=== PATIENT | male | born 1940 | race Two or more races ===

== ENCOUNTER 2016-07-28 15:49 | Emergency (ER) | payer MEDICARE ==
[2016-07-28 16:09] VITALS: BP 146/73
--- NOTE | 2016-07-28 16:51 | UC ---
Abdominal Pain Male HPI - HPI Summary HPI Summary: Pt presents with request for refill on Lomotil. Pt initially reported that his BM's have been formed and without: constipation, loose, blood mucous or foul order. During examination pt then reported that he ;had loose stools 1-3 X's per day for 3 days. Additionally, I asked the pt if he had taken OTC imodium and at first he stated that no he had not. Then during the exam he reported that yes he had taken imodium yesterday with no improvement. - History of Current Complaint Chief Complaint: UCAbdominalPain Stated Complaint: DIARRHEA Time Seen by Provider: 07/28/16 16:05 Hx Obtained From: Patient Onset/Duration: Gradual Onset, Lasting Days Timing: Intermittent Episodes Lasting: - minutes Severity Initially: Mild Severity Currently: None Radiates: No Aggravating Factor(s):: Nothing - denies Alleviating Factor(s): Nothing - denies Associated Signs And Symptoms: Positive: Diarrhea - pt's information regarding BM pattern has not been consistent throughout exam - Allergies/Home Medications Allergies/Adverse Reactions: Allergies Allergy/AdvReac Type Severity Reaction Status Date / Time No Known Allergies Allergy Verified 07/28/16 16:03 PMH/Surg Hx/FS Hx/Imm Hx Previously Healthy: No - see pmh Endocrine History Of: Reports: Diabetes - ., Dyslipidemia - On Denies: Thyroid Disease Cardiovascular History Of: Reports: Cardiac Disorders - [place] 03/2016, Hypertension Denies: Pacemaker/ICD, Myocardial Infarction, Congestive Heart Failure, Atrial Fibrillation, Deep Vein Thrombosis, Bleeding Disorders Respiratory History Of: Denies: COPD, Asthma, Bronchitis, Pneumonia, Pulmonary Embolism GI/ History Of: Denies: Gastroesophageal Reflux, Ulcer, Gastrointestinal Bleed, Gall Bladder Disease, Kidney Stones, Diverticulitis, Renal Disease, Urosepsis Neurological History Of: Denies: TIA, CVA, Dementia, Seizures, Migraine Psychological History Of: Denies: Anxiety, Depression, Bipolar Disorder, Schizophrenia, Post Traumatic Stress Disorder Cancer History Of: Denies: Lung Cancer, Colorectal Cancer, Breast Cancer, Prostate Cancer, Cervical Cancer Other History Of: Negative For: HIV, Hepatitis B, Hepatitis C, Anticoagulant Therapy - Surgical History Surgical History: Yes Surgery Procedure, Year, and Place: 2008 LEFT GREAT TOE SURGERY [facility] [place]. 01/2014 BILATERAL CATARACT [facility] [place] - Family History Known Family History: Positive: Cardiac Disease, Hypertension, Diabetes - Social History Alcohol Use: None Substance Use Type: None Smoking Status (MU): Never Smoked Tobacco Have You Smoked in the Last Year: No - Immunization History Most Recent Influenza Vaccination: 2015 Most Recent Tetanus Shot: 2009 Most Recent Pneumonia Vaccination: Unsure Review of Systems Constitutional: Negative Skin: Negative Eyes: Negative ENT: Negative Respiratory: Negative Cardiovascular: Negative Gastrointestinal: Diarrhea - pts verbal disclosure of BM's pattern inconsistent throughout exam Genitourinary: Negative Motor: Negative Neurovascular: Negative Musculoskeletal: Negative Neurological: Negative Psychological: Negative All Other Systems Reviewed And Are Negative: Yes Physical Exam Triage Information Reviewed: Yes Appearance: Well-Appearing Vital Signs: Initial Vital Signs Temp 96.4 F 07/28/16 16:04 Pulse 82 07/28/16 16:04 Resp 16 07/28/16 16:04 BP 146/73 07/28/16 16:04 Pulse Ox 97 07/28/16 16:04 Vital Signs Reviewed: Yes Neck exam: Normal Respiratory Exam: Normal Cardiovascular: Positive: Murmur:Sys:Grade _?_/ Abdominal Exam: Normal Bowel Sounds: Positive: Present Musculoskeletal Exam: Normal Neurological Exam: Normal Psychological Exam: Normal Skin Exam: Normal Abd Pain Male Course/Dx - Course Course Of Treatment: I discussed with the pt the need for routine screening sand test. Pt has not had a colonoscopy and has history of loose stools. I reveiwed the need to discover the reason, source for his intermittent loose stools/diarrhea - Differential Dx/Clinical Impression Differential Diagnosis/HQI/PQRI: Other - abdominal pain, medication refill Provider Diagnoses: abdominal discomfort. diarrhea. Pt is in need of routine health screenings. Discharge - Discharge Plan Condition: Stable Disposition: HOME Patient Education Materials: Acute Diarrhea (ED) Referrals: Roque Arevalo MD [Primary Care Provider] - Additional Instructions: You have been advised to follow up with your PCP as soon as possible. It is important for you to have continuity of care and routine health maintenance and screenings.
== END 2016-07-28 16:45 | disposition home or self-care (01) ==
LOC: UCEAST 15:49
DX: R10.84 Generalized abdominal pain (principal); R19.7 Diarrhea, unspecified
CPT/HCPCS: 99211; G0463

== ENCOUNTER 2017-03-30 11:09 | Emergency (ER) | payer MEDICARE ==
[2017-03-30 11:24] VITALS: BP 118/58
[2017-03-30] MEDS ORDERED: Levalbuterol 0.63MG/3ML NEB* UNIT OF USE INH ONE (11:26)
--- NOTE | 2017-03-30 11:44 | UC ---
Uriah Arreola SooYoung, scribed for Shagufta Rodríguez MD on 03/30/17 at 1121 . Shortness of Breath HPI - HPI Summary HPI Summary: A 76 y/o M diabetic with previous NV presents to [facility] [place] with gradual onset SOB onset two days ago. Associated sx: wheezing, cough. Denies CP, sore throat, or prodromal respiratory illness. Onset of symptoms began 2 days post dental work, but he has not had fever. He states he slept OK last night. Takes daily baby aspirin, which he did take today. Denies beta-claudine. His states pt was using her asthma inhaler last night to very mild relief. PMHx: NV in 2017, diabetes. Sees Dr. Inman, cardiology. PCP is Dr. Arevalo. [facility]. Pt states his blood sugars have been in the 150s. Denies PMHx: asthma, thyroid dz. - History of Current Complaint Stated Complaint: SOB Time Seen by Provider: 03/30/17 11:10 Hx Obtained From: Patient, Family/Collective Bargaining Specialist - Onset/Duration: Gradual Onset, Lasting Days, Still Present Timing: Constant Dyspnea At: Rest Associated Signs & Symptoms: Positive: Wheezing, Other - neg: CP, sore throat. Negative: Fever Related History: Obesity - Risk Factors Cardiac: Diabetes, Hypertension Pseudomonas: Negative Tuberculosis: Negative - Allergy/Home Medications Allergies/Adverse Reactions: Allergies Allergy/AdvReac Type Severity Reaction Status Date / Time No Known Allergies Allergy Verified 07/28/16 16:03 PMH/Surg Hx/FS Hx/Imm Hx - Additional Past Medical History Additional PMH: obese Previously Healthy: No Endocrine History: Diabetes, Other Other Endocrine History: neg: thyroid dz Cardiovascular History: Cardiac Disease - previous NV, no stenting., Hypertension Respiratory History: Other Other Respiratory History: neg: asthma Other History Of: Negative For: HIV, Hepatitis B, Hepatitis C, Anticoagulant Therapy - Surgical History Surgical History: Yes Surgery Procedure, Year, and Place: 2008 LEFT GREAT [place] [facility] [place] [facility] [place] [facility] [place] - Family History Known Family History: Positive: Cardiac Disease, Hypertension, Diabetes - Social History Occupation: Employed Full-time Lives: With Family Alcohol Use: None Substance Use Type: None Smoking Status (MU): Never Smoked Tobacco Have You Smoked in the Last Year: No - Immunization History Most Recent Influenza Vaccination: 2016 Most Recent Tetanus Shot: 2010 Most Recent Pneumonia Vaccination: Unsure Review of Systems Constitutional: Negative Skin: Other - being treated at wound clinic for sequelae of cellulitis. Eyes: Negative ENT: Negative Respiratory: Shortness Of Breath, Cough, Other - wheezing Cardiovascular: Negative Gastrointestinal: Negative Genitourinary: Negative Motor: Negative Neurovascular: Negative Musculoskeletal: Negative Neurological: Negative Psychological: Negative All Other Systems Reviewed And Are Negative: Yes Physical Exam Triage Information Reviewed: Yes Appearance: Ill-Appearing, Obese, Other: - short of breath at rest and with speech. Vital Signs: Initial Vital Signs Temp 97.2 F 03/30/17 11:19 Pulse 111 03/30/17 11:19 Resp 24 03/30/17 11:19 BP 118/58 03/30/17 11:19 Pulse Ox 94 03/30/17 11:19 Eyes: Positive: Conjunctiva Clear ENT: Positive: Pharynx normal Neck: Positive: Supple, Nontender, No Lymphadenopathy Respiratory: Positive: No accessory muscle use, Decreased breath sounds, Wheezing - expiratory wheezing. Cardiovascular: Positive: RRR, No Murmur - --no murmur heard, hx of mitral disease. Heart sounds distant. Abdomen Description: Positive: Nontender, No Organomegaly, Soft Musculoskeletal Exam: Normal Neurological: Positive: Alert, Muscle Tone Normal Skin: Positive: Other - both legs with skin induration, evidence of lymphedema. Diagnostics - EKG Cardiac Rhythm: Sinus: Normal Ectopy: None ST Segment: Non-Specific Shortness of Breath Dx - Course Course Of Treatment: An 76 y/o M diabetic with prev NV presents with gradual onset SOB onset two days ago. Associated sx: wheezing, cough. Denies CP, sore throat, fever. Medications reviewed this visit. BP is not elevated. Transferred to ER due to high risk of NV, unclear etiology of onset of dypsnea. - Differential Dx/Diagnosis Differential Diagnosis/HQI/PQRI: Asthma, CHF, NV, Unstable Angina Provider Diagnoses: progressive dyspnea, etiology unclear. Possible respiratory origin, must rule out possible cardiac component. - Physician Notification/Consults Time Discussed With Above Provider: 11:40 - advised CURATOR OF COLLECTIONS in ER of transfer Instructed by Provider To: Transfer Discharge - Discharge Plan Condition: Stable Disposition: TRANS HIGHER LVL OF CARE FAC The documentation as recorded by the Uriah barksdale SooYoung accurately reflects the service I personally performed and the decisions made by me, Shagufta Rodríguez MD.
[2017-03-30] MEDS ORDERED: NS 0.45% 1000 ML BAG* 1,000 ML IV SCH (12:00)
== END 2017-03-30 11:55 | disposition short-term general hospital (02) ==
LOC: UCEAST 11:09
DX: R06.00 Dyspnea, unspecified (principal); I25.2 Old myocardial infarction; E11.9 Type 2 diabetes mellitus without complications; I10 Essential (primary) hypertension
CPT/HCPCS: 93005; 99213; G0463; J7615

== ENCOUNTER 2017-03-30 12:19 | Inpatient (IN) | payer MEDICARE ==
--- NOTE | 2017-03-30 13:04 | RAD ---
Indication: Shortness of breath. 2 views of the chest including dual energy PA views demonstrates no mediastinal shift. Heart is of normal size. Interstitial edema consistent with vascular congestion is noted. This may represent CHF. When compared to previous exam of January 28, 2016 findings appear similar. IMPRESSION: Likely vascular congestion.
[2017-03-30] MEDS ORDERED: Albuterol/Ipratropium NEB.SOL* Albuterol 2.5 MG/Ipratropium 0.5 MG 3 ML INH ONE (14:06)
[2017-03-30 14:09] LABS: Hematocrit 40 % (42-52); Hemoglobin 13.3 g/dl (14.0-18.0); Mean Corpuscular HGB Conc 33 g/dl (31-36); Mean Corpuscular Hemoglobin 31 pg (27-31); Mean Corpuscular Volume 95 fL (80-94); Mean Platelet Volume 9 um3 (7.4-10.4); Red Blood Count 4.24 10^6/ul (4.0-5.4); Red Cell Distribution Width 14 % (10.5-15); White Blood Count 10.6 10^3/ul (3.5-10.8)
[2017-03-30 14:25] LABS: Albumin 3.6 g/dL (3.2-5.2); BUN/Creatinine Ratio 15.8 (8-20); C Reactive Protein 8.92 mg/L (< 5.00); Calcium 9.2 mg/dL (8.6-10.3); EGFR African American 63.6 (>60); EGFR Non-African American 49.4 (>60); Globulin 3.4 g/dL (2-4); Total Bilirubin 0.4 mg/dL (0.2-1.0)
[2017-03-30 14:29] LABS: Potassium 5.4 mmol/L (3.5-5.0)
[2017-03-30 14:31] LABS: Troponin I 0.06 ng/mL (<0.04)
[2017-03-30] MEDS ORDERED: Furosemide IV* 10 MG/ML 2 ML VIAL (20 MG) IV ONE ×2 (14:57→18:06)
--- NOTE | 2017-03-30 16:09 | ED ---
Sharri Arreola Alfonso, scribed for Carlos Park MD on 03/30/17 at 1233 . Shortness of Breath - HPI Summary HPI Summary: This patient is a 76 year old M BIBA to [facility] accompanied by with a chief complaint of SOB since a few days ago. The patient rates the pain 0/10 in severity. Symptoms aggravated by exertion. Symptoms alleviated slightly by albuterol. Patient denies fever, CP, cough, and weight gain. He reports he can lie flat when he sleeps. PMHx includes DM. - History of Current Complaint Time Seen by Provider: 03/30/17 12:26 Hx Obtained From: Patient Onset/Duration: Sudden Onset, Lasting Days, Still Present Timing: Constant Dyspnea At: Exertion Aggrevating Factors: Other - exertion Alleviating Factors: Other - albuterol Associated Signs & Symptoms: Negative Related History: Obesity - Allergy/Home Medications Allergies/Adverse Reactions: Allergies Allergy/AdvReac Type Severity Reaction Status Date / Time No Known Allergies Allergy Verified 07/28/16 16:03 PMH/Surg Hx/FS Hx/Imm Hx Endocrine/Hematology History: Reports: Hx Diabetes - type 2 Denies: Hx Anticoagulant Therapy, Hx Thyroid Disease, Hx Anemia Cardiovascular History: Reports: Hx Hypercholesterolemia, Hx Hypertension Denies: Hx Congestive Heart Failure, Hx Deep Vein Thrombosis, Hx Myocardial Infarction, Hx Pacemaker/ICD Respiratory History: Denies: Hx Asthma, Hx Chronic Obstructive Pulmonary Disease (COPD), Hx Lung Cancer, Hx Pneumonia, Hx Pulmonary Embolism GI History: Denies: Hx Gall Bladder Disease, Hx Gastrointestinal Bleed, Hx Jaundice, Hx Ulcer, Hx Urosepsis History: Denies: Hx Kidney Stones, Hx Renal Disease Musculoskeletal History: Reports: Other Musculoskeletal History - LEFT KNEE PAIN R/T ATHRITIS Sensory History: Reports: Hx Cataracts - BILATERAL, Other Sensory Impairments - DECREASED SENSATION IN FEET AND LEGS Denies: Hx Contacts or Glasses, Hx Hearing Aid Opthamlomology History: Reports: Hx Cataracts - BILATERAL, Other Sensory Impairments - DECREASED SENSATION IN FEET AND LEGS Denies: Hx Contacts or Glasses Neurological History: Denies: Hx Dementia, Hx Headaches, Hx Migraine, Hx Seizures, Hx Transient Ischemic Attacks (TIA) Psychiatric History: Denies: Hx Anxiety, Hx Depression, Hx Panic Disorder, Hx Schizophrenia, Hx Bipolar Disorder - Surgical History Surgery Procedure, Year, and Place: 2008 LEFT GREAT TOE SURG[place] [facility] [place]. 01/2014 BILATERAL CATARACT [facility] Hx Anesthesia Reactions: No Infectious Disease History: Denies: Hx Clostridium Difficile, Hx Hepatitis, Hx Human Immunodeficiency Virus (HIV), Hx of Known/Suspected MRSA, Hx Shingles, Hx Tuberculosis, Hx Known/ Suspected VRE, Hx Known/Suspected VRSA, History Other Infectious Disease - Family History Known Family History: Positive: Cardiac Disease, Hypertension, Diabetes - Social History Alcohol Use: None Substance Use Type: Reports: None Smoking Status (MU): Never Smoked Tobacco Have You Smoked in the Last Year: No Review of Systems Negative: Fever Negative: Chest Pain Positive: Shortness Of Breath. Negative: Cough Positive: Other - Negative weight gain All Other Systems Reviewed And Are Negative: Yes Physical Exam - Summary Physical Exam Summary: VITAL SIGNS: Reviewed. GENERAL: Patient is a well-developed and obese male who is lying comfortable in the stretcher. Patient is in slight acute respiratory distress. He is able to speak in full sentences. HEAD AND FACE: No signs of trauma. No ecchymosis, hematomas or skull depressions. No sinus tenderness. EYES: PERRLA, EOMI x 2, No injected conjunctiva, no nystagmus. EARS: Hearing grossly intact. Ear canals and tympanic membranes are within normal limits. MOUTH: Oropharynx within normal limits. NECK: Supple, trachea is midline, no adenopathy, no JVD, no carotid bruit, no c- spine tenderness, neck with full ROM. CHEST: Symmetric, no tenderness at palpation LUNGS: Clear to auscultation bilaterally. No wheezing or crackles. Decreased breath sounds bilaterally. CVS: Regular rate and rhythm, S1 and S2 present, no murmurs or gallops appreciated. ABDOMEN: Soft, non-tender. Distention. No rebound no guarding, and no masses palpated. Bowel sounds are normal. EXTREMITIES: FROM in all major joints, no cyanosis or clubbing. Bilateral LE edema 2+. NEURO: Alert and oriented x 3. No acute neurological deficits. Speech is normal and follows commands. SKIN: Dry and warm Triage Information Reviewed: Yes Vital Signs On Initial Exam: Initial Vitals Temp Pulse Resp BP Pulse Ox 98.5 F 96 18 132/75 97 03/30/17 12:30 03/30/17 12:30 03/30/17 12:30 03/30/17 12:30 03/30/17 12:30 Vital Signs Reviewed: Yes Diagnostics - Vital Signs Vital Signs Temp Pulse Resp BP Pulse Ox 03/30/17 14:22 106 25 100 03/30/17 14:06 18 03/30/17 13:30 50 24 138/60 99 03/30/17 13:00 51 116/68 95 03/30/17 12:37 19 03/30/17 12:36 132/75 03/30/17 12:30 98.5 F 96 18 132/75 97 - Laboratory Lab Results: Lab Results 03/30/17 03/30/17 03/30/17 Range/Units 13:45 13:45 13:45 WBC 10.6 (3.5-10.8) 10^3/ul RBC 4.24 (4.0-5.4) 10^6/ul Hgb 13.3 L (14.0-18.0) g/dl Hct 40 L (42-52) % MCV 95 H (80-94) fL MCH 31 (27-31) pg MCHC 33 (31-36) g/dl RDW 14 (10.5-15) % Plt Count 184 (150-450) 10^3/ul MPV 9 (7.4-10.4) um3 Neut % (Auto) 71.2 (38-83) % Lymph % (Auto) 17.5 L (25-47) % [place] % (Auto) 9.0 (1-9) % Eos % (Auto) 2.0 (0-6) % Baso % (Auto) 0.3 (0-2) % Absolute Neuts (auto) 7.5 (1.5-7.7) 10^3/ul Absolute Lymphs (auto) 1.9 (1.0-4.8) 10^3/ul Absolute Monos (auto) 1.0 H (0-0.8) 10^3/ul Absolute Eos (auto) 0.2 (0-0.6) 10^3/ul Absolute Basos (auto) 0 (0-0.2) 10^3/ul Absolute Nucleated RBC 0 10^3/ul Nucleated RBC % 0 INR (Anticoag Therapy) (0.89-1.11) D-Dimer, Quantitative (Less Than 230) ng/mL Sodium 133 (133-145) mmol/L Potassium 5.4 H (3.5-5.0) mmol/L Chloride 103 (101-111) mmol/L Carbon Dioxide 25 (22-32) mmol/L Anion Gap 5 (2-11) mmol/L BUN 22 (6-24) mg/dL Creatinine 1.39 H (0.67-1.17) mg/dL Est GFR ( Amer) 63.6 (>60) Est GFR (Non-Af Amer) 49.4 (>60) BUN/Creatinine Ratio 15.8 (8-20) Glucose 240 H (70-100) mg/dL Lactic Acid 2.3 H* (0.5-2.0) mmol/L Calcium 9.2 (8.6-10.3) mg/dL Total Bilirubin 0.40 (0.2-1.0) mg/dL AST 17 (13-39) U/L ALT 21 (7-52) U/L Alkaline Phosphatase 103 (34-104) U/L Total Creatine Kinase 106 (10-223) U/L CK-MB (CK-2) 5.4 (0.6-6.3) ng/mL Troponin I 0.06 H* (<0.04) ng/mL C-Reactive Protein 8.92 H (< 5.00) mg/L B-Natriuretic Peptide ( - 100) pg/mL Total Protein 7.0 (6.4-8.9) g/dL Albumin 3.6 (3.2-5.2) g/dL Globulin 3.4 (2-4) g/dL Albumin/Globulin Ratio 1.1 (1-3) 03/30/17 03/30/17 Range/Units 13:45 13:45 WBC (3.5-10.8) 10^3/ul RBC (4.0-5.4) 10^6/ul Hgb (14.0-18.0) g/dl Hct (42-52) % MCV (80-94) fL MCH (27-31) pg MCHC (31-36) g/dl RDW (10.5-15) % Plt Count (150-450) 10^3/ul MPV (7.4-10.4) um3 Neut % (Auto) (38-83) % Lymph % (Auto) (25-47) % [place] % (Auto) (1-9) % Eos % (Auto) (0-6) % Baso % (Auto) (0-2) % Absolute Neuts (auto) (1.5-7.7) 10^3/ul Absolute Lymphs (auto) (1.0-4.8) 10^3/ul Absolute Monos (auto) (0-0.8) 10^3/ul Absolute Eos (auto) (0-0.6) 10^3/ul Absolute Basos (auto) (0-0.2) 10^3/ul Absolute Nucleated RBC 10^3/ul Nucleated RBC % INR (Anticoag Therapy) 1.00 (0.89-1.11) D-Dimer, Quantitative 297 H (Less Than 230) ng/mL Sodium (133-145) mmol/L Potassium (3.5-5.0) mmol/L Chloride (101-111) mmol/L Carbon Dioxide (22-32) mmol/L Anion Gap (2-11) mmol/L BUN (6-24) mg/dL Creatinine (0.67-1.17) mg/dL Est GFR ( Amer) (>60) Est GFR (Non-Af Amer) (>60) BUN/Creatinine Ratio (8-20) Glucose (70-100) mg/dL Lactic Acid (0.5-2.0) mmol/L Calcium (8.6-10.3) mg/dL Total Bilirubin (0.2-1.0) mg/dL AST (13-39) U/L ALT (7-52) U/L Alkaline Phosphatase (34-104) U/L Total Creatine Kinase (10-223) U/L CK-MB (CK-2) (0.6-6.3) ng/mL Troponin I (<0.04) ng/mL C-Reactive Protein (< 5.00) mg/L B-Natriuretic Peptide 531 H ( - 100) pg/mL Total Protein (6.4-8.9) g/dL Albumin (3.2-5.2) g/dL Globulin (2-4) g/dL Albumin/Globulin Ratio (1-3) Result Diagrams: 03/30/17 13:45 03/30/17 13:45 Lab Statement: Any lab studies that have been ordered have been reviewed, and results considered in the medical decision making process. - Radiology CXR Radiology Interpretation Completed By: Radiologist - Likely vascular congestion. ED physician has reviewed this radiology report and agrees. - EKG 1235 Cardiac Rate: Tachycardia EKG Rhythm: Sinus Tachycardia EKG Comparison: Other - Bigeminy new from 01/28/16 Course/Dx - Course Assessment/Plan: This patient is a 76 year old M BIBA to [facility] accompanied by with a chief complaint of SOB since a few days ago. The patient rates the pain 0/10 in severity. Symptoms aggravated by exertion. Symptoms alleviated slightly by albuterol. Patient denies fever, CP, cough, and weight gain. He reports he can lie flat when he sleeps. PMHx includes DM. An EKG reveals sinus tachycardia and Bigeminy new from 01/28/16. Test results with no significant abnormalities except for slight anemia which is chronic for the patient, potassium of 5.4, creatinine of 1.39, troponin of 0.06, and BNP of 531, consistent with CHF exacerbation. CXR reveals Likely vascular congestion. ED physician has reviewed this radiology report and agrees. Therefore, the patient was given Lasix. While in the ED, the patient developed wheezing, therefore he was given Duoneb treatment. At this time, I consulted Dr. Robin (hospitalist) at 1500 who agrees to admit for CHF exacerbation, wheezing, and r/o acute coronary syndrome. The patient is hemodynamically stable, alert and oriented x3. - Diagnoses Differential Diagnosis/HQI/PQRI: Positive: Asthma, Bronchitis, CHF, COPD Exacerbation, Pneumonia, Pulmonary Edema Provider Diagnoses: CHF exacerbation, Wheezing, r/o acute coronary syndrome - Physician Notifications Discussed Care of Patient With: Chuckie Robin Time Discussed With Above Provider: 15:00 Instructed by Provider To: Other - Consulted Dr. Robin (hospitalist) at 1500 who agrees to admit. Consulted Dr. Megan Dowling (ingredient mixer) regarding the patient. Discharge - Discharge Plan Condition: Stable Disposition: ADMITTED TO [facility] Referrals: Roque Arevalo MD [Primary Care Provider] - The documentation as recorded by the Sharri barksdale Alfonso accurately reflects the service I personally performed and the decisions made by , Carlos Park MD.
[2017-03-30 17:56] LABS: Urine Bacteria Absent (Absent); Urine Bilirubin Negative (Negative); Urine Glucose Negative (Negative); Urine Nitrite Negative (Negative)
--- NOTE | 2017-03-30 19:22 | RAD ---
Indication: Renal calculus. Flat plate of the abdomen demonstrates no free air. No dilated loops of bowel are noted. No evidence of radiopaque calculus is noted. IMPRESSION: No free air or obstruction is noted. No radiopaque calculi is noted.
[2017-03-30] MEDS ORDERED: Insulin GLARGINE(*) 1 UNITS UNIT SUBCUT SCH (21:00)
--- NOTE | 2017-03-30 22:14 | HP ---
CC: Dr. Arevalo* HISTORY AND PHYSICAL: DATE OF ADMISSION: 03/30/17 PRIMARY CARE PHYSICIAN: Dr. Arevalo. CHIEF COMPLAINT: Shortness of breath. HISTORY OF PRESENT ILLNESS: Mr. Zamorano is a 76-year-old Japanese man with a past medical history of type 2 diabetes, aortic stenosis, diastolic dysfunction , chronic lower extremity wounds, obesity, OA, hyperlipidemia, who presented to the hospital with shortness of breath. The patient states his symptoms began 2 days ago. He cannot recall exactly when during the day or what he was doing at that time, but he noticed his breathing became labored. He felt that he may have been wheezing a bit. Denies any sick contacts, fever, chills. No associated chest pain. Over the following days, the breathing worsened. He noted his exercise tolerance is decreasing, became dyspneic on very little exertion. Also, with orthopnea, finding it difficult to lie down flat. He has chronic lower extremity edema. He does not think it was any worse than usual. He does not think he has been gaining any weight and has not reported any significant dietary changes. He presented to [facility] today and they were concerned enough to send him to the hospital for further evaluation. In the emergency department, the patient was found to have an elevated B natriuretic peptide. Physical exam and chest x-ray findings significant for fluid overload. Hospitalist service was consulted to consider the patient for admission. Of note, the patient began to urinate after receiving some Lasix in the emergency department and during his second urination, he noticed blood in the urine and also reported some dysuria, which he states is new. No flank pain. There is no history of kidney stones and this just began today in the emergency department. PAST MEDICAL HISTORY: Type 2 diabetes, aortic stenosis, diastolic dysfunction, chronic lower extremity wounds, obesity, OA. PAST SURGICAL HISTORY: Partial toe amputations on the left. ALLERGIES: No known drug allergies. FAMILY HISTORY: Significant for mother with diabetes, father with diabetes, brother with diabetes, sister with diabetes. SOCIAL HISTORY: The patient denies any alcohol use. No tobacco abuse. No illicit drug use. REVIEW OF SYSTEMS: A 12-point review of systems is negative except for those on the HPI. PHYSICAL EXAMINATION GENERAL: The patient is an elderly obese, Japanese man, sitting on the edge of the bed, in no apparent distress. VITAL SIGNS: On admission, temperature 98.5, heart rate of 96, respiratory rate of 18, O2 saturation 97% on 3 L, blood pressure 132/75. HEENT: Head: Normocephalic, atraumatic. Eyes: Pupils equal, round, and reactive to light and accommodation. Anicteric sclerae. ENT: Dry mucous membranes. No cervical adenopathy. CARDIOVASCULAR: Tachycardia. Systolic ejection murmur. S3 present. LUNGS: The patient with rales in bilateral bases. ABDOMEN: Obese, soft, nontender, nondistended. Bowel sounds positive. EXTREMITIES: The patient with pitting edema to below the knees bilaterally. Reports this is chronic and no worse than normal. NEURO: The patient is alert and oriented x3. No focal neurological deficits. LABORATORY DATA AND DIAGNOSTICS: White blood cell count 10.6, hematocrit of 40 , platelets of 184. INR 1. D-dimer of 297. Sodium 133, potassium 5.4, chloride of 103, BUN 22, creatinine of 1.39, and glucose of 240. Lactic acid 2.3. LFTs within normal limits. Troponin of 0.06. CRP of 8.9. B natriuretic peptide of 531. UA with 3+ blood, 3+ rbc's. EKG personally reviewed shows sinus tachycardia. Chest x- ray personally reviewed shows evidence of pulmonary edema. ASSESSMENT AND PLAN: Acute on chronic diastolic congestive heart failure exacerbation and hematuria in a 76-year-old man with a past medical history of type 2 diabetes, aortic stenosis, diastolic dysfunction, chronic lower extremity wounds, obesity, and osteoarthritis. 1. Acute on chronic diastolic congestive heart failure exacerbation. The patient received 20 mg of IV Lasix in the emergency department. We will give another 20 mg. We will monitor the patient with strict I's and O's. Left echocardiogram was from a little over a year ago. At that time, his EF was 50% to 55% and he had evidence of diastolic dysfunction. We will repeat a transthoracic echocardiogram at this time. The patient has a mild troponin elevation likely due to congestive heart failure . We will continue to trend this for now and monitor the patient on telemetry. 2. Hematuria. This just began here in the hospital. He states he has no history of kidney stones. Urinalysis shows blood but no evidence of infection. He seemed a bit hesitant to proceed with a CT scan, so we will start with abdominal plain film to see there is any evidence of renal stones and can proceed with a workup from there. 3. Type 2 diabetes. The patient is on Humulin 70/30 at home. We will convert him to Lantus, start at 50 units at bedtime and write for a Humalog insulin sliding scale. Continue the patient's home metformin for now. 4. Hyperlipidemia. Continue home simvastatin. 5. Hypertension. Continue home ramipril. 6. DVT prophylaxis. SCDs in the setting of hematuria. 7. Code status. The patient is a full code. TIME SPENT: Total time spent on this admission 45 minutes with half of the time spent [id number] with the patient in counseling and coordinating care. [id number]/CPS #: [id number] DINORA
[2017-03-31 05:58] LABS: Hematocrit 40 % (42-52); Hemoglobin 13.4 g/dl (14.0-18.0); Mean Corpuscular HGB Conc 33 g/dl (31-36); Mean Corpuscular Hemoglobin 31 pg (27-31); Mean Corpuscular Volume 94 fL (80-94); Mean Platelet Volume 9 um3 (7.4-10.4); Red Blood Count 4.27 10^6/ul (4.0-5.4); Red Cell Distribution Width 13 % (10.5-15); White Blood Count 9.8 10^3/ul (3.5-10.8)
[2017-03-31 06:10] LABS: BUN/Creatinine Ratio 16.7 (8-20); Calcium 9.1 mg/dL (8.6-10.3); EGFR African American 64.1 (>60); EGFR Non-African American 49.8 (>60)
[2017-03-31 06:26] LABS: Potassium 5.1 mmol/L (3.5-5.0)
[2017-03-31] MEDS ORDERED: Insulin LISPRO* 1 UNITS UNIT SUBCUT SCH ×2 (07:30)
[2017-03-31] MEDS: Aspirin EC Low Dose* 81 MG TAB.EC PO SCH (08:11)
--- NOTE | 2017-03-31 08:27 | PN ---
Subjective - Subjective Reason for Note: Progress Note History: He presents with acute dypsnea since 03/28/2017. He has had according to his Terrell, orthopnea and paroxysmal nocturnal dyspnea. There have not been any precipitating events - he has not eaten more salt, had any chest pain or palpitations and his ankles are not any more swollen than usual. He has improved since receiving IV furosemide. He was repeatedly using his 's MDI - so she bought him to the ED. He has hyperglycemia - he usually receives 70/30 insulin 55 units qam, 55 units lunch, 65 units HS. He has marked insulin resistance and has had no recent hypoglycemia. In the [facility] his glucose levels have risen. Apparently, he had some jennifer hematuria in the ED. He has no symptoms suggestive of renal stones or UTI. Active Problems: Active Problems Acute dyspnea (Acute) R06.00 Diastolic CHF (Acute) I50.30 Hematuria (Acute) R31.9 Troponin level elevated (Acute) R79.89 Ventricular extrasystoles (Acute) I49.3 Aortic stenosis (Chronic) I35.0 Atrial septal defect (Chronic) Q21.1 Hypercholesteremia (Chronic) E78.0 Left ventricular hypertrophy (Chronic) I51.7 Mild mitral regurgitation (Chronic) I34.0 Obesities, morbid (Chronic) E66.01 Type 2 diabetes mellitus with neurological manifestations, uncontrolled (Chronic ) E11.49, E11.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, uncontrolled, with renal complications (Chronic) E11.29, E11.65 Current Medications: Current Medications Aspirin (Aspirin Ec Low Dose*) 81 mg PO DAILY [facility] Last Admin: 03/31/17 08:11 Dose: 81 mg Atorvastatin Calcium (Lipitor*) 40 mg PO QPM [facility] Insulin Glargine (Lantus(*)) 50 units SUBCUT BEDTIME [facility] Last Admin: 03/30/17 20:15 Dose: 50 unit Insulin Human Lispro (Humalog*) 0 units SUBCUT AC [facility] PRN Reason: Protocol Insulin Human Lispro (Humalog*) 0 units SUBCUT AC [facility] PRN Reason: Protocol Metformin HCl (Glucophage*) 500 mg PO BID [facility] Last Admin: 03/31/17 08:11 Dose: 500 mg Home Medications: Home Medications Medication Instructions Recorded Confirmed Type Insulin ISOPH/REG 70/30 (*) 60 unit SUBCUT QAM 02/24/15 03/30/17 History [HumulIN 70/30 (*)] Ramipril CAP* [Altace CAP*] 5 mg PO DAILY 02/24/15 03/30/17 History Liraglutide [Victoza] 1.8 ml SUBCUT DAILY 06/16/15 03/30/17 History Insulin ISOPH/REG 70/30 (*) 55 units SUBCUT BEDTIME 06/28/15 03/30/17 History [HumuLIN 70/30 (*)] Aspirin EC Low Dose* [Ecotrin EC 81 mg PO DAILY 02/07/16 03/30/17 History Low Dose 81 MG*] Simvastatin [Zocor 40 MG (NF)] 40 mg PO QPM 02/07/16 03/30/17 History metFORMIN* [Glucophage 500 MG TAB 500 mg PO BID 03/30/17 03/30/17 History *] Allergies: Allergies Allergy/AdvReac Type Severity Reaction Status Date / Time No Known Allergies Allergy Verified 07/28/16 16:03 Objective - Vital Signs Vital Signs: Vital Signs 03/30/17 03/30/17 03/30/17 15:30 16:00 16:32 Temperature Pulse Rate 51 50 Respiratory 20 Rate Blood Pressure 117/66 135/54 62/46 (mmHg) O2 Sat by Pulse 96 94 Oximetry 03/30/17 03/30/17 03/30/17 18:37 18:49 19:38 Temperature 97.8 F 97.8 F 98.3 F Pulse Rate 105 108 103 Respiratory 16 22 24 Rate Blood Pressure 124/69 124/69 112/66 (mmHg) O2 Sat by Pulse 96 98 94 Oximetry 03/31/17 03/31/17 03/31/17 00:30 03:23 04:39 Temperature 98.1 F 98.2 F Pulse Rate 98 40 89 Respiratory 20 20 Rate Blood Pressure 148/75 131/59 (mmHg) O2 Sat by Pulse 100 98 Oximetry - Intake and Output Intake and Output: Intake & Output 03/28/17 03/29/17 03/30/17 03/31/17 11:59 11:59 11:59 11:59 Intake Total 202 Output Total 1075 Balance -873 Weight 277 lb 3.2 oz Intake: IV Fluids 2 Oral 200 Output: Urine 1075 Other: # Bowel Movements 0 Intake and Output Start: 03/30/17 16: 21 Freq: DAILY@0600,1400,2200 Status: Active Document 03/30/17 19:09 [id number] (Rec: 03/30/17 19:09 [id number]) Document 03/31/17 05:56 [id number] (Rec: 03/31/17 05:56 [id number]) - Physical Exam General: No Cyanosis, No Anemia, No Jaundice, No Clubbing Skin: Normal: Rash, Lesions Endocrine: Yes Central Obesity, No Acromegaly, No Vitiligo, No Flushing, No Acanthosis nigricans, No Violaceious striae, No [place] Syndrome, No Buccal pigmenatation Lungs and Chest: Yes: Chest Expansion Full, Chest Expansion Symetrica, Percussion Note Resonant, Vessicular Breath Sounds, Wheezes, Respiratory Distress. No: Crackles, Use of Accessory Muscles Heart Rate and Rhythm: Tachycardia JVP: Elevated Additional Cardiovascular: Yes: Normal Heart Sounds, Heart Murmur - FAVIOLA 3/6 aortic area, Pedal Edema - 1+. No: Carotid Bruits Abdominal Exam: Yes: Soft, Bowel Sounds Present. No: Distention, Abdominal Mass , Hepatomegaly, Abdominal Tenderness - Extremities Cranial Nerves II-XII Intact: Yes - Neuro Orientation: A/O x3 Speech: Normal Results - Results Lab Results: Laboratory Results - last 24 hr 03/30/17 03/30/17 03/31/17 17:38 20:17 00:30 WBC RBC Hgb Hct MCV MCH MCHC RDW Plt Count MPV Neut % (Auto) Lymph % (Auto) Throckmorton % (Auto) Eos % (Auto) Baso % (Auto) Absolute Neuts (auto) Absolute Lymphs (auto) Absolute Monos (auto) Absolute Eos (auto) Absolute Basos (auto) Absolute Nucleated RBC Nucleated RBC % Sodium Potassium Chloride Carbon Dioxide Anion Gap BUN Creatinine Est GFR ( Amer) Est GFR (Non-Af Amer) BUN/Creatinine Ratio Glucose POC Glucose (mg/dL) Calcium Troponin I 0.07 H* 0.07 H* Urine Color Yellow Urine Appearance Cloudy Urine pH 5.0 Ur Specific [place] 1.008 L Urine Protein 1+(30 mg/dl) H Urine Ketones Negative Urine Blood 3+ H Urine Nitrate Negative Urine Bilirubin Negative Urine Urobilinogen Negative Ur Leukocyte Esterase Negative Urine WBC (Auto) Absent Urine RBC (Auto) 3+(>10/hpf) H Urine Bacteria Absent Hyaline Casts Present H Urine Glucose Negative 03/31/17 03/31/17 03/31/17 05:30 05:42 07:33 WBC 9.8 RBC 4.27 Hgb 13.4 L Hct 40 L MCV 94 MCH 31 MCHC 33 RDW 13 Plt Count 200 MPV 9 Neut % (Auto) 68.3 Lymph % (Auto) 19.4 L Throckmorton % (Auto) 9.8 H Eos % (Auto) 2.2 Baso % (Auto) 0.3 Absolute Neuts (auto) 6.7 Absolute Lymphs (auto) 1.9 Absolute Monos (auto) 1.0 H Absolute Eos (auto) 0.2 Absolute Basos (auto) 0 Absolute Nucleated RBC 0 Nucleated RBC % 0 Sodium 131 L Potassium 5.1 H Chloride 98 L Carbon Dioxide 26 Anion Gap 7 BUN 23 Creatinine 1.38 H Est GFR ( Amer) 64.1 Est GFR (Non-Af Amer) 49.8 BUN/Creatinine Ratio 16.7 Glucose 331 H POC Glucose (mg/dL) > 444 H* Calcium 9.1 Troponin I Urine Color Urine Appearance Urine pH Ur Specific [place] Urine Protein Urine Ketones Urine Blood Urine Nitrate Urine Bilirubin Urine Urobilinogen Ur Leukocyte Esterase Urine WBC (Auto) Urine RBC (Auto) Urine Bacteria Hyaline Casts Urine Glucose Radiology Results: Patient Name: ANJELICA WALTER Medical Record#: [id number] Ordering Physician: Carlos Park MD Acct.#: [id number] : 1940 Age: 76 Sex: M Location: EMERGENCY DEPARTMENT Exam Date: 03/30/17 1230 ADM Status: REG ER Order Information: CHEST PA & LAT 2 VWS Accession Number: [id number] CPT: 86142 Indication: Shortness of breath. 2 views of the chest including dual energy PA views demonstrates no mediastinal shift. Heart is of normal size. Interstitial edema consistent with vascular congestion is noted. This may represent CHF. When compared to previous exam of January 28, 2016 findings appear similar. IMPRESSION: Likely vascular congestion. <Electronically signed by Chioma Lloyd MD in OV> 03/30/17 1300 Dictated By: Chioma Lloyd MD Dictated Date/Time: 03/30/17 1300 Transcribed Date/Time: 03/30/17 1259 Copy to: CC:Roque Arevalo MD; Carlos Park MD [facility] [address] [address] [address] ph [phone]) ph ([phone]) ph ([phone]) Patient Name: ANJELICA WALTER Medical Record#: [id number] Ordering Physician: Chuckie Robin MD Acct.#: [id number] : 1940 Age: 76 Sex: M Location: [address] [place] [address] - MEDICAL/TELEMETRY Exam Date: 03/30/171803 ADM Status: ADM IN Order Information: ABDOMEN/KUB 1 VW Accession Number: [id number] CPT: 41117 Indication: Renal calculus. Flat plate of the abdomen demonstrates no free air. No dilated loops of bowel are noted. No evidence of radiopaque calculus is noted. IMPRESSION: No free air or obstruction is noted. No radiopaque calculi is noted. <Electronically signed by Chioma Lloyd MD in OV> 03/30/171918 Dictated By: Chioma Lloyd MD Dictated Date/Time: 03/30/171918 Transcribed Date/Time: 03/30/171916 Copy to: CC:Roque Arevalo MD; Chuckie Robin MD [facility] [id number] [place] [address] ph ([phone]) ph ([phone]) ph ([phone]) 1 of 1 EKG Report: EKG 03/30/17 12:35 Sinus tachycardia 105 WA 190 QTc 479 QRS axis -7 Run of ventricular bigeminy. 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 The appears to be no trigger. He is a patient of Dr. Rajni Inman - 01/03/2016 Stress test: some fixed defects basal segments of inferior wall and septal hypokinesis. 02/18/16 he had a tranesophageal echocardiogram Mild /MS. He had a small ASD seen on bubble test. He has a transthoracic echocardiogram ordered. He does not take routine diuretics at home. I will obtain a cardiology consultation and start him on oral diuretics. Aortic stenosis (Chronic)Mild mitral regurgitation (Chronic) The transthoracic echocardiogram will tell us if there has been any progression Hematuria (Acute) This is new. He may have a UTI. Alternatively, he may have renal stone disease. I will check an US kidneys as his plain film of his abdomen was unhelpful Hypercholesteremia (Chronic) continue current Rx Obesities, morbid (Chronic) ongoing issue Type 2 diabetes mellitus with neurological manifestations, uncontrolled (Chronic )Type 2 diabetes mellitus, uncontrolled, with renal complications (Chronic) He has marked insulin resistance. With his combined CHF and stage 3 renal disease , I will stop metformin. He likely requires another agent to reduce insulin resistance - I will consider options after discharge. He takes 70/30 insulin as an outpatient because of compliance and cost. I will use a basal/bolus regimen in the hospital. He has poor detention diabetic control.' I spoke with Sarah and they agree with the management plan.
[2017-03-31] MEDS: Insulin LISPRO* 1 UNITS UNIT SUBCUT SCH ×5 (08:44→18:57)
[2017-03-31] MEDS: Insulin GLARGINE(*) 1 UNITS UNIT SUBCUT SCH ×2 (08:44→20:58)
[2017-03-31] MEDS ORDERED: Potassium Chlor TAB* 20 MEQ TAB.ER PO SCH (09:00)
[2017-03-31] MEDS ORDERED: metFORMIN* 500 MG TAB PO SCH (09:00)
[2017-03-31] MEDS: Metoprolol Succinate XL TAB* 25 MG PO SCH (10:24)
[2017-03-31] MEDS: Ramipril CAP* 5 MG PO SCH (10:24)
[2017-03-31] MEDS: Heparin VIAL(*) 5000 UNITS/ML VIAL (FIVE THOUSAND) SUBCUT SCH ×2 (13:17→20:58)
[2017-03-31] MEDS ORDERED: Perflutren Lipid Microsphere* 3 ML VIAL ONE (14:42)
[2017-03-31] MEDS: Furosemide TAB* 40 MG PO SCH (17:27)
[2017-03-31] MEDS: Atorvastatin* 20 MG TAB PO SCH (17:28)
[2017-03-31] MEDS ORDERED: Iodixanol* (CONTRAST) 320 MG/ML 100 ML SDV IV ONE (18:40)
--- NOTE | 2017-03-31 19:15 | RAD ---
INDICATION: Shortness of breath, elevated d-dimer. COMPARISON: Comparison is made with a prior chest x-ray study from March 30, 2017. TECHNIQUE: A CT angiogram of the chest was performed with intravenous following intravenous injection of 96 ml of Visipaque 320 nonionic contrast. Contiguous axial sections were obtained from the lung apices through the lung bases. Images were reconstructed in the coronal and sagittal planes. FINDINGS: There is motion artifact throughout the study limiting the exam. No intraluminal filling defect or pulmonary embolism is seen although the study is nondiagnostic for pulmonary emboli. The heart appears mildly prominent. No pericardial effusion is present. The thoracic aorta is normal in caliber and demonstrates homogeneous contrast opacification. There is a mildly prominent lymph node in the subcarinal region measuring 1.2 cm in size and a slightly prominent lymph node in the right paratracheal region. No enlarged hilar lymph nodes are appreciated. There is diffuse prominence of the interstitial markings scattered small groundglass infiltrates and small bilateral pleural effusions suggestive of congestive heart failure. No significant focal osseous abnormality is seen. The results of this exam were discussed with the referring clinician. IMPRESSION: 1. LIMITED NONDIAGNOSTIC STUDY FOR PULMONARY EMBOLI. 2. FINDINGS MOST CONSISTENT WITH CONGESTIVE HEART FAILURE. 3. MILDLY ENLARGED MEDIASTINAL LYMPH NODES.
--- NOTE | 2017-03-31 20:00 | RAD ---
INDICATION: Hematuria. COMPARISON: Comparison is made with a prior renal ultrasound from December 27, 2013. TECHNIQUE: Multiple real-time images of the kidneys and urinary bladder were obtained. FINDINGS: The kidneys are normal in size shape and echogenicity. The right kidney measured 10.4 x 4.1 x 5.4 cm and the left kidney measured 11.4 x 5.0 x 5.0 cm. No hydronephrosis is seen. There is a 6.7 x 6.3 x 5.1 cm cyst arising from the upper pole of the left kidney which is not well seen on this study although was present on the prior study and has increased in size in previously measured 5.4 x 4.9 x 3.8 cm. There is also a cyst arising from the inferior pole of the left kidney measuring 2.1 x 1.7 x 1.7 cm. This has also increased slightly in size from the prior study and previously measured 1.6 x 1.5 x 1.4 cm per There is limited visualization of the bladder. No bladder wall thickening or mass is seen. There are bilateral ureteral jets present within the urinary bladder. The prostate gland was not well visualized. The bladder volume was 252 mL. The patient was unable to void at the time of the exam. IMPRESSION: LEFT RENAL CYSTS. THE LARGER CYST IS NOT WELL-DEFINED ON THIS STUDY ALTHOUGH WAS PRESENT ON THE PRIOR EXAM NOTED ABOVE.
[2017-04-01] MEDS: Heparin VIAL(*) 5000 UNITS/ML VIAL (FIVE THOUSAND) SUBCUT SCH ×3 (05:06→20:50)
[2017-04-01] MEDS: Insulin LISPRO* 1 UNITS UNIT SUBCUT SCH ×7 (07:58→19:15)
[2017-04-01 08:59] LABS: Hematocrit 44 % (42-52); Hemoglobin 14.5 g/dl (14.0-18.0); Mean Corpuscular HGB Conc 33 g/dl (31-36); Mean Corpuscular Hemoglobin 31 pg (27-31); Mean Corpuscular Volume 95 fL (80-94); Mean Platelet Volume 9 um3 (7.4-10.4); Red Blood Count 4.67 10^6/ul (4.0-5.4); Red Cell Distribution Width 14 % (10.5-15); White Blood Count 11.9 10^3/ul (3.5-10.8)
--- NOTE | 2017-04-01 09:04 | PN ---
Subjective - Subjective Reason for Note: Progress Note History: He has had no chest pain, dyspnea or palpitations. He is wearing compression stockings. He has had the first portion of his NM stress test - the second portion will be today. Active Problems: Active Problems Acute dyspnea (Acute) R06.00 Diastolic CHF (Acute) I50.30 Hematuria (Acute) R31.9 Troponin level elevated (Acute) R79.89 Ventricular extrasystoles (Acute) I49.3 Aortic stenosis (Chronic) I35.0 Atrial septal defect (Chronic) Q21.1 Hypercholesteremia (Chronic) E78.0 Left ventricular hypertrophy (Chronic) I51.7 Mild mitral regurgitation (Chronic) I34.0 Obesities, morbid (Chronic) E66.01 Type 2 diabetes mellitus with neurological manifestations, uncontrolled (Chronic ) E11.49, E11.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, uncontrolled, with renal complications (Chronic) E11.29, E11.65 Current Medications: Current Medications Aspirin (Aspirin Ec Low Dose*) 81 mg PO DAILY [facility] Last Admin: 03/31/17 08:11 Dose: 81 mg Atorvastatin Calcium (Lipitor*) 20 mg PO QPM [facility] Last Admin: 03/31/17 17:28 Dose: 20 mg Furosemide (Lasix Tab*) 40 mg PO 0800,1700 [facility] Last Admin: 03/31/17 17:27 Dose: 40 mg Heparin Sodium (Porcine) (Heparin Vial(*)) 5,000 units SUBCUT Q8HR [facility] Last Admin: 04/01/17 05:06 Dose: 5,000 units Insulin Glargine (Lantus(*)) 50 units SUBCUT Q12H [facility] Last Admin: 03/31/17 20:58 Dose: 50 units Insulin Human Lispro (Humalog*) 0 units SUBCUT [facility] PRN Reason: Protocol Last Admin: 04/01/17 07:58 Dose: Not Given Insulin Human Lispro (Humalog*) 0 units SUBCUT [facility] PRN Reason: Protocol Last Admin: 04/01/17 07:58 Dose: Not Given Metoprolol Succinate (Toprol Xl Tab*) 25 mg PO DAILY [facility] Last Admin: 03/31/17 10:24 Dose: 25 mg Ramipril (Altace Cap*) 5 mg PO DAILY [facility] Last Admin: 03/31/17 10:24 Dose: 5 mg Home Medications: Home Medications Medication Instructions Recorded Confirmed Type Insulin ISOPH/REG 70/30 (*) 60 unit SUBCUT QAM 02/24/15 03/30/17 History [HumulIN 70/30 (*)] Ramipril CAP* [Altace CAP*] 5 mg PO DAILY 02/24/15 03/30/17 History Liraglutide [Victoza] 1.8 ml SUBCUT DAILY 06/16/15 03/30/17 History Insulin ISOPH/REG 70/30 (*) 55 units SUBCUT BEDTIME 06/28/15 03/30/17 History [HumuLIN 70/30 (*)] Aspirin EC Low Dose* [Ecotrin EC 81 mg PO DAILY 02/07/16 03/30/17 History Low Dose 81 MG*] Simvastatin [Zocor 40 MG (NF)] 40 mg PO QPM 02/07/16 03/30/17 History metFORMIN* [Glucophage 500 MG TAB 500 mg PO BID 03/30/17 03/30/17 History *] Allergies: Allergies Allergy/AdvReac Type Severity Reaction Status Date / Time No Known Allergies Allergy Verified 07/28/16 16:03 Objective - Vital Signs Vital Signs: Vital Signs 03/31/17 03/31/17 03/31/17 11:28 15:29 19:46 Temperature 98.5 F 98.8 F 97.9 F Pulse Rate 95 96 50 Respiratory 24 20 24 Rate Blood Pressure 124/78 123/77 126/47 (mmHg) O2 Sat by Pulse 97 96 97 Oximetry 03/31/17 04/01/17 04/01/17 20:00 00:21 00:33 Temperature 97.9 F Pulse Rate 48 96 Respiratory 18 20 Rate Blood Pressure 116/54 (mmHg) O2 Sat by Pulse 97 Oximetry 04/01/17 04/01/17 03:43 07:32 Temperature 98.7 F 97.8 F Pulse Rate 48 47 Respiratory 20 20 Rate Blood Pressure 125/55 114/48 (mmHg) O2 Sat by Pulse 96 99 Oximetry - Intake and Output Intake and Output: Intake & Output 03/29/17 03/30/17 03/31/17 04/01/17 11:59 11:59 11:59 11:59 Intake Total 202 740 Output Total 7016 6190 Balance -873 -530 Weight 277 lb 3.2 oz 263 lb 11.2 oz Intake: IV Fluids 2 Oral 200 740 Output: Urine 1075 1270 Other: Estimated Void Small # Bowel Movements 0 0 # Voids 2 ADLs: Meal Record Start: 03/30/17 16: 21 Freq: DAILY@0900,1400,1800 Status: Active Document 03/31/17 18:00 [id number] (Rec: 03/31/17 19:04 [id number]) Intake and Output Start: 03/30/17 16: 21 Freq: DAILY@0600,1400,2200 Status: Active Document 03/30/17 19:09 [id number] (Rec: 03/30/17 19:09 [id number] TELE-C10) Document 03/31/17 05:56 [id number] (Rec: 03/31/17 05:56 [id number] TELE-C34) Document 03/31/17 12:21 [id number] (Rec: 03/31/17 12:21 [id number] TELE-C01) Document 03/31/17 14:00 [id number] (Rec: 03/31/17 15:30 [id number] TELE-C05) Document 03/31/17 22:00 [id number] (Rec: 03/31/17 22:37 [id number] TELE-C01) Document 04/01/17 05:59 [id number] (Rec: 04/01/17 06:00 [id number] TELE-C34) - Physical Exam General Physical Exam Comment: sitting in a chair. He is warm and well perfused - no acute distress General: No Cyanosis, No Anemia, No Jaundice, No Clubbing Lungs and Chest: Yes: Chest Expansion Full, Chest Expansion Symetrica, Percussion Note Resonant, Vessicular Breath Sounds. No: Crackles, Wheezes Heart Rate and Rhythm: Regular Additional Cardiovascular: Yes: Normal Heart Sounds, Heart Murmur, Pedal Edema. No: Carotid Bruits Abdominal Exam: Yes: Soft. No: Distention, Abdominal Tenderness Results - Results Lab Results: Laboratory Results - last 24 hr 03/31/17 03/31/17 03/31/17 11:31 17:07 19:24 POC Glucose (mg/dL) 393 H 200 H 155 H 04/01/17 07:42 POC Glucose (mg/dL) 133 H Radiology Results: Patient Name: ANJELICA WALTER Medical Record#: [id number] Ordering Physician: Keyon Durand MD Acct.#: [id number] : 1940 Age: 76 Sex: M Location: [address] [place] [address] MEDICAL/TELEMETRY Exam Date: 03/31/171626 ADM Status: ADM IN Order Information: CTA CHEST Accession Number: [id number] CPT: 35987 INDICATION: Shortness of breath, elevated d-dimer. COMPARISON: Comparison is made with a prior chest x-ray study from March. TECHNIQUE: A CT angiogram of the chest was performed with intravenous following intravenous injection of 96 ml of Visipaque 320 nonionic contrast. Contiguous axial sections were obtained from the lung apices through the lung bases. Images were reconstructed in the coronal and sagittal planes. FINDINGS: There is motion artifact throughout the study limiting the exam. No intraluminal filling defect or pulmonary embolism is seen although the study is nondiagnostic for pulmonary emboli. The heart appears mildly prominent. No pericardial effusion is present. The thoracic aorta is normal in caliber and demonstrates homogeneous contrast opacification. There is a mildly prominent lymph node in the subcarinal region measuring 1.2 cm in size and a slightly prominent lymph node in the right paratracheal region. No enlarged hilar lymph nodes are appreciated. There is diffuse prominence of the interstitial markings scattered small groundglass infiltrates and small bilateral pleural effusions suggestive of congestive heart failure. No significant focal osseous abnormality is seen. The results of this exam were discussed with the referring clinician. IMPRESSION: 1. LIMITED NONDIAGNOSTIC STUDY FOR PULMONARY EMBOLI. 2. FINDINGS MOST CONSISTENT WITH CONGESTIVE HEART FAILURE. 3. MILDLY ENLARGED MEDIASTINAL LYMPH NODES. <Electronically signed by Nicolas Cottrell MD in OV> 03/31/171911 Dictated By: Nicolas Cottrell MD Dictated Date/Time: 03/31/171911 Transcribed Date/Time: 03/31/171899 Copy to: CC:Roque Arevalo MD; Chuckie Robin MD; Keyon Durand MD Imaging - [facility] Imaging [facility] Urgent [facility] [address] 1 of Patient Name: ANJELICA WALTER Medical Record#: [id number] Ordering Physician: Roque Arevalo MD Acct.#: [id number] : 1940 Age: 76 Sex: M Location: [address] [place] [address] MEDICAL/TELEMETRY Exam Date: 03/31/1754 ADM Status: ADM IN Order Information: US RENAL AND BLADDER Accession Number: [id number] CPT: 52020 INDICATION: Hematuria. COMPARISON: Comparison is made with a prior renal ultrasound from December 27, 2013. TECHNIQUE: Multiple real-time images of the kidneys and urinary bladder were obtained. FINDINGS: The kidneys are normal in size shape and echogenicity. The right kidney measured 10.4 x 4.1 x 5.4 cm and the left kidney measured 11.4 x 5.0 x 5.0 cm. No hydronephrosis is seen. There is a 6.7 x 6.3 x 5.1 cm cyst arising from the upper pole of the left kidney which is not well seen on this study although was present on the prior study and has increased in size in previously measured 5.4 x 4.9 x 3.8 cm. There is also a cyst arising from the inferior pole of the left kidney measuring 2.1 x 1.7 x 1.7 cm. This has also increased slightly in size from the prior study and previously measured 1.6 x 1.5 x 1.4 cm per There is limited visualization of the bladder. No bladder wall thickening or mass is seen. There are bilateral ureteral jets present within the urinary bladder. The prostate gland was not well visualized. The bladder volume was 252 mL. The patient was unable to void at the time of the exam. IMPRESSION: LEFT RENAL CYSTS. THE LARGER CYST IS NOT WELL-DEFINED ON THIS STUDY ALTHOUGH WAS PRESENT ON THE PRIOR EXAM NOTED ABOVE. <Electronically signed by Nicolas Cottrell MD in OV> 03/31/171956 Dictated By: Nicolas Cottrell MD Dictated Date/Time: 03/31/171956 Transcribed Date/Time: 03/31/171949 Copy to: CC:Roque Arevalo MD; Chuckie Robin MD Imaging - [facility] Imaging - [facility] Imaging - [facility] 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 He has had some ventricula bigeminy on telemetry Diastolic CHF (Acute) He has had a slight negative water balance, but not a notable diuresis. According to the RN it is likely not all the urine was recorded! I will await his labs before adjusting his diuretic. I want to ensure he is stable. After his stress test, if he has no evidence of ischemia, I will check him walking off oximetry. I discussed his case with Dr. Durand - he wants to rule out ischemia Hematuria (Acute) No further hematuria. He has a renal cyst, but no other pathology. I will work this up as an outpatient (rule out urethelial tumor) Troponin level elevated (Acute) We are awaiting the stress test result Ventricular extrasystoles (Acute) ongoing on telemetry Aortic stenosis (Chronic) Dr. 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
[2017-04-01 09:33] LABS: BUN/Creatinine Ratio 20.3 (8-20); Blood Urea Nitrogen 29 mg/dL (6-24); C Reactive Protein 60.64 mg/L (< 5.00); CO2 Carbon Dioxide 20 mmol/L (22-32); Calcium 9.1 mg/dL (8.6-10.3); Chloride 102 mmol/L (101-111); EGFR African American 61.5 (>60); EGFR Non-African American 47.8 (>60); Glucose 125 mg/dL (70-100); Sodium 132 mmol/L (133-145)
[2017-04-01 09:37] LABS: Anion Gap 10 mmol/L (2-11)
--- NOTE | 2017-04-01 09:40 | ECHO ---
Patient: ANJELICA WALTER [facility] Rec#: [id number] : 1940 Date: 03/31/2017 Age: 76y Height: 187.96 cm / 74.0 in Weight: 124.28 kg / 273.9 lbs Sex: M BSA: 2.48 Room#: 446 Admit Date#: 03/30/2017 Type: Inpatient Referring: RUDOLPH BONILLA MD Reading: Keyon Durand MD Machine Bunch Maker: Sophia Villa,EJCS,RDMS CC: Rajni Inman MD CC: Roque Arevalo MD Transthoracic Echocardiogram Indication: CHF BP: 131/59 HR: 58 Rhythm: NSR with PVCs Findings History: AOV stenosis, rheumatic MV, HLD, DM, cardiomegaly Technical Comments: The study is technically limited due to poor acoustic windows. Completed 1520 Left Ventricle: The left ventricular chamber size is normal. Mild concentric left ventricular hypertrophy is observed. Left ventricular systolic function is at the lower limits of normal. The estimated ejection fraction is 50-55%. There is septal flattening of the interventricular septum consistent with right ventricular volume or pressure overload. Abnormal left ventricular diastolic filling is observed, consistent with impaired relaxation. Left Atrium: The left atrium is mildly dilated. Right Ventricle: The right ventricular chamber size and systolic function are within normal limits. Right Atrium: The right atrial cavity size is normal. Aortic Valve: The aortic valve leaflets are moderately thickened. Systolic excursion of the aortic valve cusps is reduced. There is aortic annular calcification. There is no evidence of aortic regurgitation. There is mild to moderate aortic stenosis. The mean gradient of the aortic valve is 18 mmHg. The aortic valve area, by peak velocities, is calculated at 1.2 cm2. Mitral Valve: There is mitral annular calcification. The mitral valve leaflets are mildly thickened. There is a trace of mitral regurgitation. There is mild mitral stenosis. Tricuspid Valve: The tricuspid valve leaflets are normal. There is trace tricuspid regurgitation. Unable to estimate the right ventricular systolic pressure. Pulmonic Valve: There is no evidence of pulmonic valve thickening. There is a trace pulmonic regurgitation. Pericardium: There is no significant pericardial effusion. Aorta: The aortic root appears normal. The aortic arch is not well visualized. Pulmonary Artery: The main pulmonary artery is not well visualized. Venous: The inferior vena cava is not visualized. Contrast: Definity was used to optimize study. A total of 3 ml was used Summary: There are no significant changes when compared to the previous study done on 01/01/16 Conclusions Mild concentric left ventricular hypertrophy is observed. Left ventricular systolic function is at the lower limits of normal. The estimated ejection fraction is 50-55%. There is septal flattening of the interventricular septum consistent with right ventricular volume or pressure overload. Systolic excursion of the aortic valve cusps is reduced. There is mild/moderate aortic stenosis. The mean gradient of the aortic valve is 18 mmHg. There is a trace of mitral regurgitation. There is trace tricuspid regurgitation. Unable to estimate the right ventricular systolic pressure. There is no significant pericardial effusion. There are no significant changes when compared to the previous study done on 01/01/16 Measurements Name Value Normal Range RVIDd (AP) 2D 2.6 cm (0.9 - 2.6) RAd ISD 4CH 4.8 cm (3.4 - 4.9) RA (A4C)W 3.6 cm (2.9 - 4.6) IVSd (2D) 1.2 cm (0.6 - 1) LVPWd (2D) 1.2 cm (0.6 - 1) LVIDd (2D) 4.9 cm (3.6 - 5.4) LVIDs (2D) 3.8 cm - LV FS (2D) 22 % (25 - 45) Aortic Annulus 1.9 cm (1.4 - 2.6) Ao root diameter (2D) 3.1 cm (2.1 - 3.5) Ascending Ao 3 cm (2.1 - 3.4) LA dimension (AP) 2D 3.7 cm (2.3 - 3.8) LAd ISD 4CH 6.2 cm (2.9 - 5.3) LA ISD 4CH W 4.3 cm (2.5 - 4.5) Name Value Normal Range LA ESV SP 4CH (A/L) 64.17 ml - LA ESV SP 2CH (A/L) 72.16 ml - LA ESV BP (A/L) 68.8 ml - LA ESV BP (A/L) index 28 ml/m2 - LA ESV SP 4CH (MOD) 60.52 ml - LA ESV SP 2CH (MOD) 68.68 ml - Name Value Normal Range MV E-wave Vmax 1.1 m/sec - MV deceleration time 122 msec - MV A-wave Vmax 1.4 m/sec - MV E:A ratio 0.8 ratio - LV septal e' Vmax 0.04 m/sec - LV lateral e' Vmax 0.06 m/sec - LV E:e' septal ratio 28 ratio - LV E:e' lateral ratio 18.3 ratio - Name Value Normal Range AV Vmax 2.7 m/sec - AV VTI 53.2 cm - AV peak gradient 29 mmHg - AV mean gradient 18 mmHg - LVOT diameter 2 cm - LVOT Vmax 1 m/sec - LVOT VTI 21.1 cm - LVOT peak gradient 4 mmHg - LVOT mean gradient 2.1 mmHg - DOI (VTI) 0.4 ratio - KEYSHA (continuity Vmax) 1.2 cm2 - KEYSHA (continuity VTI) 1.2 cm2 - Name Value Normal Range MV Vmax 1.4 m/sec - MV VTI 25 cm - MV peak gradient 8 mmHg - MV mean gradient 3.8 mmHg - MV PHT 30 msec - MVA (PHT) 7.3 cm2 - MVA (continuity VTI) 2.6 cm2 - Name Value Normal Range RAP 8 mmHg - Name Value Normal Range PV Vmax 0.8 m/sec - PV peak gradient 2.6 mmHg -
[2017-04-01] MEDS ORDERED: Regadenoson* 0.4 MG/5 ML SYRINGE ONE (13:03)
--- NOTE | 2017-04-01 14:21 | RAD ---
Edited for charges. INDICATION: Chest pain COMPARISON: January 03, 2016 TECHNIQUE: A single day SPECT protocol was utilized. Rest images were acquired following the intravenous injection of 10.6 millicuries of technetium 99m tetrofosmin. Pharmacologic stress images were acquired following the intravenous administration of 25.9 millicuries of technetium 99m tetrofosmin. This examination is limited by lack of CT attenuation which could not be performed due to patient size. FINDINGS: There is decreased activity in the inferior wall near the base the heart seen on both stress and rest images. This may represent diaphragmatic attenuation. There is a short septum. There is no definitive ischemia. The cardiac chamber size is normal. There are no wall motion abnormalities. The ejection fraction is depressed measuring 39 percent during stress. IMPRESSION: NO ISCHEMIC DEFECT IS SEEN. DECREASED ACTIVITY IN THE INFERIOR WALL MAY BE RELATED TO ATTENUATION ARTIFACT BUT MUST BE CORRELATED WITH THE CLINICAL FINDINGS. DEPRESSED EJECTION FRACTION. ASSESSMENT: LOW-RISK Based on imaging criteria from ACC/AHA 2002 Guideline Update for the Management of Patients With Chronic Stable Angina Table 23. Noninvasive Risk Stratification. MTDD
[2017-04-01] MEDS: Furosemide TAB* 40 MG PO SCH ×2 (14:25→17:12)
[2017-04-01] MEDS: Aspirin EC Low Dose* 81 MG TAB.EC PO SCH (14:33)
[2017-04-01] MEDS: Metoprolol Succinate XL TAB* 25 MG PO SCH (14:33)
[2017-04-01] MEDS: Insulin GLARGINE(*) 1 UNITS UNIT SUBCUT SCH ×2 (14:35→20:50)
[2017-04-01] MEDS: Ramipril CAP* 5 MG PO SCH (14:35)
--- NOTE | 2017-04-01 16:18 | CONS ---
CC: Dr. Arevalo; Dr. Rajni Inman* CARDIOLOGY CONSULTATION: DATE OF CONSULT: 03/31/17 REASON FOR CONSULT: Congestive heart failure. HISTORY OF PRESENT ILLNESS: The patient is a 76-year-old gentleman with a history of diabetes, aortic stenosis, diastolic dysfunction, hyperlipidemia, who was admitted to the hospital with shortness of breath. The patient states that 2 days prior to his admission to the emergency room, the patient had been experiencing increased shortness of breath. He says he got to the point where he felt tremendously short of breath just walking around his house. He denied any angina. He denied any palpitations. He denied any lightheadedness, dizziness, or syncope. The patient denies any significant change in his diet. No change in his medications. On arrival to the emergency room, the patient was in congestive heart failure. He was given IV Lasix with a significant diuresis. The patient was admitted to the hospital for further observation. The patient's initial BNP level was 501. His troponin level was 0.07 and 0.06. D-dimer was elevated at 297. His EKG showed normal sinus rhythm with frequent PVCs. The patient was admitted to the hospital. He had a significant diuresis overnight and I was asked to see him in consultation. PAST MEDICAL HISTORY: [id number] aortic stenosis, diastolic dysfunction, diabetes, hypertension, and hyperlipidemia. 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 ALLERGIES: No known drug allergies. FAMILY HISTORY: His mother had diabetes. Father has diabetes. 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 He denies tobacco or alcohol use. He is . REVIEW OF SYSTEMS: A 12-point review of systems is unremarkable except for mentioned above. PHYSICAL EXAM: Height is 6 feet 2 inches, weight 263 pounds, his weight in our office this past February was essentially the same. Heart rate is 92, blood pressure 113/67, temperature 98.2, respiratory rate is 20. Sclerae anicteric. Oropharynx is pink without erythema. Carotids are 2+ without bruits. JVD is normal. Thyroid is normal. Cardiac Exam: S1, S2 with a 1/6 systolic ejection murmur heard best at the left upper sternal border. PMI is normal. Lungs are clear to auscultation bilaterally. There is no dullness to percussion. There are no rales on exam. Abdomen is obese, soft, nontender, and nondistended with normoactive bowel sounds. Extremities show 2+ nonpitting edema. He has diminished pulses in his dorsalis pedis. His popliteal pulses are normal. The patient is awake, alert, and oriented. He moves all 4 extremities equally. DIAGNOSTIC STUDIES/LAB DATA: CBC within normal limits. Chemistries: Sodium 132, potassium 4.5, BUN 29, creatinine 1.4, CRP is 60. AST and ALT are within normal limits. Troponin levels as described above. The patient did have a stress test a year ago, which showed no clear areas of ischemia. A year ago, the patient had an echocardiogram which showed [id number] aortic stenosis. No other significant valvular disease. His ejection fraction was 55%. IMPRESSION AND PLAN: This 76-year-old gentleman was admitted to the emergency room with congestive heart failure likely secondary to diastolic dysfunction. The patient did have an echocardiogram here at [facility], which demonstrated normal LV systolic function with ejection fraction of 55%. Mild-to - moderate aortic stenosis with a mean gradient of 18 mmHg, trace MR, trace TR, unable to estimate PA systolic pressures. Again, the patient likely has diastolic dysfunction of unclear origin. The patient does not admit to any significant change in his diet; however, he does say he does not follow a low-salt diet. It is my recommendation that the patient undergo a chemical nuclear stress test to see if ischemia has played a role in his presentation. Again, his stress test a year ago was unremarkable. The patient does have an elevated D-dimer and shortness of breath. It is my recommendation that the patient undergo a CT scan of his chest to rule out pulmonary embolism as a cause for his symptoms. Further recommendations pending results of these testing and his response to medical therapy. [id number]/[facility] #: [id number] [facility]INE HOSPITALIsauro
[2017-04-01] MEDS: Atorvastatin* 20 MG TAB PO SCH (19:14)
[2017-04-02] MEDS: Heparin VIAL(*) 5000 UNITS/ML VIAL (FIVE THOUSAND) SUBCUT SCH (05:21)
[2017-04-02 05:25] LABS: BUN/Creatinine Ratio 23.6 (8-20); Calcium 8.9 mg/dL (8.6-10.3); EGFR Non-African American 47.4 (>60)
[2017-04-02 07:43] VITALS: BP 121/43
--- NOTE | 2017-04-02 08:54 | PN ---
Subjective - Subjective Reason for Note: Discharge Note History: Discharge summary He feels better today. He is no longer wearing O2 cannula and he is not dyspneic on walking. He has no chest pain or palpitations. He denies a cough. He tolerated the stress test yesterday well. Active Problems: Active Problems Acute dyspnea (Acute) R06.00 Diastolic CHF (Acute) I50.30 Hematuria (Acute) R31.9 Troponin level elevated (Acute) R79.89 Ventricular extrasystoles (Acute) I49.3 Aortic stenosis (Chronic) I35.0 Atrial septal defect (Chronic) Q21.1 Hypercholesteremia (Chronic) E78.0 Left ventricular hypertrophy (Chronic) I51.7 Mild mitral regurgitation (Chronic) I34.0 Obesities, morbid (Chronic) E66.01 Type 2 diabetes mellitus with neurological manifestations, uncontrolled (Chronic ) E11.49, E11.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, uncontrolled, with renal complications (Chronic) E11.29, E11.65 Current Medications: Current Medications Aspirin (Aspirin Ec Low Dose*) 81 mg PO DAILY [facility] Last Admin: 04/01/17 14:33 Dose: 81 mg Atorvastatin Calcium (Lipitor*) 20 mg PO QPM [facility] Last Admin: 04/01/17 19:14 Dose: 20 mg Furosemide (Lasix Tab*) 40 mg PO 0800,1700 [facility] Last Admin: 04/01/17 17:12 Dose: 40 mg Heparin Sodium (Porcine) (Heparin Vial(*)) 5,000 units SUBCUT Q8HR [facility] Last Admin: 04/02/17 05:21 Dose: 5,000 units Insulin Glargine (Lantus(*)) 50 units SUBCUT Q12H [facility] Last Admin: 04/01/17 20:50 Dose: 50 units Insulin Human Lispro (Humalog*) 0 units SUBCUT AC [facility] PRN Reason: Protocol Last Admin: 04/01/17 19:15 Dose: Not Given Insulin Human Lispro (Humalog*) [address] [facility] PRN Reason: Protocol Last Admin: 04/01/17 19:12 Dose: 20 units Metoprolol Succinate (Toprol Xl Tab*) 25 mg PO DAILY [facility] Last Admin: 04/01/17 14:33 Dose: 25 mg Ramipril (Altace Cap*) 5 mg PO DAILY [facility] Last Admin: 04/01/17 14:35 Dose: 5 mg Home Medications: Home Medications Medication Instructions Recorded Confirmed Type Insulin ISOPH/REG 70/30 (*) 60 unit SUBCUT QAM 02/24/15 03/30/17 History [HumulIN 70/30 (*)] Ramipril CAP* [Altace CAP*] 5 mg PO DAILY 02/24/15 03/30/17 History Liraglutide [Victoza] 1.8 ml SUBCUT DAILY 06/16/15 03/30/17 History Insulin ISOPH/REG 70/30 (*) 55 units SUBCUT BEDTIME 06/28/15 03/30/17 History [HumuLIN 70/30 (*)] Aspirin EC Low Dose* [Ecotrin EC 81 mg PO DAILY 02/07/16 03/30/17 History Low Dose 81 MG*] Simvastatin [Zocor 40 MG (NF)] 40 mg PO QPM 02/07/16 03/30/17 History metFORMIN* [Glucophage 500 MG TAB 500 mg PO BID 03/30/17 03/30/17 History *] Allergies: Allergies Allergy/AdvReac Type Severity Reaction Status Date / Time No Known Allergies Allergy Verified 07/28/16 16:03 Objective - Vital Signs Vital Signs: Vital Signs 04/01/17 04/01/17 04/01/17 11:22 13:50 16:08 Temperature 98.2 F 98.1 F 98.3 F Pulse Rate 92 90 48 Respiratory 20 20 24 Rate Blood Pressure 113/67 113/40 111/44 (mmHg) O2 Sat by Pulse 98 94 92 Oximetry 04/01/17 04/01/17 04/01/17 19:43 20:00 23:18 Temperature 98.4 F 98.1 F Pulse Rate 48 45 Respiratory 16 20 20 Rate Blood Pressure 129/49 122/51 (mmHg) O2 Sat by Pulse 92 94 Oximetry 04/02/17 04/02/17 04/02/17 04:01 04:23 06:45 Temperature 98.1 F Pulse Rate 58 Respiratory 20 18 Rate Blood Pressure 98/68 109/51 (mmHg) O2 Sat by Pulse 96 Oximetry 04/02/17 04/02/17 07:30 07:31 Temperature 98.0 F Pulse Rate 48 92 Respiratory 14 Rate Blood Pressure 121/43 (mmHg) O2 Sat by Pulse 95 Oximetry - Intake and Output Intake and Output: Intake & Output 03/30/17 03/31/17 04/01/17 04/02/17 11:59 11:59 11:59 11:59 Intake Total 202 740 300 Output Total 1075 1270 825 Balance -873 -530 -525 Weight 277 lb 3.2 oz 263 lb 11.2 oz 272 lb 8 oz Intake: IV Fluids 2 100 Oral 200 740 200 Output: Urine 1075 1270 825 Other: Estimated Void Small # Bowel Movements 0 0 0 # Voids 2 2 ADLs: Meal Record Start: 03/30/17 16: 21 Freq: DAILY@0900,1400,1800 Status: Active Document 03/31/17 18:00 [id number] (Rec: 03/31/17 19:04 [id number] TELE-C08) Document 04/01/17 09:00 [id number] (Rec: 04/01/17 13:23 [id number] MED-L06) Document 04/01/17 14:00 [id number] (Rec: 04/01/17 14:56 [id number] TELE-C05) Document 04/01/17 19:18 [id number] (Rec: 04/01/17 19:19 [id number] TELE-L04) Intake and Output Start: 03/30/17 16: 21 Freq: DAILY@0600,1400,2200 Status: Active Document 03/30/17 19:09 [id number] (Rec: 03/30/17 19:09 [id number] TELE-C10) Document 03/31/17 05:56 [id number] (Rec: 03/31/17 05:56 [id number] TELE-C34) Document 03/31/17 12:21 [id number] (Rec: 03/31/17 12:21 [id number] TELE-C01) Document 03/31/17 14:00 [id number] (Rec: 03/31/17 15:30 [id number] TELE-C05) Document 03/31/17 22:00 [id number] (Rec: 03/31/17 22:37 [id number] TELE-C01) Document 04/01/17 05:59 [id number] (Rec: 04/01/17 06:00 [id number] TELE-C34) Document 04/01/17 14:00 [id number] (Rec: 04/01/17 14:56 [id number] TELE-C05) Document 04/01/17 22:00 [id number] (Rec: 04/01/17 22:26 [id number] TELE-C01) Document 04/02/17 06:00 [id number] (Rec: 04/02/17 06:24 [id number] TELE-C34) - Physical Exam General: No Cyanosis, No Anemia, No Jaundice, No Clubbing Lungs and Chest: Yes: Chest Expansion Full, Chest Expansion Symetrica, Percussion Note Resonant, Vessicular Breath Sounds. No: Crackles, Wheezes, Respiratory Distress, Use of Accessory Muscles Heart Rate and Rhythm: Regular Additional Cardiovascular: Yes: Normal Heart Sounds, Heart Murmur - 2/6 FAVIOLA aortic ar3ea, Pedal Edema. No: Carotid Bruits Abdominal Exam: Yes: Soft, Bowel Sounds Present. No: Distention, Abdominal Tenderness Results - Results Lab Results: Laboratory Results - last 24 hr 04/01/17 04/01/17 04/01/17 08:40 08:40 10:39 WBC 11.9 H RBC 4.67 Hgb 14.5 Hct 44 MCV 95 H MCH 31 MCHC 33 RDW 14 Plt Count 215 MPV 9 Neut % (Auto) 67.2 Lymph % (Auto) 20.9 L Clinch % (Auto) 8.8 Eos % (Auto) 2.9 Baso % (Auto) 0.2 Absolute Neuts (auto) 8.0 H Absolute Lymphs (auto) 2.5 Absolute Monos (auto) 1.0 H Absolute Eos (auto) 0.3 Absolute Basos (auto) 0 Absolute Nucleated RBC 0 Nucleated RBC % 0 Sodium 132 L Potassium TNP 4.5 Chloride 102 Carbon Dioxide 20 L Anion Gap 10 BUN 29 H Creatinine 1.43 H Est GFR ( Amer) 61.5 Est GFR (Non-Af Amer) 47.8 BUN/Creatinine Ratio 20.3 H Glucose 125 H POC Glucose (mg/dL) Calcium 9.1 C-Reactive Protein 60.64 H 04/01/17 04/01/17 04/01/17 11:15 18:15 20:38 WBC RBC Hgb Hct MCV MCH MCHC RDW Plt Count MPV Neut % (Auto) Lymph % (Auto) Clinch % (Auto) Eos % (Auto) Baso % (Auto) Absolute Neuts (auto) Absolute Lymphs (auto) Absolute Monos (auto) Absolute Eos (auto) Absolute Basos (auto) Absolute Nucleated RBC Nucleated RBC % Sodium Potassium Chloride Carbon Dioxide Anion Gap BUN Creatinine Est GFR ( Amer) Est GFR (Non-Af Amer) BUN/Creatinine Ratio Glucose 368 H POC Glucose (mg/dL) 173 H 327 H Calcium C-Reactive Protein 04/02/17 04/02/17 04:41 08:18 WBC RBC Hgb Hct MCV MCH MCHC RDW Plt Count MPV Neut % (Auto) Lymph % (Auto) Clinch % (Auto) Eos % (Auto) Baso % (Auto) Absolute Neuts (auto) Absolute Lymphs (auto) Absolute Monos (auto) Absolute Eos (auto) Absolute Basos (auto) Absolute Nucleated RBC Nucleated RBC % Sodium 134 Potassium 4.0 Chloride 99 L Carbon Dioxide 27 Anion Gap 8 BUN 34 H Creatinine 1.44 H Est GFR ( Amer) 61.0 Est GFR (Non-Af Amer) 47.4 BUN/Creatinine Ratio 23.6 H Glucose 119 H 279 H POC Glucose (mg/dL) Calcium 8.9 C-Reactive Protein Radiology Results: Patient Name: ANJELICA ZAMORANO Medical Record#: [id number] Ordering Physician: Keyon Durand MD Acct.#: [id number] : 1940 Age: 76 Sex: M Location: [address] [place] [address]/TELEMETRY Exam Date: 04/01/17723 ADM Status: ADM IN Order Information: NUCLEAR CARDIAC STRESS TEST Accession Number: [id number] CPT: 56586 INDICATION: Chest pain COMPARISON: January 03, 2016 TECHNIQUE: A single day SPECT protocol was utilized. Rest images were acquired following the intravenous injection of 10.6 millicuries of technetium 99m tetrofosmin. Pharmacologic stress images were acquired following the intravenous administration of 25.9 millicuries of technetium 99m tetrofosmin. This examination is limited by lack of CT attenuation which could not be performed due to patient size. FINDINGS: There is decreased activity in the inferior wall near the base the heart seen on both stress and rest images. This may represent diaphragmatic attenuation. There is a short septum. There is no definitive ischemia. The cardiac chamber size is normal. There are no wall motion abnormalities. The ejection fraction is depressed measuring 39 percent during stress. IMPRESSION: NO ISCHEMIC DEFECT IS SEEN. DECREASED ACTIVITY IN THE INFERIOR WALL MAY BE RELATED TO ATTENUATION ARTIFACT BUT MUST BE CORRELATED WITH THE CLINICAL FINDINGS. DEPRESSED EJECTION FRACTION. ASSESSMENT: LOW-RISK Based on imaging criteria from ACC/AHA 2002 Guideline Update for the Management of Patients With Chronic Stable Angina Table 23. Noninvasive Risk Stratification. <Electronically signed by Seth Aguilera MD in OV> 04/01/17 1418 Dictated By: Seth Aguilera MD Dictated Date/Time: 04/01/17 1418 Transcribed Date/Time: 04/01/17 1357 Copy to: CC:Roque Arevalo MD; Chuckie Robin MD; Keyon Durand MD Imaging - [facility] Imaging - [facility] [address] [place] [address] ph [phone]) ph ([phone]) ph ([phone]) 1 of 1 Assessment - Problem List Assessment: Patient Problems Acute dyspnea (Acute) Diastolic CHF (Acute) Hematuria (Acute) Troponin level elevated (Acute) Ventricular extrasystoles (Acute) Aortic stenosis (Chronic) Atrial septal defect (Chronic) Hypercholesteremia (Chronic) Left ventricular hypertrophy (Chronic) Mild mitral regurgitation (Chronic) Obesities, morbid (Chronic) Type 2 diabetes mellitus with neurological manifestations, 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 We have ruled out an ischemic event. Telemetry has revealed bigeminy at times, but no dysrhythmia that might explain his presentation. It is unlikely he had a PE - though not absolutely ruled out. He feels ready for discharge home. I have started him on diuretic therapy. Hematuria (Acute) This resolved - I will evaluate this as an outpatient Troponin level elevated (Acute) He has no evidence of ischemic heart disease Ventricular extrasystoles (Acute) ongoing Aortic stenosis (Chronic) mild Atrial septal defect (Chronic) mild Hypercholesteremia (Chronic) continue current Rx Left ventricular hypertrophy (Chronic) Likely contributes to the diastolic dysfunction Mild mitral regurgitation (Chronic) ongoing Obesities, morbid (Chronic) Type 2 diabetes mellitus with neurological manifestations, uncontrolled (Chronic )Type 2 diabetes mellitus, uncontrolled, with renal complications (Chronic) Hyperglycemic as he had post prandial FS. I think his hyperglycemia will resolve once he is back on his usual insulin regimen. I discussed the evaluation and conclusions with the patient and his . I provided CHF education - particularly daily weight and avoid salt in diet. He will follow up with me in my office in 2 days.
[2017-04-02] MEDS ORDERED: Furosemide TAB* 40 MG PO SCH (09:00)
[2017-04-02] MEDS: Aspirin EC Low Dose* 81 MG TAB.EC PO SCH (09:33)
[2017-04-02] MEDS: Metoprolol Succinate XL TAB* 25 MG PO SCH (09:33)
[2017-04-02] MEDS: Insulin LISPRO* 1 UNITS UNIT SUBCUT SCH ×2 (09:33→09:50)
[2017-04-02] MEDS: Ramipril CAP* 5 MG PO SCH (09:33)
[2017-04-02] MEDS: Insulin GLARGINE(*) 1 UNITS UNIT SUBCUT SCH (09:34)
[2017-04-02] MEDS: Furosemide TAB* 40 MG PO SCH (09:51)
== END 2017-04-02 10:25 | disposition home or self-care (01) | DRG 291 ==
LOC: ED 12:19 → MEDTELE 15:03
PROVIDERS: ADMIT Hospitalist; ATTEND Internal Medicine
DX: I13.0 Hypertensive heart and chronic kidney disease with heart failure and stage 1 through stage 4 chronic kidney disease, or unspecified chronic kidney disease (principal); I50.33 Acute on chronic diastolic (congestive) heart failure; E11.49 Type 2 diabetes mellitus with other diabetic neurological complication; E11.22 Type 2 diabetes mellitus with diabetic chronic kidney disease; Q21.1 Atrial septal defect; E66.01 Morbid (severe) obesity due to excess calories; E11.65 Type 2 diabetes mellitus with hyperglycemia; S81.809A Unspecified open wound, unspecified lower leg, initial encounter; X58.XXXA Exposure to other specified factors, initial encounter; M19.90 Unspecified osteoarthritis, unspecified site; E78.5 Hyperlipidemia, unspecified; Z89.422 Acquired absence of other left toe(s); Z83.3 Family history of diabetes mellitus; R31.9 Hematuria, unspecified; E78.00 Pure hypercholesterolemia, unspecified; M17.12 Unilateral primary osteoarthritis, left knee; Z98.42 Cataract extraction status, left eye; Z98.41 Cataract extraction status, right eye; Z82.49 Family history of ischemic heart disease and other diseases of the circulatory system; I49.3 Ventricular premature depolarization; N18.3 Chronic kidney disease, stage 3 (moderate); I08.3 Combined rheumatic disorders of mitral, aortic and tricuspid valves; Z68.35 Body mass index [BMI] 35.0-35.9, adult
CPT/HCPCS: 36415; 71020; 71275; 74000; 76770; 78452; 80048; 80053; 81003; 81015; 82550; 82553; 82947; 83605; 83880; 84484; 85025; 85379; 85610; 86140; 87040; 93005; 93017; 93306; 94640; 99213; A9270-GY; A9502; C8929; G0463; J1644; J1940; J2785; J7615; Q9967

== ENCOUNTER 2017-08-15 11:07 | Emergency (ER) | payer MEDICARE ==
[2017-08-15 11:25] VITALS: BP 105/36
--- NOTE | 2017-08-15 12:07 | UC ---
Shortness of Breath HPI - HPI Summary HPI Summary: ONSET OF SOB WITH EXERTION YESTERDAY. DENIES CP, NAUSEA, SWEATS, FEVER, URI SX. FEELS BETTER AT REST BUT STATES HE CAN NOT WALK EVEN 2 FEET WITHOUT BECOMING SOB. HERE WITH HIS . HAS A H/O DM, HTN, VALVULAR DISEASE, BIGEMINY ON EKG. [employer]ESP[employer] DR. COOPER. - History of Current Complaint Chief Complaint: UCRespiratory Stated Complaint: SOB Time Seen by Provider: 08/15/17 11:37 Hx Obtained From: Patient, Family/Fibreglass Laminator - Onset/Duration: Sudden Onset, Lasting Hours, Still Present Current Severity: Moderate Dyspnea At: Exertion Aggrevating Factors: Movement Alleviating Factors: Other - REST Associated Signs & Symptoms: Negative: Cough (Productive), Wheezing, Chest Pain w/Cough, Chest Pain Unrelated to Cough, Fever, Chills, Diaphoresis, Nasal Congestion, Dizzy - Allergy/Home Medications Allergies/Adverse Reactions: Allergies Allergy/AdvReac Type Severity Reaction Status Date / Time No Known Allergies Allergy Verified 08/15/17 11:25 PMH/Surg Hx/FS Hx/Imm Hx Endocrine History: Diabetes Cardiovascular History: Hypertension Other Respiratory History: VALVULAR DYSFUNCTION Other History Of: Negative For: HIV, Hepatitis B, Hepatitis C, Anticoagulant Therapy - Surgical History Surgical History: Yes Surgery Procedure, Year, and Place: 2008 LEFT GREAT TOE SURGERY [facility]. 01/2014 BILATERAL CATARACT [facility] - Family History Known Family History: Positive: Cardiac Disease, Hypertension, Diabetes - Social History Alcohol Use: None Substance Use Type: None Smoking Status (MU): Never Smoked Tobacco Have You Smoked in the Last Year: No - Immunization History Most Recent Influenza Vaccination: 2015 Most Recent Tetanus Shot: 2009 Most Recent Pneumonia Vaccination: Unsure Review of Systems Constitutional: Fatigue ENT: Negative Respiratory: Shortness Of Breath Cardiovascular: Negative Gastrointestinal: Negative Neurological: Negative All Other Systems Reviewed And Are Negative: Yes Physical Exam Triage Information Reviewed: Yes Appearance: Well-Appearing, No Pain Distress, Well-Nourished Vital Signs: Initial Vital Signs Temp 97.7 F 08/15/17 11:18 Pulse 94 08/15/17 11:18 Resp 30 08/15/17 11:18 BP 105/36 08/15/17 11:18 Pulse Ox 96 08/15/17 11:18 Vital Signs Reviewed: Yes Eyes: Positive: Conjunctiva Clear ENT: Positive: Hearing grossly normal Neck: Positive: Supple Respiratory: Positive: Lungs clear, No respiratory distress, No accessory muscle use Cardiovascular: Positive: Pulses Normal, Tachycardia, Murmur:Sys:Grade _?_/ - 2/6 SYSTOLIC Abdomen Description: Positive: Nontender, Soft Musculoskeletal: Positive: Edema @ - 1+ PITTING EDEMA BILATERAL LE Neurological: Positive: Alert Psychological: Positive: Normal Response To Family, Age Appropriate Behavior Skin: Positive: Other - VENOUS STASIS CHANGES LOWER EXTREMITITS Diagnostics - EKG Cardiac Rate: Tachycardia - 124BPM Ectopy: PVCs - BIGEEMINY Shortness of Breath Dx - Course Course Of Treatment: EKG UNCHANGED FROM 03/2017. TO [facility] ED BY AMBULANCE - Differential Dx/Diagnosis Differential Diagnosis/HQI/PQRI: Airway Obstruction, Asthma, CHF, Pneumothorax, Pulmonary Embolism, Pulmonary Edema Provider Diagnoses: SOB - Physician Notification/Consults Discussed Patient Care With: Carlos Park - TO [facility] ED BY AMBULANCE Time Discussed With Above Provider: 12:15 Instructed by Provider To: MD Will See In ED Discharge - Discharge Plan Condition: Stable Disposition: TRANS HIGHER LVL OF CARE FAC Referrals: Roque Arevalo MD [Primary Care Provider] -
== END 2017-08-15 12:11 | disposition short-term general hospital (02) ==
LOC: UCEAST 11:07
DX: R06.02 Shortness of breath (principal); R53.83 Other fatigue; R60.0 Localized edema; I87.8 Other specified disorders of veins; R00.0 Tachycardia, unspecified; E11.9 Type 2 diabetes mellitus without complications; I10 Essential (primary) hypertension; Z98.42 Cataract extraction status, left eye; Z98.41 Cataract extraction status, right eye
CPT/HCPCS: 93005; 99213; G0463

== ENCOUNTER 2017-08-15 12:26 | Observation (INO) | payer MEDICARE ==
[2017-08-15 13:11] LABS: ABS Basophils 0 10^3/ul (0-0.2); ABS Eosinophils 0.1 10^3/ul (0-0.6); ABS Lymphocytes 1.8 10^3/ul (1.0-4.8); ABS Monocytes 1.1 10^3/ul (0-0.8); ABS Nucleated RBC 0 10^3/ul; Eosinophil % 0.8 % (0-6); Hematocrit 40 % (42-52); Hemoglobin 13.2 g/dl (14.0-18.0); Lymphocyte % 13.6 % (25-47); Mean Corpuscular HGB Conc 33 g/dl (31-36); Mean Corpuscular Hemoglobin 31 pg (27-31); Mean Corpuscular Volume 94 fL (80-94); Mean Platelet Volume 10 um3 (7.4-10.4); Nucleated Red Blood Cells % 0; Platelet Count 268 10^3/ul (150-450); Red Blood Count 4.24 10^6/ul (4.0-5.4); Red Cell Distribution Width 15 % (10.5-15); White Blood Count 12.9 10^3/ul (3.5-10.8)
[2017-08-15 13:22] LABS: EGFR Non-African American 54.7 (>60)
--- NOTE | 2017-08-15 13:47 | RAD ---
INDICATION: Dyspnea. COMPARISON: Comparison is made with a prior chest x-ray study from March 30, 2017. TECHNIQUE: AP and lateral views of the chest were obtained. FINDINGS: The heart appears mildly enlarged. The lungs are inflated. There is mild diffuse prominence of the interstitial markings with patchy perihilar infiltrates. There are trace bilateral pleural effusions. IMPRESSION: FINDINGS SUGGESTIVE OF CONGESTIVE HEART FAILURE LESS LIKELY PNEUMONIA.
--- NOTE | 2017-08-15 14:40 | RAD ---
HISTORY: Pneumonia versus CHF COMPARISONS: March 31, 2017, chest x-ray dated August 15, 2012 TECHNIQUE: Multiple contiguous axial CT scans of the chest were obtained without intravenous contrast. Coronal and sagittal multiplanar reformations are also submitted for review. FINDINGS: The study is limited by the lack of intravenous contrast. This limits evaluation of the solid organs and vasculature. NECK AND THYROID: The lower neck and thyroid are unremarkable. CHEST WALL: There is no lower cervical, axillary, or supraclavicular lymphadenopathy by size criteria. HEART AND PERICARDIUM: Coronary and valvular cardiac calcifications are noted. AORTA AND PULMONARY VASCULATURE: The aorta and pulmonary vasculature are normal. MEDIASTINUM: There is no mediastinal lymphadenopathy by size criteria. ZACH: There is no hilar lymphadenopathy by size criteria. AIRWAY AND ESOPHAGUS: The airway is unremarkable, without endobronchial filling defect. The esophagus is grossly normal. LUNG PARENCHYMA: There is interlobular septal thickening with an apical predominance. There is a 0.4 cm nodule on axial image 30 within the superior segment of the left lower lobe. There is a 0.4 cm nodule of the right upper lobe on axial image 23. There is a 0.3 cm nodule of the right upper lobe on axial image 25. These are likely seen on previous examinations, though evaluation is limited by patient breathing motion artifact on the previous examination. There is minimal dependent atelectasis of the lung bases bilaterally.. PLEURA: There are small bilateral pleural effusions. UPPER ABDOMEN: Renal cysts are noted. BONES AND SOFT TISSUES: Degenerative changes are noted. OTHER: None. IMPRESSION: 1. FINDINGS MOST CONSISTENT WITH PULMONARY INTERSTITIAL EDEMA. 2. SMALL BILATERAL PLEURAL EFFUSIONS. 3. CORONARY ARTERY DISEASE 4. SEVERAL SMALL NODULES MEASURING UP TO 0.4 CM IN SIZE. THE RECOMMENDATIONS FOR FOLLOWUP AND MANAGEMENT OF AN INCIDENTALLY DETECTED PULMONARY NODULE LESS THAN 6 MM IN SIZE, IN A PATIENT WITHOUT A HISTORY OF MALIGNANCY, INCLUDE NO FOLLOWUP FOR A LOW-RISK PATIENT OR OPTIONAL FOLLOWUP CT IN 12 MONTHS FOR A HIGH RISK PATIENT. NOTES: SIZE = AVERAGE LENGTH AND WIDTH; HIGH RISK IS DEFINED A HISTORY OF SMOKING OR OTHER KNOW RISK FACTORS FOR LUNG CANCER; LOW RISK IS DEFINED MINIMAL OR ABSENT HISTORY OF SMOKING OR OTHER KNOWN RISK FACTORS. Pari Murguia, WARD Lora, BILLY Cazares, et al (2017) "Guidelines for Management of Incidental Pulmonary Nodules Detected on CT Images: From the Fleischner Society 2017." Radiology; 284(1): 228-243. doi:10.1148/radiol.[id number] 1.
[2017-08-15] MEDS ORDERED: Furosemide IV* 10 MG/ML VIAL (40 MG) IV ONE (14:41)
[2017-08-15] MEDS ORDERED: Ondansetron INJ* 2 MG/ML VIAL IV PRN (15:59)
[2017-08-15] MEDS ORDERED: Acetaminophen TAB* 325 MG PO PRN (15:59)
[2017-08-15] MEDS ORDERED: Al Hydrox/Mg Hydrox/Simet LIQ* 30 ML UDC PO PRN (15:59)
[2017-08-15] MEDS ORDERED: Magnesium Hydroxide LIQ* 30 ML UDC PO PRN (15:59)
[2017-08-15] MEDS ORDERED: Dextrose 50% Syringe 50 ML* 25 GM/50 ML SYRINGE IV PUSH PRN (16:11)
[2017-08-15] MEDS ORDERED: Insulin GLARGINE(*) 1 UNITS UNIT SUBCUT SCH (17:00)
[2017-08-15] MEDS: Insulin LISPRO* 1 UNITS UNIT SUBCUT SCH ×2 (18:39→22:08)
[2017-08-15] MEDS: Atorvastatin* 20 MG TAB PO SCH (18:53)
[2017-08-15] MEDS ORDERED: Furosemide IV* 10 MG/ML VIAL (40 MG) IV SCH (20:00)
[2017-08-15] MEDS: Senna TAB PO SCH (22:08)
[2017-08-15] MEDS: Heparin VIAL(*) 5000 UNITS/ML VIAL (FIVE THOUSAND) SUBCUT SCH (22:09)
[2017-08-16] MEDS: Heparin VIAL(*) 5000 UNITS/ML VIAL (FIVE THOUSAND) SUBCUT SCH ×3 (05:34→22:59)
[2017-08-16] MEDS ORDERED: Furosemide IV* 10 MG/ML VIAL (40 MG) IV SCH (06:00)
--- NOTE | 2017-08-16 07:05 | HP ---
AMENDED REPORT NOW INCLUDES COSIGNER DESIGNATION - ESIGNED BEFORE ADJUSTMENT CC: Dr. Arevalo* HISTORY AND PHYSICAL: DATE OF ADMISSION: 08/15/17 PROVIDER: Alexsandra Nolasco NP ATTENDING PHYSICIAN WHILE IN THE HOSPITAL: Carleen Daniel MD * (dictated by Alexsandra Nolasco NP). PRIMARY CARE PROVIDER: Dr. Arevalo CHIEF COMPLAINT: Shortness of breath. HISTORY OF PRESENT ILLNESS: Mr. Zamorano is a 76-year-old man with a past medical history of type 2 diabetes, aortic stenosis, diastolic dysfunction, chronic lower extremity wounds, obesity, hyperlipidemia, who presented to the emergency room with shortness of breath. The patient reports that he had increased shortness of breath that started 2 days ago. He states that his breathing became worse with exertion. He states that he has been wheezing and denies any cough. He does report that he tried his 's Ventolin inhaler, which did help his shortness of breath for a couple minutes and then the shortness of breath returned. He denies any sick contacts, fevers or chills. He denies any chest pain. He does report that he has orthopnea, finding it difficult to lay flat. He does have chronic lower extremity edema, which he does not think is worse than usual. He reports no weight gain. In the emergency room, the patient was found to have an elevated BNP of 507. Physical exam and chest x-ray findings are significant for fluid overload. Hospitalist service was consulted for evaluation for admission of shortness of breath. PAST MEDICAL HISTORY: 1. Type 2 diabetes. 2. Aortic stenosis. 3. Diastolic dysfunction. 4. Chronic lower extremity wounds. 5. Obesity. 6. OA. 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 MEDICATIONS: Home medications include: 1. Victoza. 2. Metformin 500 mg p.o. b.i.d. 3. Aspirin 81 mg p.o. daily. 4. Ramipril 5 mg p.o. daily. 5. Insulin 70/30, 60 units in the a.m. and 50 units in the p.m. 6. Simvastatin 40 mg. 7. Metoprolol succinate XL 25 mg p.o. daily. 8. Lasix 40 mg p.o. daily. ALLERGIES TO MEDICATIONS: No known drug allergies. FAMILY HISTORY: Denies any history of coronary artery disease in the family. Diabetes: Mother and father, brother and sisters are all diabetics. Denies any cancer in the family. SOCIAL HISTORY: Denies tobacco use. Denies alcohol or drug use. He is . His surrogate decision maker, in the event he is unable to make his own decisions, is his , Freedom Zamorano. Her cell phone number is [phone]. REVIEW OF SYSTEMS: There was no documented fever. There has been no significant weight change. There was no double vision. There was no ear discharge, no rhinorrhea. There is no sore throat. He denies any chest pain. He does report some orthopnea and shortness of breath with exertion. Denies cough, fever or chills. There is no abdominal pain, nausea, vomiting or diarrhea. Denies dysuria or frequency. There was no loss of consciousness. No pruritus or skin ulcerations. He does have chronic lower leg wounds that are healing. He does have one on the left posterior heel and the left top of his foot. A review of 14 systems was completed and all others are negative. PHYSICAL EXAMINATION GENERAL: At this time, Mr. Zamorano is a 77-year-old male who presented to the emergency room with increased shortness of breath x2 days. He does appear to be in mild respiratory distress. VITAL SIGNS: Blood pressure 117/46, temperature was 97.6, heart rate was 51, respirations were 19, O2 sat was 96% on 3 L nasal cannula. HEENT: Head is atraumatic, normocephalic. Eyes: EOMs are intact. Sclerae anicteric, not pale. Oral mucosa appears to be moist. No oropharyngeal erythema. NECK: Supple. LUNGS: Diminished throughout bilaterally. There are no wheezes, rales, or rhonchi. CARDIAC: S1, S2. He does have a murmur. ABDOMEN: Soft and nontender. Bowel sounds are present x4. EXTREMITIES: Pedal pulses are +2. There is mild edema to the lower extremities , with bilateral discoloration. Both lower extremities are warm to touch. He is able to move all extremities with 5/5 strength. NEUROLOGIC: He is awake, she is alert, and oriented x3. Speech is clear. There are no focal deficits noted. SKIN: He does have a small open area to his left posterior heel and top of the left foot. He has previously seen the wound care center for these wounds in the past. DIAGNOSTIC STUDIES/LAB DATA: WBCs were 12.9, RBCs 4.24, hemoglobin was 13.2, hematocrit was 40, platelet count was 268. Sodium was 133, potassium 4.7, chloride 97, carbon dioxide was 27, anion gap was 9, BUN was 24, creatinine 1.27 , glucose was 103, calcium was 9.6. AST was 21, ALT was 23. Troponin was 0.04 x2 and at 1833 was 0.05. BNP was 507. EKG was completed today, which showed sinus rhythm with PVCs. Chest x-ray: Impression: Findings suggestive of congestive heart failure, less likely pneumonia. He did also have a CT of the chest. Radiologist's impression: 1. Findings most consistent with pulmonary interstitial edema. 2. Small bilateral pleural effusions. 3. Coronary artery disease. 4. Several small nodules measuring up to 0.4 cm in size. Recommendations for followup and management of this incidental detected pulmonary nodule, less than 6 mm in size, in a patient without any history of malignancy include no followup for a low-risk patient or optional followup CT in 12 months for a high risk patient. ASSESSMENT AND PLAN: Mr. Zamorano is a 77-year-old male that presented to the emergency room with increased shortness of breath x2 days. We were asked to evaluate because of his increased shortness of breath and radiographic imaging showing congestive heart failure. He will be admitted under observation for: 1. Acute on chronic diastolic congestive heart failure exacerbation. The patient received 40 mg of Lasix in the emergency room. We will continue him on 40 mg of Lasix IV q.12 hours. The patient will have strict intake and output. We will do a repeat echocardiogram. The patient has a mildly elevated troponin , likely due to congestive heart failure. We will continue to trend these for now and monitor the patient on telemetry. 2. Type 2 diabetes. The patient will be placed on q.a.c. and h.s. Accu-Cheks. He was placed on a sliding scale. We will continue the patient's metformin for now. 3. Hyperlipidemia. We will continue him on simvastatin 40 mg. 4. Hypertension. We will continue his ramipril and DVT prophylaxis. He will be placed on heparin 5000 subcutaneously q.8 hours and SCDs. 5. Diet. He can have a heart-healthy diet, decaf is okay. 6. Code status. He is a full code. TIME SPENT: Time spent on this admission was approximately 60 minutes, greater than half that time was spent [id number] with the patient obtaining my history and physical, the other half of the time was spent going over my plan of care with the patient and implementing the plan of care. I have discussed my plan of care with my attending physician, Dr. Carleen Daniel , and she is in agreement with my plan. ALEXSANDRA NOLASCO, PRODUCTION SUPPORT CONSULTANT [id number]/CPS #: [id number] DINORA
[2017-08-16] MEDS: Aspirin EC Low Dose* 81 MG TAB.EC PO SCH (08:26)
[2017-08-16] MEDS: Senna TAB PO SCH ×2 (08:26→20:30)
[2017-08-16] MEDS: Insulin LISPRO* 1 UNITS UNIT SUBCUT SCH ×6 (08:27→20:28)
[2017-08-16] MEDS: Ramipril CAP* 5 MG PO SCH (08:39)
[2017-08-16] MEDS ORDERED: Metoprolol Succinate XL TAB* 25 MG PO SCH (09:00)
[2017-08-16 09:52] LABS: ABS Basophils 0 10^3/ul (0-0.2); ABS Eosinophils 0.1 10^3/ul (0-0.6); ABS Lymphocytes 1.3 10^3/ul (1.0-4.8); ABS Monocytes 0.9 10^3/ul (0-0.8); ABS Neutrophils 9.2 10^3/ul (1.5-7.7); ABS Nucleated RBC 0 10^3/ul; Eosinophil % 0.9 % (0-6); Hematocrit 39 % (42-52); Hemoglobin 12.8 g/dl (14.0-18.0); Lymphocyte % 11.2 % (25-47); Mean Corpuscular HGB Conc 33 g/dl (31-36); Mean Corpuscular Hemoglobin 31 pg (27-31); Mean Corpuscular Volume 94 fL (80-94); Mean Platelet Volume 9 um3 (7.4-10.4); Nucleated Red Blood Cells % 0.1; Platelet Count 261 10^3/ul (150-450); Red Blood Count 4.16 10^6/ul (4.0-5.4); Red Cell Distribution Width 14 % (10.5-15); White Blood Count 11.5 10^3/ul (3.5-10.8)
[2017-08-16] MEDS ORDERED: Furosemide IV* 10 MG/ML VIAL (40 MG) IV SLOW PU ONE (10:00)
[2017-08-16 10:08] LABS: EGFR Non-African American 49.7 (>60)
--- NOTE | 2017-08-16 11:11 | PN ---
Subjective - Subjective Reason for Note: Progress Note History: I spoke to Kolton Zamorano and his Terrell Zamorano. He had a 3 day history of worsening dyspnea. He declined Terrell's suggestion to seek help day 1. He has not followed our CHF instructions (he is not weighing himself daily, he is not being compliant with diet). He presents with acute pulmonary edema, small pleural effusions most likely due to diastolic dysfunction and poor compliance. Today he is no longer dyspneic at rest. He continues to wheeze. He denies chest pain, palpitations, paroxysmal nocturnal dyspnea, orthopnea. He has edema of his legs. Active Problems: Active Problems Acute dyspnea (Acute) R06.00 Diastolic CHF (Acute) I50.30 Pleural effusion due to congestive heart failure (Acute) I50.9 Pulmonary edema cardiac cause (Acute) I50.1 Troponin level elevated (Acute) R79.89 Ventricular extrasystoles (Acute) I49.3 Aortic stenosis (Chronic) I35.0 Atrial septal defect (Chronic) Q21.1 Hypercholesteremia (Chronic) E78.0 Left ventricular hypertrophy (Chronic) I51.7 Mild mitral regurgitation (Chronic) I34.0 Obesities, morbid (Chronic) E66.01 Pulmonary nodule less than 6 cm determined by computed tomography of lung ( Chronic) R91.1 Type 2 diabetes mellitus with neurological manifestations, uncontrolled (Chronic ) E11.49, E11.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, uncontrolled, with renal complications (Chronic) E11.29, E11.65 Current Medications: Current Medications Acetaminophen (Tylenol Tab*) 650 mg PO Q4H PRN PRN Reason: FEVER/PAIN Al Hydrox/Mg Hydrox/Simethicone (Maalox Plus*) 30 ml PO Q6H PRN PRN Reason: INDIGESTION Aspirin (Aspirin Ec Low Dose*) 81 mg PO DAILY [facility] Last Admin: 08/16/17 08:26 Dose: 81 mg Atorvastatin Calcium (Lipitor*) 20 mg PO QPM [facility] Last Admin: 08/15/17 18:53 Dose: 20 mg Dextrose (D50w Syringe 50 Ml*) 12.5 gm IV PUSH .FOR FS < 60 - SS PRN PRN Reason: FS < 60 Furosemide (Lasix Iv*) 40 mg IV Q12H [facility] Last Admin: 08/16/17 05:34 Dose: 40 mg Heparin Sodium (Porcine) (Heparin Vial(*)) 5,000 units SUBCUT Q8HR [facility] Last Admin: 08/16/17 05:34 Dose: Not Given Insulin Glargine (Lantus(*)) 20 units SUBCUT Q24H [facility] Last Admin: 08/15/17 18:39 Dose: Not Given Insulin Human Lispro (Humalog*) 0 units SUBCUT ACHS [facility] PRN Reason: Protocol Last Admin: 08/16/17 08:27 Dose: 8 unit Magnesium Hydroxide (Milk Of Magnfaraz Liq*) 30 ml PO Q4H PRN PRN Reason: CONSTIPATION Metoprolol Succinate (Toprol Xl Tab*) 25 mg PO DAILY [facility] Last Admin: 08/16/17 08:39 Dose: 25 mg Ondansetron HCl (Zofran Inj*) 4 mg IV Q4H PRN PRN Reason: NAUSEA/VOMITING Ramipril (Altace Cap*) 5 mg PO DAILY [facility] Last Admin: 08/16/17 08:39 Dose: 5 mg Senna (Senokot Tab*) 1 tab PO BID [facility] Last Admin: 08/16/17 08:26 Dose: 1 tab - Review of Systems Pulmonary: Positive: Respiratory Distress, Shortness of Breath Negative: Cough, Sputum Cardiology: Positive: Swelling of Ankles Negative: Chest Pain, Shortness of Breath, Palpitations Gastroenterology: Negative: Abdominal Pain, Nausea, Vomiting, Anorexia, Constipation, Diarrhea Genital - Urinary: Negative: Dysuria, Polyuria Home Medications: Home Medications Medication Instructions Recorded Confirmed Type Insulin ISOPH/REG 70/30 (*) 60 unit SUBCUT QAM MDD 200 units 02/24/15 08/15/17 History [HumulIN 70/30 (*)] Ramipril CAP* [Altace CAP*] 5 mg PO DAILY 02/24/15 08/15/17 History Liraglutide [Victoza 3-Brian] 1.8 ml SUBCUT DAILY 06/16/15 08/15/17 History Insulin ISOPH/REG 70/30 (*) 55 units SUBCUT QPM MDD 200 units 06/28/15 08/15/17 History [HumuLIN 70/30 (*)] Aspirin EC Low Dose* [Ecotrin EC 81 mg PO DAILY 02/07/16 08/15/17 History Low Dose 81 MG*] Simvastatin [Zocor 40 MG (NF)] 40 mg PO QPM 02/07/16 08/15/17 History Sulfamethox/Trimethoprim DS* 1 tab PO BID #30 tab 06/26/17 08/15/17 Rx [Bactrim DS 800/160 TAB*] Furosemide TAB* [Lasix TAB*] 40 mg PO DAILY 08/15/17 08/15/17 History Insulin ISOPH/REG 70/30 (*) 50 units SUBCUT BEDTIME MDD 200 08/15/17 08/15/17 History [HumuLIN 70/30 (*)] units Metformin ER (NF) 500 mg PO BID 08/15/17 08/15/17 History Metoprolol Succinate XL TAB* 25 mg PO DAILY 08/15/17 08/15/17 History [Toprol XL TAB*] Allergies: Allergies Allergy/AdvReac Type Severity Reaction Status Date / Time No Known Allergies Allergy Verified 08/15/17 11:25 Objective - Vital Signs Vital Signs: Vital Signs 08/15/17 08/15/17 08/15/17 15:30 16:00 16:25 Temperature 0 F Pulse Rate 51 63 Respiratory 22 24 Rate Blood Pressure 118/61 133/64 133/64 (mmHg) O2 Sat by Pulse 100 100 Oximetry 08/15/17 08/15/17 08/15/17 17:00 19:29 20:00 Temperature 97.3 F 98.3 F Pulse Rate 52 41 Respiratory 24 24 24 Rate Blood Pressure 116/61 97/71 (mmHg) O2 Sat by Pulse 93 98 Oximetry 08/16/17 08/16/17 08/16/17 00:14 04:35 08:38 Temperature 97.9 F 97.9 F 97.6 F Pulse Rate 47 99 108 Respiratory 16 16 28 Rate Blood Pressure 108/61 113/64 114/73 (mmHg) O2 Sat by Pulse 96 95 98 Oximetry - Intake and Output Intake and Output: Intake & Output 08/13/17 08/14/17 08/15/17 08/16/17 11:59 11:59 11:59 11:59 Intake Total 200 Output Total 875 Balance -675 Weight 269 lb 9.6 oz Intake: Oral 200 Output: Urine 875 Other: Estimated Void Medium # Bowel Movements 0 # Voids 4 ADLs: Meal Record Start: 08/15/17 16: 39 Freq: DAILY@0900,1400,1800 Status: Active Protocol: Created 08/15/17 16:39 System (Rec: 08/15/17 16:39 System [id number]) Document 08/16/17 09:00 [id number] (Rec: 08/16/17 09:14 [id number] [id number]) Intake and Output Start: 08/15/17 16: 39 Freq: DAILY@0600,1400,2200 Status: Active Protocol: Created 08/15/17 16:39 System (Rec: 08/15/17 16:39 System [id number]) Document 08/15/17 21:47 [id number] (Rec: 08/15/17 21:48 [id number] TELE-C08) Document 08/16/17 05:45 [id number] (Rec: 08/16/17 05:45 [id number] TELE-C13) Document 08/16/17 06:37 [id number] (Rec: 08/16/17 06:37 [id number] TELE-C06) - Physical Exam General Physical Exam Comment: He has callouses of both heels General: No Cyanosis, No Jaundice, No Clubbing Lungs and Chest: Yes: Chest Expansion Full, Chest Expansion Symetrica, Vessicular Breath Sounds, Crackles - bibasilar, Wheezes. No: Percussion Note Resonant - dull bases, Respiratory Distress, Use of Accessory Muscles Heart Rate and Rhythm: Irregular Additional Cardiovascular: Yes: Normal Heart Sounds, Pedal Edema - 1+. No: Heart Murmur Abdominal Exam: Yes: Soft, Bowel Sounds Present. No: Distention, Abdominal Mass , Abdominal Tenderness - Extremities Cranial Nerves II-XII Intact: Yes Limbs: Normal Power, Normal Tone - Neuro Orientation: A/O x3 Speech: Normal Results - Results Lab Results: Laboratory Results - last 24 hr 08/15/17 08/15/17 08/15/17 16:16 17:02 18:33 WBC RBC Hgb Hct MCV MCH MCHC RDW Plt Count MPV Neut % (Auto) Lymph % (Auto) [place] % (Auto) Eos % (Auto) Baso % (Auto) Absolute Neuts (auto) Absolute Lymphs (auto) Absolute Monos (auto) Absolute Eos (auto) Absolute Basos (auto) Absolute Nucleated RBC Nucleated RBC % Sodium Potassium Chloride Carbon Dioxide Anion Gap BUN Creatinine Est GFR ( Amer) Est GFR (Non-Af Amer) BUN/Creatinine Ratio Glucose 66 L POC Glucose (mg/dL) 51 L Calcium Troponin I 0.04 H* 0.05 H* 08/15/17 08/15/17 08/16/17 18:55 21:22 07:29 WBC RBC Hgb Hct MCV MCH MCHC RDW Plt Count MPV Neut % (Auto) Lymph % (Auto) [place] % (Auto) Eos % (Auto) Baso % (Auto) Absolute Neuts (auto) Absolute Lymphs (auto) Absolute Monos (auto) Absolute Eos (auto) Absolute Basos (auto) Absolute Nucleated RBC Nucleated RBC % Sodium Potassium Chloride Carbon Dioxide Anion Gap BUN Creatinine Est GFR ( Amer) Est GFR (Non-Af Amer) BUN/Creatinine Ratio Glucose POC Glucose (mg/dL) 180 H 147 H 337 H Calcium Troponin I 08/16/17 08/16/17 09:39 09:39 WBC 11.5 H RBC 4.16 Hgb 12.8 L Hct 39 L MCV 94 MCH 31 MCHC 33 RDW 14 Plt Count 261 MPV 9 Neut % (Auto) 79.5 Lymph % (Auto) 11.2 L [place] % (Auto) 8.0 Eos % (Auto) 0.9 Baso % (Auto) 0.4 Absolute Neuts (auto) 9.2 H Absolute Lymphs (auto) 1.3 Absolute Monos (auto) 0.9 H Absolute Eos (auto) 0.1 Absolute Basos (auto) 0 Absolute Nucleated RBC 0 Nucleated RBC % 0.1 Sodium 131 L Potassium 4.9 Chloride 94 L Carbon Dioxide 29 Anion Gap 8 BUN 32 H Creatinine 1.38 H Est GFR ( Amer) 63.9 Est GFR (Non-Af Amer) 49.7 BUN/Creatinine Ratio 23.2 H Glucose 340 H POC Glucose (mg/dL) Calcium 9.9 Troponin I 0.03 Radiology Results: Patient Name: ANJELICA ZAMORANO Medical Record#: [id number] Ordering Physician: Brain Hernandez MD Acct.#: [id number] : 1940 Age: 77 Sex: M Location: EMERGENCY DEPARTMENT Exam Date: 08/15/17 1358 ADM Status: REG ER Order Information: CT CHEST W/O Accession Number: [id number] CPT: 47246 HISTORY: Pneumonia versus CHF COMPARISONS: March 31, 2017, chest x-ray dated August 15, 2012 TECHNIQUE: Multiple contiguous axial CT scans of the chest were obtained without intravenous contrast. Coronal and sagittal multiplanar reformations are also submitted for review. FINDINGS: The study is limited by the lack of intravenous contrast. This limits evaluation of the solid organs and vasculature. NECK AND THYROID: The lower neck and thyroid are unremarkable. CHEST WALL: There is no lower cervical, axillary, or supraclavicular lymphadenopathy by size criteria. HEART AND PERICARDIUM: Coronary and valvular cardiac calcifications are noted. AORTA AND PULMONARY VASCULATURE: The aorta and pulmonary vasculature are normal. MEDIASTINUM: There is no mediastinal lymphadenopathy by size criteria. ZACH: There is no hilar lymphadenopathy by size criteria. AIRWAY AND ESOPHAGUS: The airway is unremarkable, without endobronchial filling defect. The esophagus is grossly normal. LUNG PARENCHYMA: There is interlobular septal thickening with an apical predominance. There is a 0.4 cm nodule on axial image 30 within the superior segment of the left lower lobe. There is a 0.4 cm nodule of the right upper lobe on axial image 23. There is a 0.3 cm nodule of the right upper lobe on axial image 25. These are likely seen on previous examinations, though evaluation is limited by patient breathing motion artifact on the previous examination. There is minimal dependent atelectasis of the lung bases bilaterally.. PLEURA: There are small bilateral pleural effusions. UPPER ABDOMEN: Renal cysts are noted. BONES AND SOFT TISSUES: Degenerative changes are noted. OTHER: None. IMPRESSION: 1. FINDINGS MOST CONSISTENT WITH PULMONARY INTERSTITIAL EDEMA. 2. SMALL BILATERAL PLEURAL EFFUSIONS. 3. CORONARY ARTERY DISEASE 4. SEVERAL SMALL NODULES MEASURING UP TO 0.4 CM IN SIZE. THE RECOMMENDATIONS FOR FOLLOWUP AND MANAGEMENT OF AN INCIDENTALLY DETECTED PULMONARY NODULE LESS THAN 6 MM IN SIZE, IN A PATIENT WITHOUT A HISTORY OF MALIGNANCY, INCLUDE NO FOLLOWUP FOR A LOW-RISK PATIENT OR OPTIONAL FOLLOWUP CT IN 12 MONTHS FOR A HIGH RISK PATIENT. NOTES: SIZE = AVERAGE LENGTH AND WIDTH; HIGH RISK IS DEFINED A HISTORY OF SMOKING OR OTHER KNOW RISK FACTORS FOR LUNG CANCER; LOW RISK IS DEFINED MINIMAL OR ABSENT HISTORY OF SMOKING OR OTHER KNOWN RISK FACTORS. Pari Murguia, WARD Lora, BILLY Cazares, et al (2017) "Guidelines for Management of Incidental Pulmonary Nodules Detected on CT Images: From the Fleischner Society 2017." Radiology; 284(1): 228-243. doi:10.1148/radiol.7818237384 1 of 2 Patient Name: ANJELICA ZAMORANO Medical Record#: [id number] Ordering Physician: Brain Hernandez MD Acct.#: [id number] : 1940 Age: 77 Sex: M Location: EMERGENCY DEPARTMENT Exam Date: 08/15/17 1301 ADM Status: REG ER Order Information: CHEST PA & LAT 2 VWS Accession Number: [id number] CPT: 33277 INDICATION: Dyspnea. COMPARISON: Comparison is made with a prior chest x-ray study from March. TECHNIQUE: AP and lateral views of the chest were obtained. FINDINGS: The heart appears mildly enlarged. The lungs are inflated. There is mild diffuse prominence of the interstitial markings with patchy perihilar infiltrates. There are trace bilateral pleural effusions. IMPRESSION: FINDINGS SUGGESTIVE OF CONGESTIVE HEART FAILURE LESS LIKELY PNEUMONIA. <Electronically signed by Nicolas Cottrell MD in OV> 08/15/17 1344 Dictated By: Nicolas Cottrell MD Dictated Date/Time: 08/15/17 1344 Transcribed Date/Time: 08/15/17 1342 Copy to: CC:Roque Arevalo MD; Brain Hernandez MD Imaging - [facility] Imaging - [place] [facility] [address] [address] ph [phone]) ph ([phone]) ph ([phone]) 1 of 1 Assessment - Problem List Assessment: Patient Problems Acute dyspnea (Acute) Diastolic CHF (Acute) Pleural effusion due to congestive heart failure (Acute) Pulmonary edema cardiac cause (Acute) Troponin level elevated (Acute) Ventricular extrasystoles (Acute) Aortic stenosis (Chronic) Atrial septal defect (Chronic) Hypercholesteremia (Chronic) Left ventricular hypertrophy (Chronic) Mild mitral regurgitation (Chronic) Obesities, morbid (Chronic) Pulmonary nodule less than 6 cm determined by computed tomography of lung ( Chronic) Type 2 diabetes mellitus with neurological manifestations, 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 On that occasion he had a complete cardiac work up including a transthoracic echocardiogram and also a chemical nuclear medicine stress test. He has not been compliant with the recommendations and presents again with diastolic CHF. Troponin level elevated (Acute) This is likely secondary to his CHF Ventricular extrasystoles (Acute) This is chronic and ongoing Aortic stenosis (Chronic) secondary diagnosis Atrial septal defect (Chronic) secondary diagnosis Hypercholesteremia (Chronic) secondary diagnosis Mild mitral regurgitation (Chronic) secondary diagnosis Obesities, morbid (Chronic) Pulmonary nodule less than 6 cm determined by computed tomography of lung ( Chronic) I will follow as outpatient Type 2 diabetes mellitus with neurological manifestations, uncontrolled (Chronic )Type 2 diabetes mellitus, uncontrolled, with renal complications (Chronic) He usually doesn't comply with diet. I expect he will have a lower requirement for insulin in the hospital - I will cut this down. I discussed the above with the patient and his .
[2017-08-16] MEDS ORDERED: Dextrose 50% Syringe 50 ML* 25 GM/50 ML SYRINGE IV PUSH PRN ×2 (11:28→11:30)
[2017-08-16] MEDS ORDERED: Insulin LISPRO* 1 UNITS UNIT SUBCUT SCH ×2 (11:30→12:00)
--- NOTE | 2017-08-16 12:27 | ED ---
Gerardo Arreola Jennifer, scribed for Brain Hernandez MD on 08/15/17 at 1254 . Shortness of Breath - HPI Summary HPI Summary: The patient is a 77 year old male who presents to the ED with shortness of breath that began three days ago. The patient describes that walking aggravates the shortness of breath and he sees his primary care physician two times a month for it. He denies chest pain and swelling in the feet. The patient adds that he had a similar episode one month ago that showed a blood clot in his lungs. He additionally has a wound on the back of his left foot. He uses O2 at home at night. - History of Current Complaint Chief Complaint: EDShortnessOfBreath Time Seen by Provider: 08/15/17 12:33 Hx Obtained From: Patient Onset/Duration: Lasting Days - 3 days Timing: Constant Current Severity: Mild Aggrevating Factors: Movement Alleviating Factors: Nothing Associated Signs & Symptoms: Negative - Chest Pain Related History: Similar Episode - one month ago - Allergy/Home Medications Allergies/Adverse Reactions: Allergies Allergy/AdvReac Type Severity Reaction Status Date / Time No Known Allergies Allergy Verified 08/15/17 11:25 Home Medications: Home Medications Furosemide TAB* [Lasix TAB*] 40 mg PO DAILY 08/15/17 [History Confirmed 08/15/17 ] Insulin ISOPH/REG 70/30 (*) [HumuLIN 70/30 (*)] 50 units SUBCUT BEDTIME MDD 200 units 08/15/17 [History Confirmed 08/15/17] Metformin ER (NF) 500 mg PO BID 08/15/17 [History Confirmed 08/15/17] Metoprolol Succinate XL TAB* [Toprol XL TAB*] 25 mg PO DAILY 08/15/17 [History Confirmed 08/15/17] PMH/Surg Hx/FS Hx/Imm Hx Endocrine/Hematology History: Reports: Hx Diabetes Denies: Hx Anticoagulant Therapy, Hx Thyroid Disease, Hx Anemia Cardiovascular History: Reports: Hx Hypercholesterolemia, Hx Hypertension, Hx Myocardial Infarction Denies: Hx Angina, Hx Congestive Heart Failure, Hx Coronary Artery Disease, Hx Deep Vein Thrombosis, Hx Pacemaker/ICD, Hx Valvular Heart Disease Respiratory History: Reports: Hx Sleep Apnea Denies: Hx Asthma, Hx Chronic Obstructive Pulmonary Disease (COPD), Hx Lung Cancer, Hx Pneumonia, Hx Pulmonary Embolism GI History: Denies: Hx Gall Bladder Disease, Hx Gastrointestinal Bleed, Hx Jaundice, Hx Ulcer, Hx Urosepsis History: Denies: Hx Kidney Stones, Hx Renal Disease Musculoskeletal History: Reports: Other Musculoskeletal History - LEFT KNEE PAIN R/T ATHRITIS Sensory History: Reports: Hx Cataracts - BILATERAL, Other Sensory Impairments - DECREASED SENSATION IN FEET AND LEGS Denies: Hx Contacts or Glasses, Hx Hearing Aid Opthamlomology History: Reports: Hx Cataracts - BILATERAL, Other Sensory Impairments - DECREASED SENSATION IN FEET AND LEGS Denies: Hx Contacts or Glasses Neurological History: Denies: Hx Dementia, Hx Headaches, Hx Migraine, Hx Seizures, Hx Transient Ischemic Attacks (TIA) Psychiatric History: Denies: Hx Anxiety, Hx Depression, Hx Panic Disorder, Hx Schizophrenia, Hx Bipolar Disorder - Surgical History Surgery Procedure, Year, and Place: 2008 LEFT GREAT TOE SURGERY [facility]. 01/2014 BILATERAL CATARACT [facility] Hx Anesthesia Reactions: No Infectious Disease History: No Infectious Disease History: Denies: Hx Clostridium Difficile, Hx Hepatitis, Hx Human Immunodeficiency Virus (HIV), Hx of Known/Suspected MRSA, Hx Shingles, Hx Tuberculosis, Hx Known/ Suspected VRE, Hx Known/Suspected VRSA, History Other Infectious Disease, Traveled Outside the [place] in Last 30 Days - Family History Known Family History: Positive: Cardiac Disease, Hypertension, Diabetes - Social History Alcohol Use: None Substance Use Type: Reports: None Smoking Status (MU): Never Smoked Tobacco Have You Smoked in the Last Year: No Review of Systems Negative: Chest Pain Positive: Shortness Of Breath All Other Systems Reviewed And Are Negative: Yes Physical Exam - Summary Physical Exam Summary: Appearance: Obese. Skin: Warm, Dry, No rash Eyes: Normal, PERRL, EOMI, sclera anicteric ENT: Large tongue, neck obese Neck: Supple, nontender Respiratory: Mild respiratory distress, bilateral rales, some dullness at the right base Cardiovascular: S1 and S2 with systolic murmur. no rub, no gallop, heart best in mitral position, soft diastolic rumble Abdomen: Obese, Soft, nontender, no organomegaly Bowel sounds: Present Extremities: ulcer overlaying left Achilles tendon, shallow and small without surrounding cellulitis. Musculoskeletal: Normal, Strength/ROM Intact, no edema, pulses symmetrical Neurological: Normal, A&Ox3, cranial nerves II-XII WNL, follows commands, gait not tested, sensation intact to pin and light touch Psychiatric: affect normal, behavior appropriate, dressed appropriately, judgment intact Triage Information Reviewed: Yes Vital Signs On Initial Exam: Initial Vitals Temp Pulse Resp BP Pulse Ox 97.6 F 51 19 117/46 96 08/15/17 12:35 08/15/17 12:35 08/15/17 12:35 08/15/17 12:35 08/15/17 12:35 Vital Signs Reviewed: Yes Diagnostics - Vital Signs Vital Signs Temp Pulse Resp BP Pulse Ox 08/15/17 12:35 97.6 F 51 19 117/46 96 - Laboratory Result Diagrams: 08/15/17 11:41 08/15/17 11:41 Lab Statement: Any lab studies that have been ordered have been reviewed, and results considered in the medical decision making process. - Radiology CXR Xray Interpretation: Positive (See Comments) - FINDINGS SUGGESTIVE OF CONGESTIVE HEART FAILURE LESS LIKELY PNEUMONIA. Dr. Hernandez has reviewed this report. Radiology Interpretation Completed By: Radiologist - CT Chest CT CT Interpretation: Positive (See Comments) - 1. FINDINGS MOST CONSISTENT WITH PULMONARY INTERSTITIAL EDEMA. 2. SMALL BILATERAL PLEURAL EFFUSIONS. 3. CORONARY ARTERY DISEASE 4. SEVERAL SMALL NODULES MEASURING UP TO 0.4 CM IN SIZE. THE RECOMMENDATIONS FOR FOLLOWUP AND MANAGEMENT OF AN INCIDENTALLY DETECTED PULMONARY NODULE LESS THAN 6 MM IN SIZE, IN A PATIENT WITHOUT A HISTORY OF MALIGNANCY, INCLUDE NO FOLLOWUP FOR A LOW-RISK PATIENT OR OPTIONAL FOLLOWUP CT IN 12 MONTHS FOR A HIGH RISK PATIENT. Dr. Hernandez has reviewed this report. CT Interpretation Completed By: Radiologist - EKG 13:28 Cardiac Rate: Tachycardia EKG Rhythm: Sinus Tachycardia - 119 BPM EKG Interpretation: ventricular bigeminy, left atrial enlargement. Course/Dx - Course Assessment/Plan: The patient is a 77 year old male who presents to the ED with shortness of breath that began three days ago. Bloodwork was obtained. CXR shows FINDINGS SUGGESTIVE OF CONGESTIVE HEART FAILURE LESS LIKELY PNEUMONIA. Chest CT shows 1. FINDINGS MOST CONSISTENT WITH PULMONARY INTERSTITIAL EDEMA. 2. SMALL BILATERAL PLEURAL EFFUSIONS. 3. CORONARY ARTERY DISEASE 4. SEVERAL SMALL NODULES MEASURING UP TO 0.4 CM IN SIZE. THE RECOMMENDATIONS FOR FOLLOWUP AND MANAGEMENT OF AN INCIDENTALLY DETECTED PULMONARY NODULE LESS THAN 6 MM IN SIZE, IN A PATIENT WITHOUT A HISTORY OF MALIGNANCY, INCLUDE NO FOLLOWUP FOR A LOW-RISK PATIENT OR OPTIONAL FOLLOWUP CT IN 12 MONTHS FOR A HIGH RISK PATIENT. EKG was obtained. The patient is diagnosed with subendocardial myocardial infarction, right-sided congestive heart failure, coronary artery disease, and sleep apnea. The patient [place] going [place] [facility] [place] - Diagnoses Provider Diagnoses: Subendocardial myocardial infarction, Right-sided congestive heart failure, Coronary artery disease, Sleep apnea Discharge - Discharge Plan Condition: Good Disposition: ADMITTED TO [facility] Referrals: Roque Arevalo MD [Primary Care Provider] - Additional Instructions: RETURN TO THE EMERGENCY DEPARTMENT FOR CHANGING OR WORSENING SYMPTOMS. The documentation as recorded by the Gerardo barksdale Jennifer accurately reflects the service I personally performed and the decisions made by , Brain Hernandez MD.
[2017-08-16] MEDS: Furosemide IV* 10 MG/ML VIAL (40 MG) IV SCH ×2 (13:03→22:54)
[2017-08-16] MEDS: Insulin GLARGINE(*) 1 UNITS UNIT SUBCUT SCH (13:37)
[2017-08-16] MEDS: Potassium Chlor TAB* 20 MEQ TAB.ER PO SCH (13:38)
[2017-08-16] MEDS: Atorvastatin* 20 MG TAB PO SCH (18:27)
[2017-08-17] MEDS: Insulin GLARGINE(*) 1 UNITS UNIT SUBCUT SCH (00:21)
[2017-08-17 05:35] LABS: EGFR Non-African American 48.5 (>60)
[2017-08-17] MEDS: Heparin VIAL(*) 5000 UNITS/ML VIAL (FIVE THOUSAND) SUBCUT SCH (06:08)
[2017-08-17 08:15] VITALS: BP 119/66
[2017-08-17] MEDS ORDERED: Spironolactone TAB* 25 MG PO SCH (09:00)
[2017-08-17] MEDS ORDERED: PTO - Liraglutide (NF) 18 MG/3 ML SUBCUT SCH (09:00)
[2017-08-17] MEDS: Insulin LISPRO* 1 UNITS UNIT SUBCUT SCH ×4 (09:52→13:41)
[2017-08-17] MEDS: Aspirin EC Low Dose* 81 MG TAB.EC PO SCH (09:53)
[2017-08-17] MEDS: Ramipril CAP* 5 MG PO SCH (09:53)
[2017-08-17] MEDS: Senna TAB PO SCH (09:53)
[2017-08-17] MEDS: Potassium Chlor TAB* 20 MEQ TAB.ER PO SCH (09:53)
[2017-08-17] MEDS: Furosemide IV* 10 MG/ML VIAL (40 MG) IV SCH (09:54)
--- NOTE | 2017-08-17 09:58 | PN ---
Subjective - Subjective Reason for Note: Discharge Note History: He has no dyspnea, chest pain/pressure, palpitations, orthopnea/PND or wheezing. He wants to go home. Active Problems: Active Problems Acute dyspnea (Acute) R06.00 Diastolic CHF (Acute) I50.30 Pleural effusion due to congestive heart failure (Acute) I50.9 Pulmonary edema cardiac cause (Acute) I50.1 Troponin level elevated (Acute) R79.89 Ventricular extrasystoles (Acute) I49.3 Aortic stenosis (Chronic) I35.0 Atrial septal defect (Chronic) Q21.1 Hypercholesteremia (Chronic) E78.0 Left ventricular hypertrophy (Chronic) I51.7 Mild mitral regurgitation (Chronic) I34.0 Obesities, morbid (Chronic) E66.01 Pulmonary nodule less than 6 cm determined by computed tomography of lung ( Chronic) R91.1 Type 2 diabetes mellitus with neurological manifestations, uncontrolled (Chronic ) E11.49, E11.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, uncontrolled, with renal complications (Chronic) E11.29, E11.65 Current Medications: Current Medications Acetaminophen (Tylenol Tab*) 650 mg PO Q4H PRN PRN Reason: FEVER/PAIN Al Hydrox/Mg Hydrox/Simethicone (Maalox Plus*) 30 ml PO Q6H PRN PRN Reason: INDIGESTION Aspirin (Aspirin Ec Low Dose*) 81 mg PO DAILY [facility] Last Admin: 08/16/17 08:26 Dose: 81 mg Atorvastatin Calcium (Lipitor*) 20 mg PO QPM [facility] Last Admin: 08/16/17 18:27 Dose: 20 mg Dextrose (D50w Syringe 50 Ml*) 12.5 gm IV PUSH .FOR FS < 60 - SS PRN PRN Reason: FS < 60 Dextrose (D50w Syringe 50 Ml*) 12.5 gm IV PUSH .FOR FS < 60 - SS PRN PRN Reason: FS < 60 Furosemide (Lasix Iv*) 80 mg IV Q12H [facility] Last Admin: 08/16/17 22:54 Dose: 80 mg Heparin Sodium (Porcine) (Heparin Vial(*)) 5,000 units SUBCUT Q8HR [facility] Last Admin: 08/17/17 06:08 Dose: 5,000 units Insulin Glargine (Lantus(*)) 40 units SUBCUT Q12H [facility] Last Admin: 08/17/17 00:21 Dose: 40 units Insulin Human Lispro (Humalog*) 0 units SUBCUT AC [facility] PRN Reason: Protocol Last Admin: 08/16/17 20:27 Dose: 2 units Insulin Human Lispro (Humalog*) 0 units SUBCUT AC [facility] PRN Reason: Protocol Last Admin: 08/16/17 20:28 Dose: 12 unit Liraglutide (Victoza (Nf)) 1.2 mg SUBCUT DAILY [facility] Magnesium Hydroxide (Milk Of Magnesia Liq*) 30 ml PO Q4H PRN PRN Reason: CONSTIPATION Metoprolol Succinate (Toprol Xl Tab*) 25 mg PO DAILY [facility] Ondansetron HCl (Zofran Inj*) 4 mg IV Q4H PRN PRN Reason: NAUSEA/VOMITING Potassium Chloride (Klor Con Er Tab*) 20 meq PO DAILY [facility] Last Admin: 08/16/17 13:38 Dose: 20 meq Ramipril (Altace Cap*) 5 mg PO DAILY [facility] Last Admin: 08/16/17 08:39 Dose: 5 mg Senna (Senokot Tab*) 1 tab PO BID [facility] Last Admin: 08/16/17 20:30 Dose: 1 tab Spironolactone (Aldactone Tab*) 25 mg PO DAILY [facility] Home Medications: Home Medications Medication Instructions Recorded Confirmed Type Insulin ISOPH/REG 70/30 (*) 60 unit SUBCUT QAM MDD 200 units 02/24/15 08/15/17 History [HumulIN 70/30 (*)] Ramipril CAP* [Altace CAP*] 5 mg PO DAILY 02/24/15 08/15/17 History Liraglutide [Victoza 3-Brian] 1.8 ml SUBCUT DAILY 06/16/15 08/15/17 History Insulin ISOPH/REG 70/30 (*) 55 units SUBCUT QPM MDD 200 units 06/28/15 08/15/17 History [HumuLIN 70/30 (*)] Aspirin EC Low Dose* [Ecotrin EC 81 mg PO DAILY 02/07/16 08/15/17 History Low Dose 81 MG*] Simvastatin [Zocor 40 MG (NF)] 40 mg PO QPM 02/07/16 08/15/17 History Sulfamethox/Trimethoprim DS* 1 tab PO BID #30 tab 06/26/17 08/15/17 Rx [Bactrim DS 800/160 TAB*] Furosemide TAB* [Lasix TAB*] 40 mg PO DAILY 08/15/17 08/15/17 History Insulin ISOPH/REG 70/30 (*) 50 units SUBCUT BEDTIME MDD 200 08/15/17 08/15/17 History [HumuLIN 70/30 (*)] units Metformin ER (NF) 500 mg PO BID 08/15/17 08/15/17 History Metoprolol Succinate XL TAB* 25 mg PO DAILY 08/15/17 08/15/17 History [Toprol XL TAB*] Allergies: Allergies Allergy/AdvReac Type Severity Reaction Status Date / Time No Known Allergies Allergy Verified 08/15/17 11:25 Objective - Vital Signs Vital Signs: Vital Signs 08/16/17 08/16/17 08/16/17 11:44 16:07 19:54 Temperature 98.1 F 98.3 F 97.9 F Pulse Rate 39 94 93 Respiratory 20 24 28 Rate Blood Pressure 108/52 111/60 112/60 (mmHg) O2 Sat by Pulse 99 95 92 Oximetry 08/17/17 08/17/17 08/17/17 00:10 04:23 08:06 Temperature 97.9 F 98.4 F 98.5 F Pulse Rate 48 47 97 Respiratory 22 22 16 Rate Blood Pressure 114/62 113/51 119/66 (mmHg) O2 Sat by Pulse 97 94 96 Oximetry - Intake and Output Intake and Output: Intake & Output 08/14/17 08/15/17 08/16/17 08/17/17 11:59 11:59 11:59 11:59 Intake Total 200 620 Output Total 900 2750 Balance -700 -2130 Weight 269 lb 9.6 oz 263 lb 4.8 oz Intake: Oral 200 620 Output: Urine 900 2750 Other: Estimated Void Medium # Bowel Movements 0 0 # Voids 1 4 ADLs: Meal Record Start: 08/15/17 16: 39 Freq: DAILY@0900,1400,1800 Status: Active Protocol: Created 08/15/17 16:39 System (Rec: 08/15/17 16:39 System [id number]) Document 08/16/17 09:00 [id number] (Rec: 08/16/17 09:14 [id number] TELE-C11) Document 08/16/17 13:12 [id number] (Rec: 08/16/17 13:12 [id number] TELE-C11) Intake and Output Start: 08/15/17 16: 39 Freq: DAILY@0600,1400,2200 Status: Active Protocol: Created 08/15/17 16:39 System (Rec: 08/15/17 16:39 System [id number]) Document 08/15/17 21:47 [id number] (Rec: 08/15/17 21:48 [id number] TELE-C08) Document 08/16/17 05:45 [id number] (Rec: 08/16/17 05:45 [id number] TELE-C13) Document 08/16/17 06:37 [id number] (Rec: 08/16/17 06:37 [id number] TELE-C06) Document 08/16/17 14:00 [id number] (Rec: 08/16/17 15:14 [id number] TELE-C11) Document 08/16/17 22:00 [id number] (Rec: 08/16/17 22:19 [id number] TELE-C01) Document 08/17/17 05:56 [id number] (Rec: 08/17/17 05:57 [id number] TELE-C11) - Physical Exam General: No Cyanosis, No Anemia, No Jaundice, No Clubbing Lungs and Chest: Yes: Chest Expansion Full, Chest Expansion Symetrica, Vessicular Breath Sounds. No: Percussion Note Resonant - dull bases, Crackles, Wheezes, Respiratory Distress, Use of Accessory Muscles Heart Rate and Rhythm: Irregular Additional Cardiovascular: Yes: Normal Heart Sounds, Pedal Edema - trace. No: Heart Murmur Abdominal Exam: Yes: Rigidity. No: Distention, Abdominal Tenderness Results - Results Lab Results: Laboratory Results - last 24 hr 08/15/17 08/16/17 08/16/17 18:32 09:39 11:26 Sodium 131 L Potassium 4.9 Chloride 94 L Carbon Dioxide 29 Anion Gap 8 BUN 32 H Creatinine 1.38 H Est GFR ( Amer) 63.9 Est GFR (Non-Af Amer) 49.7 BUN/Creatinine Ratio 23.2 H Glucose 340 H POC Glucose (mg/dL) 320 H Hemoglobin A1c 7.3 H Calcium 9.9 Troponin I 0.03 C-Reactive Protein 17.08 H 08/16/17 08/16/17 08/16/17 17:59 18:11 22:52 Sodium Potassium Chloride Carbon Dioxide Anion Gap BUN Creatinine Est GFR ( Amer) Est GFR (Non-Af Amer) BUN/Creatinine Ratio Glucose 371 H POC Glucose (mg/dL) > 444 H* 305 H Hemoglobin A1c Calcium Troponin I C-Reactive Protein 08/17/17 08/17/17 04:58 08:46 Sodium 132 L Potassium 4.2 Chloride 96 L Carbon Dioxide 29 Anion Gap 7 BUN 36 H Creatinine 1.41 H Est GFR ( Amer) 62.4 Est GFR (Non-Af Amer) 48.5 BUN/Creatinine Ratio 25.5 H Glucose 273 H 461 H POC Glucose (mg/dL) Hemoglobin A1c Calcium 9.6 Troponin I C-Reactive Protein 39.28 H Assessment - Problem List Assessment: Patient Problems Acute dyspnea (Acute) Diastolic CHF (Acute) Pleural effusion due to congestive heart failure (Acute) Pulmonary edema cardiac cause (Acute) Troponin level elevated (Acute) Ventricular extrasystoles (Acute) Aortic stenosis (Chronic) Atrial septal defect (Chronic) Hypercholesteremia (Chronic) Left ventricular hypertrophy (Chronic) Mild mitral regurgitation (Chronic) Obesities, morbid (Chronic) Pulmonary nodule less than 6 cm determined by computed tomography of lung ( Chronic) Type 2 diabetes mellitus with neurological manifestations, 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 CHF - this is improved - his BUN and creatinine are increasing. I will manage this closely as an outpatient. He is ready for discharge 2. T2D out of control - he has marked hyperglycemia. This is because I stopped metformin, he hadn't received liraglutide and also because I reduced his total daily insulin as I was concerned he would develop hypoglycemia with the correct consistent carbohydrate diet. I have corrected this and he will go home on his usual regimen CHF education provided to the patient and his . He will follow at my office in 2 days.
[2017-08-17] MEDS ORDERED: Insulin LISPRO* 1 UNITS UNIT SUBCUT ONE (10:00)
[2017-08-17] MEDS ORDERED: Insulin GLARGINE(*) 1 UNITS UNIT SUBCUT SCH (12:00)
--- NOTE | 2017-08-17 15:42 | ECHO ---
Patient: ANJELICA WALTER [facility] Rec#: [id number] : 1940 Date: 08/17/2017 Age: 77y Height: 188 cm / 74.0 in Weight: 119.3 kg / 262.9 lbs Sex: M BSA: 2.44 Room#: 434 Admit Date#: 08/15/2017 Type: Inpatient Referring: Alexsandra Nolasco Reading: Tone Ernandez MD Sr. Payroll Manager: Alejandra Molina RN RDCS CC: Rajni Inman MD CC: Roque Arevalo MD Transthoracic Echocardiogram Indication: SOB, CHF BP: 113/51 HR: 76 Rhythm: NSR with PVCs Findings History: CAD, HTN, HLD, DM, aortic stenosis Technical Comments: The study is technically limited due to poor acoustic windows. The study is technically limited due to patient body habitus. Completed at 1330. Left Ventricle: The left ventricular chamber size is normal. Septal wall hypertrophy is observed. There is global hypokinesis of the left ventricle with minor regional variation. There is mildly decreased left ventricular systolic function. The estimated ejection fraction is 45-50%. closer to 45%. Abnormal left ventricular diastolic function is observed. The left ventricular diastolic filling pattern is consistent with pseudonormalization. Left Atrium: The left atrium is slightly dilated. Right Ventricle: The right ventricular cavity size is normal. The right ventricular global systolic function is normal. Right Atrium: The right atrium is slightly dilated. Aortic Valve: The aortic valve is trileaflet. The aortic valve leaflets are moderately thickened. Systolic excursion of the aortic valve cusps is reduced. There is no evidence of aortic regurgitation. There is moderate aortic stenosis.by continuity. Appears severe by 2d. Consider low gradient aortic stenosis. The mean gradient of the aortic valve is 10 mmHg. The peak instantaneous gradient of the aortic valve is 21 mmHg. The aortic valve area, by peak velocities, is calculated at 1.3 cm2. The aortic valve area, by VTI's, is calculated at 1.1 cm2. Highest aortic valve velocity was acquired with Pedoff in right sternal border position. Mitral Valve: Moderate mitral annular calcification present.with mild restriction of the posterior leaflet. The mitral valve leaflets are moderately thickened. Mitral valve anterior leaflet calcification is visualized. Mitral valve leaflet mobility is mildly restricted. Mild subvalvular thickening of the mitral valve is visualized.possible mobile chordae with focal thickening. There is moderate mitral regurgitation. There is borderline mitral stenosis. Tricuspid Valve: The tricuspid valve structure is not well visualized. There is trace to mild tricuspid regurgitation. Unable to estimate the right ventricular systolic pressure. There is no tricuspid stenosis. Pulmonic Valve: The pulmonic valve structure is not well visualized. There is a trace pulmonic regurgitation. There is no pulmonic stenosis. Pericardium: There is no significant pericardial effusion. A pericardial fat pad is visualized. Aorta: There is no dilatation of the ascending aorta. There is no dilatation of the aortic arch. There is no dilation of the aortic root. Pulmonary Artery: The main pulmonary artery is not well visualized. Venous: The venous system is not well visualized. The inferior vena cava is not visualized. Conclusions There is global hypokinesis of the left ventricle with minor regional variation. There is mildly decreased left ventricular systolic function. The estimated ejection fraction is 45-50%. closer to 45%. The left ventricular diastolic filling pattern is consistent with pseudonormalization. There is moderate aortic stenosis.by continuity. Aortic stenosis appears to be severe by 2d. Consider low gradient aortic stenosis. Mitral valve anterior leaflet calcification is visualized. Mitral valve leaflet mobility is mildly restricted. Mild subvalvular thickening of the mitral valve is visualized.possible mobile chordae with focal thickening. There is moderate mitral regurgitation. The prior study of 03/26/17 reported mild to moderate and trace MR and an EF of 50-55%. Today, the seems moderate to severe by 2d (similar KEYSHA by continuity), the MR is moderate, and the EF has decreased to 45-50%. Consider NINFA to better define the MR and the . Measurements Name Value Normal Range RVDdMajor (2D) 4 cm (2.2 - 4.4) RAd ISD 4CH 5.1 cm (3.4 - 4.9) RA (A4C)W 3.1 cm (2.9 - 4.6) IVSd (2D) 1.1 cm (0.6 - 1) LVPWd (2D) 1 cm (0.6 - 1) LVIDd (2D) 4.5 cm (3.6 - 5.4) LVIDs (2D) 3.5 cm - LV FS (2D) 22 % (25 - 45) Aortic Annulus 2 cm (1.4 - 2.6) Ao root diameter (2D) 3.2 cm (2.1 - 3.5) Ascending Ao 3.2 cm (2.1 - 3.4) Aortic arch 3 cm (1.8 - 3.4) LA dimension (AP) 2D 4.2 cm (2.3 - 3.8) LAd ISD 4CH 4.6 cm (2.9 - 5.3) LA ISD 4CH W 4.6 cm (2.5 - 4.5) Name Value Normal Range LA ESV SP 4CH (A/L) 45 ml - LA ESV SP 2CH (A/L) 72 ml - LA ESV BP (A/L) 65 ml - LA ESV BP (A/L) index 27 ml/m2 - LA ESV SP 4CH (MOD) 44 ml - LA ESV SP 2CH (MOD) 65 ml - Name Value Normal Range MV E-wave Vmax 1.3 m/sec - MV deceleration time 224 msec - MV A-wave Vmax 1.2 m/sec - MV E:A ratio 1 ratio - LV septal e' Vmax 0.06 m/sec - LV lateral e' Vmax 0.08 m/sec - LV E:e' septal ratio 21.7 ratio - LV E:e' lateral ratio 16.3 ratio - Name Value Normal Range AV Vmax 2.3 m/sec - AV VTI 53.5 cm - AV peak gradient 21 mmHg - AV mean gradient 10 mmHg - LVOT diameter 2 cm - LVOT Vmax 0.92 m/sec - LVOT VTI 18.5 cm - LVOT peak gradient 3.4 mmHg - LVOT mean gradient 1.9 mmHg - DOI (VTI) 0.35 ratio - DOI (Vmax) 0.4 ratio - SV LVOT 58.1 ml - CO LVOT 4.4 l/min - Cardiac index 1.8 l/min/m2 - KEYSHA (continuity Vmax) 1.3 cm2 - KEYSHA (continuity VTI) 1.1 cm2 - Name Value Normal Range MR Vmax 5.5 m/sec - MR VTI 157.4 cm - MR volume (PISA) 41 ml - MR flow (PISA) 140.67 ml/sec - MR ERO 0.26 cm2 - MR PISA radius 0.8 cm - MR alias Vmax 35 cm/sec - Name Value Normal Range PV Vmax 0.73 m/sec -
--- NOTE | 2017-08-18 05:19 | DS ---
DISCHARGE SUMMARY: DATE OF ADMISSION: 08/15/17 DATE OF DISCHARGE: 08/17/17 DISCHARGE DIAGNOSES: 1. Acute diastolic congestive cardiac failure with mild pulmonary edema and small pleural effusions. 2. 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 3. Comorbidities. 4. Troponin I levels subtly elevated. 5. Ventricular extra systole. SECONDARY DIAGNOSES: 1. Aortic stenosis. 2. Atrial septal defect. 3. Hypercholesterolemia. 4. Left ventricular hypertrophy secondary to hypertension. 5. Mild mitral regurgitation. 6. Morbid obesity. 7. Pulmonary nodule, less than 4 cm. 8. Type 2 diabetes with microvascular complications, neurological, and renal. 9. Stage 3 chronic renal disease. HISTORY: Julia Zamorano is a 77-year-old Syrian male, he has longstanding morbid obesity, severe metabolic syndrome, type 2 diabetes mellitus , and chronic diastolic dysfunction. His presentation is documented in Alexsandra Nolasco NP's admitting history and physical. In short, he had a 3-day history of increasing shortness of breath, declined, being taken to the emergency room until this became severe. In the emergency room, his BNP was 507 and his chest x-ray showed evidence of pulmonary edema. Examination: BP 117/46, temperature 97.6, heart rate 51, respirations 19. His breath sounds were diminished bilaterally. His heart sounds were normal, no murmurs. He had mild edema of the lower extremities with some discoloration. Small open wound in the posterior heel on the left foot, for which he goes to [facility]. INITIAL INVESTIGATIONS: White count 12.9, hemoglobin 13.2, hematocrit 40, platelets 268. Chemistry: Abnormals, anion gap 9, BUN 24, creatinine 1.27, glucose was 103, troponin I was 0.04 and second reading 0.05. EKG: Normal sinus rhythm, PVCs. Chest x-ray supported CHF. Initial impression: CHF, diastolic heart failure due to exacerbation. He was given diuretic therapy and sent for telemetry. He was placed upon insulin therapy. INVESTIGATIONS: I note that he had a similar admission 03/30/17. On that occasion, he had extensive cardiac evaluation. This included the following: A negative nuclear medicine and chemical stress test. A transthoracic echocardiogram, which showed an ejection fraction of 50% to 55% septal flattening of the LV septum. Abnormal left ventricular diastolic filling, mild concentric LVH. He had a CTA, which did not show any evidence of pulmonary embolism, but he was given education about CHF and was followed as an outpatient ; however, became increasingly noncompliant and resistant to any suggestions or help from his , Johnie. On this occasion, investigations, I chose not to repeat all investigations from his previous hospitalization. There was no evidence in my opinion of acute ischemia. I treated him with high-dose intravenous furosemide 80 mg twice daily. He had a diuretic response and lost at least 6 pounds. He also had a symptomatic response of the dyspnea on mild exertion, completely disappeared. Investigation: Chest CT scan on entry showed pulmonary interstitial edema, small pleural effusions, some several 0.4 cm pulmonary nodule. EKG was unchanged. On the day of discharge, he is feeling much better. He has had no paroxysmal nocturnal dyspnea. No dyspnea at rest without oxygen. His swelling of his legs is somewhat better. His blood sugar is super high as we have stopped his metformin and reduced the total dose of his insulin to prevent hypoglycemia, his insulin resistance appears to be more important than his poor diet. PHYSICAL EXAMINATION: Vital Signs: Temperature 98.5, heart rate 97, respirations 16, oxygen saturation 96% on room air, blood pressure 119/80. He has no cyanosis, anemia, jaundice, clubbing, or lymphadenopathy. He is warm and well perfused no acute distress. Cardiovascular Sys heartbeat, heart sounds were normal. No added sounds or murmurs. He has barely a trace of edema. Respiratory System: Chest expansion was symmetrical, percussion note dull bases, breath sounds diminished at the bases, but otherwise fascicular. No crackles or wheezes. Abdomen: Obese, no masses, tenderness, or organomegaly. INVESTIGATIONS ON THE DAY OF DISCHARGE: CBC: White count 11.5, hemoglobin 12.8 , hematocrit 39, platelets 261, percent neutrophils 79.5. Chemistry: Sodium 132, potassium 4.2, chloride 96. Other abnormals, BUN 36, creatinine 1.41, glucose 273. C-reactive protein 40. ASSESSMENT AND PLAN: 1. Acute diastolic congestive cardiac failure. Julia Zamorano is not compliant with the instructions we have been giving him after his last hospital stay. I have spoken to the patient in front of his , he will now weigh himself daily in his bedroom, so that his can write down the numbers. He will call my office if he gains more than 2 pounds in 24 hours. She will call us if she hears that he has wheezing or becoming more short of breath. He will have weekly visits to my office until we are sure that his documentation is correct. I have increased his diuretic regimen to furosemide 40 mg twice daily and spironolactone 25 mg a day. We will check his BMP frequently to prevent any hyperkalemia and also worsening prerenal azotemia. 2. Type 2 diabetes out of control. I have stopped his metformin for the moment as he has an exacerbation of congestive heart failure and I do not want to risk lactic acidosis. He will maintain his usual insulin which is 73/30, 60 units 3 times a day and liraglutide 1.2 mg daily. I discussed compliance with diet. 3. Hypertension. This is well-controlled. 4. Left heel ulcer. We will keep a close eye on this. 5. Dyslipidemia. Continue current medication. 6. Morbid obesity. This remains a long-term challenge. 7. Diabetic nephropathy. We will keep a close eye on his kidney function whilst stepping up the diuretic therapy. 8. Peripheral neuropathy. Long-term concern. 9. Noncompliance. This remains a major concern. We have enlisted the help of his , Johnie Zamorano, who will have permission to oversee his compliance. DISCHARGE MEDICATIONS: 1. Furosemide 40 mg p.o. b.i.d. 2. Spironolactone 25 mg daily. 3. Ramipril 5 mg daily. 4. 70/30 insulin 60 units t.i.d. 5. Liraglutide 1.2 mg daily. 6. Metoprolol 25 mg every other day. 7. Bactrim 1 tablet twice daily. 8. Simvastatin 40 mg q.h.s. [id number]/[facility] #: [id number] [facility] HOSPITALIsauro
[2017-08-18] MEDS ORDERED: Metoprolol Succinate XL TAB* 25 MG PO SCH (09:00)
== END 2017-08-17 14:14 | disposition home or self-care (01) ==
LOC: ED 12:26 → MEDTELE 15:26
PROVIDERS: ADMIT Internal Medicine; ATTEND Internal Medicine
DX: I50.31 Acute diastolic (congestive) heart failure (principal); R06.00 Dyspnea, unspecified; R06.02 Shortness of breath; R07.9 Chest pain, unspecified; J90 Pleural effusion, not elsewhere classified; J81.1 Chronic pulmonary edema; R79.89 Other specified abnormal findings of blood chemistry; I49.3 Ventricular premature depolarization; I35.0 Nonrheumatic aortic (valve) stenosis; Q21.1 Atrial septal defect; E78.00 Pure hypercholesterolemia, unspecified; I51.7 Cardiomegaly; I34.0 Nonrheumatic mitral (valve) insufficiency; R91.1 Solitary pulmonary nodule; N18.9 Chronic kidney disease, unspecified; E11.49 Type 2 diabetes mellitus with other diabetic neurological complication; E11.65 Type 2 diabetes mellitus with hyperglycemia; E11.29 Type 2 diabetes mellitus with other diabetic kidney complication; E66.01 Morbid (severe) obesity due to excess calories
CPT/HCPCS: 36415; 71046; 71250; 80048; 80053; 82947; 83036; 83880; 84484; 85025; 86140; 93005; 93306; 94760; 96374; 96375; 99284; A9270-GY; G0378; J1644; J1940

== ENCOUNTER 2018-10-03 03:08 | Inpatient (IN) | payer MEDICARE ==
[2018-10-03] MEDS ORDERED: NS 0.9% 1000 ML** 1,000 ML IV ONE (03:21)
--- NOTE | 2018-10-03 03:21 | ED ---
Complex/Multi-Sys Presentation - HPI Summary HPI Summary: An 78 y/o M brought in by ambulance presents to ED with c/o increasing weakness onset 3-4 days ago. Associated sx: decreased appetite, subjective fever. Denies vomiting/diarrhea, dysuria. He is able to drink. Pt also fell tonight when getting out of bed, he denies hurting himself and denies pain. He has not been recently ill. PMHx: DM, cardiac. Sees Dr. Inman, cardio. - History Of Current Complaint Hx Obtained From: Patient Onset/Duration: Gradual Onset, Lasting Days, Still Present Timing: Constant Severity Currently: Moderate Severity Initially: Moderate Associated Signs And Symptoms: Positive: Fever, Other - pos: decreased appetite ; neg: pain related to fall. Negative: Vomiting, Diarrhea, Dysuria - Allergies/Home Medications Allergies/Adverse Reactions: Allergies Allergy/AdvReac Type Severity Reaction Status Date / Time No Known Allergies Allergy Verified 08/15/17 11:25 PMH/Surg Hx/FS Hx/Imm Hx Previously Healthy: No Endocrine/Hematology History: Reports: Hx Diabetes Denies: Hx Anticoagulant Therapy, Hx Thyroid Disease, Hx Anemia Cardiovascular History: Reports: Hx Hypercholesterolemia, Hx Hypertension, Hx Myocardial Infarction, Other Cardiovascular Problems/Disorders - aortic stenosis , diastolic dysfunction Denies: Hx Angina, Hx Congestive Heart Failure, Hx Coronary Artery Disease, Hx Deep Vein Thrombosis, Hx Pacemaker/ICD, Hx Valvular Heart Disease Respiratory History: Reports: Hx Sleep Apnea Denies: Hx Asthma, Hx Chronic Obstructive Pulmonary Disease (COPD), Hx Lung Cancer, Hx Pneumonia, Hx Pulmonary Embolism GI History: Denies: Hx Gall Bladder Disease, Hx Gastrointestinal Bleed, Hx Jaundice, Hx Ulcer, Hx Urosepsis History: Denies: Hx Kidney Stones, Hx Renal Disease Musculoskeletal History: Reports: Hx Arthritis, Other Musculoskeletal History - LEFT KNEE PAIN R/T ATHRITIS Sensory History: Reports: Hx Cataracts - BILATERAL, Other Sensory Impairments - DECREASED SENSATION IN FEET AND LEGS Denies: Hx Contacts or Glasses, Hx Hearing Aid Opthamlomology History: Reports: Hx Cataracts - BILATERAL, Other Sensory Impairments - DECREASED SENSATION IN FEET AND LEGS Denies: Hx Contacts or Glasses Neurological History: Denies: Hx Dementia, Hx Headaches, Hx Migraine, Hx Seizures, Hx Transient Ischemic Attacks (TIA) Psychiatric History: Denies: Hx Anxiety, Hx Depression, Hx Panic Disorder, Hx Schizophrenia, Hx Bipolar Disorder - Surgical History Surgery Procedure, Year, and Place: 2008 LEFT GREAT TOE SURGERY [facility]. 01/2014 BILATERAL CATARACT [facility] Hx Anesthesia Reactions: No Infectious Disease History: Denies: Hx Clostridium Difficile, Hx Hepatitis, Hx Human Immunodeficiency Virus (HIV), Hx of Known/Suspected MRSA, Hx Shingles, Hx Tuberculosis, Hx Known/ Suspected VRE, Hx Known/Suspected VRSA, History Other Infectious Disease - Family History Known Family History: Positive: Cardiac Disease, Hypertension, Diabetes - Social History Occupation: Retired Lives: With Family Alcohol Use: None Hx Substance Use: No Substance Use Type: Reports: None Hx Tobacco Use: No Smoking Status (MU): Never Smoked Tobacco Have You Smoked in the Last Year: No Review of Systems Positive: Fever Positive: Other - pos: decreased appetite. Negative: Vomiting, Nausea Negative: dysuria Negative: Arthralgia, Myalgia Positive: Weakness All Other Systems Reviewed And Are Negative: Yes Physical Exam - Summary Physical Exam Summary: Appearance: Obese elderly male, Well-nourished, lying in bed comfortably in no acute distress Skin: Warm, dry, no obvious rash Eyes: sclera anicteric, no conjunctival pallor ENT: mucous membranes moist, pharynx appears normal Neck: Supple, nontender Respiratory: Clear to auscultation, no signs of respiratory distress Cardiovascular: Normal S1, S2. No murmurs. Normal distal pulses in tibial and radial bilaterally. Abdomen: Soft, nontender, normal active bowel sounds present Musculoskeletal: Normal, Strength/ROM Intact, Motor function in all 4 extremities is normal and symmetric. There is no rigidity or tremor noted. Neurological: A&Ox3, awake and alert, mentation is normal, speech is fluent and appropriate, Level of consciousness nml. The patient is alert and oriented. Cranial nerves are grossly intact. Gaze is conjugate and without nystagmus. Peripheral vision is intact to confrontation. There are no gross sensory abnormalities to light touch. There is no truncal or fine motor ataxia. Gait is normal. Psychiatric: affect is normal, does not appear anxious or depressed Triage Information Reviewed: Yes Vital Signs Reviewed: Yes - [place] Coma Scale Best Eye Response: 4 - Spontaneous Best Motor Response: 6 - Obeys Commands Best Verbal Response: 5 - Oriented Coma Scale Total: 15 Diagnostics - Laboratory Result Diagrams: 10/03/18 03:30 10/03/18 03:30 Lab Statement: Any lab studies that have been ordered have been reviewed, and results considered in the medical decision making process. - Radiology CXR Radiology Interpretation Completed By: ED Physician Summary of Radiographic Findings: No acute process. - CT BRAIN CT CT Interpretation Completed By: Radiologist Summary of CT Findings: IMPRESSION: 1. No acute intracranial findings. 2. Aspect score 10 out of 10 pneumonia both middle cerebral arteries. ED provider has reviewed this report. - EKG 0335 Cardiac Rate: NL - 79 bpm EKG Rhythm: Sinus Rhythm Summary of EKG Findings: LVH Re-Evaluation - Re-Evaluation First Eval Re-Evaluation Time: 07:00 Change: Unchanged - The patient has had a fairly extensive workup including CT of the head, chest x-ray, lab work, and urinalysis, without any significant abnormalities being identified. He does not appear to be suffering from recurrence of his congestive heart failure. His urinalysis does not show any evidence of infection. With respect to his metabolic panel, he does have a mild increase in his creatinine, as well as mild hyponatremia, but these do not require any acute treatment or hospitalization. He tells me that he has very limited mobility at home, but feels he is well enough to return home with his . At present, she is in the cafeteria, we will plan on discharging him to her care once she returns. He will need to demonstrate some limited mobility however. Complex Multi-Symp Course/Dx Course Of Treatment: Pt is an 78 y/o M presenting with increasing weakness, decreased appetite and subjective fever onset 3-4 days ago. Pt also fell tonight when getting out of bed, but denies injury and pain. He has not been recently ill. Critical lab values: troponin 0.04. EKG is NSR with LVH. Brain CT shows "1. No acute intracranial findings. 2. Aspect score 10 out of 10 pneumonia both middle cerebral arteries." CXR shows no acute process. Will patient out to Dr. Kim at shift change pending UA result and dispo. - Diagnoses Provider Diagnoses: Weakness, Unable to ambulate Discharge - Sign-Out/Discharge Documenting (check all that apply): Sign-Out Patient Signing out patient TO: Og Kim - pending UA/dispo Patient Received Moderate/Deep Sedation with Procedure: No - Discharge Plan Condition: Stable Disposition: ADMITTED TO [facility] - Billing Disposition and Condition Condition: STABLE Disposition: Admitted to [facility] - Attestation Statements Document Initiated by Shamir: Yes Documenting Scribe: Pina Kruse Provider For Whom Shamir is Documenting (Include Credential): Dr. Og Corona MD Scribe Attestation: Pina Arreola, scribed for Dr. Og Corona MD on 10/03/18 at 2353. Scribe Documentation Reviewed: Yes Provider Attestation: The documentation as recorded by the shamir, Pina Kruse accurately reflects the service I personally performed and the decisions made by me, Dr. Og Corona MD Status of Scribe Document: Viewed
--- OUTSIDE RECORDS SUMMARY | 2018-10-03 03:23 | XMS REPORT | Continuity of Care Document ---
:1940 External Reference #:[id number] Author Name Lindy Bautista Care Team Providers Name Role Phone Roque Arevalo MD Primary Care Physician Unavailable Payers Date Identification Numbers Payment Provider Subscriber Effective: 2013 Policy Number: [id number] Medicare Blue Ppo Julia Walter Group Number: [id number] [address] [id number] PayID: [id number] ChetnaLAMAR escamilla [id number] Advance Directives Description No Information Available Problems Date Description Provider Status Onset: 03/04/2016 Aortic valve disorder Rajni Inman M.D. Active Onset: 07/11/2016 Mitral valve disorder Rajni Inman M.D. Active Onset: 02/04/2017 Mixed hyperlipidemia Rajni Inman M.D. Active Onset: 05/06/2017 Chronic diastolic heart failure Rajni Inman M.D. Active Onset: 08/22/2017 Obstructive sleep apnea syndrome Luz Paz DNP, RN, Active [employer] Onset: 08/22/2017 Hypersomnia Luz Paz DNP, RN, Active [employer] Onset: 08/22/2017 Hypoxemia Luz Pza DNP, RN, Active [employer] Onset: 01/13/2018 Coronary artery atheroma Rajni Inman M.D. Active Family History Date Family Member(s) Observation Comments General Coronary Artery Disease (CAD) General Diabetes Type II Father Diabetes Type II Mother Diabetes Type II Siblings 5 3 brothers and 2 sisters Social History Type Date Description Comments Sex Unknown Marital Status Lives With Occupation Retired Tobacco Use Start: Unknown Never Smoked Cigarettes Smoking Status Reviewed: 09/25/18 Never Smoked Cigarettes ETOH Use Denies alcohol use Tobacco Use Start: Unknown Patient has never smoked Recreational Drug Use Denies Drug Use Exercise Type/Frequency Does not exercise Allergies, Adverse Reactions, Alerts Description No Known Drug Allergies Medications Medication Date Status Form Strength Qnty SIG Indications Ordering Provider Ramipril 09/25/ Active Capsules 2.5mg 90cap 1 by mouth Laura Kothari 2019 s every day Jimi N.PJose Oxygen 05/15/ Active Misc 2L 1unit Oxygen 2 L Rajni 2016 s nc with dangelo Inman M.D. Aspir-Low 01/09/ Active Tablets DR 81mg 1 by mouth , 2015 every day MD Roque Metoprolol 01/09/ Active Tablets ER 25mg 1 by mouth , Succinate ER 2015 24HR every day MD Roque Humulin 70/30 / Active Supn (70-30)10 inject 60 Unknown Kwikpen 0000 0Unit/ML units sub-q in the am, 60 units in the pm, and 60 units at hs or as directed by PCP Victoza / Active Solution 18mg/3ML inject 1.8 Unknown 0000 Pen-Inject milligrams under the skin every day Simvastatin / Active Tablets 40mg take 1 Unknown 0000 tablet by mouth at bedtime Glucagon / Active Kit 1mg use as Unknown Emergency 0000 directed Furosemide / Active Tablets 40mg 2 by mouth Unknown 0000 every day Spironolactone / Active Tablets 25mg 90tab 1 tabs qd Law, s MD Roque Ramipril / Hx Capsules 5mg 1/2 tab by Unknown 0000 - mouth every day 2019 Glucosamine / Hx Capsules 500mg 1 by mouth Unknown Sulfate 0000 - bid 2016 Fish Oil / Hx Capsules 1000mg 1 by mouth Unknown Concentrate 0000 - once a day 2017 Vitamin D / Hx Tablets 1000Unit 1 tablet by Unknown 0000 - mouth 06/12/ everyday 2016 Clindamycin HCL 00/ Hx Capsules 1 capsule Unknown 0000 - three times 03/05/ daily to 2015 finish February 2016. Keflex / Hx Capsules 500mg 1 by mouth Unknown 0000 - four times 04/18/ a day for 3 2015 days Metformin HCL / Hx Tablets 500mg 1 by mouth Unknown 0000 - twice a day 2017 Doxycycline / Hx Capsules 100mg one tablet Unknown Hyclate 0000 - twice daily 06/12/ for 4 days 2016 Vitamin C 00/ Hx Capsules 1 by mouth Unknown 0000 - every day 2017 Sulfamethoxazole / Hx Tablets 800-160 1 tab by Unknown -Trimethoprim 0000 - mouth twice day 2017 Medications Administered in Office Medication Date Status Form Strength Qnty SIG Indications Ordering Provider Inj, Administered Injection Etienne S. Regadenoson, 016 [place], DO 0.1 MG FACC Technetium TC Administered Injection Etienne S. 99M 016 Norris, DO Tetrofosmin, FACC Per Unit Dose Up To 40 Millicuries Technetium TC Administered Injection Rajni 99M 016 [place], Tetrofosmin, M.D. Per Unit Dose Up To 40 Millicuries Immunizations Description No Information Available Vital Signs Date Vital Result Comment 09/25/2018 2:22pm Height 74 inches 6'2" Weight 255.00 lb with shoes Heart Rate 60 /min BP Systolic Sitting 100 mmHg lue large cuff BP Diastolic Sitting 64 mmHg lue large cuff BP Systolic Standing 94 mmHg lue large cuff BP Diastolic Standing 64 mmHg lue large cuff Respiratory Rate 12 /min BMI (Body Mass Index) 32.7 kg/m2 Ejection Fraction 45-50% 04/21/2018 12:40pm Height 74 inches 6'2" Weight 265.00 lb Heart Rate 60 /min irregular rythm BP Systolic Sitting 100 mmHg left arm large cuff BP Diastolic Sitting 69 mmHg left arm large cuff Pain Level 0 O2 % BldC Oximetry 94 % BMI (Body Mass Index) 34.0 kg/m2 04/21/2018 12:36pm Heart Rate 60 /min irregular rythm BP Systolic Sitting 100 mmHg left arm large cuff BP Diastolic Sitting 64 mmHg left arm large cuff Respiratory Rate 16 /min Pain Level 0 01/23/2018 10:41am Height 74 inches 6'2" Weight 266.00 lb per pt, in wheelchair Heart Rate 70 /min BP Systolic Sitting 100 mmHg Rue large cuff BP Diastolic Sitting 54 mmHg Rue large cuff Respiratory Rate 16 /min O2 % BldC Oximetry 98 % On Ra BMI (Body Mass Index) 34.1 kg/m2 01/13/2018 8:54am Height 74 inches 6'2" Weight 265.75 lb with shoes Heart Rate 68 /min BP Systolic Sitting 108 mmHg Rue reg cuff BP Diastolic Sitting 60 mmHg Rue reg cuff Respiratory Rate 16 /min BMI (Body Mass Index) 34.1 kg/m2 Ejection Fraction 45-50% 08/17/2017-echo 11/06/2017 12:58pm Height 74 inches 6'2" Weight 265.25 lb with shoes Heart Rate 88 /min BP Systolic Sitting 120 mmHg Rue lrg cuff BP Diastolic Sitting 70 mmHg Rue lrg cuff Respiratory Rate 16 /min BMI (Body Mass Index) 34.1 kg/m2 Ejection Fraction 45-50% 08/17/2017-echo 10/21/2017 11:08am Height 74 inches 6'2" Weight 260.00 lb per pt Heart Rate 92 /min BP Systolic Sitting 110 mmHg Lue large cuff BP Diastolic Sitting 70 mmHg Lue large cuff O2 % BldC Oximetry 95 % On Ra BMI (Body Mass Index) 33.4 kg/m2 09/23/2017 10:07am Height 74 inches 6'2" Weight 260.00 lb per patient Heart Rate 66 /min BP Systolic Sitting 118 mmHg Lue lrg cuff BP Diastolic Sitting 68 mmHg Lue lrg cuff BP Systolic Standing 114 mmHg Lue lrg cuff BP Diastolic Standing 64 mmHg Lue lrg cuff Respiratory Rate 17 /min BMI (Body Mass Index) 33.4 kg/m2 Ejection Fraction 45-50% 08/17/2017-echo 09/02/2017 9:55am Height 74 inches 6'2" Weight 268.25 lb with shoes Heart Rate 64 /min BP Systolic Sitting 104 mmHg BP Diastolic Sitting 64 mmHg Respiratory Rate 16 /min BMI (Body Mass Index) 34.4 kg/m2 Ejection Fraction 45-50% 08/17/2017-echo 08/22/2017 10:19am Height 74 inches 6'2" Weight 257.00 lb Heart Rate 72 /min BP Systolic Sitting 108 mmHg BP Diastolic Sitting 64 mmHg Respiratory Rate 14 /min O2 % BldC Oximetry 99 % BMI (Body Mass Index) 33.0 kg/m2 06/13/2017 11:01am Height 74 inches 6'2" Weight 272.00 lb Heart Rate 88 /min BP Systolic Sitting 110 mmHg BP Diastolic Sitting 70 mmHg Respiratory Rate 14 /min O2 % BldC Oximetry 97 % BMI (Body Mass Index) 34.9 kg/m2 Neck Circumference in inches 19 05/20/2017 12:45pm Height 74 inches 6'2" Weight 277.00 lb with shoes Heart Rate 86 /min BP Systolic Sitting 114 mmHg Rue lrg cuff BP Diastolic Sitting 68 mmHg Rue lrg cuff BP Systolic Standing 126 mmHg Rue lrg cuff BP Diastolic Standing 74 mmHg Rue lrg cuff Respiratory Rate 17 /min BMI (Body Mass Index) 35.6 kg/m2 Ejection Fraction 50-55% 03/31/2017-echo 05/06/2017 3:47pm Height 74 inches 6'2" Weight 269.00 lb with shoes Heart Rate 88 /min BP Systolic Sitting 118 mmHg Rue lrg cuff BP Diastolic Sitting 74 mmHg Rue lrg cuff BP Systolic Standing 96 mmHg Rue lrg cuff BP Diastolic Standing 68 mmHg Rue lrg cuff Respiratory Rate 17 /min BMI (Body Mass Index) 34.5 kg/m2 Ejection Fraction 50-55% 03/31/2017-echo 02/04/2017 3:07pm Height 74 inches 6'2" Weight 281.00 lb with shoes Heart Rate 80 /min BP Systolic Sitting 106 mmHg Rue large cuff BP Diastolic Sitting 64 mmHg Rue large cuff BP Systolic Standing 100 mmHg Rue BP Diastolic Standing 62 mmHg Rue Respiratory Rate 16 /min BMI (Body Mass Index) 36.1 kg/m2 Ejection Fraction 50-55% 01/01/16 07/11/2016 2:13pm Height 74 inches 6'2" Weight 266.00 lb this morning home scale Heart Rate 88 /min BP Systolic Sitting 126 mmHg Rue reg cuff BP Diastolic Sitting 66 mmHg Rue reg cuff BP Systolic Standing 124 mmHg Rue reg cuff BP Diastolic Standing 66 mmHg Rue reg cuff Respiratory Rate 18 /min BMI (Body Mass Index) 34.1 kg/m2 Ejection Fraction 55-60% 02/08/2016 03/04/2016 2:34pm Height 74 inches 6'2" Weight 262.00 lb Heart Rate 90 /min BP Systolic Sitting 122 mmHg Ra lrg cuff BP Diastolic Sitting 64 mmHg Ra lrg cuff BP Systolic Standing 114 mmHg BP Diastolic Standing 60 mmHg Respiratory Rate 18 /min BMI (Body Mass Index) 33.6 kg/m2 Ejection Fraction 50-55% 12/31/14 02/06/2016 9:58am Height 74 inches 6'2" Weight 264.00 lb pt denied going on scale, gave weight from memory Heart Rate 82 /min BP Systolic Sitting 120 mmHg LA lg cuff BP Diastolic Sitting 50 mmHg LA lg cuff BP Systolic Standing 134 mmHg LA lg cuff BP Diastolic Standing 54 mmHg LA lg cuff BP Systolic Recheck 120 mmHg BP Diastolic Recheck 68 mmHg BMI (Body Mass Index) 33.9 kg/m2 Ejection Fraction 50-55% Echo 01/01/16 Results Test Date Facility Test Result H/L Range Note Lipid Panel - [facility] Creatine <pending> [facility] [address] Kinase(CK) [place] [address] [phone] Laboratory test [facility] Fructosamine 441 Abnormal 200 - 285 1 finding [address] mcmol/L [place], [place] [id number] [phone] Order [facility] Pulse Oximetry <pending> [address] With/[place] [address] Oxygen [phone] Lipid Panel - [facility] Creatine 48 U/L N 10-223 [facility] [address] Kinase(CK) [place] [address] [phone] Comp Metabolic [facility] Sodium 132 mmol/L Low 135- 145 Panel [address] [place] [address] [phone] Potassium 4.6 mmol/L N 3.5-5.0 Chloride 94 mmol/L Low 101-111 Co2 Carbon Dioxide 28 mmol/L N 22-32 Anion Gap 10 mmol/L N 2-11 Glucose 332 mg/dL High 70-100 Blood Urea Nitrogen 27 mg/dL High 6-24 Creatinine 1.50 mg/dL High 0.67-1.17 BUN/Creatinine Ratio 18.0 N 8-20 Calcium 9.5 mg/dL N 8.6-10.3 Total Protein 7.1 g/dL N 6.4-8.9 Albumin 3.9 g/dL N 3.2-5.2 Globulin 3.2 g/dL N 2-4 Albumin/Globulin Ratio 1.2 N 1-3 Total Bilirubin 0.40 mg/dL N 0.2-1.0 Alkaline Phosphatase 137 U/L High 34-104 Alt 12 U/L N 7-52 Ast 11 U/L Low 13-39 Egfr Non- 45.1 >60 Egfr 54.6 >60 2 Lipid Profile 01/13/2018 [facility] Triglycerides 198 mg/dL 3 (Trig/Chol/HDL) [address] [place] [address] [phone] Cholesterol 144 mg/dL 4 HDL Cholesterol 36.3 mg/dL 5 LDL Cholesterol 68 mg/dL 6 CBC Auto Diff 12/17/2017 [facility] White Blood 9.8 10^3/uL N 3.5-10.[address] [place] [address] [phone] Red Blood Count 4.08 10^6/uL N 4.00-5.40 Hemoglobin 13.1 g/dL Low 14.0-18.0 Hematocrit 39 % Low 42-52 Mean Corpuscular Volume 95 fL High 80-94 Mean Corpuscular Hemoglobin 32 pg High 27-31 Mean Corpuscular HGB Conc 34 g/dL N 31-36 Red Cell Distribution Width 13 % N 10.5-15 Platelet Count 222 10^3/uL N 150-450 Mean Platelet Volume 9.1 um3 N 7.4-10.4 Abs Neutrophils 7.1 10^3/uL N 1.5-7.7 Abs Lymphocytes 1.5 10^3/uL N 1.0-4.8 Abs Monocytes 0.8 10^3/uL N 0-0.8 Abs Eosinophils 0.4 10^3/uL N 0-0.6 Abs Basophils 0 10^3/uL N 0-0.2 Abs Nucleated RBC 0 10^3/uL Granulocyte % 72.1 % N 38-83 Lymphocyte % 15.5 % Low 25-47 Monocyte % 8.5 % High 0-7 Eosinophil % 3.6 % N 0-6 Basophil % 0.3 % N 0-2 Nucleated Red Blood Cells % 0 Comp Metabolic Panel 12/17/2017 [facility] Sodium 128 mmol/L Low 139-[address] [place] [address] [phone] Potassium 4.6 mmol/L N 3.5-5.0 Chloride 89 mmol/L Low 101-111 Co2 Carbon Dioxide 30 mmol/L N 22-32 Anion Gap 9 mmol/L N 2-11 Glucose 368 mg/dL High 70-100 Blood Urea Nitrogen 27 mg/dL High 6-24 Creatinine 1.44 mg/dL High 0.67-1.17 BUN/Creatinine Ratio 18.8 N 8-20 Calcium 9.7 mg/dL N 8.6-10.3 Total Protein 7.0 g/dL N 6.4-8.9 Albumin 3.8 g/dL N 3.2-5.2 Globulin 3.2 g/dL N 2-4 Albumin/Globulin Ratio 1.2 N 1-3 Total Bilirubin 0.60 mg/dL N 0.2-1.0 Alkaline Phosphatase 87 U/L N 34-104 Alt 13 U/L N 7-52 Ast 11 U/L Low 13-39 Egfr Non- 47.3 >60 Egfr 60.9 >60 7 Inr/Protime 12/17/2017 [facility] Inr 0.98 N 0.77-1.[address] [place] [address] [phone] Laboratory test 11/06/2017 [facility] B-Type 134 High [address] Natriuretic pg/[place] [address] Peptide BNP [phone] Basic Metabolic 11/06/2017 [facility] Sodium 132 Low 139-[address] mmol/[place] [address] [phone] Chloride 94 mmol/L Low 101-111 Co2 Carbon Dioxide 30 mmol/L N 22-32 Glucose 349 mg/dL High 70-100 Blood Urea Nitrogen 26 mg/dL High 6-24 Creatinine 1.60 mg/dL High 0.67-1.17 BUN/Creatinine Ratio 16.3 N 8-20 Calcium 10.0 mg/dL N 8.6-10.3 Egfr Non- 41.9 >60 Egfr 53.9 >60 9 Potassium 5.1 mmol/L High 3.5-5.0 Anion Gap 8 mmol/L N 2-11 Laboratory test 11/06/2017 [facility] Magnesium 2.0 mg/dL N 1.9-2.[address] [place] [address] [phone] Wound 09/25/2017 [facility] Wound/Misc SEE RESULT 10 Culture/Sensi [address] [place] [address] Stain [phone] Laboratory test 08/30/2017 [facility] B-Type 317 pg/mL High [address] [place] [address] Peptide BNP [phone] Basic Metabolic 08/30/2017 [facility] Sodium 131 mmol/L Low 133-[address] [place] [address] [phone] Potassium 4.8 mmol/L N 3.5-5.0 Chloride 98 mmol/L Low 101-111 Co2 Carbon Dioxide 26 mmol/L N 22-32 Anion Gap 7 mmol/L N 2-11 Glucose 149 mg/dL High 70-100 Blood Urea Nitrogen 35 mg/dL High 6-24 Creatinine 1.94 mg/dL High 0.67-1.17 BUN/Creatinine Ratio 18.0 N 8-20 Calcium 9.4 mg/dL N 8.6-10.3 Egfr Non- 33.5 >60 Egfr 43.1 >60 12 Basic Metabolic Panel 08/26/2017 [facility] Sodium 133 mmol/L N 133-[address] [place] [address] [phone] Chloride 98 mmol/L Low 101-111 Co2 Carbon Dioxide 26 mmol/L N 22-32 Glucose 89 mg/dL N 70-100 Blood Urea Nitrogen 46 mg/dL High 6-24 Creatinine 2.21 mg/dL High 0.67-1.17 BUN/Creatinine Ratio 20.8 High 8-20 Calcium 9.6 mg/dL N 8.6-10.3 Egfr Non- 28.9 >60 Egfr 37.1 >60 13 Potassium 5.2 mmol/L High 3.5-5.0 Anion Gap 9 mmol/L N 2-11 Wound 08/19/2017 [facility] Wound/Misc SEE RESULT 14 Culture/Sensi [address] [place] [address] Stain [phone] Wound 06/12/2017 [facility] Wound/Misc SEE RESULT 15, 16 Culture/Sensi [address] [place] [address] Stain [phone] Wound 05/15/2017 [facility] Wound/Misc SEE RESULT 17 Culture/Sensi [address] [place] [address] Stain [phone] Laboratory test 02/08/2016 [facility] Point of Care 78 mg/dL N 74-1 [address] Glucose 06 [place] [address] [phone] 1 Test Performed by: [address] [address] Because ethnic data is not always readily available, this report includes an eGFR for both -Americans and non- Americans. The National Kidney Disease Education Program (NKDEP) does not endorse the use of the MDRD equation for patients that are not between the ages of 18 and 70, are , have extremes of body size, muscle mass, or nutritional status, or are non- or non-. According to the National Kidney Foundation, irrespective of diagnosis, the stage of the disease is based on the level of kidney function: Stage Description GFR(mL/min/1.73 m(2)) 1 Kidney damage with normal or decreased GFR 90 2 Kidney damage with mild decrease in GFR 60-89 3 Moderate decrease in GFR 30-59 4 Severe decrease in GFR 15-29 5 Kidney failure <15 (or dialysis) 3 Desirable: <150 Borderline High: 150-199 High: 200-499 Very High: >500 4 Desirable: <200 Borderline High: 200-239 High: >239 5 Low: <40 Desirable: 40-60 High: >60 6 Desirable: <100 Near Optimal: 100-129 Borderline High: 130-159 High: 160-189 Very High: >189 7 Because ethnic data is not always readily available, this report includes an eGFR for both -Americans and non- Americans. The National Kidney Disease Education Program (NKDEP) does not endorse the use of the MDRD equation for patients that are not between the ages of 18 and 70, are , have extremes of body size, muscle mass, or nutritional status, or are non- or non-. According to the National Kidney Foundation, irrespective of diagnosis, the stage of the disease is based on the level of kidney function: Stage Description GFR(mL/min/1.73 m(2)) 1 Kidney damage with normal or decreased GFR 90 2 Kidney damage with mild decrease in GFR 60-89 3 Moderate decrease in GFR 30-59 4 Severe decrease in GFR 15-29 5 Kidney failure <15 (or dialysis) 8 >100 to <200 pg/mL: likely compensated congestive heart failure (CHF) 200 to 400 pg/mL: likely moderate CHF >400 pg/mL: likely moderate to severe CHF 9 Because ethnic data is not always readily available, this report includes an eGFR for both -Americans and non- Americans. The National Kidney Disease Education Program (NKDEP) does not endorse the use of the MDRD equation for patients that are not between the ages of 18 and 70, are , have extremes of body size, muscle mass, or nutritional status, or are non- or non-. According to the National Kidney Foundation, irrespective of diagnosis, the stage of the disease is based on the level of kidney function: Stage Description GFR(mL/min/1.73 m(2)) 1 Kidney damage with normal or decreased GFR 90 2 Kidney damage with mild decrease in GFR 60-89 3 Moderate decrease in GFR 30-59 4 Severe decrease in GFR 15-29 5 Kidney failure <15 (or dialysis) 10 SEE RESULT BELOW Name: JULIA WALTER : [address]: Jose Sanchez MD Acct: [id number] Unit: [id number] AGE: 77 Location: WOUND Re09/25/17 SEX: M Status: REG REF SPEC: [id number] JOHN: 09/25/[address] [facility] DR: Jose Sanchez MD REQ: [id number] RECD: 09/25/17 STATUS: COMP [facility] DR: Roque Arevalo MD _ SOURCE: LEG,LEFT SPDESC: ORDERED: Culture Stain QUERIES: Specimen Description LEFT LEG WOUND Procedure Result Reported Site Wound/Misc Gram Stain Final 09/25/17- 1742 ML 1+ Epithelial Cells No Neutrophils Observed No Organisms Seen Wound/Misc Culture Final 09/28/17- 0849 ML Organism 1 MRSA Quantity 1+ Organism 2 FINEGOLDIA MAGNA Quantity 1+ Organism 3 NORMAL ADI Quantity 1+ Anaerobic sensitivities are not routinely performed. Positive isolates will be saved for one week. Please call the Microbiology Laboratory if susceptibility testing is needed. MRSA-Consistent with previous results. 1. MRSA M.I.C. RX --------- ------ Penicillin >=0.5 R Clindamycin <=0.25 S Erythromycin <=0.25 S Gentamicin <=0.5 S Linezolid 2 S CONTINUED ON NEXT PAGE DEPARTMENT OF PATHOLOGY, [address] [place] [address] Leo Felton M.D. Director [facility] # [id number] Patient: JULIA WALTER [id number] (Continued) Specimen: [id number] Collected: 09/25/17 Received: 09/25/17 (Continued) Procedure Result Reported Site Wound/Misc Culture Final (continued) 09/28/17- 61 1. MRSA (continued) M.I.C. RX --------- ------ Oxacillin >=4 R * Quinupristin/Dalfopristin <=0.25 S Rifampin <=0.5 S Tetracycline >=16 R Trimethoprim/Sulfamethoxazole <=10 S Vancomycin 1 S Imipenem-Deduced R * Ampicillin/Sulbactam-Deduced R Cefazolin-Deduced R * These antibiotics are not available in the [facility] Formulary Contact the Microbiology Department for any additional antibiotic reporting. * ML - Main Lab . END OF REPORT DEPARTMENT OF PATHOLOGY, [address] [place] [address] Leo Felton M.D. Director [facility] # [id number] 11 >100 to <200 pg/mL: likely compensated congestive heart failure (CHF) 200 to 400 pg/mL: likely moderate CHF >400 pg/mL: likely moderate to severe CHF 12 Because ethnic data is not always readily available, this report includes an eGFR for both -Americans and non- Americans. The National Kidney Disease Education Program (NKDEP) does not endorse the use of the MDRD equation for patients that are not between the ages of 18 and 70, are , have extremes of body size, muscle mass, or nutritional status, or are non- or non-. According to the National Kidney Foundation, irrespective of diagnosis, the stage of the disease is based on the level of kidney function: Stage Description GFR(mL/min/1.73 m(2)) 1 Kidney damage with normal or decreased GFR 90 2 Kidney damage with mild decrease in GFR 60-89 3 Moderate decrease in GFR 30-59 4 Severe decrease in GFR 15-29 5 Kidney failure <15 (or dialysis) 13 Because ethnic data is not always readily available, this report includes an eGFR for both -Americans and non- Americans. The National Kidney Disease Education Program (NKDEP) does not endorse the use of the MDRD equation for patients that are not between the ages of 18 and 70, are , have extremes of body size, muscle mass, or nutritional status, or are non- or non-. According to the National Kidney Foundation, irrespective of diagnosis, the stage of the disease is based on the level of kidney function: Stage Description GFR(mL/min/1.73 m(2)) 1 Kidney damage with normal or decreased GFR 90 2 Kidney damage with mild decrease in GFR 60-89 3 Moderate decrease in GFR 30-59 4 Severe decrease in GFR 15-29 5 Kidney failure <15 (or dialysis) 14 SEE RESULT BELOW Name: JULIA WALTER : [address]: Jose Sanchez MD Acct: [id number] Unit: [id number] AGE: 77 Location: WOUND Re08/19/17 SEX: M Status: REG REF SPEC: [id number] JOHN: 08/19/17-[address] [facility] DR: Jose Sanchez MD REQ: [id number] RECD: 08/19/17 STATUS: [facility] DR: Roque Arevalo MD _ SOURCE: FOOT,RIGHT SPDESC: ORDERED: Culture Stain COMMENTS: MRSA: Consistent with previous results. QUERIES: Specimen Description RIGHT HEEL Procedure Result Reported Site Wound/Misc Gram Stain Final 08/19/17- 1554 ML 1+ Epithelial Cells No Neutrophils Observed 1+ Gram Positive Cocci Wound/Misc Culture Final 08/21/17- 1439 ML Organism 1 MRSA Quantity 3+ 1. MRSA M.I.C. RX --------- ------ Penicillin >=0.5 R Clindamycin <=0.25 S Erythromycin <=0.25 S Gentamicin <=0.5 S Linezolid 2 S Nitrofurantoin <=16 S Oxacillin >=4 R * Quinupristin/Dalfopristin <=0.25 S Rifampin <=0.5 S Tetracycline >=16 R Trimethoprim/Sulfamethoxazole <=10 S Vancomycin 1 S Imipenem-Deduced R * Ampicillin/Sulbactam-Deduced R CONTINUED ON NEXT PAGE * ML=Testing performed at Main Lab DEPARTMENT OF PATHOLOGY, [address] [place] [address] Leo Felton M.D. Director [facility] # [id number] Patient: JULIA WALTER [id number] (Continued) Specimen: [id number] Collected: 08/19/17 Received: 08/19/17 (Continued) Procedure Result Reported Site Wound/Misc Culture Final (continued) 08/21/171438 1. MRSA (continued) M.I.C. RX --------- ------ Cefazolin-Deduced R * These antibiotics are not available in the [facility] Formulary Contact the Microbiology Department for any additional antibiotic reporting. * ML - MAIN LAB (PSC1) . END OF REPORT * ML=Testing performed at Main Lab DEPARTMENT OF PATHOLOGY, [address] [place] [address] Leo Felton M.D. Director [facility] # [id number] SOURCE: LEFT LOWER LEG 16 SEE RESULT BELOW Name: JULIA WALTER : [address]: Jose Sanchez MD Acct: [id number] Unit: [id number] AGE: 76 Location: WOUND Re06/12/17 SEX: M Status: REG REF SPEC: [id number] JOHN: 06/12/17-[address] [facility] DR: Jose Sanchez MD REQ: [id number] RECD: 06/12/17 STATUS: [facility] DR: Roque Arevalo MD _ SOURCE: [facility] SPDESC:LEFT LEG ORDERED: Culture Stain COMMENTS: SOURCE: LEFT LOWER LEG Procedure Result Reported Site Wound/Misc Gram Stain Final 06/13/17- 0729 ML No Neutrophils Observed 1+ Epithelial Cells No Organisms Seen Wound/Misc Culture Final 06/15/17- 1056 ML Organism 1 STREP AGALACTIAE - (GROUP B) Quantity 1+ Organism 2 MRSA Quantity 1+ Consistent with previous results. 1. STREP AGALACTIAE - (GROUP B) M.I.C. RX --------- ------ Ampicillin <=0.25 S Penicillin <=0.12 S Clindamycin S Levofloxacin 1 S Linezolid 2 S * Moxifloxacin <=0.25 S * Quinupristin/Dalfopristin <=0.25 S Tetracycline >=16 R Tigecycline <=0.12 S Vancomycin <=0.5 S Imipenem-Deduced S CONTINUED ON NEXT PAGE * ML=Testing performed at Main Lab DEPARTMENT OF PATHOLOGY, [address] [place] [address] Leo Felton M.D. Director [facility] # [id number] Patient: ARICJULIA [id number] (Continued) Specimen: [id number] Collected: 06/12/17 Received: 06/12/17 (Continued) Procedure Result Reported Site Wound/Misc Culture Final (continued) 06/15/17- 1055 1. STREP AGALACTIAE - (GROUP B) (continued) M.I.C. RX --------- ------ * Ampicillin/Sulbactam-Deduced S Cefazolin-Deduced S 2. MRSA M.I.C. RX --------- ------ Penicillin >=0.5 R Clindamycin >=8 R Erythromycin >=8 R Gentamicin <=0.5 S Linezolid 2 S Nitrofurantoin <=16 S Oxacillin >=4 R * Quinupristin/Dalfopristin 0.5 S Rifampin <=0.5 S Tetracycline >=16 R Trimethoprim/Sulfamethoxazole <=10 S Vancomycin <=0.5 S Imipenem-Deduced R * Ampicillin/Sulbactam-Deduced R Cefazolin-Deduced R * These antibiotics are not available in the [facility] Formulary Contact the Microbiology Department for any additional antibiotic reporting. * ML - MAIN LAB ([facility]) . END OF REPORT * ML=Testing performed at Main Lab DEPARTMENT OF PATHOLOGY, [address] [place] [address] Leo Felton M.D. Director [facility] # [id number] 17 SEE RESULT BELOW Name: JULIA WALTER : [address]: Jose Sanchez MD Acct: [id number] Unit: [id number] AGE: 76 Location: WOUND Re05/15/17 SEX: M Status: REG REF SPEC: [id number] JOHN: 05/15/17-[address] [facility] DR: Jose Sanchez MD REQ: [id number] RECD: 05/15/17 STATUS: [facility] DR: Roque Arevalo MD _ SOURCE: LEG,LEFT SPDESC: ORDERED: Culture Stain QUERIES: Specimen Description VENOUS ULCER L LATERAL DISTAL Procedure Result Reported Site Wound/Misc Gram Stain Final 05/15/17- 1354 ML 1+ Epithelial Cells 1+ Neutrophils 1+ Gram Positive Cocci Wound/Misc Culture Final 05/18/17- 1049 ML Organism 1 MRSA Quantity 2+ Organism 2 STREP AGALACTIAE - (GROUP B) Quantity 2+ 1. MRSA M.I.C. RX --------- ------ Penicillin >=0.5 R Clindamycin <=0.25 S Erythromycin <=0.25 S Gentamicin <=0.5 S Linezolid 4 S Nitrofurantoin <=16 S Oxacillin >=4 R * Quinupristin/Dalfopristin <=0.25 S Rifampin <=0.5 S Tetracycline >=16 R Trimethoprim/Sulfamethoxazole <=10 S Vancomycin 1 S Imipenem-Deduced R CONTINUED ON NEXT PAGE * ML=Testing performed at Main Lab DEPARTMENT OF PATHOLOGY, [address] [place] [address] Leo Felton M.D. Director [facility] # [id number] Patient: JULIA WALTER [id number] (Continued) Specimen: [id number] Collected: 05/15/17 Received: 05/15/17 (Continued) Procedure Result Reported Site Wound/Misc Culture Final (continued) 05/18/171048 1. MRSA (continued) M.I.C. RX --------- ------ * Ampicillin/Sulbactam-Deduced R Cefazolin-Deduced R 2. STREP AGALACTIAE - (GROUP B) M.I.C. RX --------- ------ Ampicillin <=0.25 S Penicillin <=0.12 S Clindamycin S Levofloxacin 1 S Linezolid 2 S * Moxifloxacin <=0.25 S * Quinupristin/Dalfopristin <=0.25 S Tetracycline >=16 R Tigecycline <=0.12 S Vancomycin <=0.5 S Imipenem-Deduced S * Ampicillin/Sulbactam-Deduced S Cefazolin-Deduced S * These antibiotics are not available in the [facility] Formulary Contact the Microbiology Department for any additional antibiotic reporting. * ML - MAIN LAB ([facility]) . END OF REPORT * ML=Testing performed at Main Lab DEPARTMENT OF PATHOLOGY, [address] [place] [address] Leo Felton M.D. Director [facility] # [id number] 18 Syrup Mixer Assistant: [id number] MARGY MILLER Procedures Date Code Description Status 09/25/2018 30841 EKG Tracing & Interpretation Completed 06/04/2018 29384 Removal Devitalization Tissue Wound Less Than Equal 20 Completed Square CM 11/06/2017 76806 Removal Devitalization Tissue Wound Less Than Equal 20 Completed Square CM 10/21/2017 50075 Removal Devitalization Tissue Wound Less Than Equal 20 Completed Square CM 10/16/2017 36711 Removal Devitalization Tissue Wound Less Than Equal 20 Completed Square CM 10/09/2017 16543 Removal Devitalization Tissue Wound Less Than Equal 20 Completed Square CM 10/02/2017 03375 Removal Devitalization Tissue Wound Less Than Equal 20 Completed Square CM 09/25/2017 71065 Removal Devitalization Tissue Wound Less Than Equal 20 Completed Square CM 09/17/2017 83264 Moderate Sedation Services; Same Phys Intl 15 Mins; PT >=5 Completed Years 09/17/2017 45715 Color Flow Doppler/Interp & Reprt Completed 09/17/2017 07541 Pulse Wave/Continuous-Interp.RPT Completed 09/17/2017 88768 Echocardiography, Transesophageal, Real Time W/Image 2D Completed W/W/O M-M 09/16/2017 73189 Removal Devitalization Tissue Wound Less Than Equal 20 Completed Square 09/09/2017 07450 Removal Devitalization Tissue Wound Less Than Equal 20 Completed Square 09/02/2017 75099 EKG Tracing & Interpretation Completed 09/02/2017 10828 Removal Devitalization Tissue Wound Less Than Equal 20 Completed Square 08/26/2017 76300 Removal Devitalization Tissue Wound Less Than Equal 20 Completed Square 08/19/2017 63488 Removal Devitalization Tissue Wound Less Than Equal 20 Completed [facility] 08/17/2017 26189 ECHO Transthorasic Realtime 2D W Doppler & Color Flow Hosp Completed 08/16/2017 63177 EKG, Interpretation Only Completed 07/17/2017 73409 Removal Devitalization Tissue Wound Less Than Equal 20 Completed Square 06/26/2017 47310 Removal Devitalization Tissue Wound Less Than Equal 20 Completed Square 06/19/2017 40070 Removal Devitalization Tissue Wound Less Than Equal 20 Completed Square 06/18/2017 40241 Sleep Study Unattended,HRT Rate,Oxygen Sat,Resp Completed Effort/Airflow 06/12/2017 65155 Removal Devitalization Tissue Wound Less Than Equal 20 Completed Square 06/05/2017 41276 Removal Devitalization Tissue Wound Less Than Equal 20 Completed Square 05/22/2017 31194 Removal Devitalization Tissue Wound Less Than Equal 20 Completed Square 05/15/2017 68912 Removal Devitalization Tissue Wound Less Than Equal 20 Completed Square 05/08/2017 29164 Removal Devitalization Tissue Wound Less Than Equal 20 Completed Square 05/06/2017 28219 EKG Tracing & Interpretation Completed 05/01/2017 74974 Removal Devitalization Tissue Wound Less Than Equal 20 Completed Square 04/24/2017 25505 Removal Devitalization Tissue Wound Less Than Equal 20 Completed Square 04/17/2017 88211 Removal Devitalization Tissue Wound Less Than Equal 20 Completed Square 04/10/2017 85898 Removal Devitalization Tissue Wound Less Than Equal 20 Completed Square 04/01/2017 79214 Treadmill Interp/Report Only Completed 04/01/2017 96309 Stress Test Supervsn W/Out I/R Completed 03/31/2017 86353 ECHO Transthorasic Realtime 2D W Doppler & Color Flow Hosp Completed 02/04/2017 29598 EKG Tracing & Interpretation Completed 10/29/2016 67203 Removal Devitalization Tissue Wound Less Than Equal 20 Completed Square CM 02/21/2016 51333 Stress Test Completed 02/21/2016 47607 Myocardial Perfusion Imaging Tomographic (Spect) Multiple Completed Studies 02/08/2016 46036 Echocardiography, Transesophageal, Real Time W/Image 2D Completed W/W/O M-M 02/08/2016 42041 Pulse Wave/Continuous-Interp.RPT Completed 02/08/2016 12532 Color Flow Doppler/Interp & Reprt Completed 02/06/2016 97586 EKG Tracing & Interpretation Completed 01/09/2016 65821 Removal Devitalization Tissue Wound Less Than Equal 20 Completed Square CM 01/03/2016 85316 Treadmill Interp/Report Only Completed 01/03/2016 70498 Stress Test Supervsn W/Out I/R Completed 01/01/2016 79588 ECHO Transthorasic Realtime 2D W Doppler & Color Flow Hosp Completed 01/01/2016 24396 EKG, Interpretation Only Completed 12/31/2015 48788 EKG, Interpretation Only Completed 12/19/2015 04386 Removal Devitalization Tissue Wound Less Than Equal 20 Completed Square CM 12/12/2015 41016 Removal Devitalized Tissue Wound Greater Than 20 Square CM Completed 12/12/2015 45912 Removal Devitalization Tissue Wound Less Than Equal 20 Completed Square CM 11/28/2015 92030 Removal Devitalization Tissue Wound Less Than Equal 20 Completed Square CM 01/17/2014 40103 ECHO Transthoracic, Real-Time 2D With Doppler And Color Completed Flow Encounters Type Date Location Provider Dx Diagnosis Office Visit 06/18/2018 Wound Care Jose Dunham E11.9 Type 2 diabetes 2:30p Center AT [facility] Dennys Sanchez mellitus without complications I89.0 Lymphedema, not elsewhere classified Z86.14 Personal history of methicillin resis staph infection Office Visit 06/11/2018 2:00p Wound Care Jose Dunham L97.412 Non-prs chr Center AT [facility] Dennys Sanchez ulcer of right heel and midft w fat layer expos E11.621 Type 2 diabetes mellitus with foot ulcer I89.0 Lymphedema, not elsewhere classified Z86.14 Personal history of methicillin resis staph infection Office Visit 05/21/2018 2:15p Wound Care Jose Dunham L97.412 Non-prs chr Center AT [facility] Dennys Sanchez ulcer of right heel and midft w fat layer expos E11.621 Type 2 diabetes mellitus with foot ulcer I89.0 Lymphedema, not elsewhere classified Z86.14 Personal history of methicillin resis staph infection Office Visit 04/21/2018 12:15p [facility] Rajni Inman, 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 G47.33 Obstructive sleep apnea (adult) (pediatric) E11.8 Type 2 diabetes mellitus with unspecified complications I34.0 Nonrheumatic mitral (valve) insufficiency I35.0 Nonrheumatic aortic (valve) stenosis R60.0 Localized edema E78.2 Mixed hyperlipidemia Office Visit 01/23/2018 Pulmonology And Luz G47.33 Obstructive sleep 11:00a Sleep Services Of ESTEFANY Paz, RN, apnea (adult) [facility] WEB OPERATIONS LEAD-BC (pediatric) 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 R09.02 Hypoxemia Office Visit 01/13/2018 9:00a [facility] Rajni Inman, I25.10 [facility] Broderick Noyola disease of [place] coronary artery w/o ang pctrs I34.0 Nonrheumatic mitral (valve) insufficiency E11.8 Type 2 diabetes mellitus with unspecified complications R09.02 Hypoxemia E78.2 Mixed hyperlipidemia R60.0 Localized edema Office Visit 11/27/2017 3:00p Wound Care Jose Dunham L89.612 Pressure ulcer Center AT [facility] Dennys Sanchez of right heel, stage 2 E11.621 Type 2 diabetes mellitus with foot ulcer 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 classd elswhr 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 E11.9 Type 2 diabetes mellitus without complications Office Visit 11/06/2017 1:00p [place] Rajni Inman, I34.0 Nonrheumatic mitral Cardiology Germania Noyola (valve) Graphics Editor insufficiency I35.0 Nonrheumatic aortic (valve) stenosis I50.42 Chronic combined systolic and diastolic hrt fail R35.1 Nocturia I89.0 Lymphedema, not elsewhere classified Office Visit 10/21/2017 Pulmonology And Luz G47.33 Obstructive sleep 11:00a [facility] ESTEFANY Paz RN, apnea (adult) [facility] AMILCAR (pediatric) 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 Office Visit 09/23/2017 10:30a [place] [place] Rajni Inman, I34.0 Nonrheumatic mitral Cardiology Germania Noyola (valve) [facility] insufficiency I35.0 Nonrheumatic aortic (valve) stenosis I50.42 Chronic combined systolic and diastolic hrt fail Office Visit 09/02/2017 10:00a [facility] Rajni Inman, I35.0 Nonrheumatic Of Syed Noyola aortic (valve) stenosis R35.1 Nocturia I50.32 Chronic diastolic (congestive) heart failure E11.8 Type 2 diabetes mellitus with unspecified complications G47.33 Obstructive sleep apnea (adult) (pediatric) Office Visit 08/22/2017 Pulmonology And Luz G47.33 Obstructive sleep 11:00a [facility] ESTEFANY Paz RN, apnea (adult) [facility] 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 R09.02 Hypoxemia Office Visit 08/19/2017 12:45p Wound Care Jose Nielson89.612 Pressure ulcer Center AT [facility] Dennys Sanchez of right heel, stage 2 E11.621 Type 2 diabetes mellitus with foot ulcer Z86.14 Personal history of methicillin resis staph infection I89.0 Lymphedema, not elsewhere classified Office Visit 08/15/2017 [facility] I50.33 Acute on chronic 3:27p Assoc,pc Constance, KAVIN diastolic Hospitalists (congestive) heart failure 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 I10 Essential (primary) hypertension Office Visit 06/13/2017 11:00a [facility] Angeline Viera, R09.02 Hypoxemia Services Of [facility] R40.0 Somnolence R35.1 Nocturia E66.01 Morbid (severe) obesity due to excess calories Z68.34 Body mass index (BMI) 34.0-34.9, adult Office Visit 05/20/2017 1:00p [facility] Of MOUNA Payne R09.02 Hypoxemia Graphics Editor I50.32 Chronic diastolic (congestive) heart failure Office Visit 05/06/2017 4:00p [place] Rajni Inman I50.32 Chronic diastolic Cardiology Of M.DJose (congestive) heart Graphics Editor failure I35.0 Nonrheumatic aortic (valve) stenosis E11.621 Type 2 diabetes mellitus with foot ulcer R06.01 Orthopnea R60.0 Localized edema G47.9 Sleep disorder, unspecified Office Visit 04/01/2017 3:32p [facility] Keyon Rodgers R06.02 Shortness of Of Syed Durand M.D. breath I50.9 Heart failure, unspecified Office Visit 03/31/2017 3:34p [facility] Keyon Rodgers I50.9 Heart failure, Of Syed Durand M.D. 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 Office Visit 02/04/2017 3:15p [facility] Rajni Inman I35.0 Nonrheumatic Of Syed Noyola aortic (valve) stenosis Q21.1 Atrial septal defect I87.2 Venous insufficiency (chronic) (peripheral) E78.2 Mixed hyperlipidemia Office Visit 11/26/2016 10:40a Wound Care Jose Dunham S91.201A Unsp open Center AT [facility] Dennys Sanchez wound of right great toe w damage to nail, init E11.621 Type 2 diabetes mellitus with foot ulcer I89.0 Lymphedema, not elsewhere classified Office Visit 11/12/2016 4:48p Wound Care Jose Dunham S91.201A [facility] open Center AT [facility] Dennys Sanchez wound of right great toe w damage to nail, init E11.621 Type 2 diabetes mellitus with foot ulcer Office Visit 07/11/2016 2:15p [facility] Rajni [place], I35.0 Nonrheumatic Of Graphics Editor M.D. 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 unspecified organism R94.39 Abnormal result of other cardiovascular function study Office Visit 02/01/2016 12:35p Wound Care Jose Arreola87.313 Chronic venous Center AT [facility] Dennys Sanchez hypertension w ulcer of bilateral low extrm E11.622 Type 2 diabetes mellitus with other skin ulcer 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 L97.211 Non-prs chronic ulcer of right calf limited to brkdwn skin Office Visit 01/29/2016 1:57p [facility] Jerardo Rodgers L03.116 Cellulitis of For Ramon Merritt M.D. left lower limb Diseases E10.51 Type 1 diabetes w diabetic peripheral angiopath w/o gangrene E10.628 Type 1 diabetes mellitus with other skin complications I89.0 Lymphedema, not elsewhere classified Office Visit 01/25/2016 3:26p Wound Javier Arreola87.313 Chronic venous Center AT [facility] Dennys Sanchez hypertension w ulcer of bilateral low extrm E11.622 Type 2 diabetes mellitus with other skin ulcer 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 L97.211 Non-prs chronic ulcer of right calf limited to brkdwn skin Office Visit 01/03/2016 [place] [place] Rajni Inman R94.39 Abnormal result of 10:55a Cardiology Of Dionisio.Ana Maria other cardiovascular [facility] function study R79.89 Other specified abnormal findings of blood chemistry I35.0 Nonrheumatic aortic (valve) stenosis Office Visit 12/05/2015 10:59a Wound Care Jose Arreola87.313 Chronic venous Center AT [facility] Dennys Sanchez hypertension w ulcer of bilateral low extrm E11.622 Type 2 diabetes mellitus with other skin ulcer 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 L97.211 Non-prs chronic ulcer of right calf limited to brkdwn skin Office Visit 11/28/2015 12:02p Wound Care Jose Rosario.313 Chronic venous Center AT [facility] Dennys Sanchez hypertension w ulcer of bilateral low extrm E11.622 Type 2 diabetes mellitus with other skin ulcer 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 L97.211 Non-prs chronic ulcer of right calf limited to brkdwn skin Plan of Treatment Future Appointment(s):12/11/2018 3:30 pm - Rajni Inman M.D. at [facility]10/08/2018 3:30 pm - Nurse Visit IC at [facility]10/08/2018 2:30 pm - Traveling ECHO 1 at [facility]09/25/2018 - Laura Krause N.PJoseI25.10 Atherosclerotic heart disease of [place] coronary artery withI50.42 Chronic combined systolic (congestive) and diastolic ( congesFollow up:BP check 2weeks NV OV LS 3moRecommendations:Fluid status looks good. Continue Lasix and Spironolactone BP is a little low; decrease ramipril to2.5mg qlxzeW08.8 Type 2 diabetes mellitus with unspecified gdprkksxetedqT39.33 Obstructive sleep apnea (adult) (pediatric)I34.0 Nonrheumatic mitral (valve) insufficiencyNew Orders:Echocardiogram, Ordered:
[2018-10-03 03:36] LABS: ABS Basophils 0 10^3/ul (0-0.2); ABS Eosinophils 0.1 10^3/ul (0-0.6); ABS Lymphocytes 1.2 10^3/ul (1.0-4.8); ABS Monocytes 1.2 10^3/ul (0-0.8); ABS Neutrophils 6.4 10^3/ul (1.5-7.7); ABS Nucleated RBC 0 10^3/ul; Eosinophil % 0.8 %; Hematocrit 39 % (36-46); Hemoglobin 13.4 g/dL (14.0-18.0); Lymphocyte % 13.3 %; Mean Corpuscular HGB Conc 34 g/dL (31-36); Mean Corpuscular Hemoglobin 32 pg (27-31); Mean Corpuscular Volume 91 fL (80-94); Mean Platelet Volume 8.5 fL (7.4-10.4); Nucleated Red Blood Cells % 0; Platelet Count 234 10^3/uL (150-450); Red Blood Count 4.27 10^6 /uL (4.18-5.48); Red Cell Distribution Width 14 % (10.5-15); White Blood Count 8.9 10^3/uL (3.5-10.8)
[2018-10-03 03:53] LABS: ALT 13 U/L (7-52); AST 16 U/L (13-39); Albumin 3.9 g/dL (3.2-5.2); Albumin/Globulin Ratio 1.1 (1-3); Alkaline Phosphatase 85 U/L (34-104); Anion Gap 10 mmol/L (2-11); BUN/Creatinine Ratio 17.4 (8-20); Blood Urea Nitrogen 38 mg/dL (6-24); CO2 Carbon Dioxide 26 mmol/L (22-32); Calcium 9.4 mg/dL (8.6-10.3); Chloride 93 mmol/L (101-111); EGFR African American 35.2 (>60); EGFR Non-African American 29.1 (>60); Globulin 3.6 g/dL (2-4); Glucose 323 mg/dL (70-100); Magnesium 2.1 mg/dL (1.9-2.7); Potassium 4.7 mmol/L (3.5-5.0); Sodium 129 mmol/L (135-145); Total Protein 7.5 g/dL (6.4-8.9)
[2018-10-03 03:56] LABS: Troponin I 0.04 ng/mL (<0.04)
[2018-10-03 04:47] LABS: TSH (Thyroid Stimulating Horm) 2.96 mcIU/mL (0.34-5.60)
[2018-10-03 06:57] LABS: Urine Appearance Clear; Urine Bilirubin Negative (Negative); Urine Blood Negative (Negative); Urine Color Yellow; Urine Glucose 2+(150 mg/dL) (Negative); Urine Ketones Trace (Negative); Urine Nitrite Negative (Negative); Urine Protein Negative (Negative); Urine Specific Gravity 1.011 (1.010-1.030); Urine Urobilinogen Negative (Negative)
--- NOTE | 2018-10-03 09:33 | ED ---
Progress - Progress Note Progress Note: Pt is an 78 y/o M presenting with increasing weakness, decreased appetite and subjective fever onset 3-4 days ago. Pt also fell tonight when getting out of bed, but denies injury and pain. He has not been recently ill. Re-Evaluation - Re-Evaluation First Eval Re-Evaluation Time: 07:00 Change: Unchanged - The patient has had a fairly extensive workup including CT of the head, chest x-ray, lab work, and urinalysis, without any significant abnormalities being identified. He does not appear to be suffering from recurrence of his congestive heart failure. His urinalysis does not show any evidence of infection. With respect to his metabolic panel, he does have a mild increase in his creatinine, as well as mild hyponatremia, but these do not require any acute treatment or hospitalization. He tells me that he has very limited mobility at home, but feels he is well enough to return home with his . At present, she is in the cafeteria, we will plan on discharging him to her care once she returns. He will need to demonstrate some limited mobility however. Course/Dx - Course Course Of Treatment: Mr. Zamorano was seen by Dr. Corona and written u p for D/C. however he was unable to ambulate on his own. He lives with his who feels that she can't take care of him in this state. Dr. Anthony was contacted for the Hospitalist service. - Diagnoses Provider Diagnoses: Weakness, Unable to ambulate Discharge - Sign-Out/Discharge Documenting (check all that apply): Patient Departure - Discharge Plan Condition: Stable Disposition: ADMITTED TO [facility] Patient Education Materials: Fall Prevention for Older Adults (ED) Referrals: Roque Arevalo MD [Primary Care Provider] - 3 Days - Billing Disposition and Condition Condition: STABLE Disposition: Admitted to [facility]
[2018-10-03] MEDS ORDERED: Dextrose 50% Syringe 50 ML* 25 GM/50 ML SYRINGE IV PUSH PRN (09:49)
[2018-10-03] MEDS ORDERED: NS 0.9% 1000 ML** 1,000 ML IV SCH (10:00)
[2018-10-03] MEDS: Insulin LISPRO* 1 UNITS UNIT SUBCUT SCH ×3 (12:00→22:01)
--- NOTE | 2018-10-03 12:18 | HP ---
ADMITTING HISTORY AND PHYSICAL: DATE OF ADMISSION: 10/03/18 CHIEF COMPLAINT: Weakness. HISTORY OF PRESENT ILLNESS: The patient is an 78-year-old [place] gentleman who is accompanied by his at bedside, who mentions that he has been having progressive weakness for the past six months where he mentions that he has seen cardiology interventionalist that suggested there are no other interventions that they can offer patient due to the patient's cardiomyopathy and valve problems. The patient has aortic stenosis and rheumatic mitral stenosis noted from his previous documentation. He is also being followed by Dr. Inman as an outpatient, who referred him to an interventionalist. Since 6 months ago, he mentions that although he would use a walker at times he has been progressively getting weaker, especially the last 3 or 4 days prior to this admission. He mentions that he has in fact lost weight and does not feel short of breath and denies any chest pain. Two days prior to admission, he mentioned that he was able to gently fall from bed to the floor with his gently easing him to the floor with pillows and therefore did not hurt himself, but he mentions that he has been feeling unsteady in his gait more and more, leading to his presentation in the ED. In the ED, he was found to be hypovolemic and hence he was given 1 L of normal saline bolus. However, the patient was still unable to ambulate upon hydration and hence, the patient will be admitted for failure to thrive. Given that, he also mentions that he has had decreased appetite. On review of systems, the patient denied any recent headache, dizziness, fevers , chills, nausea, vomiting, chest pain, shortness of breath, increased cough, sputum production, abdominal pain, diarrhea, constipation, pain and/or increased frequency and urination, myalgias, arthralgias, throat pain, or new skin lesions. The rest of the 14 point review of systems are otherwise unremarkable. PAST MEDICAL AND SURGICAL HISTORY: Type 2 diabetes mellitus; hypercholesterolemia; obesity; mitral stenosis, rheumatic; cardiomyopathy; aortic stenosis; heart disease; patent foramen ovale; late bubbles on NINFA; edema , lower extremity. The patient mentions that he has diagnosis of CHF and currently on diuretics, on Lasix; sleep apnea; status post toe amputation back in 2006, status post cataract removal. MEDICATIONS: His home medications are: 1. Ramipril. 2. Metoprolol 3. Liraglutide 4. Insulin. 5. Spironolactone. 6. Simvastatin. 7. Aspirin 8. Furosemide. FAMILY HISTORY: Coronary artery disease, his paternal uncle; diabetes type 2, both parents and 5 siblings. SOCIAL HISTORY: He is and lives with his . 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 He denies having smoked cigarettes. Denies any alcohol nor IV drug use. PHYSICAL EXAMINATION GENERAL APPEARANCE: The patient is awake, alert and oriented x3, not in acute distress, the patient is obese. VITAL SIGNS: Shows the most recent vital signs of records with blood pressure of 94/62, heart rate of 82, respiratory rate of 17, saturating at 95% in room air. HEENT: Normocephalic, atraumatic. PERRLA. Negative for icterus. Moist oral mucosa. Negative throat erythema. NECK: Soft and supple with no cervical lymphadenopathy. No JVD. CHEST: Clear to auscultation bilaterally. Good air entry. No wheezes, rales, or rhonchi. HEART: S1, S2 within normal limits. Regular rate and rhythm. No murmurs, rubs , or gallops ABDOMEN: Soft, nondistended, nontender, normoactive bowel sounds x4 quadrants. EXTREMITIES: No cyanosis, clubbing with evidence of nonpitting edema due to chronic venous stasis skin changes as well. PSYCHIATRIC: No active psychosis, depression, suicidal or homicidal ideation. SKIN: Warm to touch. LABORATORY DATA: The most recent pertinent laboratories drawn show CBC with a WBC of 8.9, H and H of 13.4 and 39, platelets of 234. Sodium and potassium of 129 and 4.7. BUN and creatinine of 38 and 2.19, lactic acid of 1.2, glucose of 323, troponins of 0.04. Urinalysis shows specific gravity of 1.011, glucose of 2+. Chest x-ray shows low lung volumes, mild pulmonary vascular congestion and alveolar interstitial edema. Electrocardiogram or EKG shows 79 beats per minute, left ventricular hypertrophy , normal sinus rhythm with no ST segment changes. Brain CT scan done shows no acute intracranial findings. ASSESSMENT AND PLAN: The patient is an 78-year-old [place] gentleman with history of diabetes, sleep apnea, and congestive heart failure, being admitted for failure to thrive with acute on chronic renal insufficiency, possibly due to overdiuresis. 1. Weakness, possible overdiuresis may be contributing and hence I agree with 1 L bolus and we will place patient on 75 cc an hour for 1 more bag given the patient is also mildly hypotensive initially with systolics sometimes dipping into the 70s or 80s. We will hold diuretics at this time, and we will hold spironolactone and Lasix. We will place patient on metoprolol and low dose of lisinopril given his mortality benefit with appropriate holding orders placed. 2. Acute on chronic renal failure, likely due to mild overdiuresis as well as uncontrolled diabetes. We will check urine lytes to calculate for FEUrea given the patient is on diuretics, and we will also obtain renal ultrasound to rule out post renal causes of renal failure. 3. Diabetes mellitus, uncontrolled. We will increase insulin isophane/regular combo med to 64 units subcu q.h.s. and we will place the patient on insulin sliding scale. Continue liraglutide and continue to watch fingersticks q.a.c. and h.s. and we will defer with Dr. Ricketts/ in further titration. 4. Question of congestive heart failure, stage IV. The patient is likely over diuresed with a normal BNP at this time, we will hydrate slowly. 5. Mildly elevated troponin, likely secondary to acute on chronic renal failure given the patient has chronic troponinemia. Denies any chest pain or shortness of breath. We will continue to trend troponins to see if this underlying impression is accurate. 6. Hypovolemic hyponatremia. At this time, we will continue gentle hydration and continue to follow sodium levels. 7. DVT prophylaxis. We will place patient on heparin subcu b.i.d. 8. Disposition for PT evaluation. [id number]/[facility] #: [id number] [facility] CENTERIsauro
[2018-10-03 16:08] LABS: Troponin I 0.04 ng/mL (<0.04)
[2018-10-03] MEDS: Atorvastatin* 20 MG TAB PO SCH (18:30)
[2018-10-03] MEDS: Insulin ISOPH/REG 70/30 (*) 1 UNITS UNIT SUBCUT SCH (22:02)
[2018-10-03] MEDS: Heparin VIAL(*) 5000 UNITS/ML VIAL (FIVE THOUSAND) SUBCUT SCH (22:03)
[2018-10-03 22:26] LABS: Urine Creatinine Concentration 88.57 mg/dL
[2018-10-04 04:56] LABS: ABS Basophils 0 10^3/ul (0-0.2); ABS Eosinophils 0.2 10^3/ul (0-0.6); ABS Lymphocytes 1.4 10^3/ul (1.0-4.8); ABS Monocytes 0.9 10^3/ul (0-0.8); ABS Nucleated RBC 0 10^3/ul; Eosinophil % 2.4 %; Hematocrit 36 % (36-46); Hemoglobin 12.2 g/dL (14.0-18.0); Lymphocyte % 21.1 %; Mean Corpuscular HGB Conc 34 g/dL (31-36); Mean Corpuscular Hemoglobin 31 pg (27-31); Mean Corpuscular Volume 92 fL (80-94); Mean Platelet Volume 8.2 fL (7.4-10.4); Nucleated Red Blood Cells % 0; Platelet Count 223 10^3/uL (150-450); Red Blood Count 3.96 10^6 /uL (4.18-5.48); Red Cell Distribution Width 14 % (10.5-15); White Blood Count 6.5 10^3/uL (3.5-10.8)
[2018-10-04 05:09] LABS: Albumin 3.5 g/dL (3.2-5.2); Albumin/Globulin Ratio 1.1 (1-3); BUN/Creatinine Ratio 22.9 (8-20); Calcium 8.7 mg/dL (8.6-10.3); EGFR African American 51.7 (>60); EGFR Non-African American 42.7 (>60); Globulin 3.2 g/dL (2-4); Phosphorus 3.4 mg/dL (2.5-5.0); Potassium 4.2 mmol/L (3.5-5.0); Total Bilirubin 0.3 mg/dL (0.2-1.0); Total Protein 6.7 g/dL (6.4-8.9)
[2018-10-04] MEDS ORDERED: Ramipril CAP* 2.5 MG PO SCH (09:00)
[2018-10-04] MEDS ORDERED: Metoprolol Succinate XL TAB* 25 MG PO SCH ×2 (09:00)
[2018-10-04] MEDS ORDERED: Ramipril CAP* 5 MG PO SCH (09:00)
[2018-10-04] MEDS: Heparin VIAL(*) 5000 UNITS/ML VIAL (FIVE THOUSAND) SUBCUT SCH ×2 (09:13→20:46)
[2018-10-04] MEDS: Insulin LISPRO* 1 UNITS UNIT SUBCUT SCH ×4 (09:13→20:43)
[2018-10-04] MEDS: Aspirin EC TAB* 81 MG TAB.EC PO SCH (09:13)
[2018-10-04] MEDS: PTO:Liraglutide (NF) 18 MG/3 ML SUBCUT SCH (09:16)
--- NOTE | 2018-10-04 10:16 | PN ---
Subjective - Subjective Reason for Note: Progress Note History: I am Kolton Zamorano's primary care physician, financial services education consultant and attending physician. He has had progressive weakness of his legs and problems walking. He has chronic low back pain. His presentation is documented in Dr. Heath Anthony's admitting history and physical. He has had 1 fall - CT brain shows dilated ventricles/atrophy, but no acute findings. His BUN/Cr were elevated, his BNP was low - he has not been weighing himself - he has had excessive diuretic therapy. He has had no chest pain, dyspnea, paroxysmal noct. dyspnea, no edema (very unusual). He has longstanding diabetic peripheral neuropathy. He does not have intermittent claudication. He has not had pain in his thighs. He has no radiating pain from his back. His is now his caregiver and he has become wheelchair dependent. Active Problems: Active Problems Overdose of diuretic (Acute) T50.2X1A Systolic and diastolic CHF, chronic (Acute) I50.42 Weakness of both legs (Acute) R29.898 Low back pain (Chronic) M54.5 Pulmonary nodule less than 6 cm determined by computed tomography of lung ( Chronic) R91.1 Current Medications: Current Medications Aspirin (Aspirin Ec Tab*) 81 mg PO DAILY [facility] Last Admin: 10/04/18 09:13 Dose: 81 mg Atorvastatin Calcium (Lipitor*) 20 mg PO QPM [facility] Last Admin: 10/03/18 18:30 Dose: 20 mg Dextrose (D50w Syringe 50 Ml*) 12.5 gm IV PUSH .FOR FS < 60 - SS PRN PRN Reason: FS < 60 Heparin Sodium (Porcine) (Heparin Vial(*)) 5,000 units SUBCUT Q12HR [facility] Last Admin: 10/04/18 09:13 Dose: 5,000 units Insulin Human Isoph/Insulin Regular (Humulin 70/30 (*)) 64 units SUBCUT BEDTIME [facility] Last Admin: 10/03/18 22:02 Dose: 64 unit Insulin Human Lispro (Humalog*) 0 units SUBCUT ACHS [facility]; Protocol Last Admin: 10/04/18 09:13 Dose: 2 units Liraglutide (Victoza (Nf)) 1.8 mg SUBCUT DAILY [facility] Last Admin: 10/04/18 09:16 Dose: Not Given Metoprolol Succinate (Toprol Xl Tab*) 25 mg PO DAILY [facility] Last Admin: 10/04/18 09:03 Dose: Not Given Ramipril (Altace Cap*) 2.5 mg PO DAILY [facility] Last Admin: 10/04/18 09:03 Dose: Not Given Home Medications: Home Medications Medication Instructions Recorded Confirmed Type Ramipril CAP* [Altace CAP*] 2.5 mg PO DAILY 02/24/15 10/03/18 History Liraglutide [Victoza 3-Brian] 1.8 mg SUBCUT DAILY 06/16/15 10/03/18 History Aspirin EC TAB* [Ecotrin EC Low 81 mg PO DAILY 02/07/16 10/03/18 History Dose 81 MG*] Simvastatin [Zocor 40 MG (NF)] 40 mg PO QPM 02/07/16 10/03/18 History Insulin ISOPH/REG 70/30 (*) 60 units SUBCUT BEDTIME MDD 200 08/15/17 10/03/18 History [HumuLIN 70/30 (*)] units Metoprolol Succinate XL TAB* 25 mg PO DAILY 08/15/17 10/03/18 History [Toprol XL TAB*] Furosemide TAB* [Lasix TAB*] 40 mg PO BID #180 tab 08/17/17 10/03/18 Rx Spironolactone TAB* [Aldactone TAB 25 mg PO DAILY #90 tab 08/17/17 10/03/18 Rx 25 MG*] Allergies: Allergies Allergy/AdvReac Type Severity Reaction Status Date / Time No Known Allergies Allergy Verified 08/15/17 11:25 Objective - Vital Signs Vital Signs: Vital Signs 10/03/18 10/03/18 10/03/18 10:14 10:45 11:00 Temperature Pulse Rate 83 83 82 Respiratory 19 18 19 Rate Blood Pressure 90/50 92/52 (mmHg) O2 Sat by Pulse 96 93 98 Oximetry 10/03/18 10/03/18 10/03/18 11:15 11:45 12:00 Temperature Pulse Rate 69 80 81 Respiratory 18 17 18 Rate Blood Pressure 95/63 83/56 (mmHg) O2 Sat by Pulse 97 95 98 Oximetry 10/03/18 10/03/18 10/03/18 12:15 12:45 13:00 Temperature Pulse Rate 79 83 81 Respiratory 19 18 18 Rate Blood Pressure 100/66 106/60 (mmHg) O2 Sat by Pulse 95 97 97 Oximetry 10/03/18 10/03/18 10/03/18 13:15 13:44 14:06 Temperature 97.4 F 97.8 F Pulse Rate 76 77 85 Respiratory 19 20 18 Rate Blood Pressure 120/62 115/59 (mmHg) O2 Sat by Pulse 98 97 100 Oximetry 10/03/18 10/03/18 10/03/18 16:11 19:58 20:00 Temperature 97.1 F 98.4 F Pulse Rate 76 77 Respiratory 14 16 16 Rate Blood Pressure 99/46 101/58 (mmHg) O2 Sat by Pulse 99 98 Oximetry 10/03/18 10/04/18 10/04/18 23:25 00:56 03:15 Temperature 98.5 F 98.3 F Pulse Rate 88 91 Respiratory 20 16 Rate Blood Pressure 106/63 95/55 (mmHg) O2 Sat by Pulse 99 99 98 Oximetry 10/04/18 10/04/18 07:25 07:44 Temperature 98.1 F Pulse Rate 92 Respiratory 16 16 Rate Blood Pressure 95/49 (mmHg) O2 Sat by Pulse 96 Oximetry - Intake and Output Intake and Output: Intake & Output 10/01/18 10/02/18 10/03/18 10/04/18 11:59 11:59 11:59 11:59 Intake Total 900 1155 Output Total 775 Balance 900 380 Weight 375 lb 375 lb Intake: IV Fluids 900 1055 NS 1055 Oral 100 Output: Urine 775 Other: # Bowel Movements 1 Estimated Stool Amount Large ADLs: Meal Record Start: 10/03/18 13: 44 Freq: DAILY@0900,1400,1800 Status: Active Protocol: Created 10/03/18 13:44 System (Rec: 10/03/18 13:44 System [id number]) Document 10/03/18 18:00 (Rec: 10/03/18 19:11 [id number]) Intake and Output Start: 10/03/18 03: 21 Freq: Status: Active Protocol: Created 10/03/18 03:21 System (Rec: 10/03/18 03:21 System [id number]) Intake and Output Start: 10/03/18 13: 44 Freq: DAILY@0600,1400,2200 Status: Active Protocol: Created 10/03/18 13:44 System (Rec: 10/03/18 13:44 System [id number]) Document 10/03/18 22:00 [id number] (Rec: 10/03/18 22:49 [id number]) Document 10/04/18 06:00 [id number] (Rec: 10/04/18 07:17 [id number]) - Physical Exam General Physical Exam Comment: He has no edema, and has no respiratory distress. He is hypotensive. General: No Cyanosis, No Anemia, No Jaundice, No Clubbing Endocrine: Yes Central Obesity, No Acromegaly, No Vitiligo, No Flushing, No Acanthosis nigricans, No Violaceious striae, No [place] Syndrome Lungs and Chest: Yes: Chest Expansion Full, Chest Expansion Symetrica, Percussion Note Resonant, Vessicular Breath Sounds. No: Crackles, Wheezes, Respiratory Distress, Use of Accessory Muscles Heart Rate and Rhythm: Regular Additional Cardiovascular: Yes: Normal Heart Sounds, Heart Murmur. No: Pedal Edema Abdominal Exam: Yes: Soft, Bowel Sounds Present. No: Distention, Abdominal Tenderness - Extremities Cranial Nerves II-XII Intact: Yes Limbs: Normal Tone, Abnormal Power - Normal arms, 3 legs - Neuro Orientation: A/O x3 Psychiatric: Normal Speech: Normal Results - Results Lab Results: Laboratory Results - last 24 hr 10/03/18 10/03/18 10/03/18 10:02 15:35 16:45 WBC RBC Hgb Hct MCV MCH MCHC RDW Plt Count MPV Neut % (Auto) Lymph % (Auto) Wilkin % (Auto) Eos % (Auto) Baso % (Auto) Absolute Neuts (auto) Absolute Lymphs (auto) Absolute Monos (auto) Absolute Eos (auto) Absolute Basos (auto) Absolute Nucleated RBC Nucleated RBC % Sodium Potassium Chloride Carbon Dioxide Anion Gap BUN Creatinine Est GFR ( Amer) Est GFR (Non-Af Amer) BUN/Creatinine Ratio Glucose POC Glucose (mg/dL) 317 H 330 H Calcium Phosphorus Magnesium Total Bilirubin AST ALT Alkaline Phosphatase Troponin I 0.04 H* B-Natriuretic Peptide Total Protein Albumin Globulin Albumin/Globulin Ratio Ur Creatinine Concen U Sodium Concentration Ur Urea Nitrogen Conc 10/03/18 10/03/18 10/03/18 19:37 20:43 21:14 WBC RBC Hgb Hct MCV MCH MCHC RDW Plt Count MPV Neut % (Auto) Lymph % (Auto) Wilkin % (Auto) Eos % (Auto) Baso % (Auto) Absolute Neuts (auto) Absolute Lymphs (auto) Absolute Monos (auto) Absolute Eos (auto) Absolute Basos (auto) Absolute Nucleated RBC Nucleated RBC % Sodium Potassium Chloride Carbon Dioxide Anion Gap BUN Creatinine Est GFR ( Amer) Est GFR (Non-Af Amer) BUN/Creatinine Ratio Glucose POC Glucose (mg/dL) 337 H Calcium Phosphorus Magnesium Total Bilirubin AST ALT Alkaline Phosphatase Troponin I 0.03 B-Natriuretic Peptide Total Protein Albumin Globulin Albumin/Globulin Ratio Ur Creatinine Concen 88.57 U Sodium Concentration 54 Ur Urea Nitrogen Conc 727 10/03/18 10/04/18 10/04/18 21:42 04:33 04:33 WBC 6.5 RBC 3.96 L Hgb 12.2 L Hct 36 MCV 92 MCH 31 MCHC 34 RDW 14 Plt Count 223 MPV 8.2 Neut % (Auto) 62.0 Lymph % (Auto) 21.1 Wilkin % (Auto) 14.1 Eos % (Auto) 2.4 Baso % (Auto) 0.4 Absolute Neuts (auto) 4.0 Absolute Lymphs (auto) 1.4 Absolute Monos (auto) 0.9 H Absolute Eos (auto) 0.2 Absolute Basos (auto) 0 Absolute Nucleated RBC 0 Nucleated RBC % 0 Sodium 132 L Potassium 4.2 Chloride 99 L Carbon Dioxide 24 Anion Gap 9 BUN 36 H Creatinine 1.57 H Est GFR ( Amer) 51.7 Est GFR (Non-Af Amer) 42.7 BUN/Creatinine Ratio 22.9 H Glucose 175 H POC Glucose (mg/dL) 312 H Calcium 8.7 Phosphorus 3.4 Magnesium 2.0 Total Bilirubin 0.30 AST 15 ALT 12 Alkaline Phosphatase 72 Troponin I B-Natriuretic Peptide Total Protein 6.7 Albumin 3.5 Globulin 3.2 Albumin/Globulin Ratio 1.1 Ur Creatinine Concen U Sodium Concentration Ur Urea Nitrogen Conc 10/04/18 10/04/18 04:33 07:34 WBC RBC Hgb Hct MCV MCH MCHC RDW Plt Count MPV Neut % (Auto) Lymph % (Auto) Wilkin % (Auto) Eos % (Auto) Baso % (Auto) Absolute Neuts (auto) Absolute Lymphs (auto) Absolute Monos (auto) Absolute Eos (auto) Absolute Basos (auto) Absolute Nucleated RBC Nucleated RBC % Sodium Potassium Chloride Carbon Dioxide Anion Gap BUN Creatinine Est GFR ( Amer) Est GFR (Non-Af Amer) BUN/Creatinine Ratio Glucose POC Glucose (mg/dL) 135 H Calcium Phosphorus Magnesium Total Bilirubin AST ALT Alkaline Phosphatase Troponin I B-Natriuretic Peptide 48 Total Protein Albumin Globulin Albumin/Globulin Ratio Ur Creatinine Concen U Sodium Concentration Ur Urea Nitrogen Conc Radiology Results: Patient Name: ANJELICA ZAMORANO Medical Record#: [id number] Ordering Physician: Og Corona MD Acct.#: [id number] : 1940 Age: 78 Sex: M Location: EMERGENCY DEPARTMENT Exam Date: 10/03/18 032 ADM Status: REG ER Order Information: CT BRAIN WO Accession Number: [id number] CPT: 97505 EXAM: CT Head Without Contrast EXAM DATE/TIME: 10/03/2018 3:45 AM CLINICAL HISTORY: 78 years old, male; Signs and symptoms; Weakness, extremity; Bilateral; Additional info: Fall, weakness TECHNIQUE: Imaging protocol: Axial computed tomography images of the head/brain without contrast. Radiation optimization: All CT scans at this facility use at least one of these dose optimization techniques: automated exposure control; mA and/or kV adjustment per patient size (includes targeted exams where dose is matched to clinical indication); or iterative reconstruction. COMPARISON: BRAIN WO CT BRAIN WO 01/28/2016 11:57 AM FINDINGS: Brain: No evidence of acute intracranial hemorrhage. No intracranial mass or mass effect. Age-related cerebral cortical volume loss. The [place] matter is intact. Geographic areas of diminished density in the subcortical and periventricular white matter consistent with microvascular leukoencephalopathy. The brainstem is grossly intact. Mild cerebellar hemispheric volume loss. Ventricles: Normal. No ventriculomegaly. Bones/joints: Ventriculomegaly commensurate with the degree of cervical cortical volume loss. Sinuses: Mucoperiosteal thickening posterior aspect left maxillary sinus. Mastoid air cells: Visualized mastoid air cells are unremarkable. No mastoid effusion. Soft tissues: Unremarkable. Vasculature: Vascular calcification. Other findings: Since prior CT study of 01/28/2016, no significant new findings. IMPRESSION: 1. No acute intracranial findings. 2. Aspect score 10 out of 10 pneumonia both middle cerebral arteries. To contact [facility] with a general question: [facility] - [phone] For direct physician to physician contact: Physician Hotline - [phone] [facility] (ad Facility ID #[id number]) <Electronically signed by Fiona Alicea MD in OV> 10/03/18 0542 Patient Name: ANJELICA ZAMORANO Medical Record#: [id number] Ordering Physician: Og Corona MD Acct.#: [id number] : 1940 Age: 78 Sex: M Location: EMERGENCY DEPARTMENT Exam Date: 10/03/18 0407 ADM Status: REG ER Order Information: CHEST PA & LAT 2 VWS Accession Number: [id number] CPT: 12921 INDICATION: Weakness, dyspnea. Aortic stenosis end diastolic dysfunction. COMPARISON: August 15, 2017 CT. TECHNIQUE: Dual energy PA and routine lateral views of the chest were obtained. REPORT: Low lung volumes with associated crowding of the pulmonary markings and subsegmental atelectasis. Cardiomegaly, prominent ill-defined central pulmonary vasculature and mild perihilar opacities. Trace fluid in the RIGHT minor fissure. Negative for pneumothorax. IMPRESSION: #. Low lung volumes limits assessment. #. Mild pulmonary vascular congestion and alveolar and interstitial edema. R2 Preliminary Imaging Read R2 <Electronically signed by Carlos Chin MD in OV> 10/03/18 08 Dictated By: Carlos Chin MD Dictated Date/Time: 10/03/18 0806 Transcribed Date/Time: 10/03/18 0802 Copy to: Patient Name: ANJELICA ZAMORANO Medical Record#: [id number] Ordering Physician: Heath Anthony MD Acct.#: [id number] : 1940 Age: 78 Sex: M Location: [address] [place] [address]/TELEMETRY Exam Date: 10/03/18 0946 ADM Status: ADM IN Order Information: US RENAL COMPLETE Accession Number: [id number] CPT: 50746 Indication: Acute on chronic renal insufficiency. Comparison: August 15, [address] March 31, 2017 ultrasound. Technique: Renal ultrasound. Report: 10.4 x 4.4 x 4.6 cm RIGHT kidney demonstrates normal cortical thickness and echogenicity. Subcentimeter cyst noted at the midpole. No conspicuous stones or hydronephrosis. 11.2 x 5.6 x 5.4 cm LEFT kidney is suboptimally visualized due to body habitus limiting acoustic window. Normal cortical thickness and echogenicity. No conspicuous stones or hydronephrosis. Previous 5.4 cm cyst at the upper pole on the prior CT and ultrasound is poorly visualized due to limited acoustic window. IMPRESSION: #. Negative for renal cortical atrophy. #. Negative for obstructive uropathy. <Electronically signed by Carlos Chin MD in OV> 10/03/18 1347 Dictated By: Carlos Chin MD Dictated Date/Time: 10/03/18 1347 Transcribed Date/Time: 10/03/18 1344 Copy to: CC:Roque Arevalo MD; Heath Anthony MD; Rajni Inman MD Imaging - [facility] Imaging - [facility] [address] [address] ph [phone]) ph [phone]) ph [phone]) Patient Name: ANJELICA ZAMORANO Medical Record#: [id number] Ordering Physician: Seth ALEJANDRO Acct.#: [id number] : 1940 Age: 76 Sex: M Location: IMAGING Exam Date: 12/24/16 ADM Status: REG REF Order Information: SP LUMBARSACRAL 4+ VWS Accession Number: [id number] CPT: 09271 INDICATION: Back pain COMPARISON: None TECHNIQUE: Routine PA, lateral, and oblique imaging was performed . FINDINGS: Bones: There are no acute bony findings. There are degenerative changes with multilevel facet arthropathy. This is most pronounced at L4-L5 and L5-S1. There is minor disc space narrowing with vacuum disc phenomena at L4-L5. There is a 4 mm anterolisthesis. Alignment: Alignment is otherwise normal Disc spaces: The remaining disc spaces are well-maintained Soft tissues: There are no soft tissue abnormalities. IMPRESSION: DEGENERATIVE CHANGES MOST SIGNIFICANT AT L4-L5 WITH A GRADE 1 ANTEROLISTHESIS. PROMINENT FACET ARTHROPATHY AT L4-L5 AND L5-S1 <Electronically signed by Seth Aguilera MD in OV> 12/24/161808 Dictated By: Seth Aguilera MD Dictated Date/Time: 12/24/161808 Transcribed Date/Time: 12/24/161806 Copy to: CC:Roque Arevalo MD; Mark Rcoha MD; Seth Quezada [facility] Imaging - [facility] Imaging - [facility] [address] [place] [address] ph [phone]) ph ([phone]) ph ([phone]) of EKG Report: Sinus rhythm, LVH - personally inspected Assessment - Problem List Assessment: Patient Problems Overdose of diuretic (Acute) Systolic and diastolic CHF, chronic (Acute) Weakness of both legs (Acute) Low back pain (Chronic) Pulmonary nodule less than 6 cm determined by computed tomography of lung ( Chronic) Aortic stenosis (Chronic) Atrial septal defect (Chronic) Hypercholesteremia (Chronic) Left ventricular hypertrophy (Chronic) Mild mitral regurgitation (Chronic) Obesities, morbid (Chronic) Type 2 diabetes mellitus with neurological manifestations, uncontrolled (Chronic ) Type 2 diabetes mellitus, uncontrolled, with renal complications (Chronic) Plan: Overdose of diuretic (Acute)Systolic and diastolic CHF, chronic (Acute) He has volume contraction, orthostasis,pre-renal azotemia from excessive diuretic use. He has no evidence of acute CHF - his BNP is low, he unusually for him has no evidence of edema. He needs to have some cautious refilling of his volume. There is no evidence of acute cardiac abnormalities Weakness of both legs (Acute)Low back pain (Chronic) This has been progressing slowly. He has fallen as it is exacerbated by hypotension. Differential diagnosis: * Spinal stenosis * diabetic amyotrophy * severe diabetic neuropathy 12/24/2016 plain LS films: IMPRESSION: DEGENERATIVE CHANGES MOST SIGNIFICANT AT L4-L5 WITH A GRADE 1 ANTEROLISTHESIS. PROMINENT FACET ARTHROPATHY AT L4-L5 AND L5-S1 1. I will order an MRI LS spine 2. I will check an EMG to rule out amyotrophy and acute dennervation 3. OT/PT consult. Pulmonary nodule less than 6 cm determined by computed tomography of lung ( Chronic) Aortic stenosis (Chronic) moderate Atrial septal defect (Chronic) Hypercholesteremia (Chronic) Left ventricular hypertrophy (Chronic) Mild mitral regurgitation (Chronic) severe Obesities, morbid (Chronic) Type 2 diabetes mellitus with neurological manifestations, uncontrolled (Chronic )Type 2 diabetes mellitus, uncontrolled, with renal complications (Chronic) he has chronic hyperglycemia and insulin resistance. No evidence of infection.
[2018-10-04] MEDS ORDERED: NS 0.9% 50 ML* 50 ML IV ONE (11:18)
[2018-10-04] MEDS: NS 0.9% 1000 ML** 1,000 ML IV SCH (12:24)
[2018-10-04] MEDS: Atorvastatin* 20 MG TAB PO SCH (16:53)
[2018-10-04] MEDS: Insulin ISOPH/REG 70/30 (*) 1 UNITS UNIT SUBCUT SCH (20:43)
[2018-10-05] MEDS: NS 0.9% 1000 ML** 1,000 ML IV SCH (01:51)
[2018-10-05 05:13] LABS: BUN/Creatinine Ratio 18.7 (8-20); C Reactive Protein 23.24 mg/L (<8.01); Calcium 8.3 mg/dL (8.6-10.3); EGFR African American 62.1 (>60); EGFR Non-African American 51.3 (>60); Potassium 3.9 mmol/L (3.5-5.0)
--- NOTE | 2018-10-05 08:34 | PN ---
Subjective - Subjective Reason for Note: Progress Note History: He feels a little better today. He is wheezing, but is not short of breath. He doesn't usually wheeze. His glucose levels are excellent - he usually runs high. He has no orthopnea, paroxysma nocturnal dyspnea. I reviewed PT report Active Problems: Active Problems Overdose of diuretic (Acute) T50.2X1A Systolic and diastolic CHF, chronic (Acute) I50.42 Weakness of both legs (Acute) R29.898 Wheezing (Acute) R06.2 Low back pain (Chronic) M54.5 Pulmonary nodule less than 6 cm determined by computed tomography of lung ( Chronic) R91.1 Current Medications: Current Medications Aspirin (Aspirin Ec Tab*) 81 mg PO DAILY [facility] Last Admin: 10/04/18 09:13 Dose: 81 mg Atorvastatin Calcium (Lipitor*) 20 mg PO QPM [facility] Last Admin: 10/04/18 16:53 Dose: 20 mg Dextrose (D50w Syringe 50 Ml*) 12.5 gm IV PUSH .FOR FS < 60 - SS PRN PRN Reason: FS < 60 Heparin Sodium (Porcine) (Heparin Vial(*)) 5,000 units SUBCUT Q12HR [facility] Last Admin: 10/04/18 20:46 Dose: 5,000 units Sodium Chloride (Ns 0.9% 1000 Ml) 1,000 mls @ 75 mls/hr IV .PER RATE [facility] Last Admin: 10/05/18 01:51 Dose: 75 mls/hr Insulin Human Isoph/Insulin Regular (Humulin 70/30 (*)) 64 units SUBCUT BEDTIME [facility] Last Admin: 10/04/18 20:43 Dose: 64 unit Insulin Human Lispro (Humalog*) 0 units SUBCUT ACHS [facility]; Protocol Last Admin: 10/04/18 20:43 Dose: 3 units Liraglutide (Victoza (Nf)) 1.8 mg SUBCUT DAILY [facility] Last Admin: 10/04/18 09:16 Dose: Not Given Home Medications: Home Medications Medication Instructions Recorded Confirmed Type Ramipril CAP* [Altace CAP*] 2.5 mg PO DAILY 02/24/15 10/03/18 History Liraglutide [Victoza 3-Brian] 1.8 mg SUBCUT DAILY 06/16/15 10/03/18 History Aspirin EC TAB* [Ecotrin EC Low 81 mg PO DAILY 02/07/16 10/03/18 History Dose 81 MG*] Simvastatin [Zocor 40 MG (NF)] 40 mg PO QPM 02/07/16 10/03/18 History Insulin ISOPH/REG 70/30 (*) 60 units SUBCUT BEDTIME MDD 200 08/15/17 10/03/18 History [HumuLIN 70/30 (*)] units Metoprolol Succinate XL TAB* 25 mg PO DAILY 08/15/17 10/03/18 History [Toprol XL TAB*] Furosemide TAB* [Lasix TAB*] 40 mg PO BID #180 tab 08/17/17 10/03/18 Rx Spironolactone TAB* [Aldactone TAB 25 mg PO DAILY #90 tab 08/17/17 10/03/18 Rx 25 MG*] Allergies: Allergies Allergy/AdvReac Type Severity Reaction Status Date / Time No Known Allergies Allergy Verified 08/15/17 11:25 Objective - Vital Signs Vital Signs: Vital Signs 10/04/18 10/04/18 10/04/18 15:27 19:27 23:16 Temperature 97.8 F 99.1 F Pulse Rate 80 82 Respiratory 18 18 18 Rate Blood Pressure 106/46 103/59 (mmHg) O2 Sat by Pulse 95 96 Oximetry 10/05/18 10/05/18 10/05/18 03:09 03:15 07:51 Temperature 98.4 F Pulse Rate 80 Respiratory 18 16 Rate Blood Pressure 94/57 (mmHg) O2 Sat by Pulse 86 95 Oximetry 10/05/18 08:15 Temperature 98.1 F Pulse Rate 78 Respiratory 20 Rate Blood Pressure 98/57 (mmHg) O2 Sat by Pulse 97 Oximetry - Intake and Output Intake and Output: Intake & Output 10/02/18 10/03/18 10/04/18 10/05/18 11:59 11:59 11:59 11:59 Intake Total 900 1155 1236 Output Total 775 1350 Balance 900 380 -114 Weight 375 lb 375 lb 257 lb 12.8 oz Intake: IV Fluids 900 1055 1236 NS 1055 1236 Oral 100 0 Output: Urine 775 1350 Other: Estimated Void Large # Bowel Movements 1 1 Estimated Stool Amount Large Small # Voids 0 ADLs: Meal Record Start: 10/03/18 13: 44 Freq: DAILY@0900,1400,1800 Status: Active Protocol: Created 10/03/18 13:44 System (Rec: 10/03/18 13:44 System [id number]) Document 10/03/18 18:00 [id number] (Rec: 10/03/18 19:11 [id number] TELE-C11) Document 10/04/18 09:00 [id number] (Rec: 10/04/18 12:55 [id number] TELE-C06) Document 10/04/18 14:00 [id number] (Rec: 10/04/18 14:17 [id number] TELE-C06) Document 10/04/18 18:00 [id number] (Rec: 10/04/18 23:35 [id number] TELE-C06) Intake and Output Start: 10/03/18 03: 21 Freq: Status: Active Protocol: Created 10/03/18 03:21 System (Rec: 10/03/18 03:21 System ED-C05) Intake and Output Start: 10/03/18 13: 44 Freq: DAILY@0600,1400,2200 Status: Active Protocol: Created 10/03/18 13:44 System (Rec: 10/03/18 13:44 System TELE-M14) Document 10/03/18 22:00 [id number] (Rec: 10/03/18 22:49 [id number] TELE-C11) Document 10/04/18 06:00 [id number] (Rec: 10/04/18 07:17 [id number] TELE-C07) Document 10/04/18 14:00 [id number] (Rec: 10/04/18 14:17 [id number] TELE-C06) Document 10/04/18 22:00 [id number] (Rec: 10/04/18 23:37 [id number] TELE-C06) Document 10/05/18 05:43 [id number] (Rec: 10/05/18 05:44 [id number] TELE-C06) - Physical Exam General: No Cyanosis, No Anemia, No Jaundice, No Clubbing Lungs and Chest: Yes: Chest Expansion Full, Chest Expansion Symetrica, Percussion Note Resonant, Vessicular Breath Sounds, Wheezes. No: Crackles, Respiratory Distress, Use of Accessory Muscles Heart Rate and Rhythm: Regular Additional Cardiovascular: Yes: Normal Heart Sounds, Heart Murmur. No: Pedal Edema Abdominal Exam: Yes: Soft, Bowel Sounds Present. No: Distention, Abdominal Tenderness Results - Results Lab Results: Laboratory Results - last 24 hr 10/04/18 10/04/18 10/04/18 10:54 16:13 20:13 Sodium Potassium Chloride Carbon Dioxide Anion Gap BUN Creatinine Est GFR ( Amer) Est GFR (Non-Af Amer) BUN/Creatinine Ratio Glucose POC Glucose (mg/dL) 230 H 178 H 171 H Calcium C-Reactive Protein Cortisol 10/04/18 10/05/18 10/05/18 21:41 04:45 07:17 Sodium 133 L Potassium 3.9 Chloride 102 Carbon Dioxide 26 Anion Gap 5 BUN 25 H Creatinine 1.34 H Est GFR ( Amer) 62.1 Est GFR (Non-Af Amer) 51.3 BUN/Creatinine Ratio 18.7 Glucose 120 H POC Glucose (mg/dL) 85 Calcium 8.3 L C-Reactive Protein 23.24 H Cortisol 6.51 Assessment - Problem List Assessment: Patient Problems Overdose of diuretic (Acute) Systolic and diastolic CHF, chronic (Acute) Weakness of both legs (Acute) Wheezing (Acute) Low back pain (Chronic) Pulmonary nodule less than 6 cm determined by computed tomography of lung ( Chronic) Aortic stenosis (Chronic) Atrial septal defect (Chronic) Hypercholesteremia (Chronic) Left ventricular hypertrophy (Chronic) Mild mitral regurgitation (Chronic) Obesities, morbid (Chronic) Type 2 diabetes mellitus with neurological manifestations, 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 I note that I am giving him saline IV. His BP remains low. I don't want to overshoot and push him into CHF. I will stop the IVF today, as his Cr has reached baseline. I will not restart diuretics today. We have an accurate weight today and I will follow this tomorrow - as well as the I and O Wheezing - this is more prominent today. I think this is likely secondary to either a viral bronchitis or allergy - it is atypical for him. I don't want to treat with an antibacterial, I will use an MDI with a spacer. Systolic and diastolic CHF, chronic (Acute) I am concerned not to salt load him into CHF - he is on a tightrope here between too little volume for his kidneys and too much for his heart. 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 Secondary diagnoses: Pulmonary nodule less than 6 cm determined by computed tomography of lung ( Chronic) Aortic stenosis (Chronic) Atrial septal defect (Chronic) Hypercholesteremia (Chronic) Left ventricular hypertrophy (Chronic) Mild mitral regurgitation (Chronic) Obesities, morbid (Chronic) I discussed the above with Kolton Zamorano and he agreed with the management plan. I called his - no response. He requires another 24 hours at least for evaluation of his weakness and also for management of his volume
[2018-10-05] MEDS: Mometasone/Formoter 100/5 MDI INH SCH ×3 (09:02→20:45)
[2018-10-05] MEDS: PTO:Liraglutide (NF) 18 MG/3 ML SUBCUT SCH (09:18)
[2018-10-05] MEDS: Aspirin EC TAB* 81 MG TAB.EC PO SCH (09:29)
[2018-10-05] MEDS: Heparin VIAL(*) 5000 UNITS/ML VIAL (FIVE THOUSAND) SUBCUT SCH ×2 (09:30→20:56)
[2018-10-05] MEDS: Insulin LISPRO* 1 UNITS UNIT SUBCUT SCH (09:40)
[2018-10-05] MEDS: Atorvastatin* 20 MG TAB PO SCH (17:41)
[2018-10-05] MEDS: Insulin ISOPH/REG 70/30 (*) 1 UNITS UNIT SUBCUT SCH (17:42)
[2018-10-05] MEDS ORDERED: Insulin LISPRO* 1 UNITS UNIT SUBCUT ONE (22:40)
[2018-10-05] MEDS ORDERED: Dextrose 50% Syringe 50 ML* 25 GM/50 ML SYRINGE IV PUSH PRN (22:40)
--- NOTE | 2018-10-05 22:45 | PN ---
Subjective Date of Service: 10/05/18 Interval History: Called for elevated blood sugar of 355. Plan: Lispro 10U for now with repeat fingerstick in 1 hour. Objective Active Medications: Aspirin (Aspirin Ec Tab*) 81 mg PO DAILY [facility] Last Admin: 10/05/18 09:29 Dose: 81 mg Atorvastatin Calcium (Lipitor*) 20 mg PO QPM [facility] Last Admin: 10/05/18 17:41 Dose: 20 mg Dextrose (D50w Syringe 50 Ml*) 12.5 gm IV PUSH .FOR FS < 60 - SS PRN PRN Reason: FS < 60 Dextrose (D50w Syringe 50 Ml*) 12.5 gm IV PUSH .FOR FS < 60 - SS PRN PRN Reason: FS < 60 Heparin Sodium (Porcine) (Heparin Vial(*)) 5,000 units SUBCUT Q12HR [facility] Last Admin: 10/05/18 20:56 Dose: 5,000 units Insulin Human Isoph/Insulin Regular (Humulin 70/30 (*)) 25 units SUBCUT 0800, 1700 [facility] Last Admin: 10/05/18 17:42 Dose: 25 units Insulin Human Lispro (Humalog*) 10 units SUBCUT ONCE ONE Stop: 10/05/18 22:41 Liraglutide (Victoza (Nf)) 1.8 mg SUBCUT DAILY [facility] Last Admin: 10/05/18 09:18 Dose: Not Given Mometasone Furoate/Formoterol Fumar (Dulera 100/5 Mdi*) 2 puff INH BID [facility] Last Admin: 10/05/18 20:45 Dose: 2 puff Vital Signs - 8 hr 10/05/18 10/05/18 10/05/18 16:19 20:00 20:02 Temperature 97.0 F 98.5 F Pulse Rate 85 84 Respiratory 16 16 18 Rate Blood Pressure 97/63 114/61 (mmHg) O2 Sat by Pulse 97 98 Oximetry 10/05/18 10/05/18 20:22 20:47 Temperature Pulse Rate 114 92 Respiratory 16 Rate Blood Pressure 113/59 (mmHg) O2 Sat by Pulse 94 Oximetry Oxygen Devices in Use Now: None Result Diagrams: 10/04/18 04:33 10/05/18 04:45 Assess/Plan/Problems-Billing Assessment:
[2018-10-05] MEDS ORDERED: Insulin GLARGINE(*) 1 UNITS UNIT SUBCUT SCH (23:30)
[2018-10-06 06:16] LABS: BUN/Creatinine Ratio 15.1 (8-20); Calcium 8.8 mg/dL (8.6-10.3); EGFR African American 66.6 (>60); EGFR Non-African American 55.1 (>60); Potassium 4.3 mmol/L (3.5-5.0)
[2018-10-06] MEDS: Mometasone/Formoter 100/5 MDI INH SCH ×2 (07:36→19:02)
--- NOTE | 2018-10-06 08:55 | PN ---
Subjective - Subjective Reason for Note: Progress Note History: He is feeling improved. The wheezing is better. He has no chest pain, dyspnea, palpitaitons or edema. I have reviewed the PT/OT reports. He is stronger when in the upright position. He has been hyperglycemic. Active Problems: Active Problems Overdose of diuretic (Acute) T50.2X1A Systolic and diastolic CHF, chronic (Acute) I50.42 Weakness of both legs (Acute) R29.898 Wheezing (Acute) R06.2 Low back pain (Chronic) M54.5 Pulmonary nodule less than 6 cm determined by computed tomography of lung ( Chronic) R91.1 Spinal stenosis at L4-L5 level (Chronic) M48.061 Current Medications: Current Medications Aspirin (Aspirin Ec Tab*) 81 mg PO DAILY [facility] Last Admin: 10/05/18 09:29 Dose: 81 mg Atorvastatin Calcium (Lipitor*) 20 mg PO QPM [facility] Last Admin: 10/05/18 17:41 Dose: 20 mg Dextrose (D50w Syringe 50 Ml*) 12.5 gm IV PUSH .FOR FS < 60 - SS PRN PRN Reason: FS < 60 Heparin Sodium (Porcine) (Heparin Vial(*)) 5,000 units SUBCUT Q12HR [facility] Last Admin: 10/05/18 20:56 Dose: 5,000 units Insulin Glargine (Lantus(*)) 25 units SUBCUT BEDTIME [facility] Last Admin: 10/05/18 23:31 Dose: 25 unit Insulin Human Isoph/Insulin Regular (Humulin 70/30 (*)) 25 units SUBCUT 0800, 1700 [facility] Last Admin: 10/05/18 17:42 Dose: 25 units Liraglutide (Victoza (Nf)) 1.8 mg SUBCUT DAILY [facility] Last Admin: 10/05/18 09:18 Dose: Not Given Mometasone Furoate/Formoterol Fumar (Dulera 100/5 Mdi*) 2 puff INH BID [facility] Last Admin: 10/06/18 07:36 Dose: 2 puff Home Medications: Home Medications Medication Instructions Recorded Confirmed Type Ramipril CAP* [Altace CAP*] 2.5 mg PO DAILY 02/24/15 10/03/18 History Liraglutide [Victoza 3-Brian] 1.8 mg SUBCUT DAILY 06/16/15 10/03/18 History Aspirin EC TAB* [Ecotrin EC Low 81 mg PO DAILY 02/07/16 10/03/18 History Dose 81 MG*] Simvastatin [Zocor 40 MG (NF)] 40 mg PO QPM 02/07/16 10/03/18 History Insulin ISOPH/REG 70/30 (*) 60 units SUBCUT BEDTIME MDD 200 08/15/17 10/03/18 History [HumuLIN 70/30 (*)] units Metoprolol Succinate XL TAB* 25 mg PO DAILY 08/15/17 10/03/18 History [Toprol XL TAB*] Furosemide TAB* [Lasix TAB*] 40 mg PO BID #180 tab 08/17/17 10/03/18 Rx Spironolactone TAB* [Aldactone TAB 25 mg PO DAILY #90 tab 08/17/17 10/03/18 Rx 25 MG*] Allergies: Allergies Allergy/AdvReac Type Severity Reaction Status Date / Time No Known Allergies Allergy Verified 08/15/17 11:25 Objective - Vital Signs Vital Signs: Vital Signs 10/05/18 10/05/18 10/05/18 11:58 16:19 20:00 Temperature 97.0 F Pulse Rate 81 85 Respiratory 16 16 16 Rate Blood Pressure 97/63 (mmHg) O2 Sat by Pulse 96 97 Oximetry 10/05/18 10/05/18 10/05/18 20:02 20:22 20:47 Temperature 98.5 F Pulse Rate 84 114 92 Respiratory 18 16 Rate Blood Pressure 114/61 113/59 (mmHg) O2 Sat by Pulse 98 94 Oximetry 10/05/18 10/06/18 23:57 07:38 Temperature 98.5 F Pulse Rate 86 95 Respiratory 18 14 Rate Blood Pressure 104/56 (mmHg) O2 Sat by Pulse 97 97 Oximetry - Intake and Output Intake and Output: Intake & Output 10/03/18 10/04/18 10/05/18 10/06/18 11:59 11:59 11:59 11:59 Intake Total 900 1155 1236 480 Output Total 775 1350 1775 Balance 900 380 114 -1694 Weight 375 lb 375 lb 257 lb 12.8 oz 254 lb 4.8 oz Intake: IV Fluids 900 1055 1236 NS 1055 1236 Oral 100 0 480 Output: Urine 775 1350 1775 Other: Estimated Void Large Large # Bowel Movements 1 1 Estimated Stool Amount Large Small # Voids 0 1 ADLs: Meal Record Start: 10/03/18 13: 44 Freq: DAILY@0900,1400,1800 Status: Active Protocol: Created 10/03/18 13:44 System (Rec: 10/03/18 13:44 System [id number]) Document 10/03/18 18:00 [id number] (Rec: 10/03/18 19:11 [id number] TELE-C11) Document 10/04/18 09:00 [id number] (Rec: 10/04/18 12:55 [id number] TELE-C06) Document 10/04/18 14:00 [id number] (Rec: 10/04/18 14:17 [id number] TELE-C06) Document 10/04/18 18:00 [id number] (Rec: 10/04/18 23:35 [id number] TELE-C06) Document 10/05/18 09:00 [id number] (Rec: 10/05/18 15:09 [id number] TELE-C11) Document 10/05/18 14:00 [id number] (Rec: 10/05/18 15:08 [id number] TELE-C11) Document 10/05/18 18:00 [id number] (Rec: 10/05/18 19:37 [id number] TELE-C01) Intake and Output Start: 10/03/18 03: 21 Freq: Status: Active Protocol: Created 10/03/18 03:21 System (Rec: 10/03/18 03:21 System ED-C05) Intake and Output Start: 10/03/18 13: 44 Freq: DAILY@0600,1400,2200 Status: Active Protocol: Created 10/03/18 13:44 System (Rec: 10/03/18 13:44 System TELE-M14) Document 10/03/18 22:00 [id number] (Rec: 10/03/18 22:49 [id number] TELE-C11) Document 10/04/18 06:00 [id number] (Rec: 10/04/18 07:17 [id number] TELE-C07) Document 10/04/18 14:00 [id number] (Rec: 10/04/18 14:17 [id number] TELE-C06) Document 10/04/18 22:00 [id number] (Rec: 10/04/18 23:37 [id number] TELE-C06) Document 10/05/18 05:43 [id number] (Rec: 10/05/18 05:44 [id number] TELE-C06) Document 10/05/18 14:00 [id number] (Rec: 10/05/18 15:08 [id number] TELE-C11) Document 10/05/18 22:00 [id number] (Rec: 10/05/18 22:11 TELE-C11) Document 10/06/18 05:40 [id number] (Rec: 10/06/18 05:40 [id number] TELE-C32) - Physical Exam General: No Cyanosis, No Anemia, No Jaundice, No Clubbing Lungs and Chest: Yes: Chest Expansion Full, Chest Expansion Symetrica, Percussion Note Resonant, Vessicular Breath Sounds. No: Crackles, Wheezes Heart Rate and Rhythm: Regular Additional Cardiovascular: Yes: Normal Heart Sounds, Heart Murmur. No: Pedal Edema Abdominal Exam: Yes: Soft, Bowel Sounds Present. No: Distention, Abdominal Tenderness Results - Results Lab Results: Laboratory Results - last 24 hr 10/05/18 10/05/18 10/05/18 16:34 20:22 22:12 Sodium Potassium Chloride Carbon Dioxide Anion Gap BUN Creatinine Est GFR ( Amer) Est GFR (Non-Af Amer) BUN/Creatinine Ratio Glucose POC Glucose (mg/dL) 261 H 309 H Glucose Meter Confirm 355 H Calcium 10/06/18 05:17 Sodium 132 L Potassium 4.3 Chloride 102 Carbon Dioxide 23 Anion Gap 7 BUN 19 Creatinine 1.26 H Est GFR ( Amer) 66.6 Est GFR (Non-Af Amer) 55.1 BUN/Creatinine Ratio 15.1 Glucose 307 H POC Glucose (mg/dL) Glucose Meter Confirm Calcium 8.8 Radiology Results: Patient Name: ANJELICA WALTER Medical Record#: [id number] Ordering Physician: Roque Arevalo MD Acct.#: [id number] : 1940 Age: 78 Sex: M Location: [address] [place] [address]/[facility] Exam Date: 10/05/18 1114 ADM Status: ADM IN Order Information: MRI LUMBAR SPINE W/O Accession Number: [id number] CPT: 15932 Indication: Low back pain. Image Sequences: Sagittal proton density, fat-suppressed proton density, axial T1 and T2-weighted images of the lumbar spine were obtained. The vertebral bodies appear normal in height. Normal bone marrow signal is noted. At L5-S1, there is broad-based protrusion flattening the epidural fat. No definite central stenosis is noted. No foraminal stenosis is noted, although moderate facet arthropathy is noted. At L4-5, there is grade 1 spondylolisthesis present. Broad-based protrusion flattens the thecal sac. Facet arthropathy is noted. There is mild to moderate spinal stenosis at the L4-5 level. At L3-4, there is degenerative disc disease. Broad-based protrusion flattens the thecal sac. No central or foraminal stenosis is noted. At L2-3, there is degenerative disc disease with broad-based protrusion flattening the thecal sac. No central or foraminal stenosis is noted. At T12-L1 and L1-2, disc desiccation is noted. No focal protrusion is identified. The conus medullaris is otherwise unremarkable. IMPRESSION: 1. There is multilevel degenerative disc disease noted. At L5-S1, broad-based protrusion and facet arthropathy is noted. 2. At L4-5, moderate size broad-based protrusion flattening the thecal sac with facet arthropathy. Moderate spinal stenosis is noted. 3. At L3-4, broad-based protrusion flattens the thecal sac. No central or foraminal stenosis is noted. 4. At L2-3, broad-based protrusion flattens the thecal sac. There may be some mild spinal stenosis at this level. <Electronically signed by Chioma Lloyd MD in [place]> 10/05/181716 Dictated By: Chioma Lloyd MD Dictated Date/Time: 10/05/181716 Transcribed Date/Time: 10/05/18 9796 Copy to: This report is only to be considered final once signed by the Provider(s) as displayed in the "<Electronically Signed by >" field (s). Absence of a signature indicates the report is in a draft status and still needs to be finalized. In the event this document was created by someone other than the signing Provider, the individual initiating the document will be listed in the "Entered by:" or "Dictated by:" dimas. 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 His BP remains at the low end. I don't think he is ready for re-initiation of his diuretic/ antihypertensives yet. I will obtain a cardiology consult. 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 He has evidence in his left lower leg of a L5 lesion - but this is the only sign of radicular problems. The MRI shows moderate spinal stenosis at the L4/5 level. He has this also in his hands - with marked sensory loss and muscle weakness. Clearly, we should improve his glycemic control to prevent worsening of this condition - but it is unlikely to improve. 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 Secondary diagnoses: Pulmonary nodule less than 6 cm determined by computed tomography of lung ( Chronic) Aortic stenosis (Chronic) Atrial septal defect (Chronic) Hypercholesteremia (Chronic) Left ventricular hypertrophy (Chronic) Mild mitral regurgitation (Chronic) Obesities, morbid (Chronic) I discussed the above with the patient and his and they agree to the management plan.
[2018-10-06] MEDS: Insulin ISOPH/REG 70/30 (*) 1 UNITS UNIT SUBCUT SCH ×2 (08:56→17:26)
[2018-10-06] MEDS: Aspirin EC TAB* 81 MG TAB.EC PO SCH (08:57)
[2018-10-06] MEDS: Heparin VIAL(*) 5000 UNITS/ML VIAL (FIVE THOUSAND) SUBCUT SCH ×2 (08:57→21:04)
[2018-10-06] MEDS: PTO:Liraglutide (NF) 18 MG/3 ML SUBCUT SCH (08:58)
[2018-10-06] MEDS ORDERED: Insulin LISPRO* 1 UNITS UNIT SUBCUT SCH (13:00)
[2018-10-06] MEDS: Atorvastatin* 20 MG TAB PO SCH (17:26)
[2018-10-06] MEDS ORDERED: Insulin GLARGINE(*) 1 UNITS UNIT SUBCUT SCH (21:00)
[2018-10-07] MEDS: Mometasone/Formoter 100/5 MDI INH SCH ×2 (07:50→19:57)
[2018-10-07 08:19] LABS: BUN/Creatinine Ratio 11.6 (8-20); Calcium 9.1 mg/dL (8.6-10.3); EGFR African American 69.8 (>60); EGFR Non-African American 57.7 (>60); Potassium 4.1 mmol/L (3.5-5.0)
[2018-10-07] MEDS: Aspirin EC TAB* 81 MG TAB.EC PO SCH (08:19)
[2018-10-07] MEDS: Heparin VIAL(*) 5000 UNITS/ML VIAL (FIVE THOUSAND) SUBCUT SCH ×2 (08:19→21:05)
[2018-10-07] MEDS: Insulin ISOPH/REG 70/30 (*) 1 UNITS UNIT SUBCUT SCH ×3 (08:20→18:03)
[2018-10-07] MEDS: PTO:Liraglutide (NF) 18 MG/3 ML SUBCUT SCH (08:21)
--- NOTE | 2018-10-07 08:28 | PN ---
Subjective - Subjective Reason for Note: Progress Note History: He continues to improve. He feels stronger. His blood glucose was high again yesterday, but this morning has normalized - likely because he is eating again. He has no chest pain, dyspnea, palpitations, edema, paroxysmal nocturnal dyspnea or orthopnea Active Problems: Active Problems Overdose of diuretic (Acute) T50.2X1A Systolic and diastolic CHF, chronic (Acute) I50.42 Weakness of both legs (Acute) R29.898 Wheezing (Acute) R06.2 Low back pain (Chronic) M54.5 Pulmonary nodule less than 6 cm determined by computed tomography of lung ( Chronic) R91.1 Spinal stenosis at L4-L5 level (Chronic) M48.061 Current Medications: Current Medications Aspirin (Aspirin Ec Tab*) 81 mg PO DAILY [facility] Last Admin: 10/06/18 08:57 Dose: 81 mg Atorvastatin Calcium (Lipitor*) 20 mg PO QPM [facility] Last Admin: 10/06/18 17:26 Dose: 20 mg Dextrose (D50w Syringe 50 Ml*) 12.5 gm IV PUSH .FOR FS < 60 - SS PRN PRN Reason: FS < 60 Heparin Sodium (Porcine) (Heparin Vial(*)) 5,000 units SUBCUT Q12HR [facility] Last Admin: 10/06/18 21:04 Dose: 5,000 units Insulin Glargine (Lantus(*)) 50 units SUBCUT BEDTIME [facility] Last Admin: 10/06/18 21:03 Dose: 50 unit Insulin Human Isoph/Insulin Regular (Humulin 70/30 (*)) 25 units SUBCUT 0800, 1700 [facility] Last Admin: 10/06/18 17:26 Dose: 25 units Insulin Human Lispro (Humalog*) 20 units SUBCUT 1200 [facility] Last Admin: 10/06/18 13:07 Dose: 20 units Liraglutide (Victoza (Nf)) 1.8 mg SUBCUT DAILY [facility] Last Admin: 10/06/18 08:58 Dose: 1.8 mg Mometasone Furoate/Formoterol Fumar (Dulera 100/5 Mdi*) 2 puff INH BID [facility] Last Admin: 10/07/18 07:50 Dose: 2 puff Home Medications: Home Medications Medication Instructions Recorded Confirmed Type Ramipril CAP* [Altace CAP*] 2.5 mg PO DAILY 02/24/15 10/03/18 History Liraglutide [Victoza 3-Brian] 1.8 mg SUBCUT DAILY 06/16/15 10/03/18 History Aspirin EC TAB* [Ecotrin EC Low 81 mg PO DAILY 02/07/16 10/03/18 History Dose 81 MG*] Simvastatin [Zocor 40 MG (NF)] 40 mg PO QPM 02/07/16 10/03/18 History Insulin ISOPH/REG /30 (*) 60 units SUBCUT BEDTIME MDD 200 08/15/17 10/03/18 History [HumuLIN 70/30 (*)] units Metoprolol Succinate XL TAB* 25 mg PO DAILY 08/15/17 10/03/18 History [Toprol XL TAB*] Furosemide TAB* [Lasix TAB*] 40 mg PO BID #180 tab 08/17/17 10/03/18 Rx Spironolactone TAB* [Aldactone TAB 25 mg PO DAILY #90 tab 08/17/17 10/03/18 Rx 25 MG*] Allergies: Allergies Allergy/AdvReac Type Severity Reaction Status Date / Time No Known Allergies Allergy Verified 08/15/17 11:25 Objective - Vital Signs Vital Signs: Vital Signs 10/06/18 10/06/18 10/06/18 11:19 15:57 19:03 Temperature 98.6 F Pulse Rate 89 87 Respiratory 16 16 18 Rate Blood Pressure 102/57 (mmHg) O2 Sat by Pulse 98 93 Oximetry 10/06/18 10/06/18 10/07/18 20:00 23:55 07:13 Temperature 97.2 F 97.7 F Pulse Rate 84 89 Respiratory 18 16 16 Rate Blood Pressure 107/55 99/56 (mmHg) O2 Sat by Pulse 96 96 Oximetry 10/07/18 07:52 Temperature Pulse Rate 82 Respiratory 14 Rate Blood Pressure (mmHg) O2 Sat by Pulse 96 Oximetry - Intake and Output Intake and Output: Intake & Output 10/04/18 10/05/18 10/06/18 10/07/18 11:59 11:59 11:59 11:59 Intake Total 1155 1236 480 580 Output Total 407 1350 1775 900 Balance 380 -114 -1295 -320 Weight 375 lb 257 lb 12.8 oz 254 lb 4.8 oz 253 lb 1.6 oz Intake: IV Fluids 1055 1236 NS 1055 1236 Oral 100 0 480 580 Output: Urine 775 1350 1775 900 Other: Estimated Void Large Large # Bowel Movements 1 1 Estimated Stool Amount Large Small # Voids 0 1 ADLs: Meal Record Start: 10/03/18 13: 44 Freq: DAILY@0900,1400,1800 Status: Active Protocol: Created 10/03/18 13:44 System (Rec: 10/03/18 13:44 System [id number]) Document 10/03/18 18:00 [id number] (Rec: 10/03/18 19:11 [id number] TELE-C11) Document 10/04/18 09:00 [id number] (Rec: 10/04/18 12:55 [id number] TELE-C06) Document 10/04/18 14:00 [id number] (Rec: 10/04/18 14:17 [id number] TELE-C06) Document 10/04/18 18:00 [id number] (Rec: 10/04/18 23:35 [id number] TELE-C06) Document 10/05/18 09:00 [id number] (Rec: 10/05/18 15:09 [id number] TELE-C11) Document 10/05/18 14:00 [id number] (Rec: 10/05/18 15:08 [id number] TELE-C11) Document 10/05/18 18:00 [id number] (Rec: 10/05/18 19:37 [id number] TELE-C01) Document 10/06/18 09:00 [id number] (Rec: 10/06/18 10:59 [id number] TELE-C11) Document 10/06/18 14:00 [id number] (Rec: 10/06/18 15:11 [id number] TELE-C11) Document 10/06/18 18:00 [id number] (Rec: 10/06/18 22:40 [id number] TELE-C10) Intake and Output Start: 10/03/18 03: 21 Freq: Status: Active Protocol: Created 10/03/18 03:21 System (Rec: 10/03/18 03:21 System ED-C05) Intake and Output Start: 10/03/18 13: 44 Freq: DAILY@0600,1400,2200 Status: Active Protocol: Created 10/03/18 13:44 System (Rec: 10/03/18 13:44 System TELE-M14) Document 10/03/18 22:00 [id number] (Rec: 10/03/18 22:49 [id number] TELE-C11) Document 10/04/18 06:00 [id number] (Rec: 10/04/18 07:17 [id number] TELE-C07) Document 10/04/18 14:00 [id number] (Rec: 10/04/18 14:17 [id number] TELE-C06) Document 10/04/18 22:00 [id number] (Rec: 10/04/18 23:37 [id number] TELE-C06) Document 10/05/18 05:43 [id number] (Rec: 10/05/18 05:44 [id number] TELE-C06) Document 10/05/18 14:00 [id number] (Rec: 10/05/18 15:08 [id number] TELE-C11) Document 10/05/18 22:00 [id number] (Rec: 10/05/18 22:11 [id number] TELE-C11) Document 10/06/18 05:40 [id number] (Rec: 10/06/18 05:40 [id number] TELE-C32) Document 10/06/18 14:00 [id number] (Rec: 10/06/18 15:11 [id number] TELE-C11) Document 10/06/18 22:00 [id number] (Rec: 10/06/18 22:45 [id number] TELE-C10) Document 10/07/18 06:00 [id number] (Rec: 10/07/18 06:19 [id number] TELE-C10) - Physical Exam General Physical Exam Comment: Warm and well perfused - in good spirits. General: No Cyanosis, No Anemia, No Jaundice Lungs and Chest: Yes: Chest Expansion Full, Chest Expansion Symetrica, Percussion Note Resonant, Vessicular Breath Sounds. No: Crackles, Wheezes Heart Rate and Rhythm: Regular Additional Cardiovascular: Yes: Normal Heart Sounds, Heart Murmur, Pedal Edema Abdominal Exam: Yes: Soft, Bowel Sounds Present. No: Distention, Abdominal Tenderness Results - Results Lab Results: Laboratory Results - last 24 hr 10/06/18 10/06/18 10/06/18 12:15 16:57 20:17 Sodium Potassium Chloride Carbon Dioxide Anion Gap BUN Creatinine Est GFR ( Amer) Est GFR (Non-Af Amer) BUN/Creatinine Ratio Glucose POC Glucose (mg/dL) 303 H 231 H 152 H Calcium 10/07/18 10/07/18 07:41 07:45 Sodium 134 L Potassium 4.1 Chloride 101 Carbon Dioxide 25 Anion Gap 8 BUN 14 Creatinine 1.21 H Est GFR ( Amer) 69.8 Est GFR (Non-Af Amer) 57.7 BUN/Creatinine Ratio 11.6 Glucose 101 H POC Glucose (mg/dL) 94 Calcium 9.1 Assessment - Problem List Assessment: Patient Problems Overdose of diuretic (Acute) Systolic and diastolic CHF, chronic (Acute) Weakness of both legs (Acute) Wheezing (Acute) Low back pain (Chronic) Pulmonary nodule less than 6 cm determined by computed tomography of lung ( Chronic) Spinal stenosis at L4-L5 level (Chronic) Aortic stenosis (Chronic) Atrial septal defect (Chronic) Hypercholesteremia (Chronic) Left ventricular hypertrophy (Chronic) Mild mitral regurgitation (Chronic) Obesities, morbid (Chronic) Type 2 diabetes mellitus with neurological manifestations, 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 I have spoken with cardiology who will reintroduce his medication for his complex cardiac syndrome. Weakness of both legs (Acute) Type 2 diabetes mellitus with neurological manifestations, uncontrolled (Chronic)Low back pain (Chronic) Spinal stenosis at L4-L5 level (Chronic) This is secondary to severe neuropathy. A component of his weakness is from the volume contraction/orthostatic hypotension. We will mobilize him today with his participating. Maybe he will be able to go home with VNS and home PT Wheezing (Acute) He is having an MDI Secondary diagnoses Pulmonary nodule less than 6 cm determined by computed tomography of lung ( Chronic) Atrial septal defect (Chronic) Hypercholesteremia (Chronic) Left ventricular hypertrophy (Chronic) Obesities, morbid (Chronic) Type 2 diabetes mellitus, uncontrolled, with renal complications (Chronic) I discussed the above with the patient and his - they agree to this management plan.
[2018-10-07] MEDS: Metoprolol Succinate XL TAB* 25 MG PO SCH (11:22)
--- NOTE | 2018-10-07 12:55 | CONS ---
CONSULTATION REPORT: DATE OF CONSULT: 10/07/18 ATTENDING PHYSICIAN: Dr. Rajni Inman, Cardiology (dictated by Analia Olmstead NP). PRIMARY PAYING TELLER: Dr. Rajni Inman. CHIEF COMPLAINT: Weakness, status post fall, hypotension. HISTORY OF PRESENT ILLNESS: This is a pleasant 78-year-old male patient who follows with Dr. Rajni Inman of our practice due to known history of diabetes, aortic stenosis, hyperlipidemia, chronic kidney disease, diastolic heart failure , mitral regurgitation and coronary artery disease. The patient was actually evaluated in our practice on 09/25/18. At that time, he was noted to be hypotensive, systolic pressure 80s; ramipril was reduced and he was supposed to have outpatient basic metabolic panel; however, unfortunately that did not occur. He was complaining of weakness at that time. According to the patient and his , weakness was progressive and on after getting up out of bed he actually fell, which resulted in him presenting to [facility]. While being evaluated in the emergency department, he was found to be in acute on chronic renal failure with minimal troponin evaluation at 0.04. He was admitted to telemetry where his diuretics were held. His renal function has improved back to his baseline creatinine 1.2. Upon serial review of prior BMPs, it appears that his baseline creatinine is 1.3 to 1.5. He states that weakness has grossly improved. He denies dizziness, lightheadedness, denies ever having chest pain, syncope, palpitation , sensation of heart racing, edema, orthopnea or nausea, vomiting, diarrhea, fever or chills. He states otherwise, he has been in his usual state of health. His is at the bedside and has been informative in regards to symptomatology. Last echocardiogram on 09/17/17, at that time LVEF was 45% to 50% with mild to moderate LVH, trace aortic insufficiency, xdml-cv-mzlybenk aortic stenosis, mean gradient 9.7. 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 Last ischemic evaluation was via Lexiscan stress test 03/30/17. At that time, regadenoson ECG portion was negative, EF 39%. There was no reversible ischemia identified; however, there was decreased activity in the inferior wall possibly related to attenuation artifact. PAST MEDICAL HISTORY: Includes: 1. Diabetes. 2. Aortic stenosis. 3. Diastolic heart failure. 4. Obstructive sleep apnea. 5. Mitral regurgitation. 6. Chronic kidney disease. 7. ASD. 8. Hyperlipidemia. 9. Coronary artery disease. PAST SURGICAL HISTORY: Includes partial amputation of left foot, bilateral cataract extraction in 2014. MEDICATIONS: Home medications prior to admission include: 1. Ramipril 2.5 mg a day. 2. Metoprolol 25 mg a day. 3. Aldactone 25 mg a day. 4. Simvastatin 40 mg a day. 5. Aspirin 81 mg a day. 6. Lasix 40 mg p.o. b.i.d. 7. Victoza 1.8 mg subcutaneous daily. 8. Humulin 70/30 60, units subcutaneous q.h.s. ALLERGIES: No known drug allergies. FAMILY HISTORY: Noncontributory. 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 He is , lives at home with his . Ambulates with a walker. Denies alcohol, tobacco or drug abuse. REVIEW OF SYSTEMS: All systems have been reviewed and otherwise negative except what is mentioned in the HPI. PHYSICAL EXAM: Temperature is currently 97.7, pulse 89, respirations 16, oxygenation 96% on room air, blood pressure 99/56. General: The patient is lying in bed upon entering the room with at bedside, appears in no apparent distress, cooperative with exam, A and O x3. HEENT: Head is atraumatic, normocephalic. Oral mucosa is moist. Tongue is midline. Neck: Supple. No thyromegaly noted. Cardiac: Normal S1, S2. Regular rate and rhythm. There is an early systolic aortic valve murmur 3/6 radiating to the right carotid. There is also a 2/5 diastolic mitral murmur noted underneath the left axilla. No gallop or rub. Lungs: Clear with auscultation. Respirations are nonlabored. No evidence of retractions. /GI: Abdomen is protuberant, firm, nontender with normoactive bowel sounds x4. Extremities: Trace pretibial edema noted bilaterally. Otherwise no clubbing, no cyanosis. The patient does have discoloration involving pretibial surface consistent with venous insufficiency. DIAGNOSTIC STUDIES/LAB DATA: Blood work obtained on 10/07/18, sodium 134, potassium 4.1, chloride 101, carbon dioxide 25, BUN 14, creatinine 1.2, glucose 101. CBC 10/04/18, white count 6.5, hemoglobin 12.2, hematocrit 36, platelets 223. Renal ultrasound on 10/03/18 revealed no renal cortical atrophy or obstructive uropathy. Chest x-ray on 10/03/18 demonstrated per Radiology report, mild pulmonary vascular congestion and alveolar and interstitial edema. ECG on 10/03/18, normal sinus rhythms, rate of 79 with no overt ischemic changes appreciated. ASSESSMENT AND PLAN: 1. History of heart failure with moderate reduction in ejection fraction; NYHA Functional Class II to III stage C, the patient is compensated on physical examination. It appears that the patient had actually been volume contracted upon presentation with acute on chronic renal failure. Renal function has returned to his baseline. He denies dizziness, lightheadedness. Blood pressure is still somewhat hypotensive although it has drastically improved. We will reinitiate metoprolol at 12.5 mg a day. He is to have close cardiac followup next week to assess whether or not DEB inhibitor can be restarted. At this current time, I recommend not restarting Aldactone or Lasix therapy. We will reassess the volume status next week in our office. LVEF was 45% to 50% on 09/17/17 via transthoracic echocardiogram. He was suppose to have outpatient echo tomorrow for re assessment of , given he is still admitted will order study to be done today and cancel outpatient echo. 2. History of bhwytwzx-fi-cufurj mitral regurgitation and mctn-oc-fdncptaj aortic stenosis. The patient is compensated on physical examination. We will restart metoprolol therapy. We will reassess symptomatology next week in office. Mean aortic valve gradient was 9.7 on recent echocardiogram. In the past, the patient has been evaluated in [place] for possible mitral valve clip and was deemed not a surgical candidate. 3. Troponinemia. Troponin peaked upon presentation at 0.04. This is in the setting of acute on chronic renal failure. He denies ever experiencing chest pain. There was no ischemic ECG changes appreciated. We will continue aspirin, statin and beta-blockade therapy at this time. 4. History of hyperlipidemia, on statin therapy. Goal LDL less than 70 given history of diabetes and coronary artery disease. 5. History of chronic kidney disease with acute on chronic renal failure at presentation. Creatinine has normalized to 1.2, which is reflective of his baseline. We will continue to hold Lasix, Aldactone, and ramipril therapy at this current time. 6. Disposition: Pending course. Dr. Rajni Inman has personally seen and examined the patient. He agrees the above assessment and plan. ANALIA OLMSTEAD, TELEPHONE LINEMAN [id number]/CPS #: [id number] FAXTON HOSPITALIsauro
[2018-10-07] MEDS: Insulin LISPRO* 1 UNITS UNIT SUBCUT SCH ×3 (13:16→21:06)
[2018-10-07] MEDS ORDERED: Insulin ISOPH/REG 70/30 (*) 1 UNITS UNIT SUBCUT SCH (17:00)
--- NOTE | 2018-10-07 17:03 | ECHO ---
Patient: ANJELICA WALTER [facility] Rec#: [id number] : 07/09/1939 Date: 10/07/2018 Age: 79y Height: 187.96 cm / 74.0 in Weight: 114.76 kg / 252.9 lbs Sex: M BSA: 2.4 Room#: 434 Admit Date#: 10/03/2018 Type: Inpatient Referring: Analia Olmstead Reading: Rajni Inman MD Banquet Lead: Sophia Villa RDCS,RDMS CC: Roque Arevalo MD Transthoracic Echocardiogram Indication: Elevated TROP, Valvular disease BP: 99/56 HR: 87 Rhythm: NSR Findings History: Cardiomyopathy, HLD, DM, CHF, edema, PFO, MV disorder, AOV stenosis Technical Comments: The study quality is fair. Left Ventricle: The left ventricular chamber size is normal. Mild concentric left ventricular hypertrophy is observed. There is global hypokinesis of the left ventricle with minor regional variation.septal hypokinesis. The estimated ejection fraction is 45-50%. Left Atrium: The left atrium is mild to moderately dilated. Right Ventricle: The right ventricular cavity size is normal. The right ventricular global systolic function is mildly reduced. Right Atrium: The right atrial cavity size is normal. Aortic Valve: The aortic valve is trileaflet. The aortic valve leaflets are moderately thickened. Systolic excursion of the aortic valve cusps is reduced. There is aortic annular calcification. There is no evidence of aortic regurgitation. There is moderate aortic stenosis. The mean gradient of the aortic valve is 14 mmHg. The aortic valve area, by peak velocities, is calculated at 1 cm2. Highest aortic valve velocity was acquired with Pedoff in apical position. Mitral Valve: There is mitral annular calcification. The mitral valve leaflets are mildly thickened. There is moderate to severe mitral regurgitation. moderate on visual estimate, PISA suggestive of moderate to severe. There is borderline mitral stenosis. Tricuspid Valve: The tricuspid valve leaflets are normal. There is no evidence of tricuspid valve regurgitation. Unable to estimate the right ventricular systolic pressure. Pulmonic Valve: The pulmonic valve appears normal. There is trace to mild pulmonic regurgitation. Pericardium: There is no significant pericardial effusion. Aorta: The aortic root appears normal. There is no dilatation of the aortic arch. Pulmonary Artery: The main pulmonary artery is not well visualized. Venous: The inferior vena cava appears normal in size. There is a greater than 50% respiratory change in the inferior vena cava dimension. Conclusions Mild concentric left ventricular hypertrophy is observed. There is global hypokinesis of the left ventricle with additional septal hypokinesis. The estimated ejection fraction is 45-50%. The right ventricular global systolic function is mildly reduced. The left atrium is mild to moderately dilated. There is moderate calcific aortic stenosis. The mean gradient of the aortic valve is 14 mmHg. DI = 0.32. The aortic valve area, by peak velocities, is calculated at 1 cm2. There is mitral annular calcification. There is borderline mitral stenosis. There is moderate to severe mitral regurgitation. Compared with prior NINFA 09/17/17, EF is stable, RV function is stable, stable, prior KEYSHA 1.1 cm2, prior DI 0.31. MR stable, mod to severe (ruptured cordae and flail leaflet described). Measurements Name Value Normal Range RVIDd (AP) 2D 2.7 cm (0.9 - 2.6) RVDdMajor (2D) 2.4 cm (2.2 - 4.4) RAd ISD 4CH 4.6 cm (3.4 - 4.9) RA (A4C)W 4.5 cm (2.9 - 4.6) IVSd (2D) 1.1 cm (0.6 - 1) LVPWd (2D) 1.2 cm (0.6 - 1) LVIDd (2D) 4.8 cm (3.6 - 5.4) LVIDs (2D) 4.1 cm - LV FS (2D) 13 % (25 - 45) Aortic Annulus 2.2 cm (1.4 - 2.6) Ao root diameter (2D) 3.3 cm (2.1 - 3.5) Ascending Ao 3.4 cm (2.1 - 3.4) Aortic arch 3.1 cm (1.8 - 3.4) LA dimension (AP) 2D 4.9 cm (2.3 - 3.8) LAd ISD 4CH 5.7 cm (2.9 - 5.3) LA ISD 4CH W 5.5 cm (2.5 - 4.5) Name Value Normal Range LA ESV SP 4CH (A/L) 103.78 ml - LA ESV SP 2CH (A/L) 71.52 ml - LA ESV BP (A/L) 87.19 ml - LA ESV BP (A/L) index 36 ml/m2 - LA ESV SP 4CH (MOD) 97.36 ml - LA ESV SP 2CH (MOD) 67.63 ml - Name Value Normal Range MV E-wave Vmax 0.8 m/sec - MV deceleration time 159 msec - MV A-wave Vmax 1.3 m/sec - MV E:A ratio 0.6 ratio - LV septal e' Vmax 0.05 m/sec - LV lateral e' Vmax 0.07 m/sec - LV E:e' septal ratio 16 ratio - LV E:e' lateral ratio 11 ratio - Name Value Normal Range AV Vmax 2.6 m/sec - AV VTI 56 cm - AV peak gradient 27 mmHg - AV mean gradient 14 mmHg - LVOT diameter 2 cm - LVOT Vmax 0.8 m/sec - LVOT VTI 18 cm - LVOT peak gradient 2.6 mmHg - LVOT mean gradient 1.5 mmHg - KEYSHA (continuity Vmax) 1 cm2 - KEYSHA (continuity VTI) 1 cm2 - MONTEZ Vmax 0.5 m/sec - Name Value Normal Range MV Vmax 1.5 m/sec - MV VTI 28.5 cm - MV peak gradient 9 mmHg - MV mean gradient 3.8 mmHg - MV PHT 66 msec - MR Vmax 5.1 m/sec - MR VTI 150 cm - MR volume (PISA) 58 ml - MR flow (PISA) 200 ml/sec - MR ERO 0.4 cm2 - MR PISA radius 0.9 cm - MR alias Vmax 37 cm/sec - MVA (PHT) 3.3 cm2 - MVA (continuity VTI) 1.9 cm2 - Name Value Normal Range RAP 8 mmHg - IVC diameter 1.3 cm - Name Value Normal Range PV Vmax 0.7 m/sec - PV peak gradient 2 mmHg -
[2018-10-07] MEDS: Atorvastatin* 20 MG TAB PO SCH (18:02)
[2018-10-08] MEDS: Mometasone/Formoter 100/5 MDI INH SCH (07:45)
[2018-10-08] MEDS: Insulin LISPRO* 1 UNITS UNIT SUBCUT SCH (07:57)
[2018-10-08 07:58] VITALS: BP 104/60
--- NOTE | 2018-10-08 08:11 | PN ---
Subjective - Subjective Reason for Note: Discharge Note History: He is feeling much improved and is ready for discharge. Active Problems: Active Problems Overdose of diuretic (Acute) T50.2X1A Systolic and diastolic CHF, chronic (Acute) I50.42 Weakness of both legs (Acute) R29.898 Wheezing (Acute) R06.2 Low back pain (Chronic) M54.5 Pulmonary nodule less than 6 cm determined by computed tomography of lung ( Chronic) R91.1 Spinal stenosis at L4-L5 level (Chronic) M48.061 Current Medications: Current Medications Aspirin (Aspirin Ec Tab*) 81 mg PO DAILY [facility] Last Admin: 10/07/18 08:19 Dose: 81 mg Atorvastatin Calcium (Lipitor*) 20 mg PO QPM [facility] Last Admin: 10/07/18 18:02 Dose: 20 mg Dextrose (D50w Syringe 50 Ml*) 12.5 gm IV PUSH .FOR FS < 60 - SS PRN PRN Reason: FS < 60 Heparin Sodium (Porcine) (Heparin Vial(*)) 5,000 units SUBCUT Q12HR [facility] Last Admin: 10/07/18 21:05 Dose: 5,000 units Insulin Human Isoph/Insulin Regular (Humulin 70/30 (*)) 30 units SUBCUT 0800, 1200,1700 [facility] Last Admin: 10/07/18 18:03 Dose: 30 units Insulin Human Lispro (Humalog*) 0 - 6 units SUBCUT ACHS [facility]; Protocol Last Admin: 10/08/18 07:57 Dose: Not Given Liraglutide (Victoza (Nf)) 1.8 mg SUBCUT DAILY [facility] Last Admin: 10/07/18 08:21 Dose: 1.8 mg Metoprolol Succinate (Toprol Xl Tab*) 12.5 mg PO DAILY [facility] Last Admin: 10/07/18 11:22 Dose: 12.5 mg Mometasone Furoate/Formoterol Fumar (Dulera 100/5 Mdi*) 2 puff INH BID [facility] Last Admin: 10/08/18 07:45 Dose: 2 puff Home Medications: Home Medications Medication Instructions Recorded Confirmed Type Ramipril CAP* [Altace CAP*] 2.5 mg PO DAILY 02/24/15 10/03/18 History Liraglutide [Victoza 3-Brian] 1.8 mg SUBCUT DAILY 06/16/15 10/03/18 History Aspirin EC TAB* [Ecotrin EC Low 81 mg PO DAILY 02/07/16 10/03/18 History Dose 81 MG*] Simvastatin [Zocor 40 MG (NF)] 40 mg PO QPM 02/07/16 10/03/18 History Insulin ISOPH/REG 70/30 (*) 60 units SUBCUT BEDTIME MDD 200 08/15/17 10/03/18 History [HumuLIN 70/30 (*)] units Metoprolol Succinate XL TAB* 25 mg PO DAILY 08/15/17 10/03/18 History [Toprol XL TAB*] Furosemide TAB* [Lasix TAB*] 40 mg PO BID #180 tab 08/17/17 10/03/18 Rx Spironolactone TAB* [Aldactone TAB 25 mg PO DAILY #90 tab 08/17/17 10/03/18 Rx 25 MG*] Allergies: Allergies Allergy/AdvReac Type Severity Reaction Status Date / Time No Known Allergies Allergy Verified 08/15/17 11:25 Objective - Vital Signs Vital Signs: Vital Signs 10/07/18 10/07/18 10/07/18 11:15 14:15 14:18 Temperature 97.7 F Pulse Rate 92 96 Respiratory 19 Rate Blood Pressure 112/68 105/59 113/68 (mmHg) O2 Sat by Pulse 96 Oximetry 10/07/18 10/07/18 10/07/18 14:21 15:59 19:59 Temperature 97.8 F 97.7 F Pulse Rate 108 90 93 Respiratory 19 20 20 Rate Blood Pressure 122/56 104/59 (mmHg) O2 Sat by Pulse 97 97 92 Oximetry 10/07/18 10/07/18 10/08/18 20:00 23:49 07:00 Temperature 98.2 F Pulse Rate 85 Respiratory 20 16 16 Rate Blood Pressure 123/80 (mmHg) O2 Sat by Pulse 96 Oximetry 10/08/18 10/08/18 07:20 07:46 Temperature 98.2 F Pulse Rate 81 85 Respiratory 16 14 Rate Blood Pressure 104/60 (mmHg) O2 Sat by Pulse 95 96 Oximetry - Intake and Output Intake and Output: Intake & Output 10/05/18 10/06/18 10/07/18 10/08/18 11:59 11:59 11:59 11:59 Intake Total 1236 480 580 250 Output Total 1350 9765 900 725 Balance -114 -1295 -320 -475 Weight 257 lb 12.8 oz 254 lb 4.8 oz 253 lb 1.6 oz 252 lb 6.4 oz Intake: IV Fluids 1236 NS 1236 Oral 0 480 580 250 Output: Urine 1350 1775 900 725 Other: Estimated Void Large Large # Bowel Movements 1 Estimated Stool Amount Small Small # Voids 0 1 2 ADLs: Meal Record Start: 10/03/18 13: 44 Freq: DAILY@0900,1400,1800 Status: Active Protocol: Created 10/03/18 13:44 System (Rec: 10/03/18 13:44 System [id number]) Document 10/03/18 18:00 [id number] (Rec: 10/03/18 19:11 [id number] TELE-C11) Document 10/04/18 09:00 [id number] (Rec: 10/04/18 12:55 [id number] TELE-C06) Document 10/04/18 14:00 [id number] (Rec: 10/04/18 14:17 [id number] TELE-C06) Document 10/04/18 18:00 [id number] (Rec: 10/04/18 23:35 [id number] TELE-C06) Document 10/05/18 09:00 [id number] (Rec: 10/05/18 15:09 [id number] TELE-C11) Document 10/05/18 14:00 [id number] (Rec: 10/05/18 15:08 [id number] TELE-C11) Document 10/05/18 18:00 [id number] (Rec: 10/05/18 19:37 [id number] TELE-C01) Document 10/06/18 09:00 [id number] (Rec: 10/06/18 10:59 [id number] TELE-C11) Document 10/06/18 14:00 [id number] (Rec: 10/06/18 15:11 [id number] TELE-C11) Document 10/06/18 18:00 VUF0211 (Rec: 10/06/18 22:40 [id number] TELE-C10) Document 10/07/18 09:00 [id number] (Rec: 10/07/18 14:54 [id number] TELE-C03) Document 10/07/18 14:00 [id number] (Rec: 10/07/18 14:55 [id number] TELE-C03) Document 10/07/18 18:00 AZD2031 (Rec: 10/07/18 18:41 [id number] HOSP-C11) Intake and Output Start: 10/03/18 03: 21 Freq: Status: Active Protocol: Created 10/03/18 03:21 System (Rec: 10/03/18 03:21 System ED-C05) Intake and Output Start: 10/03/18 13: 44 Freq: DAILY@0600,1400,2200 Status: Active Protocol: Created 10/03/18 13:44 System (Rec: 10/03/18 13:44 System TELE-M14) Document 10/03/18 22:00 [id number] (Rec: 10/03/18 22:49 [id number] TELE-C11) Document 10/04/18 06:00 [id number] (Rec: 10/04/18 07:17 [id number] TELE-C07) Document 10/04/18 14:00 [id number] (Rec: 10/04/18 14:17 [id number] TELE-C06) Document 10/04/18 22:00 [id number] (Rec: 10/04/18 23:37 [id number] TELE-C06) Document 10/05/18 05:43 [id number] (Rec: 10/05/18 05:44 [id number] TELE-C06) Document 10/05/18 14:00 [id number] (Rec: 10/05/18 15:08 [id number] TELE-C11) Document 10/05/18 22:00 EQC2009 (Rec: 10/05/18 22:11 [id number] TELE-C11) Document 10/06/18 05:40 [id number] (Rec: 10/06/18 05:40 [id number] TELE-C32) Document 10/06/18 14:00 VQD8495 (Rec: 10/06/18 15:11 [id number] TELE-C11) Document 10/06/18 22:00 HUG6013 (Rec: 10/06/18 22:45 [id number] TELE-C10) Document 10/07/18 06:00 AVV5423 (Rec: 10/07/18 06:19 [id number] TELE-C10) Document 10/07/18 14:00 [id number] (Rec: 10/07/18 14:55 [id number] TELE-C03) Document 10/07/18 22:00 [id number] (Rec: 10/07/18 22:24 [id number] TELE-C11) Document 10/08/18 06:00 [id number] (Rec: 10/08/18 06:06 [id number] TELE-C34) - Physical Exam General: No Cyanosis, No Anemia, No Jaundice, No Clubbing Lungs and Chest: Yes: Chest Expansion Full, Chest Expansion Symetrica, Percussion Note Resonant, Vessicular Breath Sounds. No: Crackles, Wheezes Heart Rate and Rhythm: Regular Additional Cardiovascular: Yes: Normal Heart Sounds, Heart Murmur. No: Pedal Edema Abdominal Exam: Yes: Soft, Bowel Sounds Present. No: Distention, Abdominal Tenderness Results - Results Lab Results: Laboratory Results - last 24 hr 10/07/18 10/07/18 10/07/18 07:41 12:04 16:58 Sodium 134 L Potassium 4.1 Chloride 101 Carbon Dioxide 25 Anion Gap 8 BUN 14 Creatinine 1.21 H Est GFR ( Amer) 69.8 Est GFR (Non-Af Amer) 57.7 BUN/Creatinine Ratio 11.6 Glucose 101 H POC Glucose (mg/dL) 120 H 199 H Calcium 9.1 10/07/18 10/08/18 20:45 07:33 Sodium Potassium Chloride Carbon Dioxide Anion Gap BUN Creatinine Est GFR ( Amer) Est GFR (Non-Af Amer) BUN/Creatinine Ratio Glucose POC Glucose (mg/dL) 178 H 131 H Calcium Assessment - Problem List Assessment: Patient Problems Overdose of diuretic (Acute) Systolic and diastolic CHF, chronic (Acute) Weakness of both legs (Acute) Wheezing (Acute) Low back pain (Chronic) Pulmonary nodule less than 6 cm determined by computed tomography of lung ( Chronic) Spinal stenosis at L4-L5 level (Chronic) Aortic stenosis (Chronic) Atrial septal defect (Chronic) Hypercholesteremia (Chronic) Left ventricular hypertrophy (Chronic) Mild mitral regurgitation (Chronic) Obesities, morbid (Chronic) Type 2 diabetes mellitus with neurological manifestations, 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 I have also reviewed the consultation report from Analia Olmstead NP. I am discharging him directly home with increased support as detailed by Ama Toro RN in her case management note and by the director social welfare. He will follow with me as an outpatient in 1 week. I discussed this with the patient, his and daughter and they agree with this plan.
[2018-10-08] MEDS: Metoprolol Succinate XL TAB* 25 MG PO SCH (08:36)
[2018-10-08] MEDS: Aspirin EC TAB* 81 MG TAB.EC PO SCH (08:36)
[2018-10-08] MEDS: Insulin ISOPH/REG 70/30 (*) 1 UNITS UNIT SUBCUT SCH (08:37)
[2018-10-08] MEDS: PTO:Liraglutide (NF) 18 MG/3 ML SUBCUT SCH (08:38)
[2018-10-08] MEDS: Heparin VIAL(*) 5000 UNITS/ML VIAL (FIVE THOUSAND) SUBCUT SCH (08:38)
--- NOTE | 2018-10-08 09:35 | PN ---
Subjective Date of Service: 10/08/18 - cc: weakness Interval History: Pt anxious to go home, walking well with PT. No SOB, legs still free of edema. He feels well. Medications Active Medications: Aspirin (Aspirin Ec Tab*) 81 mg PO DAILY [facility] Last Admin: 10/08/18 08:36 Dose: 81 mg Atorvastatin Calcium (Lipitor*) 20 mg PO QPM [facility] Last Admin: 10/07/18 18:02 Dose: 20 mg Dextrose (D50w Syringe 50 Ml*) 12.5 gm IV PUSH .FOR FS < 60 - SS PRN PRN Reason: FS < 60 Heparin Sodium (Porcine) (Heparin Vial(*)) 5,000 units SUBCUT Q12HR [facility] Last Admin: 10/08/18 08:38 Dose: 5,000 units Insulin Human Isoph/Insulin Regular (Humulin 70/30 (*)) 30 units SUBCUT 0800, 1200,1700 [facility] Last Admin: 10/08/18 08:37 Dose: 30 units Insulin Human Lispro (Humalog*) 0 - 6 units SUBCUT ACHS [facility]; Protocol Last Admin: 10/08/18 07:57 Dose: Not Given Liraglutide (Victoza (Nf)) 1.8 mg SUBCUT DAILY [facility] Last Admin: 10/08/18 08:38 Dose: 1.8 mg Metoprolol Succinate (Toprol Xl Tab*) 12.5 mg PO DAILY [facility] Last Admin: 10/08/18 08:36 Dose: 12.5 mg Mometasone Furoate/Formoterol Fumar (Dulera 100/5 Mdi*) 2 puff INH BID [facility] Last Admin: 10/08/18 07:45 Dose: 2 puff Objective Vital Signs: Temp Pulse Resp BP Pulse Ox 98.2 F 85 14 104/60 96 10/08/18 07:20 10/08/18 07:46 10/08/18 07:46 10/08/18 07:20 10/08/18 07:46 Oxygen Devices in Use Now: None Appearance: Overweight male, 78 lying 20 degrees, comfortable. Eyes: No Scleral Icterus, PERRLA Ears/Nose/Mouth/Throat: Mucous Membranes Moist Neck: Trachea Midline Respiratory: Symmetrical Chest Expansion and Respiratory Effort - occ. wheezes, unchanged from yesterday Cardiovascular: RRR - pansystolic low pitched murmur apex, 2/6 systolic murmur USB, stable. Skin: - - darkening c/w chronic v. stasis, trace edema Neurological: - - speech excellent, comprehension at baseline, walking with PT at or near baseline per nursing. Laboratory Results: 10/04/18 04:33 10/07/18 07:41 Total Bilirubin 0.30 mg/dL (0.2-1.0) 10/04/18 04:33 AST 15 U/L (13-39) 10/04/18 04:33 ALT 12 U/L (7-52) 10/04/18 04:33 Alkaline Phosphatase 72 U/L (34-104) 10/04/18 04:33 B-Natriuretic Peptide 48 pg/mL (<=100) 10/04/18 04:33 Total Protein 6.7 g/dL (6.4-8.9) 10/04/18 04:33 Albumin 3.5 g/dL (3.2-5.2) 10/04/18 04:33 Globulin 3.2 g/dL (2-4) 10/04/18 04:33 Albumin/Globulin Ratio 1.1 (1-3) 10/04/18 04:33 TSH 2.96 mcIU/mL (0.34-5.60) 10/03/18 03:30 10/03/18 10/03/18 10/03/18 03:30 15:35 19:37 Troponin I 0.04 H* 0.04 H* 0.03 Diagnostic Imaging: ECHO 10/07/18: EF 45%, moderate , KEYSHA 1 cm2, mod-sev. MR, RV hypokinetic. Stable. Assessment/Plan 78 yo gentleman with longstanding DM, HTN and over the last 2 years episodes of altered mentation and episodes of CHF. Valvular heart disease, patient underwent extensive evaluation in [place] and felt too high risk for surgical or procedural intervention. He has been medically managed with BB, ACEI, diuretics. He presented overdiuresed and hypotensive with pre renal renal insufficiency, resolved off of the above meds. Agree ready for discharge. Leaving on BB only. Will likely need diuretics added back at lower doses, has appt with cardiology Friday. will check daily weights, hoping a better scale can be obtained soon for more accurate and safer home weights.
--- NOTE | 2018-10-08 11:47 | DS ---
CC: Dr. Rajni Inman* DISCHARGE SUMMARY: DATE OF ADMISSION: 10/03/18 DATE OF DISCHARGE: 10/08/18 DISCHARGE DIAGNOSES: 1. Prerenal failure volume contraction due to overuse of diuretics. 2. Congestive cardiac failure. 3. Comorbidities. 4. Type 2 diabetes mellitus with insulin resistance and hyperglycemia. 5. Moderate mitral and aortic stenosis. 6. Systolic and diastolic dysfunction. 7. 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 8. L4-5 spinal stenosis affecting left lower leg. SECONDARY DIAGNOSES: 1. Obesity. 2. Low back pain. 3. Dyslipidemia. HISTORY: Julia is an 78-year-old [place] male. His presentation is documented in detail in Dr. Heath Anthony' admitting history and physical. In short, he has a history of cardiomyopathy with systolic and diastolic heart failure, aortic stenosis, and mitral regurgitation. He has had progressive weakness over 6 months, which is exacerbated 3 to 4 days before admission. His was unable to get him out of bed. He had a gentle fall to the floor and hence was sent to the emergency room. PHYSICAL EXAMINATION: Examination showed blood pressure of 94/62, heart rate in the 82, respirations 17, oxygen saturation 95% on room air. Cardiovascular System: Heart sounds are normal. No murmurs or gallops. No edema. Chest was clear. INITIAL INVESTIGATIONS: White count 8.9, hemoglobin 13.4, hematocrit 39, platelets 234. Sodium 129, potassium 4.7, BUN 38, creatinine 2.19, lactic acid 1.2, glucose 323. Troponin I 0.04. Chest x-ray: Mild pulmonary vascular congestion. EK, LVH. Brain CT shows evidence of atrophy but no acute findings. INITIAL IMPRESSION: Acute on chronic renal insufficiency due to over diuresis and uncontrolled diabetes, weakness secondary to this, history of congestive cardiac failure with over diuresis, mild elevation of troponin due to his renal insufficiency most likely. He was admitted to telemetry unit and was given IV saline. OTHER INVESTIGATIONS: Troponin I series 0.03, 0.04, and 0.04. BNP was 48 and 60 on two separate occasions. Cortisol was 6.51, TSH 2.96, C-reactive protein was 23.24. Urinalysis: Trace ketones, 2+ glucose. IMAGING: Renal ultrasound: No evidence for atrophy or obstructive uropathy. MRI of the lumbar spine showed moderate spinal stenosis at L4-L5, multilevel degenerative disk disease. Transthoracic echocardiogram on 10/07/18: Mild concentric LVH, global hypokinesia of left ventricle, ejection fraction 45% to 50%, moderate calcific aortic stenosis, gradient 14 mmHg with a calculated valve area of 1 cm2, borderline mitral stenosis, [id number]-lz-ecsinu mitral regurgitation. Stable echocardiogram compared with previous one. CONSULTATIONS: Seen by Analia Olmstead NP as a Cardiology consult on 10/07/18. Report is part of the electronic medical record. Her assessment is NYHA functional class 2-3 stage C heart failure, noted volume contraction and acute on chronic renal insufficiency. At the time of consultation, his renal function has returned to baseline. She suggests reinitiation of metoprolol 12.5 mg a day, holding other medications, in particular DEB inhibitor and diuretics. HOSPITAL COURSE: Initially, he remained hypovolemic. His blood pressure slowly jesse during the hospital stay. He had notably weak legs. Investigations of his spine due to back pain showed that he had moderate spinal stenosis of L4-L5. He also had EMG and nerve conduction studies performed. These demonstrated severe sensory-motor peripheral neuropathy affecting both lower legs and both his hands. EMG did not describe any diabetic amyotrophy. He had some denervation in the left lower leg from his L4-5 spinal stenosis and radiculopathy. On the day of discharge, the patient was feeling much better. He was able to walk with a walker the day before discharge. He has had no cardiac symptoms, in particular no chest pain or palpitations, no orthostatic hypotension for 24 hours, no paroxysmal nocturnal dyspnea or orthopnea. He has no fevers or sweats. His respiratory system, no cough or bringing up any phlegm. Abdomen: He has got a good appetite. His bowels have been fine. His blood sugars have been better controlled. PHYSICAL EXAMINATION ON THE DAY OF DISCHARGE: Temperature 98.2, pulse 81, oxygen saturation on room air 95%, blood pressure 104/60. No cyanosis, anemia, jaundice, clubbing or lymphadenopathy. Cardiovascular System: Pulse is regular, normal character and volume. Heart sounds were normal. He has a 3/6 pansystolic murmur at the apex going to the axilla. He also has a systolic murmur in the aortic area. He has no pedal edema. Respiratory System: Chest expansion full and symmetrical. Percussion not resonant. Breath sounds are vesicular. No crackles or wheezes. Abdomen: No distention, masses, tenderness or organomegaly. Foot Examination: No ulcers. He has calluses over his left second toe but no infection. INVESTIGATIONS: On 10/07/18, his BUN was 14, creatinine down to 1.21, which is at baseline. ASSESSMENT AND PLAN: 1. Volume contraction in a patient with complex cardiac problems. This was due to too much diuretic therapy over a long period of time. His volume is restored; however, his blood pressure remains a little lower than usual of his usual medication. We have set him up so that he can have a new scale for daily weights. He will have visiting nurse service follow using a CHF protocol. They will be contacting Dr. Rajni Inman on a frequent basis. 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 2. Leg weakness. This is secondary to severe diabetic peripheral sensory- motor neuropathy. The acute weakness caused by hypovolemia is now repaired; however, he will require physical therapy in order to help retain as much strength as possible. He is able to manage at home with his ADLs with the help of his . ADDENDUM TO DISCHARGE SUMMARY: ASSESSMENT AND PLAN: 2. 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 He is going to require further physical therapy for this. There is nothing that is surgically or medically correctable for this. Improvement in his glycemic control will prevent it getting worse. 3. Type 2 diabetes mellitus, uncontrolled. He has had longstanding problems with managing his diabetes. He is very insulin resistant and he is also resistant to dietary changes in the hospital regimen of 25 units of 70/30 three times a day at mealtime, controlled diabetes well. At home, he has been using 60 units at each of these times of day and his blood sugars have remained high. 4. Essential hypertension, we will follow this. At present, his blood pressure is low owing to his volume contraction. 5. Dyslipidemia. We will continue current medication. 6. Obesity. Once again, we will try to help him with his weight. His body mass index is 32.4. DISCHARGE MEDICATIONS: 1. Metoprolol 12.5 mg twice daily. 2. Mometasone furoate 100/5 MDI 2 twice daily. 3. Liraglutide 1.8 mg daily by subcutaneous injection. 4. Aspirin 81 mg daily. 5. Simvastatin 40 mg daily. 6. 70/30 insulin 30 units with each meal. FOLLOWUP: He will follow up with Cardiology and with myself next week. We have organized a hospital bed. He will have visiting nurse on a daily basis. [id number]/[facility] #: [id number]/[facility]PS #: [id number] DINORA
--- NOTE | 2018-10-08 12:46 | DS ---
DISCHARGE SUMMARY: ADDENDUM: ASSESSMENT AND PLAN: 2. 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 He is going to require further physical therapy for this. There is nothing that is surgically or medically correctable for this. Improvement in his glycemic control will prevent it getting worse. 3. Type 2 diabetes mellitus, uncontrolled. He has had longstanding problems with managing his diabetes. He is very insulin resistant and he is also resistant to dietary changes in the hospital regimen of 25 units of 70/30 three times a day at mealtime, controlled diabetes well. At home, he has been using 60 units at each of these times of day and his blood sugars have remained high. 4. Essential hypertension, we will follow this. At present, his blood pressure is low owing to his volume contraction. 5. Dyslipidemia. We will continue current medication. 6. Obesity. Once again, we will try to help him with his weight. His body mass index is 32.4. DISCHARGE MEDICATIONS: 1. Metoprolol 12.5 mg twice daily. 2. Mometasone furoate 100/5 MDI 2 twice daily. 3. Liraglutide 1.8 mg daily by subcutaneous injection. 4. Aspirin 81 mg daily. 5. Simvastatin 40 mg daily. 6. 70/30 insulin 30 units with each meal. FOLLOWUP: He will follow up with Cardiology and with myself next week. We have organized a hospital bed. He will have visiting nurse on a daily basis. [id number]/[facility] [place]: [id number] [place]
== END 2018-10-08 11:45 | disposition home health service (06) | DRG 918 ==
LOC: EDBD → ED 03:08 → MEDTELE 09:42
PROVIDERS: ADMIT Student in an Organized Health Care Education/Training Program; ATTEND Internal Medicine
DX: T50.2X1A Poisoning by carbonic-anhydrase inhibitors, benzothiadiazides and other diuretics, accidental (unintentional), initial encounter (principal); I13.0 Hypertensive heart and chronic kidney disease with heart failure and stage 1 through stage 4 chronic kidney disease, or unspecified chronic kidney disease; E87.1 Hypo-osmolality and hyponatremia; I42.9 Cardiomyopathy, unspecified; Q21.1 Atrial septal defect; I50.42 Chronic combined systolic (congestive) and diastolic (congestive) heart failure; E11.22 Type 2 diabetes mellitus with diabetic chronic kidney disease; E78.00 Pure hypercholesterolemia, unspecified; M19.90 Unspecified osteoarthritis, unspecified site; E66.9 Obesity, unspecified; R40.2412 Glasgow coma scale score 13-15, at arrival to emergency department; M54.5 Low back pain; E11.42 Type 2 diabetes mellitus with diabetic polyneuropathy; G89.29 Other chronic pain; R91.1 Solitary pulmonary nodule; R53.1 Weakness; E11.65 Type 2 diabetes mellitus with hyperglycemia; M48.061 Spinal stenosis, lumbar region without neurogenic claudication; E88.81 Metabolic syndrome and other insulin resistance; I95.9 Hypotension, unspecified; I08.0 Rheumatic disorders of both mitral and aortic valves; E86.1 Hypovolemia; R74.8 Abnormal levels of other serum enzymes; R62.7 Adult failure to thrive; W17.89XA Other fall from one level to another, initial encounter; M54.16 Radiculopathy, lumbar region; I87.8 Other specified disorders of veins; E78.5 Hyperlipidemia, unspecified; G47.33 Obstructive sleep apnea (adult) (pediatric); Z98.42 Cataract extraction status, left eye; I25.2 Old myocardial infarction; Z98.41 Cataract extraction status, right eye; Z82.49 Family history of ischemic heart disease and other diseases of the circulatory system; Z68.32 Body mass index [BMI] 32.0-32.9, adult; Z83.3 Family history of diabetes mellitus; Z89.432 Acquired absence of left foot; Y92.9 Unspecified place or not applicable; Z79.82 Long term (current) use of aspirin; Z79.4 Long term (current) use of insulin
CPT/HCPCS: 36415; 70450; 71046; 72148; 76775; 80048; 80053; 81003; 82533; 82570; 82947; 83605; 83735; 83880; 84100; 84300; 84443; 84484; 84540; 85025; 86140; 87641; 93005; 93306; 94640; 95886; 95911; 99285; A9270-GY; G8978-GP-CI; G8978-GP-CM; G8979-GP-CI; G8979-GP-CK; G8987-GO-CL; G8988-GO-CJ; J1644

== ENCOUNTER 2018-11-09 17:54 | Inpatient (IN) | payer MEDICARE ==
--- OUTSIDE RECORDS SUMMARY | 2018-11-09 18:01 | XMS REPORT | Continuity of Care Document ---
:1940 External Reference #:[id number] Author Name Dilcia Castañeda Care Team Providers Name Role Phone Roque Arevalo MD Primary Care Physician Unavailable Payers Date Identification Numbers Payment Provider Subscriber Effective: 2013 Policy Number: [id number] Medicare Blue Ppo Julia Walter Group Number: [id number] [address] [id number] PayID: [id number] [place] [id number] Advance Directives Description No Information Available Problems Date Description Provider Status Onset: 03/04/2016 Aortic valve disorder Rajni Inman M.D. Active Onset: 07/11/2016 Mitral valve disorder Rajni Inman M.D. Active Onset: 02/04/2017 Mixed hyperlipidemia Rajni Inman M.D. Active Onset: 05/06/2017 Chronic diastolic heart failure Rajni Inman M.D. 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 Aspir-Low [...] Tablets 25mg 90tab 1 tabs qd Law, 0000 s MD Roque Ramipril / Hx Capsules 5mg 1/2 tab by Unknown 0000 - mouth every day 2019 Glucosamine / Hx Capsules 500mg 1 by mouth Unknown Sulfate 0000 - bid 2016 Fish Oil / Hx Capsules 1000mg 1 by mouth Unknown Concentrate 0000 - once a day 2017 Vitamin D / Hx Tablets 1000Unit 1 tablet by Unknown 0000 - mouth 06/12/ 2016 Clindamycin HCL 00/ Hx Capsules 1 capsule Unknown 0000 - three times 03/05/ daily to 2015 finish February 2016. Keflex / Hx Capsules 500mg 1 by mouth Unknown 0000 - four times 10/13/ a day for 3 2015 days Metformin HCL / Hx Tablets 500mg 1 by mouth Unknown 0000 - twice a day 2017 Doxycycline / Hx Capsules 100mg one tablet Unknown Hyclate 0000 - twice daily 06/12/ for 4 days 2016 Vitamin C 0000/ Hx Capsules 1 by mouth Unknown 0000 [...] Technetium TC Administered Injection Rajni [id number] Storm, Tetrofosmin, M.D. Per Unit Dose Up To [...] Date Facility Test Result H/L Range Note Laboratory test 10/03/2018 [facility] Point of Care 317 mg/dL High 70-[address] [address] [phone] CBC Auto Diff 10/03/2018 [facility] White Blood 8.9 10^3/uL N 3.5-10.[address] [place] [address] [phone] Red Blood Count 4.27 10^6/uL N 4.18-5.48 Hemoglobin 13.4 g/dL Low 14.0-18.0 Hematocrit 39 % N 36-46 Mean Corpuscular Volume 91 fL N 80-94 Mean Corpuscular Hemoglobin 32 pg High 27-31 Mean Corpuscular HGB Conc 34 g/dL N 31-36 Red Cell Distribution Width 14 % N 10.5-15 Platelet Count 234 10^3/uL N 150-450 Mean Platelet Volume 8.5 fL N 7.4-10.4 Abs Neutrophils 6.4 10^3/uL N 1.5-7.7 Abs Lymphocytes 1.2 10^3/uL N 1.0-4.8 Abs Monocytes 1.2 10^3/uL High 0-0.8 Abs Eosinophils 0.1 10^3/uL N 0-0.6 Abs Basophils 0 10^3/uL N 0-0.2 Abs Nucleated RBC 0 10^3/uL Granulocyte % 71.9 % Lymphocyte % 13.3 % Monocyte % 13.8 % Eosinophil % 0.8 % Basophil % 0.2 % Nucleated Red Blood Cells % 0 Laboratory test 10/03/2018 [facility] Lactic Acid 1.2 mmol/L N 0.5-2.0 [address] [place] [address] [phone] B-Type Natriuretic Peptide BNP 60 pg/mL <=100 Comp Metabolic Panel 10/03/2018 [facility] Sodium 129 mmol/L Low 135-145 [address] [place] [address] [phone] Potassium 4.7 mmol/L N 3.5-5.0 Chloride 93 mmol/L Low 101-111 Co2 Carbon Dioxide 26 mmol/L N 22-32 Anion Gap 10 mmol/L N 2-11 Glucose 323 mg/dL High 70-100 Blood Urea Nitrogen 38 mg/dL High 6-24 Creatinine 2.19 mg/dL High 0.67-1.17 BUN/Creatinine Ratio 17.4 N 8-20 Calcium 9.4 mg/dL N 8.6-10.3 Total Protein 7.5 g/dL N 6.4-8.9 Albumin 3.9 g/dL N 3.2-5.2 Globulin 3.6 g/dL N 2-4 Albumin/Globulin Ratio 1.1 N 1-3 Total Bilirubin 0.30 mg/dL N 0.2-1.0 Alkaline Phosphatase 85 U/L N 34-104 Alt 13 U/L N 7-52 Ast 16 U/L N 13-39 Egfr Non- 29.1 >60 Egfr 35.2 >60 3 Laboratory test 10/03/2018 [facility] Magnesium 2.1 mg/dL N 1.9-2.7 finding [address] [place] [address] [phone] Troponin-I (TnI) 0.04 ng/mL High <0.04 4 TSH (Thyroid Stim Horm) 2.96 mcIU/mL N 0.34-5.60 Urinalysis Profile 10/03/2018 [facility] Urine Color Yellow [address] [place] [address] [phone] Urine Appearance Clear Urine Specific [place] 1.011 N 1.010-1.030 Urine pH 5.0 N 5-9 Urine Urobilinogen Negative Negative Urine Ketones Trace Abnormal Negative Urine Protein Negative Negative Urine Leukocytes Negative Negative Urine Blood Negative Negative Urine Nitrite Negative Negative Urine Bilirubin Negative Negative Urine Glucose 2+(150 mg/dL) Abnormal Negative Lipid Panel - 09/25/2018 [facility] Creatine <pending> J[address] Kinase(CK) [place] [id number] [phone] Laboratory 04/07/2018 [facility] Fructosamine 441 mcmol/L Abnormal 200 - 5 test finding [address] [place] [address] [phone] Order 01/13/2018 [facility] Pulse Oximetry <pending> [address] With/[place] [id number] Oxygen [phone] Lipid Panel - 01/13/2018 [facility] Creatine 48 U/L N 10-[address] Kinase(CK) [place] [address] [phone] Comp 01/13/2018 [facility] Sodium 132 mmol/L Low 135-[address] 5 [place] [address] [phone] Potassium 4.6 mmol/L N 3.5-5.0 Chloride 94 [...] Egfr Non- 45.1 >60 Egfr 54.6 >60 6 Lipid Profile 01/13/2018 [facility] Triglycerides 198 mg/dL 7 (Trig/Chol/HDL) [address] [place] [address] [phone] Cholesterol 144 mg/dL 8 HDL Cholesterol 36.3 mg/dL 9 LDL Cholesterol 68 mg/dL 10 CBC Auto Diff 12/17/2017 [facility] White Blood 9.8 10^3/uL N 3.5-10.[address] [place] [address] [phone] Red Blood Count 4.08 10^6/uL N 4.00-5.40 [...] Cells % 0 Comp Metabolic Panel 12/17/2017 [facility] Sodium 128 mmol/L Low 139-[address] [place] [address] [phone] Potassium 4.6 mmol/L N 3.5-5.0 Chloride 89 [...] Egfr Non- 47.3 >60 Egfr 60.9 >60 11 Inr/Protime 12/17/2017 [facility] Inr 0.98 N 0.77-1.[address] [place] [address] [phone] Laboratory test 11/06/2017 [facility] B-Type 134 High [address] Natriuretic pg/[place] [address] Peptide BNP [phone] Basic Metabolic 11/06/2017 [facility] Sodium 132 Low 139-[address] mmol/[place] [address] [phone] Chloride 94 mmol/L Low 101-111 Co2 Carbon Dioxide 30 mmol/L N 22-32 Glucose 349 mg/dL High 70-100 Blood Urea Nitrogen 26 mg/dL High 6-24 Creatinine 1.60 mg/dL High 0.67-1.17 BUN/Creatinine Ratio 16.3 N 8-20 Calcium 10.0 mg/dL N 8.6-10.3 Egfr Non- 41.9 >60 Egfr 53.9 >60 13 Potassium 5.1 mmol/L High 3.5-5.0 Anion Gap 8 mmol/L N 2-11 Laboratory test 11/06/2017 [facility] Magnesium 2.0 mg/dL N 1.9-2.[address] [place], [place] [phone] [phone] Wound 09/25/2017 [facility] Wound/Misc SEE RESULT 14 Culture/Sensi [address] [place] [address] Stain [phone] Laboratory test 08/30/2017 [facility] B-Type 317 pg/mL High [address] [place] [address] Peptide BNP [phone] Basic Metabolic 08/30/2017 [facility] Sodium 131 mmol/L Low 133-[address] [place] [address] [phone] Potassium 4.8 mmol/L N 3.5-5.0 Chloride 98 mmol/L Low 101-111 Co2 Carbon Dioxide 26 mmol/L N 22-32 Anion Gap 7 mmol/L N 2-11 Glucose 149 mg/dL High 70-100 Blood Urea Nitrogen 35 mg/dL High 6-24 Creatinine 1.94 mg/dL High 0.67-1.17 BUN/Creatinine Ratio 18.0 N 8-20 Calcium 9.4 mg/dL N 8.6-10.3 Egfr Non- 33.5 >60 Egfr 43.1 >60 16 Basic Metabolic Panel 08/26/2017 [facility] Sodium 133 mmol/L N 133-[address] [place] [address] [phone] Chloride 98 mmol/L Low 101-111 Co2 Carbon Dioxide 26 mmol/L N 22-32 Glucose 89 mg/dL N 70-100 Blood Urea Nitrogen 46 mg/dL High 6-24 Creatinine 2.21 mg/dL High 0.67-1.17 BUN/Creatinine Ratio 20.8 High 8-20 Calcium 9.6 mg/dL N 8.6-10.3 Egfr Non- 28.9 >60 Egfr 37.1 >60 17 Potassium 5.2 mmol/L High 3.5-5.0 Anion Gap 9 mmol/L N 2-11 Wound 08/19/2017 [facility] Wound/Misc SEE RESULT 18 Culture/Sensi [address] [place] [address] Stain [phone] Wound 06/12/2017 [facility] Wound/Misc SEE RESULT 19, 20 Culture/Sensi [address] [place] [address] Stain [phone] Wound 05/15/2017 [facility] Wound/Misc SEE RESULT 21 Culture/Sensi [address] [place] [address] Stain [phone] Laboratory test 02/08/2016 [facility] Point of Care 78 mg/dL N 74-1 [address] Glucose 06 [place] [address] [phone] 1 Acls Specialist: [id number] [facility] Severe Sepsis and Septic Shock Management Bundle Measure requires all lactic acids initially measuring >2.0 mmol/L be repeated. 3 Because ethnic data is not always readily [...] 15-29 5 Kidney failure <15 (or dialysis) 4 Result TnIDx:0.04 Called to [id number] at: 03:52:53 by:[id number] Read back by: [id number] Troponin-I testing on Plasma Separator Tubes (PST) has a known false positive rate of 0.20-0.40%. All positive troponins reflex immediate secondary confirmatory testing. 5 Test Performed by: [place] [address] 6 Because ethnic data is not always readily [...] 15-29 5 Kidney failure <15 (or dialysis) 7 Desirable: <150 Borderline High: 150-199 High: 200-499 Very High: >500 8 Desirable: <200 Borderline High: 200-239 High: >239 9 Low: <40 Desirable: 40-60 High: >60 10 Desirable: <100 Near Optimal: 100-129 Borderline High: 130-159 High: 160-189 Very High: >189 11 Because ethnic data is not always readily [...] 15-29 5 Kidney failure <15 (or dialysis) 12 >100 to <200 pg/mL: likely compensated congestive heart failure (CHF) 200 to 400 pg/mL: likely moderate CHF >400 pg/mL: likely moderate to severe CHF 13 Because ethnic data is not always [...] [address]: Jose Sanchez MD Acct: [id number] Unit: [id number] AGE: 77 Location: WOUND Re09/25/17 SEX: M Status: REG REF SPEC: [id number] JOHN: 09/25/[address] [facility] [address]: Jose Sanchez MD REQ: [id number] RECD: 09/25/17 STATUS: ANGEL [facility] DR: Roque Arevalo MD [...] CONTINUED ON NEXT PAGE DEPARTMENT OF PATHOLOGY, [address] [place] [address] Leo Felton M.D. Director [facility] # [id number] Patient: JULIA WALTER [id number] (Continued) Specimen: [id number] Collected: 09/25/17-162 Received: 09/25/17-1648 (Continued) Procedure Result Reported Site Wound/Misc Culture Final (continued) 09/28/17848 1. MRSA (continued) M.I.C. RX --------- ------ Oxacillin >=4 R * Quinupristin/Dalfopristin <=0.25 S Rifampin <=0.5 S Tetracycline >=16 R Trimethoprim/Sulfamethoxazole <=10 S Vancomycin 1 S Imipenem-Deduced R * Ampicillin/Sulbactam-Deduced R Cefazolin-Deduced R * These antibiotics are not available in the [facility] Formulary Contact the Microbiology Department for any additional antibiotic reporting. * ML - Main Lab . END OF REPORT DEPARTMENT OF PATHOLOGY, [address] [place] [address] Leo Felton M.D. Director [facility] # [id number] 15 >100 to <200 pg/mL: likely compensated congestive heart failure (CHF) 200 to 400 pg/mL: likely moderate CHF >400 pg/mL: likely moderate to severe CHF 16 Because ethnic data is not always readily [...] 15-29 5 Kidney failure <15 (or dialysis) 17 Because ethnic data is not always readily [...] 15-29 5 Kidney failure <15 (or dialysis) 18 SEE RESULT BELOW Name: JULIA WALTER : [address]: Jose Sanchez MD Acct: [id number] Unit: [id number] AGE: 77 Location: WOUND Re08/19/17 SEX: M Status: REG REF SPEC: [id number] JOHN: 08/19/[address] [facility] [address]: Jose Sanchez MD REQ: [id number] RECD: 08/19/17 STATUS: AN[facility] DR: Roque Arevalo MD _ SOURCE: FOOT,RIGHT [...] performed at Main Lab DEPARTMENT OF PATHOLOGY, [address] [place] [address] Leo Felton M.D. Director [facility] # [id number] Patient: JULIA WALTER [id number] (Continued) Specimen: [id number] Collected: 08/19/17 Received: 08/19/17-1442 (Continued) Procedure Result Reported Site Wound/Misc Culture Final (continued) 08/21/17- 1439 1. MRSA (continued) M.I.C. RX --------- ------ Cefazolin-Deduced R * These antibiotics are not available in the [facility] Formulary Contact the Microbiology Department for any additional antibiotic reporting. * ML - MAIN LAB ([facility]) . END OF REPORT * ML=Testing performed at Main Lab DEPARTMENT OF PATHOLOGY, [address] [place] [address] Leo Felton M.D. Director [facility] # [id number] 19 SOURCE: LEFT LOWER LEG 20 SEE RESULT BELOW Name: JULIA WALTER : [address]: Jose Sanchez MD Acct: [id number] Unit: [id number] AGE: 76 Location: WOUND Re06/12/17 SEX: M Status: REG REF SPEC: [id number] JOHN: 06/12/17-[address] [facility] [address]: Jose Sanchez MD REQ: [id number] RECD: 06/12/17 STATUS: ANGEL [facility] DR: Roque Arevalo MD _ SOURCE: MISC SOURC SPDESC:LEFT LEG ORDERED: Culture Stain COMMENTS: SOURCE: [...] performed at Main Lab DEPARTMENT OF PATHOLOGY, [address] [place] [address] Leo Felton M.D. Director [facility] # [id number] Patient: JULIA WALTER [id number] (Continued) Specimen: [id number] Collected: 06/12/17 Received: 06/12/17 (Continued) Procedure Result [...] These antibiotics are not available in the [facility] Formulary Contact the Microbiology Department for any additional antibiotic reporting. * ML - MAIN LAB ([facility]) . END OF REPORT * ML=Testing performed at Main Lab DEPARTMENT OF PATHOLOGY, [address] [place] [address] Leo Felton M.D. Director [facility] # [id number] 21 SEE RESULT BELOW Name: TOBI WALTERMANOHAR : [address]: Jose Sanchez MD Acct: [id number] Unit: [id number] AGE: 76 Location: WOUND Re05/15/17 SEX: M Status: REG REF SPEC: [id number] JOHN: 05/15/17-[address]: Jose Sanchez MD REQ: [id number] RECD: 05/15/17 STATUS: AN[facility] DR: Roque [...] performed at Main Lab DEPARTMENT OF PATHOLOGY, [address] [place] [address] Leo Felton M.D. Director [facility] # [id number] Patient: JULIA WALTER [id number] (Continued) Specimen: [id number] Collected: 05/15/17-999 Received: 05/15/17-1246 (Continued) Procedure Result Reported Site Wound/Misc Culture Final (continued) 05/18/17- 1048 1. MRSA (continued) M.I.C. RX --------- ------ [...] These antibiotics are not available in the [facility] Formulary Contact the Microbiology Department for any additional antibiotic reporting. * ML - MAIN LAB ([facility]) . END OF REPORT * ML=Testing performed at Main Lab DEPARTMENT OF PATHOLOGY, [address] [place] [address] Leo Felton M.D. Director [facility] # [id number] 22 Acls Specialist: [id number] MARGY MILLER Procedures Date Code Description Status 09/25/2018 99779 EKG Tracing & Interpretation Completed 06/04/2018 11081 Removal Devitalization Tissue Wound Less Than Equal 20 Completed Square CM 11/06/2017 41869 Removal Devitalization Tissue Wound Less Than Equal 20 Completed Square CM 10/21/2017 62596 Removal Devitalization Tissue Wound Less Than Equal 20 Completed Square CM 10/16/2017 52991 Removal Devitalization Tissue Wound Less Than Equal 20 Completed Square 10/09/2017 75694 Removal Devitalization Tissue Wound Less Than Equal 20 Completed Square 10/02/2017 55826 Removal Devitalization Tissue Wound Less Than Equal 20 Completed Square 09/25/2017 94561 Removal Devitalization Tissue Wound Less Than Equal 20 Completed Square 09/17/2017 28617 Moderate Sedation Services; Same Phys Intl 15 Mins; PT >=5 Completed Years 09/17/2017 83967 Color Flow Doppler/Interp & Reprt Completed 09/17/2017 76422 Pulse Wave/Continuous-Interp.RPT Completed 09/17/2017 71704 Echocardiography, Transesophageal, Real Time W/Image 2D Completed W/W/O M-M 09/16/2017 69501 Removal Devitalization Tissue Wound Less Than Equal 20 Completed [facility] 09/09/2017 65238 Removal Devitalization Tissue Wound Less Than Equal 20 Completed [facility] 09/02/2017 64043 EKG Tracing & Interpretation Completed 09/02/2017 12037 Removal Devitalization Tissue Wound Less Than Equal 20 Completed [facility] 08/26/2017 11681 Removal Devitalization Tissue Wound Less Than Equal 20 Completed [facility] 08/19/2017 88456 Removal Devitalization Tissue Wound Less Than Equal 20 Completed [facility] 08/17/2017 99776 ECHO Transthorasic Realtime 2D W Doppler & Color Flow Hosp Completed 08/16/2017 99979 EKG, Interpretation Only Completed 07/17/2017 60506 Removal Devitalization Tissue Wound Less Than Equal 20 Completed [facility] 06/26/2017 15706 Removal Devitalization Tissue Wound Less Than Equal 20 Completed Square 06/19/2017 03242 Removal Devitalization Tissue Wound Less Than Equal 20 Completed [facility] 06/18/2017 19256 Sleep Study Unattended,HRT Rate,Oxygen Sat,Resp Completed Effort/Airflow 06/12/2017 83513 Removal Devitalization Tissue Wound Less Than Equal 20 Completed [facility] 06/05/2017 16738 Removal Devitalization Tissue Wound Less Than Equal 20 Completed Square 05/22/2017 27007 Removal Devitalization Tissue Wound Less Than Equal 20 Completed Square 05/15/2017 05628 Removal Devitalization Tissue Wound Less Than Equal 20 Completed [facility] 05/08/2017 51159 Removal Devitalization Tissue Wound Less Than Equal 20 Com[address] Square 05/06/2017 49454 EKG Tracing & Interpretation Completed 05/01/2017 96301 Removal Devitalization Tissue Wound Less Than Equal 20 Completed Square 04/24/2017 34054 Removal Devitalization Tissue Wound Less Than Equal 20 Completed Square 04/17/2017 29081 Removal Devitalization Tissue Wound Less Than Equal 20 Completed Square 04/10/2017 90318 Removal Devitalization Tissue Wound Less Than Equal 20 Completed Square 04/01/2017 98596 Treadmill Interp/Report Only Completed 04/01/2017 59611 Stress Test Supervsn W/Out I/R Completed 03/31/2017 29654 ECHO Transthorasic Realtime 2D W Doppler & Color Flow Hosp Completed 02/04/2017 63300 EKG Tracing & Interpretation Completed 10/29/2016 41163 Removal Devitalization Tissue Wound Less Than Equal 20 Completed [facility] 02/21/2016 60807 Stress Test Completed 02/21/2016 38311 Myocardial Perfusion Imaging Tomographic (Spect) Multiple Completed Studies 02/08/2016 62348 Echocardiography, Transesophageal, Real Time W/Image 2D Completed W/W/O M-M 02/08/2016 86457 Pulse Wave/Continuous-Interp.RPT Completed 02/08/2016 12044 Color Flow Doppler/Interp & Reprt Completed 02/06/2016 98214 EKG Tracing & Interpretation Completed 01/09/2016 41856 Removal Devitalization Tissue Wound Less Than Equal 20 Completed [facility] 01/03/2016 96036 Treadmill Interp/Report Only Completed 01/03/2016 77997 Stress Test Supervsn W/Out I/R Completed 01/01/2016 18728 ECHO Transthorasic Realtime 2D W Doppler & Color Flow Hosp Completed 01/01/2016 74416 EKG, Interpretation Only Completed 12/31/2015 21713 EKG, Interpretation Only Completed 12/19/2015 21158 Removal Devitalization Tissue Wound Less Than Equal 20 Completed [facility] 12/12/2015 30292 Removal Devitalized Tissue Wound Greater Than 20 Square Completed 12/12/2015 02546 Removal Devitalization Tissue Wound Less Than Equal 20 Completed [facility] 11/28/2015 24806 Removal Devitalization Tissue Wound Less Than Equal 20 Completed Square CM 01/17/2014 27316 ECHO Transthoracic, Real-Time 2D With Doppler And Color Completed Flow Encounters Type Date Location Provider Dx Diagnosis Office Visit 10/03/2018 [facility] Heath Alber R53.1 Weakness 10:32a [facility] Hospitalists MD Gabrielle N17.9 Acute kidney failure, unspecified E11.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 with hyperglycemia R79.89 Other specified abnormal findings of blood chemistry E87.1 Hypo-osmolality and hyponatremia Office Visit 09/25/2018 2:30p [place] [facility] Laura Kothari I25.10 [facility] Jimi N.PJose disease of [place] coronary artery w/o ang pctrs I50.42 Chronic combined systolic and diastolic hrt fail E11.8 Type 2 diabetes mellitus with unspecified complications G47.33 Obstructive sleep apnea (adult) (pediatric) I34.0 Nonrheumatic mitral (valve) insufficiency Office Visit 06/18/2018 2:30p Wound Care Jose Dunham E11.9 Type 2 diabetes Center [facility] [place] Ghislaine Sanchez. mellitus without complications I89.0 Lymphedema, not elsewhere classified Z86.14 Personal history of methicillin resis staph infection Office Visit 06/11/2018 2:00p Wound Care Jose Dunham L97.412 Non-prs [facility] Center [facility] [place] Ghislaine Sanchez. ulcer of right heel and midft w fat layer expos E11.621 Type 2 diabetes mellitus with foot ulcer I89.0 Lymphedema, not elsewhere classified Z86.14 Personal history of methicillin resis staph infection Office Visit 05/21/2018 2:15p Wound Care Jose Dunham L97.412 Non-prs [facility] Center AT [facility] [place] Ghislaine Sanchez. ulcer of right heel and midft w fat layer expos E11.621 Type 2 diabetes mellitus with foot ulcer I89.0 Lymphedema, not elsewhere classified Z86.14 Personal history of methicillin resis staph infection Office Visit 04/21/2018 12:15p [place] [facility] Rajni Inman I25.10 [facility] Denn[facility] disease [place] coronary artery w/o ang pctrs I50.42 Chronic combined systolic and diastolic hrt fail G47.33 Obstructive sleep apnea (adult) (pediatric) E11.8 Type 2 diabetes mellitus with unspecified complications I34.0 Nonrheumatic mitral (valve) insufficiency I35.0 Nonrheumatic aortic (valve) stenosis R60.0 Localized edema E78.2 Mixed hyperlipidemia Office Visit 01/23/2018 Pulmonology And Luz G47.33 Obstructive sleep 11:00a [facility] Paz RN, apnea (adult) [facility] AMILCAR (pediatric) 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 R09.02 Hypoxemia Office Visit 01/13/2018 9:00a [place] [facility] Rajni Inman, I25.10 [facility] [place] disease of [place] coronary artery w/o ang pctrs I34.0 Nonrheumatic mitral (valve) insufficiency E11.8 Type 2 diabetes mellitus with unspecified complications R09.02 Hypoxemia E78.2 Mixed hyperlipidemia R60.0 Localized edema Office Visit 11/27/2017 3:00p Wound Care Jose Nielson89.612 Pressure ulcer Center AT [facility] [place] Dennys Sanchez of right heel, stage 2 E11.621 Type 2 diabetes mellitus with foot ulcer 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 classd elswhr 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 E11.9 Type 2 diabetes mellitus without complications Office Visit 11/06/2017 1:00p [place] Rajni Inman I34.0 Nonrheumatic mitral Cardiology Germania [place] (valve) [facility] insufficiency I35.0 Nonrheumatic aortic (valve) stenosis I50.42 Chronic combined systolic and diastolic hrt fail R35.1 Nocturia I89.0 Lymphedema, not elsewhere classified Office Visit 10/21/2017 Pulmonology And Luz G47.33 Obstructive sleep 11:00a [facility] Paz RN, apnea (adult) [facility] AMILCAR (pediatric) 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 Office Visit 09/23/2017 10:30a [facility] Rajni Inman I34.0 Nonrheumatic mitral Cardiology Germania Noyola (valve) [facility] insufficiency I35.0 Nonrheumatic aortic (valve) stenosis I50.42 Chronic combined systolic and diastolic hrt fail Office Visit 09/02/2017 10:00a [facility] Simon Inman I35.0 Nonrheumatic Of Syed Noyola aortic (valve) stenosis R35.1 Nocturia I50.32 Chronic diastolic (congestive) heart failure E11.8 Type 2 diabetes mellitus with unspecified complications G47.33 Obstructive sleep apnea (adult) (pediatric) Office Visit 08/22/2017 Pulmonology And Luz G47.33 Obstructive sleep 11:00a Sleep Services Of ESTEFANY Paz, RN, apnea (adult) [facility] ROTATIONAL MOULDING OPERATOR-BC (pediatric) 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 R09.02 Hypoxemia Office Visit 08/19/2017 12:45p Wound Care Jose Nielson89.612 Pressure ulcer [facility] [place] [facility] [place] Sanchez of right heel, stage 2 E11.621 Type 2 diabetes mellitus with foot ulcer Z86.14 Personal history of methicillin resis staph infection I89.0 Lymphedema, not elsewhere classified Office Visit 08/15/2017 [facility] I50.33 Acute on chronic 3:27p Assoc,pc KAVIN Nolasco diastolic Hospitalists (congestive) heart failure 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 I10 Essential (primary) hypertension Office Visit 06/13/2017 11:00a Pulmonology And Sleep Angeline Viera, R09.02 Hypoxemia Services Of [facility] R40.0 Somnolence R35.1 Nocturia E66.01 Morbid (severe) obesity due to excess calories Z68.34 Body mass index (BMI) 34.0-34.9, adult Office Visit 05/20/2017 1:00p [facility] Of MOUNA Payne R09.02 Hypoxemia [facility] I50.32 Chronic diastolic (congestive) heart failure Office Visit 05/06/2017 4:00p [facility] Rajni Inman I50.32 Chronic diastolic Cardiology Of Dennys (congestive) heart [facility] failure I35.0 Nonrheumatic aortic (valve) stenosis E11.621 Type 2 diabetes mellitus with foot ulcer R06.01 Orthopnea R60.0 Localized edema G47.9 Sleep disorder, unspecified Office Visit 04/01/2017 3:32p [facility] Keyon Rodgers R06.02 Shortness of Of Syed Durand M.D. breath I50.9 Heart failure, unspecified Office Visit 03/31/2017 3:34p [facility] Keyon Rodgers I50.9 Heart failure, Of Syed Durand M.D. 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 Office Visit 02/04/2017 3:15p [facility] Rajni Inman I35.0 Nonrheumatic Of Syed Noyola aortic (valve) stenosis Q21.1 Atrial septal defect I87.2 Venous insufficiency (chronic) (peripheral) E78.2 Mixed hyperlipidemia Office Visit 11/26/2016 10:40a Wound Care Jose Dunham S91.201A Unsp open [facility] [place] [facility] [place] Dennys Sanchez wound of right great toe w damage to nail, init E11.621 Type 2 diabetes mellitus with foot ulcer I89.0 Lymphedema, not elsewhere classified Office Visit 11/12/2016 4:48p Wound Javier Dunham S91.201A Unsp open [facility] [place] [facility] [place] Dennys Sanchez wound of right great toe w damage to nail, init E11.621 Type 2 diabetes mellitus with foot ulcer Office Visit 07/11/2016 2:15p [facility] Rajni Inman I35.0 Nonrheumatic Of Syed Noyola aortic (valve) stenosis I34.0 Nonrheumatic mitral (valve) insufficiency 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 Office Visit 03/04/2016 2:45p [facility] Rajni Inman I35.0 Nonrheumatic Of Syed Noyola aortic (valve) stenosis E11.8 Type 2 diabetes mellitus with unspecified complications I89.0 Lymphedema, not elsewhere classified R94.39 Abnormal result of other cardiovascular function study Q21.1 Atrial septal defect Office Visit 02/06/2016 10:00a [facility] Rajni Inman A41.9 Sepsis, Of Syed Noyola unspecified organism R94.39 Abnormal result of other cardiovascular function study Office Visit 02/01/2016 12:35p Wound Javier Dunham I87.313 Chronic venous [facility] [place] [facility] [place] Dennys Sanchez hypertension w ulcer of bilateral low extrm E11.622 Type 2 diabetes mellitus with other skin ulcer 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 L97.211 Non-prs chronic ulcer of right calf limited to brkdwn skin Office Visit 01/03/2016 [facility] Rajni Inman, R94.39 Abnormal result of 10:55a Cardiology Of Dennys other cardiovascular Surfacing Technician function study R79.89 Other specified abnormal findings of blood chemistry I35.0 Nonrheumatic aortic (valve) stenosis Office Visit 12/05/2015 10:59a Wound Care Jose Griggs Chronic venous [facility] AT [facility] [place] [facility] [place] Dennys Sanchez hypertension w ulcer of bilateral low extrm E11.622 Type 2 diabetes mellitus with other skin ulcer 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 L97.211 Non-prs chronic ulcer of right calf limited to brkdwn skin Office Visit 11/28/2015 12:02p Wound Javier Griggs Chronic venous [facility] AT [facility] [place] [facility] [place] Dennys Sanchez hypertension w ulcer of bilateral low extrm E11.622 Type 2 diabetes mellitus with other skin ulcer 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 L97.211 Non-prs chronic ulcer of right calf limited to brkdwn skin Plan of Treatment Future Appointment(s):10/13/2018 1:00 pm - Analia Olmstead NP at [facility]12/11/2018 3:30 pm - Rajni Inman M.D. 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 Continue Lasix and Spironolactone BP is a little low; decrease ramipril to2.5mg dosfjE11.8 Type 2 diabetes mellitus with unspecified [id number] Obstructive sleep apnea (adult) (pediatric)I34.0 Nonrheumatic mitral (valve) insufficiencyNew Orders:Echocardiogram, Ordered:
--- OUTSIDE RECORDS SUMMARY | 2018-11-09 18:01 | XMS REPORT | Continuity of Care Document ---
:1940 External Reference #:[id number] Author Name Jasmin Reed Care Team Providers Name Role Phone Roque Arevalo MD Primary Care Physician Unavailable Payers Date Identification Numbers Payment Provider Subscriber Effective: 2013 Policy Number: [id number] Medicare Blue Ppo Julia Walter Group Number: [id number] [address] [address] PayID: [id number] [place] [address] Advance Directives Description No Information Available Problems Active Problems Provider Date Aortic valve disorder Rajni Inman M.D. Onset: 03/04/2016 Mitral valve disorder Rajni Inman M.D. Onset: 07/11/2016 Mixed hyperlipidemia Rajni Inman M.D. Onset: 02/04/2017 Chronic diastolic heart failure Rajni Inman M.D. Onset: 05/06/2017 Obstructive sleep apnea syndrome Luz Paz DNP, RN, AMILCAR Onset: Hypersomnia Luz Paz DNP RN, JAVON-BANDAR Onset: 08/22/2017 Hypoxemia Luz Paz DNP, RN, AMILCAR Onset: 08/22/2017 Coronary artery atheroma Rajni Inman M.D. Onset: 01/13/2018 Family History Date Family Member(s) Observation Comments General Coronary Artery Disease (CAD) General Diabetes Type II Father Diabetes Type II Mother Diabetes Type II Siblings 5 3 brothers and 2 sisters Social History Type Date Description Comments Sex Unknown Marital Status Lives With Occupation Retired Tobacco Use Start: Unknown Never Smoked Cigarettes Smoking Status Reviewed: 10/27/18 Never Smoked Cigarettes ETOH Use Denies alcohol use Tobacco Use Start: Unknown Patient has never smoked Recreational Drug Use Denies Drug Use Exercise Type/Frequency Does not exercise Allergies, Adverse Reactions, Alerts Description No Known Drug Allergies Medications Active Medications SIG Qnty Indications Ordering Date Provider Ramipril 1 by mouth every 30caps I50.42 Analia Olmstead, 10/27/2018 2.5mg day ASSOCIATE PRODUCT MANAGER Capsules Oxygen Oxygen 2 L nc with 1units Rajni Inman, 05/15/2017 2L [facility] M.DJose Aspir-Low 1 by mouth every Roque Arevalo MD 01/10/[address] Metoprolol Succinate 1/2 tablet by mouth Roque Arevalo MD 01/10/2016 ER every day 25mg Tablets ER 24HR Humulin 70/30 inject 30 units Unknown Kwikpen sub-q in the am, 30 units in the pm, (70-30)100Unit/ML and 30 units at hs Supn or as directed by PCP Victoza inject 1.8 Unknown 18mg/3ML milligrams under Solution Pen-Inject the skin every day Simvastatin take 1 tablet by Unknown 40mg mouth at bedtime Tablets Glucagon Emergency use as directed Unknown 1mg Kit History Medications Ramipril 1 by mouth every 30caps I50.42 Analia Olmstead, 10/27/2018 - 2.5mg Capsules day ASSOCIATE PRODUCT MANAGER 10/27/2018 Ramipril 1 by mouth every 90caps Laura Krause, 09/25/2018 - 2.5mg Capsules day N.P. 10/12/2018 Sulfamethoxazole-Trime 1 tab by mouth Unknown - thoprim twice a day 11/05/2017 800-160 Tablets Spironolactone 1 tabs qd 90tabs Roque Arevalo MD - 25mg 10/12/2018 Tablets Vitamin C 1 by mouth every Unknown - Capsules day 09/01/2017 Doxycycline Hyclate one tablet twice Unknown - 100mg daily for 4 days 06/12/2017 Capsules Furosemide 2 by mouth every Unknown - 40mg Tablets day 10/12/2018 Metformin HCL 1 by mouth twice Unknown - 500mg a day 08/21/2017 Tablets Keflex 1 by mouth four Unknown - 500mg Capsules times a day for 04/18/2016 3 days Clindamycin HCL 1 capsule three Unknown - Capsules times daily to 03/05/2016 finish mid February 2016. Vitamin D 1 tablet by Unknown - 1000Unit mouth everyday 06/12/2017 Tablets Fish Oil Concentrate 1 by mouth once Unknown - a day 09/01/2017 1000mg Capsules Glucosamine Sulfate 1 by mouth bid Unknown - 500mg 06/12/2017 Capsules Ramipril 1/2 tab by mouth Unknown - 5mg Capsules every day 09/25/2018 Medications Administered in Office Medication SIG Qnty Indications Ordering Provider Date Inj, Regadenoson, 0.1 MG Etienne Norris, DO [facility] 02/21/2016 Injection Technetium TC 99M Etienne Norris, DO [facility] 02/21/2016 Tetrofosmin, Per Unit Dose Up To 40 Millicuries Injection Technetium TC 99M Rajni Inman M.D. 02/20/2016 Tetrofosmin, Per Unit Dose Up To 40 Millicuries Injection Immunizations Description No Information Available Vital Signs Date Vital Result Comment 10/27/2018 3:21pm Height 74 inches 6'2" Weight 263.00 lb per pt Heart Rate 90 /min reg BP Systolic Sitting 110 mmHg Lue reg cuff BP Diastolic Sitting 65 mmHg Lue reg cuff BMI (Body Mass Index) 33.8 kg/m2 10/13/2018 1:08pm Height 74 inches 6'2" Weight 261.50 lb with shoes Heart Rate 88 /min BP Systolic Sitting 120 mmHg rue lg cuff BP Diastolic Sitting 64 mmHg rue lg cuff Respiratory Rate 16 /min BMI (Body Mass Index) 33.6 kg/m2 Ejection Fraction 45-50% date 10/07/18 ECHO 09/25/2018 2:22pm Height 74 inches 6'2" Weight [...] Date Facility Test Result H/L Range Note Basic Metabolic 10/20/2018 [facility] Sodium 136 mmol/L N 135- 145 Panel [address] [place] [address] [phone] Potassium 4.9 mmol/L N 3.5-5.0 Chloride 103 mmol/L N 101-111 Co2 Carbon Dioxide 26 mmol/L N 22-32 Anion Gap 7 mmol/L N 2-11 Glucose 134 mg/dL High 70-100 Blood Urea Nitrogen 17 mg/dL N 6-24 Creatinine 1.28 mg/dL High 0.67-1.17 BUN/Creatinine Ratio 13.3 N 8-20 Calcium 9.6 mg/dL N 8.6-10.3 Egfr Non- 54.1 >60 Egfr 65.4 >60 1 Basic Metabolic Panel 10/13/2018 [facility] Sodium 136 mmol/L N 135-145 [address] [place] [address] [phone] Potassium 4.6 mmol/L N 3.5-5.0 Chloride 103 mmol/L N 101-111 Co2 Carbon Dioxide 28 mmol/L N 22-32 Anion Gap 5 mmol/L N 2-11 Glucose 107 mg/dL High 70-100 Blood Urea Nitrogen 14 mg/dL N 6-24 Creatinine 1.34 mg/dL High 0.67-1.17 BUN/Creatinine Ratio 10.4 N 8-20 Calcium 9.7 mg/dL N 8.6-10.3 Egfr Non- 51.3 >60 Egfr 62.1 >60 2 Urinalysis Profile 10/03/2018 [facility] Urine Color Yellow [address] [place] [address] [phone] Urine Appearance Clear Urine Specific [place] 1.011 N 1.010-1.030 Urine pH 5.0 N 5-9 Urine Urobilinogen Negative Negative Urine Ketones Trace Abnormal Negative Urine Protein Negative Negative Urine Leukocytes Negative Negative Urine Blood Negative Negative Urine Nitrite Negative Negative Urine Bilirubin Negative Negative Urine Glucose 2+(150 mg/dL) Abnormal Negative Laboratory test 10/03/2018 [facility] Magnesium 2.1 mg/dL N 1.9-2.7 finding [address] [place] [address] [phone] Troponin-I (TnI) 0.04 ng/mL High <0.04 3 TSH (Thyroid Stim Horm) 2.96 mcIU/mL N 0.34-5.60 Laboratory test 10/03/2018 [facility] Point of 317 mg/dL High 70-100 4 finding 101 [facility] [place] [place] [address] [phone] CBC Auto Diff 10/03/2018 [facility] White Blood 8.9 N 3.5- 10.8 101 [facility] Count 10^3/[place] [address] [phone] Red Blood Count 4.27 10^6/uL N 4.18-5.48 [...] % Nucleated Red Blood Cells % 0 Comp Metabolic Panel 10/03/2018 [facility] Sodium 129 mmol/L Low 135-[address] [place] [address] [phone] Potassium 4.7 mmol/L N 3.5-5.0 Chloride 93 [...] Egfr Non- 29.1 >60 Egfr 35.2 >60 5 Laboratory test 10/03/2018 [facility] Lactic Acid 1.2 mmol/L N 0.5-2.0 [address] [place] [address] [phone] B-Type Natriuretic Peptide BNP 60 pg/mL <=100 Lipid Panel - 09/25/2018 [facility] Creatine <pending> JFM [address] Kinase(CK) [place], [place] [id number] [phone] Laboratory 04/07/2018 [facility] Fructosamine 441 mcmol/L Abnormal 200 - 7 test finding [address] [place], [place] [id number] [phone] Order 01/13/2018 [facility] Pulse Oximetry <pending> [address] [place] With/[place] [address] Oxygen [phone] Lipid Panel - 01/13/2018 [facility] Creatine 48 U/L N 10-[address] Kinase(CK) [place], [place] [address] [phone] Comp 01/13/2018 [facility] Sodium 132 mmol/L Low 135-[address] 5 [place] [address] [phone] Potassium 4.6 mmol/L N 3.5-5.0 Chloride 94 [...] Egfr Non- 45.1 >60 Egfr 54.6 >60 8 Lipid Profile 01/13/2018 [facility] Triglycerides 198 mg/dL 9 (Trig/Chol/HDL) [address] [place] [address] [phone] Cholesterol 144 mg/dL 10 HDL Cholesterol 36.3 mg/dL 11 LDL Cholesterol 68 mg/dL 12 CBC Auto Diff 12/17/2017 [facility] White Blood 9.8 10^3/uL N 3.5-10.[address] [place] [address] [phone] Red Blood Count 4.08 10^6/uL N 4.00-5.40 [...] Cells % 0 Comp Metabolic Panel 12/17/2017 [facility] Sodium 128 mmol/L Low 139-[address] [place] [address] [phone] Potassium 4.6 mmol/L N 3.5-5.0 Chloride 89 [...] Egfr Non- 47.3 >60 Egfr 60.9 >60 13 Inr/Protime 12/17/2017 [facility] Inr 0.98 N 0.77-1.[address] [place] [address] [phone] Laboratory test 11/06/2017 [facility] B-Type 134 High [address] Natriuretic pg/[place] [address] Peptide BNP [phone] Basic Metabolic 11/06/2017 [facility] Sodium 132 Low 139-[address] mmol/L [place], [place] [address] [phone] Chloride 94 mmol/L Low 101-111 Co2 Carbon Dioxide 30 mmol/L N 22-32 Glucose 349 mg/dL High 70-100 Blood Urea Nitrogen 26 mg/dL High 6-24 Creatinine 1.60 mg/dL High 0.67-1.17 BUN/Creatinine Ratio 16.3 N 8-20 Calcium 10.0 mg/dL N 8.6-10.3 Egfr Non- 41.9 >60 Egfr 53.9 >60 15 Potassium 5.1 mmol/L High 3.5-5.0 Anion Gap 8 mmol/L N 2-11 Laboratory test 11/06/2017 [facility] Magnesium 2.0 mg/dL N 1.9-2.[address] [place] [address] [phone] Wound 09/25/2017 [facility] Wound/Misc SEE RESULT 16 Culture/Sensi [address] [place] [address] Stain [phone] Laboratory test 08/30/2017 [facility] B-Type 317 pg/mL High [address] [place] [address] Peptide BNP [phone] Basic Metabolic 08/30/2017 [facility] Sodium 131 mmol/L Low 133-[address] [place], [place] [address] [phone] Potassium 4.8 mmol/L N 3.5-5.0 Chloride 98 mmol/L Low 101-111 Co2 Carbon Dioxide 26 mmol/L N 22-32 Anion Gap 7 mmol/L N 2-11 Glucose 149 mg/dL High 70-100 Blood Urea Nitrogen 35 mg/dL High 6-24 Creatinine 1.94 mg/dL High 0.67-1.17 BUN/Creatinine Ratio 18.0 N 8-20 Calcium 9.4 mg/dL N 8.6-10.3 Egfr Non- 33.5 >60 Egfr 43.1 >60 18 Basic Metabolic Panel 08/26/2017 [facility] Sodium 133 mmol/L N 133-[address] [place] [address] [phone] Chloride 98 mmol/L Low 101-111 Co2 Carbon Dioxide 26 mmol/L N 22-32 Glucose 89 mg/dL N 70-100 Blood Urea Nitrogen 46 mg/dL High 6-24 Creatinine 2.21 mg/dL High 0.67-1.17 BUN/Creatinine Ratio 20.8 High 8-20 Calcium 9.6 mg/dL N 8.6-10.3 Egfr Non- 28.9 >60 Egfr 37.1 >60 19 Potassium 5.2 mmol/L High 3.5-5.0 Anion Gap 9 mmol/L N 2-11 Wound 08/19/2017 [facility] Wound/Misc SEE RESULT 20 Culture/Sensi [address] [place] [address] Stain [phone] Wound 06/12/2017 [facility] Wound/Misc SEE RESULT 21, 22 Culture/Sensi [address] [place] [address] Stain [phone] Wound 05/15/2017 [facility] Wound/Misc SEE RESULT 23 Culture/Sensi [address] [place] [address] Stain [phone] Laboratory test 02/08/2016 [facility] Point of Care 78 mg/dL N 74-1 [address] Glucose 06 [place] [address] [phone] 1 Because ethnic data is not always readily [...] 15-29 5 Kidney failure <15 (or dialysis) 2 Because ethnic data is not always [...] 5 Kidney failure <15 (or dialysis) 3 Result TnIDx:0.04 Called to [id number] at: 03:52:53 by:[id number] Read back by: [id number] Troponin-I testing on Plasma Separator Tubes (PST) has a known false positive rate of 0.20-0.40%. All positive troponins reflex immediate secondary confirmatory testing. 4 Newspaper Distributor Supervisor: [id number] 5 Because ethnic data is not always readily [...] 15-29 5 Kidney failure <15 (or dialysis) 6 [facility] Severe Sepsis and Septic Shock Management Bundle Measure requires all lactic acids initially measuring >2.0 mmol/L be repeated. 7 Test Performed by: [address] [address] 8 Because ethnic data is not always readily [...] 15-29 5 Kidney failure <15 (or dialysis) 9 Desirable: <150 Borderline High: 150-199 High: 200-499 Very High: >500 10 Desirable: <200 Borderline High: 200-239 High: >239 11 Low: <40 Desirable: 40-60 High: >60 12 Desirable: <100 Near Optimal: 100-129 Borderline High: 130-159 High: 160-189 Very High: >189 13 Because ethnic data is not always [...] 5 Kidney failure <15 (or dialysis) 14 >100 to <200 pg/mL: likely compensated congestive heart failure (CHF) 200 to 400 pg/mL: likely moderate CHF >400 pg/mL: likely moderate to severe CHF 15 Because ethnic data is not always readily [...] 15-29 5 Kidney failure <15 (or dialysis) 16 SEE RESULT BELOW Name: JULIA WALTER : [address]: Jose Sanchez MD Acct: [id number] Unit: [id number] AGE: 77 Location: WOUND Re09/25/17 SEX: M Status: REG REF SPEC: [id number] JOHN: 09/25/[address] [facility] [address]: Jose Sanchez MD REQ: [id number] RECD: 09/25/17 STATUS: ANGEL H[place] DR: Roque [...] CONTINUED ON NEXT PAGE DEPARTMENT OF PATHOLOGY, [address], [place], [place] [address] Leo Felton M.D. Director [facility] # [id number] Patient: JULIA WALTER [id number] (Continued) Specimen: [id number] Collected: 09/25/17 Received: 09/25/17 (Continued) Procedure Result Reported Site Wound/Misc Culture Final (continued) 09/28/17- 848 1. MRSA (continued) M.I.C. RX --------- ------ Oxacillin >=4 R * Quinupristin/Dalfopristin <=0.25 S Rifampin <=0.5 S Tetracycline >=16 R Trimethoprim/Sulfamethoxazole <=10 S Vancomycin 1 S Imipenem-Deduced R * Ampicillin/Sulbactam-Deduced R Cefazolin-Deduced R * These antibiotics are not available in the [facility] Formulary Contact the Microbiology Department for any additional antibiotic reporting. * ML - Main Lab . END OF REPORT DEPARTMENT OF PATHOLOGY, [address] [place] [address] Leo Felton M.D. Director [facility] # [id number] 17 >100 to <200 pg/mL: likely compensated congestive heart failure (CHF) 200 to 400 pg/mL: likely moderate CHF >400 pg/mL: likely moderate to severe CHF 18 Because ethnic data is not always readily [...] 15-29 5 Kidney failure <15 (or dialysis) 19 Because ethnic data is not always readily [...] 15-29 5 Kidney failure <15 (or dialysis) 20 SEE RESULT BELOW Name: JULIA WALTER : [address]: Jose Sanchez MD Acct: [id number] Unit: [id number] AGE: 77 Location: WOUND Re08/19/17 SEX: M Status: REG REF SPEC: [id number] JOHN: 08/19/17-[address]: Jose Sanchez MD REQ: [id number] RECD: 08/19/17 STATUS: COMP [facility] DR: Roque Arevalo MD _ SOURCE: FOOT,RIGHT [...] performed at Main Lab DEPARTMENT OF PATHOLOGY, [address] [place] [address] Leo Fetlon M.D. Director [facility] # [id number] Patient: JULIA WALTER [id number] (Continued) Specimen: [id number] Collected: 08/19/17 Received: 08/19/17 (Continued) Procedure Result Reported Site Wound/Misc Culture Final (continued) 08/21/171438 1. MRSA (continued) M.I.C. RX --------- ------ Cefazolin-Deduced R * These antibiotics are not available in the [facility] Formulary Contact the Microbiology Department for any additional antibiotic reporting. * ML - MAIN LAB ([facility]) . END OF REPORT * ML=Testing performed at Main Lab DEPARTMENT OF PATHOLOGY, [address] [place] [address] Leo Felton M.D. Director [facility] # [id number] 21 SOURCE: LEFT LOWER LEG 22 SEE RESULT BELOW Name: TOBI WALTERLexZACH : [address]: Jose Sanchez MD Acct: [id number] Unit: [id number] AGE: 76 Location: WOUND Re06/12/17 SEX: M Status: REG REF SPEC: [id number] JOHN: 06/12/17-[address] [facility] [address]: Jose Sanchez MD REQ: [id number] RECD: 06/12/17 STATUS: ANGEL H[place] DR: Roque [...] performed at Main Lab DEPARTMENT OF PATHOLOGY, [address] [place] [address] Leo Felton M.D. Director [facility] # [id number] Patient: JULIA WALTER [id number] (Continued) Specimen: [id number] Collected: 06/12/17 Received: 06/12/17-1727 (Continued) Procedure Result Reported Site Wound/Misc Culture [...] These antibiotics are not available in the [facility] Formulary Contact the Microbiology Department for any additional antibiotic reporting. * ML - MAIN LAB ([facility]) . END OF REPORT * ML=Testing performed at Main Lab DEPARTMENT OF PATHOLOGY, [address] [place] [address] Loe Felton M.D. Director [facility] # [id number] 23 SEE RESULT BELOW Name: JULIA WALTER : [address]: Jose Sanchez MD Acct: [id number] Unit: [id number] AGE: 76 Location: WOUND Re05/15/17 SEX: M Status: REG REF SPEC: [id number] JOHN: 05/15/17-[address] [place] [address] DR: Jose Sanchez MD REQ: [id number] RECD: 05/15/17 STATUS: ANGEL H[place] DR: Roque [...] performed at Main Lab DEPARTMENT OF PATHOLOGY, [address] [place] [address] Leo Felton M.D. Director [facility] # [id number] Patient: JULIA WALTER [id number] (Continued) Specimen: [id number] Collected: 05/15/17 Received: 05/15/17 (Continued) Procedure Result Reported Site Wound/Misc Culture Final (continued) 05/18/17 613 1. MRSA (continued) M.I.C. RX --------- ------ [...] These antibiotics are not available in the [facility] Formulary Contact the Microbiology Department for any additional antibiotic reporting. * ML - MAIN LAB ([facility]) . END OF REPORT * ML=Testing performed at Main Lab DEPARTMENT OF PATHOLOGY, [address] [place] [address] Leo Felton M.D. Director [facility] # [id number] 24 Newsp[employer] Distributor Supervisor: [id number] MARGY MILLER Procedures Date Code Description Status 10/07/2018 36402 ECHO Transthorasic Realtime 2D W Doppler & Color Flow Hosp Completed 10/05/2018 06791 Nerve Conduction 09-10 Studies Completed 10/05/2018 78461 Needle Electromyography Each Extremity W/Related Completed Paraspinal Areas 09/25/2018 57622 EKG Tracing & Interpretation Completed 06/04/2018 14791 Removal Devitalization Tissue Wound Less Than Equal 20 Completed Square CM 11/06/2017 70741 Removal Devitalization Tissue Wound Less Than Equal 20 Completed Square CM 10/21/2017 89067 Removal Devitalization Tissue Wound Less Than Equal 20 Completed Square CM 10/16/2017 82667 Removal Devitalization Tissue Wound Less Than Equal 20 Completed Square CM 10/09/2017 04136 Removal Devitalization Tissue Wound Less Than Equal 20 Completed Square CM 10/02/2017 87636 Removal Devitalization Tissue Wound Less Than Equal 20 Completed Square 09/25/2017 70235 Removal Devitalization Tissue Wound Less Than Equal 20 Completed Square 09/17/2017 18901 Echocardiography, Transesophageal, Real Time W/Image 2D Completed W/W/O M-M 09/17/2017 16427 Pulse Wave/Continuous-Interp.RPT Completed 09/17/2017 03376 Color Flow Doppler/Interp & Reprt Completed 09/17/2017 52117 Moderate Sedation Services; Same Phys Intl 15 Mins; PT >=5 Completed Years 09/16/2017 89790 Removal Devitalization Tissue Wound Less Than Equal 20 Completed Square 09/09/2017 64660 Removal Devitalization Tissue Wound Less Than Equal 20 Completed Square 09/02/2017 90524 Removal Devitalization Tissue Wound Less Than Equal 20 Completed Square 09/02/2017 55395 EKG Tracing & Interpretation Completed 08/26/2017 72142 Removal Devitalization Tissue Wound Less Than Equal 20 Completed Square 08/19/2017 48788 Removal Devitalization Tissue Wound Less Than Equal 20 Completed Square 08/17/2017 51804 ECHO Transthorasic Realtime 2D W Doppler & Color Flow Hosp Completed 08/16/2017 95195 EKG, Interpretation Only Completed 07/17/2017 56829 Removal Devitalization Tissue Wound Less Than Equal 20 Completed Square 06/26/2017 55440 Removal Devitalization Tissue Wound Less Than Equal 20 Completed Square 06/19/2017 36177 Removal Devitalization Tissue Wound Less Than Equal 20 Completed Square 06/18/2017 43750 Sleep Study Unattended,HRT Rate,Oxygen Sat,Resp Completed Effort/Airflow 06/12/2017 40476 Removal Devitalization Tissue Wound Less Than Equal 20 Com[address] Square 06/05/2017 19347 Removal Devitalization Tissue Wound Less Than Equal 20 Completed Square 05/22/2017 14622 Removal Devitalization Tissue Wound Less Than Equal 20 Completed Square 05/15/2017 45886 Removal Devitalization Tissue Wound Less Than Equal 20 Completed Square 05/08/2017 15071 Removal Devitalization Tissue Wound Less Than Equal 20 Completed Square 05/06/2017 62087 EKG Tracing & Interpretation Completed 05/01/2017 50315 Removal Devitalization Tissue Wound Less Than Equal 20 Completed Square 04/24/2017 00820 Removal Devitalization Tissue Wound Less Than Equal 20 Completed Square CM 04/17/2017 08815 Removal Devitalization Tissue Wound Less Than Equal 20 Completed Square CM 04/10/2017 70449 Removal Devitalization Tissue Wound Less Than Equal 20 Completed Square CM 04/01/2017 99886 Treadmill Interp/Report Only Completed 04/01/2017 68151 Stress Test Supervsn W/Out I/R Completed 03/31/2017 94355 ECHO Transthorasic Realtime 2D W Doppler & Color Flow Hosp Completed 02/04/2017 72502 EKG Tracing & Interpretation Completed 10/29/2016 93500 Removal Devitalization Tissue Wound Less Than Equal 20 Completed Square 02/21/2016 48461 Stress Test Completed 02/21/2016 20034 Myocardial Perfusion Imaging Tomographic (Spect) Multiple Completed Studies 02/08/2016 09501 Echocardiography, Transesophageal, Real Time W/Image 2D Completed W/W/O M-M 02/08/2016 64346 Pulse Wave/Continuous-Interp.RPT Completed 02/08/2016 12154 Color Flow Doppler/Interp & Reprt Completed 02/06/2016 71921 EKG Tracing & Interpretation Completed 01/09/2016 37712 Removal Devitalization Tissue Wound Less Than Equal 20 Completed Square 01/03/2016 32564 Treadmill Interp/Report Only Completed 01/03/2016 30844 Stress Test Supervsn W/Out I/R Completed 01/01/2016 78782 ECHO Transthorasic Realtime 2D W Doppler & Color Flow Hosp Completed 01/01/2016 09080 EKG, Interpretation Only Completed 12/31/2015 82695 EKG, Interpretation Only Completed 12/19/2015 67586 Removal Devitalization Tissue Wound Less Than Equal 20 Completed Square CM 12/12/2015 38469 Removal Devitalized Tissue Wound Greater Than 20 Square CM Completed 12/12/2015 87025 Removal Devitalization Tissue Wound Less Than Equal 20 Completed Square 11/28/2015 77777 Removal Devitalization Tissue Wound Less Than Equal 20 Completed Square 01/17/2014 97706 ECHO Transthoracic, Real-Time 2D With Doppler And Color Completed Flow Encounters Type Date Location Provider Dx Diagnosis Office Visit 10/13/2018 [facility] Analia Olmstead, N17.9 Acute kidney 1:00p Of [facility] ASSOCIATE PRODUCT MANAGER failure, unspecified E11.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 with hyperglycemia 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 unspecified Office Visit 10/03/2018 [facility] Heath Campo R53.1 Weakness 10:32a Assoc,vincent Anthony MD Hospitalists N17.9 Acute kidney failure, unspecified E11.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 with hyperglycemia R79.89 Other specified abnormal findings of blood chemistry E87.1 Hypo-osmolality and hyponatremia Office Visit 09/25/2018 2:30p [facility] Laura Kothari I25.10 Athscl heart Of [employer]person Foster, N.P. disease of unga coronary artery w/o ang pctrs I50.42 Chronic combined systolic and diastolic hrt fail E11.8 Type 2 diabetes mellitus with unspecified complications G47.33 Obstructive sleep apnea (adult) (pediatric) I34.0 Nonrheumatic mitral (valve) insufficiency Office Visit 06/18/2018 2:30p Wound Care Jose Dunham E11.9 Type 2 diabetes Center AT [facility] Ghislaine Sanchez. mellitus without complications I89.0 Lymphedema, not elsewhere classified Z86.14 Personal history of methicillin resis staph infection Office Visit 06/11/2018 2:00p Wound Care Jose Dunham L97.412 Non-prs [facility] AT [facility] Ghislaine Sanchez. ulcer of right heel and midft w fat layer expos E11.621 Type 2 diabetes mellitus with foot ulcer I89.0 Lymphedema, not elsewhere classified Z86.14 Personal history of methicillin resis staph infection Office Visit 05/21/2018 2:15p Wound Care Jose Dunham L97.412 Non-prs [facility] AT [facility] Ghislaine Sanchez. ulcer of right heel and midft w fat layer expos E11.621 Type 2 diabetes mellitus with foot ulcer I89.0 Lymphedema, not elsewhere classified Z86.14 Personal history of methicillin resis staph infection Office Visit 04/21/2018 12:15p [facility] Rajni Inman, I25.10 [facility] Of [facility] 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 I50.42 Chronic combined systolic and diastolic hrt fail G47.33 Obstructive sleep apnea (adult) (pediatric) E11.8 Type 2 diabetes mellitus with unspecified complications I34.0 Nonrheumatic mitral (valve) insufficiency I35.0 Nonrheumatic aortic (valve) stenosis R60.0 Localized edema E78.2 Mixed hyperlipidemia Office Visit 01/23/2018 Pulmonology And Luz G47.33 Obstructive sleep 11:00a Sleep Services Of ESTEFANY Paz RN, apnea (adult) [facility]- (pediatric) 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 R09.02 Hypoxemia Office Visit 01/13/2018 9:00a [facility] Rajni Inman, I25.10 [facility] 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 I34.0 Nonrheumatic mitral (valve) insufficiency E11.8 Type 2 diabetes mellitus with unspecified complications R09.02 Hypoxemia E78.2 Mixed hyperlipidemia R60.0 Localized edema Office Visit 11/27/2017 3:00p Wound Care Jose Nielson89.612 Pressure ulcer Center AT [facility] Dennys Sanchez of right heel, stage 2 E11.621 Type 2 diabetes mellitus with foot ulcer 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 classd elswhr 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 E11.9 Type 2 diabetes mellitus without complications Office Visit 11/06/2017 1:00p [place] Rajni Inman, I34.0 Nonrheumatic mitral Cardiology Germania Noyola (valve) [facility] insufficiency I35.0 Nonrheumatic aortic (valve) stenosis I50.42 Chronic combined systolic and diastolic hrt fail R35.1 Nocturia I89.0 Lymphedema, not elsewhere classified Office Visit 10/21/2017 Pulmonology And Luz G47.33 Obstructive sleep 11:00a [facility] Paz RN, apnea (adult) [facility]- (pediatric) 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 Office Visit 09/23/2017 10:30a [place] Rajni Inman, I34.0 Nonrheumatic mitral Cardiology Of Dennys (valve) Syed insufficiency I35.0 Nonrheumatic aortic (valve) stenosis I50.42 Chronic combined systolic and diastolic hrt fail Office Visit 09/02/2017 10:00a [facility] Rajni Inman, I35.0 Nonrheumatic Of Syed Noyola aortic (valve) stenosis R35.1 Nocturia I50.32 Chronic diastolic (congestive) heart failure E11.8 Type 2 diabetes mellitus with unspecified complications G47.33 Obstructive sleep apnea (adult) (pediatric) Office Visit 08/22/2017 Pulmonology And Luz G47.33 Obstructive sleep 11:00a [facility] Paz, RN, apnea (adult) [facility] [employer] (pediatric) 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 R09.02 Hypoxemia Office Visit 08/19/2017 12:45p Wound Care Jose Nielson89.612 Pressure ulcer Center AT [facility] Dennys Sanchez of right heel, stage 2 E11.621 Type 2 diabetes mellitus with foot ulcer Z86.14 Personal history of methicillin resis staph infection I89.0 Lymphedema, not elsewhere classified Office Visit 08/15/2017 [facility] I50.33 Acute on chronic 3:27p Assoc,pc KAVIN Nolasco diastolic Hospitalists (congestive) heart failure 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 I10 Essential (primary) hypertension Office Visit 06/13/2017 11:00a [facility] Angeline Viera, R09.02 Hypoxemia Services Of [facility] R40.0 Somnolence R35.1 Nocturia E66.01 Morbid (severe) obesity due to excess calories Z68.34 Body mass index (BMI) 34.0-34.9, adult Office Visit 05/20/2017 1:00p [facility] Of MOUNA Payne R09.02 Hypoxemia [facility] I50.32 Chronic diastolic (congestive) heart failure Office Visit 05/06/2017 4:00p [place] Rajni Inman, I50.32 Chronic diastolic Cardiology Of Dennys (congestive) heart [facility] failure I35.0 Nonrheumatic aortic (valve) stenosis E11.621 Type 2 diabetes mellitus with foot ulcer R06.01 Orthopnea R60.0 Localized edema G47.9 Sleep disorder, unspecified Office Visit 04/01/2017 3:32p [facility] Keyon Rodgers R06.02 Shortness of Of Syed Durand M.D. breath I50.9 Heart failure, unspecified Office Visit 03/31/2017 3:34p [facility] Keyon Rodgers I50.9 Heart failure, Of Syed Durand M.D. unspecified Office Visit 03/30/2017 2:46p [facility] I50.33 Acute on chronic Assoc,vincent Robin MD diastolic Hospitalists (congestive) heart failure E11.59 Type 2 diabetes mellitus with oth circulatory complications I35.0 Nonrheumatic aortic (valve) stenosis Z79.4 joint terminal attack controller (current) use of insulin Office Visit 02/04/2017 3:15p [facility] Rajni Inman I35.0 Nonrheumatic Of Syed Noyola aortic (valve) stenosis Q21.1 Atrial septal defect I87.2 Venous insufficiency (chronic) (peripheral) E78.2 Mixed hyperlipidemia Office Visit 11/26/2016 10:40a Wound Care Jose Dunham S91.201A Unsp open Center AT [facility] Dennys Sanchez wound of right great toe w damage to nail, init E11.621 Type 2 diabetes mellitus with foot ulcer I89.0 Lymphedema, not elsewhere classified Office Visit 11/12/2016 4:48p Wound Javier Dunham S91.201A Unsp open Center AT [facility] Dennys Sanchez wound of right great toe w damage to nail, init E11.621 Type 2 diabetes mellitus with foot ulcer Office Visit 07/11/2016 2:15p [facility] Rajni Inman I35.0 Nonrheumatic Of Syed Noyola aortic (valve) stenosis I34.0 Nonrheumatic mitral (valve) insufficiency 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 Office Visit 03/04/2016 2:45p [facility] Rajni Inman I35.0 Nonrheumatic Of Syed GaleanaDJose aortic (valve) stenosis E11.8 Type 2 diabetes mellitus with unspecified complications I89.0 Lymphedema, not elsewhere classified R94.39 Abnormal result of other cardiovascular function study Q21.1 Atrial septal defect Office Visit 02/06/2016 10:00a [facility] Rajni Inman, A41.9 Sepsis, Of [facility] Dionisio.Ana Maria unspecified organism R94.39 Abnormal result of other cardiovascular function study Office Visit 02/01/2016 12:35p Wound Care Jose Griggs Chronic venous Center AT [facility] Dennys Sanchez hypertension w ulcer of bilateral low extrm E11.622 Type 2 diabetes mellitus with other skin ulcer 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 L97.211 Non-prs chronic ulcer of right calf limited to brkdwn skin Office Visit 01/29/2016 1:57p [facility] Jerardo Rodgers L03.116 Cellulitis of For Ramon Merritt M.D. left lower limb Diseases E10.51 Type 1 diabetes w diabetic peripheral angiopath w/o gangrene E10.628 Type 1 diabetes mellitus with other skin complications I89.0 Lymphedema, not elsewhere classified Office Visit 01/25/2016 3:26p Wound Javier Griggs Chronic venous Center AT [facility] Dennys Sanchez hypertension w ulcer of bilateral low extrm E11.622 Type 2 diabetes mellitus with other skin ulcer 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 L97.211 Non-prs chronic ulcer of right calf limited to brkdwn skin Office Visit 01/03/2016 [place] Rajni Inman, R94.39 Abnormal result of 10:55a Cardiology Of Dennys other cardiovascular [facility] function study R79.89 Other specified abnormal findings of blood chemistry I35.0 Nonrheumatic aortic (valve) stenosis Office Visit 12/05/2015 10:59a Wound Javier Griggs Chronic venous Center AT [facility] Dennys Sanchez hypertension w ulcer of bilateral low extrm E11.622 Type 2 diabetes mellitus with other skin ulcer 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 L97.211 Non-prs chronic ulcer of right calf limited to brkdwn skin Office Visit 11/28/2015 12:02p Wound Javier Griggs Chronic venous Center AT [facility] Dennys Sanchez hypertension w ulcer of bilateral low extrm E11.622 Type 2 diabetes mellitus with other skin ulcer 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 L97.211 Non-prs chronic ulcer of right calf limited to brkdwn skin Plan of Treatment Future Appointment(s):11/13/2018 2:30 pm - Nurse Visit IC at [facility]11/13/2018 2:30 pm - Analia Olmstead NP at [facility]2018 3:30 pm - Rajni Inman M.D. 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 withN17.9 Acute kidney failure, zfalyatxbpbI52.42 Chronic combined systolic ( congestive) and diastolic (congesNew Medication:Ramipril 2.5 mg - 1 by mouth every dayRamipril 2.5 mg - 1 by mouth every dayFollow up:f/u with me ( Analia Olmstead [employer]-) in 2 weeks for medication titration.Recommendations:Please start new medication Ramipril 2.5mg, take 1 tablet by mouth daily monitor for low blood pressure, if notice lightheadedness, weakness or low blood pressure please call me or have the visiting nurse call me.I34.0 Nonrheumatic mitral ( valve) insufficiencyNew Orders:Holter Monitor, Ordered: 10/27/18
[2018-11-09] MEDS ORDERED: NS 0.9% 1000 ML** 1,000 ML IV ONE (18:28)
--- NOTE | 2018-11-09 18:55 | ED ---
Complex/Multi-Sys Presentation - HPI Summary HPI Summary: Patient is a 78 y/o M presenting to ED via EMS for N/V, syncopal episode, and unresponsiveness. Patient reports that he experienced some dizziness yesterday. This afternoon, patient did not feel well, reports that the patient was having difficulty getting to bed. The reports that he could not get up and that he was shaking. EMS was called, who helped the patient to bed. EMS subsequently left. Later, the patient experienced some nausea and vomiting, had a syncopal episode and was found to be unresponsive by the patient's at around 1700. EMS was called once more, EMS reported that the patient was diaphoretic, hypotensive, and bradycardic. At present, patient is alert. Chest pain and SOB are denied. EMS report FSBG was 301. PMHx of diabetes, HLD, HTN, [place] , aortic stenosis, diastolic dysfunction, sleep apnea, PSHx of left great toe surgery, cataract surgery, FMHx of diabetes, HTN, cardiac disease, patient has never smoked tobacco, no alcohol or substance usage is reported. On triage, pain is denied, nothing is noted to aggravate/alleviate Sx. Home medications and allergies are reviewed. - History Of Current Complaint Chief Complaint: EDDysrhythmPalp Hx Obtained From: Patient Onset/Duration: Lasting Hours - unresponsiveness onset 1700 today, Resolved - unresponsiveness Timing: Hours - unresponsiveness onset 1700 today Severity Currently: None - pain denied Aggravating Factor(s): nothing Alleviating Factor(s): nothing Associated Signs And Symptoms: Positive: Decreased Responsiveness, Dizziness, Syncope, Nausea, Vomiting. Negative: SOB, Chest Pain - Allergies/Home Medications Allergies/Adverse Reactions: Allergies Allergy/AdvReac Type Severity Reaction Status Date / Time No Known Allergies Allergy Verified 08/15/17 11:25 Home Medications: Home Medications Furosemide TAB* 40 mg PO BID 11/09/18 [History Confirmed 11/09/18] Insulin ISOPH/REG 70/30 (*) [HumuLIN 70/30 (*)] 60 units SUBCUT AC MDD 200 units 11/09/18 [History Confirmed 11/09/18] Metoprolol Succinate XL TAB* [Toprol XL TAB*] 25 mg PO DAILY 11/09/18 [History Confirmed 11/09/18] Ramipril CAP* 5 mg PO DAILY 11/09/18 [History Confirmed 11/09/18] Spironolactone TAB* 25 mg PO DAILY 11/09/18 [History Confirmed 11/09/18] Ventolin HFA Inhaler* BID 11/10/18 [History] PMH/Surg Hx/FS Hx/Imm Hx Endocrine/Hematology History: Reports: Hx Diabetes Denies: Hx Anticoagulant Therapy, Hx Thyroid Disease, Hx Anemia Cardiovascular History: Reports: Hx Hypercholesterolemia, Hx Hypertension, Hx Myocardial Infarction, Other Cardiovascular Problems/Disorders - aortic stenosis , diastolic dysfunction Denies: Hx Angina, Hx Congestive Heart Failure, Hx Coronary Artery Disease, Hx Deep Vein Thrombosis, Hx Pacemaker/ICD, Hx Valvular Heart Disease Respiratory History: Reports: Hx Sleep Apnea Denies: Hx Asthma, Hx Chronic Obstructive Pulmonary Disease (COPD), Hx Lung Cancer, Hx Pneumonia, Hx Pulmonary Embolism GI History: Denies: Hx Gall Bladder Disease, Hx Gastrointestinal Bleed, Hx Jaundice, Hx Ulcer, Hx Urosepsis History: Denies: Hx Kidney Stones, Hx Renal Disease Musculoskeletal History: Reports: Hx Arthritis, Other Musculoskeletal History - LEFT KNEE PAIN R/T ATHRITIS Sensory History: Reports: Hx Cataracts - BILATERAL, Other Sensory Impairments - DECREASED SENSATION IN FEET AND LEGS Denies: Hx Contacts or Glasses, Hx Hearing Aid Opthamlomology History: Reports: Hx Cataracts - BILATERAL, Other Sensory Impairments - DECREASED SENSATION IN FEET AND LEGS Denies: Hx Contacts or Glasses Neurological History: Denies: Hx Dementia, Hx Headaches, Hx Migraine, Hx Seizures, Hx Transient Ischemic Attacks (TIA) Psychiatric History: Denies: Hx Anxiety, Hx Depression, Hx Panic Disorder, Hx Schizophrenia, Hx Bipolar Disorder - Surgical History Surgery Procedure, Year, and Place: 2008 [place] [facility] [place] [facility] Anesthesia Reactions: No Infectious Disease History: No Infectious Disease History: Denies: Hx Clostridium Difficile, Hx Hepatitis, Hx Human Immunodeficiency Virus (HIV), Hx of Known/Suspected MRSA, Hx Shingles, Hx Tuberculosis, Hx Known/ Suspected VRE, Hx Known/Suspected VRSA, History Other Infectious Disease, Traveled Outside the [place] in Last 30 Days - Family History Known Family History: Positive: Cardiac Disease, Hypertension, Diabetes - Social History Alcohol Use: None Hx Substance Use: No Substance Use Type: Reports: None Hx Tobacco Use: No Smoking Status (MU): Never Smoked Tobacco Have You Smoked in the Last Year: No Review of Systems Negative: Chest Pain Negative: Shortness Of Breath Positive: Vomiting, Nausea Neurological: Other - POSITIVE - DIZZINESS, DECREASED RESPONSIVENESS Positive: Syncope All Other Systems Reviewed And Are Negative: Yes Physical Exam - Summary Physical Exam Summary: VITAL SIGNS: Reviewed. GENERAL: Patient is a well-developed and obese male who is lying comfortable in the stretcher. Patient is not in any acute respiratory distress. He is ill appearing HEAD AND FACE: No signs of trauma. No ecchymosis, hematomas or skull depressions. No sinus tenderness. EYES: PERRLA, EOMI x 2, No injected conjunctiva, no nystagmus. EARS: Hearing grossly intact. Ear canals and tympanic membranes are within normal limits. MOUTH: Oropharynx within normal limits. NECK: Supple, trachea is midline, no adenopathy, no JVD, no carotid bruit, no c- spine tenderness, neck with full ROM. CHEST: Symmetric, no tenderness at palpation LUNGS: Clear to auscultation bilaterally. No wheezing or crackles. CVS: Bradycardic, S1 and S2 present, no murmurs or gallops appreciated. ABDOMEN: Soft, non-tender. No signs of distention. No rebound no guarding, and no masses palpated. Bowel sounds are normal. EXTREMITIES: FROM in all major joints, no edema, no cyanosis or clubbing. Amputation of left foot toes. NEURO: Speech is normal and follows commands. He is alert and answers questions appropriately but appear confused. SKIN: Dry and warm; discoloration of BLE secondary to peripheral vascular disease Triage Information Reviewed: Yes Vital Signs On Initial Exam: Initial Vitals Temp Pulse Resp BP Pulse Ox 95.7 F 47 15 71/49 94 11/09/18 18:08 11/09/18 18:08 11/09/18 18:08 11/09/18 18:08 11/09/18 18:08 Vital Signs Reviewed: Yes Diagnostics - Vital Signs Vital Signs Temp Pulse Resp BP Pulse Ox 11/09/18 18:08 95.7 F 47 15 71/49 94 - Laboratory Result Diagrams: 11/10/18 05:50 11/10/18 05:50 Lab Statement: Any lab studies that have been ordered have been reviewed, and results considered in the medical decision making process. - Radiology CXR Radiology Interpretation Completed By: ED Physician Summary of Radiographic Findings: CXR showed cardiomegaly with interstitial congestion/pulmonary edema, pending official report. - CT BRAIN CT CT Interpretation Completed By: Radiologist Summary of CT Findings: IMPRESSION: No acute intracranial findings. Age- related atrophy and chronic white matter. ischemic change. ASPECT score 10 out of 10. THIS REPORT WAS REVIEWED BY DR. ARREGUIN. - EKG 1807 Cardiac Rate: Bradycardia - rate of 47 BPM EKG Rhythm: Sinus Bradycardia Summary of EKG Findings: EKG showed sinus bradycardia with rate of 47 BPM, no ST elevations. Re-Evaluation - Re-Evaluation First Eval Re-Evaluation Time: 21:06 Comment: Patient is agreeable with admission. Complex Multi-Symp Course/Dx Assessment/Plan: This patient is an 78-year-old male who presents to the emergency room via ambulance with chief complaint of having an syncopal episode / unresponsive episode this afternoon. Patient reports that he was in his usual state of health this morning however in the afternoon he didnt feel well. Patient denies any headache, denies any blurred vision, denies any chest pain or shortness of breath. Patient has no other complaints. Past medical history significant for systolic CHF, atrial septal defect, aortic stenosis, diabetes type 2, dyslipidemia, obesity. Initially the patient was 70/40, therefore the patient was placed in a cardiac surgeon, we obtained 2 IV accesses , and the patient was given IV fluids. After the patient was given a liter and a half the blood pressure is 109/63. EKG is a sinus bradycardia with no ST elevations. Blood test results without any significant abnormality except for hematocrit 12.2, hematocrit 37, sodium 132, creatinine 1.81, glucose is 289, lactic acid is 2.3, AST 94 AST is 103 alkaline phosphatase is 117 in the morning is 59. Troponin is 0.06. Chest x-ray impression: Cardiomegaly with positive interstitial congestion / pulmonary edema. At this point the patient continues to be stable. I discussed my physical exam and findings with Dr. Glover from the hospital services who accepted the patient for admission. - Diagnoses Provider Diagnoses: Unresponsive episode, Hypotension - Physician Notifications Discussed Care Of Patient With: Kristan Glover Time Discussed With Above Provider: 21:00 Instructed by Provider To: Other - Patient's case was discussed with Dr. Glover, Dr. Glover accepts for admission. - Critical Care Time Critical Care Time: 75-104 min Discharge - Sign-Out/Discharge Documenting (check all that apply): Patient Departure - admit Patient Received Moderate/Deep Sedation with Procedure: No - Discharge Plan Condition: Good Disposition: ADMITTED TO [facility] - Billing Disposition and Condition Condition: GOOD Disposition: Admitted to [facility] - Attestation Statements Document Initiated by Scribe: Yes Documenting Scribe: POLA CRUZ Provider For Whom Lizetteibe is Documenting (Include Credential): ZAHEER ARREGUIN MD Scribe Attestation: POLA Arreola, scribed for ZAHEER ARREGUIN MD on 11/10/18 at 1101. Scribe Documentation Reviewed: Yes Provider Attestation: The documentation as recorded by the POLA barksdale accurately reflects the service I personally performed and the decisions made by , ZAHEER ARREGUIN MD Status of Scribe Document: Viewed
[2018-11-09 19:44] LABS: ABS Eosinophils 0.1 10^3/ul (0-0.6); ABS Lymphocytes 0.9 10^3/ul (1.0-4.8); ABS Monocytes 0.8 10^3/ul (0-0.8); ABS Neutrophils 4.6 10^3/ul (1.5-7.7); Eosinophil % 1.4 %; Hematocrit 37 % (42-52); Hemoglobin 12.2 g/dL (14.0-18.0); Lymphocyte % 14.2 %; Mean Corpuscular HGB Conc 33 g/dL (31-36); Mean Corpuscular Hemoglobin 31 pg (27-31); Mean Corpuscular Volume 93 fL (80-94); Mean Platelet Volume 8.3 fL (7.4-10.4); Platelet Count 262 10^3/uL (150-450); Red Cell Distribution Width 15 % (10.5-15); White Blood Count 6.4 10^3/uL (3.5-10.8)
[2018-11-09 20:02] LABS: ALT 103 U/L (7-52); AST 94 U/L (13-39); Albumin 3.6 g/dL (3.2-5.2); Albumin/Globulin Ratio 1.1 (1-3); Alkaline Phosphatase 117 U/L (34-104); Anion Gap 7 mmol/L (2-11); BUN/Creatinine Ratio 9.9 (8-20); Blood Urea Nitrogen 18 mg/dL (6-24); CO2 Carbon Dioxide 23 mmol/L (22-32); Calcium 9.1 mg/dL (8.6-10.3); Chloride 102 mmol/L (101-111); Creatine Kinase 66 U/L (10-223); EGFR African American 43.9 (>60); EGFR Non-African American 36.3 (>60); Globulin 3.4 g/dL (2-4); Glucose 289 mg/dL (70-100); Magnesium 2.2 mg/dL (1.9-2.7); Potassium 4.9 mmol/L (3.5-5.0); Sodium 132 mmol/L (135-145)
[2018-11-09 20:05] LABS: Troponin I 0.06 ng/mL (<0.04)
[2018-11-09 20:09] LABS: Alcohol < 10 mg/dL (<10)
[2018-11-09 20:28] LABS: Acetaminophen < 15 mcg/mL
[2018-11-09] MEDS ORDERED: Dextrose 50% Syringe 50 ML* 25 GM/50 ML SYRINGE IV PUSH PRN (21:53)
[2018-11-09] MEDS ORDERED: Cefepime(*) 1 GM in NS 0.9% 50 ML* 50 ML IVPB ONE (22:00)
[2018-11-09] MEDS ORDERED: Insulin ISOPH/REG 70/30 (*) 1 UNITS UNIT SUBCUT SCH (22:00)
[2018-11-09] MEDS ORDERED: Ondansetron INJ* 2 MG/ML VIAL IV PRN (22:05)
[2018-11-09] MEDS ORDERED: Acetaminophen TAB* 325 MG PO PRN (22:05)
[2018-11-09] MEDS ORDERED: Cefepime 1 GM in Dextrose(*) 1 GM/50 ML BAG IV ONE (22:06)
[2018-11-09 22:22] LABS: C Reactive Protein 9.53 mg/L (<8.01)
[2018-11-09] MEDS ORDERED: NS 0.9% 250 ML* 250 ML IV ONE (23:04)
[2018-11-09 23:10] LABS: Troponin I 0.07 ng/mL (<0.04)
--- NOTE | 2018-11-09 23:49 | PN ---
Progress Note - Progress Note Date of Service: 11/09/18 Note: Patient's BPs remain soft despite a total of 3Ls. Will admit to ICU and continue to bolus prn
[2018-11-10 02:34] LABS: Urine Appearance Cloudy; Urine Bacteria Absent (Absent); Urine Bilirubin Negative (Negative); Urine Blood Negative (Negative); Urine Color Yellow; Urine Glucose 2+(150 mg/dL) (Negative); Urine Ketones Negative (Negative); Urine Nitrite Negative (Negative); Urine Protein 2+(100 mg/dL) (Negative); Urine Red Blood Cell Absent (Absent); Urine Specific Gravity 1.017 (1.010-1.030); Urine Squamous Epithelial Cell Present (Absent); Urine Urobilinogen Negative (Negative); Urine White Blood Cell 1+(6-10/hpf) (Absent)
--- NOTE | 2018-11-10 02:38 | HP ---
CC: Roque Arevalo MD; Rajni Inman MD * HISTORY AND PHYSICAL: DATE OF ADMISSION: 11/09/18 TIME OF EVALUATION: 2099 PRIMARY CARE PHYSICIAN: Roque Arevalo MD. MARKET DEVELOPMENT EXECUTIVE: Rajni Inman MD. CHIEF COMPLAINT: Syncope and collapse. HISTORY OF PRESENT ILLNESS: This is an 78-year-old male with a past medical history of CHF, CKD, and bihanfrr-qn-ohftqq MR who presented to the emergency room after having a syncopal episode. The patient and the provide the history together. The patient says he was complaining of dizziness this afternoon. He was going to go and take a shower, but then decided to go lie down. He cannot tell me why he decided not to take a shower, but the states he fell and collapsed at that time. She called 911 then and they helped to get him up and they brought him to the bed. He vomited with them there. He did not want to go to the emergency room, so they left. She was concerned about how he was looking and called 911 again. At this point, when EMS arrived , his blood pressure was 70/40, heart rate in the 40s, and his glucose was 301 per the emergency room physician. In the emergency room, the patient was hypotensive, he was given 2.5 L and referred to the hospitalist service for further evaluation. The patient states he has been dizzy and lightheaded for 1 day. He denies any chest pain or shortness of breath. No abdominal pain. No cough. No chest pain. No changes in his weight. He states he has been a stable 253 pounds. He has not had a bowel movement in 3 days. He did see his primary care physician, Dr. Arevalo, a few days ago for urinary retention issues. The thinks he was diagnosed with an enlarged prostate and UTI and was started on an antibiotic, though not sure which. They also cut back his metoprolol succinate from 50 mg to 25 mg. She is not sure why they did that either. He denies any fevers or chills. He states that his urinary symptoms are better. He is not yet able to provide a urine sample despite getting 2.5 L. No other falls. Otherwise, remaining review of systems is negative. PAST MEDICAL HISTORY: 1. Recent admission last month for weakness and dehydration, thought to be secondary to overuse of diuretics. 2. Congestive heart failure. 3. Diabetes, on insulin. 4. Xitldacl-zy-emdzvv MR. 5. Moderate AF. 6. Obstructive sleep apnea, on CPAP 8. 7. Diabetic neuropathy. 8. L4-L5 spinal stenosis. 9. Obesity. 10. Chronic low back pain. 11. Hyperlipidemia. 12. CKD. 13. 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 MEDICATIONS: 1. The patient has been started on antibiotics. They are not able to tell me what antibiotic it is. 2. Ramipril 5 mg p.o. daily. 3. Victoza 1.8 mg subcu daily. 4. Aspirin 81 mg daily. 5. Simvastatin 40 mg daily. 6. Humulin 70/30, 60 units at bedtime. 7. Metoprolol succinate, this was cut to 12.5 mg daily. 8. Lasix 40 mg daily. 9. Spironolactone 25 mg daily. ALLERGIES: No known drug allergies. FAMILY HISTORY: Reviewed and noncontributory. SOCIAL HISTORY: The patient lives at home with his . 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 He is dependent on his ADLs. His helps takes care of him. He ambulates with a cane and also uses a walker and a wheelchair. No history of smoking, alcohol, or illicit drug use. His is the healthcare proxy. Code status is full code. He has 2 grown children and 5 grandchildren. REVIEW OF SYSTEMS: A 14-point review of systems as mentioned in the HPI; otherwise, negative. PHYSICAL EXAMINATION GENERAL: No acute distress, resting, lying flat, appearing comfortable with his at the bedside. VITAL SIGNS: Temperature 95.7, pulse rate 70, respiratory rate 22, oxygen saturation 97% on room air, blood pressure 109/63. HEENT: Head: Normocephalic. Pupils equal and reactive, anicteric. Oropharynx : Mucous membranes are dry. NECK: Supple. No lymphadenopathy. RESPIRATORY: Diminished breath sounds. No wheeze, rhonchi, or rales. No increased work of breathing. CARDIAC: Regular rate and rhythm, harsh blowing systolic murmur, most prominent at the left sternal base. ABDOMEN: Soft and nontender, morbidly obese. EXTREMITIES: +2 pretibial pitting edema. Distant pulses noted. NEUROLOGICAL: Alert and oriented x3. No gross focal neurologic deficits. DIAGNOSTIC STUDIES/LAB DATA: Laboratory Data: White count 6.4, hemoglobin 12.2, hematocrit 37, platelets 262. Sodium 132, potassium 4.9, chloride 102, bicarb 23, BUN 18, creatinine 1.81, glucose 289, lactic acid 2.3. AST 94, ALT 103, alk phos 117, ammonia 159. Troponin 0.06. TSH 3.7. Alcohol level is negative. Tylenol level is negative. Chest x-ray is suggestive of a mild more prominent vascular congestion than prior chest x-ray. EKG: Shows sinus bradycardia with a rate of [address]: No acute intracranial findings. Age-related atrophy and chronic white matter ischemic change. ASSESSMENT: This is an 78-year-old male with a past medical history of congestive heart failure, diabetes mellitus, rkoinyqp-lb-ogkgig mitral regurgitation who presents to the emergency room with a syncopal episode and found to be hypotensive and bradycardic. 1. Syncope and collapse. Assessment: It is unclear of the etiology at this point. Appears that in the past he has had issues with overdiuresis and being on a beta claudine, which may have contributed to his hypotension and bradycardia. The other concern is that he was recently diagnosed with a urinary tract infection. He was on antibiotic ; it is unclear what antibiotic he is on. His micro from 11/05/18 shows that he is growing klebsiella and acinetobacter. He does not have a white count. Plan: Going to follow up on his urine. I have ordered blood cultures. I am going to start him on cefepime to cover for both organisms. I am going to bladder scan with postvoid residual as I am concerned he may still have urinary retention issues, which may be contributing to his worsening renal failure as well and for now, I am going to hold his Lasix, spironolactone, ramipril, and metoprolol in the setting of his presentation of profound hypotension and bradycardia and would reassess in the morning. We will follow up with Dr. Arevalo to determine what is appropriate to resume and the family was interested in having cardiology weigh in as well. 2. Johxl-na-qeltwrt renal failure. He does have a bump in his creatinine, which could be related to urinary retention. It could be related to the antibiotic he was on. It is unclear at this point. His BUN is not elevated to suggest that it is prerenal or related to decompensated heart failure. Plan: We will renally dose his medications and repeat his labs in the morning. 3. Transaminitis. The patient is with elevated LFTs. He had one episode of vomiting. It could be shock liver from his syncopal episode with profound hypotension. Plan: We will repeat his labs in the morning. 4. Chronic medical problems: Diabetes. We will resume his Humulin 6 units at bedtime and place him on lispro sliding scale as well. 5. Hyperlipidemia. Continue him on atorvastatin. 6. FEN: We will continue him on a diabetic diet. We will hold off on any further fluid resuscitation at this time as his blood pressure is now within normal limits with his history of heart failure. 7. DVT prophylaxis. The patient scores high risk. Place him on heparin subcu t.i.d. 8. Code status: The patient is a full code. PATIENT TIME: Greater than 50 minutes were spent doing this history and physical, more than half the time was in direct patient contact. signout will be given to Dr. Arevalo. [id number]/[facility] #: [id number] [place]
[2018-11-10 03:12] LABS: Urine Benzodiazepine Screen None Detected (None Detect); Urine Opiates Screen None Detected (None Detect)
[2018-11-10] MEDS: Heparin VIAL(*) 5000 UNITS/ML VIAL (FIVE THOUSAND) SUBCUT SCH ×3 (05:40→21:09)
[2018-11-10 06:00] LABS: ABS Eosinophils 0.2 10^3/ul (0-0.6); ABS Lymphocytes 2.2 10^3/ul (1.0-4.8); ABS Monocytes 1.1 10^3/ul (0-0.8); ABS Neutrophils 3.6 10^3/ul (1.5-7.7); Eosinophil % 3.2 %; Hematocrit 35 % (42-52); Hemoglobin 11.7 g/dL (14.0-18.0); Mean Corpuscular HGB Conc 33 g/dL (31-36); Mean Corpuscular Hemoglobin 31 pg (27-31); Mean Corpuscular Volume 92 fL (80-94); Mean Platelet Volume 8.2 fL (7.4-10.4); Platelet Count 264 10^3/uL (150-450); Red Blood Count 3.81 10^6 /uL (4.18-5.48); Red Cell Distribution Width 15 % (10.5-15); White Blood Count 7.1 10^3/uL (3.5-10.8)
[2018-11-10 06:25] LABS: Albumin 3.4 g/dL (3.2-5.2); Albumin/Globulin Ratio 1.1 (1-3); BUN/Creatinine Ratio 9.8 (8-20); Calcium 8.7 mg/dL (8.6-10.3); EGFR African American 49.5 (>60); EGFR Non-African American 40.9 (>60); Globulin 3.2 g/dL (2-4); Magnesium 2.1 mg/dL (1.9-2.7); Potassium 4.1 mmol/L (3.5-5.0); Total Bilirubin 0.3 mg/dL (0.2-1.0); Total Protein 6.6 g/dL (6.4-8.9)
[2018-11-10] MEDS ORDERED: Insulin LISPRO* 1 UNITS UNIT SUBCUT SCH (07:30)
--- NOTE | 2018-11-10 08:51 | PN ---
Subjective - Subjective History: I reviewed his presentation with Anjelica Murray) and Terrell Zamorano. He had 2 episodes of near syncope. The first he fell slowly to the floor requiring an ambulance to put him in bed. According to Terrell he was mumbling and making no sense. He vomited in bed and had another episode of acute mental state change - he was mumbling and not responding. He was seen at my medical office by Veto Quezada NP 11/04/2018 with urinary symptoms - he thought this was due to a UTI and prostatic obstruction. He prescribed bactrim DS and also referred Kolton to urology. This morning he is feeling well and is fully alert/oriented. He has no focal symptoms, aside from weakness. Active Problems: Active Problems Acute hepatitis (Acute) B17.9 Adverse drug reaction (Acute) T50.905A Altered mental state (Acute) R41.82 BPH (benign prostatic hyperplasia) (Acute) N40.0 Hypoglycemia (Acute) E16.2 Near syncope (Acute) UTI (urinary tract infection) (Acute) Weakness of both legs (Acute) R29.898 Aortic stenosis (Chronic) I35.0 Hypercholesteremia (Chronic) E78.0 Left ventricular hypertrophy (Chronic) I51.7 Low back pain (Chronic) M54.5 Mild mitral regurgitation (Chronic) I34.0 Moderate mitral regurgitation by prior echocardiogram (Chronic) I34.0 Obesities, morbid (Chronic) E66.01 Pulmonary nodule less than 6 cm determined by computed tomography of lung ( Chronic) R91.1 Type 2 diabetes mellitus with neurological manifestations, uncontrolled (Chronic ) E11.49, E11.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, uncontrolled, with renal complications (Chronic) E11.29, E11.65 Current Medications: Current Medications Acetaminophen (Tylenol Tab*) 650 mg PO Q4H PRN PRN Reason: FEVER/PAIN Aspirin (Aspirin 81 Mg Chew Tab*) 81 mg PO DAILY MADHURI Atorvastatin Calcium (Lipitor*) 40 mg PO 1700 MADHURI Dextrose (D50w Syringe 50 Ml*) 12.5 gm IV PUSH .FOR FS < 60 - SS PRN PRN Reason: FS < 60 Heparin Sodium (Porcine) (Heparin Vial(*)) 5,000 units SUBCUT Q8HR MADHURI Last Admin: 11/10/18 05:40 Dose: 5,000 units Cefepime HCl (Maxipime 1 Gm In Dextrose Duplex (*)) 1 gm in 50 mls @ 100 mls/ hr IV Q24H MADHURI Insulin Human Isoph/Insulin Regular (Humulin 70/30 (*)) 60 units SUBCUT BEDTIME MADHURI Last Admin: 11/09/18 23:26 Dose: 60 units Insulin Human Lispro (Humalog*) 0 units SUBCUT AC MADHURI; Protocol Ondansetron HCl (Zofran Inj*) 4 mg IV Q4H PRN PRN Reason: NAUSEA/VOMITING - Review of Systems Constitutional Symptoms: Yes: Weakness, Fatigue, No: Fever, Night Sweats Pulmonary: Negative: Sputum Cardiology: Positive: Swelling of Ankles Negative: Chest Pain, Shortness of Breath Gastroenterology: Positive: Nausea, Vomiting Negative: Abdominal Pain, Change in Bowel Habits Genital - Urinary: Positive: Dysuria, Polyuria Home Medications: Home Medications Medication Instructions Recorded Confirmed Type Liraglutide [Victoza 3-Brian] 1.8 mg SUBCUT DAILY 06/16/15 11/09/18 History Aspirin EC TAB* [Ecotrin EC Low 81 mg PO DAILY 02/07/16 11/09/18 History Dose 81 MG*] Simvastatin [Zocor 40 MG (NF)] 40 mg PO QPM 02/07/16 11/09/18 History Furosemide TAB* 40 mg PO BID 11/09/18 11/09/18 History Insulin ISOPH/REG 70/30 (*) 60 units SUBCUT AC MDD 200 units 11/09/18 11/09/18 History [HumuLIN 70/30 (*)] Metoprolol Succinate XL TAB* 25 mg PO DAILY 11/09/18 11/09/18 History [Toprol XL TAB*] Ramipril CAP* 5 mg PO DAILY 11/09/18 11/09/18 History Spironolactone TAB* 25 mg PO DAILY 11/09/18 11/09/18 History Allergies: Allergies Allergy/AdvReac Type Severity Reaction Status Date / Time No Known Allergies Allergy Verified 08/15/17 11:25 Objective - Vital Signs Vital Signs: Vital Signs 11/09/18 11/09/18 11/09/18 18:07 18:08 18:09 Temperature 95.7 F Pulse Rate 48 47 48 Respiratory 15 20 Rate Blood Pressure 71/49 71/49 (mmHg) O2 Sat by Pulse 96 94 94 Oximetry 11/09/18 11/09/18 11/09/18 18:20 18:35 18:39 Temperature Pulse Rate 47 66 78 Respiratory 20 18 19 Rate Blood Pressure 82/37 95/59 87/54 (mmHg) O2 Sat by Pulse 96 95 96 Oximetry 11/09/18 11/09/18 11/09/18 18:57 19:00 19:12 Temperature Pulse Rate 82 85 82 Respiratory 19 17 16 Rate Blood Pressure 77/54 70/42 (mmHg) O2 Sat by Pulse 96 95 95 Oximetry 11/09/18 11/09/18 11/09/18 19:21 19:39 19:42 Temperature Pulse Rate 83 82 Respiratory 16 15 Rate Blood Pressure 92/61 75/57 86/63 (mmHg) O2 Sat by Pulse 96 97 Oximetry 11/09/18 11/09/18 11/09/18 19:57 20:00 20:03 Temperature Pulse Rate Respiratory 16 18 Rate Blood Pressure 100/56 104/60 (mmHg) O2 Sat by Pulse Oximetry 11/09/18 11/09/18 11/09/18 20:27 20:42 20:54 Temperature Pulse Rate Respiratory 14 15 22 Rate Blood Pressure 91/56 92/53 96/63 (mmHg) O2 Sat by Pulse Oximetry 11/09/18 11/09/18 11/09/18 20:57 21:00 22:00 Temperature Pulse Rate Respiratory 19 22 Rate Blood Pressure 109/63 (mmHg) O2 Sat by Pulse Oximetry 11/09/18 11/09/18 11/09/18 22:45 22:59 23:01 Temperature Pulse Rate Respiratory 17 18 Rate Blood Pressure 84/64 96/63 (mmHg) O2 Sat by Pulse Oximetry 11/09/18 11/09/18 11/09/18 23:12 23:28 23:42 Temperature Pulse Rate Respiratory 18 21 24 Rate Blood Pressure 86/57 80/60 101/66 (mmHg) O2 Sat by Pulse Oximetry 11/10/18 11/10/18 11/10/18 00:01 00:02 00:15 Temperature 97.9 F Pulse Rate 83 78 81 Respiratory 18 21 17 Rate Blood Pressure 105/55 80/60 95/62 (mmHg) O2 Sat by Pulse 95 96 95 Oximetry 11/10/18 11/10/18 11/10/18 00:22 00:31 00:46 Temperature 97.2 F Pulse Rate 84 77 73 Respiratory 18 24 22 Rate Blood Pressure 105/55 123/56 97/70 (mmHg) O2 Sat by Pulse 95 94 95 Oximetry 11/10/18 11/10/18 11/10/18 01:00 01:08 01:16 Temperature Pulse Rate 77 Respiratory 19 19 19 Rate Blood Pressure 107/76 (mmHg) O2 Sat by Pulse 95 Oximetry 11/10/18 11/10/18 11/10/18 01:30 01:47 02:00 Temperature Pulse Rate 78 82 Respiratory 20 21 20 Rate Blood Pressure 110/64 93/64 (mmHg) O2 Sat by Pulse 96 96 Oximetry 11/10/18 11/10/18 11/10/18 02:01 02:18 02:31 Temperature Pulse Rate 79 69 74 Respiratory 11 15 Rate Blood Pressure 104/56 100/55 92/45 (mmHg) O2 Sat by Pulse 95 95 95 Oximetry 11/10/18 11/10/18 11/10/18 03:00 03:30 03:54 Temperature 97.4 F Pulse Rate 70 66 Respiratory 14 10 Rate Blood Pressure 101/49 99/61 (mmHg) O2 Sat by Pulse 94 97 Oximetry 11/10/18 11/10/18 11/10/18 04:00 04:30 05:00 Temperature Pulse Rate 67 66 66 Respiratory 13 13 14 Rate Blood Pressure 104/48 102/51 98/52 (mmHg) O2 Sat by Pulse 95 96 96 Oximetry 11/10/18 11/10/18 11/10/18 05:30 05:57 06:00 Temperature Pulse Rate 71 85 Respiratory 15 22 21 Rate Blood Pressure 99/52 117/58 (mmHg) O2 Sat by Pulse 97 96 Oximetry 11/10/18 11/10/18 11/10/18 06:30 07:00 07:01 Temperature Pulse Rate 77 76 77 Respiratory 17 16 17 Rate Blood Pressure 104/52 111/53 (mmHg) O2 Sat by Pulse 95 95 94 Oximetry 11/10/18 08:00 Temperature 97.2 F Pulse Rate Respiratory Rate Blood Pressure (mmHg) O2 Sat by Pulse Oximetry - Intake and Output Intake and Output: Intake & Output 11/07/18 11/08/18 11/09/18 11/10/18 11:59 11:59 11:59 11:59 Intake Total 1761 Output Total 750 Balance 1011 Weight 250 lb 0.553 oz Intake: IV Fluids 1250 Tube Feeding 481 Tube Feeding Flush Amount 30 Output: Urine 750 ADLs: Meal Record Start: 11/09/18 22: 49 Freq: DAILY@0900,1400,1800 Status: Complete Protocol: Created 11/09/18 22:49 System (Rec: 11/09/18 22:49 System [id number]) ADLs: Meal Record Start: 11/10/18 00: 22 Freq: 09,13,18 Status: Active Protocol: Created 11/10/18 00:22 [id number] (Rec: 11/10/18 00:22 [id number]) Intake and Output Start: 11/09/18 18: 14 Freq: Status: Active Protocol: Created 11/09/18 18:14 System (Rec: 11/09/18 18:14 System [id number]) Intake and Output Start: 11/09/18 22: 49 Freq: DAILY@0600,1400,2200 Status: Complete Protocol: Created 11/09/18 22:49 System (Rec: 11/09/18 22:49 System [id number]) Intake and Output Start: 11/10/18 00: 22 Freq: Q1HR Status: Active Protocol: Created 11/10/18 00:22 [id number] (Rec: 11/10/18 00:22 [id number] [id number]) Document 11/10/18 02:00 [id number] (Rec: 11/10/18 02:36 [id number] ICU-C16) Document 11/10/18 05:00 [id number] (Rec: 11/10/18 05:48 [id number]) Document 11/10/18 07:00 [id number] (Rec: 11/10/18 08:04 [id number] [id number]) - Physical Exam General Physical Exam Comment: Warm, well perfused and in no acute distress. General: No Cyanosis, No Anemia, No Jaundice, No Clubbing Lungs and Chest: Yes: Chest Expansion Full, Chest Expansion Symetrica, Percussion Note Resonant, Vessicular Breath Sounds. No: Crackles, Wheezes Heart Rate and Rhythm: Regular Additional Cardiovascular: Yes: Normal Heart Sounds, Heart Murmur, Pedal Edema - trace Abdominal Exam: Yes: Soft, Bowel Sounds Present. No: Distention, Abdominal Tenderness - Extremities Cranial Nerves II-XII Intact: Yes Limbs: Normal Power, Normal Tone, Normal Coordination - Neuro Orientation: A/O x3 Psychiatric: Normal Speech: Normal Results - Results Lab Results: Laboratory Results - last 24 hr 11/09/18 11/09/18 11/09/18 19:34 19:36 19:36 WBC 6.4 RBC 4.00 L Hgb 12.2 L Hct 37 L MCV 93 MCH 31 MCHC 33 RDW 15 Plt Count 262 MPV 8.3 Neut % (Auto) 71.7 Lymph % (Auto) 14.2 [place] % (Auto) 12.4 Eos % (Auto) 1.4 Baso % (Auto) 0.3 Absolute Neuts (auto) 4.6 Absolute Lymphs (auto) 0.9 L Absolute Monos (auto) 0.8 Absolute Eos (auto) 0.1 Absolute Basos (auto) 0.0 Absolute Nucleated RBC 0.0 Nucleated RBC % 0.0 Sodium 132 L Potassium 4.9 Chloride 102 Carbon Dioxide 23 Anion Gap 7 BUN 18 Creatinine 1.81 H Est GFR ( Amer) 43.9 Est GFR (Non-Af Amer) 36.3 BUN/Creatinine Ratio 9.9 Glucose 289 H POC Glucose (mg/dL) Lactic Acid Calcium 9.1 Magnesium 2.2 Total Bilirubin 0.30 AST 94 H ALT 103 H Alkaline Phosphatase 117 H Ammonia 59 H Total Creatine Kinase 66 Troponin I 0.06 H* C-Reactive Protein 9.53 H Total Protein 7.0 Albumin 3.6 Globulin 3.4 Albumin/Globulin Ratio 1.1 TSH 3.70 Urine Color Urine Appearance Urine pH Ur Specific [place] Urine Protein Urine Ketones Urine Blood Urine Nitrate Urine Bilirubin Urine Urobilinogen Ur Leukocyte Esterase Urine WBC (Auto) Urine RBC (Auto) Ur Squamous Epith Cells Urine Bacteria Urine Glucose Urine Ascorbic Acid Urine Opiates Screen Acetaminophen < 15 Ur Barbiturates Screen Ur Phencyclidine Scrn Ur Amphetamines Screen U Benzodiazepines Scrn Urine Cocaine Screen U Cannabinoids Screen Serum Alcohol < 10 11/09/18 11/09/18 11/09/18 19:36 22:41 23:03 WBC RBC Hgb Hct MCV MCH MCHC RDW Plt Count MPV Neut % (Auto) Lymph % (Auto) [place] % (Auto) Eos % (Auto) Baso % (Auto) Absolute Neuts (auto) Absolute Lymphs (auto) Absolute Monos (auto) Absolute Eos (auto) Absolute Basos (auto) Absolute Nucleated RBC Nucleated RBC % Sodium Potassium Chloride Carbon Dioxide Anion Gap BUN Creatinine Est GFR ( Amer) Est GFR (Non-Af Amer) BUN/Creatinine Ratio Glucose POC Glucose (mg/dL) 262 H Lactic Acid 2.3 H* Calcium Magnesium Total Bilirubin AST ALT Alkaline Phosphatase Ammonia Total Creatine Kinase Troponin I 0.07 H* C-Reactive Protein Total Protein Albumin Globulin Albumin/Globulin Ratio TSH Urine Color Urine Appearance Urine pH Ur Specific [place] Urine Protein Urine Ketones Urine Blood Urine Nitrate Urine Bilirubin Urine Urobilinogen Ur Leukocyte Esterase Urine WBC (Auto) Urine RBC (Auto) Ur Squamous Epith Cells Urine Bacteria Urine Glucose Urine Ascorbic Acid Urine Opiates Screen Acetaminophen Ur Barbiturates Screen Ur Phencyclidine Scrn Ur Amphetamines Screen U Benzodiazepines Scrn Urine Cocaine Screen U Cannabinoids Screen Serum Alcohol 11/10/18 11/10/18 11/10/18 02:00 02:00 05:50 WBC 7.1 RBC 3.81 L Hgb 11.7 L Hct 35 L MCV 92 MCH 31 MCHC 33 RDW 15 Plt Count 264 MPV 8.2 Neut % (Auto) 49.9 Lymph % (Auto) 31.0 [place] % (Auto) 15.5 Eos % (Auto) 3.2 Baso % (Auto) 0.4 Absolute Neuts (auto) 3.6 Absolute Lymphs (auto) 2.2 Absolute Monos (auto) 1.1 H Absolute Eos (auto) 0.2 Absolute Basos (auto) 0.0 Absolute Nucleated RBC 0.0 Nucleated RBC % 0.0 Sodium Potassium Chloride Carbon Dioxide Anion Gap BUN Creatinine Est GFR ( Amer) Est GFR (Non-Af Amer) BUN/Creatinine Ratio Glucose POC Glucose (mg/dL) Lactic Acid Calcium Magnesium Total Bilirubin AST ALT Alkaline Phosphatase Ammonia Total Creatine Kinase Troponin I C-Reactive Protein Total Protein Albumin Globulin Albumin/Globulin Ratio TSH Urine Color Yellow Urine Appearance Cloudy Urine pH 6.0 Ur Specific [place] 1.017 Urine Protein 2+(100 mg/dl) A Urine Ketones Negative Urine Blood Negative Urine Nitrate Negative Urine Bilirubin Negative Urine Urobilinogen Negative Ur Leukocyte Esterase Trace A Urine WBC (Auto) 1+(6-10/hpf) A Urine RBC (Auto) Absent Ur Squamous Epith Cells Present A Urine Bacteria Absent Urine Glucose 2+(150 mg/dl) A Urine Ascorbic Acid * A Urine Opiates Screen None detected Acetaminophen Ur Barbiturates Screen None detected Ur Phencyclidine Scrn None detected Ur Amphetamines Screen None detected U Benzodiazepines Scrn None detected Urine Cocaine Screen None detected U Cannabinoids Screen None detected Serum Alcohol 11/10/18 11/10/18 05:50 07:28 WBC RBC Hgb Hct MCV MCH MCHC RDW Plt Count MPV Neut % (Auto) Lymph % (Auto) [place] % (Auto) Eos % (Auto) Baso % (Auto) Absolute Neuts (auto) Absolute Lymphs (auto) Absolute Monos (auto) Absolute Eos (auto) Absolute Basos (auto) Absolute Nucleated RBC Nucleated RBC % Sodium 137 Potassium 4.1 Chloride 109 Carbon Dioxide 23 Anion Gap 5 BUN 16 Creatinine 1.63 H Est GFR ( Amer) 49.5 Est GFR (Non-Af Amer) 40.9 BUN/Creatinine Ratio 9.8 Glucose 59 L POC Glucose (mg/dL) 112 H Lactic Acid Calcium 8.7 Magnesium 2.1 Total Bilirubin 0.30 AST 58 H ALT 76 H Alkaline Phosphatase 106 H Ammonia Total Creatine Kinase Troponin I C-Reactive Protein Total Protein 6.6 Albumin 3.4 Globulin 3.2 Albumin/Globulin Ratio 1.1 TSH Urine Color Urine Appearance Urine pH Ur Specific [place] Urine Protein Urine Ketones Urine Blood Urine Nitrate Urine Bilirubin Urine Urobilinogen Ur Leukocyte Esterase Urine WBC (Auto) Urine RBC (Auto) Ur Squamous Epith Cells Urine Bacteria Urine Glucose Urine Ascorbic Acid Urine Opiates Screen Acetaminophen Ur Barbiturates Screen Ur Phencyclidine Scrn Ur Amphetamines Screen U Benzodiazepines Scrn Urine Cocaine Screen U Cannabinoids Screen Serum Alcohol Radiology Results: Patient Name: ANJELICA ZAMORANO Medical Record#: [id number] Ordering Physician: Carlos Park MD Acct.#: [id number] : 1940 Age: 78 Sex: M Location: EMERGENCY DEPARTMENT Exam Date: 11/09/181827 ADM Status: REG ER Order Information: CT BRAIN WO Accession Number: [id number] CPT: 71484 EXAM: CT Head Without Contrast EXAM DATE/TIME: 11/09/2018 8:16 PM CLINICAL HISTORY: 78 years old, male; Signs and symptoms; Other: AMS TECHNIQUE: Imaging protocol: Axial computed tomography images of the head/brain without contrast. Radiation optimization: All CT scans at this facility use at least one of these dose optimization techniques: automated exposure control; mA and/or kV adjustment per patient size (includes targeted exams where dose is matched to clinical indication); or iterative reconstruction. COMPARISON: BRAIN WO CT BRAIN WO 10/03/2018 3:44 AM FINDINGS: Brain: There is no acute intracranial hemorrhage, extraaxial collection or mass effect. Santos white differentiation is maintained. Periventricular white matter lucency likely represents small vessel ischemic change. Diffuse cortical volume loss, consistent with patient's age. Ventricles: Normal configuration. No hydrocephalus. Bones/joints: No acute fracture. Sinuses: Normal as visualized. No air fluid levels. Mastoid air cells: No mastoid effusion. Soft tissues: Normal. IMPRESSION: No acute intracranial findings. Age-related atrophy and chronic white matter ischemic change. ASPECT score 10 out of 10. To contact [facility] with a general question: [facility] - [phone] For direct physician to physician contact: Physician Hotline - [phone] [facility] [place] ([facility] Facility ID #[id number]) <Electronically signed by Sophia Castle MD in OV> 11/09/182146 Dictated By: Sophia Castle MD Dictated Date/Time: 11/09/182146 EKG Report: sinus rhythm 77 AR 229 QTc 509 QRS axis -1 1st degree AV block. Long QTc. I inspected the ECG directly. Assessment - Problem List Assessment: Patient Problems Acute hepatitis (Acute) Adverse drug reaction (Acute) Altered mental state (Acute) BPH (benign prostatic hyperplasia) (Acute) Hypoglycemia (Acute) Near syncope (Acute) UTI (urinary tract infection) (Acute) Weakness of both legs (Acute) Aortic stenosis (Chronic) Hypercholesteremia (Chronic) Left ventricular hypertrophy (Chronic) Low back pain (Chronic) Mild mitral regurgitation (Chronic) Moderate mitral regurgitation by prior echocardiogram (Chronic) Obesities, morbid (Chronic) Pulmonary nodule less than 6 cm determined by computed tomography of lung ( Chronic) Type 2 diabetes mellitus with neurological manifestations, 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 The first was associated with a slow fall to the ground and he required EMT to bring him to bed, the second with vomiting. He is now back to baseline. He was taking bactrim DS for a UTI. Differential diagnosis: * hypoglycemia * dysrhythmia * vasovagal episode with vomiting * hypotension from excess diuretic/beta blockade * primary neurological event - seizure/TIA * Adverse drug reaction Hypoglycemia (Acute) He has had hypoglycemia in the hospital and Terrell reports his glucose was low when he was bought to the hospital (I can't find this documented). I will cut back his insulin UTI His urine grew Klebsiella oxytoca > 100,000 cfu, Actinetobacter radioresistens 50 - 75,000 cfu. Both are sensitive to bactrim. However, due to likely drug reaction, we will select cefepime Acute hepatitis This is most likely bactrim hepatotoxicity. I will check an US gallbladder to rule out cholecystitis. I think we should just withold the bactrim and watch the trend in his LFTs Type 2 diabetes - I will cut back his basal insulin BPH - I will check a post void bladder scan Secondary diagnoses: Weakness of both legs (Acute) This is due to a combination of his lumbar stenosis and severe diabetic neuropathy Aortic stenosis (Chronic) Hypercholesteremia (Chronic) Left ventricular hypertrophy (Chronic) Low back pain (Chronic) Mild mitral regurgitation (Chronic) Moderate mitral regurgitation by prior echocardiogram (Chronic) Obesities, morbid (Chronic) Pulmonary nodule less than 6 cm determined by computed tomography of lung ( Chronic) Type 2 diabetes mellitus with neurological manifestations, 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 He is stable enough to transfer to a telemetry bed from ICU.
[2018-11-10] MEDS: Aspirin 81 mg CHEW TAB* 81 MG TAB.CHEW PO SCH (09:12)
[2018-11-10] MEDS ORDERED: Dextrose 50% Syringe 50 ML* 25 GM/50 ML SYRINGE IV PUSH PRN (09:18)
[2018-11-10] MEDS ORDERED: Albuterol 2.5 MG/3 ML NEB.SOL* (0.083%) INH ONE (10:36)
[2018-11-10] MEDS: Insulin LISPRO* 1 UNITS UNIT SUBCUT SCH ×4 (15:03→18:29)
[2018-11-10] MEDS ORDERED: Atorvastatin* 40 MG TAB PO SCH (17:00)
[2018-11-10] MEDS ORDERED: Insulin GLARGINE(*) 1 UNITS UNIT SUBCUT SCH (22:00)
[2018-11-10] MEDS ORDERED: Cefepime 1 GM in Dextrose(*) 1 GM/50 ML BAG IV SCH (23:00)
[2018-11-11] MEDS: Heparin VIAL(*) 5000 UNITS/ML VIAL (FIVE THOUSAND) SUBCUT SCH (06:18)
[2018-11-11 06:20] LABS: ABS Eosinophils 0.3 10^3/ul (0-0.6); ABS Lymphocytes 1.7 10^3/ul (1.0-4.8); ABS Monocytes 0.7 10^3/ul (0-0.8); ABS Neutrophils 3.6 10^3/ul (1.5-7.7); Eosinophil % 4.7 %; Hematocrit 37 % (42-52); Hemoglobin 12.4 g/dL (14.0-18.0); Lymphocyte % 26.4 %; Mean Corpuscular HGB Conc 34 g/dL (31-36); Mean Corpuscular Hemoglobin 31 pg (27-31); Mean Corpuscular Volume 92 fL (80-94); Mean Platelet Volume 8.6 fL (7.4-10.4); Platelet Count 248 10^3/uL (150-450); Red Blood Count 3.97 10^6 /uL (4.18-5.48); Red Cell Distribution Width 15 % (10.5-15); White Blood Count 6.4 10^3/uL (3.5-10.8)
[2018-11-11 06:48] LABS: ALT 59 U/L (7-52); AST 36 U/L (13-39); Albumin 3.5 g/dL (3.2-5.2); Albumin/Globulin Ratio 1.1 (1-3); Alkaline Phosphatase 137 U/L (34-104); Anion Gap 6 mmol/L (2-11); BUN/Creatinine Ratio 11.3 (8-20); Blood Urea Nitrogen 17 mg/dL (6-24); C Reactive Protein 6.13 mg/L (<8.01); CO2 Carbon Dioxide 22 mmol/L (22-32); Calcium 8.8 mg/dL (8.6-10.3); Chloride 104 mmol/L (101-111); EGFR African American 54.1 (>60); EGFR Non-African American 44.7 (>60); Globulin 3.3 g/dL (2-4); Glucose 346 mg/dL (70-100); Potassium 4.9 mmol/L (3.5-5.0); Sodium 132 mmol/L (135-145); Total Protein 6.8 g/dL (6.4-8.9)
[2018-11-11 07:58] VITALS: BP 116/62
--- NOTE | 2018-11-11 08:19 | PN ---
Subjective - Subjective Reason for Note: Discharge Note History: Discharge Summary: He is feeling much better, he has no anorexia, nausea or vomiting. He has had no further altered mental state. His telemetry is benign. He feels ready to go home. He has had no fevers or sweats. He is eating again and his FS are high. Active Problems: Active Problems Acute hepatitis (Acute) B17.9 Adverse drug reaction (Acute) T50.905A Altered mental state (Acute) R41.82 BPH (benign prostatic hyperplasia) (Acute) N40.0 Hypoglycemia (Acute) E16.2 Near syncope (Acute) UTI (urinary tract infection) (Acute) Weakness of both legs (Acute) R29.898 Aortic stenosis (Chronic) I35.0 Hypercholesteremia (Chronic) E78.0 Left ventricular hypertrophy (Chronic) I51.7 Low back pain (Chronic) M54.5 Mild mitral regurgitation (Chronic) I34.0 Moderate mitral regurgitation by prior echocardiogram (Chronic) I34.0 Obesities, morbid (Chronic) E66.01 Pulmonary nodule less than 6 cm determined by computed tomography of lung ( Chronic) R91.1 Type 2 diabetes mellitus with neurological manifestations, uncontrolled (Chronic ) E11.49, E11.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, uncontrolled, with renal complications (Chronic) E11.29, E11.65 Current Medications: Current Medications Acetaminophen (Tylenol Tab*) 650 mg PO Q4H PRN PRN Reason: FEVER/PAIN Aspirin (Aspirin 81 Mg Chew Tab*) 81 mg PO DAILY [facility] Last Admin: 11/10/18 09:12 Dose: 81 mg Atorvastatin Calcium (Lipitor*) 40 mg PO 1700 [facility] Last Admin: 11/10/18 18:30 Dose: 40 mg Dextrose (D50w Syringe 50 Ml*) 12.5 gm IV PUSH .FOR FS < 60 - SS PRN PRN Reason: FS < 60 Dextrose (D50w Syringe 50 Ml*) 12.5 gm IV PUSH .FOR FS < 60 - SS PRN PRN Reason: FS < 60 Heparin Sodium (Porcine) (Heparin Vial(*)) 5,000 units SUBCUT Q8HR [facility] Last Admin: 11/11/18 06:18 Dose: 5,000 units Cefepime HCl (Maxipime 1 Gm In Dextrose Duplex (*)) 1 gm in 50 mls @ 100 mls/ hr IV Q24H [facility] Last Admin: 05/07/19 22:28 Dose: 100 mls/hr Insulin Glargine (Lantus(*)) 40 units SUBCUT Q24H [facility] Last Admin: 11/10/18 21:08 Dose: 40 units Insulin Human Lispro (Humalog*) 0 units SUBCUT [facility]; Protocol Last Admin: 11/10/18 18:29 Dose: 9 units Insulin Human Lispro (Humalog*) 1 units SUBCUT [facility]; Protocol Last Admin: 11/10/18 18:29 Dose: 1 units Ondansetron HCl (Zofran Inj*) 4 mg IV Q4H PRN PRN Reason: NAUSEA/VOMITING Home Medications: Home Medications Medication Instructions Recorded Confirmed Type Liraglutide [Victoza 3-Brian] 1.8 mg SUBCUT DAILY 06/16/15 11/09/18 History Aspirin EC TAB* [Ecotrin EC Low 81 mg PO DAILY 02/07/16 11/09/18 History Dose 81 MG*] Simvastatin [Zocor 40 MG (NF)] 40 mg PO QPM 02/07/16 11/09/18 History Furosemide TAB* 40 mg PO BID 11/09/18 11/09/18 History Insulin ISOPH/REG 70/30 (*) 60 units SUBCUT AC [facility] 200 units 11/09/18 11/09/18 History [HumuLIN 70/30 (*)] Metoprolol Succinate XL TAB* 25 mg PO DAILY 11/09/18 11/09/18 History [Toprol XL TAB*] Ramipril CAP* 5 mg PO DAILY 11/09/18 11/09/18 History Spironolactone TAB* 25 mg PO DAILY 11/09/18 11/09/18 History Ventolin HFA Inhaler* BID 11/10/18 History Allergies: Allergies Allergy/AdvReac Type Severity Reaction Status Date / Time No Known Allergies Allergy Verified 08/15/17 11:25 Objective - Vital Signs Vital Signs: Vital Signs 11/10/18 11/10/18 11/10/18 08:30 09:00 09:01 Temperature Pulse Rate 79 82 82 Respiratory 17 15 20 Rate Blood Pressure 103/65 109/76 (mmHg) O2 Sat by Pulse 94 93 93 Oximetry 11/10/18 11/10/18 11/10/18 10:00 12:00 15:58 Temperature 97.9 F 97.1 F Pulse Rate 70 72 66 Respiratory 19 18 14 Rate Blood Pressure 114/61 102/55 114/61 (mmHg) O2 Sat by Pulse 94 99 94 Oximetry 11/10/18 11/10/18 11/10/18 16:06 19:15 19:46 Temperature 97.2 F Pulse Rate 89 83 Respiratory 18 20 Rate Blood Pressure 131/85 112/60 (mmHg) O2 Sat by Pulse 96 Oximetry 11/10/18 11/11/18 11/11/18 23:18 03:40 07:50 Temperature 97.7 F 97.6 F 98.6 F Pulse Rate 86 88 96 Respiratory 18 16 21 Rate Blood Pressure 114/59 116/69 116/62 (mmHg) O2 Sat by Pulse 96 96 97 Oximetry - Intake and Output Intake and Output: Intake & Output 11/08/18 11/09/18 11/10/18 11/11/18 11:59 11:59 11:59 11:59 Intake Total 2000 295 Output Total 1275 300 Balance 726 -5 Weight 250 lb 0.553 oz 283 lb 14.4 oz Intake: IV Fluids 1250 55 ABX - CEFEPIME 55 Oral 240 240 Tube Feeding 481 Tube Feeding Flush Amount 30 Output: Urine 1275 300 Post Void Residual 0 Other: Date of Last Bowel 11/10/18 Movement ADLs: Meal Record Start: 11/09/18 22: 49 Freq: DAILY@0900,1400,1800 Status: Complete Protocol: Created 11/09/18 22:49 System (Rec: 11/09/18 22:49 System [id number]) ADLs: Meal Record Start: 11/10/18 00: 22 Freq: 09,13,18 Status: Complete Protocol: Created 11/10/18 00:22 [id number] (Rec: 11/10/18 00:22 [id number] ICU-C16) Document 11/10/18 09:00 [id number] (Rec: 11/10/18 09:49 [id number] ICU-C10) ADLs: Meal Record Start: 11/10/18 19: 04 Freq: Status: Active Protocol: Document 11/10/18 19:04 [id number] (Rec: 11/10/18 19:04 [id number] TELE-M15) Created 11/10/18 19:04 [id number] (Rec: 11/10/18 19:04 [id number] TELE-M15) Intake and Output Start: 11/09/18 18: 14 Freq: Status: Active Protocol: Created 11/09/18 18:14 System (Rec: 11/09/18 18:14 System [id number]) Document 11/10/18 21:59 [id number] (Rec: 11/10/18 21:59 [id number] TELE-C13) Document 11/11/18 05:27 [id number] (Rec: 11/11/18 05:27 [id number] TELE-C09) Intake and Output Start: 11/09/18 22: 49 Freq: DAILY@0600,1400,2200 Status: Complete Protocol: Created 11/09/18 22:49 System (Rec: 11/09/18 22:49 System [id number]) Intake and Output Start: 11/10/18 00: 22 Freq: Q1HR Status: Complete Protocol: Created 11/10/18 00:22 [id number] (Rec: 11/10/18 00:22 [id number] ICU-C16) Document 11/10/18 02:00 [id number] (Rec: 11/10/18 02:36 [id number] ICU-C16) Document 11/10/18 05:00 [id number] (Rec: 11/10/18 05:48 [id number] ICU-M31) Document 11/10/18 07:00 [id number] (Rec: 11/10/18 08:04 [id number] ICU-C10) Document 11/10/18 08:00 [id number] (Rec: 11/10/18 09:30 [id number] ICU-C10) Document 11/10/18 09:00 [id number] (Rec: 11/10/18 09:50 [id number] ICU-C10) Document 11/10/18 10:00 [id number] (Rec: 11/10/18 10:41 [id number] ICU-C10) - Physical Exam General Physical Exam Comment: He is looking better today General: No Cyanosis, No Anemia, No Jaundice, No Clubbing Lungs and Chest: Yes: Chest Expansion Full, Chest Expansion Symetrica, Percussion Note Resonant, Vessicular Breath Sounds. No: Crackles, Wheezes Heart Rate and Rhythm: Regular Additional Cardiovascular: Yes: Heart Murmur, Pedal Edema - trace Abdominal Exam: Yes: Soft, Bowel Sounds Present. No: Distention, Abdominal Tenderness Results - Results Lab Results: Laboratory Results - last 24 hr 11/10/18 11/10/18 11/10/18 11:43 17:25 20:58 WBC RBC Hgb Hct MCV MCH MCHC RDW Plt Count MPV Neut % (Auto) Lymph % (Auto) [place] % (Auto) Eos % (Auto) Baso % (Auto) Absolute Neuts (auto) Absolute Lymphs (auto) Absolute Monos (auto) Absolute Eos (auto) Absolute Basos (auto) Absolute Nucleated RBC Nucleated RBC % Sodium Potassium Chloride Carbon Dioxide Anion Gap BUN Creatinine Est GFR ( Amer) Est GFR (Non-Af Amer) BUN/Creatinine Ratio Glucose POC Glucose (mg/dL) 266 H 263 H 154 H Calcium Total Bilirubin Direct Bilirubin Indirect Bilirubin AST ALT Alkaline Phosphatase C-Reactive Protein Total Protein Albumin Globulin Albumin/Globulin Ratio 11/11/18 11/11/18 11/11/18 05:47 05:47 07:33 WBC 6.4 RBC 3.97 L Hgb 12.4 L Hct 37 L MCV 92 MCH 31 MCHC 34 RDW 15 Plt Count 248 MPV 8.6 Neut % (Auto) 56.7 Lymph % (Auto) 26.4 [place] % (Auto) 11.6 Eos % (Auto) 4.7 Baso % (Auto) 0.6 Absolute Neuts (auto) 3.6 Absolute Lymphs (auto) 1.7 Absolute Monos (auto) 0.7 Absolute Eos (auto) 0.3 Absolute Basos (auto) 0.0 Absolute Nucleated RBC 0.0 Nucleated RBC % 0.0 Sodium 132 L Potassium 4.9 Chloride 104 Carbon Dioxide 22 Anion Gap 6 BUN 17 Creatinine 1.51 H Est GFR ( Amer) 54.1 Est GFR (Non-Af Amer) 44.7 BUN/Creatinine Ratio 11.3 Glucose 346 H POC Glucose (mg/dL) 353 H Calcium 8.8 Total Bilirubin 0.30 Direct Bilirubin 0.00 L Indirect Bilirubin Urgent Care Physician Assistant AST 36 ALT 59 H Alkaline Phosphatase 137 H C-Reactive Protein 6.13 Total Protein 6.8 Albumin 3.5 Globulin 3.3 Albumin/Globulin Ratio 1.1 Radiology Results: Patient Name: ANJELICA ZAMORANO Medical Record#: [id number] Ordering Physician: Roque Arevalo MD Acct.#: [id number] : 1940 Age: 78 Sex: M Location: [address] [place] [address] - MEDICAL/TELEMETRY Exam Date: 11/10/18913 ADM Status: ADM IN Order Information: US GALL BLADDER Accession Number: [id number] CPT: 97111 HISTORY: acute hepatitis ? cholecystitis COMPARISONS: October 25, 2008 TECHNIQUE: Multiple transverse and longitudinal ultrasound images were obtained of the right upper quadrant of the abdomen using grayscale, color Doppler, and spectral Doppler imaging. FINDINGS: LIVER: The liver is mildly echogenic and coarse in echotexture, with decreased acoustic transmission. The liver is otherwise normal in shape and contour. There is normal hepatopedal flow of the portal vein on Doppler imaging. The liver measures 16.2 cm in length. BILIARY TREE: There is no intrahepatic or extrahepatic biliary dilatation. The common hepatic duct measures 2.6 mm GALLBLADDER: The gallbladder is well-visualized. There is no cholelithiasis, gallbladder wall thickening, pericholecystic fluid, or sonographic [place] sign. PANCREAS: The head of the pancreas is unremarkable. The tail of the pancreas is not well visualized secondary to overlying bowel gas. RIGHT KIDNEY: There is a 1.8 x 1.6 x 1.8 cm simple cyst of the midpole of the right kidney. There is no hydronephrosis or nephrolithiasis. The right kidney measures 10.1 cm x 4.2 cm x 4.2 cm. AORTA AND IVC: The aorta and IVC are unremarkable. Normal venous waveforms are identifiable on spectral Doppler imaging within the IVC. FLUID: There is a right pleural effusion. OTHER FINDINGS: None. IMPRESSION: 1. RIGHT PLEURAL EFFUSION. 2. MILDLY ECHOGENIC LIVER SUGGESTIVE OF FATTY INFILTRATION. 3. NO SONOGRAPHIC FEATURES OF ACUTE CHOLECYSTITIS. <Electronically signed by Niles Iraheta MD in [place]> 11/10/18 1447 Dictated By: Niles Iraheta MD Dictated Date/Time: 11/10/18 1447 Transcribed Date/Time: 11/10/18 1445 Copy to: This report is only to be considered final once signed by the Provider(s) as displayed in the "<Electronically Signed by >" field (s). Absence of a signature indicates the report is in a draft status and still needs to be finalized. In the event this document was created by someone other than the signing Provider, the individual initiating the document will be listed in the "Entered by:" or "Dictated by:" dimas. 1 of 2 Assessment - Problem List Assessment: Patient Problems Acute hepatitis (Acute) Adverse drug reaction (Acute) Altered mental state (Acute) BPH (benign prostatic hyperplasia) (Acute) Hypoglycemia (Acute) Near syncope (Acute) UTI (urinary tract infection) (Acute) Weakness of both legs (Acute) Aortic stenosis (Chronic) Hypercholesteremia (Chronic) Left ventricular hypertrophy (Chronic) Low back pain (Chronic) Mild mitral regurgitation (Chronic) Moderate mitral regurgitation by prior echocardiogram (Chronic) Obesities, morbid (Chronic) Pulmonary nodule less than 6 cm determined by computed tomography of lung ( Chronic) Type 2 diabetes mellitus with neurological manifestations, 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 He developed hepatitis and this is now mostly recovered. He is eating again (perhaps too much as his FS are high). His gallbladder ultrasound rules out cholecystitis. He feels ready for discharge BPH (benign prostatic hyperplasia) (Acute) UTI (urinary tract infection) (Acute ) We will manage this as an outpatient Hypoglycemia (Acute) no further problems secondary diagnoses: Weakness of both legs (Acute) Aortic stenosis (Chronic) Hypercholesteremia (Chronic) Left ventricular hypertrophy (Chronic) Low back pain (Chronic) Mild mitral regurgitation (Chronic) Moderate mitral regurgitation by prior echocardiogram (Chronic) Obesities, morbid (Chronic) Pulmonary nodule less than 6 cm determined by computed tomography of lung ( Chronic) Type 2 diabetes mellitus with neurological manifestations, 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 He is ready for discharge. I discussed how to prevent bed sores. I also suggested restarting the 70/30 insulin at 25% lower dose and increasing as required.
[2018-11-11] MEDS: Insulin LISPRO* 1 UNITS UNIT SUBCUT SCH ×2 (09:11)
[2018-11-11] MEDS: Aspirin 81 mg CHEW TAB* 81 MG TAB.CHEW PO SCH (09:12)
--- NOTE | 2018-11-11 10:40 | DS ---
DISCHARGE SUMMARY: DATE OF ADMISSION: 11/09/18 DATE OF DISCHARGE: 11/11/18 DISCHARGE DIAGNOSES: 1. Adverse drug reaction to Bactrim/sulfamethoxazole-trimethoprim. 2. Acute hepatitis. 3. Nausea. 4. Vomiting. 5. Syncope. 6. Altered mental status. 7. Hypoglycemia. COMORBIDITIES: Type 2 diabetes with marked insulin resistance and complications of diabetes, acute u rinary tract infection, benign prostatic hyperplasia. SECONDARY DIAGNOSES: 1. Weakness of his legs secondary to lumbar spinal stenosis. 2. Severe diabetic neuropathy. 3. Aortic stenosis. 4. Mitral regurgitation, moderate. 5. Hypercholesterolemia. 6. Congestive cardiac failure with systolic and diastolic dysfunction, chronic. 7. Morbid obesity. HISTORY: Julia Zamorano is an 78-year-old [place] male. His presentation is documented in Dr. Kristan Glover's admitting history and physical. He had urinary tract infection, which in my office t reated with Bactrim. He developed increased weakness, anorexia, and had 2 episodes of near syncope, the second one of which happened when he was in bed and vomited. He also had some hypoglycemia. PHYSICAL EXAMINATION: In the emergency room, temperature 95.7, pulse rate 70, respirations 20, oxyge n saturation 97% on room air, blood pressure 109/63. He had some diminished breath sounds. Cardiova scular System: Harsh blowing systolic murmur at left sternal base. Abdomen was nontender, obese. INITIAL INVESTIGATIONS: White count 6.4, hemoglobin 12.2, hematocrit 37, platelets 262. His AST was 94, ALT 103, alkaline phosphatase 117, ammonia was 159. Troponin I 0.06. Chest x-ray showed mild prominent vascular congestion. EKG: Sinus bradycardia. INITIAL IMPRESSION: 1. Unclear syncope and collapse. 2. Acute on chronic renal failure. 3. Transaminitis. He was managed with overnight first night in the ICU. In the morning, he was stable and was feeling improved. He returned to baseline in his mental state. INVESTIGATIONS DURING HIS HOSPITAL STAY: His troponin I series stayed at 0.07. His liver function se zeferino during his hospitalization normalized aside from his alkaline phosphatase, which was still trend ing up at 137 on the day of discharge. IMAGING: Gallbladder ultrasound was benign. HOSPITAL COURSE: He had return of his appetite. His blood sugar started to go up in the high range for the last 24 hours in the hospital because we had reduced his insulin levels. On the day of disch ralph, he is feeling back to normal. He has a strong appetite. He has no nausea or vomiting. No pro blems with his bowels. He has no urinary symptoms. PHYSICAL EXAMINATION ON THE DAY OF DISCHARGE: Temperature 98.6, heart rate 96, respirations 21, oxyg en saturation 97%, blood pressure 116/62. He is warm and well perfused. Cardiovascular System: Pul se is regular, normal character and volume. Heart sounds were normal. No added sounds, but he does h ave a harsh systolic murmur. He has trace of edema. Respiratory System: Chest is clear. Abdomen: Soft, nontender. Bowel sounds were present. He is alert and oriented. Cranial nerves II through XI I intact. Arms and legs at baseline strength. INVESTIGATIONS ON THE DAY OF DISCHARGE: BUN was 17, creatinine 1.51, blood sugar 346, AST 36, ALT 59 , alkaline phosphatase 137. His C-reactive protein was 6.13. ASSESSMENT AND PLAN: 1. Acute hepatitis secondary to treatment with Bactrim. This is the underlying cause of his present ation. Withdrawal of the Bactrim has resulted in improvement in his symptoms. His liver function te sts are improving. He is back to baseline in terms of his appetite. I cannot fully explain his trop onin I levels. This may relate to his chronic CHF, but I do not think this is the primary problem. His cardiac rhythm was watched by telemetry. There was no problem. I think that his episodes of melissa r syncope was vasovagal as a result of his nausea and vomiting. There is no evidence here of cholecys titis. We have marked that he is allergic to BACTRIM and SULFA DRUGS and TRIMETHOPRIM. He will retu rn home on his usual diet. 2. Urinary tract infection. This is now resolved. 3. Type 2 diabetes, uncontrolled. He will return to his usual regimen of insulin back home, althoug h for the first day he will take 25% less as he is usually on such large doses of insulin. 4. Congestive cardiac failure and mitral and aortic valve disease. This is back at baseline. He sanches d a recent echocardiogram that showed no further progression of his illness. 5. Weakness. This is secondary to a combination of lumbar spinal stenosis and severe diabetic neuro martin. I have spoken and emphasized with the patient and his the high risk of bed sores if he i s not mobile and discussed the strategies to avoid this. 6. Other secondary diagnoses are stable. DISCHARGE MEDICATIONS: 1. Liraglutide 1.8 mg subcutaneously daily. 2. Aspirin 81 mg daily. 3. Simvastatin 40 mg q.h.s. 4. Furosemide 40 mg twice daily. 5. Ramipril 5 mg daily. 6. Spironolactone 25 mg daily. 7. Insulin 70/30, 60 units before meals. 8. Metoprolol 25 mg daily. 9. Ventolin HFA twice daily. [id number]/[facility] #: [id number]
== END 2018-11-11 10:16 | disposition home health service (06) | DRG 442 ==
LOC: ED 17:54 → MEDTELE 22:05 → ICU 11-10 00:09 → OBSVTOIN 11-10 10:05 → MEDTELE 11-10 11:04
PROVIDERS: ADMIT Pediatrics; ATTEND Internal Medicine
DX: B17.9 Acute viral hepatitis, unspecified (principal); I13.0 Hypertensive heart and chronic kidney disease with heart failure and stage 1 through stage 4 chronic kidney disease, or unspecified chronic kidney disease; N17.9 Acute kidney failure, unspecified; N39.0 Urinary tract infection, site not specified; I50.42 Chronic combined systolic (congestive) and diastolic (congestive) heart failure; Q21.1 Atrial septal defect; E78.5 Hyperlipidemia, unspecified; E78.00 Pure hypercholesterolemia, unspecified; M19.90 Unspecified osteoarthritis, unspecified site; R00.1 Bradycardia, unspecified; I95.9 Hypotension, unspecified; N18.9 Chronic kidney disease, unspecified; I08.0 Rheumatic disorders of both mitral and aortic valves; G47.33 Obstructive sleep apnea (adult) (pediatric); E11.40 Type 2 diabetes mellitus with diabetic neuropathy, unspecified; M48.061 Spinal stenosis, lumbar region without neurogenic claudication; G89.29 Other chronic pain; E11.649 Type 2 diabetes mellitus with hypoglycemia without coma; E88.81 Metabolic syndrome and other insulin resistance; N40.0 Benign prostatic hyperplasia without lower urinary tract symptoms; E66.01 Morbid (severe) obesity due to excess calories; E11.22 Type 2 diabetes mellitus with diabetic chronic kidney disease; B96.1 Klebsiella pneumoniae [K. pneumoniae] as the cause of diseases classified elsewhere; B96.89 Other specified bacterial agents as the cause of diseases classified elsewhere; R74.0 Nonspecific elevation of levels of transaminase and lactic acid dehydrogenase [LDH]; I51.7 Cardiomegaly; R91.1 Solitary pulmonary nodule; T36.8X5A Adverse effect of other systemic antibiotics, initial encounter; E11.65 Type 2 diabetes mellitus with hyperglycemia; Y92.9 Unspecified place or not applicable; Z79.82 Long term (current) use of aspirin; I25.2 Old myocardial infarction; Z82.49 Family history of ischemic heart disease and other diseases of the circulatory system; Z83.3 Family history of diabetes mellitus; Z98.42 Cataract extraction status, left eye; Z98.41 Cataract extraction status, right eye; Z89.432 Acquired absence of left foot; Z79.4 Long term (current) use of insulin
CPT/HCPCS: 36415; 70450; 71045; 76705; 80048; 80053; 80076; 80307; 80320; 80329; 81003; 81015; 82140; 82550; 83605; 83735; 84443; 84484; 85025; 86140; 87040; 87086; 87641; 93005; 94660; 99284; A9270-GY; G0480; G8987-GO-CL; G8988-GO-CL; G8989-GO-CL; J0692; J1644

== ENCOUNTER 2018-11-11 14:58 | Emergency (ER) | payer MEDICARE ==
--- NOTE | 2018-11-11 15:24 | ED ---
Syncope/Near Syncope - HPI Summary HPI Summary: An 78 y/o M brought in by ambulance presents to ED after a syncopal episode onset [employer]. Per EMS: His visiting nurse was with him, and he stood up and had a momentary syncopal episode; patient had AMS after the episode, but that has since resolved; blood sugar was 515. Associated sx: weakness. Denies pain, SOB. Patient was released [place] [facility] [place], he was there because he had an allergic reaction from ABX. Patient uses 3L O2 at home when sleeping, as well as a C-PAP machine. - History Of Current Complaint Chief Complaint: EDGeneral Time Seen by Provider: 11/11/18 15:20 Hx Obtained From: Patient, Family/Ranger Aide - , EMS Onset/Duration: Sudden Onset, Still Present - weakness, Resolved - syncopal episode Context: Loss Of Consciousness Activity At Onset: Other - standing Associated Signs And Symptoms: AMS, Weakness, Other - pos: elevated blood sugar. neg: pain, SOB. - Allergies/Home Medications Allergies/Adverse Reactions: Allergies Allergy/AdvReac Type Severity Reaction Status Date / Time sulfamethoxazole Allergy Intermediate See Comment Verified 11/11/18 15:05 [From Bactrim] trimethoprim [From Bactrim] Allergy Intermediate See Comment Verified 11/11/18 15:05 Home Medications: Home Medications Albuterol HFA INHALER* [Ventolin HFA Inhaler*] 1 puff INH BID 11/11/18 [History Confirmed 11/11/18] Furosemide TAB* [Lasix TAB*] 40 mg PO BID 11/11/18 [History Confirmed 11/11/18] Liraglutide (NF) [Victoza (NF)] 1.8 mg SUBCUT DAILY 11/11/18 [History Confirmed 11/11/18] Ramipril CAP* [Altace CAP*] 5 mg PO DAILY 11/11/18 [History Confirmed 11/11/18] Spironolactone TAB* [Aldactone TAB*] 25 mg PO DAILY 11/11/18 [History Confirmed 11/11/18] PMH/Surg Hx/FS Hx/Imm Hx Previously Healthy: No Endocrine/Hematology History: Reports: Hx Diabetes Denies: Hx Anticoagulant Therapy, Hx Thyroid Disease, Hx Anemia Cardiovascular History: Reports: Hx Hypercholesterolemia, Hx Hypertension, Hx Myocardial Infarction, Other Cardiovascular Problems/Disorders - aortic stenosis , diastolic dysfunction Denies: Hx Angina, Hx Congestive Heart Failure, Hx Coronary Artery Disease, Hx Deep Vein Thrombosis, Hx Pacemaker/ICD, Hx Valvular Heart Disease Respiratory History: Reports: Hx Sleep Apnea Denies: Hx Asthma, Hx Chronic Obstructive Pulmonary Disease (COPD), Hx Lung Cancer, Hx Pneumonia, Hx Pulmonary Embolism GI History: Denies: Hx Gall Bladder Disease, Hx Gastrointestinal Bleed, Hx Jaundice, Hx Ulcer, Hx Urosepsis History: Denies: Hx Kidney Stones, Hx Renal Disease Musculoskeletal History: Reports: Hx Arthritis, Other Musculoskeletal History - LEFT KNEE PAIN R/T ATHRITIS Sensory History: Reports: Hx Cataracts - BILATERAL, Other Sensory Impairments - DECREASED SENSATION IN FEET AND LEGS Denies: Hx Contacts or Glasses, Hx Hearing Aid Opthamlomology History: Reports: Hx Cataracts - BILATERAL, Other Sensory Impairments - DECREASED SENSATION IN FEET AND LEGS Denies: Hx Contacts or Glasses Neurological History: Denies: Hx Dementia, Hx Headaches, Hx Migraine, Hx Seizures, Hx Transient Ischemic Attacks (TIA) Psychiatric History: Denies: Hx Anxiety, Hx Depression, Hx Panic Disorder, Hx Schizophrenia, Hx Bipolar Disorder - Surgical History Surgery Procedure, Year, and Place: 2008 LEFT GREAT TOE SURGERY [facility]. 01/2014 BILATERAL CATARACT [facility] Hx Anesthesia Reactions: No Infectious Disease History: No Infectious Disease History: Denies: Hx Clostridium Difficile, Hx Hepatitis, Hx Human Immunodeficiency Virus (HIV), Hx of Known/Suspected MRSA, Hx Shingles, Hx Tuberculosis, Hx Known/ Suspected VRE, Hx Known/Suspected VRSA, History Other Infectious Disease, Traveled Outside the [place] in Last 30 Days - Family History Known Family History: Positive: Cardiac Disease, Hypertension, Diabetes - Social History Occupation: Retired Lives: With Family Alcohol Use: None Hx Substance Use: No Substance Use Type: Reports: None Hx Tobacco Use: No Smoking Status (MU): Never Smoked Tobacco Have You Smoked in the Last Year: No Review of Systems - ROS Summary Review of Systems Summary: Denies pain. Negative: Shortness Of Breath Positive: Other - pos: elevated blood sugar Neurological: Other - pos: AMS, resolved Positive: Weakness, Syncope All Other Systems Reviewed And Are Negative: Yes Physical Exam - Summary Physical Exam Summary: Constitutional: Well-developed, Well-nourished, Alert. (-) Distressed Skin: Warm, Dry HENT: Normocephalic; Atraumatic Eyes: Conjunctiva normal Neck: Musculoskeletal ROM normal neck. (-) JVD, (-) Stridor, (-) Tracheal deviation Cardio: Rhythm regular, rate normal, Murmur; Intact distal pulses; The pedal pulses are 2+ and symmetric. Radial pulses are 2+ and symmetric. (-) Murmur Pulmonary/Chest wall: Effort normal. (-) Respiratory distress, (-) Wheezes, (-) Rales Abd: Soft, (-) tenderness, (-) Distension, (-) Guarding, (-) Rebound Musculoskeletal: Non-pitting edema in bilat LE. Lymph: (-) Cervical adenopathy Neuro: Alert, Oriented x3 Psych: Mood and affect Normal Triage Information Reviewed: Yes Vital Signs On Initial Exam: Initial Vitals Temp Pulse Resp BP Pulse Ox 97.3 F 108 18 141/81 97 11/11/18 15:00 11/11/18 15:00 11/11/18 15:00 11/11/18 15:00 11/11/18 15:00 Vital Signs Reviewed: Yes Diagnostics - Vital Signs Vital Signs Temp Pulse Resp BP Pulse Ox 11/11/18 15:00 97.3 F 108 18 141/81 97 - Laboratory Result Diagrams: 11/11/18 15:54 11/11/18 15:54 Lab Statement: Any lab studies that have been ordered have been reviewed, and results considered in the medical decision making process. - Radiology CXR Radiology Interpretation Completed By: Radiologist Summary of Radiographic Findings: IMPRESSION: Chest x-ray findings could be compatible with vascular congestion in the correct clinical setting. Overall the degree of aeration is since the November 09, 2018 chest x-ray. ED provider has reviewed this report. - EKG 1541 Cardiac Rate: Tachycardia - 106 bpm EKG Rhythm: Sinus Tachycardia EKG Comparison: Other - Significant change from EKG on 11/10/18. Summary of EKG Findings: Nml IL, new LBBB, borderline prolonged QTc. ST elevation in III and V1-V3, T-waves are non-specific. Course/Dx Course Of Treatment: Patient is an 78 y/o M presenting after syncopal episode, weakness, and with elevated blood sugar (515) [employer]. Patient was released from [facility] [place], after an allergic reaction to ABX. PE is unremarkable except for murmur and non-pitting bilat LE edema. EKG is sinus tachy at 109 bpm with ml IL, new LBBB, borderline prolonged QTc. ST elevation in III and V1- V3, T-waves are non-specific. Significant change from EKG on 11/10/18. CXR shows "findings could be compatible with vascular congestion in the correct clinical setting. Overall the degree of aeration is since the November 09, 2018 chest x-ray.". Consulted with Dr. Arevalo PCP, who recommends admission and a consult with cardiology regarding the EKG changes. Consulted with Dr. Ernandez, cardio, who recommends echo. Consulted with hospitalist oCnstance FREIRE, who will admit patient. At 1711, Dr. Small called and requsted code STEMI be called. Consulted with Dr. Peace, interventionalist, who will see patient in ED. - Diagnoses Provider Diagnoses: LBBB (left bundle branch block), Pre-syncope, Hyperglycemia During the Visit The Following Alert/Code Occurred: STEMI - code called at 1711. - Physician Notifications Discussed Care of Patient With: Roque Arevalo - PCP Time Discussed With Above Provider: 16:14 Instructed by Provider To: Other - Recommends admission. 1633: Updating him on patient's current EKG, recommends consult with cardio. - Critical Care Time Critical Care Time: 30-74 min - 40 mins CCT Discharge - Sign-Out/Discharge Documenting (check all that apply): Patient Departure - ADMIT Patient Received Moderate/Deep Sedation with Procedure: No - Discharge Plan Condition: Improved Disposition: ADMITTED TO [facility] Referrals: Roque Arevalo MD [Primary Care Provider] - - Billing Disposition and Condition Condition: IMPROVED Disposition: Admitted to [facility] - Attestation Statements Document Initiated by Lizetteibmathieu: Yes Documenting Scribe: Pina Kruse Provider For Whom Scribe is Documenting (Include Credential): Dr. Jenny Mora MD Scribe Attestation: Elba, danielle Hughesed for Dr. Jenny Mora MD on at 1751. Scribe Documentation Reviewed: Yes Provider Attestation: The documentation as recorded by the Pina barksdale accurately reflects the service I personally performed and the decisions made by me, Dr. Jenny oMra MD Status of Scribe Document: Viewed Consult Consult: 1625: Consult with Alexsandra Nolasco, hospitalist PA for Dr. Daniel, hospitalist Will admit patient. 1634: Consult with Dr. Ernandez, cardio Recommends echo. Consult again at 1711: Call STEMI code, new changes on echo. 1713: Consult with Dr. Peace, interventionalist MD will see patient in ED.
[2018-11-11] MEDS ORDERED: Insulin REGULAR(*) 1 UNITS UNIT IV PUSH ONE ×2 (15:49→18:20)
[2018-11-11 16:06] LABS: ABS Eosinophils 0.2 10^3/ul (0-0.6); ABS Lymphocytes 1.5 10^3/ul (1.0-4.8); ABS Monocytes 0.8 10^3/ul (0-0.8); ABS Neutrophils 5.8 10^3/ul (1.5-7.7); Eosinophil % 2.7 %; Hematocrit 40 % (42-52); Hemoglobin 13.2 g/dL (14.0-18.0); Lymphocyte % 17.8 %; Mean Corpuscular HGB Conc 33 g/dL (31-36); Mean Corpuscular Hemoglobin 31 pg (27-31); Mean Corpuscular Volume 93 fL (80-94); Mean Platelet Volume 8.6 fL (7.4-10.4); Platelet Count 280 10^3/uL (150-450); Red Blood Count 4.28 10^6 /uL (4.18-5.48); Red Cell Distribution Width 15 % (10.5-15); White Blood Count 8.4 10^3/uL (3.5-10.8)
[2018-11-11 16:23] LABS: ALT 69 U/L (7-52); AST 46 U/L (13-39); Albumin 4.1 g/dL (3.2-5.2); Albumin/Globulin Ratio 1.1 (1-3); Alkaline Phosphatase 195 U/L (34-104); BUN/Creatinine Ratio 13.4 (8-20); Blood Urea Nitrogen 20 mg/dL (6-24); C Reactive Protein 7.48 mg/L (<8.01); CO2 Carbon Dioxide 22 mmol/L (22-32); Calcium 9.4 mg/dL (8.6-10.3); Chloride 99 mmol/L (101-111); EGFR African American 54.9 (>60); EGFR Non-African American 45.4 (>60); Globulin 3.7 g/dL (2-4); Glucose 477 mg/dL (70-100); Sodium 130 mmol/L (135-145); Total Protein 7.8 g/dL (6.4-8.9)
[2018-11-11 16:24] LABS: Anion Gap 9 mmol/L (2-11); Potassium 5.4 mmol/L (3.5-5.0)
[2018-11-11 16:25] LABS: Troponin I 0.04 ng/mL (<0.04)
[2018-11-11] MEDS ORDERED: nitroGLYCERIN DRIP* 25,000 MCG/250 ML BTL ONE (17:19)
[2018-11-11] MEDS ORDERED: Lidocaine 1% INJ* 10 MG/ML 30 ML SDV ONE (17:19)
[2018-11-11] MEDS ORDERED: Heparin(*) 1000 UNIT/ML 10 ML VIAL CATH LAB IV ONE (17:19)
[2018-11-11] MEDS ORDERED: Iodixanol 320 (CONTRAST) 100 ML SDV ONE (17:19)
[2018-11-11] MEDS ORDERED: VERAPAMIL 2.5 MG/ML 2 ML VIAL ** 5 mg/2 ml ONE (17:19)
[2018-11-11] MEDS ORDERED: Midazolam* 1 MG/ML 5 ML VIAL (5 MG) ONE (17:19)
[2018-11-11] MEDS ORDERED: fentaNYL* 50 MCG/ML 2 ML VIAL (100 MCG VIAL) ONE (17:19)
[2018-11-11] MEDS ORDERED: Heparin 2 UNITS/ML IVPREMIX* 2,000 UNIT/1,000 ML BAG IV ONE (17:20)
[2018-11-11] MEDS ORDERED: Aspirin EC TAB* 81 MG TAB.EC ONE (17:54)
[2018-11-11] MEDS ORDERED: Heparin for STEMI(*) 5,000 UNITS/ML 1 ML VIAL IV ONE ×2 (17:54→18:00)
[2018-11-11] MEDS ORDERED: Aspirin 81 mg CHEW TAB* 81 MG TAB.CHEW ONE (17:56)
[2018-11-11] MEDS ORDERED: Aspirin 81 mg CHEW TAB* 81 MG TAB.CHEW PO ONE (18:00)
[2018-11-11] MEDS ORDERED: Heparin DRIP 25,000 UNITS(*) 25,000 UNITS/500 ML BAG IV SCH ×3 (18:30→18:45)
[2018-11-11] MEDS ORDERED: Heparin DRIP 25,000 UNITS(*) 25,000 UNITS/500 ML BAG ONE (18:40)
[2018-11-11 18:50] LABS: Creatine Kinase 100 U/L (10-223)
[2018-11-11 18:55] LABS: Troponin I 0.04 ng/mL (<0.04)
[2018-11-11] MEDS ORDERED: Heparin VIAL(*) 5000 UNITS/ML VIAL (FIVE THOUSAND) IV PRN (19:00)
[2018-11-11] MEDS ORDERED: NS 0.9% 1000 ML** 1,000 ML IV SCH (19:00)
[2018-11-11] MEDS ORDERED: Insulin GLARGINE(*) 1 UNITS UNIT SUBCUT ONE (19:05)
[2018-11-11] MEDS ORDERED: Insulin NPH(*) 1 UNITS UNIT SUBCUT ONE (19:05)
--- NOTE | 2018-11-11 19:08 | ECHO ---
*[facility]* [place] [address] Fax #: [phone] Limited Transthoracic Echocardiogram Patient: Lona, Height: 74 in / 188 Julia auguste : 1940 Weight: 253 lb / Study Date: 11/11/2018 115 kg Age: 78 BP: 136 / 99 Gender: M BMI/BSA: 32.5 kg/m^2 HR: 106 bpm / 2.48 m^2 *Ticket Broker: Sophia Daniels [facility] *Referring Physician: * Jenny Mora *Reading Physician: Tone Kraus MD Indications: Abnormal EKG. Chest Pain, unspecified. Focused study to assess left ventricle function in light of a new LBBB. History: Congestive heart failure. Aortic stenosis. Mitral regurgitation. PMH: Cardiomyopathy. Risk factors: Diabetes mellitus. Dyslipidemia. Conclusions Summary: 1. Study data: Interval decrease in ejection fraction from 45-50% then to 30-35% now. 2. Left ventricle: The estimated ejection fraction is 30-35%. Severe diffuse hypokinesis. 3. Regional wall motion abnormality: Akinesis of the basal inferoseptal myocardium; severe hypokinesis of the mid anteroseptal, mid inferior, and basal inferolateral myocardium; moderate hypokinesis of the mid anterior myocardium; mild hypokinesis of the apical anterior, mid inferoseptal, basal and apical inferior, mid anterolateral, apical lateral, and apical myocardium. 4. Regional wall motion abnormality: Moderate hypokinesis of the apical septal myocardium. 5. Right ventricle: Systolic function is moderately to severely reduced. 6. Aortic valve: The findings are consistent with moderate to severe stenosis. Possiblty severe by 2d. Study data: Transthoracic echocardiogram, limited study. Procedure: Transthoracic echocardiography was performed. Image quality was fair. Location: Emergency department. Patient status: Inpatient. Patient room number: 16. Comparison is made to the study of October 2018. Interval decrease in ejection fraction from 45-50% in 10/23 to 30-35% now. Rhythm: Normal sinus rhythm. Findings Left ventricle: The cavity size is normal. Wall thickness is mildly increased. The estimated ejection fraction is 30-35%. Severe diffuse hypokinesis. There is interventricular dyssynchrony. Regional wall motion abnormalities: Hypokinesis of the inferoseptal myocardium. Hypokinesis of the anterior myocardium. Akinesis of the basal inferoseptal myocardium; severe hypokinesis of the mid anteroseptal, mid inferior, and basal inferolateral myocardium; moderate hypokinesis of the mid anterior myocardium; mild hypokinesis of the apical anterior, mid inferoseptal, basal and apical inferior, mid anterolateral, apical lateral, and apical myocardium. Moderate hypokinesis of the apical septal myocardium. Right ventricle: The cavity size is normal. Systolic function is moderately to severely reduced. Aortic valve: The findings are consistent with moderate to severe stenosis. Pericardium: There is no significant pericardial effusion. Prepared and electronically signed by Tone Ernandez MD 11/11/2018 19:08
--- NOTE | 2018-11-11 19:28 | TRS ---
CC: [facility] Dr. Jha, Dr. Arevalo, Dr. Inman CONSULTATION/TRANSFER SUMMARY DATE OF CONSULT: 11/11/18 PHYSICIANS: Patient of Dr. Arevalo and Dr. Inman. Urgent consultation from the Emergency Department Dr. George. REASON FOR CONSULT: Weakness, new left bundle. HISTORY OF PRESENT ILLNESS: In brief, this is a complicated 78-year-old gentleman with a history of moderate to severe MR and multivessel coronary disease, and mild to moderate . He also has a history of diabetes, hyperlipidemia, hypertension, chronic lower extremity edema. He has had admissions for heart failure in the past, most recent was in 2018. He was referred for possible mitral valve replacement. He has had mildly reduced LV function. NINFA in September of 2017 revealed an EF of 45% with mild to moderate and moderate to severe MR, posterolateral wall jet, anterior flail leaflet and ruptured chordae. He was felt to be high risk for surgical intervention and was referred for MitraClip evaluation. He was seen by Dr. Nj in November of 2017 for evaluation of a MitraClip. He was felt to have symptomatic moderate to severe MR, moderate aortic stenosis. He had a repeat NINFA on December 2017 and was felt to have moderate with a mean gradient of 17, moderate to severe MR with partial flail of A2 and a ruptured chordae. He had a catheterization on which revealed 3 vessel obstructive disease and a 50% left main, and he was referred to Dr. Jeong. 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 He anticipated a mortality rate of 12% to 20% and stroke rate of 5% to 10%, and risk of permanent dialysis greater than 10%. Because of those risks it was felt that he was a prohibitive surgical candidate at that point and it was decided not to proceed with surgery, it was decided that he would discuss again interventional options. Apparently the patient was feeling well and chose not to followup. He has been weak and limited to walking short distances due to shortness of breath. He was weaker recently and was admitted for possible UTI after a near syncopal episode. He was noted to have a mildly elevated troponin during the admission and felt better today after a course of antibiotics and was being discharged. When he got home he was weaker, had a near syncopal episode trying to get from his wheelchair to the bed, and because of those symptoms he came back to the ER. In the ER he was noted to be tachycardic and have a new left bundle branch block. He also had a troponin at 0.04 at 1554 today. His troponin on 11/09/18 was 0.06 and on the evening of 11/09/18 was 0.07. He was noted to have sinus tachycardia with a new left bundle compared to 11/10/18 when he had sinus rhythm with minor nonspecific lateral ST changes. He also had a stat echo done which revealed what appeared to be new wall motion abnormalities compared to the previous. Echocardiogram from 10/07/18 had revealed moderate to severe aortic stenosis with valve area of 1 cm2, moderate to severe MR, borderline mitral stenosis, EF of 45% to 50%, global hypokinesis with additional septal hypokinesis, and compared to the NINFA of September 2017 the EF was stable, the RV function was stable, the had prior been estimated at 1.1 cm2 and the MR was stable. His echo from today revealed more severely decreased LV function with multiple wall motion abnormalities, EF of 25% to 30% , more prominent anterior anterior-septal severe hypokinesis. The patient denies any chest pain. He does say he felt weak and short of breath with exertion earlier today. Denies fevers, chills, sweats, hematemesis, hematochezia , strokes or mini strokes. His cath from 2017 revealed a 50% stenosis in distal left main. There was a long 90% stenosis in the proximal left circ starting at the OM2 and an 80% stenosis in the mid segment. The LAD was diffusely diseased, there was a long 70 % to 80% lesion with disease into the osteal LAD. There was a long 70% to 80% stenosis in the proximal D1 and the ostium. The RCA had diffuse luminal irregularities with an 80% stenosis of the RCA. The ramus intermedius was a long medium to large caliber vessel with a 70% ostial stenosis. ALLERGIES: 1. SULFAMETHOXAZOLE. 2. BACTRIM. MEDICATIONS: His home medications include: 1. Spironolactone 25 mg a day. 2. Ramipril 5 mg a day. 3. Metoprolol succinate 25 mg a day. 4. Simvastatin 40 mg at bedtime. 5. Furosemide 40 mg b.i.d. 6. Aspirin 81 mg a day. As an inpatient: IV heparin added. SOCIAL HISTORY: Denies tobacco use or alcohol use. He is from [facility]. 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 He is , accompanied by his and has 2 daughters. PHYSICAL EXAMINATION: General: He is a well developed, well nourished gentleman. Obese. HEENT: Atraumatic, normocephalic. Neck: No significant JVD, carotids delayed and diminished. Cardiac: S1, S2 with a 3/6 ejection murmur at the base radiating across the precordium. Single S2. Chest: Soft rales at the left base. Abdomen: Bowel sounds present. Nontender. Extremities: Femoral pulses present. Distal pulses present. He has chronic venous stasis changes. Trace edema. Neurologic: Alert and oriented x3. DIAGNOSTIC STUDIES/LAB DATA: Laboratories as above. Potassium 5.4. BUN 20, creatinine 1.5. Glucose was elevated greater than 477. Transaminase mildly elevated. AST 46, SLT 69, alk phos 195. Troponin 0.04. Chest x-ray revealed mild vascular congestion. IMPRESSION: My impression is that Mr. Zamorano has multiple medical problems and high risk cardiovascular situation, including known multi vessel coronary disease, , MR, and now new left bundle with severely decreased LV function, raising possibility of acute AK. The case was discussed with our interventionalist Dr. Hanson, patient, his and with Dr. Arevalo via telephone. His prognosis is extremely guarded in this critical situation. His interventional options are also a high risk including attempt at revascularization percutaneously or surgery. I have discussed this at length with him and his , and at this point they are willing to proceed with consideration of revascularization and surgery. Dr. Hanson has kindly reviewed the case with Dr. Jha the interventionalist from [facility] and he has agreed to accept him in transfer, so this is the plan at this point in time. The presentation is somewhat puzzling with weakness, new left bundle and LV dysfunction. It is unclear whether this is a acute coronary syndrome at present or not as discussed with Dr. Hanson and the family. RECOMMENDATIONS: For the time being I have recommended the followin. Will start IV heparin. 2. Will continue his medications. 3. He is to start aspirin 325 chewed now. 4. We will arrange transfer for further evaluation to [facility] for consideration of his interventional options. His prognosis is extremely guarded which is understood by the patient and his family, and Dr. Arevalo. 5. Will hold is spironolactone and ramapril for now given his hyperkalemia. He understands that his kidneys are at risk at an interventional procedure and he may require treatment for renal failure either acute and/or possibly permanent. TIME SPENT: Critical Care 75+ minutes spent discussing with the ER staff, hospitalist, Dr. Hanson, patient, his , Dr. Arevalo and coordinating care. [id number]/[facility] #: [id number] addendum: second tropinin was still less than .1. Unclear if this is an acute coronary syndrome or decompensating CHF due to MR and worsening LV dysfunction due to valvular heart disease and tachycardia and perhaps rate related ischemia / LBBB. I disucssed this with the pt, his , and Dr. Hanson. He understands that his recent decrease in exercise capacity and energy is probably related to progression of his underlying valvular heart disease, coronary disease, and LV dysfunction. He is willing to proceed with transfer to further evaluate his options for revascularization/AVR/MVR understanding intervention is high risk and medical rx would be associated with a poor prognosis. CRISTIANA 5.8.19 additional 20 minutes face to face and coordinating care. DINORA
[2018-11-11 20:08] LABS: CO2 Carbon Dioxide 18 mmol/L (22-32); Calcium 9.1 mg/dL (8.6-10.3); Chloride 100 mmol/L (101-111); Sodium 129 mmol/L (135-145)
[2018-11-11 20:14] LABS: ALT 64 U/L (7-52); Alkaline Phosphatase 196 U/L (34-104); Anion Gap 11 mmol/L (2-11); BUN/Creatinine Ratio 14.9 (8-20); Blood Urea Nitrogen 22 mg/dL (6-24); EGFR African American 55.3 (>60); EGFR Non-African American 45.7 (>60); Globulin 3.9 g/dL (2-4); Glucose 422 mg/dL (70-100); Total Protein 7.9 g/dL (6.4-8.9)
[2018-11-11 21:07] LABS: Potassium Redraw 4.8 mmol/L (3.5-5.0)
[2018-11-11 22:06] VITALS: BP 122/73
--- NOTE | 2018-11-11 22:20 | CONS ---
CC: Dr. Arevalo; Dr. Inman* [facility] MEDICINE CONSULTATION REPORT: DATE OF CONSULT: 11/11/18 PROVIDER: Jessica Nolasco NP ATTENDING PHYSICIAN: Dr. George in the emergency room. CONSULTING PHYSICIAN: Dr. Carleen Daniel. REASON FOR CONSULT: Weakness, new left bundle-branch block. HISTORY OF PRESENT ILLNESS: Mr. Zamorano is an 78-year-old gentleman with a past medical history significant for weakness, dehydration, history of congestive heart failure, diabetes, owizjqiw-cg-wvyhne MR, obstructive sleep apnea, diabetic neuropathy, high cholesterol, aortic stenosis, and spinal stenosis, who was recently admitted at the hospital from 11/09/18 to 11/11/18, was discharged home approximately 10 a.m. The patient reports when he got home, he got out of the car, he was wheelchaired into the house. He reports that he felt weak and unsteady and almost collapsed. The patient's reports that she took his blood sugar and found his blood sugar to be 515, and due to his weakness and trouble ambulating with elevated blood sugar, they called the EMS and the patient was brought back to the emergency room for further evaluation. The patient denies any chest pain or shortness of breath. He denies any recent fever or chills, cough or hemoptysis. Denies any nausea, vomiting, diarrhea, abdominal pain, gross hematuria or dysuria. Denies any focal weakness or sensory loss. Denies any dysphagia, rashes, lesions or open sores. While in the emergency room, the patient had routine lab work drawn. He was found to have a troponin of 0.04. His EKG shows a new left bundle-branch block. Dr. Ernandez from Cardiology was consulted and recommended a transthoracic echocardiogram. The patient was also found to have a blood sugar greater than 444, repeat on lab work was found to be 477. Due to his hyperglycemia, new left bundle- branch block, we were asked to see and evaluate the patient for potential admission. PAST MEDICAL HISTORY: 1. Weakness, dehydration. 2. Congestive heart failure. 3. Insulin-dependent diabetes. 4. Ybuglitf-mi-sbbsit MR. 5. Aortic stenosis. 6. Obstructive sleep apnea. 7. Diabetic neuropathy. 8. Hyperlipidemia. 9. Obesity. 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 HOME MEDICATIONS: 1. Liraglutide 1.8 mg subcutaneously daily. 2. Aspirin 81 mg p.o. daily. 3. Simvastatin 40 mg at h.s. 4. Furosemide 40 mg b.i.d. 5. Ramipril 5 mg p.o. daily. 6. Spironolactone 25 mg p.o. daily. 7. Insulin 70/30, 60 units before meals. 8. Metoprolol 25 mg p.o. daily. 9. Ventolin HFA inhaler twice daily. ALLERGIES: Allergic to BACTRIM. FAMILY HISTORY: No reported history of coronary artery disease. Mother and father with diabetes. No reported history of cancer. SOCIAL HISTORY: The patient lives with his . 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 assists with his care at home. He uses a cane or a walker and a wheelchair for mobility. The patient denies any history of smoking alcohol or illicit drug use. In the event, he is unable to make his own decisions, his is his healthcare proxy and surrogate decision maker. He is a full code. REVIEW OF SYSTEMS: The patient denies any fever, chills or unintended weight loss. He denies any chest pain or edema. Denies any cough, hemoptysis or shortness of breath. No nausea, vomiting, diarrhea, abdominal pain, gross hematuria, dysuria, focal weakness or sensory loss. Denies any visual complaints, dysphagia, arthralgias, myalgias, rashes, lesions or open sores. The patient does complain of weakness as his only complaint. PHYSICAL EXAM: General: At this time, Mr. Zamorano is in no acute distress, resting on the stretcher in the emergency room. Vital Signs: Temperature was 97.3, heart rate is , respirations are 16, O2 saturation 93%, blood pressure 102/81. HEENT: Head is atraumatic, normocephalic. Eyes: EOMs are intact. Sclerae anicteric and not pale. Oral mucosa appeared to be moist. Neck is supple. Lungs are clear to auscultation bilaterally. No wheezes, rales or rhonchi. Cardiac: S1, S2. He is tachycardic. He does have a loud systolic murmur. Abdomen is obese, soft, and nontender. Bowel sounds are present x4. Skin is intact. Neurologic: He is awake, alert, and oriented x3. His speech is clear. Thought process intact. There is no gross focal deficits. DIAGNOSTIC STUDIES/LAB DATA: WBCs are 8.5, RBCs 4.28, hemoglobin 13.2, hematocrit was 48, platelet count was 280. Sodium 138, potassium 5.4, chloride 99, carbon dioxide was 22, anion gap was 9, BUN was 20, creatinine 1.49, glucose was 477. Lactic acid was 1.9, calcium 9.4, magnesium 2.0. T-bilirubin was 0.30, ASTs were 46, ALTs were 69, alkaline phosphatase was 195. Troponin was 0.04. C-reactive protein was 7.48. He had a chest x-ray. Radiologist's impression: Chest x-ray compatible with vascular congestion in the right clinical setting. Overall aeration has improved since previous chest x-ray on 11/09/18. He had a transthoracic echocardiogram. Conclusion: Decreased ejection fraction from 45% to 50% to 30% to 35% now, left ventricular estimated ejection fraction 30% to 35%, severe diffuse hypokinesis, regional wall motion abnormality, akinesis of the basal inferoseptal myocardium, severe hypokinesis in the anteroseptal and mid inferior and basal inferolateral myocardium, moderate hypokinesis in the mid anterior myocardium, mild hypokinesis in the apical anterior and mid inferoseptal basal and apical, inferior, mid anterolateral, apical lateral wall , and apical myocardium. Right ventricle: The cavity size is normal. Systolic function is moderately to severely reduced. The aortic valve findings consistent with tygfzzao-sn-szeobk stenosis. IMPRESSION AND PLAN: Mr. Zamorano is an 78-year-old gentleman who presented to emergency room after discharge earlier today with complaints of weakness and hyperglycemia. He was found to have a new left bundle-branch block. A STEMI was called in the emergency room. He was seen in consultation by Dr. Ernandez from Cardiology, who has recommended that the patient be transferred to [facility] for further intervention. At this time, we will recommend continuing with Cardiology's recommendation for transfer to [facility] for further management of his new left bundle-branch block. TIME SPENT: Time spent on this consultation was 45 minutes; greater than half that time was spent at the bedside reviewing events leading thus far to his hospitalization, performing physical exam, and reviewing my plan of care. I have discussed with my attending, Dr. Carleen Daniel; she is in agreement with my plan. Thank you for allowing me to consult in the plan of care for this patient. JESSICA NOLASCO, BUSINESS UNIT MANAGER [id number]/[facility] #: [id number] MTDIsauro
== END 2018-11-11 22:32 | disposition short-term general hospital (02) ==
LOC: ED 14:58
DX: I44.7 Left bundle-branch block, unspecified (principal); R55 Syncope and collapse; E11.65 Type 2 diabetes mellitus with hyperglycemia; I10 Essential (primary) hypertension; I25.2 Old myocardial infarction; E78.00 Pure hypercholesterolemia, unspecified; Z88.2 Allergy status to sulfonamides; Z88.3 Allergy status to other anti-infective agents; Z79.899 Other long term (current) drug therapy; R94.31 Abnormal electrocardiogram [ECG] [EKG]
CPT/HCPCS: 36415; 71045; 80053; 82550; 83605; 83735; 83874; 84484; 85025; 86140; 93005; 93306; 96365; 96366; 96372; 99285; A9270-GY; J1644; J2250; J3010

== ENCOUNTER 2019-02-03 19:55 | Inpatient (IN) | payer MEDICARE ==
--- NOTE | 2019-02-03 20:50 | ED ---
GI/ HPI - HPI Summary HPI Summary: This patient is a 78 year old M presenting to [facility] by EMS accompanied by with a chief complaint of blood in stool 2-3x today. Pt had aortic valve repaired at [facility]. Pt lives at [facility]. Patient denies abdominal pain, constipation. - History of Current Complaint Chief Complaint: EDGIBleed Time Seen by Provider: 02/03/19 20:29 Stated Complaint: RECTAL BLEEDING PER EMS Hx Obtained From: Patient Onset/Duration: Started Hours Ago Timing: Intermittent Current Severity: None Pain Intensity: 0 Associated Signs and Symptoms: Positive: Blood w/Stool. Negative: Constipation , Abdominal Pain Aggravating Factor(s): Nothing Alleviating Factor(s): Nothing - Additional Pertinent History Primary Care Physician: [id number] - Allergy/Home Medications Allergies/Adverse Reactions: Allergies Allergy/AdvReac Type Severity Reaction Status Date / Time sulfamethoxazole Allergy Intermediate See Comment Verified 11/11/18 15:05 [From Bactrim] trimethoprim [From Bactrim] Allergy Intermediate See Comment Verified 11/11/18 15:05 Home Medications: Home Medications Clopidogrel Bisulfate [Plavix] 75 mg PO DAILY 02/03/19 [History Confirmed ] Ferrous Sulfate 325 mg PO DAILY 02/03/19 [History Confirmed 02/03/19] Melatonin [Meladox] 3 mg PO BEDTIME 02/03/19 [History Confirmed 02/03/19] PMH/Surg Hx/FS Hx/Imm Hx Endocrine/Hematology History: Reports: Hx Diabetes Denies: Hx Anticoagulant Therapy, Hx Thyroid Disease, Hx Anemia Cardiovascular History: Reports: Hx Hypercholesterolemia, Hx Hypertension, Hx Myocardial Infarction, Other Cardiovascular Problems/Disorders - aortic stenosis , diastolic dysfunction Denies: Hx Angina, Hx Congestive Heart Failure, Hx Coronary Artery Disease, Hx Deep Vein Thrombosis, Hx Pacemaker/ICD, Hx Valvular Heart Disease Respiratory History: Reports: Hx Sleep Apnea Denies: Hx Asthma, Hx Chronic Obstructive Pulmonary Disease (COPD), Hx Lung Cancer, Hx Pneumonia, Hx Pulmonary Embolism GI History: Denies: Hx Gall Bladder Disease, Hx Gastrointestinal Bleed, Hx Jaundice, Hx Ulcer, Hx Urosepsis History: Denies: Hx Kidney Stones, Hx Renal Disease Musculoskeletal History: Reports: Hx Arthritis, Other Musculoskeletal History - LEFT KNEE PAIN R/T ATHRITIS Sensory History: Reports: Hx Cataracts - BILATERAL, Other Sensory Impairments - DECREASED SENSATION IN FEET AND LEGS Denies: Hx Contacts or Glasses, Hx Hearing Aid Opthamlomology History: Reports: Hx Cataracts - BILATERAL, Other Sensory Impairments - DECREASED SENSATION IN FEET AND LEGS Denies: Hx Contacts or Glasses Neurological History: Denies: Hx Dementia, Hx Headaches, Hx Migraine, Hx Seizures, Hx Transient Ischemic Attacks (TIA) Psychiatric History: Denies: Hx Anxiety, Hx Depression, Hx Panic Disorder, Hx Schizophrenia, Hx Bipolar Disorder - Surgical History Surgery Procedure, Year, and Place: 2008 LEFT GREAT TOE SURGERY [facility]. 01/2014 BILATERAL CATARACT [facility] Hx Anesthesia Reactions: No Infectious Disease History: No Infectious Disease History: Denies: Hx Clostridium Difficile, Hx Hepatitis, Hx Human Immunodeficiency Virus (HIV), Hx of Known/Suspected MRSA, Hx Shingles, Hx Tuberculosis, Hx Known/ Suspected VRE, Hx Known/Suspected VRSA, History Other Infectious Disease, Traveled Outside the [place] in Last 30 Days - Family History Known Family History: Positive: Cardiac Disease, Hypertension, Diabetes - Social History Occupation: Retired Alcohol Use: None Hx Substance Use: No Substance Use Type: Reports: None Hx Tobacco Use: No Smoking Status (MU): Never Smoked Tobacco Have You Smoked in the Last Year: No Review of Systems Negative: Fever Gastrointestinal: Other - pos - Blood with Stool Negative: Abdominal Pain, Other - Constipation All Other Systems Reviewed And Are Negative: Yes Physical Exam - Summary Physical Exam Summary: VITAL SIGNS: Reviewed. GENERAL: Patient is a well-developed and nourished male who is lying comfortable in the stretcher. Patient is not in any acute respiratory distress. HEAD AND FACE: No signs of trauma. No ecchymosis, hematomas or skull depressions. No sinus tenderness. EYES: PERRLA, EOMI x 2, No injected conjunctiva, no nystagmus. EARS: Hearing grossly intact. Ear canals and tympanic membranes are within normal limits. MOUTH: Oropharynx within normal limits. NECK: Supple, trachea is midline, no adenopathy, no JVD, no carotid bruit, no c- spine tenderness, neck with full ROM CHEST: Symmetric, no tenderness at palpation LUNGS: Clear to auscultation bilaterally. No wheezing or crackles. CVS: Regular rate and rhythm, S1 and S2 present, no murmurs or gallops appreciated. ABDOMEN: Soft, non-tender. No rebound no guarding, and no masses palpated. Belly distended, hypoactive bowel sounds EXTREMITIES: FROM in all major joints, no edema, no cyanosis or clubbing. NEURO: Alert and oriented x 3. No acute neurological deficits. Speech is normal and follows commands. SKIN: Dry and warm RECTAL: No masses, no external hemorrhoids, maroon blood on examining finger, no active bleeding. Triage Information Reviewed: Yes Vital Signs On Initial Exam: Initial Vitals Temp Pulse Resp BP Pulse Ox 97.5 F 79 18 122/73 96 02/03/19 20:02 02/03/19 20:02 02/03/19 20:02 02/03/19 20:02 02/03/19 20:02 Vital Signs Reviewed: Yes Diagnostics - Vital Signs Vital Signs Temp Pulse Resp BP Pulse Ox 02/03/19 20:02 97.5 F 79 18 122/73 96 - Laboratory Result Diagrams: 02/03/19 20:30 02/03/19 20:30 Lab Statement: Any lab studies that have been ordered have been reviewed, and results considered in the medical decision making process. - EKG 2117 Summary of EKG Findings: An EKG at 2117 reveals paced rhythm 76 bpm, Q-wave in inferior lead. GIGU Course/Dx - Course Course Of Treatment: This patient is a 78 year old M presenting to [facility] by EMS accompanied by with a chief complaint of blood in stool 2-3x today. Pt had aortic valve repaired at [facility]. Pt lives at [facility]. Patient denies abdominal pain, constipation. Physical exam findings are nml except pt is morbidly obese, has belly distended, and hypoactive bowel sounds. Rectal exam: no masses, no external hemorrhoids, maroon blood on examining finger, no active bleeding. Blood work obtained. WBC is 11.5, Hgb is 12.9, Hct is 39, Sodium is 133, Chloride is 97, BUN is 26, Creatinine is 1.21, BUN/Creatinine Ratio is 21.5 , Glucose is 321, Alkaline Phosphatase is 140, and Albumin/Globulin Ratio is 0.9. An EKG at 2117 reveals paced rhythm 76 bpm, Q-wave in inferior lead. We discussed patient care with Dr. Dye and they accept pt for admission. Patient will be admitted. The patient is agreeable with this plan. - Diagnoses Provider Diagnoses: GI bleed - Physician Notifications Discussed Care Of Patient With: Asia M Hardik Time Discussed With Above Provider: 22:30 Instructed by Provider To: Other - Discussed pt case with Dr. Dye, who accepts pt for admission. Discharge - Sign-Out/Discharge Documenting (check all that apply): Patient Departure - Admit Patient Received Moderate/Deep Sedation with Procedure: No - Discharge Plan Condition: Fair Disposition: ADMITTED TO [facility] Referrals: Roque Arevalo MD [Primary Care Provider] - - Attestation Statements Document Initiated by Scribe: Yes Documenting Scribe: Gela Murillo Provider For Whom Scribe is Documenting (Include Credential): Dr. Teena Antunez MD Scribe Attestation: Gela Arreola, scribed for Dr. Teena Antunez MD on 02/03/19 at 2314. Status of Scribe Document: Ready
[2019-02-03 21:35] LABS: ABS Eosinophils 0.3 10^3/ul (0-0.6); ABS Lymphocytes 1.9 10^3/ul (1.0-4.8); ABS Monocytes 0.9 10^3/ul (0-0.8); ABS Neutrophils 8.3 10^3/ul (1.5-7.7); Hematocrit 39 % (42-52); Hemoglobin 12.9 g/dL (14.0-18.0); Lymphocyte % 16.4 %; Mean Corpuscular HGB Conc 33 g/dL (31-36); Mean Corpuscular Hemoglobin 29 pg (27-31); Mean Corpuscular Volume 88 fL (80-94); Mean Platelet Volume 9.2 fL (7.4-10.4); Platelet Count 254 10^3/uL (150-450); Red Blood Count 4.42 10^6 /uL (4.18-5.48); Red Cell Distribution Width 15 % (10-15); White Blood Count 11.5 10^3/uL (3.5-10.8)
[2019-02-03 21:42] LABS: Albumin 3.5 g/dL (3.2-5.2); Albumin/Globulin Ratio 0.9 (1-3); BUN/Creatinine Ratio 21.5 (8-20); Calcium 8.9 mg/dL (8.6-10.3); EGFR African American 69.8 (>60); EGFR Non-African American 57.7 (>60); Globulin 3.7 g/dL (2-4); Potassium 4.2 mmol/L (3.5-5.0); Total Bilirubin 0.3 mg/dL (0.2-1.0); Total Protein 7.2 g/dL (6.4-8.9)
[2019-02-03 21:43] LABS: Activated Partial Thrombo Time 30.1 seconds (26.0-38.0); INR 1.03 (0.82-1.09)
[2019-02-03] MEDS ORDERED: Acetaminophen TAB* 325 MG PO PRN (22:49)
[2019-02-03] MEDS ORDERED: Ondansetron INJ* 2 MG/ML VIAL IV PRN (22:49)
[2019-02-03] MEDS ORDERED: Albuterol HFA INHALER* 8 gm MDI INH PRN (23:18)
[2019-02-04 00:48] LABS: Hematocrit 40 % (42-52); Hemoglobin 13.3 g/dL (14.0-18.0)
[2019-02-04] MEDS ORDERED: Insulin LISPRO* 1 UNITS UNIT SUBCUT ONE (00:49)
--- NOTE | 2019-02-04 01:14 | HP ---
CC: Dr. Arevalo.* HISTORY AND PHYSICAL: DATE OF ADMISSION: 02/03/19 PRIMARY CARE PROVIDER: Dr. Arevalo. CHIEF COMPLAINT: Bright red blood per rectum. HISTORY OF PRESENT ILLNESS: Mr. Zamorano is an 78-year-old male who has a complicated medical history in that he had a history of severe aortic stenosis and congestive heart failure who had an extensive hospitalization at [facility], where he underwent TAVR and mitral valve clipping as well as single vessel stenting. The patient was discharged from [facility] to [facility] where he underwent physical therapy. The patient was discharged from [facility] to home. He was home for approximately 1 week; however, was still not doing as well as he could and his was unable to care for him and therefore, he was brought to [facility] for subacute rehab. The patient's admission to [facility] occurred on 01/19/19. I saw the patient myself on for an initial history and physical. At that time, he stated he was doing quite well. He was enjoying the work with physical therapy; however, notes that they were putting him through his paces. He has continued to work with physical therapy and he and his feel that he has been improving. The biggest issue over the last 2 weeks or so is that the patient has been severely constipated. His bowel regimen was adjusted and he was receiving twice daily MiraLAX as well as prune juice and other treatments for his constipation. The patient finally had a soft bowel movement with maroonish colored blood at approximately 5 p.m. on the day of admission. The patient then had 2 loose stools also mixed with maroonish colored blood. The patient denies any pain prior to or after the bowel movement. He denies any chest pain. He denies any lightheadedness or dizziness. He has had no shortness of breath. He has had no fevers or chills. He essentially feels at his baseline; however, was concerned about the bloody bowel movements. There was report given to me verbally from the nurse at [facility] that the patient has possibly a colonic or rectal mass. I unfortunately do not have these records. We can attempt to get records from [facility] discussing what was found. PAST MEDICAL HISTORY: 1. History of congestive heart failure - improved, status post TAVR and mitral valve clipping. 2. Insulin dependent diabetes. 3. Cbnzakkr-pg-qpasce MR status post mitral valve clipping. 4. Aortic stenosis status post TAVR. 5. DENIS. 6. Diabetic neuropathy. 7. Hyperlipidemia. 8. Obesity. PAST SURGICAL HISTORY: 1. 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 2. TAVR. 3. Mitral valve clipping. MEDICATIONS: 1. Simvastatin 40 mg p.o. q.h.s. 2. Plavix 75 mg p.o. daily. 3. Metoprolol tartrate 25 mg p.o. daily. 4. Ferrous sulfate 325 mg p.o. daily. 5. Aspirin 81 mg p.o. daily. 6. Lasix 40 mg p.o. twice daily. 7. Ventolin 2 puffs inhaled q.6 hours p.r.n. shortness of breath. 8. Victoza 1.8 mg subcutaneous daily. 9. Senna 1 tablet p.o. q.24 hours p.r.n. constipation. 10. Calazime skin protectant applied to buttocks topically every morning and bedtime. 11. Glycerin suppository, 1 suppository rectally q.12 hours p.r.n. constipation. 12. MiraLAX 17 g p.o. twice daily. 13. Lactulose 30 mL p.o. q.24 hours p.r.n. constipation. 14. Melatonin 3 mg p.o. q.h.s. 15. Novolin 70/30 30 units subcutaneous before meals. ALLERGIES: BACTRIM. FAMILY HISTORY: The patient's mom and dad both had diabetes. There is no report of coronary artery disease. SOCIAL HISTORY: The patient is . He lives with his ; however, currently he is at subacute rehab at [facility]. 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 He does not drink alcohol. His is his healthcare proxy. REVIEW OF SYSTEMS: A complete 11-system review of systems is obtained. Pertinent positives and negatives are as per HPI and otherwise negative. PHYSICAL EXAMINATION GENERAL: The patient is a well-developed elderly obese male, seen lying flat in the stretcher, in no acute distress. VITAL SIGNS: Blood pressure 122/73, pulse 79, respirations 18, temp 97.5, O2 sat 96% on room air. HEENT: Pupils are pinpoint. Extraocular muscles are intact. Oropharynx is clear. Oral mucosa is moist. NECK: There is no submandibular, cervical or supraclavicular adenopathy. Thyroid is not enlarged. No thyroid nodules noted. PULMONARY: Lungs are clear to auscultation bilaterally. CARDIAC: Normal S1 and S2. Regular rate and rhythm. I do not appreciate any murmurs. There is no lower extremity edema. ABDOMEN: Bowel sounds are present. Abdomen is obese, soft, nontender and nondistended. MUSCULOSKELETAL: There is no cyanosis or clubbing of the digits. SKIN: Warm and dry. There are no rashes. NEUROLOGIC: Cranial nerves II through XII are grossly intact. Sensation is intact to light touch throughout. Strength is 5/5 and symmetric to both upper and lower extremities bilaterally. PSYCH: The patient is alert. He is oriented x3. Affect appears appropriate. DIAGNOSTIC STUDIES/LAB DATA: WBC 11.5, hemoglobin 12.9, hematocrit 39, platelets 254,000. INR 1.03. Sodium 133, potassium 4.2, chloride 97, CO2 of 28 , BUN 26, creatinine 1.21, glucose 321, calcium 8.9. Bilirubin 0.3, AST 17, ALT 16, alk phos 140, albumin 3.5. EKG reveals paced rhythm. ASSESSMENT AND PLAN: Mr. Zamorano is an 78-year-old male with a history of aortic stenosis, ikqvhyln-or-qfzweb mitral regurgitation, coronary artery disease who is status post recent TAVR, mitral valve clipping and single vessel stenting who continues to be significantly deconditioned following the hospitalization for these procedures and is now at [facility] for subacute rehab suffering from constipation, being aggressively treated, now with 3 bloody bowel movements on the day of admission. 1. Rectal bleeding. At this point, my suspicion is that the patient's rectal bleeding is related to severe constipation and likely attempts to have bowel movements over the last several days. The patient's hemoglobin is essentially at his baseline. He has had no further bleeding since the 3 episodes at [facility]. The patient will be admitted under observation status to monitor for any further rectal bleeding. A followup hemoglobin will be obtained at 0030 on 07/25 due to the fact that the patient is on aspirin and Plavix and cannot come off of these as he had a recent cardiac stent placed. A followup CBC will be obtained in the morning of 02/04/19 as well. If the H and H drops or if there are recurrent episodes of rectal bleeding, GI consultation should be requested. 2. Insulin dependent diabetes. The patient's insulin dose was decreased recently at [facility] due to the fact that his oral intake had been somewhat variable. His sugars got as low as to mid 100s yesterday; however, today they have been in the 200 to 300 range. I am going to change his insulin dosing to Novolin 70/30, 40 units subcutaneous with meals and we will monitor his blood sugars. We will hold his Victoza. 3. Obstructive sleep apnea. The patient does not utilize CPAP. We will monitor vitals intermittently. 4. Coronary artery disease. The patient is status post single vessel stenting. We will continue aspirin, Plavix and metoprolol. 5. Hyperlipidemia. Continue simvastatin. 6. DVT prophylaxis. According to the Adult Thrombosis Prophylaxis Risk Factor Assessment Guide, the patient has a total risk factor score of 4, making him high risk. As there has been rectal bleeding, I am going to hold off on chemical prophylaxis, but we will utilize SCDs. 7. Code status is full. TIME SPENT: Sixty-five minutes were spent admitting this patient. [id number]/[facility] #: [id number] DINORA
--- OUTSIDE RECORDS SUMMARY | 2019-02-04 01:27 | XMS REPORT | Continuity of Care Document ---
:1940 External Reference #:[id number] Author Name Aarti Jones Care Team Providers Name Role Phone Roque Arevalo MD Primary Care Physician Unavailable Payers Date Identification Numbers Payment Provider Subscriber Effective: 2019 Policy Number: [id number] Medicare Blue Ppo [place] PayID: [id number] [address] [address] [place] [address] Expires: 2019 Policy Number: [id number] Blue Shield Ppo [place] PayID: [id number] [address] [address] [place] [address] Expires: 2019 Policy Number: [id number] Medicare [place] PayID: [id number] [address] [place] [address] Effective: 2013 Policy Number: [id number] Medicare Blue Ppo [place] Expires: 2018 Group Number: [id number] [address] PayID: [id number] [place] [address] Problems Active Problems Provider Date Aortic valve disorder Rajni Inman M.D. Onset: 03/04/2016 Mitral valve disorder Rajni Inman M.D. Onset: 07/11/2016 Mixed hyperlipidemia Rajni Inman M.D. Onset: 02/04/2017 Chronic diastolic heart failure Rajni Inman M.D. Onset: 05/06/2017 Obstructive sleep apnea syndrome Luz Paz DNP, RN, [facility] Onset: Hypersomnia Luz Paz DNP, RN, [facility] Onset: 08/22/2017 Hypoxemia Luz Paz DNP, RN, [facility] Onset: 08/22/2017 Coronary artery atheroma Rajni Inman M.D. Onset: 01/13/2018 Heart valve replacement Rajni Inman M.D. Onset: 12/11/2018 Family History Date Family Member(s) Observation Comments General Coronary Artery Disease (CAD) General Diabetes Type II Father Diabetes Type II Mother Diabetes Type II Siblings 5 3 brothers and 2 sisters Social History Type Date Description Comments Sex Unknown Marital Status Lives With Occupation Retired Tobacco Use Start: Unknown Never Smoked Cigarettes Smoking Status Reviewed: 01/28/19 Never Smoked Cigarettes ETOH Use Denies alcohol use Tobacco Use Start: Unknown Patient has never smoked Recreational Drug Use Denies Drug Use Exercise Type/Frequency Does not exercise Allergies, Adverse Reactions, Alerts Description No Known Drug Allergies Medications Active Medications SIG Qnty Indications Ordering Date Provider Ramipril 1 by mouth every 30caps I50.42 Analia Olmstead, 10/27/2018 2.5mg day [employer]FINER Capsules Oxygen Oxygen 2 L nc with 1units Rajni Inman, 05/15/2017 2L [facility] sleep Dennys Aspir-Low 1 by mouth every Roque Arevalo MD 01/10/2016 81mg day Tablets Metoprolol Succinate 1/2 tablet by mouth Roque [...] Analia Olmstead, 10/27/2018 - 2.5mg Capsules day [employer] 10/27/2018 Ramipril 1 by mouth every 90caps [...] Inj, Regadenoson, 0.1 MG Etienne Norris, DO [facility] 02/21/2016 Injection Technetium TC 99M Etienne Norris, DO [facility] 02/21/2016 Tetrofosmin, Per Unit Dose Up To 40 Millicuries Injection Technetium TC 99M Rajni Inman M.D. 02/20/2016 Tetrofosmin, Per Unit Dose Up To 40 Millicuries Injection Vital Signs Date Vital Result Comment 01/28/2019 11:38am Height 74 inches 6'2" Weight 262.00 lb Heart Rate 82 /min BP Systolic 118 mmHg BP Diastolic 68 mmHg Respiratory Rate 18 /min Body Temperature 98.6 F Pain Level 8 BMI (Body Mass Index) 33.6 kg/m2 12/11/2018 3:51pm Height 74 inches 6'2" Weight 251.50 lb with shoes Heart Rate 90 /min BP Systolic Sitting 96 mmHg Lue reg cuff BP Diastolic Sitting 56 mmHg Lue reg cuff Respiratory Rate 16 /min BMI (Body Mass Index) 32.3 kg/m2 Ejection Fraction 30-35% date 11/11/18 ECHO 10/27/2018 3:21pm Height 74 inches 6'2" Weight [...] Date Facility Test Result H/L Range Note Xray 12/21/2018 [facility] Chest PA & Lat 2 <pending> [address] [place] [address] [phone] Laboratory test 12/11/2018 [facility] B-Type <pending> finding [address] [place] [address] Peptide BNP [phone] Laboratory test 11/11/2018 [facility] Point of Care 393 mg/dL High 70-[address] [place] [address] [phone] Laboratory test 11/11/2018 [facility] Potassium Redraw 4.8 mmol/ L N 3.5-5.[address] [place] [address] [phone] Ast Redraw 32 U/L N 13-39 Laboratory test 11/11/2018 [facility] Point of Care > 444 High 70-100 [address] Glucose mg/[place] [address] [phone] Laboratory test 11/11/2018 [facility] Creatine 100 U/L N 10- 223 [address] Kinase([place]) [place] [address] [phone] Troponin-I (TnI) 0.04 ng/mL High <0.04 4 Myoglobin 56.0 ng/mL N 17.4-105.7 Comp Metabolic Panel 11/11/2018 [facility] Sodium 129 mmol/L Low 135-[address] [place] [address] [phone] Chloride 100 mmol/L Low 101-111 Co2 Carbon Dioxide 18 mmol/L Low 22-32 Calcium 9.1 mg/dL N 8.6-10.3 5 Albumin 4.0 g/dL N 3.2-5.2 6 Total Bilirubin 0.40 mg/dL N 0.2-1.0 7 Potassium TNP mmol/L 3.5-5.0 8 Anion Gap 11 mmol/L N 2-11 Glucose 422 mg/dL High 70-100 9 Blood Urea Nitrogen 22 mg/dL N 6-24 10 Creatinine 1.48 mg/dL High 0.67-1.17 11 BUN/Creatinine Ratio 14.9 N 8-20 Total Protein 7.9 g/dL N 6.4-8.9 12 Globulin 3.9 g/dL N 2-4 Albumin/Globulin Ratio 1.0 N 1-3 Alkaline Phosphatase 196 U/L High 34-104 13 Alt 64 U/L High 7-52 14 Ast TNP U/L 13-39 15 Egfr Non- 45.7 >60 Egfr 55.3 >60 16 Laboratory test 11/11/2018 [facility] Point of > 444 High 70- 100 [address] Care Glucose mg/[place] [address] [phone] Basic Metabolic 10/20/2018 [facility] Sodium 136 mmol/L N 135- [address] [place] [address] [phone] Potassium 4.9 mmol/L N 3.5-5.0 Chloride 103 mmol/L N 101-111 Co2 Carbon Dioxide 26 mmol/L N 22-32 Anion Gap 7 mmol/L N 2-11 Glucose 134 mg/dL High 70-100 Blood Urea Nitrogen 17 mg/dL N 6-24 Creatinine 1.28 mg/dL High 0.67-1.17 BUN/Creatinine Ratio 13.3 N 8-20 Calcium 9.6 mg/dL N 8.6-10.3 Egfr Non- 54.1 >60 Egfr 65.4 >60 18 Basic Metabolic Panel 10/13/2018 [facility] Sodium 136 mmol/L N 135-[address] [place] [address] [phone] Potassium 4.6 mmol/L N 3.5-5.0 Chloride 103 mmol/L N 101-111 Co2 Carbon Dioxide 28 mmol/L N 22-32 Anion Gap 5 mmol/L N 2-11 Glucose 107 mg/dL High 70-100 Blood Urea Nitrogen 14 mg/dL N 6-24 Creatinine 1.34 mg/dL High 0.67-1.17 BUN/Creatinine Ratio 10.4 N 8-20 Calcium 9.7 mg/dL N 8.6-10.3 Egfr Non- 51.3 >60 Egfr 62.1 >60 19 Laboratory test 10/03/2018 [facility] Point of 317 mg/dL High 70-100 [address] [place] [address] [phone] CBC Auto Diff 10/03/2018 [facility] White Blood 8.9 N 3.5- 10.[address] Count 10^3/[place] [address] [phone] Red Blood Count 4.27 10^6/uL N 4.18-5.48 [...] Blood Cells % 0 Laboratory test 10/03/2018 [facility] Lactic Acid 1.2 mmol/L N 0.5-2.0 [address] [place] [address] [phone] B-Type Natriuretic Peptide BNP 60 pg/mL <=100 Comp Metabolic Panel 10/03/2018 [facility] Sodium 129 mmol/L Low 135-[address] [place] [address] [phone] Potassium 4.7 mmol/L N 3.5-5.0 Chloride 93 [...] Egfr Non- 29.1 >60 Egfr 35.2 >60 22 Laboratory test 10/03/2018 [facility] Magnesium 2.1 mg/dL N 1.9-2.[address] [place] [address] [phone] Troponin-I (TnI) 0.04 ng/mL High <0.04 23 TSH (Thyroid Stim Horm) 2.96 mcIU/mL N 0.34-5.60 Urinalysis Profile 10/03/2018 [facility] Urine Color Yellow [address] [place] [address] [phone] Urine Appearance Clear Urine Specific [place] 1.011 N 1.010-1.030 Urine pH 5.0 N 5-9 Urine Urobilinogen Negative Negative Urine Ketones Trace Abnormal Negative Urine Protein Negative Negative Urine Leukocytes Negative Negative Urine Blood Negative Negative Urine Nitrite Negative Negative Urine Bilirubin Negative Negative Urine Glucose 2+(150 mg/dL) Abnormal Negative Lipid Panel - 09/25/2018 [facility] Creatine <pending> [facility] [address] Kinase([place]) [place] [address] [phone] Laboratory 04/07/2018 [facility] Fructosamine 441 mcmol/L Abnormal 200 - 24 test finding [address] [place] [address] [phone] Lipid Panel - 01/13/2018 [facility] Creatine 48 U/L N 10-[address] Kinase(CK) 3 [place] [address] [phone] Comp 01/13/2018 [facility] Sodium 132 mmol/L Low 135-[address] [place] [address] [phone] Potassium 4.6 mmol/L N 3.5-5.0 Chloride 94 [...] Egfr Non- 45.1 >60 Egfr 54.6 >60 25 Order 01/13/2018 [facility] Pulse Oximetry <pending> [address] [place] [address] [phone] Lipid Profile 01/13/2018 [facility] Triglycerides 198 mg/dL 26 (Trig/Chol/HDL) [address] [place] [address] [phone] Cholesterol 144 mg/dL 27 HDL Cholesterol 36.3 mg/dL 28 LDL Cholesterol 68 mg/dL 29 CBC Auto Diff 12/17/2017 [facility] White Blood 9.8 10^3/uL N 3.5-10.[address] [place] [address] [phone] Red Blood Count 4.08 10^6/uL N 4.00-5.40 [...] Cells % 0 Comp Metabolic Panel 12/17/2017 [facility] Sodium 128 mmol/L Low 139-145 [address] [place] [address] [phone] Potassium 4.6 mmol/L N 3.5-5.0 Chloride 89 [...] Egfr Non- 47.3 >60 Egfr 60.9 >60 30 Inr/Protime 12/17/2017 [facility] Inr 0.98 N 0.77-1.02 [address] [place] [address] [phone] Laboratory test 11/06/2017 [facility] B-Type 134 High [address] Natriuretic pg/[place] [address] Peptide BNP [phone] Basic Metabolic 11/06/2017 [facility] Sodium 132 Low 139-[address] mmol/[place] [address] [phone] Chloride 94 mmol/L Low 101-111 Co2 Carbon Dioxide 30 mmol/L N 22-32 Glucose 349 mg/dL High 70-100 Blood Urea Nitrogen 26 mg/dL High 6-24 Creatinine 1.60 mg/dL High 0.67-1.17 BUN/Creatinine Ratio 16.3 N 8-20 Calcium 10.0 mg/dL N 8.6-10.3 Egfr Non- 41.9 >60 Egfr 53.9 >60 32 Potassium 5.1 mmol/L High 3.5-5.0 Anion Gap 8 mmol/L N 2-11 Laboratory test 11/06/2017 [facility] Magnesium 2.0 mg/dL N 1.9-2.[address] [place] [address] [phone] Wound 09/25/2017 [facility] Wound/Misc SEE RESULT 33 Culture/Sensi [address] [address] Stain [phone] Laboratory test 08/30/2017 [facility] B-Type 317 pg/mL High [address] [place] [address] Peptide BNP [phone] Basic Metabolic 08/30/2017 [facility] Sodium 131 mmol/L Low 133-[address] [place] [address] [phone] Potassium 4.8 mmol/L N 3.5-5.0 Chloride 98 mmol/L Low 101-111 Co2 Carbon Dioxide 26 mmol/L N 22-32 Anion Gap 7 mmol/L N 2-11 Glucose 149 mg/dL High 70-100 Blood Urea Nitrogen 35 mg/dL High 6-24 Creatinine 1.94 mg/dL High 0.67-1.17 BUN/Creatinine Ratio 18.0 N 8-20 Calcium 9.4 mg/dL N 8.6-10.3 Egfr Non- 33.5 >60 Egfr 43.1 >60 35 Basic Metabolic Panel 08/26/2017 [facility] Sodium 133 mmol/L N 133-[address] [place] [address] [phone] Chloride 98 mmol/L Low 101-111 Co2 Carbon Dioxide 26 mmol/L N 22-32 Glucose 89 mg/dL N 70-100 Blood Urea Nitrogen 46 mg/dL High 6-24 Creatinine 2.21 mg/dL High 0.67-1.17 BUN/Creatinine Ratio 20.8 High 8-20 Calcium 9.6 mg/dL N 8.6-10.3 Egfr Non- 28.9 >60 Egfr 37.1 >60 36 Potassium 5.2 mmol/L High 3.5-5.0 Anion Gap 9 mmol/L N 2-11 Wound 08/19/2017 [facility] Wound/Misc SEE RESULT 37 Culture/Sensi [address] [place] [address] Stain [phone] Wound 06/12/2017 [facility] Wound/Misc SEE RESULT 38, 39 Culture/Sensi [address] [place] [address] Stain [phone] Wound 05/15/2017 [facility] Wound/Misc SEE RESULT 40 Culture/Sensi [address] [address] Stain [phone] Laboratory test 02/08/2016 [facility] Point of Care 78 mg/dL N 74-1 [address] Glucose 06 [place], [place] [address] [phone] 1 Tool Procurement Coordinator: [id number] 2 Tool Procurement Coordinator: [id number] 3 Specimen hemolyzed. Result may not be valid. 4 Result TnIDx:0.04 Called to [id number] at: 18:55:13 by:[id number] Read back by: [id number] Troponin-I testing on Plasma Separator Tubes (PST) has a known false positive rate of 0.20-0.40%. All positive troponins reflex immediately to secondary confirmatory testing. Using the [employer] DxI 800 Access Immunoassay systems, the 99th percentile upper reference limit was demonstrated to be < 0.03 ng/mL. 5 Specimen hemolyzed. Result may not be valid. 6 Specimen hemolyzed. Result may not be valid. 7 Specimen hemolyzed. Result may not be valid. 8 Specimen Hemolyzed. Result may not be valid. Unable to report test result due to hemolysis. 9 Specimen hemolyzed. Result may not be valid. 10 Specimen hemolyzed. Result may not be valid. 11 Specimen hemolyzed. Result may not be valid. 12 Specimen hemolyzed. Result may not be valid. 13 Specimen hemolyzed. Result may not be valid. 14 Specimen hemolyzed. Result may not be valid. 15 Unable to report test result due to hemolysis. 16 Because ethnic data is not always [...] 5 Kidney failure <15 (or dialysis) 17 Tool Procurement Coordinator: [id number] 18 Because ethnic data is not always [...] 5 Kidney failure <15 (or dialysis) 20 Tool Procurement Coordinator: [id number] 21 [facility] Severe Sepsis and Septic Shock Management Bundle Measure requires all lactic acids initially measuring >2.0 mmol/L be repeated. 22 Because ethnic data is not always readily [...] 15-29 5 Kidney failure <15 (or dialysis) 23 Result TnIDx:0.04 Called to [id number] at: 03:52:53 by:[id number] Read back by: [id number] Troponin-I testing on Plasma Separator Tubes (PST) has a known false positive rate of 0.20-0.40%. All positive troponins reflex immediate secondary confirmatory testing. 24 Test Performed by: [address] [id number] 25 Because ethnic data is not always readily [...] 15-29 5 Kidney failure <15 (or dialysis) 26 Desirable: <150 Borderline High: 150-199 High: 200-499 Very High: >500 27 Desirable: <200 Borderline High: 200-239 High: >239 28 Low: <40 Desirable: 40-60 High: >60 29 Desirable: <100 Near Optimal: 100-129 Borderline High: 130-159 High: 160-189 Very High: >189 30 Because ethnic data is not always readily [...] 15-29 5 Kidney failure <15 (or dialysis) 31 >100 to <200 pg/mL: likely compensated congestive heart failure (CHF) 200 to 400 pg/mL: likely moderate CHF >400 pg/mL: likely moderate to severe CHF 32 Because ethnic data is not always readily [...] 15-29 5 Kidney failure <15 (or dialysis) 33 SEE RESULT BELOW Name: JULIA WALTER : [address]: Jose Sanchez MD Acct: [id number] Unit: [id number] AGE: 77 Location: WOUND Re09/25/17 SEX: M Status: REG REF SPEC: [id number] JOHN: 09/25/17-16[address] [facility] [address]: Jose Sanchez MD REQ: [id number] RECD: 09/25/17 STATUS: ANGEL HILL DR: Roque [...] CONTINUED ON NEXT PAGE DEPARTMENT OF PATHOLOGY, [address] [place] [address] Leo Felton M.D. Director [facility] # [id number] Patient: JULIA WALTER [id number] (Continued) Specimen: [id number] Collected: 09/25/17 Received: 09/25/17 (Continued) Procedure Result Reported Site Wound/Misc Culture Final (continued) 09/28/17- 848 1. MRSA (continued) M.I.C. RX --------- ------ Oxacillin >=4 R * Quinupristin/Dalfopristin <=0.25 S Rifampin <=0.5 S Tetracycline >=16 R Trimethoprim/Sulfamethoxazole <=10 S Vancomycin 1 S Imipenem-Deduced R * Ampicillin/Sulbactam-Deduced R Cefazolin-Deduced R * These antibiotics are not available in the [facility] Formulary Contact the Microbiology Department for any additional antibiotic reporting. * ML - Main Lab . END OF REPORT DEPARTMENT OF PATHOLOGY, [address] [place] [address] Leo Felton M.D. Director [facility] # [id number] 34 >100 to <200 pg/mL: likely compensated congestive heart failure (CHF) 200 to 400 pg/mL: likely moderate CHF >400 pg/mL: likely moderate to severe CHF 35 Because ethnic data is not always readily [...] 15-29 5 Kidney failure <15 (or dialysis) 36 Because ethnic data is not always readily [...] 15-29 5 Kidney failure <15 (or dialysis) 37 SEE RESULT BELOW Name: JULIA WALTER : [address]: Jose Sanchez MD Acct: [id number] Unit: [id number] AGE: 77 Location: WOUND Re08/19/17 SEX: M Status: REG REF SPEC: [id number] JOHN: 08/19/17 [facility] [address]: Jose Sanchez MD REQ: [id number] RECD: 08/19/17 STATUS: ANGEL HILL DR: Roque [...] performed at Main Lab DEPARTMENT OF PATHOLOGY, [address] [place] [address] Leo Felton M.D. Director [facility] # [id number] Patient: YUNIOR WALTERVICKY [id number] (Continued) Specimen: [id number] Collected: 08/19/17 Received: 08/19/17 (Continued) Procedure Result Reported Site Wound/Misc Culture Final (continued) 08/21/171438 1. MRSA (continued) M.I.C. RX --------- ------ Cefazolin-Deduced R * These antibiotics are not available in the [facility] Formulary Contact the Microbiology Department for any additional antibiotic reporting. * [facility] - MAIN LAB ([facility]) . END OF REPORT * ML=Testing performed at Main Lab DEPARTMENT OF PATHOLOGY, [address] [place] [address] Leo Felton M.D. Director [facility] # [id number] 38 SOURCE: LEFT LOWER LEG 39 SEE RESULT BELOW Name: JULIA WALTER : [address]: Jose Sanchez MD Acct: [id number] Unit: [id number] AGE: 76 Location: WOUND Re06/12/17 SEX: M Status: REG REF SPEC: [id number] JOHN: 06/12/[address]: Jose Sanchez MD REQ: [id number] RECD: 06/12/17 STATUS: ANGEL HILL DR: Roque Arevalo MD _ SOURCE: MISC SOURC SPDESC:LEFT LEG ORDERED: Culture Stain COMMENTS: SOURCE: LEFT LOWER LEG Procedure Result Reported Site Wound/Misc Gram Stain Final 06/13/17- 728 ML No Neutrophils Observed 1+ Epithelial Cells [...] performed at Main Lab DEPARTMENT OF PATHOLOGY, [address] [place] [address] Leo Felton M.D. Director [facility] # [id number] Patient: JULIA WALTER [id number] (Continued) Specimen: [id number] Collected: 06/12/17-161 Received: 06/12/17 (Continued) Procedure Result Reported Site [...] These antibiotics are not available in the [facility] Formulary Contact the Microbiology Department for any additional antibiotic reporting. * ML - MAIN LAB ([facility]) . END OF REPORT * ML=Testing performed at Main Lab DEPARTMENT OF PATHOLOGY, [address] [place] [address] Leo Felton M.D. Director [facility] # [id number] 40 SEE RESULT BELOW Name: JULIA WALTER : [address]: Jose Sanchez MD Acct: [id number] Unit: [id number] AGE: 76 Location: WOUND Re05/15/17 SEX: M Status: REG REF SPEC: [id number] JOHN: 05/15/17-999 [facility] DR: Jose Sanchez MD REQ: [id number] RECD: 05/15/17-1247 STATUS: ANGEL HILL DR: Roque Arevalo MD [...] performed at Main Lab DEPARTMENT OF PATHOLOGY, [address] [place] [address] Leo Felton M.D. Director [facility] # [id number] Patient: JULIA WALTER [id number] (Continued) Specimen: [id number] Collected: 05/15/17-999 Received: 05/15/17-1246 (Continued) Procedure Result [...] These antibiotics are not available in the [facility] Formulary Contact the Microbiology Department for any additional antibiotic reporting. * ML - MAIN LAB ([facility]) . END OF REPORT * ML=Testing performed at Main Lab DEPARTMENT OF PATHOLOGY, [address] [place] [address] Leo Felton M.D. Director [facility] # [id number] 41 Tool Procurement Coordinator: [id number] MARGY MILLER Procedures Date Code Description Status 01/28/2019 15935 Inject/Drain Joint/Bursa Major W/O US Completed 01/05/2019 54203 ECHO Transthoracic, Real-Time 2D With Doppler And Color Completed Flow 01/05/2019 96302 ECHO Transthoracic, Real-Time 2D With Doppler And Color Completed Flow 01/05/2019 93965 Pace Maker Eval W/Iterative Adjustment Multiple Lead Completed Pacemaker 01/05/2019 30834 Pace Maker Eval W/Iterative Adjustment Multiple Lead Completed Pacemaker 12/11/2018 32110 Pace Maker Eval W/Iterative Adjustment Multiple Lead Completed Pacemaker 12/11/2018 23462 Pace Maker Eval W/Iterative Adjustment Multiple Lead Completed Pacemaker 12/11/2018 16501 Interrogation Implant Cardiovasc Monitor System Incl Completed Analysis Int 12/11/2018 44022 Interrogation Implant Cardiovasc Monitor System Incl Completed Analysis Int 11/11/2018 03085 Echocardiogram, Limited Study Completed 11/10/2018 53376 EKG, Interpretation Only Completed 10/29/2018 03418 Removal Devitalization Tissue Wound Less Than Equal 20 Completed Square CM 10/07/2018 15344 ECHO Transthorasic Realtime 2D W Doppler & Color Flow Hosp Completed 10/05/2018 31278 Nerve Conduction 09-10 Studies Completed 10/05/2018 07870 Needle Electromyography Each Extremity W/Related Completed Paraspinal Areas 09/25/2018 77926 EKG Tracing & Interpretation Completed 06/04/2018 59583 Removal Devitalization Tissue Wound Less Than Equal 20 Completed Square CM 11/06/2017 06262 Removal Devitalization Tissue Wound Less Than Equal 20 Completed Square CM 10/21/2017 55634 Removal Devitalization Tissue Wound Less Than Equal 20 Completed Square 10/16/2017 52526 Removal Devitalization Tissue Wound Less Than Equal 20 Completed Square 10/09/2017 24405 Removal Devitalization Tissue Wound Less Than Equal 20 Completed Square 10/02/2017 28533 Removal Devitalization Tissue Wound Less Than Equal 20 Completed Square 09/25/2017 91513 Removal Devitalization Tissue Wound Less Than Equal 20 Completed Square 09/17/2017 46968 Echocardiography, Transesophageal, Real Time W/Image 2D Completed W/W/O M-M 09/17/2017 04076 Pulse Wave/Continuous-Interp.RPT Completed 09/17/2017 15937 Color Flow Doppler/Interp & Reprt Completed 09/17/2017 89158 Moderate Sedation Services; Same Phys Intl 15 Mins; PT >=5 Completed Years 09/16/2017 78151 Removal Devitalization Tissue Wound Less Than Equal 20 Completed Square 09/09/2017 30434 Removal Devitalization Tissue Wound Less Than Equal 20 Completed [facility] 09/02/2017 04628 Removal Devitalization Tissue Wound Less Than Equal 20 Completed [facility] 09/02/2017 39408 EKG Tracing & Interpretation Completed 08/26/2017 04793 Removal Devitalization Tissue Wound Less Than Equal 20 Completed [facility] 08/19/2017 96114 Removal Devitalization Tissue Wound Less Than Equal 20 Completed [facility] 08/17/2017 00801 ECHO Transthorasic Realtime 2D W Doppler & Color Flow Hosp Completed 08/16/2017 00542 EKG, Interpretation Only Completed 07/17/2017 45577 Removal Devitalization Tissue Wound Less Than Equal 20 Completed [facility] 06/26/2017 11024 Removal Devitalization Tissue Wound Less Than Equal 20 Completed [facility] 06/19/2017 57801 Removal Devitalization Tissue Wound Less Than Equal 20 Completed [facility] 06/18/2017 87414 Sleep Study Unattended,HRT Rate,Oxygen Sat,Resp Completed Effort/Airflow 06/12/2017 63063 Removal Devitalization Tissue Wound Less Than Equal 20 Completed [facility] 06/05/2017 79939 Removal Devitalization Tissue Wound Less Than Equal 20 Completed [facility] 05/22/2017 80290 Removal Devitalization Tissue Wound Less Than Equal 20 Completed [facility] 05/15/2017 78991 Removal Devitalization Tissue Wound Less Than Equal 20 Completed [facility] 05/08/2017 76579 Removal Devitalization Tissue Wound Less Than Equal 20 Completed [facility] 05/06/2017 24798 EKG Tracing & Interpretation Completed 05/01/2017 44606 Removal Devitalization Tissue Wound Less Than Equal 20 Completed [facility] 04/24/2017 38480 Removal Devitalization Tissue Wound Less Than Equal 20 Completed [facility] 04/17/2017 17451 Removal Devitalization Tissue Wound Less Than Equal 20 Completed [facility] 04/10/2017 83238 Removal Devitalization Tissue Wound Less Than Equal 20 Completed [facility] 04/01/2017 64576 Treadmill Interp/Report Only Completed 04/01/2017 85511 Stress Test Supervsn W/Out I/R Completed 03/31/2017 14513 ECHO Transthorasic Realtime 2D W Doppler & Color Flow Hosp Completed 02/04/2017 68446 EKG Tracing & Interpretation Completed 10/29/2016 20747 Removal Devitalization Tissue Wound Less Than Equal 20 Completed [facility] 02/21/2016 56681 Stress Test Completed 02/21/2016 76949 Myocardial Perfusion Imaging Tomographic (Spect) Multiple Completed Studies 02/08/2016 89270 Color Flow Doppler/Interp & Reprt Completed 02/08/2016 57273 Pulse Wave/Continuous-Interp.RPT Completed 02/08/2016 53719 Echocardiography, Transesophageal, Real Time W/Image 2D Completed W/W/O M-M 02/06/2016 62641 EKG Tracing & Interpretation Completed 01/09/2016 47381 Removal Devitalization Tissue Wound Less Than Equal 20 Completed [facility] 01/03/2016 71852 Stress Test Supervsn W/Out I/R Completed 01/03/2016 23321 Treadmill Interp/Report Only Completed 01/01/2016 42472 ECHO Transthorasic Realtime 2D W Doppler & Color Flow Hosp Completed 01/01/2016 94585 EKG, Interpretation Only Completed 12/31/2015 72161 EKG, Interpretation Only Completed 12/19/2015 54704 Removal Devitalization Tissue Wound Less Than Equal 20 Completed [facility] 12/12/2015 12301 Removal Devitalized Tissue Wound Greater Than 20 Square CM Completed 12/12/2015 61457 Removal Devitalization Tissue Wound Less Than Equal 20 Completed [facility] 11/28/2015 50358 Removal Devitalization Tissue Wound Less Than Equal 20 Completed Square CM 01/17/2014 95244 ECHO Transthoracic, Real-Time 2D With Doppler And Color Completed Flow Encounters Type Date Location Provider Dx Diagnosis Office Visit 12/11/2018 [facility] Rajni Inman, 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 Z95.0 Presence of cardiac pacemaker E11.8 Type 2 diabetes mellitus with unspecified complications N17.9 Acute kidney failure, unspecified I10 Essential (primary) hypertension Z98.61 Coronary angioplasty status T82.120A Displacement of cardiac electrode, initial encounter Office Visit 11/11/2018 3:51p [facility] Tone Ernandez, R53.1 Weakness M.DJose I44.7 Left bundle-branch block, unspecified R94.39 Abnormal result of other cardiovascular function study I25.10 Athscl heart disease of [place] coronary artery w/o ang pctrs I35.0 Nonrheumatic aortic (valve) stenosis I34.0 Nonrheumatic mitral (valve) insufficiency R94.31 Abnormal electrocardiogram [ECG] [EKG] R07.9 Chest pain, unspecified Office Visit 11/11/2018 [facility] Alexsandra I44.7 Left bundle-branch 9:30a Assoc,pc KAVIN Nolasco block, unspecified Hospitalists Office Visit 11/09/2018 [facility] Kristan Glover, R55 Syncope and 10:35a Assoc,pc DO collapse Hospitalists N17.9 Acute kidney failure, unspecified R74.0 Nonspec elev of levels of transamns & lactic acid dehydrgnse E11.9 Type 2 diabetes mellitus without complications E78.5 Hyperlipidemia, unspecified Office Visit 10/27/2018 3:30p [facility] Analia Olmstead, I25.10 Athscl heart Of [facility] S[employer] REFINER disease of [place] coronary artery w/o ang pctrs N17.9 Acute kidney failure, unspecified I50.42 Chronic combined systolic and diastolic hrt fail I34.0 Nonrheumatic mitral (valve) insufficiency Office Visit 10/13/2018 1:00p [facility] Analia Olmstead, N17.9 Acute kidney Of [facility] [place] failure, unspecified E11.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 with hyperglycemia 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 unspecified Office Visit 10/07/2018 3:00p [facility] Rajni Inman, I50.9 Heart failure, Of [facility] M.D. unspecified N18.9 Chronic kidney disease, unspecified I34.0 Nonrheumatic mitral (valve) insufficiency I35.0 Nonrheumatic aortic (valve) stenosis E78.5 Hyperlipidemia, unspecified Office Visit 10/03/2018 10:32a [facility] Heath Campo R53.1 Weakness Assoc, Hospitalists MD Gabrielle N17.9 Acute kidney failure, unspecified E11.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 with hyperglycemia R79.89 Other specified abnormal findings of blood chemistry E87.1 Hypo-osmolality and hyponatremia Office Visit 09/25/2018 2:30p [facility] Laura Kothari I25.10 Athscl heart Of [facility] Jimi, N.P. disease of [place] coronary artery w/o ang pctrs I50.42 Chronic combined systolic and diastolic hrt fail E11.8 Type 2 diabetes mellitus with unspecified complications G47.33 Obstructive sleep apnea (adult) (pediatric) I34.0 Nonrheumatic mitral (valve) insufficiency Office Visit 06/18/2018 2:30p Wound Care Jose Dunham E11.9 Type 2 diabetes [facility] [place]ennys Sanchez mellitus without complications I89.0 Lymphedema, not elsewhere classified Z86.14 Personal history of methicillin resis staph infection Office Visit 06/11/2018 2:00p Wound Care Jose Dunham L97.412 Non-prs chr [facility] Ghislaine Sanchez. ulcer of right heel and midft w fat layer expos E11.621 Type 2 diabetes mellitus with foot ulcer I89.0 Lymphedema, not elsewhere classified Z86.14 Personal history of methicillin resis staph infection Office Visit 05/21/2018 2:15p Wound Care Jose Dunham L97.412 Non-prs chr [facility] AT [facility] Ghislaine Sanchez. ulcer of right heel and midft w fat layer expos E11.621 Type 2 diabetes mellitus with foot ulcer I89.0 Lymphedema, not elsewhere classified Z86.14 Personal history of methicillin resis staph infection Office Visit 04/21/2018 12:15p [facility] Rajni Inman, I25.10 Athscl heart Broderick Noyola disease of [place] coronary artery w/o ang pctrs I50.42 Chronic combined systolic and diastolic hrt fail G47.33 Obstructive sleep apnea (adult) (pediatric) E11.8 Type 2 diabetes mellitus with unspecified complications I34.0 Nonrheumatic mitral (valve) insufficiency I35.0 Nonrheumatic aortic (valve) stenosis R60.0 Localized edema E78.2 Mixed hyperlipidemia Office Visit 01/23/2018 [facility] Luz G47.33 Obstructive sleep 11:00a Sleep Services Of ESTEFANY Paz RN, apnea (adult) [facility]- (pediatric) 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 R09.02 Hypoxemia Office Visit 01/13/2018 9:00a [facility] Rajni Inman, I25.10 [facility] Broderick Noyola disease of [place] coronary artery w/o ang pctrs I34.0 Nonrheumatic mitral (valve) insufficiency E11.8 Type 2 diabetes mellitus with unspecified complications R09.02 Hypoxemia E78.2 Mixed hyperlipidemia R60.0 Localized edema Office Visit 11/27/2017 3:00p Wound Care Jose Dunham L89.612 Pressure ulcer [facility] AT [facility] Dennys Sanchez of right heel, stage 2 E11.621 Type 2 diabetes mellitus with foot ulcer 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 classd elswhr 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 E11.9 Type 2 diabetes mellitus without complications Office Visit 11/06/2017 1:00p [facility] Rajni Inman, I34.0 Nonrheumatic mitral Cardiology Germania Noyola (valve) [facility] insufficiency I35.0 Nonrheumatic aortic (valve) stenosis I50.42 Chronic combined systolic and diastolic hrt fail R35.1 Nocturia I89.0 Lymphedema, not elsewhere classified Office Visit 10/21/2017 [facility] G47.33 Obstructive sleep 11:00a [facility] ESTEFANY Paz RN, apnea (adult) [facility] AMILCAR (pediatric) 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 Office Visit 09/23/2017 10:30a [facility] Rajni Inman, I34.0 Nonrheumatic mitral Cardiology Germania Noyola (valve) Syed insufficiency I35.0 Nonrheumatic aortic (valve) stenosis I50.42 Chronic combined systolic and diastolic hrt fail Office Visit 09/02/2017 10:00a [facility] Rajni Inman I35.0 Nonrheumatic Of Syed Noyola aortic (valve) stenosis R35.1 Nocturia I50.32 Chronic diastolic (congestive) heart failure E11.8 Type 2 diabetes mellitus with unspecified complications G47.33 Obstructive sleep apnea (adult) (pediatric) Office Visit 08/22/2017 [facility] Lu[facility] G47.33 Obstructive sleep 11:00a [facility] ESTEFANY Paz RN, apnea (adult) [facility] AMILCAR (pediatric) 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 R09.02 Hypoxemia Office Visit 08/19/2017 12:45p Wound Care Jose Nielson89.612 Pressure ulcer [facility] AT [facility] Dennys Sanchez of right heel, stage 2 E11.621 Type 2 diabetes mellitus with foot ulcer Z86.14 Personal history of methicillin resis staph infection I89.0 Lymphedema, not elsewhere classified Office Visit 08/15/2017 [facility] I50.33 Acute on chronic 3:27p Assoc,vincent Nolasco NP diastolic Hospitalists (congestive) heart failure 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 I10 Essential (primary) hypertension Office Visit 06/13/2017 11:00a [facility] Angeline Viera, R09.02 Hypoxemia Services Of [facility] R40.0 Somnolence R35.1 Nocturia E66.01 Morbid (severe) obesity due to excess calories Z68.34 Body mass index (BMI) 34.0-34.9, adult Office Visit 05/20/2017 1:00p [facility] MOUNA Tucker R09.02 Hypoxemia Syed I50.32 Chronic diastolic (congestive) heart failure Office Visit 05/06/2017 4:00p [facility] Rajni Inman I50.32 Chronic diastolic Cardiology Of Dennys (congestive) 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 breath I50.9 Heart failure, unspecified Office Visit 03/31/2017 3:34p [facility] Keyon Rodgers I50.9 Heart failure, Of Syed Durand M.D. 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 Office Visit 02/04/2017 3:15p [facility] Rajni Inman I35.0 Nonrheumatic Of Syed Noyola aortic (valve) stenosis Q21.1 Atrial septal defect I87.2 Venous insufficiency (chronic) (peripheral) E78.2 Mixed hyperlipidemia Office Visit 11/26/2016 10:40a Wound Care Jose Dunham S91.201A Unsp open [facility] AT [facility] Dennys Sanchez wound of right great toe w damage to nail, init E11.621 Type 2 diabetes mellitus with foot ulcer I89.0 Lymphedema, not elsewhere classified Office Visit 11/12/2016 4:48p Wound Javier Dunham S91.201A Unsp open Center AT [facility] Dennys Sanchez wound of right great toe w damage to nail, init E11.621 Type 2 diabetes mellitus with foot ulcer Office Visit 07/11/2016 2:15p [facility] Rajni Inman I35.0 Nonrheumatic Of Syed Noyola aortic (valve) stenosis I34.0 Nonrheumatic mitral (valve) insufficiency 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 Office Visit 03/04/2016 2:45p [facility] Rajni Inman, I35.0 Nonrheumatic Of Syed Noyola aortic (valve) stenosis E11.8 Type 2 diabetes mellitus with unspecified complications I89.0 Lymphedema, not elsewhere classified R94.39 Abnormal result of other cardiovascular function study Q21.1 Atrial septal defect Office Visit 02/06/2016 10:00a [facility] Rajni Inman, A41.9 Sepsis, Of Syed Noyola unspecified organism R94.39 Abnormal result of other cardiovascular function study Office Visit 02/01/2016 12:35p Wound Care Jose Rosario.Da Chronic venous Center AT [facility] Dennys Sanchez hypertension w ulcer of bilateral low extrm E11.622 Type 2 diabetes mellitus with other skin ulcer 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 L97.211 Non-prs chronic ulcer of right calf limited to brkdwn skin Office Visit 01/29/2016 1:57p [facility] Jerardo Rodgers L03.116 Cellulitis of For Ramon Merritt M.D. left lower limb Diseases E10.51 Type 1 diabetes w diabetic peripheral angiopath w/o gangrene E10.628 Type 1 diabetes mellitus with other skin complications I89.0 Lymphedema, not elsewhere classified Office Visit 01/25/2016 3:26p Wound Javier Griggs Chronic venous Center AT [facility] Dennys Sanchez hypertension w ulcer of bilateral low extrm E11.622 Type 2 diabetes mellitus with other skin ulcer 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 L97.211 Non-prs chronic ulcer of right calf limited to brkdwn skin Office Visit 01/03/2016 [facility] Rajni [facility]man, R94.39 Abnormal result of 10:55a Cardiology Of Dennys other cardiovascular [facility] function study R79.89 Other specified abnormal findings of blood chemistry I35.0 Nonrheumatic aortic (valve) stenosis Office Visit 12/05/2015 10:59a Wound Care Jose Griggs Chronic venous Center AT [facility] Dennys Sanchez hypertension w ulcer of bilateral low extrm E11.622 Type 2 diabetes mellitus with other skin ulcer 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 L97.211 Non-prs chronic ulcer of right calf limited to brkdwn skin Office Visit 11/28/2015 12:02p Wound Care Jose Arreola87.313 Chronic venous Center AT [facility] Ghislaine Sanchez. hypertension w ulcer of bilateral low extrm E11.622 Type 2 diabetes mellitus with other skin ulcer 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 L97.211 Non-prs chronic ulcer of right calf limited to brkdwn skin Plan of Treatment Future Appointment(s):04/01/2019 1:15 pm - Cas Khalil [facility]03/22/2019 1:50 pm - Rajni Inman M.D. at [facility]01/28/2019 - Cas Khalil, MDM25.562 Pain in left kneeNew Therapy:Physical TherapyFollow up:Follow up: 2 months
[2019-02-04 05:59] LABS: Hematocrit 37 % (42-52); Hemoglobin 12.3 g/dL (14.0-18.0); Mean Corpuscular HGB Conc 33 g/dL (31-36); Mean Corpuscular Hemoglobin 29 pg (27-31); Mean Corpuscular Volume 88 fL (80-94); Platelet Count 253 10^3/uL (150-450); Red Blood Count 4.24 10^6 /uL (4.18-5.48); Red Cell Distribution Width 15 % (10-15); White Blood Count 11.1 10^3/uL (3.5-10.8)
[2019-02-04 06:26] LABS: BUN/Creatinine Ratio 22.2 (8-20); Calcium 9.1 mg/dL (8.6-10.3); EGFR African American 79.6 (>60); EGFR Non-African American 65.8 (>60); Potassium 3.8 mmol/L (3.5-5.0)
[2019-02-04] MEDS ORDERED: Insulin ISOPH/REG 70/30 (*) 1 UNITS UNIT SUBCUT SCH (07:30)
[2019-02-04] MEDS ORDERED: Aspirin EC TAB* 81 MG TAB.EC PO SCH (09:00)
[2019-02-04] MEDS ORDERED: Clopidogrel TAB* 75 MG PO SCH (09:00)
[2019-02-04] MEDS ORDERED: Albuterol HFA INHALER* 8 gm MDI INH SCH (09:00)
[2019-02-04] MEDS: Insulin ISOPH/REG 70/30 (*) 1 UNITS UNIT SUBCUT SCH ×3 (10:08→17:50)
--- NOTE | 2019-02-04 10:10 | PN ---
Subjective - Subjective Reason for Note: Progress Note History: Kolton Zamorano is a primary care patient of [facility] who has a complex medical history. He presents with maroon stool, constipation and a history of a 4. 4 x 3.9 x 3.3 cm villous adenoma of the recto-cecal junction. He recently had a TAVR/mitral valve clipping and has been in [facility] receiving rehab. He had a steroid injection in his left knee recently resulting in hyperglycemia. He has been doing well with rehabilitation. Today he has no nausea, vomiting, abdominal pain. He has has had no chest pain or syncope. He has no other pain. He has hyperglycemia Active Problems: Active Problems Constipation (Acute) K59.00 Decubitus ulcer of buttock, stage 2 (Acute) L89.302 Lower GI bleed (Acute) K92.2 Uncontrolled type 2 diabetes circulatory disorder erectile dysfunction (Acute) E11.59, E11.65, N52.1 Villous adenoma of rectum (Acute) D37.5 BPH (benign prostatic hyperplasia) (Chronic) N40.0 Cardiac pacemaker (Chronic) Z95.0 Hypercholesteremia (Chronic) E78.0 Left knee pain (Chronic) M25.562 Obesities, morbid (Chronic) E66.01 Pulmonary nodule less than 6 cm determined by computed tomography of lung ( Chronic) R91.1 Spinal stenosis at L4-L5 level (Chronic) M48.061 Status post implantation of mitral valve leaflet clip (Chronic) Z98.890, Z95.818 Status post transcatheter aortic valve replacement (TAVR) using bioprosthesis ( Chronic) Z95.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, uncontrolled (Chronic ) E11.49, E11.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, uncontrolled, with renal complications (Chronic) E11.29, E11.65 Weakness of both legs (Chronic) R29.898 Current Medications: Current Medications Acetaminophen (Tylenol Tab*) 650 mg PO Q4H PRN PRN Reason: PAIN Albuterol (Ventolin Hfa Inhaler*) 2 puff INH Q6H PRN PRN Reason: SOB/WHEEZING Aspirin (Aspirin Ec Tab*) 81 mg PO DAILY MADHURI Atorvastatin Calcium (Lipitor*) 20 mg PO BEDTIME MADHURI Clopidogrel Bisulfate (Plavix Tab*) 75 mg PO DAILY MADHURI Dextrose (Dextrose 50% Vial 50 Ml*) 25 ml IV PUSH .FOR FS < 60 - SS PRN PRN Reason: FS < 60 Furosemide (Lasix Tab*) 40 mg PO BID MADHURI Insulin Human Isoph/Insulin Regular (Humulin 70/30 (*)) 40 units SUBCUT AC MADUHRI Insulin Human Lispro (Humalog*) 0 units SUBCUT ACHS MADHURI; Protocol Metoprolol Succinate (Toprol Xl Tab*) 25 mg PO DAILY [facility] Ondansetron HCl (Zofran Inj*) 4 mg IV Q6H PRN PRN Reason: NAUSEA Ramipril (Altace Cap*) 5 mg PO DAILY [facility] Home Medications: Home Medications Medication Instructions Recorded Confirmed Type Aspirin EC TAB* [Ecotrin EC Low 81 mg PO DAILY 02/07/16 02/03/19 History Dose 81 MG*] Simvastatin [Zocor 40 MG (NF)] 40 mg PO BEDTIME 02/07/16 02/03/19 History Insulin ISOPH/REG 70/30 (*) 30 units SUBCUT AC MDD 200 units 11/09/18 02/03/19 History [HumuLIN 70/30 (*)] Metoprolol Succinate XL TAB* 25 mg PO DAILY 11/09/18 02/03/19 History [Toprol XL TAB*] Albuterol HFA INHALER* [Ventolin 2 puff INH Q6HR PRN 11/11/18 02/03/19 History HFA Inhaler*] Furosemide TAB* [Lasix TAB*] 40 mg PO BID 11/11/18 02/03/19 History Liraglutide (NF) [Victoza (NF)] 1.8 mg SUBCUT DAILY 11/11/18 02/03/19 History Ramipril CAP* [Altace CAP*] 5 mg PO DAILY 11/11/18 02/03/19 History Clopidogrel Bisulfate [Plavix] 75 mg PO DAILY 02/03/19 02/03/19 History Ferrous Sulfate 325 mg PO DAILY 02/03/19 02/03/19 History Melatonin [Meladox] 3 mg PO BEDTIME 02/03/19 02/03/19 History Allergies: Allergies Allergy/AdvReac Type Severity Reaction Status Date / Time sulfamethoxazole Allergy Intermediate See Comment Verified 11/11/18 15:05 [From Bactrim] trimethoprim [From Bactrim] Allergy Intermediate See Comment Verified 11/11/18 15:05 Objective - Vital Signs Vital Signs: Vital Signs 02/03/19 02/03/19 02/03/19 20:02 20:09 21:00 Temperature 97.5 F Pulse Rate 79 80 Respiratory 18 18 15 Rate Blood Pressure 122/73 (mmHg) O2 Sat by Pulse 96 96 Oximetry 02/03/19 02/03/19 02/03/19 21:38 22:00 22:08 Temperature Pulse Rate 74 74 73 Respiratory 15 8 13 Rate Blood Pressure 111/65 113/73 (mmHg) O2 Sat by Pulse 95 98 94 Oximetry 02/03/19 02/03/19 02/03/19 22:38 22:46 23:00 Temperature Pulse Rate 72 74 Respiratory 16 17 18 Rate Blood Pressure 128/83 128/83 (mmHg) O2 Sat by Pulse 96 96 Oximetry 02/03/19 02/04/19 02/04/19 23:08 00:21 00:30 Temperature 97.9 F 98.1 F Pulse Rate 75 76 74 Respiratory 18 18 24 Rate Blood Pressure 93/62 104/66 100/59 (mmHg) O2 Sat by Pulse 96 95 99 Oximetry 02/04/19 02/04/19 02/04/19 03:14 05:05 07:57 Temperature 97.3 F 98.1 F Pulse Rate 78 78 Respiratory 16 16 16 Rate Blood Pressure 104/54 115/60 (mmHg) O2 Sat by Pulse 97 100 Oximetry - Intake and Output Intake and Output: Intake & Output 02/01/19 02/02/19 02/03/19 02/04/19 11:59 11:59 11:59 11:59 Intake Total 720 Balance 720 Weight 236 lb Intake: Oral 720 Other: Estimated Void Small Date of Last Bowel 02/22/19 Movement # Bowel Movements 2 Estimated Stool Amount Small # Voids 3 ADLs: Meal Record Start: 02/03/19 23: 53 Freq: DAILY@0900,1400,1800 Status: Active Protocol: Created 02/03/19 23:53 System (Rec: 02/03/19 23:53 System [id number]) Document 02/04/19 09:00 [id number] (Rec: 02/04/19 09:56 [id number] MED-C09) Intake and Output Start: 02/03/19 20: 08 Freq: Status: Active Protocol: Created 02/03/19 20:08 System (Rec: 02/03/19 20:08 System [id number]) Intake and Output Start: 02/03/19 23: 53 Freq: DAILY@0600,1400,2200 Status: Active Protocol: Created 02/03/19 23:53 System (Rec: 02/03/19 23:53 System [id number]) Document 02/04/19 05:45 [id number] (Rec: 02/04/19 05:48 [id number] MED-C14) - Physical Exam General Physical Exam Comment: Right buttock ~ 1 cm stage 2 decubitus. left calf has a protective adhesive dressing. He is in no acute distress. He requires 2 assists to sit him forward. Foot examination shows no ulcers, infections or callouses General: No Cyanosis, No Anemia, No Jaundice, No Lymphadenopathy, No Clubbing Endocrine: Yes Central Obesity Lungs and Chest: Yes: Chest Expansion Full, Chest Expansion Symetrica, Percussion Note Resonant, Vessicular Breath Sounds. No: Crackles, Wheezes Heart Rate and Rhythm: Regular Additional Cardiovascular: Yes: Normal Heart Sounds. No: Heart Murmur, Pedal Edema Abdominal Exam: Yes: Soft, Bowel Sounds Present. No: Distention, Abdominal Mass , Hepatomegaly, Abdominal Tenderness - Extremities Cranial Nerves II-XII Intact: Yes Limbs: Normal Power, Normal Tone - Neuro Orientation: A/O x3 Speech: Normal Results - Results Lab Results: Laboratory Results - last 24 hr 02/03/19 02/03/19 02/03/19 20:30 20:30 20:30 WBC 11.5 H RBC 4.42 Hgb 12.9 L Hct 39 L MCV 88 MCH 29 MCHC 33 RDW 15 Plt Count 254 MPV 9.2 Neut % (Auto) 72.3 Lymph % (Auto) 16.4 [place] % (Auto) 7.9 Eos % (Auto) 3.0 Baso % (Auto) 0.4 Absolute Neuts (auto) 8.3 H Absolute Lymphs (auto) 1.9 Absolute Monos (auto) 0.9 H Absolute Eos (auto) 0.3 Absolute Basos (auto) 0.0 Absolute Nucleated RBC 0.0 Nucleated RBC % 0.0 INR (Anticoag Therapy) 1.03 APTT 30.1 Sodium 133 L Potassium 4.2 Chloride 97 L Carbon Dioxide 28 Anion Gap 8 BUN 26 H Creatinine 1.21 H Est GFR ( Amer) 69.8 Est GFR (Non-Af Amer) 57.7 BUN/Creatinine Ratio 21.5 H Glucose 321 H POC Glucose (mg/dL) Calcium 8.9 Total Bilirubin 0.30 AST 17 ALT 16 Alkaline Phosphatase 140 H Total Protein 7.2 Albumin 3.5 Globulin 3.7 Albumin/Globulin Ratio 0.9 L Blood Type Antibody Screen 02/03/19 02/04/19 02/04/19 20:30 00:26 01:01 WBC RBC Hgb 13.3 L Hct 40 L MCV MCH MCHC RDW Plt Count MPV Neut % (Auto) Lymph % (Auto) [place] % (Auto) Eos % (Auto) Baso % (Auto) Absolute Neuts (auto) Absolute Lymphs (auto) Absolute Monos (auto) Absolute Eos (auto) Absolute Basos (auto) Absolute Nucleated RBC Nucleated RBC % INR (Anticoag Therapy) APTT Sodium Potassium Chloride Carbon Dioxide Anion Gap BUN Creatinine Est GFR ( Amer) Est GFR (Non-Af Amer) BUN/Creatinine Ratio Glucose POC Glucose (mg/dL) 289 H Calcium Total Bilirubin AST ALT Alkaline Phosphatase Total Protein Albumin Globulin Albumin/Globulin Ratio Blood Type O Positive Antibody Screen Negative 02/04/19 02/04/19 02/04/19 05:32 05:32 07:17 WBC 11.1 H RBC 4.24 Hgb 12.3 L Hct 37 L MCV 88 MCH 29 MCHC 33 RDW 15 Plt Count 253 MPV 9.0 Neut % (Auto) Lymph % (Auto) [place] % (Auto) Eos % (Auto) Baso % (Auto) Absolute Neuts (auto) Absolute Lymphs (auto) Absolute Monos (auto) Absolute Eos (auto) Absolute Basos (auto) Absolute Nucleated RBC Nucleated RBC % INR (Anticoag Therapy) APTT Sodium 134 L Potassium 3.8 Chloride 99 L Carbon Dioxide 29 Anion Gap 6 BUN 24 Creatinine 1.08 Est GFR ( Amer) 79.6 Est GFR (Non-Af Amer) 65.8 BUN/Creatinine Ratio 22.2 H Glucose 339 H POC Glucose (mg/dL) 385 H Calcium 9.1 Total Bilirubin AST ALT Alkaline Phosphatase Total Protein Albumin Globulin Albumin/Globulin Ratio Blood Type Antibody Screen EKG Report: 76 paced rythm QTc 500 Assessment - Problem List Assessment: Patient Problems Constipation (Acute) Decubitus ulcer of buttock, stage 2 (Acute) Lower GI bleed (Acute) Uncontrolled type 2 diabetes circulatory disorder erectile dysfunction (Acute) Villous adenoma of rectum (Acute) BPH (benign prostatic hyperplasia) (Chronic) Cardiac pacemaker (Chronic) Hypercholesteremia (Chronic) Left knee pain (Chronic) Obesities, morbid (Chronic) Pulmonary nodule less than 6 cm determined by computed tomography of lung ( Chronic) Spinal stenosis at L4-L5 level (Chronic) Status post implantation of mitral valve leaflet clip (Chronic) Status post transcatheter aortic valve replacement (TAVR) using bioprosthesis ( Chronic) Type 2 diabetes mellitus with neurological manifestations, 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 He is known to have a large rectal mass and we were waiting until he was fit enough for surgery. This bleed may be related or unrelated to this mass. I note he takes clopidogrel. I have referred him to Dr. Wilcox for a GI consult. We may need to schedule surgery after his clopidogrel has been withdrawn for 1 week. 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 Decubitus ulcer of buttock, stage 2 (Acute) This is small and superficial Uncontrolled type 2 diabetes circulatory disorder erectile dysfunction (Acute) He had a steroid shot in his knee recently. 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
[2019-02-04] MEDS: Insulin LISPRO* 1 UNITS UNIT SUBCUT SCH ×5 (10:29→21:00)
[2019-02-04] MEDS: Ramipril CAP* 5 MG PO SCH (10:30)
[2019-02-04] MEDS: Metoprolol Succinate XL TAB* 25 MG PO SCH (10:30)
[2019-02-04] MEDS: Furosemide TAB* 40 MG PO SCH ×2 (10:30→21:09)
[2019-02-04] MEDS ORDERED: PEG 3000 GI LAVAGE* 1 GALLON PO ONE (16:05)
--- NOTE | 2019-02-04 18:24 | CONS ---
CC: Dr. Roque Arevalo * CONSULTATION REPORT: DATE OF CONSULT: 02/04/19 REQUESTING PHYSICIAN: Dr. Roque Arevalo. REASON FOR CONSULTATION: Rectal bleeding, known rectal mass. HISTORY OF PRESENT ILLNESS: This is a pleasant 78-year-old male who presented from [facility] with hematochezia. He has a history of severe aortic stenosis , congestive heart failure and underwent a recent TAVR with mitral valve clipping at [facility] on 11/20/18. In the midst of the hospitalization , he was found to have a 4.4 x 3.9 x 3.[address] within the rectum and some questionable mediastinal adenopathy. 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 No full colonoscopy has been completed to date. He had CEA testing in [place] that was 2.3. He states his stool has been maroon colored for the last day. History of present illness is supplemented by the daughter at bedside and also the . He denies any abdominal pain. No lightheadedness or dizziness. He has been on dual-antiplatelet therapy since the TAVR. He has new onset of constipation, which he has not had before. He normally moves his bowels daily, but for the last week and a half, he has had excessive straining with bowel movements. He has tried prune juice and was receiving MiraLAX twice a day. Shortly after, he developed this maroonish stool and that has continued. Denies any upper abdominal pain. No dysphagia or odynophagia. No nausea or emesis. No fever or chills. Denies any chest pain or dyspnea. He admits to a subjective weight loss of at least 20 pounds over the last year according to the and daughter. Remainder of the 14- point review of systems is grossly negative. PAST MEDICAL HISTORY: 1. Recent TAVR for aortic stenosis and mitral valve clipping for his moderate to severe MR. 2. Insulin-dependent diabetes. 3. Congestive heart failure. 4. Obstructive sleep apnea. 5. Diabetic neuropathy. 6. Hyperlipidemia. 7. Obesity. PAST SURGICAL HISTORY: 1. TAVR. 2. Mitral valve clipping. 3. 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 HOME MEDICATIONS: 1. Simvastatin. 2. Plavix. 3. Metoprolol. 4. Ferrous sulfate. 5. Aspirin. 6. Lasix. 7. Ventolin. 8. Victoza. 9. Senna. 10. Calamine skin protectant. 11. Glycerin. 12. MiraLAX. 13. Lactulose. 14. Melatonin. 15. Novolin. ALLERGIES: Include BACTRIM. FAMILY HISTORY: No family history of GI cancer or inflammatory bowel disease. SOCIAL HISTORY: He is , lives with his ; however, was at [facility]. 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 Nonsmoker. Does not drink alcohol. REVIEW OF SYSTEMS: Remainder of the 14-point review of systems is grossly negative except for as described in the HPI. PHYSICAL EXAM: Vital Signs: Blood pressure 109/59, pulse 54, respiratory rate 16, 95% on room air, T-max is 98.2. General: Alert, no acute distress. HEENT : Atraumatic, normocephalic. Pupils equal, round, reactive to light. Extraocular movements are intact. Conjunctivae are pink. Sclerae anicteric. Cardiovascular: Regular rate and rhythm. S1, S2. Respiratory: Clear to auscultation bilaterally. Abdomen: Obese, soft, nontender, and nondistended. Bowel sounds positive. Extremities: No ulcers, cyanosis, or clubbing. Rectal Exam: Digital rectal exam revealed loose tone with maroon colored stool. DIAGNOSTIC STUDIES/LAB DATA: Hemoglobin 12.3, WBC count 11.1, platelet count 253. INR is 1.03. Sodium 134, potassium 3.8, chloride is 99, BUN is 24, creatinine 1.08, glucose 339. Alkaline phosphatase 140. Outside infection data: He had a CT in [place] in November 2018 that showed a 4.4 x 3.9 x 3.3 cm mass in the rectum. He underwent a flexible sigmoidoscopy that showed roughly a 3 to 4 cm mass with biopsy showing TVA; however, is limited to the distal sigmoid. He had a CEA level of 2.3. ASSESSMENT AND PLAN: This is an 78-year-old male with known rectal mass, presenting with hematochezia. 1. Hematochezia. He has not had a full colonoscopy to clear the remainder of his colon. Surgery had been discussed, but no full colonoscopy has been completed to date. Biopsies did show tubulovillous adenoma at the time. Given that he still has evidence of ongoing bleeding, we will plan on colonoscopy on 02/05/19 to evaluate the potential source. If no source is identified, would plan on EGD the same day, given the slight darker colored stool. His vital signs are currently stable. Would recommend monitoring H and H every 6 hours. Keep 2 units of PRBCs on hold at all times. Aspirin is currently being continued by the primary team secondary to his recent cardiac intervention. 2. 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 Discussed that superficial biopsy cannot exclude cancer within this mass. We will plan on colonoscopy to evaluate the remainder of his colon. It appears as if this may not be endoscopically resectable; however, we will have a better idea after the colonoscopy and also hopefully we will able to clear the remainder of the colon. On the CT in [place], there was question of mediastinal node involvement versus reactivity. It may be useful to consider a PET scan via Oncology in the future, pending results. His CEA level was 2.3. Of note for his flexible sigmoidoscopy, he required 2 mg IV midazolam and 50 mcg IV fentanyl. 2. Recent TAVR per primary team. [id number]/[facility] #: [id number]
[2019-02-04] MEDS: Atorvastatin* 20 MG TAB PO SCH (21:09)
[2019-02-04] MEDS ORDERED: D5W 1/2 NS 1000 ML BAG* 1,000 ML IV SCH (23:00)
[2019-02-04] MEDS ORDERED: Dextrose 50% VIAL 50 ml ONE (23:21)
[2019-02-04] MEDS: Dextrose 50% VIAL 50 ml IV PUSH PRN (23:29)
--- NOTE | 2019-02-05 07:34 | PN ---
Subjective - Subjective Reason for Note: Progress Note History: I have reviewed Dr. Roque Angulo's thorough consultation note. Mr. Zamorano is tolerating the bowel preparation for his colonoscopy today. He had a hypoglycemic episode yesterday evening. He has a D5/0.5NS infusion running at present. He has passed no further blood in his stool. He has no abdominal pain, nausea or vomiting. He denies chest pain, dyspnea, cough or sputum. Active Problems: Active Problems Decubitus ulcer of buttock, stage 2 (Acute) L89.302 Lower GI bleed (Acute) K92.2 Type 2 diabetes mellitus with hyperglycemia (Acute) E11.65 Villous adenoma of rectum (Acute) D37.5 BPH (benign prostatic hyperplasia) (Chronic) N40.0 Cardiac pacemaker (Chronic) Z95.0 Hypercholesteremia (Chronic) E78.0 Left knee pain (Chronic) M25.562 Obesities, morbid (Chronic) E66.01 Pulmonary nodule less than 6 cm determined by computed tomography of lung ( Chronic) R91.1 Spinal stenosis at L4-L5 level (Chronic) M48.061 Status post implantation of mitral valve leaflet clip (Chronic) Z98.890, Z95.818 Status post transcatheter aortic valve replacement (TAVR) using bioprosthesis ( Chronic) Z95.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, uncontrolled (Chronic ) E11.49, E11.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, uncontrolled, with renal complications (Chronic) E11.29, E11.65 Weakness of both legs (Chronic) R29.898 Current Medications: Current Medications Acetaminophen (Tylenol Tab*) 650 mg PO Q4H PRN PRN Reason: PAIN Albuterol (Ventolin Hfa Inhaler*) 2 puff INH Q6H PRN PRN Reason: SOB/WHEEZING Aspirin (Aspirin Ec Tab*) [address] [facility] Last Admin: 02/04/19 10:29 Dose: 81 mg Atorvastatin Calcium (Lipitor*) [address] [facility] Last Admin: 02/04/19 21:09 Dose: 20 mg Dextrose (Dextrose 50% Vial 50 Ml*) 25 ml IV PUSH .FOR FS < 60 - SS PRN PRN Reason: FS < 60 Last Admin: 02/04/19 23:29 Dose: 25 ml Furosemide (Lasix Tab*) [address] [facility] Last Admin: 02/04/19 21:09 Dose: 40 mg Dextrose/Sodium Chloride (D5w 1/2 Ns 1000 Ml Bag*) 1,000 mls @ 75 mls/hr IV PER RATE [facility] Last Admin: 02/04/19 23:46 Dose: 75 mls/hr Insulin Human Isoph/Insulin Regular (Humulin 70/30 (*)) [address] [facility] Last Admin: 02/04/19 17:50 Dose: 40 unit Insulin Human Lispro (Humalog*) [address] [facility]; Protocol Last Admin: 02/04/19 21:00 Dose: Not Given Metoprolol Succinate (Toprol Xl Tab*) [address] [facility] Last Admin: 02/04/19 10:30 Dose: 25 mg Ondansetron HCl (Zofran Inj*) 4 mg IV Q6H PRN PRN Reason: NAUSEA Ramipril (Altace Cap*) [address] [facility] Last Admin: 02/04/19 10:30 Dose: 5 mg Home Medications: Home Medications Medication Instructions Recorded Confirmed Type Aspirin EC TAB* [Ecotrin EC Low 81 mg PO DAILY 02/07/16 02/03/19 History Dose 81 MG*] Simvastatin [Zocor 40 MG (NF)] 40 mg PO BEDTIME 02/07/16 02/03/19 History Insulin ISOPH/REG 70/30 (*) 30 units SUBCUT AC MDD 200 units 11/09/18 02/03/19 History [HumuLIN 70/30 (*)] Metoprolol Succinate XL TAB* 25 mg PO DAILY 11/09/18 02/03/19 History [Toprol XL TAB*] Albuterol HFA INHALER* [Ventolin 2 puff INH Q6HR PRN 11/11/18 02/03/19 History HFA Inhaler*] Furosemide TAB* [Lasix TAB*] 40 mg PO BID 11/11/18 02/03/19 History Liraglutide (NF) [Victoza (NF)] 1.8 mg SUBCUT DAILY 11/11/18 02/03/19 History Ramipril CAP* [Altace CAP*] 5 mg PO DAILY 11/11/18 02/03/19 History Clopidogrel Bisulfate [Plavix] 75 mg PO DAILY 02/03/19 02/03/19 History Ferrous Sulfate 325 mg PO DAILY 02/03/19 02/03/19 History Melatonin [Meladox] 3 mg PO BEDTIME 02/03/19 02/03/19 History Allergies: Allergies Allergy/AdvReac Type Severity Reaction Status Date / Time sulfamethoxazole Allergy Intermediate See Comment Verified 11/11/18 15:05 [From Bactrim] trimethoprim [From Bactrim] Allergy Intermediate See Comment Verified 11/11/18 15:05 Objective - Vital Signs Vital Signs: Vital Signs 02/04/19 02/04/19 02/04/19 07:57 08:00 12:01 Temperature 98.1 F 98.1 F Pulse Rate 78 84 Respiratory 16 16 18 Rate Blood Pressure 115/60 103/59 (mmHg) O2 Sat by Pulse 100 100 Oximetry 02/04/19 02/04/19 02/04/19 15:47 19:45 22:35 Temperature 98.2 F 97.9 F 97.9 F Pulse Rate 54 77 78 Respiratory 16 18 16 Rate Blood Pressure 109/50 132/58 115/53 (mmHg) O2 Sat by Pulse 95 98 99 Oximetry 02/05/19 03:19 Temperature 97.4 F Pulse Rate 63 Respiratory 16 Rate Blood Pressure 112/58 (mmHg) O2 Sat by Pulse 99 Oximetry - Intake and Output Intake and Output: Intake & Output 02/02/19 02/03/19 02/04/19 02/05/19 11:59 11:59 11:59 11:59 Intake Total 720 0 Output Total 225 Balance 720 -225 Weight 236 lb Intake: Oral 720 0 Output: Urine 225 Other: Estimated Void Small Large Date of Last Bowel 02/22/19 Movement # Bowel Movements 1 1 Estimated Stool Amount Small Large # Voids 3 1 ADLs: Meal Record Start: 02/03/19 23: 53 Freq: DAILY@0900,1400,1800 Status: Active Protocol: Created 02/03/19 23:53 System (Rec: 02/03/19 23:53 System [id number]) Document 02/04/19 09:00 [id number] (Rec: 02/04/19 09:56 [id number] MED-C09) Document 02/04/19 14:00 [id number] (Rec: 02/04/19 14:05 [id number] MED-C11) Document 02/04/19 18:51 [id number] (Rec: 02/04/19 18:51 [id number] MED-C09) Intake and Output Start: 02/03/19 20: 08 Freq: Status: Active Protocol: Created 02/03/19 20:08 System (Rec: 02/03/19 20:08 System [id number]) Intake and Output Start: 02/03/19 23: 53 Freq: DAILY@0600,1400,2200 Status: Active Protocol: Created 02/03/19 23:53 System (Rec: 02/03/19 23:53 System MED-C07) Document 02/04/19 05:45 [id number] (Rec: 02/04/19 05:48 [id number] MED-C14) Document 02/04/19 12:50 [id number] (Rec: 02/04/19 12:50 [id number] MED-C09) Document 02/04/19 14:00 [id number] (Rec: 02/04/19 14:06 [id number] MED-C11) Document 02/05/19 05:28 [id number] (Rec: 02/05/19 05:29 [id number] MED-C04) - Physical Exam General Physical Exam Comment: He is warm and well perfused General: No Cyanosis, No Anemia, No Jaundice, No Clubbing Endocrine: Yes Central Obesity Lungs and Chest: Yes: Chest Expansion Full, Chest Expansion Symetrica, Percussion Note Resonant, Vessicular Breath Sounds. No: Crackles, Wheezes Heart Rate and Rhythm: Regular JVP: Not Elevated Additional Cardiovascular: Yes: Normal Heart Sounds. No: Heart Murmur, Pedal Edema Abdominal Exam: Yes: Soft, Bowel Sounds Present. No: Distention, Abdominal Mass , Hepatomegaly, Abdominal Tenderness Results - Results Lab Results: Laboratory Results - last 24 hr 02/04/19 02/04/19 02/04/19 01:01 07:17 12:26 POC Glucose (mg/dL) 289 H 385 H 405 H* Glucose Meter Confirm 02/04/19 02/04/19 02/04/19 12:42 17:04 20:59 POC Glucose (mg/dL) 262 H 105 H Glucose Meter Confirm 392 H 02/04/19 02/05/19 02/05/19 23:16 00:33 02:34 POC Glucose (mg/dL) 41 L 94 171 H Glucose Meter Confirm Assessment - Problem List Assessment: Patient Problems Decubitus ulcer of buttock, stage 2 (Acute) Lower GI bleed (Acute) Type 2 diabetes mellitus with hyperglycemia (Acute) Villous adenoma of rectum (Acute) BPH (benign prostatic hyperplasia) (Chronic) Cardiac pacemaker (Chronic) Hypercholesteremia (Chronic) Left knee pain (Chronic) Obesities, morbid (Chronic) Pulmonary nodule less than 6 cm determined by computed tomography of lung ( Chronic) Spinal stenosis at L4-L5 level (Chronic) Status post implantation of mitral valve leaflet clip (Chronic) Status post transcatheter aortic valve replacement (TAVR) using bioprosthesis ( Chronic) Type 2 diabetes mellitus with neurological manifestations, 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 Wilcox questions that this may actually be an upper GI bleed as the stool was maroon in color and not bright red. Anyhow, we are proceeding with a colonoscopy today and perhaps an EGD. He is concerned to determine if the rest of the colon is clear of cancer. In addition, we may need to check a PET scan to rule out any spread , despite the low CEA and the benign findings on the sigmoidoscopic biopsy of the rectal mass in [place]. Decubitus ulcer of buttock, stage 2 (Acute) continue good nursing practices Uncontrolled type 2 diabetes (Acute) I note he has marked insulin resistance. I will adjust his insulin regimen in view of the hypoglycemia. 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 They agree with the management plan.
[2019-02-05] MEDS: Insulin ISOPH/REG 70/30 (*) 1 UNITS UNIT SUBCUT SCH (07:42)
[2019-02-05] MEDS: Ramipril CAP* 5 MG PO SCH (08:04)
[2019-02-05] MEDS: Metoprolol Succinate XL TAB* 25 MG PO SCH (08:04)
[2019-02-05] MEDS: Insulin LISPRO* 1 UNITS UNIT SUBCUT SCH ×4 (08:04→22:43)
[2019-02-05] MEDS: Furosemide TAB* 40 MG PO SCH ×2 (08:04→22:42)
[2019-02-05] MEDS: Aspirin 81 mg CHEW TAB* 81 MG TAB.CHEW PO SCH (08:11)
[2019-02-05 08:58] LABS: ABS Basophils 0.1 10^3/ul (0-0.2); ABS Eosinophils 0.3 10^3/ul (0-0.6); ABS Lymphocytes 2.1 10^3/ul (1.0-4.8); ABS Monocytes 0.9 10^3/ul (0-0.8); ABS Neutrophils 9.2 10^3/ul (1.5-7.7); Eosinophil % 2.5 %; Hematocrit 36 % (42-52); Lymphocyte % 16.8 %; Mean Corpuscular HGB Conc 34 g/dL (31-36); Mean Corpuscular Hemoglobin 30 pg (27-31); Mean Corpuscular Volume 88 fL (80-94); Red Blood Count 4.06 10^6 /uL (4.18-5.48); Red Cell Distribution Width 16 % (10-15); White Blood Count 12.6 10^3/uL (3.5-10.8)
[2019-02-05 09:03] LABS: Calcium 8.7 mg/dL (8.6-10.3); EGFR Non-African American 71.9 (>60); Potassium 3.6 mmol/L (3.5-5.0)
[2019-02-05 09:18] LABS: Mean Platelet Volume 9.1 fL (7.4-10.4); Platelet Count 241 10^3/uL (150-450)
[2019-02-05] MEDS: D5W 1/2 NS 1000 ML BAG* 1,000 ML IV SCH (12:32)
[2019-02-05] MEDS ORDERED: Insulin NPH(*) 1 UNITS UNIT SUBCUT SCH (14:00)
[2019-02-05] MEDS: Insulin NPH(*) 1 UNITS UNIT SUBCUT SCH ×2 (14:23→22:44)
[2019-02-05] MEDS ORDERED: Midazolam* 1 MG/ML 10 ML VIAL (10 MG) ONE (17:51)
[2019-02-05] MEDS ORDERED: fentaNYL* 50 MCG/ML 2 ML VIAL (100 MCG VIAL) ONE (17:55)
[2019-02-05 21:01] LABS: Hematocrit 38 % (42-52); Hemoglobin 12.7 g/dL (14.0-18.0)
--- NOTE | 2019-02-05 22:00 | PRO ---
CC: Dr. Roque Arevalo PROCEDURE REPORT: DATE OF PROCEDURE: 02/05/19 PROCEDURE: Colonoscopy - incomplete due to poor prep. INPATIENT PROVIDER: Dr. Roque Arevalo. INDICATION: The patient presented with constipation x 2 weeks and hematochezia with dark maroon blood. H/H relatively stable since admission. He has been on Plavix and aspirin. Plavix has been held since admission. Regarding patient's recent history, he underwent a TAVR with mitral valve clipping on 11/20/18. During his hospitalization for cardiac surgery, he was incidentally noted to have a mass in the rectum with questionable mediastinal adenopathy. Apparently, a flex-sig demonstrated a mass in the rectum with path confirming tubovillous adenoma. No complete colonoscopy has yet been performed. No formal surgical plan for large rectal polyp has yet been made. Plan is for colonoscopy today to evaluate for possible bleeding source as well as evaluate remainder of colon for other polyp or mass prior to surgical resection of rectal polyp. MEDICATIONS GIVEN: 1. Midazolam 3 mg IV. 2. Fentanyl 25 mcg IV. Patient was unable to be sedated well due to hypotension (SBP in mid-70s) after receiving minimal sedation. DESCRIPTION OF THE PROCEDURE: Full disclosure of risks was reviewed with the patient as detailed on the consent form. The patient was placed in the left lateral decubitus position and monitored with continuous pulse oximetry, capnography, interval blood pressure monitoring, and direct observation. After anorectal examination was performed, the adult colonoscope was inserted into the rectum and slowly advanced forward to the level of approximately the descending colon. Prep was poor. Findings described below. FINDINGS: Anorectal exam was unremarkable. Scope was inserted into rectum and slowly advanced forward. There was copious amounts of thick, sludgy, dark brown stool throughout the colon. Stool was unable to be adequately suctioned. Semi- solid material clogged the scope on several occasions. The patient was also largely incontinent to the liquid stool once the procedure started. Very significantly limited views of the colon were able to be obtained as a result of the prep. The scope was advanced to the descending colon at which point the decision was made to abort the procedure due to the poor prep. Stool was dark brown. No melena or red blood seen. There was a non-bleeding rectal mass which was incompletely seen due to the prep. There appeared to be a tattoo across from the mass. The scope was withdrawn from the patient. The patient tolerated the procedure well and has recovered in the GI recovery area. IMPRESSION: 1. Incomplete colonoscopy due to poor prep. 2. Known rectal mass was seen, although views were quite limited due to prep. 3. No red blood or melena. Brown stool. Bleeding has stopped. FOLLOWUP: 1. Continue to monitor CBC daily. 2. Continue aspirin. Plavix on hold, per primary team. 3. Clear diet. 4. I would recommend GoLYTELY 2 L on Friday and Friday to continue prepping for colonoscopy. May need Mag citrate or Bisacodyl depending on stool output color. Will tentatively plan for repeat colonoscopy on Friday to evaluate for source of bleeding and assess remainder of colon given identification of very large rectal polyp. Patient will likely need surgical resection of this polyp as it is reportedly not endoscopically resectable. Can discuss surgical evaluation in [place] or referral back to [place] pending complete colonoscopy findings. 5. I would recommended that the patient be started on a bowel regimen after the completion of the colonoscopy as he was very constipated prior to the admission. Plan discussed with the patient, the patient's , and Dr. Arevalo. Thank you very much for this consult. GI will continue to follow along. [id number]/[facility] #: [id number] [place]
[2019-02-05] MEDS: Atorvastatin* 20 MG TAB PO SCH (22:40)
[2019-02-06] MEDS: D5W 1/2 NS 1000 ML BAG* 1,000 ML IV SCH ×2 (03:32→13:25)
[2019-02-06] MEDS: Insulin NPH(*) 1 UNITS UNIT SUBCUT SCH ×3 (06:06→21:43)
[2019-02-06 06:52] LABS: ABS Eosinophils 0.3 10^3/ul (0-0.6); ABS Lymphocytes 1.8 10^3/ul (1.0-4.8); ABS Monocytes 0.8 10^3/ul (0-0.8); ABS Neutrophils 5.8 10^3/ul (1.5-7.7); Eosinophil % 3.9 %; Hematocrit 35 % (42-52); Hemoglobin 11.9 g/dL (14.0-18.0); Lymphocyte % 20.6 %; Mean Corpuscular HGB Conc 34 g/dL (31-36); Mean Corpuscular Hemoglobin 30 pg (27-31); Mean Corpuscular Volume 88 fL (80-94); Mean Platelet Volume 8.7 fL (7.4-10.4); Platelet Count 244 10^3/uL (150-450); Red Blood Count 3.93 10^6 /uL (4.18-5.48); Red Cell Distribution Width 15 % (10-15); White Blood Count 8.8 10^3/uL (3.5-10.8)
[2019-02-06 07:01] LABS: BUN/Creatinine Ratio 15.9 (8-20); Calcium 8.6 mg/dL (8.6-10.3); EGFR African American 80.5 (>60); EGFR Non-African American 66.5 (>60); Potassium 3.5 mmol/L (3.5-5.0)
[2019-02-06] MEDS: Furosemide TAB* 40 MG PO SCH ×2 (08:52→21:42)
[2019-02-06] MEDS: Ramipril CAP* 5 MG PO SCH (08:52)
[2019-02-06] MEDS: Insulin LISPRO* 1 UNITS UNIT SUBCUT SCH ×4 (08:52→21:30)
[2019-02-06] MEDS: Metoprolol Succinate XL TAB* 25 MG PO SCH (08:52)
[2019-02-06] MEDS: Aspirin 81 mg CHEW TAB* 81 MG TAB.CHEW PO SCH (08:52)
--- NOTE | 2019-02-06 10:18 | PN ---
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 Clearly, this needs to be repeated as the bowel preparation was insufficient. He needs to be in the [facility] for this and Kolton Zamorano accepts this. He is feeling well otherwise - he has had no chest pain, palpitations, problems with breathing or a cough. His urination is appropriate. There has been no further hematochezia. 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) Z95.3 Type 2 diabetes mellitus with hyperglycemia (Chronic) E11.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 with neurological manifestations, uncontrolled (Chronic ) E11.49, E11.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, uncontrolled, with renal complications (Chronic) E11.29, E11.65 Weakness of both legs (Chronic) R29.898 Current Medications: Current Medications Acetaminophen (Tylenol Tab*) 650 mg PO Q4H PRN PRN Reason: PAIN Albuterol (Ventolin Hfa Inhaler*) 2 puff INH Q6H PRN PRN Reason: SOB/WHEEZING Aspirin (Aspirin 81 Mg Chew Tab*) 162 mg PO DAILY [facility] Last Admin: 02/06/19 08:52 Dose: 162 mg Atorvastatin Calcium (Lipitor*) 20 mg PO BEDTIME [facility] Last Admin: 02/05/19 22:40 Dose: 20 mg Dextrose (Dextrose 50% Vial 50 Ml*) 25 ml IV PUSH .FOR FS < 60 - SS PRN PRN Reason: FS < 60 Last Admin: 02/04/19 23:29 Dose: 25 ml Furosemide (Lasix Tab*) 40 mg PO BID [facility] Last Admin: 02/06/19 08:52 Dose: 40 mg Dextrose/Sodium Chloride (D5w 1/2 Ns 1000 Ml Bag*) 1,000 mls @ 100 mls/hr IV PER RATE [facility] Last Admin: 02/06/19 03:32 Dose: 100 mls/hr Insulin Human Lispro (Humalog*) 0 units SUBCUT ACHS [facility]; Protocol Last Admin: 02/06/19 08:52 Dose: 12 units Insulin Human NPH (Insulin Nph(*)) 20 units SUBCUT Q8HR [facility] Last Admin: 02/06/19 06:06 Dose: 20 unit Metoprolol Succinate (Toprol Xl Tab*) 25 mg PO DAILY [facility] Last Admin: 02/06/19 08:52 Dose: 25 mg Ondansetron HCl (Zofran Inj*) 4 mg IV Q6H PRN PRN Reason: NAUSEA Ramipril (Altace Cap*) 5 mg PO DAILY [facility] Last Admin: 02/06/19 08:52 Dose: 5 mg Home Medications: Home Medications Medication Instructions Recorded Confirmed Type Aspirin EC TAB* [Ecotrin EC Low 81 mg PO DAILY 02/07/16 02/03/19 History Dose 81 MG*] Simvastatin [Zocor 40 MG (NF)] 40 mg PO BEDTIME 02/07/16 02/03/19 History Insulin ISOPH/REG 70/30 (*) 30 units SUBCUT AC MDD 200 units 11/09/18 02/03/19 History [HumuLIN 70/30 (*)] Metoprolol Succinate XL TAB* 25 mg PO DAILY 11/09/18 02/03/19 History [Toprol XL TAB*] Albuterol HFA INHALER* [Ventolin 2 puff INH Q6HR PRN 11/11/18 02/03/19 History HFA Inhaler*] Furosemide TAB* [Lasix TAB*] 40 mg PO BID 11/11/18 02/03/19 History Liraglutide (NF) [Victoza (NF)] 1.8 mg SUBCUT DAILY 11/11/18 02/03/19 History Ramipril CAP* [Altace CAP*] 5 mg PO DAILY 11/11/18 02/03/19 History Clopidogrel Bisulfate [Plavix] 75 mg PO DAILY 02/03/19 02/03/19 History Ferrous Sulfate 325 mg PO DAILY 02/03/19 02/03/19 History Melatonin [Meladox] 3 mg PO BEDTIME 02/03/19 02/03/19 History Allergies: Allergies Allergy/AdvReac Type Severity Reaction Status Date / Time sulfamethoxazole Allergy Intermediate See Comment Verified 11/11/18 15:05 [From Bactrim] trimethoprim [From Bactrim] Allergy Intermediate See Comment Verified 11/11/18 15:05 Objective - Vital Signs Vital Signs: Vital Signs 02/05/19 02/05/19 02/05/19 11:15 15:15 19:43 Temperature 98.1 F 97.1 F 97.5 F Pulse Rate 66 63 73 Respiratory 17 17 16 Rate Blood Pressure 111/51 100/49 117/55 (mmHg) O2 Sat by Pulse 98 100 100 Oximetry 02/05/19 02/06/19 02/06/19 22:00 00:00 00:20 Temperature 97.3 F 97.1 F Pulse Rate 65 62 Respiratory 18 19 19 Rate Blood Pressure 118/55 127/61 (mmHg) O2 Sat by Pulse 99 97 Oximetry 02/06/19 02/06/19 03:22 08:00 Temperature 97.8 F 96.9 F Pulse Rate 67 68 Respiratory 17 14 Rate Blood Pressure 112/55 107/55 (mmHg) O2 Sat by Pulse 96 95 Oximetry - Intake and Output Intake and Output: Intake & Output 02/03/19 02/04/19 02/05/19 02/06/19 11:59 11:59 11:59 11:59 Intake Total 720 0 360 Output Total 225 700 Balance 720 -225 -340 Weight 236 lb Intake: Oral 720 0 360 Output: Urine 225 700 Other: Estimated Void Small Large Date of Last Bowel 02/22/19 Movement # Bowel Movements 1 1 0 Estimated Stool Amount Small Large Large # Voids 3 1 ADLs: Meal Record Start: 02/03/19 23: 53 Freq: DAILY@0900,1400,1800 Status: Active Protocol: Created 02/03/19 23:53 System (Rec: 02/03/19 23:53 System MED-C07) Document 02/04/19 09:00 [id number] (Rec: 02/04/19 09:56 [id number] MED-C09) Document 02/04/19 14:00 [id number] (Rec: 02/04/19 14:05 [id number] MED-C11) Document 02/04/19 18:51 [id number] (Rec: 02/04/19 18:51 [id number] MED-C09) Document 02/05/19 09:00 [id number] (Rec: 02/05/19 09:41 [id number] MED-C14) Document 02/05/19 14:00 [id number] (Rec: 02/05/19 16:17 [id number] MED-C09) Document 02/05/19 18:00 [id number] (Rec: 02/05/19 18:17 [id number] MED-C09) Intake and Output Start: 02/03/19 20: 08 Freq: Status: Active Protocol: Created 02/03/19 20:08 System (Rec: 02/03/19 20:08 System EDRM-C08) Intake and Output Start: 02/03/19 23: 53 Freq: DAILY@0600,1400,2200 Status: Active Protocol: Created 02/03/19 23:53 System (Rec: 02/03/19 23:53 System MED-C07) Document 02/04/19 05:45 [id number] (Rec: 02/04/19 05:48 [id number] MED-C14) Document 02/04/19 12:50 [id number] (Rec: 02/04/19 12:50 [id number] MED-C09) Document 02/04/19 14:00 [id number] (Rec: 02/04/19 14:06 [id number] MED-C11) Document 02/05/19 05:28 [id number] (Rec: 02/05/19 05:29 [id number] MED-C04) Document 02/05/19 14:00 [id number] (Rec: 02/05/19 16:20 [id number] MED-C09) Document 02/05/19 22:00 [id number] (Rec: 02/05/19 22:17 [id number] MED-C26) Document 02/06/19 06:00 [id number] (Rec: 02/06/19 06:13 [id number] MED-C09) - Physical Exam General: No Cyanosis, No Anemia, No Jaundice, No Clubbing Endocrine: Yes Central Obesity Lungs and Chest: Yes: Chest Expansion Full, Chest Expansion Symetrica, Percussion Note Resonant, Vessicular Breath Sounds. No: Crackles, Wheezes Heart Rate and Rhythm: Regular Additional Cardiovascular: Yes: Normal Heart Sounds, Pedal Edema - trace. No: Heart Murmur Abdominal Exam: Yes: Distention - mild, Soft, Bowel Sounds Present. No: Rigidity, Abdominal Tenderness, Guarding, Rebound Tenderness Results - Results Lab Results: Laboratory Results - last 24 hr 02/05/19 02/05/19 02/05/19 12:20 16:32 20:10 WBC RBC Hgb 12.7 L Hct 38 L MCV MCH MCHC RDW Plt Count MPV Neut % (Auto) Lymph % (Auto) [place] % (Auto) Eos % (Auto) Baso % (Auto) Absolute Neuts (auto) Absolute Lymphs (auto) Absolute Monos (auto) Absolute Eos (auto) Absolute Basos (auto) Absolute Nucleated RBC Nucleated RBC % Sodium Potassium Chloride Carbon Dioxide Anion Gap BUN Creatinine Est GFR ( Amer) Est GFR (Non-Af Amer) BUN/Creatinine Ratio Glucose POC Glucose (mg/dL) 172 H 162 H Calcium 02/05/19 02/06/19 02/06/19 20:13 06:14 06:14 WBC 8.8 RBC 3.93 L Hgb 11.9 L Hct 35 L MCV 88 MCH 30 MCHC 34 RDW 15 Plt Count 244 MPV 8.7 Neut % (Auto) 65.8 Lymph % (Auto) 20.6 [place] % (Auto) 9.3 Eos % (Auto) 3.9 Baso % (Auto) 0.4 Absolute Neuts (auto) 5.8 Absolute Lymphs (auto) 1.8 Absolute Monos (auto) 0.8 Absolute Eos (auto) 0.3 Absolute Basos (auto) 0.0 Absolute Nucleated RBC 0.0 Nucleated RBC % 0.0 Sodium 135 Potassium 3.5 Chloride 99 L Carbon Dioxide 29 Anion Gap 7 BUN 17 Creatinine 1.07 Est GFR ( Amer) 80.5 Est GFR (Non-Af Amer) 66.5 BUN/Creatinine Ratio 15.9 Glucose 220 H POC Glucose (mg/dL) 234 H Calcium 8.6 02/06/19 07:16 WBC RBC Hgb Hct MCV MCH MCHC RDW Plt Count MPV Neut % (Auto) Lymph % (Auto) [place] % (Auto) Eos % (Auto) Baso % (Auto) Absolute Neuts (auto) Absolute Lymphs (auto) Absolute Monos (auto) Absolute Eos (auto) Absolute Basos (auto) Absolute Nucleated RBC Nucleated RBC % Sodium Potassium Chloride Carbon Dioxide Anion Gap BUN Creatinine Est GFR ( Amer) Est GFR (Non-Af Amer) BUN/Creatinine Ratio Glucose POC Glucose (mg/dL) 225 H Calcium Assessment - Problem List Assessment: Patient Problems Decubitus ulcer of buttock, stage 2 (Acute) Lower GI bleed (Acute) Villous adenoma of rectum (Acute) BPH (benign prostatic hyperplasia) (Chronic) Cardiac pacemaker (Chronic) Hypercholesteremia (Chronic) Left knee pain (Chronic) Obesities, morbid (Chronic) Pulmonary nodule less than 6 cm determined by computed tomography of lung ( Chronic) Spinal stenosis at L4-L5 level (Chronic) 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 Jag Busch recommends inpatient bowel preparation, colonoscopy and possible resection of lesion surgically during this admission. I had switched him to aspirin from clopidogrel. He has had no further bleeding. Comorbidities: Decubitus ulcer of buttock, stage 2 (Acute) Encouraged to reduce pressure on his buttocks Type 2 diabetes mellitus with hyperglycemia (Chronic)Type 2 diabetes mellitus with neurological manifestations, uncontrolled (Chronic) Type 2 diabetes mellitus, uncontrolled, with renal complications (Chronic) He is hyperglycemic - I will increase his dose of N insulin Edema This is likely due to his obesity, poor venous return and some diastolic heart failure. 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 They understand the current problem and are willing to go ahead to complete the bowel work up and also if needed surgery.
[2019-02-06] MEDS: PEG 3000 GI LAVAGE* 1 GALLON PO SCH (13:27)
[2019-02-06] MEDS: Atorvastatin* 20 MG TAB PO SCH (21:42)
[2019-02-07] MEDS: Insulin NPH(*) 1 UNITS UNIT SUBCUT SCH ×3 (06:05→22:50)
[2019-02-07 07:54] LABS: BUN/Creatinine Ratio 12.8 (8-20); Calcium 8.6 mg/dL (8.6-10.3); EGFR African American 93.4 (>60); EGFR Non-African American 77.2 (>60); Potassium 3.4 mmol/L (3.5-5.0)
[2019-02-07] MEDS: Aspirin 81 mg CHEW TAB* 81 MG TAB.CHEW PO SCH (08:57)
[2019-02-07] MEDS: Metoprolol Succinate XL TAB* 25 MG PO SCH (08:57)
[2019-02-07] MEDS: Insulin LISPRO* 1 UNITS UNIT SUBCUT SCH ×4 (08:57→22:50)
[2019-02-07] MEDS: Ramipril CAP* 5 MG PO SCH (08:58)
[2019-02-07] MEDS: Furosemide TAB* 40 MG PO SCH ×2 (08:58→22:50)
[2019-02-07] MEDS: PEG 3000 GI LAVAGE* 1 GALLON PO SCH (09:04)
[2019-02-07] MEDS: D5W 1/2 NS 1000 ML BAG* 1,000 ML IV SCH ×2 (09:07→18:53)
[2019-02-07] MEDS ORDERED: Bisacodyl EC TAB* 5 MG PO ONE (10:15)
[2019-02-07] MEDS: KCL 20 MEQ/100 ML IVPREMIX* 20 MEQ/100 ML BAG IV SCH ×3 (12:19→18:52)
[2019-02-07] MEDS ORDERED: Magnesium CITRATE* 300 ML BTL PO ONE (13:46)
[2019-02-07] MEDS: Atorvastatin* 20 MG TAB PO SCH (22:50)
[2019-02-08] MEDS: Insulin NPH(*) 1 UNITS UNIT SUBCUT SCH ×3 (06:43→23:16)
[2019-02-08] MEDS: Metoprolol Succinate XL TAB* 25 MG PO SCH (08:18)
[2019-02-08] MEDS: Aspirin 81 mg CHEW TAB* 81 MG TAB.CHEW PO SCH (08:18)
[2019-02-08] MEDS: Ramipril CAP* 5 MG PO SCH (08:18)
[2019-02-08] MEDS: Insulin LISPRO* 1 UNITS UNIT SUBCUT SCH ×3 (08:18→17:49)
[2019-02-08] MEDS: Furosemide TAB* 40 MG PO SCH ×2 (08:18→23:16)
[2019-02-08] MEDS: D5W 1/2 NS 1000 ML BAG* 1,000 ML IV SCH (08:25)
--- NOTE | 2019-02-08 08:43 | PN ---
Subjective - Subjective Reason for Note: Progress Note History: He has received bowel preparation for a colonoscopy - he didn't tolerate golytely and required MOM and other measures. He has not had a bowel movement overnight - but he had liquid passing last night that was clear. He is mildly hypoglycemic this morning. 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) Z95.3 Type 2 diabetes mellitus with hyperglycemia (Chronic) E11.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 with neurological manifestations, uncontrolled (Chronic ) E11.49, E11.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, uncontrolled, with renal complications (Chronic) E11.29, E11.65 Weakness of both legs (Chronic) R29.898 Current Medications: Current Medications Acetaminophen (Tylenol Tab*) 650 mg PO Q4H PRN PRN Reason: PAIN Albuterol (Ventolin Hfa Inhaler*) 2 puff INH Q6H PRN PRN Reason: SOB/WHEEZING Aspirin (Aspirin 81 Mg Chew Tab*) 162 mg PO DAILY [facility] Last Admin: 02/08/19 08:18 Dose: Not Given Atorvastatin Calcium (Lipitor*) 20 mg PO BEDTIME [facility] Last Admin: 02/07/19 22:50 Dose: 20 mg Dextrose (Dextrose 50% Vial 50 Ml*) 25 ml IV PUSH .FOR FS < 60 - SS PRN PRN Reason: FS < 60 Last Admin: 02/04/19 23:29 Dose: 25 ml Furosemide (Lasix Tab*) 40 mg PO BID [facility] Last Admin: 02/08/19 08:18 Dose: Not Given Dextrose/Sodium Chloride (D5w 1/2 Ns 1000 Ml Bag*) 1,000 mls @ 100 mls/hr IV PER RATE [facility] Last Admin: 02/08/19 08:25 Dose: 100 mls/hr Insulin Human Lispro (Humalog*) 0 units SUBCUT ACHS [facility]; Protocol Last Admin: 02/08/19 08:18 Dose: Not Given Insulin Human NPH (Insulin Nph(*)) 30 units SUBCUT Q8HR [facility] Last Admin: 02/08/19 06:43 Dose: Not Given Metoprolol Succinate (Toprol Xl Tab*) 25 mg PO DAILY [facility] Last Admin: 02/08/19 08:18 Dose: Not Given Ondansetron HCl (Zofran Inj*) 4 mg IV Q6H PRN PRN Reason: NAUSEA Ramipril (Altace Cap*) 5 mg PO DAILY [facility] Last Admin: 02/08/19 08:18 Dose: Not Given Home Medications: Home Medications Medication Instructions Recorded Confirmed Type Aspirin EC TAB* [Ecotrin EC Low 81 mg PO DAILY 02/07/16 02/03/19 History Dose 81 MG*] Simvastatin [Zocor 40 MG (NF)] 40 mg PO BEDTIME 02/07/16 02/03/19 History Insulin ISOPH/REG 70/30 (*) 30 units SUBCUT AC MDD 200 units 11/09/18 02/03/19 History [HumuLIN 70/30 (*)] Metoprolol Succinate XL TAB* 25 mg PO DAILY 11/09/18 02/03/19 History [Toprol XL TAB*] Albuterol HFA INHALER* [Ventolin 2 puff INH Q6HR PRN 11/11/18 02/03/19 History HFA Inhaler*] Furosemide TAB* [Lasix TAB*] 40 mg PO BID 11/11/18 02/03/19 History Liraglutide (NF) [Victoza (NF)] 1.8 mg SUBCUT DAILY 11/11/18 02/03/19 History Ramipril CAP* [Altace CAP*] 5 mg PO DAILY 11/11/18 02/03/19 History Clopidogrel Bisulfate [Plavix] 75 mg PO DAILY 02/03/19 02/03/19 History Ferrous Sulfate 325 mg PO DAILY 02/03/19 02/03/19 History Melatonin [Meladox] 3 mg PO BEDTIME 02/03/19 02/03/19 History Allergies: Allergies Allergy/AdvReac Type Severity Reaction Status Date / Time sulfamethoxazole Allergy Intermediate See Comment Verified 11/11/18 15:05 [From Bactrim] trimethoprim [From Bactrim] Allergy Intermediate See Comment Verified 11/11/18 15:05 Objective - Vital Signs Vital Signs: Vital Signs 02/07/19 02/07/19 02/07/19 09:00 09:30 11:15 Temperature 97.3 F Pulse Rate 65 Respiratory 16 16 14 Rate Blood Pressure 90/37 (mmHg) O2 Sat by Pulse 100 Oximetry 02/07/19 02/07/19 02/07/19 11:40 16:00 19:00 Temperature 98.3 F 98.4 F Pulse Rate 73 75 Respiratory 24 22 Rate Blood Pressure 108/46 121/54 106/54 (mmHg) O2 Sat by Pulse 99 100 Oximetry 02/07/19 02/08/19 02/08/19 23:45 03:15 07:15 Temperature 97.6 F 97.4 F 98.9 F Pulse Rate 71 72 71 Respiratory 16 16 16 Rate Blood Pressure 116/48 101/52 91/54 (mmHg) O2 Sat by Pulse 100 98 96 Oximetry - Intake and Output Intake and Output: Intake & Output 02/05/19 02/06/19 02/07/19 02/08/19 11:59 11:59 11:59 11:59 Intake Total 0 480 7448 3803 Output Total 225 700 1 Balance -225 -220 7447 3803 Intake: IV Fluids 2618 2145 D5W 1/2 NS 2618 2145 KCL 0 IVPB 198 KCL 198 Oral 0 480 4830 1460 Output: Urine 225 700 1 Other: Estimated Void Large Medium Medium Date of Last Bowel 02/07/19 Movement # Bowel Movements 1 0 3 0 Estimated Stool Amount Large Large Medium Large # Voids 1 3 1 ADLs: Meal Record Start: 02/03/19 23: 53 Freq: DAILY@0900,1400,1800 Status: Active Protocol: Created 02/03/19 23:53 System (Rec: 02/03/19 23:53 System MED-C07) Document 02/04/19 09:00 [id number] (Rec: 02/04/19 09:56 [id number] MED-C09) Document 02/04/19 14:00 [id number] (Rec: 02/04/19 14:05 [id number] MED-C11) Document 02/04/19 18:51 [id number] (Rec: 02/04/19 18:51 [id number] MED-C09) Document 02/05/19 09:00 [id number] (Rec: 02/05/19 09:41 [id number] MED-C14) Document 02/05/19 14:00 [id number] (Rec: 02/05/19 16:17 [id number] MED-C09) Document 02/05/19 18:00 [id number] (Rec: 02/05/19 18:17 [id number] MED-C09) Document 02/06/19 09:00 [id number] (Rec: 02/06/19 10:48 [id number] MED-C11) Document 02/06/19 13:34 [id number] (Rec: 02/06/19 13:35 [id number] MED-C11) Document 02/06/19 18:00 [id number] (Rec: 02/06/19 18:56 [id number] MED-C11) Document 02/07/19 09:00 [id number] (Rec: 02/07/19 10:20 [id number] MED-C11) Document 02/07/19 14:00 [id number] (Rec: 02/07/19 15:23 [id number] MED-C11) Document 02/07/19 18:00 [id number] (Rec: 02/07/19 20:50 [id number] MED-C07) Intake and Output Start: 02/03/19 20: 08 Freq: Status: Active Protocol: Created 02/03/19 20:08 System (Rec: 02/03/19 20:08 System EDRM-C08) Intake and Output Start: 02/03/19 23: 53 Freq: DAILY@0600,1400,2200 Status: Active Protocol: Created 02/03/19 23:53 System (Rec: 02/03/19 23:53 System MED-C07) Document 02/04/19 05:45 [id number] (Rec: 02/04/19 05:48 [id number] MED-C14) Document 02/04/19 12:50 [id number] (Rec: 02/04/19 12:50 [id number] MED-C09) Document 02/04/19 14:00 [id number] (Rec: 02/04/19 14:06 [id number] MED-C11) Document 02/05/19 05:28 [id number] (Rec: 02/05/19 05:29 [id number] MED-C04) Document 02/05/19 14:00 [id number] (Rec: 02/05/19 16:20 [id number] MED-C09) Document 02/05/19 22:00 [id number] (Rec: 02/05/19 22:17 [id number] MED-C26) Document 02/06/19 06:00 [id number] (Rec: 02/06/19 06:13 [id number] MED-C09) Document 02/06/19 14:00 [id number] (Rec: 02/06/19 14:18 [id number] MED-C11) Document 02/06/19 21:55 [id number] (Rec: 02/06/19 21:57 [id number] MED-C11) Document 02/07/19 05:56 [id number] (Rec: 02/07/19 05:58 [id number] MED-C09) Document 02/07/19 05:58 [id number] (Rec: 02/07/19 05:59 [id number] MED-M19) Document 02/07/19 14:00 [id number] (Rec: 02/07/19 15:25 [id number] MED-C11) Document 02/07/19 22:00 [id number] (Rec: 02/07/19 22:30 [id number] MED-C07) Document 02/08/19 05:49 [id number] (Rec: 02/08/19 05:50 [id number] MED-C09) - Physical Exam General Physical Exam Comment: He is alert and oriented, showing no signs of neuroglycopenia General: No Cyanosis, No Anemia, No Jaundice, No Clubbing Lungs and Chest: Yes: Chest Expansion Full, Chest Expansion Symetrica, Percussion Note Resonant, Vessicular Breath Sounds. No: Crackles, Wheezes Heart Rate and Rhythm: Regular JVP: Not Elevated Additional Cardiovascular: Yes: Normal Heart Sounds, Pedal Edema - trace. No: Heart Murmur Abdominal Exam: Yes: Distention - mild, Soft, Bowel Sounds Present. No: Abdominal Tenderness Results - Results Lab Results: Laboratory Results - last 24 hr 02/07/19 02/07/19 02/07/19 11:55 16:37 22:35 POC Glucose (mg/dL) 285 H 251 H 145 H 02/08/19 08:16 POC Glucose (mg/dL) 65 L Assessment - Problem List Assessment: Patient Problems Decubitus ulcer of buttock, stage 2 (Acute) Lower GI bleed (Acute) Villous adenoma of rectum (Acute) BPH (benign prostatic hyperplasia) (Chronic) Cardiac pacemaker (Chronic) Hypercholesteremia (Chronic) Left knee pain (Chronic) Obesities, morbid (Chronic) Pulmonary nodule less than 6 cm determined by computed tomography of lung ( Chronic) Spinal stenosis at L4-L5 level (Chronic) 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 Villous adenoma of rectum - with hematochezia - he is due for a full colonoscopy today. If the remainder of his colon is clear, we will seek a surgery consultation for a colectomy 2. Hypoglycemia - for an ampoule of 50% dextrose 3. secondary diagnoses - otherwise stable. I discussed the above with Kolton and Terrell Zamorano and they agree with the plan
[2019-02-08] MEDS: Dextrose 50% VIAL 50 ml IV PUSH PRN (08:51)
[2019-02-08] MEDS ORDERED: fentaNYL* 50 MCG/ML 2 ML VIAL (100 MCG VIAL) ONE (14:01)
[2019-02-08] MEDS ORDERED: Midazolam* 1 MG/ML 10 ML VIAL (10 MG) ONE (14:01)
--- NOTE | 2019-02-08 15:27 | PN ---
Progress Note - Progress Note Date of Service: 02/08/19 Note: colonoscopy procedure report; done to cecum, fair prep; 4 polyps......3 in cecum removed with bx and snare; one polyp at 40cm s/p snare polypectomy; large rectal mass......will need surgery; call placed Parish Proctor MD [facility]
--- NOTE | 2019-02-08 20:49 | PRO ---
CC: Dr. Arevalo * DATE OF PROCEDURE: 02/08/19 - ROOM #413 PROCEDURE: Colonoscopy. INDICATION: Known rectal mass, tubulovillous adenoma, needs full colonoscopy prior to surgery. REFERRING PHYSICIAN: Dr. Arevalo. MEDICATIONS GIVEN: 25 mcg IV fentanyl, 2 mg IV Versed. DESCRIPTION OF PROCEDURE: After the colonoscopy procedure, including the risks , benefits, and alternatives, not limited to perforation, surgery, and/or were explained to Mr. Zamorano, written consent was then obtained, IV medication was given, and a rectal exam was performed. The rectal exam was unremarkable. An Olympus colonoscope was then inserted into the patient's rectum and advanced very carefully through the entirety of the colon and into the cecal base. Careful and thorough inspection within the cecal base did not reveal any abnormalities, however, the quality of the preparation was only fair. There was a large amount of liquid or retained stool throughout the entirety of the colon. The patient has had an incomplete colonoscopy just 2 days ago due to a poor prep. I suctioned and washed as much of the liquid stool as I possibly could; however, small lesions very well could have been missed. The scope was then with-drawn in a very careful manner over the next 10 minutes through the remainder of the colon. Three colon polyps were seen in the cecum, two removed with snare polypectomy, one removed with Jumbo biopsy forceps. Adequate hemostasis was achieved and specimens were retrieved. Scope was then withdrawn from the remainder of the colon. At 40 cm from the anal verge was another medium sized polyp, it was removed using snare polypectomy. Adequate hemostasis was achieved and specimen was retrieved, this was in the proximal sigmoid colon. Scope was then with-drawn from the remainder of the colon, there was a very large mass at approximately 5 cm, it was tattooed previously. Scope was withdrawn from the patient. He tolerated the procedure well and was returned to the hospital room in stable condition. IMPRESSION: 1. Complete colonoscopy into the cecum with snare polypectomy and biopsy polypectomy. 2. Four colorectal polyps status post snare polypectomy of two, biopsy polypectomy of two. 3. I will follow up on all the polyps, he will need surgical consultation regarding the rectal mass. [id number]/[facility] #: [id number] MTDD
--- NOTE | 2019-02-08 21:49 | CONS ---
CC: Dr. Roque Arevalo; Dr. Parish Proctor * CONSULTATION REPORT: DATE OF CONSULT: 02/08/19 REFERRING PROVIDER: Dr. Parish Proctor. REASON FOR CONSULT: Rectal polyp. HISTORY OF PRESENT ILLNESS: Mr. Zamorano is a very pleasant 78-year-old male who has a complicated medical history, who was recently a patient at [facility] in [place] where he was treated for severe aortic stenosis, congestive heart failure, and he has undergone a TAVR and mitral valve clipping as well as single vessel cardiac stenting and a pacemaker placement. He was discharged to [facility] for continued rehabilitation, but was admitted to the hospital last Friday with some maroon stools after having bowel movements. The bleeding persisted for several days, and according to the nurses , has stopped on Friday or Friday and he has had no further bleeding since. He has had no abdominal discomfort; he has not had any black tarry stools. he has been on Plavix after his cardiac procedure and this has been stopped. He continues on aspirin. On review of the records from [place], apparently he underwent a CT scan of his abdomen and pelvis for cardiovascular indications and was noted to have what is described as a 3.9 cm x 3.3 cm x 4.4 cm mass at the rectosigmoid junction on CT scan. He had a CEA that was done which was normal. There was concern about another portion of CT that showed a lymph node in the mediastinum. He underwent a flexible sigmoidoscopy by Dr. Sy at [facility] on . This was only a flexible sigmoidoscopy to about 30 cm due to the poor nature of the prep and this showed a large sessile polyp at 15 cm from the anal verge and it was described as approximately 3 cm. It was broad-based as well. Pathology showed fragments of tubulovillous adenoma. He was discharged home for rehab after his cardiac evaluation with plans for resection of this polyp depending on clinical course. On Friday he underwent an attempted colonoscopy with Dr. Galdamez which was incomplete due to poor prep. He was reprepped over the weekend and Dr. Proctor performed a complete colonoscopy today. He took off several of the benign- appearing polyps which were small and throughout the colon, and noted the rectal polyp which I believe he stated was approximately 5 cm. This had been tattooed by the poultry farmer egg in [place]. Surgical consultation was obtained. PAST MEDICAL HISTORY: 1. Congestive heart failure, improved, status post TAVR and mitral valve clipping. 2. Insulin-dependent diabetes. 3. Moderate to severe MR. 4. Aortic stenosis, status post TAVR. 5. Obstructive sleep apnea. 6. Diabetic neuropathy. 7. Hyperlipidemia. 8. Obesity. PAST SURGICAL HISTORY: 1. Cardiac, as per above. 2. 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 MEDICATIONS: Include simvastatin, Plavix which has since been stopped. He is presently on: 1. Baby aspirin a day. 2. Metoprolol. 3. Ferrous sulfate. 4. Aspirin. 5. Lasix. 6. Ventolin. 7. Victoza. 8. Senna. 9. MiraLax. 10. Lactulose. 11. Melatonin. 12. Novolin insulin. ALLERGIES: He is allergic to BACTRIM. SOCIAL HISTORY: He is . He lives with his . Presently at [facility] for rehab. 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 He does not drink alcohol. His is his healthcare proxy. REVIEW OF SYSTEMS: Included a complete 11-system review which was obtained. PHYSICAL EXAM: Temperature 98.4, pulse 91, blood pressure 195/63. General: Well- developed elderly male, appears to be in no apparent distress. He is quite alert, conversive, and very pleasant. Lungs were clear to auscultation with normal respiratory effort. He has a pacemaker in the left anterior chest wall. Abdomen was soft and nondistended. No prior surgical incisions. No hernias. He has no tenderness, mass, or organomegaly. Psychiatric: He is awake, alert, and oriented x3. He has normal judgment and insight. DIAGNOSTIC STUDIES/LAB DATA: Laboratory values include a white blood cell count of 8.8 with a hemoglobin of 11.9 which is consistent and stable since his admission of 12.9. He has a platelet count of 244,000. Electrolytes, BUN, and creatinine were all within normal limits. He has an albumin of 3.5. IMPRESSION AND RECOMMENDATIONS: Tubulovillous polyp in the rectum. This appears to be by flexible sigmoidoscopy in [place] at about 15 cm from the anal verge which should be most likely the rectosigmoid junction. I believe Dr. Proctor felt that this was somewhat closer to the anal verge and I will discuss this with him. CT scan also showed a mass in the rectosigmoid junction from [place]. CEA was normal. He has no family history or personal history of colon cancer or polyps. I discussed these findings with both the patient and his kelby. This is a larger polyp, and although appears to be benign on biopsy, certainly could have sampling area with its size certainly maybe harboring a portion of it as an invasive cancer and this should be resected. If it truly is at the junction of rectosigmoid, this would most likely require an intraabdominal low anterior resection. If it was lower down into the rectum, perhaps transanal excision would be possible or even transendoscopic removal which may need to be done by a colorectal surgeon either at [place] or [place]. I will discuss the findings further with Dr. Proctor as well as Dr. Arevalo. The patient is planning to be transferred back to [facility] tomorrow, there is no further bleeding and he may need further cardiac evaluation prior to any surgical intervention. Both he and his would like to stay here at [facility] for their care of this polyp if at all possible and we will proceed accordingly as more information is obtained. Also, I would like to try to obtain the actual CT scan done in [place] back in November that initially identified the polyp. Thank you for this consultation. We will follow along closely with you. [id number]/[facility] #: [id number] DINORA
[2019-02-08] MEDS: Atorvastatin* 20 MG TAB PO SCH (23:16)
[2019-02-09] MEDS: Insulin LISPRO* 1 UNITS UNIT SUBCUT SCH ×5 (01:33→21:42)
[2019-02-09 05:28] LABS: ABS Eosinophils 0.3 10^3/ul (0-0.6); ABS Lymphocytes 1.6 10^3/ul (1.0-4.8); ABS Monocytes 0.7 10^3/ul (0-0.8); ABS Neutrophils 5.7 10^3/ul (1.5-7.7); Eosinophil % 3.4 %; Hematocrit 34 % (42-52); Hemoglobin 11.6 g/dL (14.0-18.0); Lymphocyte % 18.9 %; Mean Corpuscular HGB Conc 34 g/dL (31-36); Mean Corpuscular Hemoglobin 30 pg (27-31); Mean Corpuscular Volume 89 fL (80-94); Mean Platelet Volume 8.7 fL (7.4-10.4); Platelet Count 214 10^3/uL (150-450); Red Blood Count 3.85 10^6 /uL (4.18-5.48); Red Cell Distribution Width 15 % (10-15); White Blood Count 8.3 10^3/uL (3.5-10.8)
[2019-02-09 05:50] LABS: BUN/Creatinine Ratio 11.9 (8-20); Calcium 8.4 mg/dL (8.6-10.3); EGFR Non-African American 71.1 (>60); Potassium 3.9 mmol/L (3.5-5.0)
[2019-02-09] MEDS: Insulin NPH(*) 1 UNITS UNIT SUBCUT SCH ×3 (06:04→21:43)
--- NOTE | 2019-02-09 09:08 | PN ---
Subjective - Subjective Reason for Note: Progress Note History: He tolerated the colonoscopy well. He has hyperglycemia today. Otherwise, he is feeling well and has had no further blood in his stool 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) Z95.3 Type 2 diabetes mellitus with hyperglycemia (Chronic) E11.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 with neurological manifestations, uncontrolled (Chronic ) E11.49, E11.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, uncontrolled, with renal complications (Chronic) E11.29, E11.65 Weakness of both legs (Chronic) R29.898 Current Medications: Current Medications Acetaminophen (Tylenol Tab*) 650 mg PO Q4H PRN PRN Reason: PAIN Albuterol (Ventolin Hfa Inhaler*) 2 puff INH Q6H PRN PRN Reason: SOB/WHEEZING Aspirin (Aspirin 81 Mg Chew Tab*) 162 mg PO DAILY [facility] Last Admin: 02/08/19 08:18 Dose: Not Given Atorvastatin Calcium (Lipitor*) 20 mg PO BEDTIME [facility] Last Admin: 02/08/19 23:16 Dose: 20 mg Dextrose (Dextrose 50% Vial 50 Ml*) 25 ml IV PUSH .FOR FS < 60 - SS PRN PRN Reason: FS < 60 Last Admin: 02/08/19 08:51 Dose: 25 ml Furosemide (Lasix Tab*) 40 mg PO BID [facility] Last Admin: 02/08/19 23:16 Dose: 40 mg Insulin Human Lispro (Humalog*) 0 units SUBCUT [facility]; Protocol Last Admin: 02/09/19 01:33 Dose: Not Given Insulin Human NPH (Insulin Nph(*)) 25 units SUBCUT Q8HR [facility] Metoprolol Succinate (Toprol Xl Tab*) 25 mg PO DAILY [facility] Last Admin: 02/08/19 08:18 Dose: Not Given Ondansetron HCl (Zofran Inj*) 4 mg IV Q6H PRN PRN Reason: NAUSEA Ramipril (Altace Cap*) 5 mg PO DAILY [facility] Last Admin: 02/08/19 08:18 Dose: Not Given Home Medications: Home Medications Medication Instructions Recorded Confirmed Type Aspirin EC TAB* [Ecotrin EC Low 81 mg PO DAILY 02/07/16 02/03/19 History Dose 81 MG*] Simvastatin [Zocor 40 MG (NF)] 40 mg PO BEDTIME 02/07/16 02/03/19 History Insulin ISOPH/REG 70/30 (*) 30 units SUBCUT AC MDD 200 units 11/09/18 02/03/19 History [HumuLIN 70/30 (*)] Metoprolol Succinate XL TAB* 25 mg PO DAILY 11/09/18 02/03/19 History [Toprol XL TAB*] Albuterol HFA INHALER* [Ventolin 2 puff INH Q6HR PRN 11/11/18 02/03/19 History HFA Inhaler*] Furosemide TAB* [Lasix TAB*] 40 mg PO BID 11/11/18 02/03/19 History Liraglutide (NF) [Victoza (NF)] 1.8 mg SUBCUT DAILY 11/11/18 02/03/19 History Ramipril CAP* [Altace CAP*] 5 mg PO DAILY 11/11/18 02/03/19 History Clopidogrel Bisulfate [Plavix] 75 mg PO DAILY 02/03/19 02/03/19 History Ferrous Sulfate 325 mg PO DAILY 02/03/19 02/03/19 History Melatonin [Meladox] 3 mg PO BEDTIME 02/03/19 02/03/19 History Allergies: Allergies Allergy/AdvReac Type Severity Reaction Status Date / Time sulfamethoxazole Allergy Intermediate See Comment Verified 11/11/18 15:05 [From Bactrim] trimethoprim [From Bactrim] Allergy Intermediate See Comment Verified 11/11/18 15:05 Objective - Vital Signs Vital Signs: Vital Signs 02/08/19 02/08/19 02/08/19 10:00 10:50 16:25 Temperature 98.5 F 97.2 F Pulse Rate 72 67 Respiratory 16 16 16 Rate Blood Pressure 111/59 114/57 (mmHg) O2 Sat by Pulse 100 100 Oximetry 02/08/19 02/08/19 02/08/19 17:20 18:20 20:00 Temperature 96.8 F 98.4 F Pulse Rate 79 91 Respiratory 16 16 16 Rate Blood Pressure 126/68 95/63 (mmHg) O2 Sat by Pulse 98 99 Oximetry 02/08/19 02/08/19 02/09/19 20:15 23:00 02:30 Temperature 98.6 F 97.6 F 97.3 F Pulse Rate 89 84 91 Respiratory 14 20 Rate Blood Pressure 110/52 103/57 116/55 (mmHg) O2 Sat by Pulse 99 98 97 Oximetry 02/09/19 07:15 Temperature 98.1 F Pulse Rate 87 Respiratory 16 Rate Blood Pressure 108/57 (mmHg) O2 Sat by Pulse 98 Oximetry - Intake and Output Intake and Output: Intake & Output 02/06/19 02/07/19 02/08/19 02/09/19 11:59 11:59 11:59 11:59 Intake Total 480 7448 3803 966 Output Total 700 1 Balance -220 7447 3803 966 Intake: IV Fluids 2618 2145 966 D5W 1/2 NS 2618 2145 966 KCL 0 IVPB 198 KCL 198 Oral 480 4830 1460 0 Output: Urine 700 1 Other: Estimated Void Medium Medium Large Date of Last Bowel 02/07/19 Movement # Bowel Movements 0 3 0 0 Estimated Stool Amount Large Medium Large # Voids 3 1 1 ADLs: Meal Record Start: 02/03/19 23: 53 Freq: DAILY@0900,1400,1800 Status: Active Protocol: Created 02/03/19 23:53 System (Rec: 02/03/19 23:53 System MED-C07) Document 02/04/19 09:00 [id number] (Rec: 02/04/19 09:56 [id number] MED-C09) Document 02/04/19 14:00 [id number] (Rec: 02/04/19 14:05 [id number] MED-C11) Document 02/04/19 18:51 [id number] (Rec: 02/04/19 18:51 [id number] MED-C09) Document 02/05/19 09:00 [id number] (Rec: 02/05/19 09:41 [id number] MED-C14) Document 02/05/19 14:00 [id number] (Rec: 02/05/19 16:17 [id number] MED-C09) Document 02/05/19 18:00 [id number] (Rec: 02/05/19 18:17 [id number] MED-C09) Document 02/06/19 09:00 [id number] (Rec: 02/06/19 10:48 [id number] MED-C11) Document 02/06/19 13:34 [id number] (Rec: 02/06/19 13:35 [id number] MED-C11) Document 02/06/19 18:00 [id number] (Rec: 02/06/19 18:56 [id number] MED-C11) Document 02/07/19 09:00 [id number] (Rec: 02/07/19 10:20 [id number] MED-C11) Document 02/07/19 14:00 [id number] (Rec: 02/07/19 15:23 [id number] MED-C11) Document 02/07/19 18:00 [id number] (Rec: 02/07/19 20:50 [id number] MED-C07) Document 02/08/19 08:46 [id number] (Rec: 02/08/19 08:46 [id number] MED-C09) Document 02/08/19 13:14 [id number] (Rec: 02/08/19 13:14 [id number] MED-C11) Document 02/08/19 18:00 [id number] (Rec: 02/08/19 19:07 [id number] MED-C09) Intake and Output Start: 02/03/19 20: 08 Freq: Status: Active Protocol: Created 02/03/19 20:08 System (Rec: 02/03/19 20:08 System EDRM-C08) Intake and Output Start: 02/03/19 23: 53 Freq: DAILY@0600,1400,2200 Status: Active Protocol: Created 02/03/19 23:53 System (Rec: 02/03/19 23:53 System MED-C07) Document 02/04/19 05:45 [id number] (Rec: 02/04/19 05:48 [id number] MED-C14) Document 02/04/19 12:50 [id number] (Rec: 02/04/19 12:50 [id number] MED-C09) Document 02/04/19 14:00 [id number] (Rec: 02/04/19 14:06 [id number] MED-C11) Document 02/05/19 05:28 [id number] (Rec: 02/05/19 05:29 [id number] MED-C04) Document 02/05/19 14:00 [id number] (Rec: 02/05/19 16:20 [id number] MED-C09) Document 02/05/19 22:00 [id number] (Rec: 02/05/19 22:17 [id number] MED-C26) Document 02/06/19 06:00 [id number] (Rec: 02/06/19 06:13 [id number] MED-C09) Document 02/06/19 14:00 [id number] (Rec: 02/06/19 14:18 [id number] MED-C11) Document 02/06/19 21:55 [id number] (Rec: 02/06/19 21:57 [id number] MED-C11) Document 02/07/19 05:56 [id number] (Rec: 02/07/19 05:58 [id number] MED-C09) Document 02/07/19 05:58 [id number] (Rec: 02/07/19 05:59 [id number] MED-M19) Document 02/07/19 14:00 [id number] (Rec: 02/07/19 15:25 [id number] MED-C11) Document 02/07/19 22:00 [id number] (Rec: 02/07/19 22:30 [id number] MED-C07) Document 02/08/19 05:49 [id number] (Rec: 02/08/19 05:50 [id number] MED-C09) Document 02/08/19 13:14 [id number] (Rec: 02/08/19 13:14 [id number] MED-C11) Document 02/08/19 22:00 [id number] (Rec: 02/09/19 00:01 [id number] [facility]-C33) Document 02/09/19 05:36 [id number] (Rec: 02/09/19 05:37 [id number] MED-C07) - Physical Exam General: No Cyanosis, No Anemia, No Jaundice, No Clubbing Lungs and Chest: Yes: Chest Expansion Full, Chest Expansion Symetrica, Percussion Note Resonant, Vessicular Breath Sounds. No: Crackles, Wheezes Heart Rate and Rhythm: Regular JVP: Not Elevated Additional Cardiovascular: Yes: Normal Heart Sounds. No: Heart Murmur, Pedal Edema Abdominal Exam: Yes: Soft, Bowel Sounds Present. No: Distention, Abdominal Tenderness Results - Results Lab Results: Laboratory Results - last 24 hr 02/08/19 02/08/19 02/08/19 09:36 11:59 16:33 WBC RBC Hgb Hct MCV MCH MCHC RDW Plt Count MPV Neut % (Auto) Lymph % (Auto) Forest % (Auto) Eos % (Auto) Baso % (Auto) Absolute Neuts (auto) Absolute Lymphs (auto) Absolute Monos (auto) Absolute Eos (auto) Absolute Basos (auto) Absolute Nucleated RBC Nucleated RBC % Sodium Potassium Chloride Carbon Dioxide Anion Gap BUN Creatinine Est GFR ( Amer) Est GFR (Non-Af Amer) BUN/Creatinine Ratio Glucose POC Glucose (mg/dL) 140 H 155 H 162 H Glucose Meter Confirm Calcium 02/08/19 02/08/19 02/09/19 21:51 23:08 05:00 WBC 8.3 RBC 3.85 L Hgb 11.6 L Hct 34 L MCV 89 MCH 30 MCHC 34 RDW 15 Plt Count 214 MPV 8.7 Neut % (Auto) 68.5 Lymph % (Auto) 18.9 Forest % (Auto) 8.9 Eos % (Auto) 3.4 Baso % (Auto) 0.3 Absolute Neuts (auto) 5.7 Absolute Lymphs (auto) 1.6 Absolute Monos (auto) 0.7 Absolute Eos (auto) 0.3 Absolute Basos (auto) 0.0 Absolute Nucleated RBC 0.0 Nucleated RBC % 0.0 Sodium Potassium Chloride Carbon Dioxide Anion Gap BUN Creatinine Est GFR ( Amer) Est GFR (Non-Af Amer) BUN/Creatinine Ratio Glucose POC Glucose (mg/dL) 437 H* Glucose Meter Confirm 393 H Calcium 02/09/19 02/09/19 05:00 07:54 WBC RBC Hgb Hct MCV MCH MCHC RDW Plt Count MPV Neut % (Auto) Lymph % (Auto) Forest % (Auto) Eos % (Auto) Baso % (Auto) Absolute Neuts (auto) Absolute Lymphs (auto) Absolute Monos (auto) Absolute Eos (auto) Absolute Basos (auto) Absolute Nucleated RBC Nucleated RBC % Sodium 137 Potassium 3.9 Chloride 107 Carbon Dioxide 24 Anion Gap 6 BUN 12 Creatinine 1.01 Est GFR ( Amer) 86.0 Est GFR (Non-Af Amer) 71.1 BUN/Creatinine Ratio 11.9 Glucose 353 H POC Glucose (mg/dL) 287 H Glucose Meter Confirm Calcium 8.4 L Assessment - Problem List Assessment: Patient Problems Decubitus ulcer of buttock, stage 2 (Acute) Lower GI bleed (Acute) Villous adenoma of rectum (Acute) BPH (benign prostatic hyperplasia) (Chronic) Cardiac pacemaker (Chronic) Hypercholesteremia (Chronic) Left knee pain (Chronic) Obesities, morbid (Chronic) Pulmonary nodule less than 6 cm determined by computed tomography of lung ( Chronic) Spinal stenosis at L4-L5 level (Chronic) 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 GI hemorrhage - no further blood loss 2. Rectal mass - colonoscopy performed. No other major masses. I spoke with Dr. Henning. * for CT scan with contrast thorax/abdomen and pelvis * Possible rigid sigmoidoscope ? resection vs laparotomy * obtain images from [facility] of CT scan 3. T2D uncontrolled - increase NPH to 25 units Q8hr I discussed with Kolton Zamorano and Terrell Zamorano and they agree with plan
[2019-02-09] MEDS ORDERED: Iodixanol* (CONTRAST) 320 MG/ML 100 ML SDV IV ONE (09:09)
--- NOTE | 2019-02-09 09:25 | PN ---
Progress Note - Progress Note Date of Service: 02/09/19 SOAP: Subjective: Did well overnight No bleeding No abdominal pain Objective: Temp Pulse Resp BP Pulse Ox 98.1 F 87 16 108/57 98 02/09/19 07:15 02/09/19 07:15 02/09/19 07:15 02/09/19 07:15 02/09/19 07:15 PEX: Comfortable Lungs are clear Abd is soft and non-distended. Bowel sounds present, no tenderness Laboratory Results - last 24 hr 02/08/19 02/08/19 02/08/19 09:36 11:59 16:33 WBC RBC Hgb Hct MCV MCH MCHC RDW Plt Count MPV Neut % (Auto) Lymph % (Auto) Vance % (Auto) Eos % (Auto) Baso % (Auto) Absolute Neuts (auto) Absolute Lymphs (auto) Absolute Monos (auto) Absolute Eos (auto) Absolute Basos (auto) Absolute Nucleated RBC Nucleated RBC % Sodium Potassium Chloride Carbon Dioxide Anion Gap BUN Creatinine Est GFR ( Amer) Est GFR (Non-Af Amer) BUN/Creatinine Ratio Glucose POC Glucose (mg/dL) 140 H 155 H 162 H Glucose Meter Confirm Calcium 02/08/19 02/08/19 02/09/19 21:51 23:08 05:00 WBC 8.3 RBC 3.85 L Hgb 11.6 L Hct 34 L MCV 89 MCH 30 MCHC 34 RDW 15 Plt Count 214 MPV 8.7 Neut % (Auto) 68.5 Lymph % (Auto) 18.9 Vance % (Auto) 8.9 Eos % (Auto) 3.4 Baso % (Auto) 0.3 Absolute Neuts (auto) 5.7 Absolute Lymphs (auto) 1.6 Absolute Monos (auto) 0.7 Absolute Eos (auto) 0.3 Absolute Basos (auto) 0.0 Absolute Nucleated RBC 0.0 Nucleated RBC % 0.0 Sodium Potassium Chloride Carbon Dioxide Anion Gap BUN Creatinine Est GFR ( Amer) Est GFR (Non-Af Amer) BUN/Creatinine Ratio Glucose POC Glucose (mg/dL) 437 H* Glucose Meter Confirm 393 H Calcium 02/09/19 02/09/19 05:00 07:54 WBC RBC Hgb Hct MCV MCH MCHC RDW Plt Count MPV Neut % (Auto) Lymph % (Auto) Vance % (Auto) Eos % (Auto) Baso % (Auto) Absolute Neuts (auto) Absolute Lymphs (auto) Absolute Monos (auto) Absolute Eos (auto) Absolute Basos (auto) Absolute Nucleated RBC Nucleated RBC % Sodium 137 Potassium 3.9 Chloride 107 Carbon Dioxide 24 Anion Gap 6 BUN 12 Creatinine 1.01 Est GFR ( Amer) 86.0 Est GFR (Non-Af Amer) 71.1 BUN/Creatinine Ratio 11.9 Glucose 353 H POC Glucose (mg/dL) 287 H Glucose Meter Confirm Calcium 8.4 L Assessment: Rectal polyp-?? exact location--see dictated consult note Rectal bleeding-stopped, H/H stable Plan: D/W patient, his and Dr. Arevalo--it is very important in this situation to discern exactly where rectal polyp is located to plan appropriate excisional procedure (possible transanal resection v formal abdominal resection). Therefore, I will perform rigid sigmoidoscopy this morning to further evaluate, hopefully prep will be adequate to at least visualize distance from anal verge. Procedure discussed with patient-risks of, but not limited to of bleeding, infection, discomfort, perforation all discussed. He will also have CT scan of chest/abdomen/pelvis today for follow up.
[2019-02-09] MEDS: Metoprolol Succinate XL TAB* 25 MG PO SCH (09:26)
[2019-02-09] MEDS: Ramipril CAP* 5 MG PO SCH (09:26)
[2019-02-09] MEDS: Aspirin 81 mg CHEW TAB* 81 MG TAB.CHEW PO SCH (09:26)
[2019-02-09] MEDS: Furosemide TAB* 40 MG PO SCH ×2 (09:26→21:41)
--- NOTE | 2019-02-09 11:06 | BRIEFOPN ---
Brief Operative Note - Surgery Procedures: Procedures PROCEDURE NOTE Pre-Op: Rectal polyp Post-Op: Rectal polyp at 15 cms-distal extension at this level Procedure: Rigid sigmoidoscopy Surgeon: MD Juvencio Asst: None Anes: none EBL:None Specimen: None Findings: Multilobulated polyp approximately 1/3 of rectal circumference with lower border approximately 15 cms from the anal verge. No hemorrhage. Pt tolerated procedure well
--- NOTE | 2019-02-09 13:04 | OP ---
CC: Dr. Roque Arevalo * DATE OF OPERATION: 02/09/19 - ROOM #413 DATE OF : 36 SURGEON: Flavio Henning MD DRAFTER PLUMBING: None. ANESTHESIA: None. PRE-OP DIAGNOSIS: Rectal polyp. POST-OP DIAGNOSIS: Rectal polyp, large rectal polyp noted at 15 cm from the anal verge. OPERATIVE PROCEDURE: Rigid sigmoidoscopy. ESTIMATED BLOOD LOSS: None. SPECIMENS: None. DRAINS: None. COMPLICATIONS: None. FINDINGS: Large tubulovillous appearing polyp incorporating about a third of the lateral and anterior wall of the rectum. Its inferior margin was approximately 15 cm from the anal verge. BRIEF HISTORY: Mr. Zamorano is an 78-year-old gentleman who has multiple medical issues, who is noted to have a possible mass on a CT scan done at the rectosigmoid junction in the spring. He has undergone a colonoscopy which is biopsied. It showed fragments of tubulovillous adenoma. He yesterday underwent a flexible colonoscopy to evaluate the remainder of the colon and had several benign polyps removed. He is now to undergo a rigid sigmoidoscopy to evaluate the location of the rectal polyp. DESCRIPTION OF PROCEDURE: Written informed consent was obtained. The risks of bleeding, infection, discomfort, and perforation were all explained. Time-out verification was completed. The patient was placed in left lateral decubitus position. Digital rectal exam was performed, which showed normal tone with no evidence of mass or blood. The rigid sigmoidoscope was then inserted into the anal canal and the rectal vault was insufflated. The scope was passed without difficulty. At about 15 cm , there was inferior portion of a rather large multilobulated irregular polyp, which incorporated about a third of the rectal circumference. This was nonbleeding. This appeared to be along the lateral and more anterior wall of the rectum. It was difficult to determine the more superior border of the polyp. With these findings in mind, it appeared to be approximately 15 cm from the anal verge. The endoscope was withdrawn. Air was evacuated. The patient tolerated the procedure well. [id number]/[facility] #: [id number] [facility]
--- NOTE | 2019-02-09 17:31 | CONSULT ---
Subjective Date of Service: 02/09/19 Interval History: Mr. 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 He presented to the hospital with a wounds to the left anterior luciano and to bilateral buttocks. He reports that the wound to his left luciano has been there for 2-3 weeks. He has been using a bandage on the wound. Patient seen and examined at bedside. Family History: Unchanged from Admission Social History: Unchanged from Admission Past Medical History: Unchanged from Admission Review of Systems - Measurements Intake and Output: Intake and Output Last 24 Hours 02/07/19 02/08/19 02/09/19 02/10/19 06:59 06:59 06:59 06:59 Intake Total 6688 4683 966 1060 Output Total 1 250 Balance 6687 4683 966 810 Intake: IV Fluids 2168 2595 966 D5W 1/2 NS 2168 2595 966 KCL 0 IVPB 198 KCL 198 Oral 4520 1890 0 1060 Output: Urine 1 250 Other: Estimated Void Medium Medium Large Date of Last Bowel 02/07/19 Movement # Bowel Movements 3 0 0 Estimated Stool Amount Medium Large # Voids 3 1 1 - Review of Systems Constitutional Symptoms: Negative: Fever, Other - Chills Dermatology: Positive: Other - Wound to left luciano Endocrinology: Positive: Obesity, Diabetes Mellitus Objective Active Medications: Acetaminophen (Tylenol Tab*) 650 mg PO Q4H PRN Reason: PAIN Albuterol (Ventolin Hfa Inhaler*) 2 puff INH Q6H PRN Reason: SOB/WHEEZING Aspirin (Aspirin 81 Mg Chew Tab*) 162 mg PO DAILY [facility] Atorvastatin Calcium (Lipitor*) 20 mg PO BEDTIME [facility] Dextrose (Dextrose 50% Vial 50 Ml*) 25 ml IV PUSH .FOR FS < 60 - SS PRN Reason : FS < 60 Furosemide (Lasix Tab*) 40 mg PO BID [facility] Insulin Human Lispro (Humalog*) 0 units SUBCUT ACHS [facility]; Protocol Insulin Human NPH (Insulin Nph(*)) 25 units SUBCUT Q8HR [facility] Metoprolol Succinate (Toprol Xl Tab*) 25 mg PO DAILY [facility] Ondansetron HCl (Zofran Inj*) 4 mg IV Q6H PRN Reason: NAUSEA Ramipril (Altace Cap*) 5 mg PO DAILY [facility] Vital Signs - 8 hr 02/09/19 02/09/19 11:15 15:15 Temperature 97.3 F 98.1 F Pulse Rate 86 71 Respiratory 16 18 Rate Blood Pressure 94/52 106/54 (mmHg) O2 Sat by Pulse 98 100 Oximetry Oxygen Devices in Use Now: None Appearance: NAD, laying in bed Ears/Nose/Mouth/Throat: Mucous Membranes Moist Respiratory: Symmetrical Chest Expansion and Respiratory Effort Extremities: - - 1+ left DP Skin: - - See skin note below Neurological: Alert and Oriented x 3 Nutrition: Taking PO's Result Diagrams: 02/11/19 06:05 02/11/19 06:05 Additional Lab and Data: Above labs were pulled into the note, when the note was edited prior to signing the note on a later date. See below for labs from the day of consultation. Laboratory Tests 02/03/19 02/09/19 02/09/19 20:30 05:00 05:00 WBC 8.3 Hgb 11.6 L MCV 89 Plt Count 214 Sodium 137 Potassium 3.9 Chloride 107 Carbon Dioxide 24 BUN 12 Creatinine 1.01 Glucose 353 H Total Protein 7.2 Albumin 3.5 Diagnostic Imaging: Exam Date: 04/18/17 - VL ANK/BRACHIAL INDICES Ankle-brachial indices: Right: Value (SBP) Index Brachial: 124 Posterior tibialis: 146 1.18 Dorsalis pedis: 159 1.28 Left: Value (SBP) Index Brachial: 123 Posterior tibialis: 146 1.18 Dorsalis pedis: 163 1.31 Doppler waveforms (acquired at rest): In the interrogated lower extremity arteries, Doppler waveforms are triphasic in all distributions. Volume pulse recordings (acquired at rest): Volume pulse recordings, measured at the bilateral ankles, are symmetric. IMPRESSION: No evidence of claudication or significant arterial insufficieny by vascular ultrasound SKYLAR standards. Skin Deviation Note - Skin Deviation Findings Left lateral lower leg - There is a superficial wound that measures 1.2 cm x 1.4 cm x 0.1 cm. The wound base is pink granulation tissue. The surrounding skin is intact. There is no drainage noted. Right buttock - There is a superficial wound, open area measures 0.5 cm x 0.5 cm x 0.1 cm. The area surrounding the wound is closed but discolored, measures1.5 cm x 1 cm. The wound base to the open area is pink granulation tissue. The surrounding skin is intact. There is no drainage noted. Wound Problem/Plan Mr. 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 He presented to the hospital with a wounds to the left anterior luciano and to bilateral buttocks. He reports that the wound to his left luciano has been there for 2-3 weeks. 1. Wound to left anterior luciano. There is a superficial wound. Patient reports that this has bee present for 2-3 week. Continue to use a border foam gauze to the area, changing every 3 days. ABIs completed in 2017 and were normal, consider getting updated ABIs. Consider referral to the wound clinic after discharge or followup with facility wound care provider after discharge. 2. Shearing injury to buttocks. There is a superficial open area. Recommend applying barrier cream to the buttocks. Frequent turning and repositioning. Use a lifting device while in bed to decrease friction with moving. Consider obtaining a prealbumin level to evaluate nutritional status. 3. DM2 with diabetic peripheral neuropathy. HgA1C was 7.3 in 08/2017. Consider rechecking if not done recently. Maintain good glycemic control to allow for wound healing. 4. Obesity. BMI ~30. 5. Diet. Regular. 6. Code Status. Full Code Status. Is Patient a Wound Clinic Patient: No Status and Disposition: Inpatient. Disposition per primary medicine team. Counseling and/or Coordination of Care Minutes: 20 Points of Discussion: TIME SPENT: Time for this wound consultation was 20 minutes and 10 minutes was spent with the patient discussing past medical history; assessing, measuring, and photographing the wounds. Attending: Aster Krause
[2019-02-09] MEDS: Atorvastatin* 20 MG TAB PO SCH (21:41)
[2019-02-10 05:52] LABS: ABS Basophils 0.1 10^3/ul (0-0.2); ABS Eosinophils 0.3 10^3/ul (0-0.6); ABS Lymphocytes 1.7 10^3/ul (1.0-4.8); ABS Monocytes 0.8 10^3/ul (0-0.8); ABS Neutrophils 8.3 10^3/ul (1.5-7.7); Eosinophil % 2.5 %; Hematocrit 35 % (42-52); Hemoglobin 11.4 g/dL (14.0-18.0); Lymphocyte % 15.2 %; Mean Corpuscular HGB Conc 33 g/dL (31-36); Mean Corpuscular Hemoglobin 29 pg (27-31); Mean Corpuscular Volume 89 fL (80-94); Mean Platelet Volume 8.2 fL (7.4-10.4); Platelet Count 219 10^3/uL (150-450); Red Blood Count 3.91 10^6 /uL (4.18-5.48); Red Cell Distribution Width 15 % (10-15); White Blood Count 11.2 10^3/uL (3.5-10.8)
[2019-02-10 06:05] LABS: BUN/Creatinine Ratio 12.6 (8-20); Calcium 8.7 mg/dL (8.6-10.3); EGFR African American 84.1 (>60); EGFR Non-African American 69.5 (>60); Potassium 3.4 mmol/L (3.5-5.0)
[2019-02-10] MEDS: Insulin NPH(*) 1 UNITS UNIT SUBCUT SCH ×3 (06:49→20:46)
--- NOTE | 2019-02-10 08:58 | PN ---
Subjective - Subjective Reason for Note: Progress Note History: He is feeling well and has had no further blood in his stool. He tolerated the rigid sigmoidoscopy yesterday. His glycemic control has improved. 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) Z95.3 Type 2 diabetes mellitus with hyperglycemia (Chronic) E11.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 with neurological manifestations, uncontrolled (Chronic ) E11.49, E11.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, uncontrolled, with renal complications (Chronic) E11.29, E11.65 Weakness of both legs (Chronic) R29.898 Current Medications: Current Medications Acetaminophen (Tylenol Tab*) 650 mg PO Q4H PRN PRN Reason: PAIN Albuterol (Ventolin Hfa Inhaler*) 2 puff INH Q6H PRN PRN Reason: SOB/WHEEZING Aspirin (Aspirin 81 Mg Chew Tab*) 162 mg PO DAILY [facility] Last Admin: 02/09/19 09:26 Dose: 162 mg Atorvastatin Calcium (Lipitor*) 20 mg PO BEDTIME [facility] Last Admin: 02/09/19 21:41 Dose: 20 mg Dextrose (Dextrose 50% Vial 50 Ml*) 25 ml IV PUSH .FOR FS < 60 - SS PRN PRN Reason: FS < 60 Last Admin: 02/08/19 08:51 Dose: 25 ml Furosemide (Lasix Tab*) 40 mg PO BID [facility] Last Admin: 02/09/19 21:41 Dose: 40 mg Insulin Human Lispro (Humalog*) 0 units SUBCUT ACHS [facility]; Protocol Last Admin: 02/09/19 21:42 Dose: 12 units Insulin Human NPH (Insulin Nph(*)) 25 units SUBCUT Q8HR [facility] Last Admin: 02/10/19 06:49 Dose: 25 units Metoprolol Succinate (Toprol Xl Tab*) 25 mg PO DAILY [facility] Last Admin: 02/09/19 09:26 Dose: 25 mg Ondansetron HCl (Zofran Inj*) 4 mg IV Q6H PRN PRN Reason: NAUSEA Ramipril (Altace Cap*) 5 mg PO DAILY [facility] Last Admin: 02/09/19 09:26 Dose: 5 mg Home Medications: Home Medications Medication Instructions Recorded Confirmed Type Aspirin EC TAB* [Ecotrin EC Low 81 mg PO DAILY 02/07/16 02/03/19 History Dose 81 MG*] Simvastatin [Zocor 40 MG (NF)] 40 mg PO BEDTIME 02/07/16 02/03/19 History Insulin ISOPH/REG 70/30 (*) 30 units SUBCUT AC MDD 200 units 11/09/18 02/03/19 History [HumuLIN 70/30 (*)] Metoprolol Succinate XL TAB* 25 mg PO DAILY 11/09/18 02/03/19 History [Toprol XL TAB*] Albuterol HFA INHALER* [Ventolin 2 puff INH Q6HR PRN 11/11/18 02/03/19 History HFA Inhaler*] Furosemide TAB* [Lasix TAB*] 40 mg PO BID 11/11/18 02/03/19 History Liraglutide (NF) [Victoza (NF)] 1.8 mg SUBCUT DAILY 11/11/18 02/03/19 History Ramipril CAP* [Altace CAP*] 5 mg PO DAILY 11/11/18 02/03/19 History Clopidogrel Bisulfate [Plavix] 75 mg PO DAILY 02/03/19 02/03/19 History Ferrous Sulfate 325 mg PO DAILY 02/03/19 02/03/19 History Melatonin [Meladox] 3 mg PO BEDTIME 02/03/19 02/03/19 History Allergies: Allergies Allergy/AdvReac Type Severity Reaction Status Date / Time sulfamethoxazole Allergy Intermediate See Comment Verified 11/11/18 15:05 [From Bactrim] trimethoprim [From Bactrim] Allergy Intermediate See Comment Verified 11/11/18 15:05 Objective - Vital Signs Vital Signs: Vital Signs 02/09/19 02/09/1919 11:15 15:15 19:15 Temperature 97.3 F 98.1 F 98.2 F Pulse Rate 86 71 72 Respiratory 16 18 20 Rate Blood Pressure 94/52 106/54 109/80 (mmHg) O2 Sat by Pulse 98 100 99 Oximetry 02/09/19 02/09/19 02/09/19 19:45 20:00 23:15 Temperature 97.9 F Pulse Rate 74 Respiratory 20 16 18 Rate Blood Pressure 97/46 (mmHg) O2 Sat by Pulse 98 Oximetry 02/10/19 02/10/19 03:15 07:15 Temperature 97.8 F 98.5 F Pulse Rate 78 79 Respiratory 16 16 Rate Blood Pressure 100/50 99/58 (mmHg) O2 Sat by Pulse 99 98 Oximetry - Intake and Output Intake and Output: Intake & Output 02/07/19 02/08/19 02/09/19 02/10/19 11:59 11:59 11:59 11:59 Intake Total 7448 3803 1066 1160 Output Total 1 750 Balance 7447 3803 1066 410 Intake: IV Fluids 2618 2145 966 0 D5W 1/2 NS 2618 2145 966 KCL 0 0 IVPB 198 KCL 198 Oral 4830 1024 306 1180 Output: Urine 1 750 Other: Estimated Void Medium Medium Large Large Date of Last Bowel 02/07/19 Movement # Bowel Movements 3 0 0 0 Estimated Stool Amount Medium Large # Voids 3 1 1 1 ADLs: Meal Record Start: 02/03/19 23: 53 Freq: DAILY@0900,1400,1800 Status: Active Protocol: Created 02/03/19 23:53 System (Rec: 02/03/19 23:53 System MED-C07) Document 02/04/19 09:00 [id number] (Rec: 02/04/19 09:56 [id number] MED-C09) Document 02/04/19 14:00 [id number] (Rec: 02/04/19 14:05 [id number] MED-C11) Document 02/04/19 18:51 [id number] (Rec: 02/04/19 18:51 [id number] MED-C09) Document 02/05/19 09:00 [id number] (Rec: 02/05/19 09:41 [id number] MED-C14) Document 02/05/19 14:00 [id number] (Rec: 02/05/19 16:17 [id number] MED-C09) Document 02/05/19 18:00 [id number] (Rec: 02/05/19 18:17 [id number] MED-C09) Document 02/06/19 09:00 [id number] (Rec: 02/06/19 10:48 [id number] MED-C11) Document 02/06/19 13:34 [id number] (Rec: 02/06/19 13:35 [id number] MED-C11) Document 02/06/19 18:00 [id number] (Rec: 02/06/19 18:56 [id number] MED-C11) Document 02/07/19 09:00 [id number] (Rec: 02/07/19 10:20 [id number] MED-C11) Document 02/07/19 14:00 [id number] (Rec: 02/07/19 15:23 [id number] MED-C11) Document 02/07/19 18:00 [id number] (Rec: 02/07/19 20:50 [id number] MED-C07) Document 02/08/19 08:46 [id number] (Rec: 02/08/19 08:46 XWH0006 MED-C09) Document 02/08/19 13:14 [id number] (Rec: 02/08/19 13:14 [id number] MED-C11) Document 02/08/19 18:00 [id number] (Rec: 02/08/19 19:07 [id number] MED-C09) Document 02/09/19 09:00 [id number] (Rec: 02/09/19 09:11 [id number] MED-C11) Document 02/09/19 13:27 [id number] (Rec: 02/09/19 13:27 PQK2205 MED-C09) Document 02/09/19 18:00 [id number] (Rec: 02/09/19 21:03 [id number] MED-C07) Intake and Output Start: 02/03/19 20: 08 Freq: Status: Active Protocol: Created 02/03/19 20:08 System (Rec: 02/03/19 20:08 System [id number]) Intake and Output Start: 02/03/19 23: 53 Freq: DAILY@0600,1400,2200 Status: Active Protocol: Created 02/03/19 23:53 System (Rec: 02/03/19 23:53 System MED-C07) Document 02/04/19 05:45 [id number] (Rec: 02/04/19 05:48 [id number] MED-C14) Document 02/04/19 12:50 [id number] (Rec: 02/04/19 12:50 [id number] MED-C09) Document 02/04/19 14:00 [id number] (Rec: 02/04/19 14:06 [id number] MED-C11) Document 02/05/19 05:28 [id number] (Rec: 02/05/19 05:29 [id number] MED-C04) Document 02/05/19 14:00 [id number] (Rec: 02/05/19 16:20 [id number] MED-C09) Document 02/05/19 22:00 [id number] (Rec: 02/05/19 22:17 [id number] MED-C26) Document 02/06/19 06:00 [id number] (Rec: 02/06/19 06:13 [id number] MED-C09) Document 02/06/19 14:00 [id number] (Rec: 02/06/19 14:18 [id number] MED-C11) Document 02/06/19 21:55 [id number] (Rec: 02/06/19 21:57 [id number] MED-C11) Document 02/07/19 05:56 [id number] (Rec: 02/07/19 05:58 UOB0719 MED-C09) Document 02/07/19 05:58 [id number] (Rec: 02/07/19 05:59 [id number] MED-M19) Document 02/07/19 14:00 [id number] (Rec: 02/07/19 15:25 [id number] MED-C11) Document 02/07/19 22:00 [id number] (Rec: 02/07/19 22:30 RZV5255 MED-C07) Document 02/08/19 05:49 [id number] (Rec: 02/08/19 05:50 [id number] MED-C09) Document 02/08/19 13:14 [id number] (Rec: 02/08/19 13:14 SHW0120 MED-C11) Document 02/08/19 22:00 FCT0577 (Rec: 02/09/19 00:01 UKT0208 TELE-C33) Document 02/09/19 05:36 [id number] (Rec: 02/09/19 05:37 [id number] MED-C07) Document 02/09/19 13:31 [id number] (Rec: 02/09/19 13:31 [id number] MED-C09) Document 02/09/19 13:46 [id number] (Rec: 02/09/19 13:47 [id number] MED-C11) Document 02/09/19 21:47 [id number] (Rec: 02/09/19 21:50 [id number] MED-C07) Document 02/10/19 06:00 [id number] (Rec: 02/10/19 06:36 [id number] MED-C11) - Physical Exam General: No Cyanosis, No Anemia, No Jaundice, No Clubbing Lungs and Chest: Yes: Chest Expansion Full, Chest Expansion Symetrica, Percussion Note Resonant, Vessicular Breath Sounds. No: Crackles, Wheezes Heart Rate and Rhythm: Regular Additional Cardiovascular: Yes: Normal Heart Sounds. No: Heart Murmur, Pedal Edema Abdominal Exam: Yes: Soft, Bowel Sounds Present. No: Distention, Abdominal Tenderness Results - Results Lab Results: Laboratory Results - last 24 hr 02/09/19 02/09/19 02/09/19 11:58 18:09 19:57 WBC RBC Hgb Hct MCV MCH MCHC RDW Plt Count MPV Neut % (Auto) Lymph % (Auto) Mcleod % (Auto) Eos % (Auto) Baso % (Auto) Absolute Neuts (auto) Absolute Lymphs (auto) Absolute Monos (auto) Absolute Eos (auto) Absolute Basos (auto) Absolute Nucleated RBC Nucleated RBC % Sodium Potassium Chloride Carbon Dioxide Anion Gap BUN Creatinine Est GFR ( Amer) Est GFR (Non-Af Amer) BUN/Creatinine Ratio Glucose POC Glucose (mg/dL) 260 H 188 H 239 H Calcium 02/10/19 02/10/19 02/10/19 05:41 05:41 07:49 WBC 11.2 H RBC 3.91 L Hgb 11.4 L Hct 35 L MCV 89 MCH 29 MCHC 33 RDW 15 Plt Count 219 MPV 8.2 Neut % (Auto) 74.4 Lymph % (Auto) 15.2 Mcleod % (Auto) 7.5 Eos % (Auto) 2.5 Baso % (Auto) 0.4 Absolute Neuts (auto) 8.3 H Absolute Lymphs (auto) 1.7 Absolute Monos (auto) 0.8 Absolute Eos (auto) 0.3 Absolute Basos (auto) 0.1 Absolute Nucleated RBC 0.0 Nucleated RBC % 0.0 Sodium 136 Potassium 3.4 L Chloride 103 Carbon Dioxide 26 Anion Gap 7 BUN 13 Creatinine 1.03 Est GFR ( Amer) 84.1 Est GFR (Non-Af Amer) 69.5 BUN/Creatinine Ratio 12.6 Glucose 164 H POC Glucose (mg/dL) 165 H Calcium 8.7 Assessment - Problem List Assessment: Patient Problems Decubitus ulcer of buttock, stage 2 (Acute) Lower GI bleed (Acute) Villous adenoma of rectum (Acute) BPH (benign prostatic hyperplasia) (Chronic) Cardiac pacemaker (Chronic) Hypercholesteremia (Chronic) Left knee pain (Chronic) Obesities, morbid (Chronic) Pulmonary nodule less than 6 cm determined by computed tomography of lung ( Chronic) Spinal stenosis at L4-L5 level (Chronic) Status post implantation of mitral valve leaflet clip (Chronic) Status post transcatheter aortic valve replacement (TAVR) using bioprosthesis ( Chronic) Type 2 diabetes mellitus with hyperglycemia (Chronic) Type 2 diabetes mellitus with neurological manifestations, uncontrolled (Chronic ) Type 2 diabetes mellitus, uncontrolled, with renal complications (Chronic) Weakness of both legs (Chronic) Atrial septal defect (Chronic) Left ventricular hypertrophy (Chronic) Uncontrolled type 2 diabetes circulatory disorder erectile dysfunction (Chronic) Plan: Lower GI bleed (Acute) Villous adenoma of rectum (Acute) He has had no clinical evidence of recurrent bleeding - his CBC is stable. I reviewed the CT chest abdomen and pelvis (not yet reported) with a radiologist. There is a mediastinal subcarinal lymph node, but no particular suspicion of metastasis. The mass is present in his rectum. There is no evidence of any stranding or abdominal/hepatic adenopathy. I discussed the case with Dr. Henning. I will obtain a cardiac risk assessment for surgery. He will then return to [facility] and will return for elective laparoscopic rectal tumor resection with re- anastamosis of bowel. 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 I have asked Dr. Ernandez to evaluate him for cardiac risk prior to surgery. He is now on aspirin as opposed to clopidogrel Type 2 diabetes mellitus with hyperglycemia (Chronic) improved control Secondary diagnoses BPH (benign prostatic hyperplasia) (Chronic) Cardiac pacemaker (Chronic) Hypercholesteremia (Chronic) Decubitus ulcer of buttock, stage 2 (Acute) Left knee pain (Chronic) Obesities, morbid (Chronic) Pulmonary nodule less than 6 cm determined by computed tomography of lung ( Chronic) Spinal stenosis at L4-L5 level (Chronic)= Type 2 diabetes mellitus with neurological manifestations, uncontrolled (Chronic ) Type 2 diabetes mellitus, uncontrolled, with renal complications (Chronic) Weakness of both legs (Chronic) Atrial septal defect (Chronic) Left ventricular hypertrophy (Chronic) Uncontrolled type 2 diabetes circulatory disorder erectile dysfunction (Chronic) I discussed the above with [place] and Khari Zamorano and they agree with the management plan.
[2019-02-10] MEDS: Ramipril CAP* 5 MG PO SCH (09:50)
[2019-02-10] MEDS: Aspirin 81 mg CHEW TAB* 81 MG TAB.CHEW PO SCH (09:50)
[2019-02-10] MEDS: Insulin LISPRO* 1 UNITS UNIT SUBCUT SCH ×4 (09:50→20:46)
[2019-02-10] MEDS: Furosemide TAB* 40 MG PO SCH ×2 (09:51→20:35)
[2019-02-10] MEDS: Metoprolol Succinate XL TAB* 25 MG PO SCH (10:21)
[2019-02-10] MEDS ORDERED: Clopidogrel TAB* 300 MG PO ONE ×2 (14:53→15:06)
[2019-02-10] MEDS ORDERED: Potassium Chloride* LIQUID 20 MEQ/15 ML UDC PO ONE (14:54)
--- NOTE | 2019-02-10 16:06 | CONS ---
CONSULTATION REPORT: DATE OF CONSULT: ADDENDUM: I had the opportunity to discuss my findings with Dr. Henning, Dr. Arevalo, and Dr. Wilcox. The patient's Plavix was held at the beginning of the admission. The sigmoid lesion puts him at risk for recurrent bleeding; however , he is at increased risk for stent thrombosis given it has only been 3 months since the implantation. The risks and benefits were discussed with the providers named above as well as with the patient and his . At this time, I would recommend the followin. He is to be bolused with Plavix 600 mg now and 75 mg a day. 2. We will watch him overnight and follow thereafter for recurrent bleeding and monitor situation. 3. Ideally, we will postpone his surgery and interruption of his dual antiplatelet therapy for another 3 months for a total of 6 months after stent implantation. 4. I would continue dual antiplatelet therapy until then if feasible so that his risk for stent thrombosis would be at lower level at that time than now. 5. If he develops obstruction or recurrent bleeding, we may have to operate sooner, but this would be at higher risk. 6. He is to have his potassium supplemented. 7. He is to follow up with Dr. Inman concerning potential lead revision for his atrial lead. [id number]/[facility] #: [id number] [place]
--- NOTE | 2019-02-10 16:30 | CONS ---
ADDENDUM NOW INCLUDED ON THIS REPORT CARDIOLOGY CONSULTATION: DATE OF CONSULT: 02/10/19 REASON FOR EVALUATION: Preoperative evaluation. HISTORY OF PRESENT ILLNESS: This is a very pleasant 78-year-old gentleman, who has multiple medical problems including congestive heart failure, aortic stenosis, MR, coronary artery disease, obstructive sleep apnea, diabetes, hyperlipidemia, obesity, and back pain. He presented with progressive weakness and heart failure and a left bundle back in November. At that time, he was transferred to Dr. Jha to address his severe , MR and ischemic heart disease. At [facility], he underwent stenting to the RCA with a 3 x 2.4 Synergy drug-eluting stent. He had a TAVR with a 29-mm Cindy 3 valve and he underwent mitral valve repair for flail mitral leaflets, severe MR with a MitraClip. He also underwent AV sequential pacing for high-degree AV block and left bundle- branch block. He subsequently underwent rehab and it was felt that his atrial lead was not sensing and possibly dislodged. He also was limited by back pain, but his congestive heart failure symptoms have resolved. His fatigue has improved. His energy level is better. He has no orthopnea. He has had problems with constipation for a prolonged period of time. While he was at [facility], he was noted to have a mass in his sigmoid/rectum and the plan was to pursue outpatient evaluation. He developed bright red blood per rectum and was admitted on 02/03/19. He has been found to have suspected benign tubulovillous adenoma and is being considered for surgical resection. He had a large rectal polyp noted at 15 cm from the anal verge. He is now being considered for resection. He denies any chest pain, orthopnea, shortness of breath, fevers, chills, sweats. He does have some constipation and is on constipation medications, but he has apparently not had any obstruction. PAST MEDICAL HISTORY: Includes congestive heart failure with reduced EF; aortic stenosis, status post TAVR; MR, status post clipping; insulin-dependent diabetes; obstructive sleep apnea; diabetic neuropathy; hyperlipidemia; obesity ; rectal mass; BPH; villous adenoma of the rectum; pulmonary nodule, less than [address]; spinal stenosis, L4-L5, chronic. PAST SURGICAL HISTORY: Includes the TAVR, mitral valve clipping and pacemaker implantation in November of this year at [facility], partial toe amputation on the left foot. MEDICATIONS: Include: 1. Furosemide 40 mg b.i.d. 2. Atorvastatin 20 mg daily. 3. Lipitor 20 mg daily. 4. Insulin lispro by protocol. 5. Insulin NPH 25 units subcu. 6. Metoprolol 25 mg daily. 7. Ramipril 5 mg daily. ALLERGIES: Include SULFA DRUGS. 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 He is . He is accompanied by his . He also has 2 adult daughters. family hx; noncontributory. Ros: neg x 10 except as above. PHYSICAL EXAM: He is a well-developed, obese gentleman, in no apparent distress. Blood pressure 99/58, pulse 79, afebrile, O2 sat 98% on room air. No significant JVD. Carotids 2+ without bruits. No cervical adenopathy. No thyromegaly. Extraocular movements intact. Sclerae anicteric. Cardiac Exam: S1, S2 with a 2/6 systolic ejection murmur at the base. Chest was clear. Abdomen: Obese. Bowel sounds present. Right femoral bruit present. Left femoral pulse intact. Distal pulses diminished. No edema. Chronic venous stasis changes. Motor strength 4/5 in the lower extremities. Deep tendon reflexes minimal in the lower extremities, 2/4 in the upper extremities. Strength in the upper extremities is 5/5. Alert and oriented x3. DIAGNOSTIC STUDIES/LAB DATA: Labs include hematocrit 35, hemoglobin 11.4, white count 11.2, platelet count 219. Sodium 136, potassium of 3.4, BUN of 13, creatinine of 1.03. EKG from 02/05/19 is sinus rhythm with ventricular pacing. He also had an echocardiogram performed on 01/05/19, which revealed mild concentric LVH, EF of 35% to 40%, bioprosthetic aortic valve with no regurgitation, no prosthetic stenosis, mean gradient of 3.5, DI of 0.42, status post MitraClip with moderately restricted mitral valve, moderate mitral stenosis , mean gradient of 6.3, unable to estimate PA pressure. Compared to September of 2018, the EF had decreased from 45% to 50% and the AVR was new, MR was previously [id number] with a flail leaflet, the MS is new post MitraClip. He also had a pacemaker interrogation. He has a Solara Quad ANTIQUE FURNITURE REPAIRER-P biventricular pacing; however, when monitored, VT episode was longer, which was 6 minutes and 58 seconds at a maximum rate of 214 and 747 nonsustained VT episodes, most occurred on 01/02/19 and 01/03/19 during sleep. No atrial capture when programmed bipolar confirmed with programming at [facility]. He was changed from VVI to DDD and atrial sensitivity from 4.0 to 0.15 and minverva was turned off. IMPRESSION AND PLAN: My impression is that Mr. Zamorano has multiple medical issues and cardiovascular issues, but he appears improved after TAVR, mitral valve clipping and biventricular pacemaker implantation and stenting. The patient is relatively stable from a cardiovascular standpoint with reduced LV function, but is also at increased risk for CHF due to low EF and mitral stenosis. He is also at increased risk for thrombotic events, especially with interruption of his dual antiplatelet therapy. He is at increased risk for 12 months and ideally I would defer elective surgery for 12 months before interrupting his dual antiplatelet therapy. The risk is highest in the first month, the first 3 months, the first 6 months and then levels off and decreases to baseline after 12 months. He also has new prosthetic material implanted, which could be at risk for infection with bacteremia. I have discussed the case with MOUNA Mckinney of Surgery and made clear my recommendations. For the time being, I would recommend the followin. Ideally, we would defer surgery for a year before interrupting dual antiplatelet therapy. 2. If he needs to be done more urgently, it could be done on dual antiplatelet therapy if feasible from a surgical standpoint. 3. If the surgery can be deferred until 6 months after the implantation in November , then his risk would be slightly lower than now. 4. He should continue aspirin indefinitely without interruption despite the strategy taken. 5. He had a malfunctioning atrial lead, which appears to be functioning reasonably well now with the recent adjustments. I would defer whether he needs a lead repositioning to Dr. Inman. 6. I would use SBE prophylaxis given the recent implant and potential for bacteremia at surgery. As discussed with Juan Carlos, they plan on using appropriate coverage for enteric organisms at surgery. 7. I would use a magnet over his pacemaker if frequent and prolonged cautery is anticipated. 8. It appears that his Plavix has been interrupted at this point in time, which puts him at risk for stent thrombosis. We would recommend restarting Plavix at this point in time with a bolus. 9. We would try to maintain his potassium over 4 given his history of ventricular arrhythmias. ADDENDUM: I had the opportunity to discuss my findings with Dr. Henning, Dr. Arevalo, and Dr. Wilcox. The patient's Plavix was held at the beginning of the admission. The sigmoid lesion puts him at risk for recurrent bleeding; however, he is at increased risk for stent thrombosis given it has only been 3 months since the implantation. The risks and benefits were discussed with the providers named above as well as with the patient and his . At this time, I would recommend the followin. He is to be bolused with Plavix 600 mg now and 75 mg a day. 2. We will watch him overnight and follow thereafter for recurrent bleeding and monitor situation. 3. Ideally, we will postpone his surgery and interruption of his dual antiplatelet therapy for another 3 months for a total of 6 months after stent implantation. 4. I would continue dual antiplatelet therapy until then if feasible so that his risk for stent thrombosis would be at lower level at that time than now. 5. If he develops obstruction or recurrent bleeding, we may have to operate sooner, but this would be at higher risk. 6. He is to have his potassium supplemented. 7. He is to follow up with Dr. Inman concerning potential lead revision for his atrial lead. [id number] #: [id number]/CPS #: [id number] Addendum: I had the opportunity to discuss this patient's case with the patient 's interventionalist, Dr. Jha, on the evening of 02.10.19. In terms of risk/ benefit, Dr. Jha recommended proceeding with surgery as needed. He believes that the synergy stent placed in this patient could be interrupted for colon surgery at lower risk at this time postop than with standard stents. He did advise restarting the plavix as soon as feasible after surgery. The risk of proceeding with surgery at this time will need to be weighed against the risk of delaying surgery. [facility] 02.11.19 [facility]
--- NOTE | 2019-02-10 16:48 | PN ---
Progress Note - Progress Note Date of Service: 02/10/19 SOAP: Subjective: He is doing well-no further bleeding Tolerating regular diet Objective: Temp Pulse Resp BP Pulse Ox 98.5 F 79 16 99/58 98 02/10/19 07:15 02/10/19 07:15 02/10/19 07:15 02/10/19 07:15 02/10/19 07:15 Abd is soft and non-distended. No tenderness, NABS Laboratory Results - last 24 hr 02/09/19 02/09/19 02/10/19 18:09 19:57 05:41 WBC 11.2 H RBC 3.91 L Hgb 11.4 L Hct 35 L MCV 89 MCH 29 MCHC 33 RDW 15 Plt Count 219 MPV 8.2 Neut % (Auto) 74.4 Lymph % (Auto) 15.2 Garrard % (Auto) 7.5 Eos % (Auto) 2.5 Baso % (Auto) 0.4 Absolute Neuts (auto) 8.3 H Absolute Lymphs (auto) 1.7 Absolute Monos (auto) 0.8 Absolute Eos (auto) 0.3 Absolute Basos (auto) 0.1 Absolute Nucleated RBC 0.0 Nucleated RBC % 0.0 Sodium Potassium Chloride Carbon Dioxide Anion Gap BUN Creatinine Est GFR ( Amer) Est GFR (Non-Af Amer) BUN/Creatinine Ratio Glucose POC Glucose (mg/dL) 188 H 239 H Calcium 02/10/19 02/10/19 05:41 07:49 WBC RBC Hgb Hct MCV MCH MCHC RDW Plt Count MPV Neut % (Auto) Lymph % (Auto) Garrard % (Auto) Eos % (Auto) Baso % (Auto) Absolute Neuts (auto) Absolute Lymphs (auto) Absolute Monos (auto) Absolute Eos (auto) Absolute Basos (auto) Absolute Nucleated RBC Nucleated RBC % Sodium 136 Potassium 3.4 L Chloride 103 Carbon Dioxide 26 Anion Gap 7 BUN 13 Creatinine 1.03 Est GFR ( Amer) 84.1 Est GFR (Non-Af Amer) 69.5 BUN/Creatinine Ratio 12.6 Glucose 164 H POC Glucose (mg/dL) 165 H Calcium 8.7 Assessment: Rectal bleeding-ceased, H/H stable-possibly secondary to polyp. Rectal polyp-CT reviewed--mass appears at rectosigmoid colon, consistent with flex sig findings at 15 cms Multiple medical issues Plan: Case discussed at [facility]--ideal treatment option is low anterior resection with laparoscopic or robotic technique. There is no trans-anal resection possibility in this case. With the size of the polyp, despite benign biopsy results, this may be harboring a malignancy or has high risk of developing into malignancy in the next few years. Postoperative chemo probably not an option. Reviewed with Dr. Ernandez-with recent cardiac stenting it appears the most prudent and reasonable approach would be to consider surgery in 3 months (6 months since stent placement) to minimize risk of stent thrombosis (one year being even better). Even at 6 months, however, it would be necessary to stop the Plavix prior to surgery which would be against cardiology recommendations. For now Plavix is to be re-started and he should continue with his rehabilitation. If he develops bleeding or other complications of the polyp, he will require more urgent surgery and higher operative risks will need to be accepted. All discussed with patient and his .
[2019-02-10 17:17] LABS: ABS Eosinophils 0.3 10^3/ul (0-0.6); ABS Lymphocytes 1.9 10^3/ul (1.0-4.8); ABS Monocytes 0.9 10^3/ul (0-0.8); ABS Neutrophils 8.3 10^3/ul (1.5-7.7); Hematocrit 33 % (42-52); Hemoglobin 11.1 g/dL (14.0-18.0); Lymphocyte % 16.6 %; Mean Corpuscular HGB Conc 33 g/dL (31-36); Mean Corpuscular Hemoglobin 30 pg (27-31); Mean Corpuscular Volume 88 fL (80-94); Mean Platelet Volume 8.4 fL (7.4-10.4); Platelet Count 224 10^3/uL (150-450); Red Blood Count 3.76 10^6 /uL (4.18-5.48); Red Cell Distribution Width 16 % (10-15); White Blood Count 11.5 10^3/uL (3.5-10.8)
[2019-02-10] MEDS: Atorvastatin* 20 MG TAB PO SCH (20:35)
[2019-02-11] MEDS: Insulin NPH(*) 1 UNITS UNIT SUBCUT SCH (06:16)
[2019-02-11 06:23] LABS: ABS Basophils 0.1 10^3/ul (0-0.2); ABS Eosinophils 0.3 10^3/ul (0-0.6); ABS Lymphocytes 1.5 10^3/ul (1.0-4.8); ABS Monocytes 0.9 10^3/ul (0-0.8); ABS Neutrophils 6.6 10^3/ul (1.5-7.7); Eosinophil % 3.6 %; Hematocrit 35 % (42-52); Hemoglobin 11.7 g/dL (14.0-18.0); Lymphocyte % 15.9 %; Mean Corpuscular HGB Conc 33 g/dL (31-36); Mean Corpuscular Hemoglobin 29 pg (27-31); Mean Corpuscular Volume 89 fL (80-94); Mean Platelet Volume 8.4 fL (7.4-10.4); Nucleated Red Blood Cells % 0.1; Platelet Count 215 10^3/uL (150-450); Red Blood Count 3.99 10^6 /uL (4.18-5.48); Red Cell Distribution Width 16 % (10-15); White Blood Count 9.4 10^3/uL (3.5-10.8)
[2019-02-11 07:01] LABS: BUN/Creatinine Ratio 13.7 (8-20); EGFR African American 72.6 (>60); Potassium 3.7 mmol/L (3.5-5.0)
[2019-02-11] MEDS: Insulin LISPRO* 1 UNITS UNIT SUBCUT SCH (07:25)
[2019-02-11] MEDS: Metoprolol Succinate XL TAB* 25 MG PO SCH (08:15)
[2019-02-11] MEDS: Ramipril CAP* 5 MG PO SCH (08:16)
[2019-02-11] MEDS: Aspirin 81 mg CHEW TAB* 81 MG TAB.CHEW PO SCH (08:42)
[2019-02-11] MEDS: Furosemide TAB* 40 MG PO SCH (08:43)
[2019-02-11] MEDS ORDERED: Clopidogrel TAB* 75 MG PO SCH (09:00)
--- NOTE | 2019-02-11 10:50 | DS ---
Amended report to correct date of admission. CC: [facility]; Dr. Rajni Inman; [facility]; Dr. Flavio Henning* DISCHARGE SUMMARY: DATE OF ADMISSION: 02/05/19 DATE OF DISCHARGE: 02/11/19 DISCHARGE DIAGNOSES: 1. Lower gastrointestinal bleed associated with antiplatelet therapy. 2. Rectal mass. 3. Villous adenoma, ? occult malignancy, comorbidities. 4. 11/20/18 stenting right coronary artery, transcatheter aortic valve replacement, mitral valve clip procedure at [facility]. SECONDARY DIAGNOSES: 1. Small stage 2 decubitus ulcer right buttock. 2. 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 3. Benign prostatic hypertrophy. 4. Cardiac pacemaker. 5. Hypercholesterolemia. 6. Morbid obesity. 7. Spinal stenosis L4-L5. 8. Profound peripheral neuropathy from diabetes. 9. Weakness both legs. 10. Left ventricular hypertrophy. CONDITION ON THE DAY OF DISCHARGE: Fair. DISPOSITION: [facility]. HISTORY: Julia Zamorano is an 78-year-old [place] male. His presentation is documented in detail in Asia Dye DO's admitting history and physical. In short, he was at [facility] for subacute rehab and developed constipation. He passed loose stool with maroon- colored blood. Examination at admission, blood pressure 122/73, pulse 79, respirations 18, temperature 97.5, oxygen saturation 96%. Abdomen was benign. Initial labs, white count 11.5, hemoglobin 12.9, hematocrit 39, platelets 254. INR 1.03. Sodium 133, potassium 4.2, chloride 97, bicarbonate 28, BUN 26, creatinine 1.21, glucose 321, calcium 8.9, bilirubin 0.3. Normal LFTs. Initial assessment: Rectal bleeding. He was admitted for followup and evaluation of the source. Type 2 diabetes, poor control, for improvement of insulin therapy. CONSULTATIONS: 1. 02/04/19, Dr. Roque Wilcox for just Gastroenterology. Hematochezia. In view of a history of previous tubulovillous adenoma, he required another colonoscopy to see if there were any other lesions in the bowel. 2. Dr. Flavio Henning, initial consultation plus followup visits, 02/05/19, his impression: Tubulovillous polyp of the rectum. He suggested a preoperative staging protocol, which included measuring the exact distance of the tubulovillous mass from the anal margin. 3. 02/10/19, Dr. Tone Ernandez for Cardiology, his impression: He was stable from a cardiovascular point of view, but was at risk from thrombotic events particularly due to interruption of his dual antiplatelet therapy. He felt that he was at increased risk for 12 months and would like to defer surgery due to high risk to his RCA stent. He felt the first timing for this would be 6 months after the procedure. PROCEDURES: 1. 02/05/19, he had an attempted colonoscopy, too much stool. 2. 02/08/19, Dr. Parish Proctor performed a colonoscopy, which was complete to the cecum. He had 4 colorectal polyps seen, which was biopsied. The large tubulovillous adenoma was noted. 3. 02/09/19, Dr. Flavio Henning, rigid sigmoidoscopy noted that the large tubulovillous adenoma was 15 cm from the anal verge. PATHOLOGY: Fecal: Biopsy tubular adenoma: Biopsy 40 cm tubular adenoma, no high- grade dysplasia or malignancy. OTHER INVESTIGATIONS: Imaging, 02/09/19 - CT chest, abdomen, and pelvis: Rectal mass identified. There might a small adjacent lymph node in the rectal mesentry, small right pleural effusion, subcarinal adenopathy unchanged since . OTHER LABS/INVESTIGATIONS: Hemoglobin on 02/10/19 at the lowest 11.1, hematocrit 33. HOSPITAL COURSE: The patient was hemodynamically stable throughout the hospital stay. He tolerated all the procedures. He had no further bleeding. He was removed from the clopidogrel for several days leading to the acute bleed and this was reinstated on the penultimate day in the hospital. On the day of discharge, he is feeling well, has no focal symptoms. PHYSICAL EXAMINATION: Temperature 97.5, heart rate 93, respirations 16, oxygen saturation 97% on room air, blood pressure 96/46 which is fairly typical for him. No cyanosis, anemia, jaundice, clubbing, or adenopathy. He is warm and well perfused. Cardiovascular System: His pulse was regular. Normal character and volume. Venous pressure not elevated. Heart sounds are normal. No added sounds or murmurs. No pedal edema. Respiratory System: His chest was clear. Abdomen: No distention, masses, tenderness, or organomegaly. Nervous System: Alert and oriented. Skin: He has a less than 1 cm stage 2 decubitus that is healing on the right buttock. ASSESSMENT AND PLAN: 1. Gastrointestinal bleed. This is likely related to the tubulovillous adenoma and/or constipation. He has not had any further bleeding since his hospitalization and no significant loss of blood. He required no transfusion. He should have weekly CBCs on discharge. 2. Tubulovillous adenoma in the rectum. This is 15 cm from the anal margin. This is a complicated surgical decision as to the best approach in terms of resection; however, we cannot be certain there is no malignancy in this mass, but at present, there is no strong suggestion of this. We will consider the best approach and consider the surgical intervention in the near term future. 3. Right coronary artery stent. Dr. Ernandez addressed this issue. He spoke with the interventionalist at [facility] after he had dictated his consultation. Apparently, the particular stent employed has a lower risk of clotting and hence if there is a pressing need for surgery, his clopidogrel can be stopped for 5 days and restarted as soon as possible following the surgery. 4. General cardiovascular state. This was reviewed by Dr. Ernandez in his consultation note clearly since the transcatheter aortic valve replacement and the mitral valve clipping and the right coronary artery stenting. He is hemodynamically much improved and does not require any further risk stratification. 5. Right buttock decubitus ulcer. This is minor; however, he is at high risk of further worsening of this and needs constant planning and careful skin care at [facility]. 6. Cardiac pacemaker. This is functioning well. 7. Hypercholesterolemia. Continue current medication. 8. Morbid obesity. Longstanding comorbidity. 9. Type 2 diabetes mellitus, which is poorly controlled with marked insulin resistance. He will resume his previous insulin therapy. 10. Spinal stenosis, L4-L5. This is a complexity during his subacute rehabilitation. 11. Severe peripheral neuropathy as a consequence of poorly controlled type 2 diabetes mellitus. This interferes with his proprioception and makes difficult for him to rehab. 12. Weakness of both legs. This is why he is in subacute rehabilitation as he is unable to transfer independently. DISCHARGE MEDICATIONS: 1. Aspirin 81 mg daily. 2. Simvastatin 40 mg q.h.s. 3. 70/30 insulin 30 units a.c. 4. Metoprolol XL 25 mg daily. 5. Albuterol HFA inhaler 2 puffs every 6 hours as needed. 6. Ramipril 5 mg daily. 7. Furosemide 40 mg twice daily. 8. Liraglutide 1.8 mg every day. 9. Melatonin 3 mg q.h.s. 10. Clopidogrel 75 mg daily. 11. Ferrous sulfate 325 mg daily. SPECIAL CARES: Due to cultural issues, his Johnie Zamorano should be allowed to stay in the patient's room overnight. [id number]/CPS #: [id number] [id number]
[2019-02-11 11:23] VITALS: BP 98/58
== END 2019-02-11 12:05 | DRG 375 ==
LOC: ED 19:55 → MED 22:49 → OBSVTOIN 02-05 13:51
PROVIDERS: ADMIT Hospitalist; ATTEND Internal Medicine
PROC: 0DJD8ZZ Inspection of Lower Intestinal Tract, Via Natural or Artificial Opening Endoscopic (ICD-10-PCS; 2019-02-05)
PROC: 0DBQ8ZZ Excision of Anus, Via Natural or Artificial Opening Endoscopic (ICD-10-PCS; 2019-02-08)
PROC: 0DBH8ZZ Excision of Cecum, Via Natural or Artificial Opening Endoscopic (ICD-10-PCS; 2019-02-08)
PROC: 0DJD8ZZ Inspection of Lower Intestinal Tract, Via Natural or Artificial Opening Endoscopic (ICD-10-PCS; principal; 2019-02-09 09:30)
DX: D37.5 Neoplasm of uncertain behavior of rectum (principal); K92.1 Melena; I50.30 Unspecified diastolic (congestive) heart failure; D68.32 Hemorrhagic disorder due to extrinsic circulating anticoagulants; J90 Pleural effusion, not elsewhere classified; D12.0 Benign neoplasm of cecum; E78.00 Pure hypercholesterolemia, unspecified; G47.30 Sleep apnea, unspecified; M17.12 Unilateral primary osteoarthritis, left knee; G47.33 Obstructive sleep apnea (adult) (pediatric); I11.0 Hypertensive heart disease with heart failure; E78.5 Hyperlipidemia, unspecified; K59.00 Constipation, unspecified; I25.10 Atherosclerotic heart disease of native coronary artery without angina pectoris; N40.0 Benign prostatic hyperplasia without lower urinary tract symptoms; M48.061 Spinal stenosis, lumbar region without neurogenic claudication; E66.01 Morbid (severe) obesity due to excess calories; E11.49 Type 2 diabetes mellitus with other diabetic neurological complication; E11.29 Type 2 diabetes mellitus with other diabetic kidney complication; L89.312 Pressure ulcer of right buttock, stage 2; R91.1 Solitary pulmonary nodule; I44.7 Left bundle-branch block, unspecified; E11.42 Type 2 diabetes mellitus with diabetic polyneuropathy; E11.59 Type 2 diabetes mellitus with other circulatory complications; N52.1 Erectile dysfunction due to diseases classified elsewhere; E11.65 Type 2 diabetes mellitus with hyperglycemia; K62.0 Anal polyp; T45.525A Adverse effect of antithrombotic drugs, initial encounter; Z95.0 Presence of cardiac pacemaker; Z68.30 Body mass index [BMI] 30.0-30.9, adult; Z95.5 Presence of coronary angioplasty implant and graft; Z98.42 Cataract extraction status, left eye; Z98.41 Cataract extraction status, right eye; Z88.1 Allergy status to other antibiotic agents; Z82.49 Family history of ischemic heart disease and other diseases of the circulatory system; I25.2 Old myocardial infarction; Z83.3 Family history of diabetes mellitus; Z95.2 Presence of prosthetic heart valve; Y92.9 Unspecified place or not applicable; Z79.82 Long term (current) use of aspirin; Z79.02 Long term (current) use of antithrombotics/antiplatelets
CPT/HCPCS: 36415; 71260; 74177; 80048; 80053; 82947; 85014; 85018; 85025; 85027; 85610; 85730; 86850; 86900; 86901; 87641; 88305; 93005; 99156; 99157; 99283; A9270-GY; G0378; G8978-GP-CL; G8979-GP-CI; J2250; J3010; J3480; Q9967

== ENCOUNTER 2019-05-09 05:38 | Emergency (ER) | payer MEDICARE ==
--- OUTSIDE RECORDS SUMMARY | 2019-05-09 05:42 | XMS REPORT | Continuity of Care Document ---
:1940 External Reference #:[id number] Author Name Cas Khalil MD (transmitted by agent of provider Sadiq Blank) Address [address] [place] [address] Care Team Providers Name Role Phone Roque Arevalo MD - Endocrinology, Care Team Information Business Coordinator Diabetes & Metabolism Jerardo Merritt MD - Infectious Care Team Information Business Coordinator Disease Damien Jha MD - Interventional Care Team Information Business Coordinator Cardiology Problems Active Problems Provider Date Aortic valve disorder Rajni Inman M.D. Onset: 03/04/2016 Mitral valve disorder Rajni Inman M.D. Onset: 07/11/2016 Mixed hyperlipidemia Rajni Inman M.D. Onset: 02/04/2017 Chronic diastolic heart failure Rajni Inman M.D. Onset: 05/06/2017 Obstructive sleep apnea syndrome Luz Paz DNP RN, JAVON-BANDAR Onset: Hypersomnia Luz Paz DNP RN, AMILCAR Onset: 08/22/2017 Hypoxemia Luz Paz DNP RN, JAVON-BANDAR Onset: 08/22/2017 Coronary artery atheroma Rajni Inman M.D. Onset: 01/13/2018 Heart valve replacement Rajni Inman M.D. Onset: 12/11/2018 Social History Type Date Description Comments Sex Unknown Tobacco Use Start: Unknown Never Smoked Cigarettes Smoking Status Reviewed: 04/01/19 Never Smoked Cigarettes ETOH Use Denies alcohol use Tobacco Use Start: Unknown Patient has never smoked Recreational Drug Use Denies Drug Use Exercise Type/Frequency Does not exercise Allergies, Adverse Reactions, Alerts Description No Known Drug Allergies Medications Active Medications SIG Qnty Indications Ordering Date Provider Oxygen Oxygen 2 L nc with 1units Rajni Ropersher, 05/15/2017 2L Misc sleep M.D. Aspir-Low 1 by mouth every Roque Arevalo MD 01/10/2016 81mg day Tablets Metoprolol Succinate 1 tablet by mouth Roque Arevalo MD 01/10/2016 [...] Emergency use as directed Unknown 1mg Kit Ferrousul 1 tab by mouth Unknown 325(65Fe) twice a day with mg Tablets some citrus juice but not with food. Furosemide 1 by mouth every Unknown 20mg day Tablets Melatonin 1 tablet by mouth Unknown 3mg Tablets every night at bedtime. Clopidogrel Unknown Bisulfate 300mg Tablets Ramipril 1 by mouth every Unknown 5mg Capsules day Ventolin HFA 1 to 2 inhalations Unknown every 4 hours as 108(90Base) mcg/Act needed Aerosol Ondansetron HCL one by mouth every Unknown 4mg 8 hours as needed Tablets for nausea History Medications Ramipril 1 by mouth 30caps I50.42 Analia Olmstead NP 10/27/2018 - 2.5mg every day 10/27/2018 Capsules Ramipril 1 by mouth 30caps I50.42 Analia Olmstead NP 10/27/2018 - 2.5mg every day 03/21/2019 Capsules Medications Administered in Office Medication SIG Qnty Indications Ordering Provider Date Depomedrol 40MG Cas Khalil MD 01/28/2019 Injection Inj, Regadenoson, 0.1 MG Etienne Norris, DO [facility] 02/21/2016 Injection Technetium TC 99M Etienne Norris, DO [facility] 02/21/2016 Tetrofosmin, Per Unit Dose Up To 40 Millicuries Injection Technetium TC 99M Rajni Inman M.D. 02/20/2016 Tetrofosmin, Per Unit Dose Up To 40 Millicuries Injection Immunizations Description No Information Available Vital Signs Date Vital Result Comment 04/01/2019 1:02pm Height 74 inches 6'2" Weight 262.00 lb stated Heart Rate 74 /min BP Systolic 110 mmHg BP Diastolic 68 mmHg Respiratory Rate 14 /min Pain Level 0 Increases with activity BMI (Body Mass Index) 33.6 kg/m2 03/22/2019 1:37pm Weight 238.00 lb Heart Rate 78 /min BP Systolic Sitting 96 mmHg Rue reg cuff BP Diastolic Sitting 60 mmHg Rue reg cuff Respiratory Rate 13 /min Ejection Fraction 35-40% Results Test Date Facility Test Result H/L Range Note Comp Metabolic Panel 03/24/2019 [facility] Sodium 134 mmol/L Low 135-[address] [place] [address] [phone] Potassium 4.7 mmol/L Normal 3.5-5.0 Chloride 98 mmol/L Low 101-111 Co2 Carbon Dioxide 29 mmol/L Normal 22-32 Anion Gap 7 mmol/L Normal 2-11 Glucose 168 mg/dL High 70-100 Blood Urea Nitrogen 25 mg/dL High 6-24 Creatinine 1.38 mg/dL High 0.67-1.17 BUN/Creatinine Ratio 18.1 Normal 8-20 Calcium 8.9 mg/dL Normal 8.6-10.3 Total Protein 6.0 g/dL Low 6.4-8.9 Albumin 3.3 g/dL Normal 3.2-5.2 Globulin 2.7 g/dL Normal 2-4 Albumin/Globulin Ratio 1.2 Normal 1-3 Total Bilirubin 0.40 mg/dL Normal 0.2-1.0 Alkaline Phosphatase 107 U/L High 34-104 Alt 8 U/L Normal 7-52 Ast 11 U/L Low 13-39 Egfr Non- 49.6 >60 Egfr 60.0 >60 2 Lipid Profile 03/24/2019 [facility] Triglycerides 139 mg/dL 3 (Trig/Chol/HDL) [address] [place] [address] [phone] Cholesterol 132 mg/dL 4 HDL Cholesterol 32.6 mg/dL 5 LDL Cholesterol 72 mg/dL 6 Laboratory test 03/24/2019 [facility] Magnesium 1.9 mg/dL Normal 1.9-2.[address] [place] [address] [phone] B-Type Natriuretic Peptide BNP 108 pg/mL High <=100 8 Hemoglobin A1c (Glyco HGB) 8.6 % High 4.0-5.6 9 CBC Auto 02/03/2019 [facility] White Blood 11.5 10^3/uL High 3.5-10.[address] [place] [address] [phone] Red Blood Count 4.42 10^6/uL Normal 4.18-5.48 Hemoglobin 12.9 g/dL Low 14.0-18.0 Hematocrit 39 % Low 42-52 Mean Corpuscular Volume 88 fL Normal 80-94 Mean Corpuscular Hemoglobin 29 pg Normal 27-31 Mean Corpuscular HGB Conc 33 g/dL Normal 31-36 Red Cell Distribution Width 15 % Normal 10-15 Platelet Count 254 10^3/uL Normal 150-450 Mean Platelet Volume 9.2 fL Normal 7.4-10.4 Abs Neutrophils 8.3 10^3/uL High 1.5-7.7 Abs Lymphocytes 1.9 10^3/uL Normal 1.0-4.8 Abs Monocytes 0.9 10^3/uL High 0-0.8 Abs Eosinophils 0.3 10^3/uL Normal 0-0.6 Abs Basophils 0.0 10^3/uL Normal 0-0.2 Abs Nucleated RBC 0.0 10^3/uL Granulocyte % 72.3 % Lymphocyte % 16.4 % Monocyte % 7.9 % Eosinophil % 3.0 % Basophil % 0.4 % Nucleated Red Blood Cells % 0.0 Comp Metabolic Panel 02/03/2019 [facility] Sodium 133 mmol/L Low 135-[address] [place] [address] [phone] Potassium 4.2 mmol/L Normal 3.5-5.0 Chloride 97 mmol/L Low 101-111 Co2 Carbon Dioxide 28 mmol/L Normal 22-32 Anion Gap 8 mmol/L Normal 2-11 Glucose 321 mg/dL High 70-100 Blood Urea Nitrogen 26 mg/dL High 6-24 Creatinine 1.21 mg/dL High 0.67-1.17 BUN/Creatinine Ratio 21.5 High 8-20 Calcium 8.9 mg/dL Normal 8.6-10.3 Total Protein 7.2 g/dL Normal 6.4-8.9 Albumin 3.5 g/dL Normal 3.2-5.2 Globulin 3.7 g/dL Normal 2-4 Albumin/Globulin Ratio 0.9 Low 1-3 Total Bilirubin 0.30 mg/dL Normal 0.2-1.0 Alkaline Phosphatase 140 U/L High 34-104 Alt 16 U/L Normal 7-52 Ast 17 U/L Normal 13-39 Egfr Non- 57.7 >60 Egfr 69.8 >60 10 Inr/Protime 02/03/2019 [facility] Inr 1.03 Normal 0.82-1.[address] [place] [address] [phone] Laboratory test 02/03/2019 [facility] Partial 30.1 Normal 26.0 -38.[address] [place] [address] Time PTT [phone] Type & Screen 02/03/2019 [facility] Patient O Positive [address] [place] [address] [phone] Antibody Screen NEGATIVE Xray 12/21/2018 [facility] Chest PA & Lat <pending> DRIVE [address] [place] [address] [phone] Laboratory 12/11/2018 [facility] B-Type <pending> test finding [address] [place] [address] Peptide BNP [phone] Laboratory 11/11/2018 [facility] Point of Care > 444 mg/dL Critical 70- [address] Glucose high 100 [place] [address] [phone] Laboratory 11/11/2018 [facility] Creatine 100 U/L Normal 10- [address] Kinase(CK) 223 [place] [address] [phone] Troponin-I (TnI) 0.04 ng/mL Critical high <0.04 14 Myoglobin 56.0 ng/mL Normal 17.4-105.7 Comp Metabolic Panel 11/11/2018 [facility] Sodium 129 mmol/L Low 135-[address] [place] [address] [phone] Chloride 100 mmol/L Low 101-111 Co2 Carbon Dioxide 18 mmol/L Low 22-32 Calcium 9.1 mg/dL Normal 8.6-10.3 15 Albumin 4.0 g/dL Normal 3.2-5.2 16 Total Bilirubin 0.40 mg/dL Normal 0.2-1.0 17 Potassium TNP mmol/L 3.5-5.0 18 Anion Gap 11 mmol/L Normal 2-11 Glucose 422 mg/dL High 70-100 19 Blood Urea Nitrogen 22 mg/dL Normal 6-24 20 Creatinine 1.48 mg/dL High 0.67-1.17 21 BUN/Creatinine Ratio 14.9 Normal 8-20 Total Protein 7.9 g/dL Normal 6.4-8.9 22 Globulin 3.9 g/dL Normal 2-4 Albumin/Globulin Ratio 1.0 Normal 1-3 Alkaline Phosphatase 196 U/L High 34-104 23 Alt 64 U/L High 7-52 24 Ast TNP U/L 13-39 25 Egfr Non- 45.7 >60 Egfr 55.3 >60 26 Laboratory 11/11/2018 [facility] Point of > 444 Critical 70- 100 27 test finding [address] Care Glucose mg/dL high [place], [place] [address] [phone] Laboratory 11/11/2018 [facility] Potassium 4.8 Normal 3.5-5.0 test finding [address] Redraw mmol/L [place], [place] [id number] [phone] Ast Redraw 32 U/L Normal 13-39 Laboratory test 11/11/2018 [facility] Point of 393 mg/dL High 70-100 [address] [place] [address] [phone] Basic Metabolic 10/20/2018 [facility] Sodium 136 mmol/L Normal 135-[address] [place] [address] [phone] Potassium 4.9 mmol/L Normal 3.5-5.0 Chloride 103 mmol/L Normal 101-111 Co2 Carbon Dioxide 26 mmol/L Normal 22-32 Anion Gap 7 mmol/L Normal 2-11 Glucose 134 mg/dL High 70-100 Blood Urea Nitrogen 17 mg/dL Normal 6-24 Creatinine 1.28 mg/dL High 0.67-1.17 BUN/Creatinine Ratio 13.3 Normal 8-20 Calcium 9.6 mg/dL Normal 8.6-10.3 Egfr Non- 54.1 >60 Egfr 65.4 >60 29 Basic Metabolic 10/13/2018 [facility] Sodium 136 mmol/L Normal 135-[address] [place] [address] [phone] Potassium 4.6 mmol/L Normal 3.5-5.0 Chloride 103 mmol/L Normal 101-111 Co2 Carbon Dioxide 28 mmol/L Normal 22-32 Anion Gap 5 mmol/L Normal 2-11 Glucose 107 mg/dL High 70-100 Blood Urea Nitrogen 14 mg/dL Normal 6-24 Creatinine 1.34 mg/dL High 0.67-1.17 BUN/Creatinine Ratio 10.4 Normal 8-20 Calcium 9.7 mg/dL Normal 8.6-10.3 Egfr Non- 51.3 >60 Egfr 62.1 >60 30 Laboratory test 10/03/2018 [facility] Point of 317 mg/dL High 70-100 [address] [place] [place] [address] [phone] CBC Auto Diff 10/03/2018 [facility] White Blood 8.9 Normal 3.5 -10.[address] Count 10^3/[place] [address] [phone] Red Blood Count 4.27 10^6/uL Normal 4.18-5.48 Hemoglobin 13.4 g/dL Low 14.0-18.0 Hematocrit 39 % Normal 36-46 Mean Corpuscular Volume 91 fL Normal 80-94 Mean Corpuscular Hemoglobin 32 pg High 27-31 Mean Corpuscular HGB Conc 34 g/dL Normal 31-36 Red Cell Distribution Width 14 % Normal 10.5-15 Platelet Count 234 10^3/uL Normal 150-450 Mean Platelet Volume 8.5 fL Normal 7.4-10.4 Abs Neutrophils 6.4 10^3/uL Normal 1.5-7.7 Abs Lymphocytes 1.2 10^3/uL Normal 1.0-4.8 Abs Monocytes 1.2 10^3/uL High 0-0.8 Abs Eosinophils 0.1 10^3/uL Normal 0-0.6 Abs Basophils 0 10^3/uL Normal 0-0.2 Abs Nucleated RBC 0 10^3/uL Granulocyte % 71.9 % Lymphocyte % 13.3 % Monocyte % 13.8 % Eosinophil % 0.8 % Basophil % 0.2 % Nucleated Red Blood Cells % 0 Laboratory test 10/03/2018 [facility] Lactic Acid 1.2 mmol/L Normal 0.5-2.0 [address] [place] [address] [phone] B-Type Natriuretic Peptide BNP 60 pg/mL <=100 Comp Metabolic Panel 10/03/2018 [facility] Sodium 129 mmol/L Low 135-145 [address] [place] [address] [phone] Potassium 4.7 mmol/L Normal 3.5-5.0 Chloride 93 mmol/L Low 101-111 Co2 Carbon Dioxide 26 mmol/L Normal 22-32 Anion Gap 10 mmol/L Normal 2-11 Glucose 323 mg/dL High 70-100 Blood Urea Nitrogen 38 mg/dL High 6-24 Creatinine 2.19 mg/dL High 0.67-1.17 BUN/Creatinine Ratio 17.4 Normal 8-20 Calcium 9.4 mg/dL Normal 8.6-10.3 Total Protein 7.5 g/dL Normal 6.4-8.9 Albumin 3.9 g/dL Normal 3.2-5.2 Globulin 3.6 g/dL Normal 2-4 Albumin/Globulin Ratio 1.1 Normal 1-3 Total Bilirubin 0.30 mg/dL Normal 0.2-1.0 Alkaline Phosphatase 85 U/L Normal 34-104 Alt 13 U/L Normal 7-52 Ast 16 U/L Normal 13-39 Egfr Non- 29.1 >60 Egfr 35.2 >60 33 Laboratory test 10/03/2018 [facility] Magnesium 2.1 mg/dL Normal 1.9-2.7 [address] [place] [address] [phone] Troponin-I (TnI) 0.04 ng/mL Critical high <0.04 34 TSH (Thyroid Stim Horm) 2.96 mcIU/mL Normal 0.34-5.60 Urinalysis Profile 10/03/2018 [facility] Urine Color Yellow [address] [place] [address] [phone] Urine Appearance Clear Urine Specific [place] 1.011 Normal 1.010-1.030 Urine pH 5.0 Normal 5-9 Urine Urobilinogen Negative Negative Urine Ketones Trace Abnormal Negative Urine Protein Negative Negative Urine Leukocytes Negative Negative Urine Blood Negative Negative Urine Nitrite Negative Negative Urine Bilirubin Negative Negative Urine Glucose 2+(150 mg/dL) Abnormal Negative 1 [facility], Room Number [id number] 2 Because ethnic data is not always [...] 130-159 High: 160-189 Very High: >189 7 [facility], Room Number 133 [id number] [facility], Room Number 133 [id number] 9 Therapeutic target for the treatment of diabetes mellitus patients is <7% HBA1C, and in selective patients <6.0%. Please refer to [employer] diabetic care guidelines for further information. 10 Because ethnic data is not always readily [...] 15-29 5 Kidney failure <15 (or dialysis) 11 Standard intensity warfarin therapeutic range: 2.0-3.0 High intensity warfarin therapeutic range: 2.5-3.5 12 Distillation Operator Helper: [id number] 13 Specimen hemolyzed. Result may not be valid. 14 Result TnIDx:0.04 Called to [id number] at: 18:55:13 by:[id number] Read back by: [id number] Troponin-I testing on Plasma Separator Tubes (PST) has a known false positive rate of 0.20-0.40%. All positive troponins reflex immediately to secondary confirmatory testing. Using the [employer] DxI 800 Access Immunoassay systems, the 99th percentile upper reference limit was demonstrated to be < 0.03 ng/mL. 15 Specimen hemolyzed. Result may not be valid. 16 Specimen hemolyzed. Result may not be valid. 17 Specimen hemolyzed. Result may not be valid. 18 Specimen Hemolyzed. Result may not be valid. Unable to report test result due to hemolysis. 19 Specimen hemolyzed. Result may not be valid. 20 Specimen hemolyzed. Result may not be valid. 21 Specimen hemolyzed. Result may not be valid. 22 Specimen hemolyzed. Result may not be valid. 23 Specimen hemolyzed. Result may not be valid. 24 Specimen hemolyzed. Result may not be valid. 25 Unable to report test result due to hemolysis. 26 Because ethnic data is not always readily [...] 15-29 5 Kidney failure <15 (or dialysis) 27 Distillation Operator Helper: [id number] 28 Distillation Operator Helper: [id number] 29 Because ethnic data is not always readily [...] 15-29 5 Kidney failure <15 (or dialysis) 30 Because ethnic data is not always [...] 5 Kidney failure <15 (or dialysis) 31 Distillation Operator Helper: [id number] 32 [facility] Severe Sepsis and Septic Shock Management Bundle Measure requires all lactic acids initially measuring >2.0 mmol/L be repeated. 33 Because ethnic data is not always readily [...] 15-29 5 Kidney failure <15 (or dialysis) 34 Result TnIDx:0.04 Called to [id number] at: 03:52:53 by:[id number] Read back by: [id number] Troponin-I testing on Plasma Separator Tubes (PST) has a known false positive rate of 0.20-0.40%. All positive troponins reflex immediate secondary confirmatory testing. Procedures Date Code Description Status 04/01/201916911 Inject/Drain Joint/Bursa Major W/O US Completed 03/22/2019 25689 EKG Tracing & Interpretation Completed 02/09/2019 53798 Proctosigmoidoscopy Completed 02/08/2019 [id number] Colonoscopy Completed 02/05/2019 [id number] Colonoscopy Completed 01/28/2019 57973 Inject/Drain Joint/Bursa Major W/O US Completed 01/05/2019 33601 ECHO Transthoracic, Real-Time 2D With Doppler And Color Completed Flow 01/05/2019 89291 ECHO Transthoracic, Real-Time 2D With Doppler And Color Completed Flow 01/05/2019 25459 Pace Maker Eval W/Iterative Adjustment Multiple Lead Completed Pacemaker 01/05/2019 00868 Pace Maker Eval W/Iterative Adjustment Multiple Lead Completed Pacemaker 12/11/2018 12623 Interrogation Implant Cardiovasc Monitor System Incl Completed Analysis Int 12/11/2018 87339 Interrogation Implant Cardiovasc Monitor System Incl Completed Analysis Int 12/11/2018 33174 Pace Maker Eval W/Iterative Adjustment Multiple Lead Completed Pacemaker 12/11/2018 53242 Pace Maker Eval W/Iterative Adjustment Multiple Lead Completed Pacemaker 11/11/2018 14660 Echocardiogram, Limited Study Completed 11/10/2018 80261 EKG, Interpretation Only Completed 10/29/2018 19212 Removal Devitalization Tissue Wound Less Than Equal 20 Completed Square CM 10/07/2018 52039 ECHO Transthorasic Realtime 2D W Doppler & Color Flow Completed Hosp 10/05/2018 26440 Nerve Conduction 09-10 Studies Completed 10/05/2018 90776 Needle Electromyography Each Extremity W/Related Completed Paraspinal Areas Medical Devices Description No Information Available Encounters Type Date Location Provider Dx Diagnosis Office Visit 03/22/2019 [facility] Rajni Inman, I50.42 Chronic combined 1:50p Of [facility] [place] systolic and diastolic hrt fail I35.0 Nonrheumatic aortic (valve) stenosis I34.0 Nonrheumatic mitral (valve) insufficiency 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 disease with heart failure E11.8 Type 2 diabetes mellitus with unspecified complications D12.8 Benign neoplasm of rectum E78.5 Hyperlipidemia, unspecified Office Visit 02/17/2019 8:00a [facility] Malka Ozuna, I11.0 Hypertensive heart [place] disease with heart failure I50.42 Chronic combined systolic and diastolic hrt fail E11.8 Type 2 diabetes mellitus with unspecified complications K59.02 Outlet dysfunction constipation Office Visit 02/10/2019 7:00a Surgical Flavio S. K62.5 Hemorrhage of [facility] Juvencio anus and rectum [place] Office Visit 02/10/2019 3:59p [place] Tone Dunham I25.10 [facility] Ghislaine Ernandez. 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 anus and rectum Hospitalists E11.9 Type 2 diabetes mellitus without complications Z79.4 meterman (current) use of insulin G47.33 Obstructive sleep apnea (adult) (pediatric) I25.10 [facility] disease of [place] coronary artery w/o ang pctrs E78.5 Hyperlipidemia, unspecified Office Visit 01/28/2019 [place] Cas F M17.12 Unilateral primary 11:00a Orthopedics at [facility] Remi osteoarthritis, left [place] knee Office Visit 01/22/2019 [facility] Asia I11.0 Hypertensive heart 10:00a Sandra Dye disease with heart failure I50.42 Chronic combined systolic and diastolic hrt fail E11.8 Type 2 diabetes mellitus with unspecified complications I25.10 [facility] disease of [place] coronary artery w/o ang pctrs Z95.0 Presence of cardiac pacemaker Office Visit 12/11/2018 3:30p [facility] Rajni Inman, I25.10 [facility] Of Syed [place] disease of [place] coronary artery w/o ang pctrs Z95.2 Presence of prosthetic heart valve I34.0 Nonrheumatic mitral (valve) insufficiency 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 Z95.0 Presence of cardiac pacemaker E11.8 Type 2 diabetes mellitus with unspecified complications N17.9 Acute kidney failure, unspecified I10 Essential (primary) hypertension Z98.61 Coronary angioplasty status T82.120A Displacement of cardiac electrode, initial encounter Office Visit 11/11/2018 3:51p [facility] Tone Ernandez, R53.1 Weakness M.DJose I44.7 Left bundle-branch block, unspecified R94.39 Abnormal result of other cardiovascular function study I25.10 [facility] heart disease of [place] coronary artery w/o ang pctrs I35.0 Nonrheumatic aortic (valve) stenosis I34.0 Nonrheumatic mitral (valve) insufficiency R94.31 Abnormal electrocardiogram [ECG] [EKG] R07.9 Chest pain, unspecified Office Visit 11/11/2018 [facility] Alexsandra I44.7 Left bundle-branch 9:30a Assoc,pc Constance, MOLDER HELPER block, unspecified Hospitalists Office Visit 11/09/2018 [facility] Kristan Glover, R55 Syncope and 10:35a Assoc,pc DO collapse Hospitalists N17.9 Acute kidney failure, unspecified R74.0 Nonspec elev of levels of transamns & lactic acid dehydrgnse E11.9 Type 2 diabetes mellitus without complications E78.5 Hyperlipidemia, unspecified Office Visit 10/27/2018 3:30p [facility] Analia Olmstead, I25.10 [facility] MOLDER HELPER disease of [place] coronary artery w/o ang pctrs N17.9 Acute kidney failure, unspecified I50.42 Chronic combined systolic and diastolic hrt fail I34.0 Nonrheumatic mitral (valve) insufficiency Office Visit 10/13/2018 1:00p [facility] Analia Olmstead, N17.9 Acute kidney Of [facility] MOLDER HELPER failure, unspecified E11.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 with hyperglycemia I25.10 [facility] heart disease of [place] coronary artery w/o ang pctrs I50.42 Chronic combined systolic and diastolic hrt fail I34.0 Nonrheumatic mitral (valve) insufficiency Office Visit 10/08/2018 2:35p [facility] Rajni Inman I50.9 Heart failure, Of [facility] M.D. unspecified Office Visit 10/07/2018 3:00p [facility] Rajni Inman I50.9 Heart failure, Of [facility] M.D. unspecified N18.9 Chronic kidney disease, unspecified I34.0 Nonrheumatic mitral (valve) insufficiency I35.0 Nonrheumatic aortic (valve) stenosis E78.5 Hyperlipidemia, unspecified Office [facility] 10/03/2018 10[facility] R53.1 Weakness Assoc, Hospitalists MD Gabrielle N17.9 Acute kidney failure, unspecified E11.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 with hyperglycemia R79.89 Other specified abnormal findings of blood chemistry E87.1 Hypo-osmolality and hyponatremia Assessments Date Code Description Provider 04/01/2019 M25.562 Pain in left knee Cas Khalil MD 04/01/2019 M17.12 Unilateral primary osteoarthritis, Cas Khalil MD left knee 03/22/2019 I50.42 Chronic combined systolic Rajni Inman M.D. (congestive) and diastolic (conges 03/22/2019 I35.0 Nonrheumatic aortic (valve) stenosis Rajni Inman M.D. 03/22/2019 I34.0 Nonrheumatic mitral (valve) Rajni Inman M.D. insufficiency 03/22/2019 Z95.2 Presence of prosthetic heart valve Rajni Inman M.D. 03/22/2019 Z95.0 Presence of cardiac pacemaker Rajni Inman M.D. 03/22/2019 K63.5 Polyp of colon Rajni Inman M.D. 02/21/2019 K62.5 Hemorrhage of anus and rectum Asia Hardik, D.O. 02/21/2019 I11.0 Hypertensive heart disease with Asia Hardik, D.O. heart failure 02/21/2019 I11.0 Hypertensive heart disease with Asia Hardik, D.O. heart failure 02/21/2019 E11.8 Type 2 diabetes mellitus with Asia Hardik, D.O. unspecified complications 02/21/2019 D12.8 Benign neoplasm of rectum Asia Hardik, D.O. 02/21/2019 E78.5 Hyperlipidemia, unspecified Asia Hardik, D.O. 02/21/2019 E11.8 Type 2 diabetes mellitus with Asia Hardik, D.O. unspecified complications 02/21/2019 D12.8 Benign neoplasm of rectum Asia Hardik, D.O. 02/21/2019 E78.5 Hyperlipidemia, unspecified Asia Dye D.O. 02/17/2019 I11.0 Hypertensive heart disease with MOUNA Linn heart failure 02/17/2019 I50.42 Chronic combined systolic MOUNA Linn (congestive) and diastolic (conges 02/17/2019 E11.8 Type 2 diabetes mellitus with MOUNA Linn unspecified complications 02/17/2019 K59.02 Outlet dysfunction constipation MOUNA Linn 02/10/2019 I25.10 Atherosclerotic heart disease of Tone Ernandez M.D. [place] coronary artery without angina pectoris 02/10/2019 I50.9 Heart failure, unspecified Tone Ernandez M.D. 02/10/2019 K62.5 Hemorrhage of anus and rectum Flavio Henning MD 02/10/2019 I35.0 Nonrheumatic aortic (valve) stenosis Tone Enrandez M.D. 02/10/2019 I34.0 Nonrheumatic mitral (valve) Tone Ernandez M.D. insufficiency 02/10/2019 Z79.02 meterman (current) use of Tone Ernandez M.D. antithrombotics/antiplatelets 02/10/2019 Z95.0 Presence of cardiac pacemaker Tone Ernandez M.D. 02/10/2019 Z01.810 Encounter for preprocedural Tone Ernandez M.D. cardiovascular examination 02/10/2019 K62.5 Hemorrhage of anus and rectum Tone Ernandez M.D. 02/09/2019 E11.622 Type 2 diabetes mellitus with other Iris Vizcarra NP skin ulcer 02/09/2019 L97.529 Non-pressure chronic ulcer of other Iris Vizcarra NP part of left foot with unspecified severity 02/09/2019 D12.8 Benign neoplasm of rectum Flavio Henning MD 02/09/2019 E11.8 Type 2 diabetes mellitus with Iris Vizcarra NP unspecified complications 02/09/2019 D12.8 Benign neoplasm of rectum Flavio Henning MD 02/08/2019 D12.8 Benign neoplasm of rectum Flavio Henning MD 02/03/2019 K62.5 Hemorrhage of anus and rectum Asia Dye D.O. 02/03/2019 E11.9 Type 2 diabetes mellitus without Asia Hardik, D.O. complications 02/03/2019 Z79.4 [facility] (current) use of insulin Asia Dye D.O. 02/03/2019 G47.33 Obstructive sleep apnea (adult) Asia Dye D.O. 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 (congestive) and diastolic (conges 01/22/2019 E11.8 Type 2 diabetes mellitus with Asia Dye D.O. unspecified complications 01/22/2019 I25.10 Atherosclerotic heart disease of Asia Dye D.O. [place] coronary artery with 01/22/2019 Z95.0 Presence of cardiac pacemaker Isauro Hernandez.O. 01/05/2019 Z95.0 Presence of cardiac pacemaker Rajni Inman M.D. 01/05/2019 Z95.2 Presence of prosthetic heart valve Rajni Inman M.D. 01/05/2019 Z95.0 Presence of cardiac pacemaker Ica Pacer Schedule 01/05/2019 Z95.2 Presence of prosthetic heart valve Traveling ECHO 1 01/05/2019 I44.7 Left bundle-branch block, Ica Pacer Schedule unspecified 01/05/2019 I34.0 Nonrheumatic mitral (valve) Traveling ECHO 1 insufficiency 01/05/2019 I27.22 Pulmonary hypertension due to left Traveling ECHO 1 heart disease 12/11/2018 I25.10 Atherosclerotic heart disease of Rajni Inman M.D. [place] coronary artery with 12/11/2018 Z95.0 Presence of cardiac pacemaker Rajni Inman M.D. 12/11/2018 Z95.2 Presence of prosthetic heart valve Rajni Inman M.D. 12/11/2018 I44.7 Left bundle-branch block, Ica Pacer Schedule unspecified 12/11/2018 I34.0 Nonrheumatic mitral (valve) Rajni Inman M.D. insufficiency 12/11/2018 I27.22 Pulmonary hypertension due to left Rajni Inman M.D. heart disease 12/11/2018 Z95.0 Presence of cardiac pacemaker Ica Pacer Schedule 12/11/2018 Z95.0 Presence of cardiac pacemaker Rajni Inman M.D. 12/11/2018 E11.8 Type 2 diabetes mellitus with Rajni Inman M.D. unspecified complications 12/11/2018 N17.9 Acute kidney failure, unspecified Rajni Inman M.D. 12/11/2018 I10 Essential (primary) hypertension Rajni Inman M.D. 12/11/2018 Z98.61 Coronary angioplasty status Rajni Inman M.D. 12/11/2018 T82.120A Displacement of cardiac electrode, Rajni Inman M.D. initial encounter 11/11/2018 R53.1 Weakness Tone Ernandez M.D. 11/11/2018 I44.7 Left bundle-branch block, Tone Ernandez M.D. unspecified 11/11/2018 R94.39 Abnormal result of other Tone Ernandez M.D. cardiovascular function study 11/11/2018 I44.7 Left bundle-branch block, Alexsandra Nolasco, [employer] unspecified 11/11/2018 I25.10 Athscl heart disease of [place] Tone Ernandez M.D. coronary artery w/o ang pctrs 11/11/2018 I35.0 Nonrheumatic aortic (valve) stenosis Tone Ernandez M.D. 11/11/2018 I34.0 Nonrheumatic mitral (valve) Tone Ernandez M.D. insufficiency 11/11/2018 R94.31 Abnormal electrocardiogram [ECG] Tone Ernandez M.D. [EKG] 11/11/2018 R07.9 Chest pain, unspecified Tone Ernandez M.D. 11/10/2018 R94.31 Abnormal electrocardiogram [ECG] Keyon Durand M.D. [EKG] 11/09/2018 R55 Syncope and collapse Kristan Rootraheem, DO 11/09/2018 N17.9 Acute kidney failure, unspecified Kristan Rooth, DO 11/09/2018 R74.0 Nonspec elev of levels of transamns Kristan Rooth, DO & lactic acid dehydrgnse 11/09/2018 E11.9 Type 2 diabetes mellitus without Kristan Rooth, DO complications 11/09/2018 E78.5 Hyperlipidemia, unspecified Kristan Rooth, DO 10/29/2018 L97.521 Non-prs chronic ulcer oth prt l foot Jose Sanchez M.D. limited to brkdwn skin 10/29/2018 E11.621 Type 2 diabetes mellitus with foot Jose Sanchez M.D. ulcer 10/29/2018 S91.101A Unspecified open wound of right Jose Sanchez M.D. great toe without damage to 10/29/2018 Z86.14 Personal history of Methicillin Jose Sanchez M.D. resistant Staphylococcus aur 10/29/2018 I89.0 Lymphedema, not elsewhere classified Jose Sanchez M.D. 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 Analia Olmstead [employer] (congestive) and diastolic (conges 10/27/2018 I34.0 Nonrheumatic mitral (valve) Analia Olmstead [employer] insufficiency 10/13/2018 N17.9 Acute kidney failure, unspecified Analia Olmstead, [employer] HELPER 10/13/2018 E11.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 with Analia Olmstead [employer] hyperglycemia 10/13/2018 I25.10 Atherosclerotic heart disease of Analia Olmstead NP [place] coronary artery with 10/13/2018 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 10/07/2018 I50.9 Heart failure, unspecified Rajni Inman M.D. 10/07/2018 N18.9 Chronic kidney disease, unspecified Rajni Inamn M.D. 10/07/2018 I35.0 Nonrheumatic aortic (valve) stenosis Rajni Inman M.D. 10/07/2018 I34.0 Nonrheumatic mitral (valve) Rajni Inman M.D. insufficiency 10/07/2018 I35.0 Nonrheumatic aortic (valve) stenosis Rajni Inman M.D. 10/07/2018 E78.5 Hyperlipidemia, unspecified Rajni Inman M.D. 10/05/2018 E11.42 Type 2 diabetes mellitus with Cassie Jones MD diabetic polyneuropathy 10/05/2018 M54.16 Radiculopathy, lumbar region Cassie Jones MD 10/03/2018 R53.1 Weakness Heath Anthony MD 10/03/2018 N17.9 Acute kidney failure, unspecified Heath Anthony MD 10/03/2018 E11.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 with Heath Anthony MD hyperglycemia 10/03/2018 R79.89 Other specified abnormal findings of Heath Anthony MD blood chemistry 10/03/2018 E87.1 Hypo-osmolality and hyponatremia Heath Anthony MD Plan of Treatment Future Appointment(s):06/24/2019 1:00 pm - Cas Khalil MD at [facility] at [facility]/14/2019 3:30 pm - Rajni Inman M.D. at [facility]05/14/2019 3:00 pm - Ica Pacer Schedule at [facility]04/26/2019 2:00 pm - Ica ECHO Schedule at [facility]2019 10:45 am - Jose Martin M.D. at [facility]04/01 - Cas Khalil, [id number] Pain in left kneeFollow up:Follow up: 3 oujevoI47.12 Unilateral primary osteoarthritis, left knee Functional Status Description No Information Available Mental Status Description No Information Available Referrals Refer to Dr Reason for Referral Status Appt Date Bharat Richardson MD Sent [address] [place] [address] [phone]
--- OUTSIDE RECORDS SUMMARY | 2019-05-09 05:43 | XMS REPORT | Continuity of Care Document ---
:1940 External Reference #:[id number] Author Name Rajni Inman M.D. (transmitted by agent of provider Jasmin Reed) Address [facility] [place] [address] Care Team Providers Name Role Phone Roque Arevalo MD - Endocrinology, Care Team Information [place] [facility] [phone] Diabetes & Metabolism Jerardo Merritt MD - Infectious Care Team Information [place] [facility] Disease DepDamien jose MD - Interventional Care Team Information [place] Cardiology Problems Active Problems Provider Date Aortic valve disorder Rajni Imnan M.D. Onset: 03/04/2016 Mitral valve disorder Rajni Inman M.D. Onset: 07/11/2016 Mixed hyperlipidemia Rajni Inman M.D. Onset: 02/04/2017 Chronic diastolic heart failure Rajni Inman M.D. Onset: 05/06/2017 Obstructive sleep apnea syndrome uLz Paz DNP, RN, JAVON-BANDAR Onset: Hypersomnia Luz Paz DNP, RN, JAVON-BC Onset: 08/22/2017 Hypoxemia Luz Paz DNP RN, JAVON-BANDAR Onset: 08/22/2017 Coronary artery atheroma Rajni Inman M.D. Onset: 01/13/2018 Heart valve replacement Rajni Inman M.D. Onset: 12/11/2018 Social History Type Date Description Comments Sex Unknown Tobacco Use Start: Unknown Never Smoked Cigarettes Smoking Status Reviewed: 03/22/19 Never Smoked Cigarettes ETOH Use Denies alcohol use Tobacco Use Start: Unknown Patient has never smoked Recreational Drug Use Denies Drug Use Exercise Type/Frequency Does not exercise Allergies, Adverse Reactions, Alerts Description No Known Drug Allergies Medications Active Medications SIG Qnty Indications Ordering Date Provider Oxygen Oxygen 2 L nc with 1units Rajni Inman, 05/15/2017 2L [facility] [place] sleep M.D. Aspir-Low 1 by mouth every Roque Arevalo MD 01/10/[address] Metoprolol Succinate 1 tablet by mouth Roque Arevalo MD 01/10/2016 ER every day 25mg Tablets ER 24HR Ondansetron HCL one by mouth every Unknown 4mg 8 hours as needed Tablets for nausea Ventolin HFA 1 to 2 inhalations Unknown every 4 hours as 108(90Base) mcg/Act needed Aerosol Ramipril 1 by mouth every Unknown 5mg Capsules day Clopidogrel Unknown Bisulfate 300mg Tablets Melatonin 1 tablet by mouth Unknown 3mg Tablets every night at bedtime. Furosemide 1 by mouth every Unknown 20mg day Tablets Ferrousul 1 tab by mouth Unknown 325(65Fe) twice a day with mg Tablets some citrus juice but not with food. Glucagon Emergency use as directed Unknown 1mg Kit Simvastatin take 1 tablet by Unknown 40mg mouth at bedtime Tablets Victoza inject 1.8 Unknown 18mg/3ML milligrams under Solution Pen-Inject the skin every day Humulin 70/30 inject 30 units Unknown Kwikpen sub-q in the am, 30 units in the pm, (70-30)100Unit/ML and 30 units at hs Supn or as directed by PCP History Medications Ramipril 1 by mouth 30caps I50.42 Analia Olmstead NP 10/27/2018 - 2.5mg every day 10/27/2018 Capsules Ramipril 1 by mouth 30caps I50.42 Analia Olmstead NP 10/27/2018 - 2.5mg every day 03/21/2019 Capsules Ramipril 1 by mouth 90caps Laura Krause, 09/25/2018 - 2.5mg every day N.P. 10/12/2018 Capsules Medications Administered in Office Medication SIG Qnty Indications Ordering Provider Date Depomedrol 40MG Cas Khalil MD 01/28/2019 Injection Inj, Regadenoson, 0.1 MG Etienne Norris, DO [facility] 02/21/2016 Injection Technetium TC 99M Etienne Norris, DO [facility] 02/21/2016 Tetrofosmin, Per Unit Dose Up To 40 Millicuries Injection Technetium TC 99M Rajni Inman M.D. 02/20/2016 Tetrofosmin, Per Unit Dose Up To 40 Millicuries Injection Immunizations Description No Information Available Vital Signs Date Vital Result Comment 03/22/2019 1:37pm Weight 238.00 lb Heart Rate 78 /min BP Systolic Sitting 96 mmHg Rue reg cuff BP Diastolic Sitting 60 mmHg Rue reg cuff Respiratory Rate 13 /min Ejection Fraction 35-40% 02/17/2019 2:32pm Weight 238.00 lb Heart Rate 78 /min BP Systolic 118 mmHg BP Diastolic 70 mmHg Respiratory Rate 17 /min Body Temperature 97.0 F Pain Level 0 O2 % BldC Oximetry 95 % Results Test Date Facility Test Result H/L Range Note CBC Auto Diff 02/03/2019 [facility] White Blood 11.5 10^3/uL High 3.5-10.[address] [place] [address] [phone] Red Blood Count 4.42 10^6/uL Normal 4.18-5.48 [...] Cells % 0.0 Comp Metabolic Panel 02/03/2019 [facility] Sodium 133 mmol/L Low 135-[address] [place] [address] [phone] Potassium 4.2 mmol/L Normal 3.5-5.0 Chloride 97 [...] Egfr Non- 57.7 >60 Egfr 69.8 >60 1 Inr/Protime 02/03/2019 [facility] Inr 1.03 Normal 0.82-1.[address] [place] [address] [phone] Laboratory test 02/03/2019 [facility] Partial 30.1 Normal 26.0 -38.[address] [place] [address] Time PTT [phone] Type & Screen 02/03/2019 [facility] Patient O Positive [address] [place] [address] [phone] Antibody Screen NEGATIVE Xray 12/21/2018 [facility] Chest PA & Lat 2 <pending> [address]IVE VWS [place], [place] [id number] [phone] Laboratory test 12/11/2018 [facility] B-Type <pending> finding [address] [address] Peptide BNP [phone] Laboratory test 11/11/2018 [facility] Point of Care 393 mg/dL High 70-[address] Glucose 00 [place] [address] [phone] Laboratory test 11/11/2018 [facility] Potassium Redraw 4.8 mmol/ L Normal 3.5- finding [address] 5.0 [place] [address] [phone] Ast Redraw 32 U/L Normal 13-39 Laboratory 11/11/2018 [facility] Point of > 444 Critical 70- 100 4 test finding [address] Care Glucose mg/[place] [address] [phone] Laboratory 11/11/2018 [facility] Creatine 100 U/L Normal 10- 223 5 test finding [address] Kinase(CK) [place] [address] [phone] Troponin-I (TnI) 0.04 ng/mL Critical high <0.04 6 Myoglobin 56.0 ng/mL Normal 17.4-105.7 Comp Metabolic Panel 11/11/2018 [facility] Sodium 129 mmol/L Low 135-[address] [place] [address] [phone] Chloride 100 mmol/L Low 101-111 Co2 Carbon Dioxide 18 mmol/L Low 22-32 Calcium 9.1 mg/dL Normal 8.6-10.3 7 Albumin 4.0 g/dL Normal 3.2-5.2 8 Total Bilirubin 0.40 mg/dL Normal 0.2-1.0 9 Potassium TNP mmol/L 3.5-5.0 10 Anion Gap 11 mmol/L Normal 2-11 Glucose 422 mg/dL High 70-100 11 Blood Urea Nitrogen 22 mg/dL Normal 6-24 12 Creatinine 1.48 mg/dL High 0.67-1.17 13 BUN/Creatinine Ratio 14.9 Normal 8-20 Total Protein 7.9 g/dL Normal 6.4-8.9 14 Globulin 3.9 g/dL Normal 2-4 Albumin/Globulin Ratio 1.0 Normal 1-3 Alkaline Phosphatase 196 U/L High 34-104 15 Alt 64 U/L High 7-52 16 Ast TNP U/L 13-39 17 Egfr Non- 45.7 >60 Egfr 55.3 >60 18 Laboratory 11/11/2018 [facility] Point of > 444 Critical 70- 100 19 test finding [address] Care mg/[place] [address] Glucose [phone] Basic 10/20/2018 [facility] Sodium 136 Normal 135-[address] mmol/[place] [address] [phone] Potassium 4.9 mmol/L Normal 3.5-5.0 Chloride 103 mmol/L Normal 101-111 Co2 Carbon Dioxide 26 mmol/L Normal 22-32 Anion Gap 7 mmol/L Normal 2-11 Glucose 134 mg/dL High 70-100 Blood Urea Nitrogen 17 mg/dL Normal 6-24 Creatinine 1.28 mg/dL High 0.67-1.17 BUN/Creatinine Ratio 13.3 Normal 8-20 Calcium 9.6 mg/dL Normal 8.6-10.3 Egfr Non- 54.1 >60 Egfr 65.4 >60 20 Basic Metabolic 10/13/2018 [facility] Sodium 136 mmol/L Normal 135-[address] [place] [address] [phone] Potassium 4.6 mmol/L Normal 3.5-5.0 Chloride 103 mmol/L Normal 101-111 Co2 Carbon Dioxide 28 mmol/L Normal 22-32 Anion Gap 5 mmol/L Normal 2-11 Glucose 107 mg/dL High 70-100 Blood Urea Nitrogen 14 mg/dL Normal 6-24 Creatinine 1.34 mg/dL High 0.67-1.17 BUN/Creatinine Ratio 10.4 Normal 8-20 Calcium 9.7 mg/dL Normal 8.6-10.3 Egfr Non- 51.3 >60 Egfr 62.1 >60 21 CBC Auto 10/03/2018 [facility] White Blood 8.9 10^3/uL Normal 3.5-10.[address] [place] [address] [phone] Red Blood Count 4.27 10^6/uL Normal 4.18-5.48 [...] Blood Cells % 0 Laboratory test 10/03/2018 [facility] Lactic Acid 1.2 mmol/L Normal 0.5-2.0 22 [address] [place] [address] [phone] B-Type Natriuretic Peptide BNP 60 pg/mL <=100 Comp Metabolic Panel 10/03/2018 [facility] Sodium 129 mmol/L Low 135-145 [address] [place] [address] [phone] Potassium 4.7 mmol/L Normal 3.5-5.0 Chloride 93 [...] Egfr Non- 29.1 >60 Egfr 35.2 >60 23 Laboratory test 10/03/2018 [facility] Magnesium 2.1 mg/dL Normal 1.9-2.[address] [place] [address] [phone] Troponin-I (TnI) 0.04 ng/mL Critical high <0.04 24 TSH (Thyroid Stim Horm) 2.96 mcIU/mL Normal 0.34-5.60 Urinalysis Profile 10/03/2018 [facility] Urine Color Yellow [address] [place] [address] [phone] Urine Appearance Clear Urine Specific [place] 1.011 Normal 1.010-1.030 Urine pH 5.0 Normal 5-9 Urine Urobilinogen Negative Negative Urine Ketones Trace Abnormal Negative Urine Protein Negative Negative Urine Leukocytes Negative Negative Urine Blood Negative Negative Urine Nitrite Negative Negative Urine Bilirubin Negative Negative Urine Glucose 2+(150 mg/dL) Abnormal Negative Laboratory test 10/03/2018 [facility] Point of Care 317 mg/dL High 70-100 25 finding [address] [facility] [place] [address] [phone] Lipid Panel - 09/25/2018 [facility] Creatine <pending> JFM [address] Kinase(CK) [place] [address] [phone] 1 Because ethnic data is not always [...] 5 Kidney failure <15 (or dialysis) 2 Standard intensity warfarin therapeutic range: 2.0-3.0 High intensity warfarin therapeutic range: 2.5-3.5 3 Unhairing Machine Operator: [id number] Unhairing Machine Operator: [id number] 5 Specimen hemolyzed. Result may not be valid. 6 Result TnIDx:0.04 Called to [id number] at: 18:55:13 by:[id number] Read back by: [id number] Troponin-I testing on Plasma Separator Tubes (PST) has a known false positive rate of 0.20-0.40%. All positive troponins reflex immediately to secondary confirmatory testing. Using the SAVORTEX Access Immunoassay systems, the 99th percentile upper reference limit was demonstrated to be < 0.03 ng/mL. 7 Specimen hemolyzed. Result may not be valid. 8 Specimen hemolyzed. Result may not be valid. 9 Specimen hemolyzed. Result may not be valid. 10 Specimen Hemolyzed. Result may not be valid. Unable to report test result due to hemolysis. 11 Specimen hemolyzed. Result may not be valid. 12 Specimen hemolyzed. Result may not be valid. 13 Specimen hemolyzed. Result may not be valid. 14 Specimen hemolyzed. Result may not be valid. 15 Specimen hemolyzed. Result may not be valid. 16 Specimen hemolyzed. Result may not be valid. 17 Unable to report test result due to hemolysis. 18 Because ethnic data is not always [...] 5 Kidney failure <15 (or dialysis) 19 Unhairing Machine Operator: [id number] 20 Because ethnic data is not always readily [...] 15-29 5 Kidney failure <15 (or dialysis) 21 Because ethnic data is not always readily [...] 15-29 5 Kidney failure <15 (or dialysis) 22 [facility] Severe Sepsis and Septic Shock Management Bundle Measure requires all lactic acids initially measuring >2.0 mmol/L be repeated. 23 Because ethnic data is not always readily [...] 15-29 5 Kidney failure <15 (or dialysis) 24 Result TnIDx:0.04 Called to [id number] at: 03:52:53 by:[id number] Read back by: [email or web address] Troponin-I testing on Plasma Separator Tubes (PST) has a known false positive rate of 0.20-0.40%. All positive troponins reflex immediate secondary confirmatory testing. 25 Unhairing Machine Operator: [id number] Procedures Date Code Description Status 03/22/2019 41108 EKG Tracing & Interpretation Completed 02/09/2019 25798 Proctosigmoidoscopy Completed 02/08/2019 14594277 Colonoscopy Completed 02/05/2019 26428041 Colonoscopy Completed 01/28/2019 49072 Inject/Drain Joint/Bursa Major W/O US Completed 01/05/2019 39177 Pace Maker Eval W/Iterative Adjustment Multiple Lead Completed Pacemaker 01/05/2019 23964 Pace Maker Eval W/Iterative Adjustment Multiple Lead Completed Pacemaker 01/05/2019 13080 ECHO Transthoracic, Real-Time 2D With Doppler And Color Completed Flow 01/05/2019 93035 ECHO Transthoracic, Real-Time 2D With Doppler And Color Completed Flow 12/11/2018 20583 Interrogation Implant Cardiovasc Monitor System Incl Completed Analysis Int 12/11/2018 79607 Interrogation Implant Cardiovasc Monitor System Incl Completed Analysis Int 12/11/2018 61239 Pace Maker Eval W/Iterative Adjustment Multiple Lead Completed Pacemaker 12/11/2018 27439 Pace Maker Eval W/Iterative Adjustment Multiple Lead Completed Pacemaker 11/11/2018 22538 Echocardiogram, Limited Study Completed 11/10/2018 99961 EKG, Interpretation Only Completed 10/29/2018 90450 Removal Devitalization Tissue Wound Less Than Equal 20 Completed Square CM 10/07/2018 67572 ECHO Transthorasic Realtime 2D W Doppler & Color Flow Completed Hosp 10/05/2018 23198 Nerve Conduction 09-10 Studies Completed 10/05/2018 25805 Needle Electromyography Each Extremity W/Related Completed Paraspinal Areas 09/25/2018 50849 EKG Tracing & Interpretation Completed Medical Devices Description No Information Available Encounters Type Date Location Provider Dx Diagnosis Office Visit 03/22/2019 [facility] Rajni Inman, I50.42 Chronic combined 1:50p Of Syed Noyola systolic and diastolic hrt fail I35.0 Nonrheumatic aortic (valve) stenosis I34.0 Nonrheumatic mitral (valve) insufficiency Z95.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 disease with heart failure E11.8 Type 2 diabetes mellitus with unspecified complications D12.8 Benign neoplasm of rectum E78.5 Hyperlipidemia, unspecified Office Visit 02/17/2019 8:00a [facility] Malka Ozuna, I11.0 Hypertensive heart PA disease with heart failure I50.42 Chronic combined systolic and diastolic hrt fail E11.8 Type 2 diabetes mellitus with unspecified complications K59.02 Outlet dysfunction constipation Office Visit 02/10/2019 3:59p [facility] Tone Dunham I25.10 [facility] Dennys Ernandez disease of [place] coronary artery w/o ang pctrs I50.9 Heart failure, unspecified I35.0 Nonrheumatic aortic (valve) stenosis I34.0 Nonrheumatic mitral (valve) insufficiency Z79.02 long-term (current) use of antithrombotics/antiplatelets Z95.0 Presence of cardiac pacemaker Z01.810 Encounter for preprocedural cardiovascular examination K62.5 Hemorrhage of anus and rectum Office Visit 02/10/2019 Nghia Kothari K62.5 Hemorrhage of 7:00a [facility] Juvencio anus and rectum [facility] Office Visit 02/09/2019 W[facility] Iris Parson E11.622 Type 2 diabetes 9:15a [facility] KAVIN Vizcarra mellitus with other skin ulcer L97.529 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 knee Office Visit 01/22/2019 [facility] I11.0 Hypertensive heart 10:00a Sandra Dye disease with heart failure I50.42 Chronic combined systolic and diastolic hrt fail E11.8 Type 2 diabetes mellitus with unspecified complications I25.10 [facility] heart disease of [place] coronary artery w/o ang pctrs Z95.0 Presence of cardiac pacemaker Office Visit 12/11/2018 3:30p [facility] Rajni Inman, I25.10 [facility] heart Of [place] Maker M.D. 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 Z95.0 Presence of cardiac pacemaker E11.8 Type 2 diabetes mellitus with unspecified complications N17.9 Acute kidney failure, unspecified I10 Essential (primary) hypertension Z98.61 Coronary angioplasty status T82.120A Displacement of cardiac electrode, initial encounter Office Visit 11/11/2018 3:51p [facility] Tone Ernandez, R53.1 Weakness M.DJose I44.7 Left bundle-branch block, unspecified R94.39 Abnormal result of other cardiovascular function study I25.10 Aths[facility] heart disease of [place] coronary artery w/o ang pctrs I35.0 Nonrheumatic aortic (valve) stenosis I34.0 Nonrheumatic mitral (valve) insufficiency R94.31 Abnormal electrocardiogram [ECG] [EKG] R07.9 Chest pain, unspecified Office Visit 11/11/2018 [facility] Alexsandra I44.7 Left bundle-branch 9:30a Assoc,vincent Nolasco NP block, unspecified Hospitalists Office Visit 11/09/2018 [facility] Kristan Glover, R55 Syncope and 10:35a Assoc,pc DO collapse Hospitalists N17.9 Acute kidney failure, unspecified R74.0 Nonspec elev of levels of transamns & lactic acid dehydrgnse E11.9 Type 2 diabetes mellitus without complications E78.5 Hyperlipidemia, unspecified Office Visit 10/27/2018 3:30p [facility] Analia Olmstead, I25.10 [facility] heart Of [facility] [employer] disease of [place] coronary artery w/o ang pctrs N17.9 Acute kidney failure, unspecified I50.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 unspecified Office Visit 10/07/2018 3:00p [facility] Rajni Inman I50.9 Heart failure, Of [facility] M.D. unspecified N18.9 Chronic kidney disease, unspecified I34.0 Nonrheumatic mitral (valve) insufficiency I35.0 Nonrheumatic aortic (valve) stenosis E78.5 Hyperlipidemia, unspecified Office Visit 10/03/2018 10:32a [facility] Heath Campo R53.1 Weakness Assoc,pc Hospitalists MD Gabrielle N17.9 Acute kidney failure, unspecified E11.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 with hyperglycemia R79.89 Other specified abnormal findings of blood chemistry E87.1 Hypo-osmolality and hyponatremia Office Visit 09/25/2018 2:30p [facility] Laura Kothari I25.10 [facility] heart Of [facility] Foster, N.P. disease of [place] coronary artery w/o ang pctrs I50.42 Chronic combined systolic and diastolic hrt fail E11.8 Type 2 diabetes mellitus with unspecified complications G47.33 Obstructive sleep apnea (adult) (pediatric) I34.0 Nonrheumatic mitral (valve) insufficiency Assessments Date Code Description Provider 03/22/2019 I50.42 Chronic combined systolic Rajni Inman [...] neoplasm of rectum Asia Hardik, D.O. 02/21/2019 E11.8 Type 2 diabetes mellitus with Asia Hardik, D.O. unspecified complications 02/21/2019 E78.5 Hyperlipidemia, unspecified Asia Hardik, D.O. 02/21/2019 D12.8 Benign neoplasm of rectum Asia Hardik, D.O. 02/21/2019 E78.5 Hyperlipidemia, unspecified Asia Hardik, D.O. 02/17/2019 I11.0 Hypertensive heart disease with MOUNA Linn heart failure 02/17/2019 I50.42 Chronic combined systolic MOUNA Linn (congestive) and diastolic (conges 02/17/2019 E11.8 Type 2 diabetes mellitus with MOUNA Linn unspecified complications 02/17/2019 K59.02 Outlet dysfunction constipation MOUNA Linn 02/10/2019 I25.10 Atherosclerotic heart disease of Tone F. Mauser, M.D. [place] coronary artery without angina pectoris 02/10/2019 I50.9 Heart failure, unspecified Tone Ernandez M.D. 02/10/2019 K62.5 Hemorrhage of anus and rectum Flavio Henning MD 02/10/2019 I35.0 Nonrheumatic aortic (valve) stenosis Tone Ernandez M.D. 02/10/2019 I34.0 Nonrheumatic mitral (valve) Tone Ernandez M.D. insufficiency 02/10/2019 Z79.02 long-term (current) use of Tone Ernandez M.D. antithrombotics/antiplatelets [...] E11.9 Type 2 diabetes mellitus without Asia Dye D.O. complications 02/03/2019 Z79.4 long-term (current) use of insulin Asia Dye D.O. 02/03/2019 G47.33 Obstructive sleep apnea (adult) Asia Dye D.O. (pediatric) 02/03/2019 I25.10 Atherosclerotic heart disease of Asia Dye D.O. [place] coronary artery without angina pectoris 02/03/2019 E78.5 Hyperlipidemia, unspecified Isauro Hernandez.O. 01/28/2019 M17.12 Unilateral primary osteoarthritis, Cas Khalil MD left knee 01/27/2019 R53.1 Weakness Malka Ozuna ME 01/27/2019 Z95.0 Presence of cardiac pacemaker Malkakristine Ozuna ME 01/27/2019 I50.42 Chronic combined systolic Malka Ozuna [place] (congestive) and diastolic (conges 01/27/2019 I25.10 Atherosclerotic heart disease [place] coronary artery with 01/27/2019 E11.8 Type 2 diabetes mellitus with Malkakristine Ozuna [place] unspecified complications 01/27/2019 I10 Essential (primary) hypertension Malkakristine Ozuna ME 01/27/2019 K59.02 Outlet dysfunction constipation Malkakristine Ozuna ME 01/22/2019 I11.0 Hypertensive heart disease with Asia Dye D.O. 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 (congestive) and diastolic (conges 01/22/2019 E11.8 Type 2 diabetes mellitus with Asia Dye D.O. unspecified complications 01/22/2019 I25.10 Atherosclerotic heart disease of Asia Dye D.O. [place] coronary artery with 01/22/2019 Z95.0 Presence of cardiac pacemaker Asia Dye D.O. 01/05/2019 Z95.0 Presence of cardiac pacemaker Rajni [...] Atherosclerotic heart disease of Rajni Inman M.D. [place] coronary artery with 12/11/2018 Z95.0 Presence of [...] study 11/11/2018 I44.7 Left bundle-branch block, Alexsandra Bahenaney, KAVIN unspecified 11/11/2018 I25.10 Athscl heart disease of [place] Tone Ernandez M.D. coronary artery w/o ang pctrs 11/11/2018 I35.0 Nonrheumatic aortic (valve) stenosis Tone Ernandez M.D. 11/11/2018 I34.0 Nonrheumatic mitral (valve) Tone Ernandez M.D. insufficiency 11/11/2018 R94.31 Abnormal electrocardiogram [ECG] Tone Ernandez M.D. [EKG] 11/11/2018 R07.9 Chest pain, unspecified Tone Ernandez M.D. 11/10/2018 R94.31 Abnormal electrocardiogram [ECG] Keyon Durand M.D. [EKG] 11/09/2018 R55 Syncope and collapse Kristan Rooth, DO 11/09/2018 N17.9 Acute kidney failure, unspecified [...] Atherosclerotic heart disease of Analia Olmstead NP [place] coronary artery with 10/27/2018 N17.9 Acute kidney failure, unspecified Analia Olmstead [employer] 10/27/2018 I50.42 Chronic combined systolic Analia Olmstead NP (congestive) and diastolic (conges 10/27/2018 I34.0 Nonrheumatic mitral (valve) Analia Olmstead NP insufficiency 10/13/2018 N17.9 Acute kidney failure, unspecified Analia Olmstead [employer] 10/13/2018 E11.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 with Analia Olmstead NP hyperglycemia 10/13/2018 I25.10 Atherosclerotic heart disease of Analia Olmstead NP [place] coronary artery with 10/13/2018 I50.42 Chronic combined systolic Analia Olmstead NP (congestive) and diastolic (conges 10/13/2018 I34.0 Nonrheumatic mitral (valve) Analia Olmstead, [employer] insufficiency 10/08/2018 I50.9 Heart failure, unspecified Rajni Inman M.D. 10/07/2018 I50.9 Heart failure, unspecified aRjni Inman M.D. 10/07/2018 N18.9 Chronic kidney disease, unspecified Rajni Inman M.D. 10/07/2018 I35.0 Nonrheumatic aortic (valve) stenosis [...] E87.1 Hypo-osmolality and hyponatremia Heath Anthony MD 09/25/2018 I25.10 Atherosclerotic heart disease of Keyon Durand M.D. [place] coronary artery with 09/25/2018 I25.10 Atherosclerotic heart disease of Laura Krause N.PJose [place] coronary artery with 09/25/2018 I50.42 Chronic combined systolic Laura S. Jimi, N.P. (congestive) and diastolic (conges 09/25/2018 E11.8 Type 2 diabetes mellitus with Laura Krause, N.P. unspecified complications 09/25/2018 G47.33 Obstructive sleep apnea (adult) Laura Krause N.P. (pediatric) 09/25/2018 I34.0 Nonrheumatic mitral (valve) Laura Krause N.P. insufficiency Plan of Treatment Future Appointment(s):08/25/2019 10:45 am - Jose Martin M.D. at [facility]04/01/2019 1:15 pm - Cas Khalil MD at [facility]..03/22/2019 - Rajni Inman M.D.I50.42 Chronic combined systolic (congestive) and diastolic (congesComments:Lungs nearly clear on exam.Follow up:We will call you with lab values.I35.0 Nonrheumatic aortic ( valve) stenosisNew Orders:Echocardiogram, Ordered: 03/22/19Comments:S/p TAVR.I34.0 Nonrheumatic mitral (valve) insufficiencyNew Orders:Echocardiogram, Ordered: 03/22/19Comments:s/p Michaelle clip.Z95.2 Presence of prosthetic heart valveNew Orders:Echocardiogram, Ordered: 03/22/19Z95.0 Presence of cardiac pacemakerComments:Pacing the atrium.Follow up:Pacer office April or May OV April or may with or after pacer check.K63.5 Polyp of colonComments: No active bleeding.OK to proceed when surgeons ready. Functional Status Description No Information Available Mental Status Description No Information Available Referrals Refer to Dr Reason for Referral Status Appt Date Bharat Richardson MD Sent [address] [place] [address] [phone]
--- OUTSIDE RECORDS SUMMARY | 2019-05-09 05:43 | XMS REPORT | Continuity of Care Document ---
:1940 External Reference #:[id number] Author Name Rajni Inman M.D. (transmitted by agent of provider Jasmin Reed) Address [facility] [place] [address] Care Team Providers Name Role Phone Roque Arevalo MD - Endocrinology, Care Team Information Car Repair Supervisor Diabetes & Metabolism Jerardo Merritt MD - Infectious Care Team Information Car Repair Supervisor [phone] Disease DepDamien jose MD - Interventional Care Team Information Car Repair Supervisor [phone] Cardiology Problems Active Problems Provider Date Aortic valve disorder Rajni Inman M.D. Onset: 03/04/2016 Mitral valve disorder Rajni Inman M.D. Onset: 07/11/2016 Mixed hyperlipidemia Rajni Inman M.D. Onset: 02/04/2017 Chronic diastolic heart failure Rajni Inman M.D. Onset: 05/06/2017 Obstructive sleep apnea syndrome Luz Paz DNP, RN, JAVON-BANDAR Onset: Hypersomnia Luz [...] nc with 1units Rajni Inman, 05/15/2017 2L [facility] sleep M.D. Aspir-Low 1 by mouth every [...] Inj, Regadenoson, 0.1 MG Etienne Norris, DO [facility] 02/21/2016 Injection Technetium TC 99M Etienne Norris, DO [facility] 02/21/2016 Tetrofosmin, Per Unit Dose Up [...] H/L Range Note CBC Auto Diff 02/03/2019 [facility] White Blood 11.5 10^3/uL High 3.5-10.[address] [place] [address] [phone] Red Blood Count 4.42 10^6/uL Normal 4.18-5.48 [...] Cells % 0.0 Comp Metabolic Panel 02/03/2019 [facility] Sodium 133 mmol/L Low 135-[address] [place] [address] [phone] Potassium 4.2 mmol/L Normal 3.5-5.0 Chloride 97 [...] >60 Egfr 69.8 >60 1 Inr/Protime 02/03/2019 [facility] Inr 1.03 Normal 0.82-1.[address] [place] [address] [phone] Laboratory test 02/03/2019 [facility] Partial 30.1 Normal 26.0 -38.[address] [place] [address] Time PTT [phone] Type & Screen 02/03/2019 [facility] Patient O Positive [address] [place] [address] [phone] Antibody Screen NEGATIVE Xray 12/21/2018 [facility] Chest PA & Lat 2 <pending> DRIVE VWS [place], [place] [id number] [phone] Laboratory test 12/11/2018 [facility] B-Type <pending> finding [address] [place] [address] Peptide BNP [phone] Laboratory test 11/11/2018 [facility] Point of Care 393 mg/dL High 70-[address] Glucose 00 [place] [address] [phone] Laboratory test 11/11/2018 [facility] Potassium Redraw 4.8 mmol/ L Normal 3.5- finding [address] 5.0 [place] [address] [phone] Ast Redraw 32 U/L Normal 13-39 Laboratory 11/11/2018 [facility] Point of > 444 Critical 70- 100 4 test finding [address] Care Glucose mg/[place] [address] [phone] Laboratory 11/11/2018 [facility] Creatine 100 U/L Normal 10- 223 5 test finding [address] Kinase(CK) [place] [address] [phone] Troponin-I (TnI) 0.04 ng/mL Critical high <0.04 6 Myoglobin 56.0 ng/mL Normal 17.4-105.7 Comp Metabolic Panel 11/11/2018 [facility] Sodium 129 mmol/L Low 135-[address] [place] [address] [phone] Chloride 100 mmol/L Low 101-111 Co2 Carbon [...] >60 Egfr 55.3 >60 18 Laboratory 11/11/2018 [facility] Point of > 444 Critical 70- 100 19 test finding [address] Care mg/[place] [address] Glucose [phone] Basic 10/20/2018 [facility] Sodium 136 Normal 135-[address] mmol/[place] [address] [phone] Potassium 4.9 mmol/L Normal 3.5-5.0 Chloride 103 mmol/L Normal 101-111 Co2 Carbon Dioxide 26 mmol/L Normal 22-32 Anion Gap 7 mmol/L Normal 2-11 Glucose 134 mg/dL High 70-100 Blood Urea Nitrogen 17 mg/dL Normal 6-24 Creatinine 1.28 mg/dL High 0.67-1.17 BUN/Creatinine Ratio 13.3 Normal 8-20 Calcium 9.6 mg/dL Normal 8.6-10.3 Egfr Non- 54.1 >60 Egfr 65.4 >60 20 Basic Metabolic 10/13/2018 [facility] Sodium 136 mmol/L Normal 135-[address] [place] [address] [phone] Potassium 4.6 mmol/L Normal 3.5-5.0 Chloride 103 mmol/L Normal 101-111 Co2 Carbon Dioxide 28 mmol/L Normal 22-32 Anion Gap 5 mmol/L Normal 2-11 Glucose 107 mg/dL High 70-100 Blood Urea Nitrogen 14 mg/dL Normal 6-24 Creatinine 1.34 mg/dL High 0.67-1.17 BUN/Creatinine Ratio 10.4 Normal 8-20 Calcium 9.7 mg/dL Normal 8.6-10.3 Egfr Non- 51.3 >60 Egfr 62.1 >60 21 CBC Auto 10/03/2018 [facility] White Blood 8.9 10^3/uL Normal 3.5-10.[address] [place] [address] [phone] Red Blood Count 4.27 10^6/uL Normal 4.18-5.48 [...] Blood Cells % 0 Laboratory test 10/03/2018 [facility] Lactic Acid 1.2 mmol/L Normal 0.5-2.0 22 finding [address] [place] [address] [phone] B-Type Natriuretic Peptide BNP 60 pg/mL <=100 Comp Metabolic Panel 10/03/2018 [facility] Sodium 129 mmol/L Low 135-145 [address] [place] [address] [phone] Potassium 4.7 mmol/L Normal 3.5-5.0 Chloride 93 [...] Egfr 35.2 >60 23 Laboratory test 10/03/2018 [facility] Magnesium 2.1 mg/dL Normal 1.9-2.[address] [place] [address] [phone] Troponin-I (TnI) 0.04 ng/mL Critical high <0.04 24 TSH (Thyroid Stim Horm) 2.96 mcIU/mL Normal 0.34-5.60 Urinalysis Profile 10/03/2018 [facility] Urine Color Yellow [address] [place] [address] [phone] Urine Appearance Clear Urine Specific [place] 1.011 Normal 1.010-1.030 Urine pH 5.0 Normal 5-9 Urine Urobilinogen Negative Negative Urine Ketones Trace Abnormal Negative Urine Protein Negative Negative Urine Leukocytes Negative Negative Urine Blood Negative Negative Urine Nitrite Negative Negative Urine Bilirubin Negative Negative Urine Glucose 2+(150 mg/dL) Abnormal Negative Laboratory test 10/03/2018 [facility] Point of Care 317 mg/dL High 70-100 25 finding [address] [facility] [place] [address] [phone] Lipid Panel - 09/25/2018 [facility] Creatine <pending> JFM [address] Kinase(CK) [place] [address] [phone] 1 Because ethnic data is not always [...] High intensity warfarin therapeutic range: 2.5-3.5 3 Direct Support Specialist: [id number] Direct Support Specialist: [id number] 5 Specimen hemolyzed. Result may not be valid. 6 Result TnIDx:0.04 Called to [id number] at: 18:55:13 by:[id number] Read back by: [id number] Troponin-I testing on Plasma Separator Tubes (PST) has a known false positive rate of 0.20-0.40%. All positive troponins reflex immediately to secondary confirmatory testing. Using the [employer] Access Immunoassay systems, the 99th percentile upper [...] 5 Kidney failure <15 (or dialysis) 19 Direct Support Specialist: [id number] 20 Because ethnic data is not always [...] 5 Kidney failure <15 (or dialysis) 22 [facility] Severe Sepsis and Septic Shock Management [...] (or dialysis) 24 Result TnIDx:0.04 Called to [id number] at: 03:52:53 by:[id number] Read back by: [email or web address] Troponin-I testing on Plasma Separator Tubes (PST) has a known false positive rate of 0.20-0.40%. All positive troponins reflex immediate secondary confirmatory testing. 25 Direct Support Specialist: [id number] Procedures Date Code Description Status 03/22/2019 36301 EKG Tracing & Interpretation Completed 02/09/2019 79251 Proctosigmoidoscopy Completed 02/08/2019 86778302 Colonoscopy Completed 02/05/2019 18769501 Colonoscopy Completed 01/28/2019 56799 Inject/Drain Joint/Bursa Major W/O US Completed 01/05/2019 66094 Pace Maker Eval W/Iterative Adjustment Multiple Lead Completed Pacemaker 01/05/2019 70135 Pace Maker Eval W/Iterative Adjustment Multiple Lead Completed Pacemaker 01/05/2019 70691 ECHO Transthoracic, Real-Time 2D With Doppler And Color Completed Flow 01/05/2019 17287 ECHO Transthoracic, Real-Time 2D With Doppler And Color Completed Flow 12/11/2018 70867 Interrogation Implant Cardiovasc Monitor System Incl Completed Analysis Int 12/11/2018 96932 Interrogation Implant Cardiovasc Monitor System Incl Completed Analysis Int 12/11/2018 25374 Pace Maker Eval W/Iterative Adjustment Multiple Lead Completed Pacemaker 12/11/2018 26762 Pace Maker Eval W/Iterative Adjustment Multiple Lead Completed Pacemaker 11/11/2018 24265 Echocardiogram, Limited Study Completed 11/10/2018 32834 EKG, Interpretation Only Completed 10/29/2018 84218 Removal Devitalization Tissue Wound Less Than Equal 20 Completed Square CM 10/07/2018 02797 ECHO Transthorasic Realtime 2D W Doppler & Color Flow Completed Hosp 10/05/2018 63457 Nerve Conduction 09-10 Studies Completed 10/05/2018 94013 Needle Electromyography Each Extremity W/Related Completed Paraspinal Areas 09/25/2018 23852 EKG Tracing & Interpretation Completed Medical Devices Description No Information Available Encounters Type Date Location Provider Dx Diagnosis Office Visit 02/21/2019 [facility] Asia Dye, I11.0 Hypertensive heart 9:30a D.O. disease with heart failure E11.8 Type 2 diabetes mellitus with unspecified complications D12.8 Benign neoplasm of rectum E78.5 Hyperlipidemia, unspecified Office Visit 02/17/2019 8:00a 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 I50.9 Heart failure, unspecified I35.0 Nonrheumatic aortic (valve) stenosis I34.0 Nonrheumatic mitral (valve) insufficiency Z79.02 residential (current) use of antithrombotics/antiplatelets Z95.0 Presence of cardiac pacemaker Z01.810 Encounter for preprocedural cardiovascular examination K62.5 Hemorrhage of anus and rectum Office Visit 02/10/2019 Surgical Flavio Kothari K62.5 Hemorrhage of 7:00a [facility] Juvencio anus and rectum Dialysis Technician Office Visit 02/09/2019 [facility] Care Iris Parson E11.622 Type 2 diabetes 9:15a Center AT [facility] Carmita, VACATION GUIDE mellitus with other skin ulcer 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 knee Office Visit 01/22/2019 [facility] Asia I11.0 Hypertensive heart 10:00a Ana Maria DyeO. 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 Z95.0 Presence of cardiac pacemaker E11.8 Type 2 diabetes mellitus with unspecified complications N17.9 Acute kidney failure, unspecified I10 Essential (primary) hypertension Z98.61 Coronary angioplasty status T82.120A Displacement of cardiac electrode, initial encounter Office Visit 11/11/2018 3:51p [facility] Tone Ernandez, R53.1 Weakness M.DJose I44.7 Left bundle-branch block, unspecified R94.39 Abnormal result of other cardiovascular function study 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 I35.0 Nonrheumatic aortic (valve) stenosis I34.0 Nonrheumatic mitral (valve) insufficiency R94.31 Abnormal electrocardiogram [ECG] [EKG] R07.9 Chest pain, unspecified Office Visit 11/11/2018 [facility] Alexsandra I44.7 Left bundle-branch 9:30a Assoc,pc KAVIN Nolasco block, unspecified Hospitalists Office Visit 11/09/2018 [facility] Kristan Glover, R55 Syncope and 10:35a Assoc,pc DO collapse Hospitalists N17.9 Acute kidney failure, unspecified R74.0 Nonspec elev of levels of transamns & lactic acid dehydrgnse E11.9 Type 2 diabetes mellitus without complications E78.5 Hyperlipidemia, unspecified Office Visit 10/27/2018 3:30p [facility] Analia Olmstead, I25.10 Aths[facility] heart Of [facility] VACATION GUIDE disease of tetlin coronary artery w/o ang pctrs N17.9 Acute kidney failure, unspecified I50.42 Chronic combined systolic and diastolic hrt fail I34.0 Nonrheumatic mitral (valve) insufficiency Office Visit 10/13/2018 1:00p [facility] Analia Olmstead, N17.9 Acute kidney Of [facility] VACATION GUIDE failure, unspecified E11.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 with hyperglycemia 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 I34.0 Nonrheumatic mitral (valve) insufficiency Office Visit 10/08/2018 2:35p [facility] Rajni Inman I50.9 Heart failure, Of [facility] M.DJose unspecified Office Visit 10/07/2018 3:00p [facility] Rajni Inman I50.9 Heart failure, Of [facility] M.Ana Maria unspecified N18.9 Chronic kidney disease, unspecified I34.0 Nonrheumatic mitral (valve) insufficiency I35.0 Nonrheumatic aortic (valve) stenosis E78.5 Hyperlipidemia, unspecified Office Visit 10/03/2018 10:32a [facility] Heath Campo R53.1 Weakness Assoc, Hospitalists MD Gabrielle N17.9 Acute kidney failure, unspecified E11.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 with hyperglycemia R79.89 Other specified abnormal findings of blood chemistry E87.1 Hypo-osmolality and hyponatremia Office Visit 09/25/2018 2:30p [facility] Laura Kothari I25.10 [facility] heart [facility] Foster, N.P. disease of tetlin coronary artery w/o ang pctrs I50.42 Chronic [...] Atherosclerotic heart disease of Tone Ernandez M.D. tet[place] coronary artery without angina pectoris 02/10/2019 I50.9 Heart failure, unspecified Tone Ernandez M.D. 02/10/2019 K62.5 Hemorrhage of anus and rectum Flavio Henning MD 02/10/2019 I35.0 Nonrheumatic aortic (valve) stenosis Tone Ernandez M.D. 02/10/2019 I34.0 Nonrheumatic mitral (valve) Tone Ernandez M.D. insufficiency 02/10/2019 Z79.02 residential (current) use of Tone Ernandez M.D. antithrombotics/antiplatelets 02/10/2019 Z95.0 Presence of cardiac pacemaker Tone Ernandez M.D. 02/10/2019 Z01.810 Encounter for preprocedural Tone Ernandez M.D. cardiovascular examination 02/10/2019 K62.5 Hemorrhage of anus and rectum Tone Ernandez M.D. 02/09/2019 E11.622 Type 2 diabetes mellitus with other Iris Vizcarra, KAVIN skin ulcer 02/09/2019 L97.529 Non-pressure chronic ulcer [...] 02/03/2019 K62.5 Hemorrhage of anus and rectum Isauro Hernandez.O. 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 02/03/2019 G47.33 Obstructive sleep apnea (adult) Asia Dye D.O. (pediatric) 02/03/2019 I25.10 Atherosclerotic heart disease of Isauro Hernandez.Raven. tetlin coronary artery without angina pectoris 02/03/2019 E78.5 Hyperlipidemia, unspecified Asia Dye D.O. 01/28/2019 M17.12 Unilateral primary osteoarthritis, Cas Khalil MD left knee 01/27/2019 R53.1 Weakness MOUNA Linn 01/27/2019 Z95.0 Presence of cardiac pacemaker Malka Ozuna MS 01/27/2019 I50.42 Chronic combined systolic Malka Laith MS (congestive) and diastolic (conges 01/27/2019 I25.10 Atherosclerotic heart disease of Malkakristine Ozuna MS [place] coronary artery with 01/27/2019 E11.8 Type 2 diabetes mellitus with Malkakristine Ozuna MS unspecified complications 01/27/2019 I10 Essential (primary) hypertension Malka Ozuna MS 01/27/2019 K59.02 Outlet dysfunction constipation Malkakristine Ozuna MS 01/22/2019 I11.0 Hypertensive heart disease with Asia Hardik, D.O. heart failure 01/22/2019 I50.42 Chronic combined systolic Asia Hardik, D.O. (congestive) and diastolic (conges 01/22/2019 E11.8 Type 2 diabetes mellitus with Asia Hardik, D.O. unspecified complications 01/22/2019 I25.10 Atherosclerotic heart disease of Asia Maddenr, D.O. tet[place] coronary artery with 01/22/2019 Z95.0 Presence of cardiac pacemaker Asia Dye, D.O. 01/05/2019 Z95.0 Presence of cardiac pacemaker [...] Atherosclerotic heart disease of Rajni Inman M.D. [place] coronary artery with 12/11/2018 Z95.0 Presence of [...] study 11/11/2018 I44.7 Left bundle-branch block, Alexsandra Constance, KAVIN unspecified 11/11/2018 I25.10 Athscl heart disease of tetlin Tone Ernandez M.D. coronary artery w/o ang pctrs 11/11/2018 I35.0 Nonrheumatic aortic (valve) stenosis Tone Ernandez M.D. 11/11/2018 I34.0 Nonrheumatic mitral (valve) Tone Ernandez M.D. insufficiency 11/11/2018 R94.31 Abnormal electrocardiogram [ECG] Tone Ernandez M.D. [EKG] 11/11/2018 R07.9 Chest pain, unspecified Tone Ernandez M.D. 11/10/2018 R94.31 Abnormal electrocardiogram [ECG] Keyon Durand M.D. [EKG] 11/09/2018 R55 Syncope and collapse Kristan Glover, DO 11/09/2018 N17.9 Acute kidney failure, unspecified [...] 10/27/2018 I25.10 Atherosclerotic heart disease of Analia Thuman, VACATION GUIDE tetlin coronary artery with 10/27/2018 N17.9 Acute kidney failure, unspecified Analia Thuman, VACATION GUIDE 10/27/2018 I50.42 Chronic combined systolic Analia Thuman, VACATION GUIDE (congestive) and diastolic (conges 10/27/2018 I34.0 Nonrheumatic mitral (valve) Analia Thuman, VACATION GUIDE insufficiency 10/13/2018 N17.9 Acute kidney failure, unspecified Analia Thuman, VACATION GUIDE 10/13/2018 E11.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 with Analia Thuman, VACATION GUIDE hyperglycemia 10/13/2018 I25.10 Atherosclerotic heart disease of Analia Thuman, VACATION GUIDE tetlin coronary artery with 10/13/2018 I50.42 Chronic combined systolic Analia Thuman, VACATION GUIDE (congestive) and diastolic (conges 10/13/2018 I34.0 Nonrheumatic mitral (valve) Analia Thuman, VACATION GUIDE insufficiency 10/08/2018 I50.9 Heart failure, unspecified Rajni [...] Atherosclerotic heart disease of Keyon Durand M.D. [place] coronary artery with 09/25/2018 I25.10 Atherosclerotic heart disease of Laura Krause N.Sarahi tetlin coronary artery with 09/25/2018 I50.42 Chronic combined systolic Laura Krause, N.P. (congestive) and diastolic (conges 09/25/2018 E11.8 Type 2 diabetes mellitus with Laura Krause, N.P. unspecified complications 09/25/2018 G47.33 Obstructive sleep apnea (adult) Laura Krause, N.P. (pediatric) 09/25/2018 I34.0 Nonrheumatic mitral (valve) Laura Krause N.P. insufficiency Plan of Treatment Future Appointment(s):05/14/2019 3:30 pm - Rajni Inman M.D. at [facility]05/14/2019 3:00 pm - Ica Pacer Schedule at [facility]04/26/2019 2:00 pm - Ica ECHO Schedule at [facility]2019 10:45 am - Jose Martin M.D. at [facility]04/01 1:15 pm - Cas Khalil MD at [facility]2018 - Rajni Inman M.D.I50.42 Chronic combined systolic (congestive) and diastolic (congesComments:Lungs nearly clear on exam.Follow up:We will call you with lab values.I35.0 Nonrheumatic aortic (valve) stenosisNew Orders: Echocardiogram, Ordered: 03/22/19Comments:S/p TAVR.I34.0 Nonrheumatic mitral ( valve) insufficiencyNew Orders:Echocardiogram, Ordered: 03/22/19Comments:s/p Michaelle clip.Z95.2 Presence of prosthetic heart valveNew Orders:Echocardiogram, Ordered: 03/22/19Z95.0 Presence of cardiac pacemakerComments:Pacing the atrium.Follow up:Pacer office April or May OV April or may with or after pacer check.K63.5 Polyp of colonComments:No active bleeding.OK to proceed when surgeons ready. Functional Status Description No Information Available Mental Status Description No Information Available Referrals Refer to Reason for Referral Status Appt Date Bharat Richardson MD Sent [address] [place] [address] [phone]
--- NOTE | 2019-05-09 06:02 | ED ---
Altered Mental Status - HPI Summary HPI Summary: Pt. is an 78 y.o male who presents to the ER for AMS. Pt. resides at home with his . states she went to bring coffee to pt. around 0530 and she states he was not speaking to her and seemed to not know who she was. EMS called and pt.'s glucose noted to be 30. Pt. given oral glucose and started on D10 and mental status improved. states in the ED pt. is back to his baseline. states pt. started to have a decrease in appetite yesterday but did eat dinner before given night time insulin. Pt. denies h/a, cp, sob, abd. pain, V/D, urinary sxs. Sxs are moderate in severity. No current modifying factors. - History Of Current Complaint Chief Complaint: EDGeneral Stated Complaint: SYNCOPE PER EMS Time Seen by Provider: 05/09/19 05:48 Hx Obtained From: Patient, Family/Animal Services Officer - Allergies/Home Medications Allergies/Adverse Reactions: Allergies Allergy/AdvReac Type Severity Reaction Status Date / Time sulfamethoxazole Allergy Intermediate See Comment Verified 11/11/18 15:05 [From Bactrim] trimethoprim [From Bactrim] Allergy Intermediate See Comment Verified 11/11/18 15:05 PMH/Surg Hx/FS Hx/Imm Hx Previously Healthy: Yes Endocrine/Hematology History: Reports: Hx Diabetes Denies: Hx Anticoagulant Therapy, Hx Thyroid Disease, Hx Anemia Cardiovascular History: Reports: Hx Hypercholesterolemia, Hx Hypertension, Hx Myocardial Infarction, Hx Pacemaker/ICD, Hx Valvular Heart Disease, Other Cardiovascular Problems/Disorders - aortic stenosis, diastolic dysfunction Denies: Hx Angina, Hx Congestive Heart Failure, Hx Coronary Artery Disease, Hx Deep Vein Thrombosis Respiratory History: Reports: Hx Sleep Apnea Denies: Hx Asthma, Hx Chronic Obstructive Pulmonary Disease (COPD), Hx Lung Cancer, Hx Pneumonia, Hx Pulmonary Embolism GI History: Denies: Hx Gall Bladder Disease, Hx Gastrointestinal Bleed, Hx Jaundice, Hx Ulcer, Hx Urosepsis History: Denies: Hx Kidney Stones, Hx Renal Disease Musculoskeletal History: Reports: Hx Arthritis, Other Musculoskeletal History - LEFT KNEE PAIN R/T ATHRITIS Sensory History: Reports: Hx Cataracts - BILATERAL, Other Sensory Impairments - DECREASED SENSATION IN FEET AND LEGS Denies: Hx Contacts or Glasses, Hx Hearing Aid Opthamlomology History: Reports: Hx Cataracts - BILATERAL, Other Sensory Impairments - DECREASED SENSATION IN FEET AND LEGS Denies: Hx Contacts or Glasses Neurological History: Denies: Hx Dementia, Hx Headaches, Hx Migraine, Hx Seizures, Hx Transient Ischemic Attacks (TIA) Psychiatric History: Denies: Hx Anxiety, Hx Depression, Hx Panic Disorder, Hx Schizophrenia, Hx Bipolar Disorder - Surgical History Surgery Procedure, Year, and Place: 2008 LEFT GREAT TOE SURGERY [facility]. 01/2014 BILATERAL CATARACT [facility]. 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 Pacer Hx Anesthesia Reactions: No Infectious Disease History: No Infectious Disease History: Denies: Hx Clostridium Difficile, Hx Hepatitis, Hx Human Immunodeficiency Virus (HIV), Hx of Known/Suspected MRSA, Hx Shingles, Hx Tuberculosis, Hx Known/ Suspected VRE, Hx Known/Suspected VRSA, History Other Infectious Disease, Traveled Outside the [place] in Last 30 Days - Family History Known Family History: Positive: Cardiac Disease, Hypertension, Diabetes - Social History Occupation: Retired Lives: With Family Alcohol Use: None Hx Substance Use: No Substance Use Type: Reports: None Hx Tobacco Use: No Smoking Status (MU): Never Smoked Tobacco Have You Smoked in the Last Year: No Review of Systems Constitutional: Negative Negative: Fever Eyes: Negative ENT: Negative Cardiovascular: Negative Respiratory: Negative Gastrointestinal: Negative Genitourinary: Negative Musculoskeletal: Negative Skin: Negative Neurological: Other - AMS All Other Systems Reviewed And Are Negative: Yes Physical Exam Triage Information Reviewed: Yes Vital Signs On Initial Exam: Initial Vitals Temp Pulse Resp BP Pulse Ox 96.5 F 87 20 126/74 98 05/09/19 05:47 05/09/19 05:47 05/09/19 05:47 05/09/19 05:47 05/09/19 05:47 Vital Signs Reviewed: Yes Appearance: Positive: Well-Appearing - Pt. sitting up in bed in NAD. present. Skin: Positive: Warm, Dry Head/Face: Positive: Normal Head/Face Inspection Eyes: Positive: Normal, EOMI, TONY Neck: Positive: Supple Respiratory/Lung Sounds: Positive: Clear to Auscultation, Breath Sounds Present Cardiovascular: Positive: Normal, RRR Abdomen Description: Positive: Nontender, Soft Musculoskeletal: Positive: Normal, Strength/ROM Intact Neurological: Positive: Normal, CN Intact II-III, Finger to Nose - Normal, Facial Symmetry, Speech Normal. Negative: Alert, Oriented to Person Place, Time - Unaware of date which states is normal, Cerebellar Dysfunction, Facial Droop, Slurred Speech, Pronator Drift Present Psychiatric: Positive: Affect/Mood Appropriate Procedures - Sedation Patient Received Moderate/Deep Sedation with Procedure: No Diagnostics - Vital Signs Vital Signs Temp Pulse Resp BP Pulse Ox 05/09/19 05:47 96.5 F 87 20 126/74 98 - Laboratory Result Diagrams: 05/09/19 07:16 05/09/19 06:32 Lab Statement: Any lab studies that have been ordered have been reviewed, and results considered in the medical decision making process. Altered Mental Statu Course/Dx - Course Course Of Treatment: Pt. presenting after an episode of hypoglycemia. Glucose improved upon arrival. Pt. is afebrile with stable VS. Pt. has no vocal deficits. notes that pt. recently returned home after being in rehab after cardiac surgery he had a few months ago. states he has home health nurse and PT coming to the house. notes that his appetite was decreased yesterday. ECG done at 0612 shows a paced rhythm of 80bpm. CXR is negative for acute findings per radiology. Labs unremarkable other than mild elevation in WBC. U/a negative for infection. Pt. eating and drinking in the ED and is feeling much better. Attempted to ambulate pt. with walker but pt. too weak to get up. notes this is not uncommon since returning from rehab. and pt. requesting to be dc home at this time. Advised to call pcp tomorrow for close f.u in 1-2 days. Glucose has stayed in the 90's in ED. Advised to hold before meals insulin if pt. skips meal. Will return to er if sxs change or worsen. - Diagnoses Differential Diagnosis/HQI/PQRI: Hypoxia, Metabolic Disorder, Postictal State, Sepsis, TIA Provider Diagnoses: Hypoglycemia Discharge ED - Sign-Out/Discharge Documenting (check all that apply): Patient Departure - Discharge Plan Condition: Improved Disposition: HOME Patient Education Materials: Hypoglycemia in a Person with Diabetes (ED) Referrals: Roque Arevalo MD [Primary Care Provider] - Additional Instructions: Please see your PCP in 1-2 days for recheck Do not use fast acting insulin if you skip a meal Check sugar level frequently Return to ER if symptoms change or worsen - Billing Disposition and Condition Condition: IMPROVED Disposition: Home
[2019-05-09 06:29] LABS: Urine Appearance Clear; Urine Bilirubin Negative (Negative); Urine Blood Negative (Negative); Urine Color Yellow; Urine Glucose 1+(50 mg/dL) (Negative); Urine Ketones Negative (Negative); Urine Nitrite Negative (Negative); Urine Protein Negative (Negative); Urine Specific Gravity 1.014 (1.010-1.030); Urine Urobilinogen Negative (Negative)
[2019-05-09] MEDS ORDERED: NS 0.9% 500 ML* 500 ML IV ONE (06:41)
[2019-05-09 07:10] LABS: Albumin 3.7 g/dL (3.2-5.2); CO2 Carbon Dioxide 38 mmol/L (22-32); Calcium 9.7 mg/dL (8.6-10.3); Chloride 96 mmol/L (101-111); Sodium 140 mmol/L (135-145)
[2019-05-09 07:13] LABS: Troponin I 0.02 ng/mL (<0.04)
[2019-05-09 07:16] LABS: ALT 19 U/L (7-52); Albumin/Globulin Ratio 1.5 (1-3); Alkaline Phosphatase 50 U/L (34-104); BUN/Creatinine Ratio 18.2 (8-20); Blood Urea Nitrogen 20 mg/dL (6-24); EGFR African American 77.9 (>60); EGFR Non-African American 64.4 (>60); Globulin 2.4 g/dL (2-4); Glucose 99 mg/dL (70-100); Total Protein 6.1 g/dL (6.4-8.9)
[2019-05-09 07:17] LABS: Anion Gap 6 mmol/L (2-11)
[2019-05-09 07:24] LABS: TSH (Thyroid Stimulating Horm) 2.19 mcIU/mL (0.34-5.60)
[2019-05-09 07:40] LABS: ABS Eosinophils 0.1 10^3/ul (0-0.6); ABS Lymphocytes 1.3 10^3/ul (1.0-4.8); ABS Monocytes 1.1 10^3/ul (0-0.8); ABS Neutrophils 8.7 10^3/ul (1.5-7.7); Eosinophil % 1.2 %; Hematocrit 44 % (42-52); Hemoglobin 14.4 g/dL (14.0-18.0); Lymphocyte % 11.7 %; Mean Corpuscular HGB Conc 32 g/dL (31-36); Mean Corpuscular Hemoglobin 29 pg (27-31); Mean Corpuscular Volume 91 fL (80-94); Nucleated Red Blood Cells % 0.1; Platelet Count 235 10^3/uL (150-450); Red Blood Count 4.89 10^6 /uL (4.18-5.48); Red Cell Distribution Width 16 % (10-15); White Blood Count 11.4 10^3/uL (3.5-10.8)
[2019-05-09 10:24] VITALS: BP 111/81
== END 2019-05-09 10:58 | disposition home or self-care (01) ==
LOC: ED 05:38
DX: E11.649 Type 2 diabetes mellitus with hypoglycemia without coma (principal); E78.00 Pure hypercholesterolemia, unspecified; I10 Essential (primary) hypertension; I25.2 Old myocardial infarction; Z95.2 Presence of prosthetic heart valve; Z95.810 Presence of automatic (implantable) cardiac defibrillator; Z88.1 Allergy status to other antibiotic agents; Z88.2 Allergy status to sulfonamides
CPT/HCPCS: 36415; 71045; 80053; 81003; 83735; 84443; 84484; 85025; 93005; 99283

== ENCOUNTER 2019-06-04 22:34 | Emergency (ER) | payer MEDICARE ==
--- NOTE | 2019-06-04 23:34 | ED ---
Dizziness - HPI Summary HPI Summary: Patient is a 78 y/o M presenting to [facility] via EMS with complaints of dizziness. He states that Sx onset around 2100 06/04/19. Patient reports he was sitting in recliner, stood up, and became dizzy. Dizziness is resolved at present. Patient has not attempted to stand up since his episode of dizziness. He characterizes the dizziness as a room-spinning sensation. N/V are denied. He reports no similar previous episodes. Patient has pacemaker present in left chest. PMHx of stroke, seizures is denied. Home medications and allergies are reviewed. Vitals in room are pulse 70, o2 sat 97 on RA, BP 107/68. is present in the room. - History Of Current Complaint Chief Complaint: EDWeakness Stated Complaint: DIZZY, Time Seen by Provider: 06/04/19 23:25 Hx Obtained From: Patient Onset/Duration: Resolved Timing: Intermittent Episode Lasting Character: Room Spinning, Dizzy Aggravating Factor(s): Other - standing up Associated Signs And Symptoms: Negative: Nausea, Vomiting - Allergies/Home Medications Allergies/Adverse Reactions: Allergies Allergy/AdvReac Type Severity Reaction Status Date / Time sulfamethoxazole Allergy Intermediate See Comment Verified 06/04/19 22:42 [From Bactrim] trimethoprim [From Bactrim] Allergy Intermediate See Comment Verified 06/04/19 22:42 PMH/Surg Hx/FS Hx/Imm Hx Endocrine/Hematology History: Reports: Hx Diabetes Denies: Hx Anticoagulant Therapy, Hx Thyroid Disease, Hx Anemia Cardiovascular History: Reports: Hx Hypercholesterolemia, Hx Hypertension, Hx Myocardial Infarction, Hx Pacemaker/ICD, Hx Valvular Heart Disease, Other Cardiovascular Problems/Disorders - aortic stenosis, diastolic dysfunction Denies: Hx Angina, Hx Congestive Heart Failure, Hx Coronary Artery Disease, Hx Deep Vein Thrombosis Respiratory History: Reports: Hx Sleep Apnea Denies: Hx Asthma, Hx Chronic Obstructive Pulmonary Disease (COPD), Hx Lung Cancer, Hx Pneumonia, Hx Pulmonary Embolism GI History: Denies: Hx Gall Bladder Disease, Hx Gastrointestinal Bleed, Hx Jaundice, Hx Ulcer, Hx Urosepsis History: Denies: Hx Kidney Stones, Hx Renal Disease Musculoskeletal History: Reports: Hx Arthritis, Other Musculoskeletal History - LEFT KNEE PAIN R/T ATHRITIS Sensory History: Reports: Hx Cataracts - BILATERAL, Other Sensory Impairments - DECREASED SENSATION IN FEET AND LEGS Denies: Hx Contacts or Glasses, Hx Hearing Aid Opthamlomology History: Reports: Hx Cataracts - BILATERAL, Other Sensory Impairments - DECREASED SENSATION IN FEET AND LEGS Denies: Hx Contacts or Glasses Neurological History: Denies: Hx Dementia, Hx Headaches, Hx Migraine, Hx Seizures, Hx Transient Ischemic Attacks (TIA) Psychiatric History: Denies: Hx Anxiety, Hx Depression, Hx Panic Disorder, Hx Schizophrenia, Hx Bipolar Disorder - Surgical History Surgery Procedure, Year, and Place: 2008 LEFT GREAT TOE SURGERY [facility]. 01/2014 BILATERAL CATARACT [facility]. 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 Pacer Hx Anesthesia Reactions: No Infectious Disease History: No Infectious Disease History: Denies: Hx Clostridium Difficile, Hx Hepatitis, Hx Human Immunodeficiency Virus (HIV), Hx of Known/Suspected MRSA, Hx Shingles, Hx Tuberculosis, Hx Known/ Suspected VRE, Hx Known/Suspected VRSA, History Other Infectious Disease, Traveled Outside the in Last 30 Days - Family History Known Family History: Positive: Cardiac Disease, Hypertension, Diabetes - Social History Alcohol Use: None Hx Substance Use: No Substance Use Type: Reports: None Hx Tobacco Use: No Smoking Status (MU): Never Smoked Tobacco Have You Smoked in the Last Year: No Review of Systems Negative: Vomiting, Nausea Neurological: Other - positive - dizziness, since resolved All Other Systems Reviewed And Are Negative: Yes Physical Exam - Summary Physical Exam Summary: Appearance: Well-appearing, Well-nourished, lying in bed comfortably Skin: Warm, dry, no obvious rash Eyes: sclera anicteric, no conjunctival pallor ENT: mucous membranes moist, pharynx appears normal Neck: Supple, nontender Respiratory: Clear to auscultation, no signs of respiratory distress Cardiovascular: Normal S1, S2. No murmurs. Normal distal pulses in tibial and radial bilaterally. Abdomen: Soft, nontender, normal active bowel sounds present Musculoskeletal: Normal, Strength/ROM Intact Neurological: A&Ox3, awake and alert, mentation is normal, speech is fluent and appropriate, Level of consciousness nml. The patient is alert and oriented. Cranial nerves are grossly intact. Gaze is conjugate and without nystagmus. Peripheral vision is intact to confrontation. There are no gross sensory abnormalities to light touch. There is no truncal or fine motor ataxia. Gait is normal. Psychiatric: affect is normal, does not appear anxious or depressed Triage Information Reviewed: Yes Vital Signs On Initial Exam: Initial Vitals Temp Pulse Resp BP Pulse Ox 96.8 F 69 16 125/64 95 06/04/19 22:39 06/04/19 22:39 06/04/19 22:39 06/04/19 22:39 06/04/19 22:39 Vital Signs Reviewed: Yes Procedures - Sedation Patient Received Moderate/Deep Sedation with Procedure: No Diagnostics - Vital Signs Vital Signs Temp Pulse Resp BP Pulse Ox 06/04/19 23:00 62 16 92 06/04/19 22:41 68 15 125/64 96 06/04/19 22:39 96.8 F 69 16 125/64 95 - Laboratory Lab Statement: Any lab studies that have been ordered have been reviewed, and results considered in the medical decision making process. Dizzy Course/Dx - Course Course Of Treatment: Patient is a 78 y/o M presenting to [facility] via EMS with complaints of dizziness. He states that Sx onset around 2100 06/04/19. Patient reports he was sitting in recliner, stood up, and became dizzy. Dizziness is resolved at present. Patient has not attempted to stand up since his episode of dizziness. He characterizes the dizziness as a room-spinning sensation. N/V are denied. He reports no similar previous episodes. Neurological: A&Ox3, awake and alert, mentation is normal, speech is fluent and appropriate, Level of consciousness nml. The patient is alert and oriented. Cranial nerves are grossly intact. Gaze is conjugate and without nystagmus. Peripheral vision is intact to confrontation. There are no gross sensory abnormalities to light touch. There is no truncal or fine motor ataxia. Gait is normal. Patient was discharged to home and will follow up with PCP within three days. - Diagnoses Provider Diagnoses: Peripheral vertigo Discharge ED - Sign-Out/Discharge Documenting (check all that apply): Patient Departure - discharge - Discharge Plan Condition: Good Disposition: HOME Patient Education Materials: Benign Paroxysmal Positional Vertigo (ED) Referrals: Roque Arevalo MD [Primary Care Provider] - 3 Days (if not better) Additional Instructions: The dizziness you experienced is known as vertigo and happens when you develop some type of distubance deep in the middle ear. It is not a dangerous condition but can be quite troublesome as far as getting around and moving as that will often bring it back. Usually it subsides after a few days to a week, and is just treated with rest and moving carefully and slowly. - Billing Disposition and Condition Condition: GOOD Disposition: Home - Attestation Statements Document Initiated by Skyler: Yes Documenting Scribe: POLA CRUZ Provider For Whom Skyler is Documenting (Include Credential): BRINA MABRY MD Scribmathieu Attestation: IPOLA, scribed for BRINA MABRY MD on 06/05/19 at 0532. Scribe Documentation Reviewed: Yes Provider Attestation: The documentation as recorded by the POLA barksdale accurately reflects the service I personally performed and the decisions made by me, BRINA MABRY MD Status of Scribe Document: Viewed
[2019-06-05 02:39] VITALS: BP 0/0
--- OUTSIDE RECORDS SUMMARY | 2019-06-08 15:19 | XMS REPORT ---
:1940 Author Organization [facility] Care Team Providers Name Role Phone Unavailable Unavailable Unavailable Problems Condition Condition Condition Status Onset Resolution Last Treating Comments Name Details Category Date Date Treatment Clinician Date Pain frequent Pain Mgmt Resolve 2018-072019-05-24 Марина pain d 0-08 14:15:00 Alta 10:15: [id number] Respiratory dyspnea Respirator Active 2018-07 Марина present y 0-08 Alta 10:15: [id number] 00 Respiratory CPAP Respirator Active 2018-07 Марина treatments y 0-08 Alta in home 10:15: [id number] 00 Endo/Sundar insulin Endo/Sundar Active 2018-07 Марина admn 0-08 Alta dependence 10:15: [id number] 00 Endo/Sundar knowledge/s Endo/Sundar Active 2018-07 Марина kill 0-08 Alta deficit: pt 10:15: [id number] 00 Endo/Sundar diabetic Endo/Sundar Active 2018-07 Марина foot care 0-08 Alta 10:15: [id number] 00 Endo/Sundar anti-coagul Endo/Sundar Active 2018-07 Марина ation 0-08 Alta therapy 10:15: [id number] 00 Sensory impaired Sensory Active 2018-07 Марина hearing 0-08 Alta 10:15: [id number] 00 Integument skin Integument Active 2018-07 Марина integrity 0-08 Alta risk 10:15: [id number] 00 Nutrition nutritional Nutrition Active 2018-07 Марина restriction 0-08 Alta s 10:15: [id number] 00 Elimination urinary Eliminatio Resolve 2018-072019-05-21 Марина incontinenc n d 0-08 09:25:00 Anna Marie e 10:15: [id number] 00 Neuro confusion Neuro/Emot Active 2018-07 Марина present ion 0-08 Alta 10:15: [id number] 00 Neuro impaired Neuro/Emot Active 2018- Марина decision-ma ion 0-08 [place]ta sarah 10:15: [id number] 00 Neuro memory Neuro/Emot Active 2018- Марина deficit ion 0-08 Alta needing 10:15: [id number] supervision 00 Activity ADL Activity Active 2018- Марина assistance 0-08 Alta required 10:15: [id number] 00 Activity self-care Activity Active 2018-07 Марина deficit 0-08 Alta 10:15: [id number] 00 Safety sanitation Safety Active 2018- Марина hazards 0-08 Alta present 10:15: [id number] 00 Safety cannot be Safety Active 2018-07 Марина left alone 0-08 Alta 10:15: [id number] 00 Safety knowledge/s Safety Active 2018-07 Марина kill 0-08 [place] deficit: pt 10:15: [id number] 00 Safety knowledge/s Safety Active 2018-07 Марина kill 0-08 [place] deficit: cg 10:15: [id number] 00 Safety fall risk Safety Active 2018- Марина factor 0-08 Alta present 10:15: [id number] 00 Safety risk for Safety Active 2018- Марина hospitaliza 0-08 [place] tion 10:15: [id number] 00 Medication oral med Meds Resolve 2018-072019-05-21 Марина assistance d 0-08 09:25:00 Alta required 10:15: [id number] 00 Medication injectable Meds Resolve 2018-072019-05-21 Марина med d 0-08 09:25:00 [place] assistance 10:15: [id number] required 00 Medication knowledge/s Meds Active 2018-07 Марина kill 0-08 [place] deficit: pt 10:15: [id number] 00 Medication potential Meds Active 2018- Марина clinically 0-08 Alta significant 10:15: [id number] medication 00 issue Musculoskel transfer Musculoske Active 2018- Марина etal assistance letal 0-08 Alta required 10:15: [id number] 00 Musculoskel requires Musculoske Active 2018- Марина etal human letal 0-08 Alta assist to 10:15: [id number] leave home 00 Elimination constipatio Eliminatio Resolve 2018-072019-05-21 Esther n n d 0-11 09:25:00 Carrier RN 20:00: 00 OT: Self self-care OT: Active 2018-07 Tiff Care deficit Self-Care 0-22 Black 13:30: [id number] 00 Integument knowledge/s Integument Active 2018-07 Esther burks 0-22 Carrier RN deficit: pt 14:00: 00 Integument knowledge/s Integument Active 2018-07 Esther burks 0-22 Carrier RN deficit: cg 14:00: 00 Safety can be left Safety Active 2018-07 Esther alone for 0-28 Carrier RN only short 14:20: periods 00 Medication knowledge/s Meds Active 2018-07 Esther burks 1- Carrier RN deficit: cg 12:50: 00 Cardio pacemaker/I Cardiovasc Active 2018-07 Fatuma DUNCAN ulkj 07-21 Vallely 09:25: 00 Endo/Sundar glucose Endo/Sundar Active 2018-07 Fatuma etienne 07-21 Vallely dependence 09:25: 00 Cardio edema Cardiovasc Active 2018-07 Doreen blancas 08-01 Alejandro 10:46: [id number] 00 Allergies, Adverse Reactions, Alerts Allergy Allergy Type Status Severity Reaction(s) Onset Inactive Treating Comments Name Date Date Clinician Bactrim Medication Active Unknown Reaction 2019-05 Esther Name ID Unknown -[id number] Carrier RN Medications Ordered Filled Start Stop Current Ordering Indication Dosage Frequency Signature Comments Components Medication Medication Date Date Medication? Clinician (SIG) Name Name metoprolol metoprolol 2018-07 Yes Law Unknown Unknown succinate succinate 0-08 Roque MEDINA ER 25 mg ER 25 mg tablet,exte tablet,exte nded nded release 24 release 24 hr hr HumaLOG Mix HumaLOG Mix 2018-07 2019- Yes Law Unknown Unknown 75-25 75-25 0-08 11-05 Roque MEDINA U-100 U-100 insulin 100 insulin 100 unit/mL unit/mL subcutaneou subcutaneou s pen s pen Victoza Victoza 2018-07- Yes Law Unknown Unknown 2-Brian 0.6 2-Brian 0.6 0-08 11-05 Roque MEDINA mg/0.1 mL mg/0.1 mL (18 mg/3 (18 mg/3 mL) mL) subcutaneou subcutaneou s pen s pen injector injector Aspirin Low Aspirin Low 2018-07 Yes Law Unknown Unknown Dose 81 mg Dose 81 mg 0-08 MD,Roque tablet,vivian tablet,vivian yed release yed release simvastatin simvastatin 2018-07 Yes Law Unknown Unknown 40 mg 40 mg 0-08 MD,Roque tablet tablet HumuLIN R HumuLIN R 2018-07 Yes Law Unknown Unknown U-500 U-500 1-05 Roque MEDINA (Conc) (Conc) Insulin Insulin Kwikpen 500 Kwikpen 500 unit/mL (3 unit/mL (3 mL) mL) subcutaneou subcutaneou s s Toujeo Max Toujeo Max 2018-07 Yes Law Unknown Unknown U-300 U-300 1-05 Roque MEDINA SoloStar SoloStar 300 unit/mL 300 unit/mL (3 mL) (3 mL) subcutaneou subcutaneou s insulin s insulin pen pen Vital Signs Vital Name Observation Time Observation Value Comments SYSTOLIC mm[Hg] 2019-06-07 18:09:09 122 mm[Hg] mm[Hg] Method: Sit SYSTOLIC mm[Hg] 2019-04-13 18:08:14 120 mm[Hg] mm[Hg] Method: Stand DIASTOLIC mm[Hg] 2019-06-07 18:09:09 80 mm[Hg] mm[Hg] Method: Sit DIASTOLIC mm[Hg] 2019-04-13 18:08:14 78 mm[Hg] mm[Hg] Method: Stand PULSE 2019-06-07 18:09:09 76 /min /min RESP RATE 2019-06-07 18:09:09 16 /min /min TEMP 2019-06-07 18:09:09 98.2 [degF] Procedures This patient has no known procedures. Results This patient has no known results.
--- OUTSIDE RECORDS SUMMARY | 2019-06-08 15:20 | XMS REPORT ---
:1940 Author Organization [facility] Care Team Providers Name Role Phone Unavailable Unavailable Unavailable Problems This patient has no known problems. Allergies, Adverse Reactions, Alerts Allergy Allergy Status Severity Reaction(s) Onset Inactive Treating Comments Name Type Date Date Clinician Uncoded Unknown Active Unknown Reaction 2018-12 Interface free-text allergy Medications Ordered Filled Start Stop Current Ordering Indication Dosage Frequency Signature Comments Components Medication Medication Date Date Medication? Clinician (SIG) Name Name Liraglutide Liraglutide 2014-07 No Unknown Unknown Unknown 2-11 Simvastatin Simvastatin No Unknown Unknown Unknown 8-03 aspirin, aspirin, No Unknown Unknown Unknown buffered 81 buffered 81 8-03 mg mg tablet,vivian tablet,vivian yed release yed release Insulin Insulin No Unknown Unknown Unknown Isoph/Reg Isoph/Reg 4-04 70/30 (*) 70/30 (*) metoprolol metoprolol No Unknown Unknown Unknown succinate succinate - ER 25 mg ER 25 mg tablet,exte tablet,exte nded nded release 24 release 24 hr hr Mometasone/ Mometasone/ No Unknown Unknown Unknown Formoter Formoter 04 100/5 Mdi* 100/5 Mdi* Vital Signs Vital Name Observation Time Observation Value Comments SYSTOLIC mm[Hg] 2019-01-01 18:06:32 104 mm[Hg] mm[Hg] Method: Sit DIASTOLIC mm[Hg] 2019-01-01 18:06:32 60 mm[Hg] mm[Hg] Method: Sit PULSE 2019-01-01 18:06:32 85 /min /min RESP RATE 2019-01-01 18:06:32 14 /min /min Procedures This patient has no known procedures. Results Test Description Test Time Test Comments Text Results Atomic Results Result Comments Laboratory Studies 2018-10-08 07:33:00 Identifier [id number] Result Time Unknown 2018-10-08 07:33:00 Test Item Value Reference Range Comments Unknown (test code = 2339-0) 131 mg/dL Unknown 70-100 F Ordering Physician UnknownLaboratory Ycbcbbi7094-67-84 07:41:00Identifier 71457- 6 Result Time 2018-10-07 07:41:00Unknown Test Item Value Reference Range Comments Unknown (test code = 2951-2) 134 mmol/L Unknown 135-145 F Ordering Physician UnknownLaboratory Fxlgpmf5207-91-52 07:41:00Identifier 76552- 6 Result Time 2018-10-07 07:41:00Unknown Test Item Value Reference Range Comments Unknown (test code = 2823-3) 4.1 mmol/L Unknown 3.5-5.0 F Ordering Physician UnknownLaboratory Mhuawvr9054-43-88 07:41:00Identifier 40990- 6 Result Time 2018-10-07 07:41:00Unknown Test Item Value Reference Range Comments Unknown (test code = 2345-7) 101 mg/dL Unknown 70-100 F Ordering Physician UnknownLaboratory Zfpredh6330-89-51 07:41:00Identifier 64773- 6 Result Time 2018-10-07 07:41:00Unknown Test Item Value Reference Range Comments Unknown (test code = 56684-4) 57.7 Unknown Unknown F Ordering Physician UnknownLaboratory Mzhvkny6706-42-56 07:41:00Identifier 18885- 6 Result Time 2018-10-07 07:41:00Unknown Test Item Value Reference Range Comments Unknown (test code = NullTestCode) 69.8 Unknown Unknown F Ordering Physician UnknownLaboratory Jqljstl1688-44-12 07:41:00Identifier 73809- 6 Result Time 2018-10-07 07:41:00Unknown Test Item Value Reference Range Comments Unknown (test code = 2160-0) 1.21 mg/dL Unknown 0.67-1.17 F Ordering Physician UnknownLaboratory Qlogunf6510-77-57 07:41:00Identifier 61562- 6 Result Time 2018-10-07 07:41:00Unknown Test Item Value Reference Range Comments Unknown (test code = 2075-0) 101 mmol/L Unknown 101-111 F Ordering Physician UnknownLaboratory Qqtbvqh7978-56-41 07:41:00Identifier 82679- 6 Result Time 2018-10-07 07:41:00Unknown Test Item Value Reference Range Comments Unknown (test code = 2028-9) 25 mmol/L Unknown 22-32 F Ordering Physician UnknownLaboratory Skldsvu7836-49-43 07:41:00Identifier 37817- 6 Result Time 2018-10-07 07:41:00Unknown Test Item Value Reference Range Comments Unknown (test code = 91373-1) 9.1 mg/dL Unknown 8.6-10.3 F Ordering Physician UnknownLaboratory Sitwvuq3017-07-49 07:41:00Identifier 33536- 6 Result Time 2018-10-07 07:41:00Unknown Test Item Value Reference Range Comments Unknown (test code = 3094-0) 14 mg/dL Unknown 6-24 F Ordering Physician UnknownLaboratory Ghvolkl0066-58-30 07:41:00Identifier 58674- 6 Result Time 2018-10-07 07:41:00Unknown Test Item Value Reference Range Comments Unknown (test code = 3097-3) 11.6 Unknown 8-20 F Ordering Physician UnknownLaboratory Hbwphat9612-43-51 07:41:00Identifier 07953- 6 Result Time 2018-10-07 07:41:00Unknown Test Item Value Reference Range Comments Unknown (test code = 73260-2) 8 mmol/L Unknown 2-11 F Ordering Physician UnknownLaboratory Tuvpews6345-00-75 22:12:00Identifier 73802- 6 Result Time 2018-10-05 22:12:00Unknown Test Item Value Reference Range Comments Unknown (test code = 56412-7) 355 mg/dL Unknown 70-100 F Ordering Physician UnknownLaboratory Zkdqmrs3512-01-24 04:45:00Identifier 75096- 6 Result Time 2018-10-05 04:45:00Unknown Test Item Value Reference Range Comments Unknown (test code = 1988-5) 23.24 mg/L Unknown 0-8.00 F Ordering Physician UnknownLaboratory Mviobng8121-48-57 21:41:00Identifier 45234- 6 Result Time 2018-10-04 21:41:00Unknown Test Item Value Reference Range Comments Unknown (test code = 2143-6) 6.51 mcg/dL Unknown Unknown F Ordering Physician UnknownLaboratory Woarcpl4685-75-37 04:33:00Identifier 89114- 6 Result Time 2018-10-04 04:33:00Unknown Test Item Value Reference Range Comments Unknown (test code = 30203-9) 48 pg/mL Unknown Unknown F Ordering Physician UnknownLaboratory Fyoyhyn6128-94-15 04:33:00Identifier 69051- 6 Result Time 2018-10-04 04:33:00Unknown Test Item Value Reference Range Comments Unknown (test code = 2885-2) 6.7 g/dL Unknown 6.4-8.9 F Ordering Physician UnknownLaboratory Ygabzum2498-96-19 04:33:00Identifier 80219- 6 Result Time 2018-10-04 04:33:00Unknown Test Item Value Reference Range Comments Unknown (test code = 1975-2) 0.30 mg/dL Unknown 0.2-1.0 F Ordering Physician UnknownLaboratory Rcjewdb3410-68-78 04:33:00Identifier 81764- 6 Result Time 2018-10-04 04:33:00Unknown Test Item Value Reference Range Comments Unknown (test code = 2777-1) 3.4 mg/dL Unknown 2.5-5.0 F Ordering Physician UnknownLaboratory Mxyhgow4116-16-73 04:33:00Identifier 80999- 6 Result Time 2018-10-04 04:33:00Unknown Test Item Value Reference Range Comments Unknown (test code = 67518-5) 2.0 mg/dL Unknown 1.9-2.7 F Ordering Physician UnknownLaboratory Cjqopyh0620-79-73 04:33:00Identifier 34177- 6 Result Time 2018-10-04 04:33:00Unknown Test Item Value Reference Range Comments Unknown (test code = NullTestCode) 3.2 g/dL Unknown 2-4 F Ordering Physician UnknownLaboratory Tkmbacj6532-63-60 04:33:00Identifier 41968- 6 Result Time 2018-10-04 04:33:00Unknown Test Item Value Reference Range Comments Unknown (test code = 1920-8) 15 U/L Unknown 13-39 F Ordering Physician UnknownLaboratory Nklnlln1347-77-61 04:33:00Identifier 57939- 6 Result Time 2018-10-04 04:33:00Unknown Test Item Value Reference Range Comments Unknown (test code = 6768-6) 72 U/L Unknown 34-104 F Ordering Physician UnknownLaboratory Glrbkvh2283-09-76 04:33:00Identifier 37111- 6 Result Time 2018-10-04 04:33:00Unknown Test Item Value Reference Range Comments Unknown (test code = 1759-0) 1.1 Unknown 1-3 F Ordering Physician UnknownLaboratory Xjkvytm8586-96-61 04:33:00Identifier 77280- 6 Result Time 2018-10-04 04:33:00Unknown Test Item Value Reference Range Comments Unknown (test code = 51156-2) 3.5 g/dL Unknown 3.2-5.2 F Ordering Physician UnknownLaboratory Nlifulf2105-69-26 04:33:00Identifier 72399- 6 Result Time 2018-10-04 04:33:00Unknown Test Item Value Reference Range Comments Unknown (test code = 1742-6) 12 U/L Unknown 7-52 F Ordering Physician UnknownLaboratory Veviksk2846-26-15 04:33:00Identifier 65944- 6 Result Time 2018-10-04 04:33:00Unknown Test Item Value Reference Range Comments Unknown (test code = 11607-7) 6.5 10^3/uL Unknown 3.5-10.8 F Ordering Physician UnknownLaboratory Ifdavmy2346-94-04 04:33:00Identifier 08448- 6 Result Time 2018-10-04 04:33:00Unknown Test Item Value Reference Range Comments Unknown (test code = 788-0) 14 % Unknown 10.5-15 F Ordering Physician UnknownLaboratory Ifbgkqh3071-37-14 04:33:00Identifier 11322- 6 Result Time 2018-10-04 04:33:00Unknown Test Item Value Reference Range Comments Unknown (test code = 789-8) 3.96 10^6 /uL Unknown 4.18-5.48 F Ordering Physician UnknownLaboratory Pvgswuk6628-08-30 04:33:00Identifier 97452- 6 Result Time 2018-10-04 04:33:00Unknown Test Item Value Reference Range Comments Unknown (test code = 777-3) 223 10^3/uL Unknown 150-450 F Ordering Physician UnknownLaboratory Eqzlwig2013-78-23 04:33:00Identifier 66051- 6 Result Time 2018-10-04 04:33:00Unknown Test Item Value Reference Range Comments Unknown (test code = 66468-5) 0 Unknown Unknown F Ordering Physician UnknownLaboratory Pptfpzy8704-25-49 04:33:00Identifier 59871- 6 Result Time 2018-10-04 04:33:00Unknown Test Item Value Reference Range Comments Unknown (test code = 771-6) 0 10^3/ul Unknown Unknown F Ordering Physician UnknownLaboratory Lmipgfa3553-11-51 04:33:00Identifier 38643- 6 Result Time 2018-10-04 04:33:00Unknown Test Item Value Reference Range Comments Unknown (test code = 770-8) 62.0 % Unknown Unknown F Ordering Physician UnknownLaboratory Ewefvbc5050-87-21 04:33:00Identifier 71823- 6 Result Time 2018-10-04 04:33:00Unknown Test Item Value Reference Range Comments Unknown (test code = 5905-5) 14.1 % Unknown Unknown F Ordering Physician UnknownLaboratory Glaeype1047-94-04 04:33:00Identifier 72127- 6 Result Time 2018-10-04 04:33:00Unknown Test Item Value Reference Range Comments Unknown (test code = 89583-6) 8.2 fL Unknown 7.4-10.4 F Ordering Physician UnknownLaboratory Rzihfga2168-55-16 04:33:00Identifier 23750- 6 Result Time 2018-10-04 04:33:00Unknown Test Item Value Reference Range Comments Unknown (test code = 787-2) 92 fL Unknown 80-94 F Ordering Physician UnknownLaboratory Pmevjql9976-02-04 04:33:00Identifier 98967- 6 Result Time 2018-10-04 04:33:00Unknown Test Item Value Reference Range Comments Unknown (test code = 786-4) 34 g/dL Unknown 31-36 F Ordering Physician UnknownLaboratory Byvhmru5895-05-55 04:33:00Identifier 71051- 6 Result Time 2018-10-04 04:33:00Unknown Test Item Value Reference Range Comments Unknown (test code = 785-6) 31 pg Unknown - F Ordering Physician UnknownLaboratory Duhjigz3099-77-84 04:33:00Identifier 29733- 6 Result Time 2018-10-04 04:33:00Unknown Test Item Value Reference Range Comments Unknown (test code = 736-9) 21.1 % Unknown Unknown F Ordering Physician UnknownLaboratory Xmdibav2967-27-35 04:33:00Identifier 85188- 6 Result Time 2018-10-04 04:33:00Unknown Test Item Value Reference Range Comments Unknown (test code = 718-7) 12.2 g/dL Unknown 14.0-18.0 F Ordering Physician UnknownLaboratory Dzjclmq6244-16-26 04:33:00Identifier 23245- 6 Result Time 2018-10-04 04:33:00Unknown Test Item Value Reference Range Comments Unknown (test code = 4544-3) 36 % Unknown 36-46 F Ordering Physician UnknownLaboratory Oxkfitr5020-55-69 04:33:00Identifier 55868- 6 Result Time 2018-10-04 04:33:00Unknown Test Item Value Reference Range Comments Unknown (test code = 713-8) 2.4 % Unknown Unknown F Ordering Physician UnknownLaboratory Kjipyki2298-35-10 04:33:00Identifier 98955- 6 Result Time 2018-10-04 04:33:00Unknown Test Item Value Reference Range Comments Unknown (test code = 706-2) 0.4 % Unknown Unknown F Ordering Physician UnknownLaboratory Lcolnfq4020-29-27 04:33:00Identifier 89745- 6 Result Time 2018-10-04 04:33:00Unknown Test Item Value Reference Range Comments Unknown (test code = 751-8) 4.0 10^3/ul Unknown 1.5-7.7 F Ordering Physician UnknownLaboratory Epcmqml2756-54-82 04:33:00Identifier 29517- 6 Result Time 2018-10-04 04:33:00Unknown Test Item Value Reference Range Comments Unknown (test code = 742-7) 0.9 10^3/ul Unknown 0-0.8 F Ordering Physician UnknownLaboratory Dcakmcb6616-40-34 04:33:00Identifier 24341- 6 Result Time 2018-10-04 04:33:00Unknown Test Item Value Reference Range Comments Unknown (test code = 731-0) 1.4 10^3/ul Unknown 1.0-4.8 F Ordering Physician UnknownLaboratory Uwwayxk8013-29-04 04:33:00Identifier 13175- 6 Result Time 2018-10-04 04:33:00Unknown Test Item Value Reference Range Comments Unknown (test code = 711-2) 0.2 10^3/ul Unknown 0-0.6 F Ordering Physician UnknownLaboratory Jcdznla4189-51-73 04:33:00Identifier 99656- 6 Result Time 2018-10-04 04:33:00Unknown Test Item Value Reference Range Comments Unknown (test code = 704-7) 0 10^3/ul Unknown 0-0.2 F Ordering Physician UnknownLaboratory Ctbdupl4606-41-07 21:14:00Identifier 67523- 6 Result Time 2018-10-03 21:14:00Unknown Test Item Value Reference Range Comments Unknown (test code = 3095-7) 727 mg/dL Unknown Unknown F Ordering Physician UnknownLaboratory Vlhucrx8953-73-55 21:14:00Identifier 24293- 6 Result Time 2018-10-03 21:14:00Unknown Test Item Value Reference Range Comments Unknown (test code = 2955-3) 54 mmol/L Unknown Unknown F Ordering Physician UnknownLaboratory Hkbftce7197-35-81 21:14:00Identifier 87735- 6 Result Time 2018-10-03 21:14:00Unknown Test Item Value Reference Range Comments Unknown (test code = 2161-8) 88.57 mg/dL Unknown Unknown F Ordering Physician UnknownLaboratory Jcjanxi6870-66-44 19:37:00Identifier 42023- 6 Result Time 2018-10-03 19:37:00Unknown Test Item Value Reference Range Comments Unknown (test code = 13951-1) 0.03 ng/mL Unknown Unknown F Ordering Physician UnknownLaboratory Oruegml0932-32-66 06:49:00Identifier 11676- 6 Result Time 2018-10-03 06:49:00Unknown Test Item Value Reference Range Comments Unknown (test code = NullTestCode) 5.0 Unknown 5-9 F Ordering Physician UnknownLaboratory Wpqoxud3751-24-68 06:49:00Identifier 11683- 6 Result Time 2018-10-03 06:49:00Unknown Test Item Value Reference Range Comments Unknown (test code = 86549-0) 1.011 Unknown 1.010-1.030 F Ordering Physician UnknownLaboratory Opakite8743-72-29 03:30:00Identifier 43553- 6 Result Time 2018-10-03 03:30:00Unknown Test Item Value Reference Range Comments Unknown (test code = 3016-3) 2.96 mcIU/mL Unknown 0.34-5.60 F Ordering Physician UnknownLaboratory Ggprbgy0451-79-26 03:30:00Identifier 67925- 6 Result Time 2018-10-03 03:30:00Unknown Test Item Value Reference Range Comments Unknown (test code = 2524-7) 1.2 mmol/L Unknown 0.5-2.0 F Ordering Physician Unknown
--- OUTSIDE RECORDS SUMMARY | 2019-06-08 15:20 | XMS REPORT ---
:1940 Author Organization [facility] Care Team Providers Name Role Phone Unavailable [...] Result Comments Laboratory Studies 2018-10-08 07:33:00 Identifier [id number] Result Time Unknown 2018-10-08 07:33:00 Test Item Value Reference Range Comments Unknown (test code = 2339-0) 131 mg/dL Unknown 70-100 F Ordering Physician UnknownLaboratory Splyfdw0776-36-84 07:41:00Identifier 07743- 6 Result Time 2018-10-07 07:41:00Unknown Test Item Value Reference Range Comments Unknown (test code = 2951-2) 134 mmol/L Unknown 135-145 F Ordering Physician UnknownLaboratory Nxkqexv3244-59-44 07:41:00Identifier 80985- 6 Result Time 2018-10-07 07:41:00Unknown Test Item Value Reference Range Comments Unknown (test code = 2823-3) 4.1 mmol/L Unknown 3.5-5.0 F Ordering Physician UnknownLaboratory Stwzivt0432-31-39 07:41:00Identifier 73409- 6 Result Time 2018-10-07 07:41:00Unknown Test Item Value Reference Range Comments Unknown (test code = 2345-7) 101 mg/dL Unknown 70-100 F Ordering Physician UnknownLaboratory Vdszgtn4099-15-03 07:41:00Identifier 07564- 6 Result Time 2018-10-07 07:41:00Unknown Test Item Value Reference Range Comments Unknown (test code = 97970-6) 57.7 Unknown Unknown F Ordering Physician UnknownLaboratory Gruphyi7933-54-62 07:41:00Identifier 57349- 6 Result Time 2018-10-07 07:41:00Unknown Test Item Value Reference Range Comments Unknown (test code = NullTestCode) 69.8 Unknown Unknown F Ordering Physician UnknownLaboratory Fxlvoqu2503-33-81 07:41:00Identifier 29240- 6 Result Time 2018-10-07 07:41:00Unknown Test Item Value Reference Range Comments Unknown (test code = 2160-0) 1.21 mg/dL Unknown 0.67-1.17 F Ordering Physician UnknownLaboratory Rkbgzko0784-86-72 07:41:00Identifier 17058- 6 Result Time 2018-10-07 07:41:00Unknown Test Item Value Reference Range Comments Unknown (test code = 2075-0) 101 mmol/L Unknown 101-111 F Ordering Physician UnknownLaboratory Rbeepjn6713-87-92 07:41:00Identifier 03868- 6 Result Time 2018-10-07 07:41:00Unknown Test Item Value Reference Range Comments Unknown (test code = 2028-9) 25 mmol/L Unknown 22-32 F Ordering Physician UnknownLaboratory Swnvcfq6729-33-93 07:41:00Identifier 87927- 6 Result Time 2018-10-07 07:41:00Unknown Test Item Value Reference Range Comments Unknown (test code = 88588-4) 9.1 mg/dL Unknown 8.6-10.3 F Ordering Physician UnknownLaboratory Vewhmqg4244-14-45 07:41:00Identifier 72987- 6 Result Time 2018-10-07 07:41:00Unknown Test Item Value Reference Range Comments Unknown (test code = 3094-0) 14 mg/dL Unknown 6-24 F Ordering Physician UnknownLaboratory Zlsnndz2571-02-27 07:41:00Identifier 49430- 6 Result Time 2018-10-07 07:41:00Unknown Test Item Value Reference Range Comments Unknown (test code = 3097-3) 11.6 Unknown 8-20 F Ordering Physician UnknownLaboratory Qvmunft5420-70-86 07:41:00Identifier 49505- 6 Result Time 2018-10-07 07:41:00Unknown Test Item Value Reference Range Comments Unknown (test code = 02494-7) 8 mmol/L Unknown 2-11 F Ordering Physician UnknownLaboratory Qkhcolw0556-90-95 22:12:00Identifier 60881- 6 Result Time 2018-10-05 22:12:00Unknown Test Item Value Reference Range Comments Unknown (test code = 26902-3) 355 mg/dL Unknown 70-100 F Ordering Physician UnknownLaboratory Ssgtklv2641-92-39 04:45:00Identifier 05475- 6 Result Time 2018-10-05 04:45:00Unknown Test Item Value Reference Range Comments Unknown (test code = 1988-5) 23.24 mg/L Unknown 0-8.00 F Ordering Physician UnknownLaboratory Wcdvmhv4547-11-90 21:41:00Identifier 82745- 6 Result Time 2018-10-04 21:41:00Unknown Test Item Value Reference Range Comments Unknown (test code = 2143-6) 6.51 mcg/dL Unknown Unknown F Ordering Physician UnknownLaboratory Ayygpqv7650-57-55 04:33:00Identifier 74545- 6 Result Time 2018-10-04 04:33:00Unknown Test Item Value Reference Range Comments Unknown (test code = 56616-8) 48 pg/mL Unknown Unknown F Ordering Physician UnknownLaboratory Ykbkyed4833-21-17 04:33:00Identifier 38516- 6 Result Time 2018-10-04 04:33:00Unknown Test Item Value Reference Range Comments Unknown (test code = 2885-2) 6.7 g/dL Unknown 6.4-8.9 F Ordering Physician UnknownLaboratory Faaooft1262-75-61 04:33:00Identifier 51449- 6 Result Time 2018-10-04 04:33:00Unknown Test Item Value Reference Range Comments Unknown (test code = 1975-2) 0.30 mg/dL Unknown 0.2-1.0 F Ordering Physician UnknownLaboratory Diuvrhs2677-20-94 04:33:00Identifier 11876- 6 Result Time 2018-10-04 04:33:00Unknown Test Item Value Reference Range Comments Unknown (test code = 2777-1) 3.4 mg/dL Unknown 2.5-5.0 F Ordering Physician UnknownLaboratory Dtbcjxi8751-17-47 04:33:00Identifier 23736- 6 Result Time 2018-10-04 04:33:00Unknown Test Item Value Reference Range Comments Unknown (test code = 52821-8) 2.0 mg/dL Unknown 1.9-2.7 F Ordering Physician UnknownLaboratory Gxukglf7243-93-80 04:33:00Identifier 82596- 6 Result Time 2018-10-04 04:33:00Unknown Test Item Value Reference Range Comments Unknown (test code = NullTestCode) 3.2 g/dL Unknown 2-4 F Ordering Physician UnknownLaboratory Vgqaeyp6620-37-98 04:33:00Identifier 37849- 6 Result Time 2018-10-04 04:33:00Unknown Test Item Value Reference Range Comments Unknown (test code = 1920-8) 15 U/L Unknown 13-39 F Ordering Physician UnknownLaboratory Sxrlapg2917-05-13 04:33:00Identifier 21477- 6 Result Time 2018-10-04 04:33:00Unknown Test Item Value Reference Range Comments Unknown (test code = 6768-6) 72 U/L Unknown 34-104 F Ordering Physician UnknownLaboratory Vgpbwfu1523-08-19 04:33:00Identifier 89939- 6 Result Time 2018-10-04 04:33:00Unknown Test Item Value Reference Range Comments Unknown (test code = 1759-0) 1.1 Unknown 1-3 F Ordering Physician UnknownLaboratory Onkkbtf8523-52-08 04:33:00Identifier 47113- 6 Result Time 2018-10-04 04:33:00Unknown Test Item Value Reference Range Comments Unknown (test code = 38962-7) 3.5 g/dL Unknown 3.2-5.2 F Ordering Physician UnknownLaboratory Evushsp8197-46-19 04:33:00Identifier 02678- 6 Result Time 2018-10-04 04:33:00Unknown Test Item Value Reference Range Comments Unknown (test code = 1742-6) 12 U/L Unknown 7-52 F Ordering Physician UnknownLaboratory Qgiifcz5494-69-87 04:33:00Identifier 00499- 6 Result Time 2018-10-04 04:33:00Unknown Test Item Value Reference Range Comments Unknown (test code = 30148-1) 6.5 10^3/uL Unknown 3.5-10.8 F Ordering Physician UnknownLaboratory Vkcuuww6174-21-27 04:33:00Identifier 32038- 6 Result Time 2018-10-04 04:33:00Unknown Test Item Value Reference Range Comments Unknown (test code = 788-0) 14 % Unknown 10.5-15 F Ordering Physician UnknownLaboratory Bcixtxm2885-87-83 04:33:00Identifier 26091- 6 Result Time 2018-10-04 04:33:00Unknown Test Item Value Reference Range Comments Unknown (test code = 789-8) 3.96 10^6 /uL Unknown 4.18-5.48 F Ordering Physician UnknownLaboratory Ngqchqm1424-38-78 04:33:00Identifier 09197- 6 Result Time 2018-10-04 04:33:00Unknown Test Item Value Reference Range Comments Unknown (test code = 777-3) 223 10^3/uL Unknown 150-450 F Ordering Physician UnknownLaboratory Sraozcr9754-32-13 04:33:00Identifier 93726- 6 Result Time 2018-10-04 04:33:00Unknown Test Item Value Reference Range Comments Unknown (test code = 02744-2) 0 Unknown Unknown F Ordering Physician UnknownLaboratory Xsykaas1759-40-54 04:33:00Identifier 87355- 6 Result Time 2018-10-04 04:33:00Unknown Test Item Value Reference Range Comments Unknown (test code = 771-6) 0 10^3/ul Unknown Unknown F Ordering Physician UnknownLaboratory Omznceg5155-25-74 04:33:00Identifier 08869- 6 Result Time 2018-10-04 04:33:00Unknown Test Item Value Reference Range Comments Unknown (test code = 770-8) 62.0 % Unknown Unknown F Ordering Physician UnknownLaboratory Yesarpk9718-86-29 04:33:00Identifier 97147- 6 Result Time 2018-10-04 04:33:00Unknown Test Item Value Reference Range Comments Unknown (test code = 5905-5) 14.1 % Unknown Unknown F Ordering Physician UnknownLaboratory Mlyvmir6962-26-58 04:33:00Identifier 36111- 6 Result Time 2018-10-04 04:33:00Unknown Test Item Value Reference Range Comments Unknown (test code = 12340-8) 8.2 fL Unknown 7.4-10.4 F Ordering Physician UnknownLaboratory Auybuxk6529-88-10 04:33:00Identifier 11713- 6 Result Time 2018-10-04 04:33:00Unknown Test Item Value Reference Range Comments Unknown (test code = 787-2) 92 fL Unknown 80-94 F Ordering Physician UnknownLaboratory Arfxwhy0508-26-03 04:33:00Identifier 18230- 6 Result Time 2018-10-04 04:33:00Unknown Test Item Value Reference Range Comments Unknown (test code = 786-4) 34 g/dL Unknown 31-36 F Ordering Physician UnknownLaboratory Hhdypok3404-97-91 04:33:00Identifier 72824- 6 Result Time 2018-10-04 04:33:00Unknown Test Item Value Reference Range Comments Unknown (test code = 785-6) 31 pg Unknown - F Ordering Physician UnknownLaboratory Lybkymk8252-03-86 04:33:00Identifier 38791- 6 Result Time 2018-10-04 04:33:00Unknown Test Item Value Reference Range Comments Unknown (test code = 736-9) 21.1 % Unknown Unknown F Ordering Physician UnknownLaboratory Athiyek7930-33-91 04:33:00Identifier 32139- 6 Result Time 2018-10-04 04:33:00Unknown Test Item Value Reference Range Comments Unknown (test code = 718-7) 12.2 g/dL Unknown 14.0-18.0 F Ordering Physician UnknownLaboratory Etaegyt9962-46-34 04:33:00Identifier 22907- 6 Result Time 2018-10-04 04:33:00Unknown Test Item Value Reference Range Comments Unknown (test code = 4544-3) 36 % Unknown 36-46 F Ordering Physician UnknownLaboratory Gprcxzi6817-65-50 04:33:00Identifier 85154- 6 Result Time 2018-10-04 04:33:00Unknown Test Item Value Reference Range Comments Unknown (test code = 713-8) 2.4 % Unknown Unknown F Ordering Physician UnknownLaboratory Noiqljs7658-95-28 04:33:00Identifier 44545- 6 Result Time 2018-10-04 04:33:00Unknown Test Item Value Reference Range Comments Unknown (test code = 706-2) 0.4 % Unknown Unknown F Ordering Physician UnknownLaboratory Zqmyesu6785-25-43 04:33:00Identifier 72521- 6 Result Time 2018-10-04 04:33:00Unknown Test Item Value Reference Range Comments Unknown (test code = 751-8) 4.0 10^3/ul Unknown 1.5-7.7 F Ordering Physician UnknownLaboratory Kmdcxgp8455-54-02 04:33:00Identifier 85232- 6 Result Time 2018-10-04 04:33:00Unknown Test Item Value Reference Range Comments Unknown (test code = 742-7) 0.9 10^3/ul Unknown 0-0.8 F Ordering Physician UnknownLaboratory Pbofyjk2759-80-79 04:33:00Identifier 91889- 6 Result Time 2018-10-04 04:33:00Unknown Test Item Value Reference Range Comments Unknown (test code = 731-0) 1.4 10^3/ul Unknown 1.0-4.8 F Ordering Physician UnknownLaboratory Bdhqevh3592-22-10 04:33:00Identifier 54675- 6 Result Time 2018-10-04 04:33:00Unknown Test Item Value Reference Range Comments Unknown (test code = 711-2) 0.2 10^3/ul Unknown 0-0.6 F Ordering Physician UnknownLaboratory Vprlnrh5180-36-58 04:33:00Identifier 56198- 6 Result Time 2018-10-04 04:33:00Unknown Test Item Value Reference Range Comments Unknown (test code = 704-7) 0 10^3/ul Unknown 0-0.2 F Ordering Physician UnknownLaboratory Ibqtvdx1310-69-73 21:14:00Identifier 52128- 6 Result Time 2018-10-03 21:14:00Unknown Test Item Value Reference Range Comments Unknown (test code = 3095-7) 727 mg/dL Unknown Unknown F Ordering Physician UnknownLaboratory Pgpkkks1086-72-95 21:14:00Identifier 19671- 6 Result Time 2018-10-03 21:14:00Unknown Test Item Value Reference Range Comments Unknown (test code = 2955-3) 54 mmol/L Unknown Unknown F Ordering Physician UnknownLaboratory Byrlwdg6955-00-41 21:14:00Identifier 79351- 6 Result Time 2018-10-03 21:14:00Unknown Test Item Value Reference Range Comments Unknown (test code = 2161-8) 88.57 mg/dL Unknown Unknown F Ordering Physician UnknownLaboratory Cumuglb5241-74-74 19:37:00Identifier 95763- 6 Result Time 2018-10-03 19:37:00Unknown Test Item Value Reference Range Comments Unknown (test code = 31199-7) 0.03 ng/mL Unknown Unknown F Ordering Physician UnknownLaboratory Rituiel6725-95-26 06:49:00Identifier 43316- 6 Result Time 2018-10-03 06:49:00Unknown Test Item Value Reference Range Comments Unknown (test code = NullTestCode) 5.0 Unknown 5-9 F Ordering Physician UnknownLaboratory Fhwjnde8615-30-65 06:49:00Identifier 59792- 6 Result Time 2018-10-03 06:49:00Unknown Test Item Value Reference Range Comments Unknown (test code = 06238-6) 1.011 Unknown 1.010-1.030 F Ordering Physician UnknownLaboratory Yhfzzsi8037-39-48 03:30:00Identifier 45684- 6 Result Time 2018-10-03 03:30:00Unknown Test Item Value Reference Range Comments Unknown (test code = 3016-3) 2.96 mcIU/mL Unknown 0.34-5.60 F Ordering Physician UnknownLaboratory Opvwpxp8418-08-46 03:30:00Identifier 74544- 6 Result Time 2018-10-03 03:30:00Unknown Test Item Value Reference Range Comments Unknown (test code = 2524-7) 1.2 mmol/L Unknown 0.5-2.0 F Ordering Physician Unknown
--- OUTSIDE RECORDS SUMMARY | 2019-06-08 15:20 | XMS REPORT ---
:1940 Author Organization [facility] Care Team Providers Name Role Phone Unavailable [...] metoprolol No Unknown Unknown Unknown succinate succinate 10-08 ER 25 mg ER 25 mg tablet,exte [...] Result Comments Laboratory Studies 2018-10-08 07:33:00 Identifier [id number] Result Time Unknown 2018-10-08 07:33:00 Test Item Value Reference Range Comments Unknown (test code = 2339-0) 131 mg/dL Unknown 70-100 F Ordering Physician UnknownLaboratory Abvxmbw9287-19-86 07:41:00Identifier 15648- 6 Result Time 2018-10-07 07:41:00Unknown Test Item Value Reference Range Comments Unknown (test code = 2951-2) 134 mmol/L Unknown 135-145 F Ordering Physician UnknownLaboratory Xlooyih4267-76-99 07:41:00Identifier 66613- 6 Result Time 2018-10-07 07:41:00Unknown Test Item Value Reference Range Comments Unknown (test code = 2823-3) 4.1 mmol/L Unknown 3.5-5.0 F Ordering Physician UnknownLaboratory Xvgblnp2833-01-17 07:41:00Identifier 58152- 6 Result Time 2018-10-07 07:41:00Unknown Test Item Value Reference Range Comments Unknown (test code = 2345-7) 101 mg/dL Unknown 70-100 F Ordering Physician UnknownLaboratory Jhqcfuc4655-20-70 07:41:00Identifier 82474- 6 Result Time 2018-10-07 07:41:00Unknown Test Item Value Reference Range Comments Unknown (test code = 35047-3) 57.7 Unknown Unknown F Ordering Physician UnknownLaboratory Ndecceo4500-48-68 07:41:00Identifier 98273- 6 Result Time 2018-10-07 07:41:00Unknown Test Item Value Reference Range Comments Unknown (test code = NullTestCode) 69.8 Unknown Unknown F Ordering Physician UnknownLaboratory Mjsgbxi6391-91-18 07:41:00Identifier 13887- 6 Result Time 2018-10-07 07:41:00Unknown Test Item Value Reference Range Comments Unknown (test code = 2160-0) 1.21 mg/dL Unknown 0.67-1.17 F Ordering Physician UnknownLaboratory Rhclvfe8099-50-39 07:41:00Identifier 15783- 6 Result Time 2018-10-07 07:41:00Unknown Test Item Value Reference Range Comments Unknown (test code = 2075-0) 101 mmol/L Unknown 101-111 F Ordering Physician UnknownLaboratory Qkerljz9796-06-37 07:41:00Identifier 27906- 6 Result Time 2018-10-07 07:41:00Unknown Test Item Value Reference Range Comments Unknown (test code = 2028-9) 25 mmol/L Unknown 22-32 F Ordering Physician UnknownLaboratory Yrnzxsm8958-45-25 07:41:00Identifier 85842- 6 Result Time 2018-10-07 07:41:00Unknown Test Item Value Reference Range Comments Unknown (test code = 18703-3) 9.1 mg/dL Unknown 8.6-10.3 F Ordering Physician UnknownLaboratory Vblczmn2748-45-39 07:41:00Identifier 64239- 6 Result Time 2018-10-07 07:41:00Unknown Test Item Value Reference Range Comments Unknown (test code = 3094-0) 14 mg/dL Unknown 6-24 F Ordering Physician UnknownLaboratory Jafsksj5820-82-06 07:41:00Identifier 64020- 6 Result Time 2018-10-07 07:41:00Unknown Test Item Value Reference Range Comments Unknown (test code = 3097-3) 11.6 Unknown 8-20 F Ordering Physician UnknownLaboratory Dgelsqj1020-18-24 07:41:00Identifier 67390- 6 Result Time 2018-10-07 07:41:00Unknown Test Item Value Reference Range Comments Unknown (test code = 53173-2) 8 mmol/L Unknown 2-11 F Ordering Physician UnknownLaboratory Rcwkpcv1226-51-65 22:12:00Identifier 73363- 6 Result Time 2018-10-05 22:12:00Unknown Test Item Value Reference Range Comments Unknown (test code = 39155-7) 355 mg/dL Unknown 70-100 F Ordering Physician UnknownLaboratory Qcritkx7295-10-62 04:45:00Identifier 46063- 6 Result Time 2018-10-05 04:45:00Unknown Test Item Value Reference Range Comments Unknown (test code = 1988-5) 23.24 mg/L Unknown 0-8.00 F Ordering Physician UnknownLaboratory Pohmafq9826-62-38 21:41:00Identifier 70558- 6 Result Time 2018-10-04 21:41:00Unknown Test Item Value Reference Range Comments Unknown (test code = 2143-6) 6.51 mcg/dL Unknown Unknown F Ordering Physician UnknownLaboratory Glvfcnx9309-53-95 04:33:00Identifier 83282- 6 Result Time 2018-10-04 04:33:00Unknown Test Item Value Reference Range Comments Unknown (test code = 43902-9) 48 pg/mL Unknown Unknown F Ordering Physician UnknownLaboratory Pmlkrcv4410-77-56 04:33:00Identifier 72038- 6 Result Time 2018-10-04 04:33:00Unknown Test Item Value Reference Range Comments Unknown (test code = 2885-2) 6.7 g/dL Unknown 6.4-8.9 F Ordering Physician UnknownLaboratory Eatqivt0327-59-75 04:33:00Identifier 75353- 6 Result Time 2018-10-04 04:33:00Unknown Test Item Value Reference Range Comments Unknown (test code = 1975-2) 0.30 mg/dL Unknown 0.2-1.0 F Ordering Physician UnknownLaboratory Xehpnbi0673-35-99 04:33:00Identifier 24239- 6 Result Time 2018-10-04 04:33:00Unknown Test Item Value Reference Range Comments Unknown (test code = 2777-1) 3.4 mg/dL Unknown 2.5-5.0 F Ordering Physician UnknownLaboratory Nrboyxw1503-30-70 04:33:00Identifier 50754- 6 Result Time 2018-10-04 04:33:00Unknown Test Item Value Reference Range Comments Unknown (test code = 75108-3) 2.0 mg/dL Unknown 1.9-2.7 F Ordering Physician UnknownLaboratory Yxlhzfy4394-62-69 04:33:00Identifier 98304- 6 Result Time 2018-10-04 04:33:00Unknown Test Item Value Reference Range Comments Unknown (test code = NullTestCode) 3.2 g/dL Unknown 2-4 F Ordering Physician UnknownLaboratory Lwhzoeg5828-09-38 04:33:00Identifier 80315- 6 Result Time 2018-10-04 04:33:00Unknown Test Item Value Reference Range Comments Unknown (test code = 1920-8) 15 U/L Unknown 13-39 F Ordering Physician UnknownLaboratory Rggwnnn3685-81-75 04:33:00Identifier 19631- 6 Result Time 2018-10-04 04:33:00Unknown Test Item Value Reference Range Comments Unknown (test code = 6768-6) 72 U/L Unknown 34-104 F Ordering Physician UnknownLaboratory Trtpbzm0950-03-65 04:33:00Identifier 20780- 6 Result Time 2018-10-04 04:33:00Unknown Test Item Value Reference Range Comments Unknown (test code = 1759-0) 1.1 Unknown 1-3 F Ordering Physician UnknownLaboratory Kvnlgak3955-25-76 04:33:00Identifier 33087- 6 Result Time 2018-10-04 04:33:00Unknown Test Item Value Reference Range Comments Unknown (test code = 24537-9) 3.5 g/dL Unknown 3.2-5.2 F Ordering Physician UnknownLaboratory Dbdleqw5706-10-01 04:33:00Identifier 60995- 6 Result Time 2018-10-04 04:33:00Unknown Test Item Value Reference Range Comments Unknown (test code = 1742-6) 12 U/L Unknown 7-52 F Ordering Physician UnknownLaboratory Cjjmmty8970-53-00 04:33:00Identifier 70725- 6 Result Time 2018-10-04 04:33:00Unknown Test Item Value Reference Range Comments Unknown (test code = 44422-2) 6.5 10^3/uL Unknown 3.5-10.8 F Ordering Physician UnknownLaboratory Dztagum7122-75-18 04:33:00Identifier 65843- 6 Result Time 2018-10-04 04:33:00Unknown Test Item Value Reference Range Comments Unknown (test code = 788-0) 14 % Unknown 10.5-15 F Ordering Physician UnknownLaboratory Upeytpw6791-26-26 04:33:00Identifier 54900- 6 Result Time 2018-10-04 04:33:00Unknown Test Item Value Reference Range Comments Unknown (test code = 789-8) 3.96 10^6 /uL Unknown 4.18-5.48 F Ordering Physician UnknownLaboratory Jxyuxli4109-62-14 04:33:00Identifier 20399- 6 Result Time 2018-10-04 04:33:00Unknown Test Item Value Reference Range Comments Unknown (test code = 777-3) 223 10^3/uL Unknown 150-450 F Ordering Physician UnknownLaboratory Vgzkyxv2966-84-72 04:33:00Identifier 91754- 6 Result Time 2018-10-04 04:33:00Unknown Test Item Value Reference Range Comments Unknown (test code = 42607-6) 0 Unknown Unknown F Ordering Physician UnknownLaboratory Hcctbwq8842-76-03 04:33:00Identifier 43460- 6 Result Time 2018-10-04 04:33:00Unknown Test Item Value Reference Range Comments Unknown (test code = 771-6) 0 10^3/ul Unknown Unknown F Ordering Physician UnknownLaboratory Tvvoclr2049-58-47 04:33:00Identifier 78186- 6 Result Time 2018-10-04 04:33:00Unknown Test Item Value Reference Range Comments Unknown (test code = 770-8) 62.0 % Unknown Unknown F Ordering Physician UnknownLaboratory Tlzdyml6292-87-88 04:33:00Identifier 18353- 6 Result Time 2018-10-04 04:33:00Unknown Test Item Value Reference Range Comments Unknown (test code = 5905-5) 14.1 % Unknown Unknown F Ordering Physician UnknownLaboratory Nzpbejs4606-44-73 04:33:00Identifier 47718- 6 Result Time 2018-10-04 04:33:00Unknown Test Item Value Reference Range Comments Unknown (test code = 82880-1) 8.2 fL Unknown 7.4-10.4 F Ordering Physician UnknownLaboratory Qexduie3198-57-65 04:33:00Identifier 23455- 6 Result Time 2018-10-04 04:33:00Unknown Test Item Value Reference Range Comments Unknown (test code = 787-2) 92 fL Unknown 80-94 F Ordering Physician UnknownLaboratory Rtroskw6324-33-62 04:33:00Identifier 58217- 6 Result Time 2018-10-04 04:33:00Unknown Test Item Value Reference Range Comments Unknown (test code = 786-4) 34 g/dL Unknown 31-36 F Ordering Physician UnknownLaboratory Ivamlap1203-33-10 04:33:00Identifier 61677- 6 Result Time 2018-10-04 04:33:00Unknown Test Item Value Reference Range Comments Unknown (test code = 785-6) 31 pg Unknown - F Ordering Physician UnknownLaboratory Guztmsa0715-06-94 04:33:00Identifier 83637- 6 Result Time 2018-10-04 04:33:00Unknown Test Item Value Reference Range Comments Unknown (test code = 736-9) 21.1 % Unknown Unknown F Ordering Physician UnknownLaboratory Faamgio5205-48-28 04:33:00Identifier 57277- 6 Result Time 2018-10-04 04:33:00Unknown Test Item Value Reference Range Comments Unknown (test code = 718-7) 12.2 g/dL Unknown 14.0-18.0 F Ordering Physician UnknownLaboratory Knkywuo0778-63-04 04:33:00Identifier 84866- 6 Result Time 2018-10-04 04:33:00Unknown Test Item Value Reference Range Comments Unknown (test code = 4544-3) 36 % Unknown 36-46 F Ordering Physician UnknownLaboratory Yixwmug1581-50-47 04:33:00Identifier 53637- 6 Result Time 2018-10-04 04:33:00Unknown Test Item Value Reference Range Comments Unknown (test code = 713-8) 2.4 % Unknown Unknown F Ordering Physician UnknownLaboratory Ifnddcz4658-94-16 04:33:00Identifier 43246- 6 Result Time 2018-10-04 04:33:00Unknown Test Item Value Reference Range Comments Unknown (test code = 706-2) 0.4 % Unknown Unknown F Ordering Physician UnknownLaboratory Fxxttjy6752-20-06 04:33:00Identifier 62408- 6 Result Time 2018-10-04 04:33:00Unknown Test Item Value Reference Range Comments Unknown (test code = 751-8) 4.0 10^3/ul Unknown 1.5-7.7 F Ordering Physician UnknownLaboratory Bzoepvy9212-32-49 04:33:00Identifier 20900- 6 Result Time 2018-10-04 04:33:00Unknown Test Item Value Reference Range Comments Unknown (test code = 742-7) 0.9 10^3/ul Unknown 0-0.8 F Ordering Physician UnknownLaboratory Nyapmyu8192-93-72 04:33:00Identifier 39741- 6 Result Time 2018-10-04 04:33:00Unknown Test Item Value Reference Range Comments Unknown (test code = 731-0) 1.4 10^3/ul Unknown 1.0-4.8 F Ordering Physician UnknownLaboratory Nfyuckp3174-76-18 04:33:00Identifier 36387- 6 Result Time 2018-10-04 04:33:00Unknown Test Item Value Reference Range Comments Unknown (test code = 711-2) 0.2 10^3/ul Unknown 0-0.6 F Ordering Physician UnknownLaboratory Iecetig1978-26-62 04:33:00Identifier 87796- 6 Result Time 2018-10-04 04:33:00Unknown Test Item Value Reference Range Comments Unknown (test code = 704-7) 0 10^3/ul Unknown 0-0.2 F Ordering Physician UnknownLaboratory Mdoxdph5794-75-89 21:14:00Identifier 69240- 6 Result Time 2018-10-03 21:14:00Unknown Test Item Value Reference Range Comments Unknown (test code = 3095-7) 727 mg/dL Unknown Unknown F Ordering Physician UnknownLaboratory Qojfnct7742-56-39 21:14:00Identifier 38221- 6 Result Time 2018-10-03 21:14:00Unknown Test Item Value Reference Range Comments Unknown (test code = 2955-3) 54 mmol/L Unknown Unknown F Ordering Physician UnknownLaboratory Yjrqwxb1209-70-10 21:14:00Identifier 43374- 6 Result Time 2018-10-03 21:14:00Unknown Test Item Value Reference Range Comments Unknown (test code = 2161-8) 88.57 mg/dL Unknown Unknown F Ordering Physician UnknownLaboratory Rpuyrnm8987-83-52 19:37:00Identifier 50406- 6 Result Time 2018-10-03 19:37:00Unknown Test Item Value Reference Range Comments Unknown (test code = 82149-8) 0.03 ng/mL Unknown Unknown F Ordering Physician UnknownLaboratory Zudsfsr1226-05-29 06:49:00Identifier 04705- 6 Result Time 2018-10-03 06:49:00Unknown Test Item Value Reference Range Comments Unknown (test code = NullTestCode) 5.0 Unknown 5-9 F Ordering Physician UnknownLaboratory Bxkgqgs0505-81-45 06:49:00Identifier 81384- 6 Result Time 2018-10-03 06:49:00Unknown Test Item Value Reference Range Comments Unknown (test code = 12069-5) 1.011 Unknown 1.010-1.030 F Ordering Physician UnknownLaboratory Ffrqicg2241-06-35 03:30:00Identifier 13625- 6 Result Time 2018-10-03 03:30:00Unknown Test Item Value Reference Range Comments Unknown (test code = 3016-3) 2.96 mcIU/mL Unknown 0.34-5.60 F Ordering Physician UnknownLaboratory Iugekjg4917-73-50 03:30:00Identifier [id number]- 6 Result Time 2018-10-03 03:30:00Unknown Test Item Value Reference Range Comments Unknown (test code = 2524-7) 1.2 mmol/L Unknown 0.5-2.0 F Ordering Physician Unknown
--- OUTSIDE RECORDS SUMMARY | 2019-06-08 15:20 | XMS REPORT ---
:1940 Author Organization [facility] Care Team Providers Name Role Phone Unavailable Unavailable Unavailable Problems Condition Condition Condition Status Onset Resolution Last Treating Comments Name Details Category Date Date Treatment Clinician Date Pain frequent Pain Mgmt Resolve 2018-072019-05-24 Марина pain d 0-08 14:15:00 [place] 10:15: [id number] 00 Respiratory dyspnea Respirator Active 2018-07 Марина present y 0-08 [place] 10:15: [id number] 00 Respiratory CPAP Respirator Active 2018-07 Марина treatments y 0-08 [place] in home 10:15: [id number] 00 Endo/Sundar insulin Endo/Sundar Active 2018-07 Марина admn 0-08 [place] dependence 10:15: [id number] 00 Endo/Sundar knowledge/s Endo/Sundar Active 2018-07 Марина kill 0-08 [place] deficit: pt 10:15: [id number] 00 Endo/Sundar diabetic Endo/Sundar Active 2018-07 Марина foot care 0-08 [place] 10:15: [id number] 00 Endo/Sundar anti-coagul Endo/Sundar Active 2018-07 Марина ation 0-08 [place] therapy 10:15: [id number] 00 Sensory impaired Sensory Active 2018-07 Марина hearing 0-08 [place] 10:15: [id number] 00 Integument skin Integument Active 2018-07 Марина integrity 0-08 [place] risk 10:15: [id number] 00 Nutrition nutritional Nutrition Active 2018-07 Марина restriction 0-08 [place] s 10:15: [id number] 00 Elimination urinary Eliminatio Resolve 2018-072019-05-21 Марина incontinenc n d 0-08 09:25:00 Anna Marie e 10:15: [id number] 00 Neuro confusion Neuro/Emot Active 2018-07 Марина present ion 0-08 [place] 10:15: [id number] 00 Neuro impaired Neuro/Emot Active 2018- Марина decision-ma ion 0-08 [place] sarah 10:15: [id number] 00 Neuro memory Neuro/Emot Active 2018- Марина deficit ion 0-08 [place] needing 10:15: [id number] supervision 00 Activity ADL Activity Active 2018- Марина assistance 0-08 [place] required 10:15: [id number] 00 Activity self-care Activity Active 2018-07 Марина deficit 0-08 [place] 10:15: [id number] 00 Safety sanitation Safety Active 2018- Марина hazards 0-08 [place] present 10:15: [id number] 00 Safety cannot be Safety Active 2018-07 Марина left alone 0-08 [place] 10:15: [id number] 00 Safety knowledge/s Safety Active 2018-07 Марина kill 0-08 [place] deficit: pt 10:15: [id number] 00 Safety knowledge/s Safety Active 2018-07 Марина kill 0-08 [place] deficit: cg 10:15: [id number] 00 Safety fall risk Safety Active 2018- Марина factor 0-08 [place] present 10:15: [id number] 00 Safety risk for Safety Active 2018- Марина hospitaliza 0-08 [place] tion 10:15: [id number] 00 Medication oral med Meds Resolve 2018-072019-05-21 Марина assistance d 0-08 09:25:00 Anna Marie required 10:15: [id number] 00 Medication injectable Meds Resolve 2018-072019-05-21 Марина med d 0-08 09:25:00 [place] assistance 10:15: [id number] required 00 Medication knowledge/s Meds Active 2018-07 Марина kill 0-08 [place] deficit: pt 10:15: [id number] 00 Medication potential Meds Active 2018- Марина clinically 0-08 Anna Marie significant 10:15: [id number] medication 00 issue Musculoskel transfer Musculoske Active 2018- Марина etal assistance letal 0-08 [place] required 10:15: [id number] 00 Musculoskel requires Musculoske Active 2018- Марина etal human letal 0-08 [place] assist to 10:15: [id number] leave home 00 Elimination constipatio Eliminatio Resolve 2018-072019-05-21 Esther n n d 0-11 09:25:00 Carrier RN 20:00: 00 OT: Self self-care OT: Active 2018-07 [place] Care deficit Self-Care 0-22 [place] 13:30: [id number] 00 Integument knowledge/s Integument Active 2018-07 Esther [...] Active 2018-07 Doreen blancas 08-01 Alej[place] 10:46: [id number] 00 Allergies, Adverse Reactions, Alerts Allergy Allergy [...] Observation Time Observation Value Comments SYSTOLIC mm[Hg] 2019-06-02 18:09:04 124 mm[Hg] mm[Hg] Method: Sit SYSTOLIC mm[Hg] 2019-04-13 18:08:14 120 mm[Hg] mm[Hg] Method: Stand DIASTOLIC mm[Hg] 2019-06-02 18:09:04 66 mm[Hg] mm[Hg] Method: Sit DIASTOLIC mm[Hg] 2019-04-13 18:08:14 78 mm[Hg] mm[Hg] Method: Stand PULSE 2019-06-02 18:09:04 78 /min /min RESP RATE 2019-06-01 18:09:03 16 /min /min TEMP 2019-06-02 18:09:04 97.8 [degF] Procedures This patient has no known procedures. Results This patient has no known results.
--- OUTSIDE RECORDS SUMMARY | 2019-06-08 15:20 | XMS REPORT ---
:1940 Author Organization [facility] Care Team Providers Name Role Phone Unavailable [...] Result Comments Laboratory Studies 2018-10-08 07:33:00 Identifier [id number] Result Time Unknown 2018-10-08 07:33:00 Test Item Value Reference Range Comments Unknown (test code = 2339-0) 131 mg/dL Unknown 70-100 F Ordering Physician UnknownLaboratory Dlffltr6153-03-45 07:41:00Identifier 93837- 6 Result Time 2018-10-07 07:41:00Unknown Test Item Value Reference Range Comments Unknown (test code = 2951-2) 134 mmol/L Unknown 135-145 F Ordering Physician UnknownLaboratory Decwucs1986-37-82 07:41:00Identifier 68591- 6 Result Time 2018-10-07 07:41:00Unknown Test Item Value Reference Range Comments Unknown (test code = 2823-3) 4.1 mmol/L Unknown 3.5-5.0 F Ordering Physician UnknownLaboratory Ratazso8745-99-45 07:41:00Identifier 88438- 6 Result Time 2018-10-07 07:41:00Unknown Test Item Value Reference Range Comments Unknown (test code = 2345-7) 101 mg/dL Unknown 70-100 F Ordering Physician UnknownLaboratory Gstrpnd1266-94-54 07:41:00Identifier 71452- 6 Result Time 2018-10-07 07:41:00Unknown Test Item Value Reference Range Comments Unknown (test code = 69164-2) 57.7 Unknown Unknown F Ordering Physician UnknownLaboratory Hlvpxlr9089-24-51 07:41:00Identifier 24706- 6 Result Time 2018-10-07 07:41:00Unknown Test Item Value Reference Range Comments Unknown (test code = NullTestCode) 69.8 Unknown Unknown F Ordering Physician UnknownLaboratory Qoazvmv1555-59-75 07:41:00Identifier 82989- 6 Result Time 2018-10-07 07:41:00Unknown Test Item Value Reference Range Comments Unknown (test code = 2160-0) 1.21 mg/dL Unknown 0.67-1.17 F Ordering Physician UnknownLaboratory Hugkoxu0485-92-25 07:41:00Identifier 16980- 6 Result Time 2018-10-07 07:41:00Unknown Test Item Value Reference Range Comments Unknown (test code = 2075-0) 101 mmol/L Unknown 101-111 F Ordering Physician UnknownLaboratory Mjgeqqi4239-69-37 07:41:00Identifier 36731- 6 Result Time 2018-10-07 07:41:00Unknown Test Item Value Reference Range Comments Unknown (test code = 2028-9) 25 mmol/L Unknown 22-32 F Ordering Physician UnknownLaboratory Pkpxxfx4173-92-95 07:41:00Identifier 50313- 6 Result Time 2018-10-07 07:41:00Unknown Test Item Value Reference Range Comments Unknown (test code = 50338-3) 9.1 mg/dL Unknown 8.6-10.3 F Ordering Physician UnknownLaboratory Nbtmrob3838-17-22 07:41:00Identifier 80660- 6 Result Time 2018-10-07 07:41:00Unknown Test Item Value Reference Range Comments Unknown (test code = 3094-0) 14 mg/dL Unknown 6-24 F Ordering Physician UnknownLaboratory Vmldrhl6400-84-01 07:41:00Identifier 61591- 6 Result Time 2018-10-07 07:41:00Unknown Test Item Value Reference Range Comments Unknown (test code = 3097-3) 11.6 Unknown 8-20 F Ordering Physician UnknownLaboratory Apcdrga3572-99-66 07:41:00Identifier 35476- 6 Result Time 2018-10-07 07:41:00Unknown Test Item Value Reference Range Comments Unknown (test code = 48686-5) 8 mmol/L Unknown 2-11 F Ordering Physician UnknownLaboratory Buovsrt3848-55-50 22:12:00Identifier 77561- 6 Result Time 2018-10-05 22:12:00Unknown Test Item Value Reference Range Comments Unknown (test code = 47556-2) 355 mg/dL Unknown 70-100 F Ordering Physician UnknownLaboratory Vwbyypm9534-48-65 04:45:00Identifier 46392- 6 Result Time 2018-10-05 04:45:00Unknown Test Item Value Reference Range Comments Unknown (test code = 1988-5) 23.24 mg/L Unknown 0-8.00 F Ordering Physician UnknownLaboratory Dxbjaqb4622-67-64 21:41:00Identifier 79735- 6 Result Time 2018-10-04 21:41:00Unknown Test Item Value Reference Range Comments Unknown (test code = 2143-6) 6.51 mcg/dL Unknown Unknown F Ordering Physician UnknownLaboratory Khmjbzu7051-53-49 04:33:00Identifier 20282- 6 Result Time 2018-10-04 04:33:00Unknown Test Item Value Reference Range Comments Unknown (test code = 74781-8) 48 pg/mL Unknown Unknown F Ordering Physician UnknownLaboratory Tyoqjcq4877-78-76 04:33:00Identifier 47387- 6 Result Time 2018-10-04 04:33:00Unknown Test Item Value Reference Range Comments Unknown (test code = 2885-2) 6.7 g/dL Unknown 6.4-8.9 F Ordering Physician UnknownLaboratory Aqjwihh7963-72-62 04:33:00Identifier 43162- 6 Result Time 2018-10-04 04:33:00Unknown Test Item Value Reference Range Comments Unknown (test code = 1975-2) 0.30 mg/dL Unknown 0.2-1.0 F Ordering Physician UnknownLaboratory Rkmaoqv9673-68-70 04:33:00Identifier 83876- 6 Result Time 2018-10-04 04:33:00Unknown Test Item Value Reference Range Comments Unknown (test code = 2777-1) 3.4 mg/dL Unknown 2.5-5.0 F Ordering Physician UnknownLaboratory Ivxjkkg9486-07-60 04:33:00Identifier 90401- 6 Result Time 2018-10-04 04:33:00Unknown Test Item Value Reference Range Comments Unknown (test code = 13654-6) 2.0 mg/dL Unknown 1.9-2.7 F Ordering Physician UnknownLaboratory Jlvonob5896-88-86 04:33:00Identifier 07027- 6 Result Time 2018-10-04 04:33:00Unknown Test Item Value Reference Range Comments Unknown (test code = NullTestCode) 3.2 g/dL Unknown 2-4 F Ordering Physician UnknownLaboratory Kkbcgtn0941-62-29 04:33:00Identifier 71103- 6 Result Time 2018-10-04 04:33:00Unknown Test Item Value Reference Range Comments Unknown (test code = 1920-8) 15 U/L Unknown 13-39 F Ordering Physician UnknownLaboratory Tcpefir6490-42-63 04:33:00Identifier 63512- 6 Result Time 2018-10-04 04:33:00Unknown Test Item Value Reference Range Comments Unknown (test code = 6768-6) 72 U/L Unknown 34-104 F Ordering Physician UnknownLaboratory Ycpslvs9922-91-26 04:33:00Identifier 12961- 6 Result Time 2018-10-04 04:33:00Unknown Test Item Value Reference Range Comments Unknown (test code = 1759-0) 1.1 Unknown 1-3 F Ordering Physician UnknownLaboratory Leecfcf9749-47-63 04:33:00Identifier 33962- 6 Result Time 2018-10-04 04:33:00Unknown Test Item Value Reference Range Comments Unknown (test code = 21764-4) 3.5 g/dL Unknown 3.2-5.2 F Ordering Physician UnknownLaboratory Ccgykav5953-10-21 04:33:00Identifier 95062- 6 Result Time 2018-10-04 04:33:00Unknown Test Item Value Reference Range Comments Unknown (test code = 1742-6) 12 U/L Unknown 7-52 F Ordering Physician UnknownLaboratory Emvgbec9669-26-16 04:33:00Identifier 73941- 6 Result Time 2018-10-04 04:33:00Unknown Test Item Value Reference Range Comments Unknown (test code = 28440-3) 6.5 10^3/uL Unknown 3.5-10.8 F Ordering Physician UnknownLaboratory Adqgzxx1619-24-33 04:33:00Identifier 50034- 6 Result Time 2018-10-04 04:33:00Unknown Test Item Value Reference Range Comments Unknown (test code = 788-0) 14 % Unknown 10.5-15 F Ordering Physician UnknownLaboratory Yioohrd1280-28-73 04:33:00Identifier 76465- 6 Result Time 2018-10-04 04:33:00Unknown Test Item Value Reference Range Comments Unknown (test code = 789-8) 3.96 10^6 /uL Unknown 4.18-5.48 F Ordering Physician UnknownLaboratory Hotcyoy6759-29-50 04:33:00Identifier 96196- 6 Result Time 2018-10-04 04:33:00Unknown Test Item Value Reference Range Comments Unknown (test code = 777-3) 223 10^3/uL Unknown 150-450 F Ordering Physician UnknownLaboratory Iizivsh3944-70-32 04:33:00Identifier 16041- 6 Result Time 2018-10-04 04:33:00Unknown Test Item Value Reference Range Comments Unknown (test code = 76001-7) 0 Unknown Unknown F Ordering Physician UnknownLaboratory Nbzmdwy5470-85-51 04:33:00Identifier 15878- 6 Result Time 2018-10-04 04:33:00Unknown Test Item Value Reference Range Comments Unknown (test code = 771-6) 0 10^3/ul Unknown Unknown F Ordering Physician UnknownLaboratory Qifbcls4936-91-13 04:33:00Identifier 08141- 6 Result Time 2018-10-04 04:33:00Unknown Test Item Value Reference Range Comments Unknown (test code = 770-8) 62.0 % Unknown Unknown F Ordering Physician UnknownLaboratory Lunuvev7751-37-39 04:33:00Identifier 22808- 6 Result Time 2018-10-04 04:33:00Unknown Test Item Value Reference Range Comments Unknown (test code = 5905-5) 14.1 % Unknown Unknown F Ordering Physician UnknownLaboratory Frxyjzu1932-35-06 04:33:00Identifier 56402- 6 Result Time 2018-10-04 04:33:00Unknown Test Item Value Reference Range Comments Unknown (test code = 35465-7) 8.2 fL Unknown 7.4-10.4 F Ordering Physician UnknownLaboratory Iwteiki0082-86-91 04:33:00Identifier 13084- 6 Result Time 2018-10-04 04:33:00Unknown Test Item Value Reference Range Comments Unknown (test code = 787-2) 92 fL Unknown 80-94 F Ordering Physician UnknownLaboratory Zrxblkk6961-44-34 04:33:00Identifier 91030- 6 Result Time 2018-10-04 04:33:00Unknown Test Item Value Reference Range Comments Unknown (test code = 786-4) 34 g/dL Unknown 31-36 F Ordering Physician UnknownLaboratory Nohasxs9244-63-71 04:33:00Identifier 64508- 6 Result Time 2018-10-04 04:33:00Unknown Test Item Value Reference Range Comments Unknown (test code = 785-6) 31 pg Unknown - F Ordering Physician UnknownLaboratory Zsxerqw1094-12-39 04:33:00Identifier 10617- 6 Result Time 2018-10-04 04:33:00Unknown Test Item Value Reference Range Comments Unknown (test code = 736-9) 21.1 % Unknown Unknown F Ordering Physician UnknownLaboratory Piqcfjk1838-01-68 04:33:00Identifier 82826- 6 Result Time 2018-10-04 04:33:00Unknown Test Item Value Reference Range Comments Unknown (test code = 718-7) 12.2 g/dL Unknown 14.0-18.0 F Ordering Physician UnknownLaboratory Ojlzedo7690-29-06 04:33:00Identifier 36661- 6 Result Time 2018-10-04 04:33:00Unknown Test Item Value Reference Range Comments Unknown (test code = 4544-3) 36 % Unknown 36-46 F Ordering Physician UnknownLaboratory Whgweyz6152-41-04 04:33:00Identifier 49165- 6 Result Time 2018-10-04 04:33:00Unknown Test Item Value Reference Range Comments Unknown (test code = 713-8) 2.4 % Unknown Unknown F Ordering Physician UnknownLaboratory Wfoxprw0595-09-75 04:33:00Identifier 86011- 6 Result Time 2018-10-04 04:33:00Unknown Test Item Value Reference Range Comments Unknown (test code = 706-2) 0.4 % Unknown Unknown F Ordering Physician UnknownLaboratory Pdrywgi0517-94-76 04:33:00Identifier 25395- 6 Result Time 2018-10-04 04:33:00Unknown Test Item Value Reference Range Comments Unknown (test code = 751-8) 4.0 10^3/ul Unknown 1.5-7.7 F Ordering Physician UnknownLaboratory Ntrjckn2576-48-03 04:33:00Identifier 17901- 6 Result Time 2018-10-04 04:33:00Unknown Test Item Value Reference Range Comments Unknown (test code = 742-7) 0.9 10^3/ul Unknown 0-0.8 F Ordering Physician UnknownLaboratory Spnkipn7910-89-22 04:33:00Identifier 13796- 6 Result Time 2018-10-04 04:33:00Unknown Test Item Value Reference Range Comments Unknown (test code = 731-0) 1.4 10^3/ul Unknown 1.0-4.8 F Ordering Physician UnknownLaboratory Bokjxce6323-31-83 04:33:00Identifier 24512- 6 Result Time 2018-10-04 04:33:00Unknown Test Item Value Reference Range Comments Unknown (test code = 711-2) 0.2 10^3/ul Unknown 0-0.6 F Ordering Physician UnknownLaboratory Hkicbuw9344-83-82 04:33:00Identifier 01683- 6 Result Time 2018-10-04 04:33:00Unknown Test Item Value Reference Range Comments Unknown (test code = 704-7) 0 10^3/ul Unknown 0-0.2 F Ordering Physician UnknownLaboratory Bmlgmjl4485-70-72 21:14:00Identifier 29757- 6 Result Time 2018-10-03 21:14:00Unknown Test Item Value Reference Range Comments Unknown (test code = 3095-7) 727 mg/dL Unknown Unknown F Ordering Physician UnknownLaboratory Djbmiag4704-98-18 21:14:00Identifier 44335- 6 Result Time 2018-10-03 21:14:00Unknown Test Item Value Reference Range Comments Unknown (test code = 2955-3) 54 mmol/L Unknown Unknown F Ordering Physician UnknownLaboratory Jnbvcal9218-25-89 21:14:00Identifier 68021- 6 Result Time 2018-10-03 21:14:00Unknown Test Item Value Reference Range Comments Unknown (test code = 2161-8) 88.57 mg/dL Unknown Unknown F Ordering Physician UnknownLaboratory Eesjppj4647-09-42 19:37:00Identifier 36951- 6 Result Time 2018-10-03 19:37:00Unknown Test Item Value Reference Range Comments Unknown (test code = 09526-8) 0.03 ng/mL Unknown Unknown F Ordering Physician UnknownLaboratory Mcbtptl2148-80-26 06:49:00Identifier 20037- 6 Result Time 2018-10-03 06:49:00Unknown Test Item Value Reference Range Comments Unknown (test code = NullTestCode) 5.0 Unknown 5-9 F Ordering Physician UnknownLaboratory Rqbwkqk1428-67-31 06:49:00Identifier 00999- 6 Result Time 2018-10-03 06:49:00Unknown Test Item Value Reference Range Comments Unknown (test code = 11211-1) 1.011 Unknown 1.010-1.030 F Ordering Physician UnknownLaboratory Herpzuv0873-87-18 03:30:00Identifier 81817- 6 Result Time 2018-10-03 03:30:00Unknown Test Item Value Reference Range Comments Unknown (test code = 3016-3) 2.96 mcIU/mL Unknown 0.34-5.60 F Ordering Physician UnknownLaboratory Lnkswzf5175-34-75 03:30:00Identifier 22268- 6 Result Time 2018-10-03 03:30:00Unknown Test Item Value Reference Range Comments Unknown (test code = 2524-7) 1.2 mmol/L Unknown 0.5-2.0 F Ordering Physician Unknown
--- OUTSIDE RECORDS SUMMARY | 2019-06-08 15:20 | XMS REPORT ---
:1940 Author Organization [facility] Care Team Providers Name Role Phone Unavailable [...] Result Comments Laboratory Studies 2018-10-08 07:33:00 Identifier [id number] Result Time Unknown 2018-10-08 07:33:00 Test Item Value Reference Range Comments Unknown (test code = 2339-0) 131 mg/dL Unknown 70-100 F Ordering Physician UnknownLaboratory Xwwostt3942-25-32 07:41:00Identifier [id number]- 6 Result Time 2018-10-07 07:41:00Unknown Test Item Value Reference Range Comments Unknown (test code = 2951-2) 134 mmol/L Unknown 135-145 F Ordering Physician UnknownLaboratory Kdgmyoo2582-21-85 07:41:00Identifier [id number]- 6 Result Time 2018-10-07 07:41:00Unknown Test Item Value Reference Range Comments Unknown (test code = 2823-3) 4.1 mmol/L Unknown 3.5-5.0 F Ordering Physician UnknownLaboratory Kzbraox7228-63-05 07:41:00Identifier [id number]- 6 Result Time 2018-10-07 07:41:00Unknown Test Item Value Reference Range Comments Unknown (test code = 2345-7) 101 mg/dL Unknown 70-100 F Ordering Physician UnknownLaboratory Rmrfuja9136-58-38 07:41:00Identifier [id number]- 6 Result Time 2018-10-07 07:41:00Unknown Test Item Value Reference Range Comments Unknown (test code = 75892-8) 57.7 Unknown Unknown F Ordering Physician UnknownLaboratory Mptltuw4783-17-38 07:41:00Identifier [id number]- 6 Result Time 2018-10-07 07:41:00Unknown Test Item Value Reference Range Comments Unknown (test code = NullTestCode) 69.8 Unknown Unknown F Ordering Physician UnknownLaboratory Xtyijeg1346-53-33 07:41:00Identifier [id number]- 6 Result Time 2018-10-07 07:41:00Unknown Test Item Value Reference Range Comments Unknown (test code = 2160-0) 1.21 mg/dL Unknown 0.67-1.17 F Ordering Physician UnknownLaboratory Gymiaam8749-52-28 07:41:00Identifier [id number]- 6 Result Time 2018-10-07 07:41:00Unknown Test Item Value Reference Range Comments Unknown (test code = 2075-0) 101 mmol/L Unknown 101-111 F Ordering Physician UnknownLaboratory Khfphjp4566-56-58 07:41:00Identifier [id number]- 6 Result Time 2018-10-07 07:41:00Unknown Test Item Value Reference Range Comments Unknown (test code = 2028-9) 25 mmol/L Unknown 22-32 F Ordering Physician UnknownLaboratory Nwrmiuq8502-07-33 07:41:00Identifier [id number]- 6 Result Time 2018-10-07 07:41:00Unknown Test Item Value Reference Range Comments Unknown (test code = 48323-8) 9.1 mg/dL Unknown 8.6-10.3 F Ordering Physician UnknownLaboratory Ubgusgx1773-05-40 07:41:00Identifier 45503- 6 Result Time 2018-10-07 07:41:00Unknown Test Item Value Reference Range Comments Unknown (test code = 3094-0) 14 mg/dL Unknown 6-24 F Ordering Physician UnknownLaboratory Jviabsk6755-02-29 07:41:00Identifier [id number]- 6 Result Time 2018-10-07 07:41:00Unknown Test Item Value Reference Range Comments Unknown (test code = 3097-3) 11.6 Unknown 8-20 F Ordering Physician UnknownLaboratory Ojuymzk3521-22-34 07:41:00Identifier [id number]- 6 Result Time 2018-10-07 07:41:00Unknown Test Item Value Reference Range Comments Unknown (test code = 57304-4) 8 mmol/L Unknown 2-11 F Ordering Physician UnknownLaboratory Bmbpeyz5010-08-52 22:12:00Identifier [id number]- 6 Result Time 2018-10-05 22:12:00Unknown Test Item Value Reference Range Comments Unknown (test code = 71420-9) 355 mg/dL Unknown 70-100 F Ordering Physician UnknownLaboratory Rfahxpv1830-59-43 04:45:00Identifier [id number]- 6 Result Time 2018-10-05 04:45:00Unknown Test Item Value Reference Range Comments Unknown (test code = 1988-5) 23.24 mg/L Unknown 0-8.00 F Ordering Physician UnknownLaboratory Cpbgizm3484-72-37 21:41:00Identifier 79854- 6 Result Time 2018-10-04 21:41:00Unknown Test Item Value Reference Range Comments Unknown (test code = 2143-6) 6.51 mcg/dL Unknown Unknown F Ordering Physician UnknownLaboratory Aybyyyx9171-49-99 04:33:00Identifier [id number]- 6 Result Time 2018-10-04 04:33:00Unknown Test Item Value Reference Range Comments Unknown (test code = 76610-4) 48 pg/mL Unknown Unknown F Ordering Physician UnknownLaboratory Lskfksv9941-91-88 04:33:00Identifier 67035- 6 Result Time 2018-10-04 04:33:00Unknown Test Item Value Reference Range Comments Unknown (test code = 2885-2) 6.7 g/dL Unknown 6.4-8.9 F Ordering Physician UnknownLaboratory Dkhiuvv6492-35-96 04:33:00Identifier 82051- 6 Result Time 2018-10-04 04:33:00Unknown Test Item Value Reference Range Comments Unknown (test code = 1975-2) 0.30 mg/dL Unknown 0.2-1.0 F Ordering Physician UnknownLaboratory Fjvxblp8908-32-47 04:33:00Identifier [id number]- 6 Result Time 2018-10-04 04:33:00Unknown Test Item Value Reference Range Comments Unknown (test code = 2777-1) 3.4 mg/dL Unknown 2.5-5.0 F Ordering Physician UnknownLaboratory Cwatovp3675-72-69 04:33:00Identifier [id number]- 6 Result Time 2018-10-04 04:33:00Unknown Test Item Value Reference Range Comments Unknown (test code = 87381-3) 2.0 mg/dL Unknown 1.9-2.7 F Ordering Physician UnknownLaboratory Zcfeduv1763-63-86 04:33:00Identifier [id number]- 6 Result Time 2018-10-04 04:33:00Unknown Test Item Value Reference Range Comments Unknown (test code = NullTestCode) 3.2 g/dL Unknown 2-4 F Ordering Physician UnknownLaboratory Vmvowxx0735-56-73 04:33:00Identifier [id number]- 6 Result Time 2018-10-04 04:33:00Unknown Test Item Value Reference Range Comments Unknown (test code = 1920-8) 15 U/L Unknown 13-39 F Ordering Physician UnknownLaboratory Plqxpym9151-16-65 04:33:00Identifier 85015- 6 Result Time 2018-10-04 04:33:00Unknown Test Item Value Reference Range Comments Unknown (test code = 6768-6) 72 U/L Unknown 34-104 F Ordering Physician UnknownLaboratory Uwjufdx0812-16-56 04:33:00Identifier 30383- 6 Result Time 2018-10-04 04:33:00Unknown Test Item Value Reference Range Comments Unknown (test code = 1759-0) 1.1 Unknown 1-3 F Ordering Physician UnknownLaboratory Ltylrzs3704-73-82 04:33:00Identifier [id number]- 6 Result Time 2018-10-04 04:33:00Unknown Test Item Value Reference Range Comments Unknown (test code = 59707-3) 3.5 g/dL Unknown 3.2-5.2 F Ordering Physician UnknownLaboratory Jdcxkep1182-39-99 04:33:00Identifier 72183- 6 Result Time 2018-10-04 04:33:00Unknown Test Item Value Reference Range Comments Unknown (test code = 1742-6) 12 U/L Unknown 7-52 F Ordering Physician UnknownLaboratory Swdjeeq4734-09-45 04:33:00Identifier 72231- 6 Result Time 2018-10-04 04:33:00Unknown Test Item Value Reference Range Comments Unknown (test code = 95428-5) 6.5 10^3/uL Unknown 3.5-10.8 F Ordering Physician UnknownLaboratory Mrceced5043-65-97 04:33:00Identifier 13530- 6 Result Time 2018-10-04 04:33:00Unknown Test Item Value Reference Range Comments Unknown (test code = 788-0) 14 % Unknown 10.5-15 F Ordering Physician UnknownLaboratory Qdtbjio5842-72-24 04:33:00Identifier 20912- 6 Result Time 2018-10-04 04:33:00Unknown Test Item Value Reference Range Comments Unknown (test code = 789-8) 3.96 10^6 /uL Unknown 4.18-5.48 F Ordering Physician UnknownLaboratory Hmsimiw3120-46-01 04:33:00Identifier 61741- 6 Result Time 2018-10-04 04:33:00Unknown Test Item Value Reference Range Comments Unknown (test code = 777-3) 223 10^3/uL Unknown 150-450 F Ordering Physician UnknownLaboratory Fgnvtmv4032-77-02 04:33:00Identifier 11326- 6 Result Time 2018-10-04 04:33:00Unknown Test Item Value Reference Range Comments Unknown (test code = 30562-1) 0 Unknown Unknown F Ordering Physician UnknownLaboratory Ullhcxj2070-91-62 04:33:00Identifier [id number]- 6 Result Time 2018-10-04 04:33:00Unknown Test Item Value Reference Range Comments Unknown (test code = 771-6) 0 10^3/ul Unknown Unknown F Ordering Physician UnknownLaboratory Sylzvne7671-96-89 04:33:00Identifier 11748- 6 Result Time 2018-10-04 04:33:00Unknown Test Item Value Reference Range Comments Unknown (test code = 770-8) 62.0 % Unknown Unknown F Ordering Physician UnknownLaboratory Beclszp7245-71-62 04:33:00Identifier 04032- 6 Result Time 2018-10-04 04:33:00Unknown Test Item Value Reference Range Comments Unknown (test code = 5905-5) 14.1 % Unknown Unknown F Ordering Physician UnknownLaboratory Xjdagjp9448-89-06 04:33:00Identifier 83901- 6 Result Time 2018-10-04 04:33:00Unknown Test Item Value Reference Range Comments Unknown (test code = 80139-1) 8.2 fL Unknown 7.4-10.4 F Ordering Physician UnknownLaboratory Jalzqhn0961-29-73 04:33:00Identifier 57078- 6 Result Time 2018-10-04 04:33:00Unknown Test Item Value Reference Range Comments Unknown (test code = 787-2) 92 fL Unknown 80-94 F Ordering Physician UnknownLaboratory Shlljyh2674-91-32 04:33:00Identifier [id number]- 6 Result Time 2018-10-04 04:33:00Unknown Test Item Value Reference Range Comments Unknown (test code = 786-4) 34 g/dL Unknown 31-36 F Ordering Physician UnknownLaboratory Rwvuqxn1775-34-73 04:33:00Identifier [id number]- 6 Result Time 2018-10-04 04:33:00Unknown Test Item Value Reference Range Comments Unknown (test code = 785-6) 31 pg Unknown - F Ordering Physician UnknownLaboratory Ekgufpg6117-18-81 04:33:00Identifier [id number]- 6 Result Time 2018-10-04 04:33:00Unknown Test Item Value Reference Range Comments Unknown (test code = 736-9) 21.1 % Unknown Unknown F Ordering Physician UnknownLaboratory Noxyfpx2469-77-49 04:33:00Identifier 50298- 6 Result Time 2018-10-04 04:33:00Unknown Test Item Value Reference Range Comments Unknown (test code = 718-7) 12.2 g/dL Unknown 14.0-18.0 F Ordering Physician UnknownLaboratory Jysbtzf6135-49-04 04:33:00Identifier 21724- 6 Result Time 2018-10-04 04:33:00Unknown Test Item Value Reference Range Comments Unknown (test code = 4544-3) 36 % Unknown 36-46 F Ordering Physician UnknownLaboratory Bbursux4613-60-47 04:33:00Identifier [id number]- 6 Result Time 2018-10-04 04:33:00Unknown Test Item Value Reference Range Comments Unknown (test code = 713-8) 2.4 % Unknown Unknown F Ordering Physician UnknownLaboratory Zbljdej2319-16-35 04:33:00Identifier [id number]- 6 Result Time 2018-10-04 04:33:00Unknown Test Item Value Reference Range Comments Unknown (test code = 706-2) 0.4 % Unknown Unknown F Ordering Physician UnknownLaboratory Dylcpsf6375-15-88 04:33:00Identifier 86382- 6 Result Time 2018-10-04 04:33:00Unknown Test Item Value Reference Range Comments Unknown (test code = 751-8) 4.0 10^3/ul Unknown 1.5-7.7 F Ordering Physician UnknownLaboratory Chhncab5940-40-52 04:33:00Identifier 18067- 6 Result Time 2018-10-04 04:33:00Unknown Test Item Value Reference Range Comments Unknown (test code = 742-7) 0.9 10^3/ul Unknown 0-0.8 F Ordering Physician UnknownLaboratory Ljdignv3313-31-05 04:33:00Identifier [id number]- 6 Result Time 2018-10-04 04:33:00Unknown Test Item Value Reference Range Comments Unknown (test code = 731-0) 1.4 10^3/ul Unknown 1.0-4.8 F Ordering Physician UnknownLaboratory Bukzbgo6064-89-52 04:33:00Identifier [id number]- 6 Result Time 2018-10-04 04:33:00Unknown Test Item Value Reference Range Comments Unknown (test code = 711-2) 0.2 10^3/ul Unknown 0-0.6 F Ordering Physician UnknownLaboratory Whszcwi2627-21-52 04:33:00Identifier [id number]- 6 Result Time 2018-10-04 04:33:00Unknown Test Item Value Reference Range Comments Unknown (test code = 704-7) 0 10^3/ul Unknown 0-0.2 F Ordering Physician UnknownLaboratory Stthluu0081-07-40 21:14:00Identifier 76781- 6 Result Time 2018-10-03 21:14:00Unknown Test Item Value Reference Range Comments Unknown (test code = 3095-7) 727 mg/dL Unknown Unknown F Ordering Physician UnknownLaboratory Czlexkp4351-51-77 21:14:00Identifier 66357- 6 Result Time 2018-10-03 21:14:00Unknown Test Item Value Reference Range Comments Unknown (test code = 2955-3) 54 mmol/L Unknown Unknown F Ordering Physician UnknownLaboratory Dktysgm8029-89-63 21:14:00Identifier 22848- 6 Result Time 2018-10-03 21:14:00Unknown Test Item Value Reference Range Comments Unknown (test code = 2161-8) 88.57 mg/dL Unknown Unknown F Ordering Physician UnknownLaboratory Nrzkvlu6174-81-74 19:37:00Identifier 48395- 6 Result Time 2018-10-03 19:37:00Unknown Test Item Value Reference Range Comments Unknown (test code = 86196-8) 0.03 ng/mL Unknown Unknown F Ordering Physician UnknownLaboratory Ideoixv5147-75-65 06:49:00Identifier [id number]- 6 Result Time 2018-10-03 06:49:00Unknown Test Item Value Reference Range Comments Unknown (test code = NullTestCode) 5.0 Unknown 5-9 F Ordering Physician UnknownLaboratory Ztuieem4942-36-65 06:49:00Identifier 52211- 6 Result Time 2018-10-03 06:49:00Unknown Test Item Value Reference Range Comments Unknown (test code = 03637-0) 1.011 Unknown 1.010-1.030 F Ordering Physician UnknownLaboratory Ytsisst1394-52-71 03:30:00Identifier 09543- 6 Result Time 2018-10-03 03:30:00Unknown Test Item Value Reference Range Comments Unknown (test code = 3016-3) 2.96 mcIU/mL Unknown 0.34-5.60 F Ordering Physician UnknownLaboratory Gowewin1268-63-92 03:30:00Identifier [id number]- 6 Result Time 2018-10-03 03:30:00Unknown Test Item Value Reference Range Comments Unknown (test code = 2524-7) 1.2 mmol/L Unknown 0.5-2.0 F Ordering Physician Unknown
--- OUTSIDE RECORDS SUMMARY | 2019-06-08 15:20 | XMS REPORT ---
:1940 Author Organization [facility] Care Team Providers Name Role Phone Unavailable Unavailable Unavailable Problems Condition Condition Condition Status Onset Resolution Last Treating Comments Name Details Category Date Date Treatment Clinician Date Pain frequent Pain Mgmt Resolve 2018-072019-05-24 Марина pain d 0-08 14:15:00 Tryon 10:15: [id number] 00 Respiratory dyspnea Respirator Active 2018-07 Марина present y 0-08 [place]on 10:15: [id number] 00 Respiratory CPAP Respirator Active 2018-07 Марина treatments y 0-08 Tryon in home 10:15: [id number] 00 Endo/Sundar insulin Endo/Sundar Active 2018-07 Марина admn 0-08 Tryon dependence 10:15: [id number] 00 Endo/Sundar knowledge/s Endo/Sundar Active 2018-07 Марина kill 0-08 Tryon deficit: pt 10:15: [id number] 00 Endo/Sundar diabetic Endo/Sundar Active 2018-07 Марина foot care 0-08 Tryon 10:15: [id number] 00 Endo/Sundar anti-coagul Endo/Sundar Active 2018-07 Марина ation 0-08 Tryon therapy 10:15: [id number] 00 Sensory impaired Sensory Active 2018-07 Марина hearing 0-08 Tryon 10:15: [id number] 00 Integument skin Integument Active 2018-07 Марина integrity 0-08 Tryon risk 10:15: [id number] 00 Nutrition nutritional Nutrition Active 2018-07 Марина restriction 0-08 Tryon s 10:15: [id number] 00 Elimination urinary Eliminatio Resolve 2018-072019-05-21 Марина incontinenc n d 0-08 09:25:00 Anna Marie e 10:15: [id number] 00 Neuro confusion Neuro/Emot Active 2018-07 Марина present ion 0-08 Tryon 10:15: [id number] 00 Neuro impaired Neuro/Emot Active 2018- Марина decision-ma ion 0-08 Tryon sarah 10:15: [id number] 00 Neuro memory Neuro/Emot Active 2018- Марина deficit ion 0-08 Tryon needing 10:15: [id number] supervision 00 Activity ADL Activity Active 2018- Марина assistance 0-08 Tryon required 10:15: [id number] 00 Activity self-care Activity Active 2018-07 Марина deficit 0-08 Tryon 10:15: [id number] 00 Safety sanitation Safety Active 2018- Марина hazards 0-08 Tryon present 10:15: [id number] 00 Safety cannot be Safety Active 2018-07 Марина left alone 0-08 Tryon 10:15: [id number] 00 Safety knowledge/s Safety Active 2018-07 Марина kill 0-08 Tryon deficit: pt 10:15: [id number] 00 Safety knowledge/s Safety Active 2018-07 Марина kill 0-08 Tryon deficit: cg 10:15: [id number] 00 Safety fall risk Safety Active 2018- Марина factor 0-08 Tryon present 10:15: [id number] 00 Safety risk for Safety Active 2018- Марина hospitaliza 0-08 [place]on tion 10:15: [id number] 00 Medication oral med Meds Resolve 2018-072019-05-21 Марина assistance d 0-08 09:25:00 Anna Marie required 10:15: [id number] 00 Medication injectable Meds Resolve 2018-072019-05-21 Марина med d 0-08 09:25:00 [place]on assistance 10:15: [id number] required 00 Medication knowledge/s Meds Active 2018-07 Марина kill 0-08 Tryon deficit: pt 10:15: [id number] 00 Medication potential Meds Active 2018- Марина clinically 0-08 Anna Marie significant 10:15: [id number] medication 00 issue Musculoskel transfer Musculoske Active 2018- Марина etal assistance letal 0-08 Tryon required 10:15: [id number] 00 Musculoskel requires Musculoske Active 2018- Марина etal human letal 0-08 [place]on assist to 10:15: [id number] leave home 00 Elimination constipatio Eliminatio Resolve 2018-072019-05-21 Esther n n d 0-11 09:25:00 Carrier RN 20:00: 00 OT: Self self-care OT: Active 2018-07 Tiff Care deficit Self-Care 0-22 Black 13:30: [id number] 00 Integument knowledge/s Integument Active 2018-07 Esther [...] Active 2018-07 Doreen blancas 08-01 Alejandro 10:46: [id number] 00 Allergies, Adverse Reactions, Alerts Allergy Allergy [...] Observation Time Observation Value Comments SYSTOLIC mm[Hg] 2019-06-01 18:09:03 122 mm[Hg] mm[Hg] Method: Sit SYSTOLIC mm[Hg] 2019-04-13 18:08:14 120 mm[Hg] mm[Hg] Method: Stand DIASTOLIC mm[Hg] 2019-06-01 18:09:03 78 mm[Hg] mm[Hg] Method: Sit DIASTOLIC mm[Hg] 2019-04-13 18:08:14 78 mm[Hg] mm[Hg] Method: Stand PULSE 2019-06-01 18:09:03 78 /min /min RESP RATE 2019-06-01 18:09:03 16 /min /min TEMP 2019-06-01 18:09:03 98.3 [degF] Procedures This patient has no known procedures. Results This patient has no known results.
--- OUTSIDE RECORDS SUMMARY | 2019-06-08 15:20 | XMS REPORT ---
:1940 Author Organization [facility] Care Team Providers Name Role Phone Unavailable Unavailable Unavailable Problems Condition Condition Condition Status Onset Resolution Last Treating Comments Name Details Category Date Date Treatment Clinician Date Pain frequent Pain Mgmt Resolve 2018-072019-05-24 Марина pain d 0-08 14:15:00 Alicia 10:15: [id number] 00 Respiratory dyspnea Respirator Active 2018-07 Марина present y 0-08 Alicia 10:15: [id number] 00 Respiratory CPAP Respirator Active 2018-07 Марина treatments y 0-08 Alicia in home 10:15: [id number] 00 Endo/Sundar insulin Endo/Sundar Active 2018-07 Марина admn 0-08 Alicia dependence 10:15: [id number] 00 Endo/Sundar knowledge/s Endo/Sundar Active 2018-07 Марина kill 0-08 Alicia deficit: pt 10:15: [id number] 00 Endo/Sundar diabetic Endo/Sundar Active 2018-07 Марина foot care 0-08 Alicia 10:15: [id number] 00 Endo/Sundar anti-coagul Endo/Sundar Active 2018-07 Марина ation 0-08 Alicia therapy 10:15: [id number] 00 Sensory impaired Sensory Active 2018-07 Марина hearing 0-08 Alicia 10:15: [id number] 00 Integument skin Integument Active 2018-07 Марина integrity 0-08 Alicia risk 10:15: [id number] 00 Nutrition nutritional Nutrition Active 2018-07 Марина restriction 0-08 Alicia s 10:15: [id number] 00 Elimination urinary Eliminatio Resolve 2018-072019-05-21 Марина incontinenc n d 0-08 09:25:00 Anna Marie e 10:15: [id number] 00 Neuro confusion Neuro/Emot Active 2018-07 Марина present ion 0-08 Alicia 10:15: [id number] 00 Neuro impaired Neuro/Emot Active 2018- Марина decision-ma ion 0-08 Alicia sarah 10:15: [id number] 00 Neuro memory Neuro/Emot Active 2018- Марина deficit ion 0-08 Alicia needing 10:15: [id number] supervision 00 Activity ADL Activity Active 2018- Марина assistance 0-08 Alicia required 10:15: [id number] 00 Activity self-care Activity Active 2018-07 Марина deficit 0-08 Alicia 10:15: [id number] 00 Safety sanitation Safety Active 2018- Марина hazards 0-08 Alicia present 10:15: [id number] 00 Safety cannot be Safety Active 2018-07 Марина left alone 0-08 Alicia 10:15: [id number] 00 Safety knowledge/s Safety Active 2018-07 Марина kill 0-08 Alicia deficit: pt 10:15: [id number] 00 Safety knowledge/s Safety Active 2018-07 Марина kill 0-08 Alicia deficit: cg 10:15: [id number] 00 Safety fall risk Safety Active 2018- Марина factor 0-08 Alicia present 10:15: [id number] 00 Safety risk for Safety Active 2018- Марина hospitaliza 0-08 Alicia tion 10:15: [id number] 00 Medication oral med Meds Resolve 2018-072019-05-21 Марина assistance d 0-08 09:25:00 Anna Marie required 10:15: [id number] 00 Medication injectable Meds Resolve 2018-072019-05-21 Марина med d 0-08 09:25:00 Alicia assistance 10:15: [id number] required 00 Medication knowledge/s Meds Active 2018-07 Марина kill 0-08 Alicia deficit: pt 10:15: [id number] 00 Medication potential Meds Active 2018- Марина clinically 0-08 Anna Marie significant 10:15: [id number] medication 00 issue Musculoskel transfer Musculoske Active 2018- Марина etal assistance letal 0-08 Alicia required 10:15: [id number] 00 Musculoskel requires Musculoske Active 2018- Марина etal human letal 0-08 Alicia assist to 10:15: [id number] leave home 00 Elimination constipatio Eliminatio Resolve 2018-072019-05-21 Esther n n d 0-11 09:25:00 Carrier RN 20:00: 00 OT: Self self-care OT: Active 2018-07 Tiff Care deficit Self-Care 0-22 Black 13:30: [id number] 00 Integument knowledge/s Integument Active 2018-07 Esther [...] Cardio pacemaker/I Cardiovasc Active 2018-07 Fatuma DUNCAN ular 1-15 Vallely 09:25: 00 Endo/Sundar glucose Endo/Sundar Active 2018-07 Fatuma testing 15 Vallely dependence 09:25: 00 Allergies, Adverse Reactions, Alerts Allergy Allergy [...] 24 hr hr HumaLOG Mix HumaLOG Mix 2018-07- Yes Law Unknown Unknown 75-25 75-25 0-08 11-05 Roque MEDINA KwTyler KwikPen U-100 U-100 insulin 100 insulin 100 unit/mL unit/mL subcutaneou subcutaneou s pen s pen Victoza Victoza 2018-07 2019- Yes Law Unknown Unknown 2-Brian 0.6 2-Brian [...] Yes Law Unknown Unknown U-500 U-500 1-05 MDRoque (Conc) (Conc) Insulin Insulin Kwikpen 500 Kwikpen 500 unit/mL (3 unit/mL (3 mL) mL) subcutaneou subcutaneou s s Toujeo Max Toujeo Max 2018-07 Yes Law Unknown Unknown U-300 U-300 1-05 MD,Roque SoloStar SoloStar 300 unit/mL 300 unit/mL (3 mL) (3 mL) subcutaneou subcutaneou s insulin s insulin pen pen Vital Signs Vital Name Observation Time Observation Value Comments SYSTOLIC mm[Hg] 2019-05-31 18:09:02 142 mm[Hg] mm[Hg] Method: Sit SYSTOLIC mm[Hg] 2019-04-13 18:08:14 120 mm[Hg] mm[Hg] Method: Stand DIASTOLIC mm[Hg] 2019-05-31 18:09:02 60 mm[Hg] mm[Hg] Method: Sit DIASTOLIC mm[Hg] 2019-04-13 18:08:14 78 mm[Hg] mm[Hg] Method: Stand PULSE 2019-05-31 18:09:02 72 /min /min RESP RATE 2019-05-26 18:08:57 16 /min /min TEMP 2019-05-31 18:09:02 97.8 [degF] Procedures This patient has no known procedures. Results This patient has no known results.
--- OUTSIDE RECORDS SUMMARY | 2019-06-08 15:20 | XMS REPORT ---
:1940 Author Organization [facility] Care Team Providers Name Role Phone Unavailable Unavailable Unavailable Problems Condition Condition Condition Status Onset Resolution Last Treating Comments Name Details Category Date Date Treatment Clinician Date Pain frequent Pain Mgmt Resolve 2018-072019-05-24 Марина pain d 0-08 14:15:00 [place] 10:15: [id number] Respiratory dyspnea Respirator Active 2018-07 Марина present y 0-08 [place] 10:15: [id number] 00 Respiratory CPAP Respirator Active 2018-07 Марина treatments y 0-08 [place] in home 10:15: [id number] 00 Endo/Sundar insulin Endo/Sundar Active 2018-07 Марина admn 0-08 [place] dependence 10:15: [id number] 00 Endo/Sundar knowledge/s Endo/Sundar Active 2018-07 Марина kill 0-08 [place] deficit: pt 10:15: [id number] 00 Endo/Sundar diabetic Endo/Sundar Active 2018-07 Марина foot care 0-08 [place] 10:15: [id number] 00 Endo/Sundar anti-coagul Endo/Sundar Active 2018-07 Марина ation 0-08 [place] therapy 10:15: [id number] 00 Sensory impaired Sensory Active 2018-07 Марина hearing 0-08 [place] 10:15: [id number] 00 Integument skin Integument Active 2018-07 Марина integrity 0-08 [place] risk 10:15: [id number] 00 Nutrition nutritional Nutrition Active 2018-07 Марина restriction 0-08 [place] s 10:15: [id number] 00 Elimination urinary Eliminatio Resolve 2018-072019-05-21 Марина incontinenc n d 0-08 09:25:00 Anna Marie e 10:15: [id number] 00 Neuro confusion Neuro/Emot Active 2018-07 Марина present ion 0-08 [place] 10:15: [id number] 00 Neuro impaired Neuro/Emot Active 2018- Марина decision-ma ion 0-08 [place] sarah 10:15: [id number] 00 Neuro memory Neuro/Emot Active 2018- Марина deficit ion 0-08 [place] needing 10:15: [id number] supervision 00 Activity ADL Activity Active 2018- Марина assistance 0-08 [place] required 10:15: [id number] 00 Activity self-care Activity Active 2018-07 Марина deficit 0-08 [place] 10:15: [id number] 00 Safety sanitation Safety Active 2018- Марина hazards 0-08 [place] present 10:15: [id number] 00 Safety cannot be Safety Active 2018-07 Марина left alone 0-08 [place] 10:15: [id number] 00 Safety knowledge/s Safety Active 2018-07 Марина kill 0-08 [place] deficit: pt 10:15: [id number] 00 Safety knowledge/s Safety Active 2018-07 Марина kill 0-08 [place] deficit: cg 10:15: [id number] 00 Safety fall risk Safety Active 2018- Марина factor 0-08 [place] present 10:15: [id number] 00 Safety risk for Safety Active 2018- Марина hospitaliza 0-08 [place] tion 10:15: [id number] 00 Medication oral med Meds Resolve 2018-072019-05-21 Марина assistance d 0-08 09:25:00 Anna Marie required 10:15: [id number] 00 Medication injectable Meds Resolve 2018-072019-05-21 Марина med d 0-08 09:25:00 [place] assistance 10:15: [id number] required 00 Medication knowledge/s Meds Active 2018-07 Марина kill 0-08 [place] deficit: pt 10:15: [id number] 00 Medication potential Meds Active 2018- Марина clinically 0-08 Anna Marie significant 10:15: [id number] medication 00 issue Musculoskel transfer Musculoske Active 2018- Марина etal assistance letal 0-08 [place] required 10:15: [id number] 00 Musculoskel requires Musculoske Active 2018- Марина etal human letal 0-08 [place] assist to 10:15: [id number] leave home 00 Elimination constipatio Eliminatio Resolve 2018-072019-05-21 Esther n n d 0-11 09:25:00 [place] RN 20:00: 00 OT: Self self-care OT: Active 2018-07 [place] [facility] deficit Self-Care 0-22 [place] 13:30: [id number] 00 Integument knowledge/s Integument Active 2018-07 Esther [...] Yes Law Unknown Unknown U-300 U-300 1-05 MDRoque SoloStar SoloStar 300 unit/mL 300 unit/mL (3 mL) (3 mL) subcutaneou subcutaneou s insulin s insulin pen pen Vital Signs Vital Name Observation Time Observation Value Comments SYSTOLIC mm[Hg] 2019-05-27 18:08:58 122 mm[Hg] mm[Hg] Method: Sit SYSTOLIC mm[Hg] 2019-04-13 18:08:14 120 mm[Hg] mm[Hg] Method: Stand DIASTOLIC mm[Hg] 2019-05-27 18:08:58 74 mm[Hg] mm[Hg] Method: Sit DIASTOLIC mm[Hg] 2019-04-13 18:08:14 78 mm[Hg] mm[Hg] Method: Stand PULSE 2019-05-27 18:08:58 80 /min /min RESP RATE 2019-05-26 18:08:57 16 /min /min TEMP 2019-05-27 18:08:58 97.8 [degF] Procedures This patient has no known procedures. Results This patient has no known results.
--- OUTSIDE RECORDS SUMMARY | 2019-06-08 15:20 | XMS REPORT ---
:1940 Author Organization [facility] Care Team Providers Name Role Phone Unavailable Unavailable Unavailable Problems Condition Condition Condition Status Onset Resolution Last Treating Comments Name Details Category Date Date Treatment Clinician Date Pain frequent Pain Mgmt Resolve 2018-072019-05-24 Марина pain d 0-08 14:15:00 [place] 10:15: [id number] 00 Respiratory dyspnea Respirator Active 2018-07 Марина present y 0-08 [place] 10:15: [id number] 00 Respiratory CPAP Respirator Active 2018-07 Марина treatments y 0-08 [place] in home 10:15: [id number] 00 Endo/Sundar insulin Endo/Sundar Active 2018-07 Марина admn 0-08 [place] dependence 10:15: [id number] 00 Endo/Sundar knowledge/s Endo/Sundar Active 2018-07 Марина kill 0-08 [place] deficit: pt 10:15: [id number] 00 Endo/Sundar diabetic Endo/Sundar Active 2018-07 Марина foot care 0-08 [place] 10:15: [id number] 00 Endo/Sundar anti-coagul Endo/Sundar Active 2018-07 Марина ation 0-08 [place] therapy 10:15: [id number] 00 Sensory impaired Sensory Active 2018-07 Марина hearing 0-08 [place] 10:15: [id number] 00 Integument skin Integument Active 2018-07 Марина integrity 0-08 [place] risk 10:15: [id number] 00 Nutrition nutritional Nutrition Active 2018-07 Марина restriction 0-08 [place] s 10:15: [id number] 00 Elimination urinary Eliminatio Resolve 2018-072019-05-21 Марина incontinenc n d 0-08 09:25:00 Anna Marie e 10:15: [id number] 00 Neuro confusion Neuro/Emot Active 2018-07 Марина present ion 0-08 [place] 10:15: [id number] 00 Neuro impaired Neuro/Emot Active 2018- Марина decision-ma ion 0-08 [place] sarah 10:15: [id number] 00 Neuro memory Neuro/Emot Active 2018- Марина deficit ion 0-08 [place] needing 10:15: [id number] supervision 00 Activity ADL Activity Active 2018- Марина assistance 0-08 [place] required 10:15: [id number] 00 Activity self-care Activity Active 2018-07 Марина deficit 0-08 [place] 10:15: [id number] 00 Safety sanitation Safety Active 2018- Марина hazards 0-08 [place] present 10:15: [id number] 00 Safety cannot be Safety Active 2018-07 Марина left alone 0-08 [place] 10:15: [id number] 00 Safety knowledge/s Safety Active 2018-07 Марина kill 0-08 [place] deficit: pt 10:15: [id number] 00 Safety knowledge/s Safety Active 2018-07 Марина kill 0-08 [place] deficit: cg 10:15: [id number] 00 Safety fall risk Safety Active 2018- Марина factor 0-08 [place] present 10:15: [id number] 00 Safety risk for Safety Active 2018- Марина hospitaliza 0-08 [place] tion 10:15: [id number] 00 Medication oral med Meds Resolve 2018-072019-05-21 Марина assistance d 0-08 09:25:00 Anna Marie required 10:15: [id number] 00 Medication injectable Meds Resolve 2018-072019-05-21 Марина med d 0-08 09:25:00 [place] assistance 10:15: [id number] required 00 Medication knowledge/s Meds Active 2018-07 Марина kill 0-08 [place] deficit: pt 10:15: [id number] 00 Medication potential Meds Active 2018- Марина clinically 0-08 Anna Marie significant 10:15: [id number] medication 00 issue Musculoskel transfer Musculoske Active 2018- Марина etal assistance letal 0-08 [place] required 10:15: [id number] 00 Musculoskel requires Musculoske Active 2018- Марина etal human letal 0-08 [place] assist to 10:15: [id number] leave home 00 Elimination constipatio Eliminatio Resolve 2018-072019-05-21 Esther n n d 0-11 09:25:00 Carrier RN 20:00: 00 OT: Self self-care OT: Active 2018-07 [place] Care deficit Self-Care 0-22 [place] 13:30: [id number] 00 Integument knowledge/s Integument Active 2018-07 Esther [...] Yes Law Unknown Unknown U-300 U-300 1-05 ,Roque SoloStar SoloStar 300 unit/mL 300 unit/mL (3 mL) (3 mL) subcutaneou subcutaneou s insulin s insulin pen pen Vital Signs Vital Name Observation Time Observation Value Comments SYSTOLIC mm[Hg] 2019-05-26 18:08:57 112 mm[Hg] mm[Hg] Method: Sit SYSTOLIC mm[Hg] 2019-04-13 18:08:14 120 mm[Hg] mm[Hg] Method: Stand DIASTOLIC mm[Hg] 2019-05-26 18:08:57 78 mm[Hg] mm[Hg] Method: Sit DIASTOLIC mm[Hg] 2019-04-13 18:08:14 78 mm[Hg] mm[Hg] Method: Stand PULSE 2019-05-26 18:08:57 74 /min /min RESP RATE 2019-05-26 18:08:57 16 /min /min TEMP 2019-05-26 18:08:57 98.1 [degF] Procedures This patient has no known procedures. Results This patient has no known results.
--- OUTSIDE RECORDS SUMMARY | 2019-06-08 15:20 | XMS REPORT ---
:1940 Author Organization [facility] Care Team Providers Name Role Phone Unavailable [...] Result Comments Laboratory Studies 2018-10-08 07:33:00 Identifier [id number] Result Time Unknown 2018-10-08 07:33:00 Test Item Value Reference Range Comments Unknown (test code = 2339-0) 131 mg/dL Unknown 70-100 F Ordering Physician UnknownLaboratory Wsmfkuy3847-96-65 07:41:00Identifier [id number] 6 Result Time 2018-10-07 07:41:00Unknown Test Item Value Reference Range Comments Unknown (test code = 2951-2) 134 mmol/L Unknown 135-145 F Ordering Physician UnknownLaboratory Egykosy3425-02-26 07:41:00Identifier [id number]- 6 Result Time 2018-10-07 07:41:00Unknown Test Item Value Reference Range Comments Unknown (test code = 2823-3) 4.1 mmol/L Unknown 3.5-5.0 F Ordering Physician UnknownLaboratory Aldgmar4870-60-28 07:41:00Identifier [id number]- 6 Result Time 2018-10-07 07:41:00Unknown Test Item Value Reference Range Comments Unknown (test code = 2345-7) 101 mg/dL Unknown 70-100 F Ordering Physician UnknownLaboratory Ybwovfl6195-59-81 07:41:00Identifier [id number]- 6 Result Time 2018-10-07 07:41:00Unknown Test Item Value Reference Range Comments Unknown (test code = 42852-2) 57.7 Unknown Unknown F Ordering Physician UnknownLaboratory Afasfoc5414-22-38 07:41:00Identifier [id number]- 6 Result Time 2018-10-07 07:41:00Unknown Test Item Value Reference Range Comments Unknown (test code = NullTestCode) 69.8 Unknown Unknown F Ordering Physician UnknownLaboratory Kgpvsdz7858-79-95 07:41:00Identifier 76751- 6 Result Time 2018-10-07 07:41:00Unknown Test Item Value Reference Range Comments Unknown (test code = 2160-0) 1.21 mg/dL Unknown 0.67-1.17 F Ordering Physician UnknownLaboratory Bramrea2315-21-37 07:41:00Identifier [id number]- 6 Result Time 2018-10-07 07:41:00Unknown Test Item Value Reference Range Comments Unknown (test code = 2075-0) 101 mmol/L Unknown 101-111 F Ordering Physician UnknownLaboratory Vvrakxm9052-75-37 07:41:00Identifier 11653- 6 Result Time 2018-10-07 07:41:00Unknown Test Item Value Reference Range Comments Unknown (test code = 2028-9) 25 mmol/L Unknown 22-32 F Ordering Physician UnknownLaboratory Jqxdpbz4838-59-16 07:41:00Identifier [id number]- 6 Result Time 2018-10-07 07:41:00Unknown Test Item Value Reference Range Comments Unknown (test code = 05017-4) 9.1 mg/dL Unknown 8.6-10.3 F Ordering Physician UnknownLaboratory Djohlje6476-19-96 07:41:00Identifier [id number]- 6 Result Time 2018-10-07 07:41:00Unknown Test Item Value Reference Range Comments Unknown (test code = 3094-0) 14 mg/dL Unknown 6-24 F Ordering Physician UnknownLaboratory Tsseogi2419-52-57 07:41:00Identifier [id number]- 6 Result Time 2018-10-07 07:41:00Unknown Test Item Value Reference Range Comments Unknown (test code = 3097-3) 11.6 Unknown 8-20 F Ordering Physician UnknownLaboratory Dtfvbfl1070-45-67 07:41:00Identifier 94172- 6 Result Time 2018-10-07 07:41:00Unknown Test Item Value Reference Range Comments Unknown (test code = 48686-8) 8 mmol/L Unknown 2-11 F Ordering Physician UnknownLaboratory Hhwqxwa1757-99-76 22:12:00Identifier 01781- 6 Result Time 2018-10-05 22:12:00Unknown Test Item Value Reference Range Comments Unknown (test code = 97740-4) 355 mg/dL Unknown 70-100 F Ordering Physician UnknownLaboratory Guuqmpx7713-14-65 04:45:00Identifier 13352- 6 Result Time 2018-10-05 04:45:00Unknown Test Item Value Reference Range Comments Unknown (test code = 1988-5) 23.24 mg/L Unknown 0-8.00 F Ordering Physician UnknownLaboratory Ozqejqj2133-32-88 21:41:00Identifier [id number]- 6 Result Time 2018-10-04 21:41:00Unknown Test Item Value Reference Range Comments Unknown (test code = 2143-6) 6.51 mcg/dL Unknown Unknown F Ordering Physician UnknownLaboratory Mcbcbua7305-89-39 04:33:00Identifier 62941- 6 Result Time 2018-10-04 04:33:00Unknown Test Item Value Reference Range Comments Unknown (test code = 18414-8) 48 pg/mL Unknown Unknown F Ordering Physician UnknownLaboratory Pxotjsi3333-07-35 04:33:00Identifier 53579- 6 Result Time 2018-10-04 04:33:00Unknown Test Item Value Reference Range Comments Unknown (test code = 2885-2) 6.7 g/dL Unknown 6.4-8.9 F Ordering Physician UnknownLaboratory Kzdxmxi8067-36-02 04:33:00Identifier 05921- 6 Result Time 2018-10-04 04:33:00Unknown Test Item Value Reference Range Comments Unknown (test code = 1975-2) 0.30 mg/dL Unknown 0.2-1.0 F Ordering Physician UnknownLaboratory Lxrdgii0686-04-73 04:33:00Identifier 07584- 6 Result Time 2018-10-04 04:33:00Unknown Test Item Value Reference Range Comments Unknown (test code = 2777-1) 3.4 mg/dL Unknown 2.5-5.0 F Ordering Physician UnknownLaboratory Wdjxwut8107-87-24 04:33:00Identifier 04505- 6 Result Time 2018-10-04 04:33:00Unknown Test Item Value Reference Range Comments Unknown (test code = 09980-4) 2.0 mg/dL Unknown 1.9-2.7 F Ordering Physician UnknownLaboratory Jpankkj3630-58-02 04:33:00Identifier 34761- 6 Result Time 2018-10-04 04:33:00Unknown Test Item Value Reference Range Comments Unknown (test code = NullTestCode) 3.2 g/dL Unknown 2-4 F Ordering Physician UnknownLaboratory Olvoswu7006-06-46 04:33:00Identifier [id number]- 6 Result Time 2018-10-04 04:33:00Unknown Test Item Value Reference Range Comments Unknown (test code = 1920-8) 15 U/L Unknown 13-39 F Ordering Physician UnknownLaboratory Lruyzxs9591-37-26 04:33:00Identifier 15137- 6 Result Time 2018-10-04 04:33:00Unknown Test Item Value Reference Range Comments Unknown (test code = 6768-6) 72 U/L Unknown 34-104 F Ordering Physician UnknownLaboratory Wsbmtpu4023-10-15 04:33:00Identifier 23985- 6 Result Time 2018-10-04 04:33:00Unknown Test Item Value Reference Range Comments Unknown (test code = 1759-0) 1.1 Unknown 1-3 F Ordering Physician UnknownLaboratory Ljxyhvj0007-62-48 04:33:00Identifier 70244- 6 Result Time 2018-10-04 04:33:00Unknown Test Item Value Reference Range Comments Unknown (test code = 16734-9) 3.5 g/dL Unknown 3.2-5.2 F Ordering Physician UnknownLaboratory Ndcfhrx9684-42-47 04:33:00Identifier 16160- 6 Result Time 2018-10-04 04:33:00Unknown Test Item Value Reference Range Comments Unknown (test code = 1742-6) 12 U/L Unknown 7-52 F Ordering Physician UnknownLaboratory Taavyzq5771-35-99 04:33:00Identifier 40879- 6 Result Time 2018-10-04 04:33:00Unknown Test Item Value Reference Range Comments Unknown (test code = 36141-9) 6.5 10^3/uL Unknown 3.5-10.8 F Ordering Physician UnknownLaboratory Loqgfdr3503-61-22 04:33:00Identifier 64475- 6 Result Time 2018-10-04 04:33:00Unknown Test Item Value Reference Range Comments Unknown (test code = 788-0) 14 % Unknown 10.5-15 F Ordering Physician UnknownLaboratory Prvpoqs7620-70-72 04:33:00Identifier 32191- 6 Result Time 2018-10-04 04:33:00Unknown Test Item Value Reference Range Comments Unknown (test code = 789-8) 3.96 10^6 /uL Unknown 4.18-5.48 F Ordering Physician UnknownLaboratory Cxtapck0540-25-06 04:33:00Identifier 57993- 6 Result Time 2018-10-04 04:33:00Unknown Test Item Value Reference Range Comments Unknown (test code = 777-3) 223 10^3/uL Unknown 150-450 F Ordering Physician UnknownLaboratory Xutwjgd8533-36-78 04:33:00Identifier 33640- 6 Result Time 2018-10-04 04:33:00Unknown Test Item Value Reference Range Comments Unknown (test code = 08927-0) 0 Unknown Unknown F Ordering Physician UnknownLaboratory Pwnghkx7019-38-59 04:33:00Identifier 00942- 6 Result Time 2018-10-04 04:33:00Unknown Test Item Value Reference Range Comments Unknown (test code = 771-6) 0 10^3/ul Unknown Unknown F Ordering Physician UnknownLaboratory Jokxubf0420-41-57 04:33:00Identifier 75020- 6 Result Time 2018-10-04 04:33:00Unknown Test Item Value Reference Range Comments Unknown (test code = 770-8) 62.0 % Unknown Unknown F Ordering Physician UnknownLaboratory Dmbfccy4418-50-77 04:33:00Identifier 32129- 6 Result Time 2018-10-04 04:33:00Unknown Test Item Value Reference Range Comments Unknown (test code = 5905-5) 14.1 % Unknown Unknown F Ordering Physician UnknownLaboratory Jbegese1339-80-23 04:33:00Identifier 88689- 6 Result Time 2018-10-04 04:33:00Unknown Test Item Value Reference Range Comments Unknown (test code = 70590-5) 8.2 fL Unknown 7.4-10.4 F Ordering Physician UnknownLaboratory Ozuocwr2139-81-26 04:33:00Identifier 82894- 6 Result Time 2018-10-04 04:33:00Unknown Test Item Value Reference Range Comments Unknown (test code = 787-2) 92 fL Unknown 80-94 F Ordering Physician UnknownLaboratory Ngofoiy1442-48-98 04:33:00Identifier 87509- 6 Result Time 2018-10-04 04:33:00Unknown Test Item Value Reference Range Comments Unknown (test code = 786-4) 34 g/dL Unknown 31-36 F Ordering Physician UnknownLaboratory Bsmuqlj0569-73-10 04:33:00Identifier 67961- 6 Result Time 2018-10-04 04:33:00Unknown Test Item Value Reference Range Comments Unknown (test code = 785-6) 31 pg Unknown - F Ordering Physician UnknownLaboratory Yuuufyz1085-26-89 04:33:00Identifier 73970- 6 Result Time 2018-10-04 04:33:00Unknown Test Item Value Reference Range Comments Unknown (test code = 736-9) 21.1 % Unknown Unknown F Ordering Physician UnknownLaboratory Gopapjd0739-46-24 04:33:00Identifier 45849- 6 Result Time 2018-10-04 04:33:00Unknown Test Item Value Reference Range Comments Unknown (test code = 718-7) 12.2 g/dL Unknown 14.0-18.0 F Ordering Physician UnknownLaboratory Zsmazun7467-66-08 04:33:00Identifier 93331- 6 Result Time 2018-10-04 04:33:00Unknown Test Item Value Reference Range Comments Unknown (test code = 4544-3) 36 % Unknown 36-46 F Ordering Physician UnknownLaboratory Ktrtxxe2498-19-19 04:33:00Identifier 28033- 6 Result Time 2018-10-04 04:33:00Unknown Test Item Value Reference Range Comments Unknown (test code = 713-8) 2.4 % Unknown Unknown F Ordering Physician UnknownLaboratory Cbxdkco5087-25-11 04:33:00Identifier 46613- 6 Result Time 2018-10-04 04:33:00Unknown Test Item Value Reference Range Comments Unknown (test code = 706-2) 0.4 % Unknown Unknown F Ordering Physician UnknownLaboratory Qtkxcdp7918-39-33 04:33:00Identifier 46636- 6 Result Time 2018-10-04 04:33:00Unknown Test Item Value Reference Range Comments Unknown (test code = 751-8) 4.0 10^3/ul Unknown 1.5-7.7 F Ordering Physician UnknownLaboratory Gnasqms3915-82-93 04:33:00Identifier 65373- 6 Result Time 2018-10-04 04:33:00Unknown Test Item Value Reference Range Comments Unknown (test code = 742-7) 0.9 10^3/ul Unknown 0-0.8 F Ordering Physician UnknownLaboratory Obmadyi2889-65-06 04:33:00Identifier 31493- 6 Result Time 2018-10-04 04:33:00Unknown Test Item Value Reference Range Comments Unknown (test code = 731-0) 1.4 10^3/ul Unknown 1.0-4.8 F Ordering Physician UnknownLaboratory Esicblj5647-95-07 04:33:00Identifier 13091- 6 Result Time 2018-10-04 04:33:00Unknown Test Item Value Reference Range Comments Unknown (test code = 711-2) 0.2 10^3/ul Unknown 0-0.6 F Ordering Physician UnknownLaboratory Zvudtzr6621-13-66 04:33:00Identifier 16884- 6 Result Time 2018-10-04 04:33:00Unknown Test Item Value Reference Range Comments Unknown (test code = 704-7) 0 10^3/ul Unknown 0-0.2 F Ordering Physician UnknownLaboratory Ljollng3724-71-63 21:14:00Identifier 43978- 6 Result Time 2018-10-03 21:14:00Unknown Test Item Value Reference Range Comments Unknown (test code = 3095-7) 727 mg/dL Unknown Unknown F Ordering Physician UnknownLaboratory Kgczonr0798-35-96 21:14:00Identifier [id number]- 6 Result Time 2018-10-03 21:14:00Unknown Test Item Value Reference Range Comments Unknown (test code = 2955-3) 54 mmol/L Unknown Unknown F Ordering Physician UnknownLaboratory Finykbv6946-41-06 21:14:00Identifier 94667- 6 Result Time 2018-10-03 21:14:00Unknown Test Item Value Reference Range Comments Unknown (test code = 2161-8) 88.57 mg/dL Unknown Unknown F Ordering Physician UnknownLaboratory Wuvxpwn4854-24-82 19:37:00Identifier 53453- 6 Result Time 2018-10-03 19:37:00Unknown Test Item Value Reference Range Comments Unknown (test code = 51280-5) 0.03 ng/mL Unknown Unknown F Ordering Physician UnknownLaboratory Wpevqma6493-93-13 06:49:00Identifier 39500- 6 Result Time 2018-10-03 06:49:00Unknown Test Item Value Reference Range Comments Unknown (test code = NullTestCode) 5.0 Unknown 5-9 F Ordering Physician UnknownLaboratory Bzrqrgn9334-74-26 06:49:00Identifier 79828- 6 Result Time 2018-10-03 06:49:00Unknown Test Item Value Reference Range Comments Unknown (test code = 00097-7) 1.011 Unknown 1.010-1.030 F Ordering Physician UnknownLaboratory Trtwptu0436-69-52 03:30:00Identifier 18445- 6 Result Time 2018-10-03 03:30:00Unknown Test Item Value Reference Range Comments Unknown (test code = 3016-3) 2.96 mcIU/mL Unknown 0.34-5.60 F Ordering Physician UnknownLaboratory Cfdftth2547-95-27 03:30:00Identifier 37977- 6 Result Time 2018-10-03 03:30:00Unknown Test Item Value Reference Range Comments Unknown (test code = 2524-7) 1.2 mmol/L Unknown 0.5-2.0 F Ordering Physician Unknown
--- OUTSIDE RECORDS SUMMARY | 2019-06-08 15:20 | XMS REPORT ---
:1940 Author Organization [facility] Care Team Providers Name Role Phone Unavailable [...] Result Comments Laboratory Studies 2018-10-08 07:33:00 Identifier [id number] Result Time Unknown 2018-10-08 07:33:00 Test Item Value Reference Range Comments Unknown (test code = 2339-0) 131 mg/dL Unknown 70-100 F Ordering Physician UnknownLaboratory Eqriemr3234-20-54 07:41:00Identifier 18652- 6 Result Time 2018-10-07 07:41:00Unknown Test Item Value Reference Range Comments Unknown (test code = 2951-2) 134 mmol/L Unknown 135-145 F Ordering Physician UnknownLaboratory Azpaxua7783-81-59 07:41:00Identifier 41366- 6 Result Time 2018-10-07 07:41:00Unknown Test Item Value Reference Range Comments Unknown (test code = 2823-3) 4.1 mmol/L Unknown 3.5-5.0 F Ordering Physician UnknownLaboratory Apawdvk8266-82-93 07:41:00Identifier 26539- 6 Result Time 2018-10-07 07:41:00Unknown Test Item Value Reference Range Comments Unknown (test code = 2345-7) 101 mg/dL Unknown 70-100 F Ordering Physician UnknownLaboratory Jjyriix6466-18-06 07:41:00Identifier 16887- 6 Result Time 2018-10-07 07:41:00Unknown Test Item Value Reference Range Comments Unknown (test code = 05470-5) 57.7 Unknown Unknown F Ordering Physician UnknownLaboratory Wmkjoiw7360-01-01 07:41:00Identifier 11807- 6 Result Time 2018-10-07 07:41:00Unknown Test Item Value Reference Range Comments Unknown (test code = NullTestCode) 69.8 Unknown Unknown F Ordering Physician UnknownLaboratory Hwufgrg5709-39-06 07:41:00Identifier 49851- 6 Result Time 2018-10-07 07:41:00Unknown Test Item Value Reference Range Comments Unknown (test code = 2160-0) 1.21 mg/dL Unknown 0.67-1.17 F Ordering Physician UnknownLaboratory Fzyieem5786-63-01 07:41:00Identifier 94163- 6 Result Time 2018-10-07 07:41:00Unknown Test Item Value Reference Range Comments Unknown (test code = 2075-0) 101 mmol/L Unknown 101-111 F Ordering Physician UnknownLaboratory Lksrbig4112-47-26 07:41:00Identifier 15071- 6 Result Time 2018-10-07 07:41:00Unknown Test Item Value Reference Range Comments Unknown (test code = 2028-9) 25 mmol/L Unknown 22-32 F Ordering Physician UnknownLaboratory Avtbdxg5737-46-56 07:41:00Identifier 95193- 6 Result Time 2018-10-07 07:41:00Unknown Test Item Value Reference Range Comments Unknown (test code = 70909-7) 9.1 mg/dL Unknown 8.6-10.3 F Ordering Physician UnknownLaboratory Mjismpe8043-77-28 07:41:00Identifier 46250- 6 Result Time 2018-10-07 07:41:00Unknown Test Item Value Reference Range Comments Unknown (test code = 3094-0) 14 mg/dL Unknown 6-24 F Ordering Physician UnknownLaboratory Pegthcj5043-77-55 07:41:00Identifier 84894- 6 Result Time 2018-10-07 07:41:00Unknown Test Item Value Reference Range Comments Unknown (test code = 3097-3) 11.6 Unknown 8-20 F Ordering Physician UnknownLaboratory Vqazkcc0477-17-16 07:41:00Identifier 61903- 6 Result Time 2018-10-07 07:41:00Unknown Test Item Value Reference Range Comments Unknown (test code = 55966-7) 8 mmol/L Unknown 2-11 F Ordering Physician UnknownLaboratory Yeocjng1671-27-74 22:12:00Identifier 81849- 6 Result Time 2018-10-05 22:12:00Unknown Test Item Value Reference Range Comments Unknown (test code = 16578-1) 355 mg/dL Unknown 70-100 F Ordering Physician UnknownLaboratory Aocrfwe3875-50-78 04:45:00Identifier 76559- 6 Result Time 2018-10-05 04:45:00Unknown Test Item Value Reference Range Comments Unknown (test code = 1988-5) 23.24 mg/L Unknown 0-8.00 F Ordering Physician UnknownLaboratory Xptlvlr2402-25-15 21:41:00Identifier 50057- 6 Result Time 2018-10-04 21:41:00Unknown Test Item Value Reference Range Comments Unknown (test code = 2143-6) 6.51 mcg/dL Unknown Unknown F Ordering Physician UnknownLaboratory Romiomh7605-85-78 04:33:00Identifier 08668- 6 Result Time 2018-10-04 04:33:00Unknown Test Item Value Reference Range Comments Unknown (test code = 73603-7) 48 pg/mL Unknown Unknown F Ordering Physician UnknownLaboratory Feohwha5980-52-80 04:33:00Identifier 00005- 6 Result Time 2018-10-04 04:33:00Unknown Test Item Value Reference Range Comments Unknown (test code = 2885-2) 6.7 g/dL Unknown 6.4-8.9 F Ordering Physician UnknownLaboratory Wyuyspt4815-79-22 04:33:00Identifier 58717- 6 Result Time 2018-10-04 04:33:00Unknown Test Item Value Reference Range Comments Unknown (test code = 1975-2) 0.30 mg/dL Unknown 0.2-1.0 F Ordering Physician UnknownLaboratory Jfglulo3035-63-40 04:33:00Identifier 86237- 6 Result Time 2018-10-04 04:33:00Unknown Test Item Value Reference Range Comments Unknown (test code = 2777-1) 3.4 mg/dL Unknown 2.5-5.0 F Ordering Physician UnknownLaboratory Anlhvbw8742-62-85 04:33:00Identifier 09986- 6 Result Time 2018-10-04 04:33:00Unknown Test Item Value Reference Range Comments Unknown (test code = 49269-0) 2.0 mg/dL Unknown 1.9-2.7 F Ordering Physician UnknownLaboratory Mzamgga8673-51-99 04:33:00Identifier 87098- 6 Result Time 2018-10-04 04:33:00Unknown Test Item Value Reference Range Comments Unknown (test code = NullTestCode) 3.2 g/dL Unknown 2-4 F Ordering Physician UnknownLaboratory Yerddee1840-32-96 04:33:00Identifier 87192- 6 Result Time 2018-10-04 04:33:00Unknown Test Item Value Reference Range Comments Unknown (test code = 1920-8) 15 U/L Unknown 13-39 F Ordering Physician UnknownLaboratory Picsgzt7997-61-43 04:33:00Identifier 18633- 6 Result Time 2018-10-04 04:33:00Unknown Test Item Value Reference Range Comments Unknown (test code = 6768-6) 72 U/L Unknown 34-104 F Ordering Physician UnknownLaboratory Eftidjf8663-56-31 04:33:00Identifier 61601- 6 Result Time 2018-10-04 04:33:00Unknown Test Item Value Reference Range Comments Unknown (test code = 1759-0) 1.1 Unknown 1-3 F Ordering Physician UnknownLaboratory Aogityx6602-64-09 04:33:00Identifier 81617- 6 Result Time 2018-10-04 04:33:00Unknown Test Item Value Reference Range Comments Unknown (test code = 66144-7) 3.5 g/dL Unknown 3.2-5.2 F Ordering Physician UnknownLaboratory Migraij9845-74-01 04:33:00Identifier 79743- 6 Result Time 2018-10-04 04:33:00Unknown Test Item Value Reference Range Comments Unknown (test code = 1742-6) 12 U/L Unknown 7-52 F Ordering Physician UnknownLaboratory Drvqjov9316-05-69 04:33:00Identifier 27201- 6 Result Time 2018-10-04 04:33:00Unknown Test Item Value Reference Range Comments Unknown (test code = 22137-3) 6.5 10^3/uL Unknown 3.5-10.8 F Ordering Physician UnknownLaboratory Znhkwdv6832-42-73 04:33:00Identifier 66922- 6 Result Time 2018-10-04 04:33:00Unknown Test Item Value Reference Range Comments Unknown (test code = 788-0) 14 % Unknown 10.5-15 F Ordering Physician UnknownLaboratory Mfcvgbb1484-03-22 04:33:00Identifier 84498- 6 Result Time 2018-10-04 04:33:00Unknown Test Item Value Reference Range Comments Unknown (test code = 789-8) 3.96 10^6 /uL Unknown 4.18-5.48 F Ordering Physician UnknownLaboratory Tmdkiep9229-42-94 04:33:00Identifier 68305- 6 Result Time 2018-10-04 04:33:00Unknown Test Item Value Reference Range Comments Unknown (test code = 777-3) 223 10^3/uL Unknown 150-450 F Ordering Physician UnknownLaboratory Sycfhph9741-69-91 04:33:00Identifier 94383- 6 Result Time 2018-10-04 04:33:00Unknown Test Item Value Reference Range Comments Unknown (test code = 38235-5) 0 Unknown Unknown F Ordering Physician UnknownLaboratory Almmotb6640-21-02 04:33:00Identifier 84271- 6 Result Time 2018-10-04 04:33:00Unknown Test Item Value Reference Range Comments Unknown (test code = 771-6) 0 10^3/ul Unknown Unknown F Ordering Physician UnknownLaboratory Aplzeod1418-68-31 04:33:00Identifier 54090- 6 Result Time 2018-10-04 04:33:00Unknown Test Item Value Reference Range Comments Unknown (test code = 770-8) 62.0 % Unknown Unknown F Ordering Physician UnknownLaboratory Pauuwhm8659-28-63 04:33:00Identifier 42486- 6 Result Time 2018-10-04 04:33:00Unknown Test Item Value Reference Range Comments Unknown (test code = 5905-5) 14.1 % Unknown Unknown F Ordering Physician UnknownLaboratory Zoccvfz9908-87-62 04:33:00Identifier 63507- 6 Result Time 2018-10-04 04:33:00Unknown Test Item Value Reference Range Comments Unknown (test code = 98878-2) 8.2 fL Unknown 7.4-10.4 F Ordering Physician UnknownLaboratory Ogmcwzy8477-22-35 04:33:00Identifier 73989- 6 Result Time 2018-10-04 04:33:00Unknown Test Item Value Reference Range Comments Unknown (test code = 787-2) 92 fL Unknown 80-94 F Ordering Physician UnknownLaboratory Rbiruqp0444-34-33 04:33:00Identifier 77771- 6 Result Time 2018-10-04 04:33:00Unknown Test Item Value Reference Range Comments Unknown (test code = 786-4) 34 g/dL Unknown 31-36 F Ordering Physician UnknownLaboratory Ibwtsek6918-87-19 04:33:00Identifier 39355- 6 Result Time 2018-10-04 04:33:00Unknown Test Item Value Reference Range Comments Unknown (test code = 785-6) 31 pg Unknown - F Ordering Physician UnknownLaboratory Idsbcef8440-84-73 04:33:00Identifier 49587- 6 Result Time 2018-10-04 04:33:00Unknown Test Item Value Reference Range Comments Unknown (test code = 736-9) 21.1 % Unknown Unknown F Ordering Physician UnknownLaboratory Swhgxgq9286-03-09 04:33:00Identifier 94156- 6 Result Time 2018-10-04 04:33:00Unknown Test Item Value Reference Range Comments Unknown (test code = 718-7) 12.2 g/dL Unknown 14.0-18.0 F Ordering Physician UnknownLaboratory Fopdxap0156-07-42 04:33:00Identifier 79280- 6 Result Time 2018-10-04 04:33:00Unknown Test Item Value Reference Range Comments Unknown (test code = 4544-3) 36 % Unknown 36-46 F Ordering Physician UnknownLaboratory Bwlkkro8639-14-74 04:33:00Identifier 11642- 6 Result Time 2018-10-04 04:33:00Unknown Test Item Value Reference Range Comments Unknown (test code = 713-8) 2.4 % Unknown Unknown F Ordering Physician UnknownLaboratory Odgmlmp9559-27-60 04:33:00Identifier 51828- 6 Result Time 2018-10-04 04:33:00Unknown Test Item Value Reference Range Comments Unknown (test code = 706-2) 0.4 % Unknown Unknown F Ordering Physician UnknownLaboratory Oxucnye3069-65-96 04:33:00Identifier 79942- 6 Result Time 2018-10-04 04:33:00Unknown Test Item Value Reference Range Comments Unknown (test code = 751-8) 4.0 10^3/ul Unknown 1.5-7.7 F Ordering Physician UnknownLaboratory Pltghwi1213-21-53 04:33:00Identifier 10596- 6 Result Time 2018-10-04 04:33:00Unknown Test Item Value Reference Range Comments Unknown (test code = 742-7) 0.9 10^3/ul Unknown 0-0.8 F Ordering Physician UnknownLaboratory Eykomsv8975-12-56 04:33:00Identifier 30164- 6 Result Time 2018-10-04 04:33:00Unknown Test Item Value Reference Range Comments Unknown (test code = 731-0) 1.4 10^3/ul Unknown 1.0-4.8 F Ordering Physician UnknownLaboratory Xbrinog2685-89-38 04:33:00Identifier 00892- 6 Result Time 2018-10-04 04:33:00Unknown Test Item Value Reference Range Comments Unknown (test code = 711-2) 0.2 10^3/ul Unknown 0-0.6 F Ordering Physician UnknownLaboratory Twuxmkq3904-01-90 04:33:00Identifier 94832- 6 Result Time 2018-10-04 04:33:00Unknown Test Item Value Reference Range Comments Unknown (test code = 704-7) 0 10^3/ul Unknown 0-0.2 F Ordering Physician UnknownLaboratory Shfcbbd7844-41-76 21:14:00Identifier 51693- 6 Result Time 2018-10-03 21:14:00Unknown Test Item Value Reference Range Comments Unknown (test code = 3095-7) 727 mg/dL Unknown Unknown F Ordering Physician UnknownLaboratory Hkbjqyt0951-69-82 21:14:00Identifier 93286- 6 Result Time 2018-10-03 21:14:00Unknown Test Item Value Reference Range Comments Unknown (test code = 2955-3) 54 mmol/L Unknown Unknown F Ordering Physician UnknownLaboratory Pvqjaun6588-91-32 21:14:00Identifier 65273- 6 Result Time 2018-10-03 21:14:00Unknown Test Item Value Reference Range Comments Unknown (test code = 2161-8) 88.57 mg/dL Unknown Unknown F Ordering Physician UnknownLaboratory Zpnggfv2789-76-27 19:37:00Identifier 60190- 6 Result Time 2018-10-03 19:37:00Unknown Test Item Value Reference Range Comments Unknown (test code = 38598-4) 0.03 ng/mL Unknown Unknown F Ordering Physician UnknownLaboratory Lpnyfkk6948-70-18 06:49:00Identifier 72358- 6 Result Time 2018-10-03 06:49:00Unknown Test Item Value Reference Range Comments Unknown (test code = NullTestCode) 5.0 Unknown 5-9 F Ordering Physician UnknownLaboratory Vxhjatt1656-05-60 06:49:00Identifier 04034- 6 Result Time 2018-10-03 06:49:00Unknown Test Item Value Reference Range Comments Unknown (test code = 47540-1) 1.011 Unknown 1.010-1.030 F Ordering Physician UnknownLaboratory Uawwvqh8513-51-30 03:30:00Identifier 66553- 6 Result Time 2018-10-03 03:30:00Unknown Test Item Value Reference Range Comments Unknown (test code = 3016-3) 2.96 mcIU/mL Unknown 0.34-5.60 F Ordering Physician UnknownLaboratory Icvylxt7900-55-88 03:30:00Identifier 51068- 6 Result Time 2018-10-03 03:30:00Unknown Test Item Value Reference Range Comments Unknown (test code = 2524-7) 1.2 mmol/L Unknown 0.5-2.0 F Ordering Physician Unknown
--- OUTSIDE RECORDS SUMMARY | 2019-06-08 15:20 | XMS REPORT ---
:1940 Author Organization [facility] Care Team Providers Name Role Phone Unavailable [...] Result Comments Laboratory Studies 2018-10-08 07:33:00 Identifier [id number] Result Time Unknown 2018-10-08 07:33:00 Test Item Value Reference Range Comments Unknown (test code = 2339-0) 131 mg/dL Unknown 70-100 F Ordering Physician UnknownLaboratory Qchdwbf7474-22-26 07:41:00Identifier 29001- 6 Result Time 2018-10-07 07:41:00Unknown Test Item Value Reference Range Comments Unknown (test code = 2951-2) 134 mmol/L Unknown 135-145 F Ordering Physician UnknownLaboratory Nhzqsyl6926-46-65 07:41:00Identifier 50295- 6 Result Time 2018-10-07 07:41:00Unknown Test Item Value Reference Range Comments Unknown (test code = 2823-3) 4.1 mmol/L Unknown 3.5-5.0 F Ordering Physician UnknownLaboratory Kiumqoe8785-40-44 07:41:00Identifier [id number]- 6 Result Time 2018-10-07 07:41:00Unknown Test Item Value Reference Range Comments Unknown (test code = 2345-7) 101 mg/dL Unknown 70-100 F Ordering Physician UnknownLaboratory Wzhshgj5238-56-72 07:41:00Identifier 26012- 6 Result Time 2018-10-07 07:41:00Unknown Test Item Value Reference Range Comments Unknown (test code = 07333-6) 57.7 Unknown Unknown F Ordering Physician UnknownLaboratory Hukphta1062-54-90 07:41:00Identifier 60426- 6 Result Time 2018-10-07 07:41:00Unknown Test Item Value Reference Range Comments Unknown (test code = NullTestCode) 69.8 Unknown Unknown F Ordering Physician UnknownLaboratory Rbgfgzq8012-99-22 07:41:00Identifier 09037- 6 Result Time 2018-10-07 07:41:00Unknown Test Item Value Reference Range Comments Unknown (test code = 2160-0) 1.21 mg/dL Unknown 0.67-1.17 F Ordering Physician UnknownLaboratory Dkgtsmh7973-39-95 07:41:00Identifier 16732- 6 Result Time 2018-10-07 07:41:00Unknown Test Item Value Reference Range Comments Unknown (test code = 2075-0) 101 mmol/L Unknown 101-111 F Ordering Physician UnknownLaboratory Qsqjkqx6552-58-04 07:41:00Identifier 90859- 6 Result Time 2018-10-07 07:41:00Unknown Test Item Value Reference Range Comments Unknown (test code = 2028-9) 25 mmol/L Unknown 22-32 F Ordering Physician UnknownLaboratory Mkbbgwz2506-48-18 07:41:00Identifier 84126- 6 Result Time 2018-10-07 07:41:00Unknown Test Item Value Reference Range Comments Unknown (test code = 58568-5) 9.1 mg/dL Unknown 8.6-10.3 F Ordering Physician UnknownLaboratory Lymelyf1937-66-78 07:41:00Identifier 28822- 6 Result Time 2018-10-07 07:41:00Unknown Test Item Value Reference Range Comments Unknown (test code = 3094-0) 14 mg/dL Unknown 6-24 F Ordering Physician UnknownLaboratory Qnrgrwc5693-71-59 07:41:00Identifier 00871- 6 Result Time 2018-10-07 07:41:00Unknown Test Item Value Reference Range Comments Unknown (test code = 3097-3) 11.6 Unknown 8-20 F Ordering Physician UnknownLaboratory Xynyqop3416-30-31 07:41:00Identifier 02312- 6 Result Time 2018-10-07 07:41:00Unknown Test Item Value Reference Range Comments Unknown (test code = 09908-0) 8 mmol/L Unknown 2-11 F Ordering Physician UnknownLaboratory Gijfdty9593-89-16 22:12:00Identifier 79256- 6 Result Time 2018-10-05 22:12:00Unknown Test Item Value Reference Range Comments Unknown (test code = 80698-6) 355 mg/dL Unknown 70-100 F Ordering Physician UnknownLaboratory Olvcobe1363-10-65 04:45:00Identifier 99352- 6 Result Time 2018-10-05 04:45:00Unknown Test Item Value Reference Range Comments Unknown (test code = 1988-5) 23.24 mg/L Unknown 0-8.00 F Ordering Physician UnknownLaboratory Nllecni3930-04-86 21:41:00Identifier 31242- 6 Result Time 2018-10-04 21:41:00Unknown Test Item Value Reference Range Comments Unknown (test code = 2143-6) 6.51 mcg/dL Unknown Unknown F Ordering Physician UnknownLaboratory Ryvtdqh3656-70-16 04:33:00Identifier 29537- 6 Result Time 2018-10-04 04:33:00Unknown Test Item Value Reference Range Comments Unknown (test code = 68055-5) 48 pg/mL Unknown Unknown F Ordering Physician UnknownLaboratory Rmfufvy3451-70-69 04:33:00Identifier 05368- 6 Result Time 2018-10-04 04:33:00Unknown Test Item Value Reference Range Comments Unknown (test code = 2885-2) 6.7 g/dL Unknown 6.4-8.9 F Ordering Physician UnknownLaboratory Xmveaoa6305-87-38 04:33:00Identifier 67327- 6 Result Time 2018-10-04 04:33:00Unknown Test Item Value Reference Range Comments Unknown (test code = 1975-2) 0.30 mg/dL Unknown 0.2-1.0 F Ordering Physician UnknownLaboratory Ohnzdzx0033-47-87 04:33:00Identifier 14180- 6 Result Time 2018-10-04 04:33:00Unknown Test Item Value Reference Range Comments Unknown (test code = 2777-1) 3.4 mg/dL Unknown 2.5-5.0 F Ordering Physician UnknownLaboratory Rootthb0973-87-01 04:33:00Identifier 14546- 6 Result Time 2018-10-04 04:33:00Unknown Test Item Value Reference Range Comments Unknown (test code = 73878-5) 2.0 mg/dL Unknown 1.9-2.7 F Ordering Physician UnknownLaboratory Tdiwrvs4959-76-81 04:33:00Identifier 38037- 6 Result Time 2018-10-04 04:33:00Unknown Test Item Value Reference Range Comments Unknown (test code = NullTestCode) 3.2 g/dL Unknown 2-4 F Ordering Physician UnknownLaboratory Nbuumhd3800-35-35 04:33:00Identifier 61055- 6 Result Time 2018-10-04 04:33:00Unknown Test Item Value Reference Range Comments Unknown (test code = 1920-8) 15 U/L Unknown 13-39 F Ordering Physician UnknownLaboratory Ippaith0238-97-04 04:33:00Identifier 54490- 6 Result Time 2018-10-04 04:33:00Unknown Test Item Value Reference Range Comments Unknown (test code = 6768-6) 72 U/L Unknown 34-104 F Ordering Physician UnknownLaboratory Piavgab2510-36-54 04:33:00Identifier 91552- 6 Result Time 2018-10-04 04:33:00Unknown Test Item Value Reference Range Comments Unknown (test code = 1759-0) 1.1 Unknown 1-3 F Ordering Physician UnknownLaboratory Mitcdef2368-17-72 04:33:00Identifier 94886- 6 Result Time 2018-10-04 04:33:00Unknown Test Item Value Reference Range Comments Unknown (test code = 90913-4) 3.5 g/dL Unknown 3.2-5.2 F Ordering Physician UnknownLaboratory Ggnsicr3433-57-19 04:33:00Identifier 57346- 6 Result Time 2018-10-04 04:33:00Unknown Test Item Value Reference Range Comments Unknown (test code = 1742-6) 12 U/L Unknown 7-52 F Ordering Physician UnknownLaboratory Wzpjfpo9391-37-58 04:33:00Identifier 86697- 6 Result Time 2018-10-04 04:33:00Unknown Test Item Value Reference Range Comments Unknown (test code = 86514-1) 6.5 10^3/uL Unknown 3.5-10.8 F Ordering Physician UnknownLaboratory Vuwcayb6668-98-58 04:33:00Identifier 49176- 6 Result Time 2018-10-04 04:33:00Unknown Test Item Value Reference Range Comments Unknown (test code = 788-0) 14 % Unknown 10.5-15 F Ordering Physician UnknownLaboratory Lbbucmx0415-44-56 04:33:00Identifier 49300- 6 Result Time 2018-10-04 04:33:00Unknown Test Item Value Reference Range Comments Unknown (test code = 789-8) 3.96 10^6 /uL Unknown 4.18-5.48 F Ordering Physician UnknownLaboratory Gmsyfjd2786-35-47 04:33:00Identifier 38337- 6 Result Time 2018-10-04 04:33:00Unknown Test Item Value Reference Range Comments Unknown (test code = 777-3) 223 10^3/uL Unknown 150-450 F Ordering Physician UnknownLaboratory Bgrbwwq4744-17-28 04:33:00Identifier 39247- 6 Result Time 2018-10-04 04:33:00Unknown Test Item Value Reference Range Comments Unknown (test code = 94690-9) 0 Unknown Unknown F Ordering Physician UnknownLaboratory Wnrhybf8043-15-11 04:33:00Identifier 41009- 6 Result Time 2018-10-04 04:33:00Unknown Test Item Value Reference Range Comments Unknown (test code = 771-6) 0 10^3/ul Unknown Unknown F Ordering Physician UnknownLaboratory Zsvuxym1455-12-55 04:33:00Identifier 29537- 6 Result Time 2018-10-04 04:33:00Unknown Test Item Value Reference Range Comments Unknown (test code = 770-8) 62.0 % Unknown Unknown F Ordering Physician UnknownLaboratory Bdinizt4559-62-00 04:33:00Identifier 65397- 6 Result Time 2018-10-04 04:33:00Unknown Test Item Value Reference Range Comments Unknown (test code = 5905-5) 14.1 % Unknown Unknown F Ordering Physician UnknownLaboratory Evrhhjs6259-35-59 04:33:00Identifier 25833- 6 Result Time 2018-10-04 04:33:00Unknown Test Item Value Reference Range Comments Unknown (test code = 77291-6) 8.2 fL Unknown 7.4-10.4 F Ordering Physician UnknownLaboratory Lwtbqgv3330-22-44 04:33:00Identifier 75210- 6 Result Time 2018-10-04 04:33:00Unknown Test Item Value Reference Range Comments Unknown (test code = 787-2) 92 fL Unknown 80-94 F Ordering Physician UnknownLaboratory Fhklxzv1273-40-69 04:33:00Identifier 58822- 6 Result Time 2018-10-04 04:33:00Unknown Test Item Value Reference Range Comments Unknown (test code = 786-4) 34 g/dL Unknown 31-36 F Ordering Physician UnknownLaboratory Ggumyye8841-25-77 04:33:00Identifier 53203- 6 Result Time 2018-10-04 04:33:00Unknown Test Item Value Reference Range Comments Unknown (test code = 785-6) 31 pg Unknown - F Ordering Physician UnknownLaboratory Ydmmftx4146-31-07 04:33:00Identifier 31404- 6 Result Time 2018-10-04 04:33:00Unknown Test Item Value Reference Range Comments Unknown (test code = 736-9) 21.1 % Unknown Unknown F Ordering Physician UnknownLaboratory Omzogbk4163-81-97 04:33:00Identifier 17772- 6 Result Time 2018-10-04 04:33:00Unknown Test Item Value Reference Range Comments Unknown (test code = 718-7) 12.2 g/dL Unknown 14.0-18.0 F Ordering Physician UnknownLaboratory Xgxtgjg2419-85-32 04:33:00Identifier 85981- 6 Result Time 2018-10-04 04:33:00Unknown Test Item Value Reference Range Comments Unknown (test code = 4544-3) 36 % Unknown 36-46 F Ordering Physician UnknownLaboratory Nnkjapm9900-18-58 04:33:00Identifier 54736- 6 Result Time 2018-10-04 04:33:00Unknown Test Item Value Reference Range Comments Unknown (test code = 713-8) 2.4 % Unknown Unknown F Ordering Physician UnknownLaboratory Omyudww3455-71-80 04:33:00Identifier 21136- 6 Result Time 2018-10-04 04:33:00Unknown Test Item Value Reference Range Comments Unknown (test code = 706-2) 0.4 % Unknown Unknown F Ordering Physician UnknownLaboratory Ygxcqyf1487-39-48 04:33:00Identifier 27649- 6 Result Time 2018-10-04 04:33:00Unknown Test Item Value Reference Range Comments Unknown (test code = 751-8) 4.0 10^3/ul Unknown 1.5-7.7 F Ordering Physician UnknownLaboratory Tlpavud8429-03-83 04:33:00Identifier 35988- 6 Result Time 2018-10-04 04:33:00Unknown Test Item Value Reference Range Comments Unknown (test code = 742-7) 0.9 10^3/ul Unknown 0-0.8 F Ordering Physician UnknownLaboratory Kjewxpx2197-95-85 04:33:00Identifier 60655- 6 Result Time 2018-10-04 04:33:00Unknown Test Item Value Reference Range Comments Unknown (test code = 731-0) 1.4 10^3/ul Unknown 1.0-4.8 F Ordering Physician UnknownLaboratory Bzhpfan1471-99-97 04:33:00Identifier 46924- 6 Result Time 2018-10-04 04:33:00Unknown Test Item Value Reference Range Comments Unknown (test code = 711-2) 0.2 10^3/ul Unknown 0-0.6 F Ordering Physician UnknownLaboratory Tcnzcdo3508-65-15 04:33:00Identifier 88254- 6 Result Time 2018-10-04 04:33:00Unknown Test Item Value Reference Range Comments Unknown (test code = 704-7) 0 10^3/ul Unknown 0-0.2 F Ordering Physician UnknownLaboratory Xsukzsx8501-13-55 21:14:00Identifier 60042- 6 Result Time 2018-10-03 21:14:00Unknown Test Item Value Reference Range Comments Unknown (test code = 3095-7) 727 mg/dL Unknown Unknown F Ordering Physician UnknownLaboratory Tstmzhn1854-02-10 21:14:00Identifier 41082- 6 Result Time 2018-10-03 21:14:00Unknown Test Item Value Reference Range Comments Unknown (test code = 2955-3) 54 mmol/L Unknown Unknown F Ordering Physician UnknownLaboratory Ifnmiho7135-86-37 21:14:00Identifier 68454- 6 Result Time 2018-10-03 21:14:00Unknown Test Item Value Reference Range Comments Unknown (test code = 2161-8) 88.57 mg/dL Unknown Unknown F Ordering Physician UnknownLaboratory Mhkbmzt2489-57-83 19:37:00Identifier 24833- 6 Result Time 2018-10-03 19:37:00Unknown Test Item Value Reference Range Comments Unknown (test code = 32297-1) 0.03 ng/mL Unknown Unknown F Ordering Physician UnknownLaboratory Fmrdioy5687-68-30 06:49:00Identifier 96128- 6 Result Time 2018-10-03 06:49:00Unknown Test Item Value Reference Range Comments Unknown (test code = NullTestCode) 5.0 Unknown 5-9 F Ordering Physician UnknownLaboratory Kdhwqif1917-33-06 06:49:00Identifier 16460- 6 Result Time 2018-10-03 06:49:00Unknown Test Item Value Reference Range Comments Unknown (test code = 85406-2) 1.011 Unknown 1.010-1.030 F Ordering Physician UnknownLaboratory Rxtrllx5202-40-02 03:30:00Identifier 47024- 6 Result Time 2018-10-03 03:30:00Unknown Test Item Value Reference Range Comments Unknown (test code = 3016-3) 2.96 mcIU/mL Unknown 0.34-5.60 F Ordering Physician UnknownLaboratory Wcmxhxe4112-19-88 03:30:00Identifier 75806- 6 Result Time 2018-10-03 03:30:00Unknown Test Item Value Reference Range Comments Unknown (test code = 2524-7) 1.2 mmol/L Unknown 0.5-2.0 F Ordering Physician Unknown
--- OUTSIDE RECORDS SUMMARY | 2019-06-08 15:20 | XMS REPORT ---
:1940 Author Organization [facility] Care Team Providers Name Role Phone Unavailable [...] Result Comments Laboratory Studies 2018-10-08 07:33:00 Identifier [id number] Result Time Unknown 2018-10-08 07:33:00 Test Item Value Reference Range Comments Unknown (test code = 2339-0) 131 mg/dL Unknown 70-100 F Ordering Physician UnknownLaboratory Borfhcq2621-36-27 07:41:00Identifier 58340- 6 Result Time 2018-10-07 07:41:00Unknown Test Item Value Reference Range Comments Unknown (test code = 2951-2) 134 mmol/L Unknown 135-145 F Ordering Physician UnknownLaboratory Fqochdm4729-61-62 07:41:00Identifier 71393- 6 Result Time 2018-10-07 07:41:00Unknown Test Item Value Reference Range Comments Unknown (test code = 2823-3) 4.1 mmol/L Unknown 3.5-5.0 F Ordering Physician UnknownLaboratory Dfypsbh0868-64-22 07:41:00Identifier 10080- 6 Result Time 2018-10-07 07:41:00Unknown Test Item Value Reference Range Comments Unknown (test code = 2345-7) 101 mg/dL Unknown 70-100 F Ordering Physician UnknownLaboratory Awwfysl3390-14-11 07:41:00Identifier 69957- 6 Result Time 2018-10-07 07:41:00Unknown Test Item Value Reference Range Comments Unknown (test code = 75366-8) 57.7 Unknown Unknown F Ordering Physician UnknownLaboratory Jcwqbgg5760-84-14 07:41:00Identifier 26358- 6 Result Time 2018-10-07 07:41:00Unknown Test Item Value Reference Range Comments Unknown (test code = NullTestCode) 69.8 Unknown Unknown F Ordering Physician UnknownLaboratory Ggabzso5624-66-71 07:41:00Identifier 07102- 6 Result Time 2018-10-07 07:41:00Unknown Test Item Value Reference Range Comments Unknown (test code = 2160-0) 1.21 mg/dL Unknown 0.67-1.17 F Ordering Physician UnknownLaboratory Gbsardd4322-82-99 07:41:00Identifier 15550- 6 Result Time 2018-10-07 07:41:00Unknown Test Item Value Reference Range Comments Unknown (test code = 2075-0) 101 mmol/L Unknown 101-111 F Ordering Physician UnknownLaboratory Gxkudlq9064-39-37 07:41:00Identifier 89761- 6 Result Time 2018-10-07 07:41:00Unknown Test Item Value Reference Range Comments Unknown (test code = 2028-9) 25 mmol/L Unknown 22-32 F Ordering Physician UnknownLaboratory Aaewyjt7413-36-01 07:41:00Identifier 82084- 6 Result Time 2018-10-07 07:41:00Unknown Test Item Value Reference Range Comments Unknown (test code = 34836-6) 9.1 mg/dL Unknown 8.6-10.3 F Ordering Physician UnknownLaboratory Dejfoci5871-92-01 07:41:00Identifier 91040- 6 Result Time 2018-10-07 07:41:00Unknown Test Item Value Reference Range Comments Unknown (test code = 3094-0) 14 mg/dL Unknown 6-24 F Ordering Physician UnknownLaboratory Ijwdzkx7903-77-34 07:41:00Identifier 76833- 6 Result Time 2018-10-07 07:41:00Unknown Test Item Value Reference Range Comments Unknown (test code = 3097-3) 11.6 Unknown 8-20 F Ordering Physician UnknownLaboratory Hbybtmr5935-54-40 07:41:00Identifier 94245- 6 Result Time 2018-10-07 07:41:00Unknown Test Item Value Reference Range Comments Unknown (test code = 94339-5) 8 mmol/L Unknown 2-11 F Ordering Physician UnknownLaboratory Hfauqrz5145-36-99 22:12:00Identifier 18450- 6 Result Time 2018-10-05 22:12:00Unknown Test Item Value Reference Range Comments Unknown (test code = 43696-3) 355 mg/dL Unknown 70-100 F Ordering Physician UnknownLaboratory Zsrmqjn3005-98-32 04:45:00Identifier 61153- 6 Result Time 2018-10-05 04:45:00Unknown Test Item Value Reference Range Comments Unknown (test code = 1988-5) 23.24 mg/L Unknown 0-8.00 F Ordering Physician UnknownLaboratory Wrkqkpm1850-12-77 21:41:00Identifier 41737- 6 Result Time 2018-10-04 21:41:00Unknown Test Item Value Reference Range Comments Unknown (test code = 2143-6) 6.51 mcg/dL Unknown Unknown F Ordering Physician UnknownLaboratory Cekpyxf9747-57-07 04:33:00Identifier 10380- 6 Result Time 2018-10-04 04:33:00Unknown Test Item Value Reference Range Comments Unknown (test code = 22016-9) 48 pg/mL Unknown Unknown F Ordering Physician UnknownLaboratory Mftzdif2800-46-83 04:33:00Identifier 71995- 6 Result Time 2018-10-04 04:33:00Unknown Test Item Value Reference Range Comments Unknown (test code = 2885-2) 6.7 g/dL Unknown 6.4-8.9 F Ordering Physician UnknownLaboratory Uyhqmkn5133-59-97 04:33:00Identifier 68512- 6 Result Time 2018-10-04 04:33:00Unknown Test Item Value Reference Range Comments Unknown (test code = 1975-2) 0.30 mg/dL Unknown 0.2-1.0 F Ordering Physician UnknownLaboratory Ujewvnn0893-99-20 04:33:00Identifier 74406- 6 Result Time 2018-10-04 04:33:00Unknown Test Item Value Reference Range Comments Unknown (test code = 2777-1) 3.4 mg/dL Unknown 2.5-5.0 F Ordering Physician UnknownLaboratory Fikvocg5059-71-81 04:33:00Identifier 31949- 6 Result Time 2018-10-04 04:33:00Unknown Test Item Value Reference Range Comments Unknown (test code = 52563-7) 2.0 mg/dL Unknown 1.9-2.7 F Ordering Physician UnknownLaboratory Rrrnxda1377-62-17 04:33:00Identifier 76978- 6 Result Time 2018-10-04 04:33:00Unknown Test Item Value Reference Range Comments Unknown (test code = NullTestCode) 3.2 g/dL Unknown 2-4 F Ordering Physician UnknownLaboratory Yulhxan2544-75-34 04:33:00Identifier 26541- 6 Result Time 2018-10-04 04:33:00Unknown Test Item Value Reference Range Comments Unknown (test code = 1920-8) 15 U/L Unknown 13-39 F Ordering Physician UnknownLaboratory Wqjqcfv0229-47-53 04:33:00Identifier 59352- 6 Result Time 2018-10-04 04:33:00Unknown Test Item Value Reference Range Comments Unknown (test code = 6768-6) 72 U/L Unknown 34-104 F Ordering Physician UnknownLaboratory Ejgjueq1425-81-60 04:33:00Identifier 51100- 6 Result Time 2018-10-04 04:33:00Unknown Test Item Value Reference Range Comments Unknown (test code = 1759-0) 1.1 Unknown 1-3 F Ordering Physician UnknownLaboratory Kdmfhhb6706-19-61 04:33:00Identifier 23670- 6 Result Time 2018-10-04 04:33:00Unknown Test Item Value Reference Range Comments Unknown (test code = 50448-8) 3.5 g/dL Unknown 3.2-5.2 F Ordering Physician UnknownLaboratory Pcyafjj3722-95-81 04:33:00Identifier 03906- 6 Result Time 2018-10-04 04:33:00Unknown Test Item Value Reference Range Comments Unknown (test code = 1742-6) 12 U/L Unknown 7-52 F Ordering Physician UnknownLaboratory Zhucdiv7812-66-32 04:33:00Identifier 35467- 6 Result Time 2018-10-04 04:33:00Unknown Test Item Value Reference Range Comments Unknown (test code = 17873-0) 6.5 10^3/uL Unknown 3.5-10.8 F Ordering Physician UnknownLaboratory Buihenk5293-14-52 04:33:00Identifier 77991- 6 Result Time 2018-10-04 04:33:00Unknown Test Item Value Reference Range Comments Unknown (test code = 788-0) 14 % Unknown 10.5-15 F Ordering Physician UnknownLaboratory Obdsbcn4949-13-64 04:33:00Identifier 88367- 6 Result Time 2018-10-04 04:33:00Unknown Test Item Value Reference Range Comments Unknown (test code = 789-8) 3.96 10^6 /uL Unknown 4.18-5.48 F Ordering Physician UnknownLaboratory Ttkmgos8169-49-01 04:33:00Identifier 40036- 6 Result Time 2018-10-04 04:33:00Unknown Test Item Value Reference Range Comments Unknown (test code = 777-3) 223 10^3/uL Unknown 150-450 F Ordering Physician UnknownLaboratory Htveyeb3475-49-12 04:33:00Identifier 04764- 6 Result Time 2018-10-04 04:33:00Unknown Test Item Value Reference Range Comments Unknown (test code = 27261-3) 0 Unknown Unknown F Ordering Physician UnknownLaboratory Jxaebou6211-57-18 04:33:00Identifier 05266- 6 Result Time 2018-10-04 04:33:00Unknown Test Item Value Reference Range Comments Unknown (test code = 771-6) 0 10^3/ul Unknown Unknown F Ordering Physician UnknownLaboratory Iabiuxw3511-96-29 04:33:00Identifier 74003- 6 Result Time 2018-10-04 04:33:00Unknown Test Item Value Reference Range Comments Unknown (test code = 770-8) 62.0 % Unknown Unknown F Ordering Physician UnknownLaboratory Wlhjwte6860-27-74 04:33:00Identifier 31329- 6 Result Time 2018-10-04 04:33:00Unknown Test Item Value Reference Range Comments Unknown (test code = 5905-5) 14.1 % Unknown Unknown F Ordering Physician UnknownLaboratory Ifgnzpi7425-65-69 04:33:00Identifier 01471- 6 Result Time 2018-10-04 04:33:00Unknown Test Item Value Reference Range Comments Unknown (test code = 50867-2) 8.2 fL Unknown 7.4-10.4 F Ordering Physician UnknownLaboratory Rmbmgxi6474-78-39 04:33:00Identifier 08524- 6 Result Time 2018-10-04 04:33:00Unknown Test Item Value Reference Range Comments Unknown (test code = 787-2) 92 fL Unknown 80-94 F Ordering Physician UnknownLaboratory Elegfzk4351-15-57 04:33:00Identifier 93529- 6 Result Time 2018-10-04 04:33:00Unknown Test Item Value Reference Range Comments Unknown (test code = 786-4) 34 g/dL Unknown 31-36 F Ordering Physician UnknownLaboratory Yasdilf8835-58-01 04:33:00Identifier 80256- 6 Result Time 2018-10-04 04:33:00Unknown Test Item Value Reference Range Comments Unknown (test code = 785-6) 31 pg Unknown - F Ordering Physician UnknownLaboratory Xvfchwc3975-42-57 04:33:00Identifier 67825- 6 Result Time 2018-10-04 04:33:00Unknown Test Item Value Reference Range Comments Unknown (test code = 736-9) 21.1 % Unknown Unknown F Ordering Physician UnknownLaboratory Ptnrrbj7853-21-98 04:33:00Identifier 02939- 6 Result Time 2018-10-04 04:33:00Unknown Test Item Value Reference Range Comments Unknown (test code = 718-7) 12.2 g/dL Unknown 14.0-18.0 F Ordering Physician UnknownLaboratory Fyxcndm6443-95-74 04:33:00Identifier 38477- 6 Result Time 2018-10-04 04:33:00Unknown Test Item Value Reference Range Comments Unknown (test code = 4544-3) 36 % Unknown 36-46 F Ordering Physician UnknownLaboratory Njulyhg9062-89-28 04:33:00Identifier 42195- 6 Result Time 2018-10-04 04:33:00Unknown Test Item Value Reference Range Comments Unknown (test code = 713-8) 2.4 % Unknown Unknown F Ordering Physician UnknownLaboratory Dmorzho5178-65-95 04:33:00Identifier 08980- 6 Result Time 2018-10-04 04:33:00Unknown Test Item Value Reference Range Comments Unknown (test code = 706-2) 0.4 % Unknown Unknown F Ordering Physician UnknownLaboratory Hyijpqf4158-42-59 04:33:00Identifier 92320- 6 Result Time 2018-10-04 04:33:00Unknown Test Item Value Reference Range Comments Unknown (test code = 751-8) 4.0 10^3/ul Unknown 1.5-7.7 F Ordering Physician UnknownLaboratory Vtjldri2962-41-72 04:33:00Identifier 89335- 6 Result Time 2018-10-04 04:33:00Unknown Test Item Value Reference Range Comments Unknown (test code = 742-7) 0.9 10^3/ul Unknown 0-0.8 F Ordering Physician UnknownLaboratory Rsmcvnu5306-00-99 04:33:00Identifier 64210- 6 Result Time 2018-10-04 04:33:00Unknown Test Item Value Reference Range Comments Unknown (test code = 731-0) 1.4 10^3/ul Unknown 1.0-4.8 F Ordering Physician UnknownLaboratory Okleewj7381-81-00 04:33:00Identifier 05409- 6 Result Time 2018-10-04 04:33:00Unknown Test Item Value Reference Range Comments Unknown (test code = 711-2) 0.2 10^3/ul Unknown 0-0.6 F Ordering Physician UnknownLaboratory Olylrry6492-91-70 04:33:00Identifier 62845- 6 Result Time 2018-10-04 04:33:00Unknown Test Item Value Reference Range Comments Unknown (test code = 704-7) 0 10^3/ul Unknown 0-0.2 F Ordering Physician UnknownLaboratory Odyujyb5919-17-38 21:14:00Identifier 55492- 6 Result Time 2018-10-03 21:14:00Unknown Test Item Value Reference Range Comments Unknown (test code = 3095-7) 727 mg/dL Unknown Unknown F Ordering Physician UnknownLaboratory Cuvypdw3487-65-49 21:14:00Identifier 85399- 6 Result Time 2018-10-03 21:14:00Unknown Test Item Value Reference Range Comments Unknown (test code = 2955-3) 54 mmol/L Unknown Unknown F Ordering Physician UnknownLaboratory Kznmaqf6327-78-54 21:14:00Identifier 31116- 6 Result Time 2018-10-03 21:14:00Unknown Test Item Value Reference Range Comments Unknown (test code = 2161-8) 88.57 mg/dL Unknown Unknown F Ordering Physician UnknownLaboratory Yyfpwdz5772-16-29 19:37:00Identifier 62493- 6 Result Time 2018-10-03 19:37:00Unknown Test Item Value Reference Range Comments Unknown (test code = 13826-5) 0.03 ng/mL Unknown Unknown F Ordering Physician UnknownLaboratory Dugbbbh8845-92-02 06:49:00Identifier 00170- 6 Result Time 2018-10-03 06:49:00Unknown Test Item Value Reference Range Comments Unknown (test code = NullTestCode) 5.0 Unknown 5-9 F Ordering Physician UnknownLaboratory Lvjttgt5101-42-17 06:49:00Identifier 96897- 6 Result Time 2018-10-03 06:49:00Unknown Test Item Value Reference Range Comments Unknown (test code = 54457-6) 1.011 Unknown 1.010-1.030 F Ordering Physician UnknownLaboratory Akejsek5305-17-51 03:30:00Identifier 18455- 6 Result Time 2018-10-03 03:30:00Unknown Test Item Value Reference Range Comments Unknown (test code = 3016-3) 2.96 mcIU/mL Unknown 0.34-5.60 F Ordering Physician UnknownLaboratory Bkeumin0051-09-00 03:30:00Identifier 11378- 6 Result Time 2018-10-03 03:30:00Unknown Test Item Value Reference Range Comments Unknown (test code = 2524-7) 1.2 mmol/L Unknown 0.5-2.0 F Ordering Physician Unknown
--- OUTSIDE RECORDS SUMMARY | 2019-06-08 15:20 | XMS REPORT ---
:1940 Author Organization [facility] Care Team Providers Name Role Phone Unavailable [...] Result Comments Laboratory Studies 2018-10-08 07:33:00 Identifier [id number] Result Time Unknown 2018-10-08 07:33:00 Test Item Value Reference Range Comments Unknown (test code = 2339-0) 131 mg/dL Unknown 70-100 F Ordering Physician UnknownLaboratory Mbxxtfz2298-05-95 07:41:00Identifier [id number]- 6 Result Time 2018-10-07 07:41:00Unknown Test Item Value Reference Range Comments Unknown (test code = 2951-2) 134 mmol/L Unknown 135-145 F Ordering Physician UnknownLaboratory Faufgyt3969-45-91 07:41:00Identifier [id number]- 6 Result Time 2018-10-07 07:41:00Unknown Test Item Value Reference Range Comments Unknown (test code = 2823-3) 4.1 mmol/L Unknown 3.5-5.0 F Ordering Physician UnknownLaboratory Ygkyvwv1768-25-41 07:41:00Identifier [id number]- 6 Result Time 2018-10-07 07:41:00Unknown Test Item Value Reference Range Comments Unknown (test code = 2345-7) 101 mg/dL Unknown 70-100 F Ordering Physician UnknownLaboratory Ylkjlnl2015-88-72 07:41:00Identifier [id number]- 6 Result Time 2018-10-07 07:41:00Unknown Test Item Value Reference Range Comments Unknown (test code = 99319-7) 57.7 Unknown Unknown F Ordering Physician UnknownLaboratory Djlrspw9779-41-21 07:41:00Identifier [id number]- 6 Result Time 2018-10-07 07:41:00Unknown Test Item Value Reference Range Comments Unknown (test code = NullTestCode) 69.8 Unknown Unknown F Ordering Physician UnknownLaboratory Dwtbqdz9974-83-12 07:41:00Identifier [id number]- 6 Result Time 2018-10-07 07:41:00Unknown Test Item Value Reference Range Comments Unknown (test code = 2160-0) 1.21 mg/dL Unknown 0.67-1.17 F Ordering Physician UnknownLaboratory Sxiaxao4533-31-31 07:41:00Identifier [id number]- 6 Result Time 2018-10-07 07:41:00Unknown Test Item Value Reference Range Comments Unknown (test code = 2075-0) 101 mmol/L Unknown 101-111 F Ordering Physician UnknownLaboratory Qpoyeal0162-79-26 07:41:00Identifier [id number]- 6 Result Time 2018-10-07 07:41:00Unknown Test Item Value Reference Range Comments Unknown (test code = 2028-9) 25 mmol/L Unknown 22-32 F Ordering Physician UnknownLaboratory Grjiyhl4685-54-81 07:41:00Identifier [id number]- 6 Result Time 2018-10-07 07:41:00Unknown Test Item Value Reference Range Comments Unknown (test code = 30107-1) 9.1 mg/dL Unknown 8.6-10.3 F Ordering Physician UnknownLaboratory Xiugkcx8238-25-53 07:41:00Identifier [id number]- 6 Result Time 2018-10-07 07:41:00Unknown Test Item Value Reference Range Comments Unknown (test code = 3094-0) 14 mg/dL Unknown 6-24 F Ordering Physician UnknownLaboratory Uvtfqfo1409-78-87 07:41:00Identifier [id number]- 6 Result Time 2018-10-07 07:41:00Unknown Test Item Value Reference Range Comments Unknown (test code = 3097-3) 11.6 Unknown 8-20 F Ordering Physician UnknownLaboratory Geipyea2937-76-14 07:41:00Identifier [id number]- 6 Result Time 2018-10-07 07:41:00Unknown Test Item Value Reference Range Comments Unknown (test code = 49403-1) 8 mmol/L Unknown 2-11 F Ordering Physician UnknownLaboratory Jxondbb0446-60-19 22:12:00Identifier [id number]- 6 Result Time 2018-10-05 22:12:00Unknown Test Item Value Reference Range Comments Unknown (test code = 37273-1) 355 mg/dL Unknown 70-100 F Ordering Physician UnknownLaboratory Jszzahm0626-78-40 04:45:00Identifier [id number]- 6 Result Time 2018-10-05 04:45:00Unknown Test Item Value Reference Range Comments Unknown (test code = 1988-5) 23.24 mg/L Unknown 0-8.00 F Ordering Physician UnknownLaboratory Onskgca9882-29-71 21:41:00Identifier [id number]- 6 Result Time 2018-10-04 21:41:00Unknown Test Item Value Reference Range Comments Unknown (test code = 2143-6) 6.51 mcg/dL Unknown Unknown F Ordering Physician UnknownLaboratory Zvnhlaa9141-70-96 04:33:00Identifier [id number]- 6 Result Time 2018-10-04 04:33:00Unknown Test Item Value Reference Range Comments Unknown (test code = 45970-7) 48 pg/mL Unknown Unknown F Ordering Physician UnknownLaboratory Htjssdc6972-49-26 04:33:00Identifier [id number]- 6 Result Time 2018-10-04 04:33:00Unknown Test Item Value Reference Range Comments Unknown (test code = 2885-2) 6.7 g/dL Unknown 6.4-8.9 F Ordering Physician UnknownLaboratory Etjwjmn7577-49-40 04:33:00Identifier [id number]- 6 Result Time 2018-10-04 04:33:00Unknown Test Item Value Reference Range Comments Unknown (test code = 1975-2) 0.30 mg/dL Unknown 0.2-1.0 F Ordering Physician UnknownLaboratory Lwcvhjl9597-24-96 04:33:00Identifier [id number]- 6 Result Time 2018-10-04 04:33:00Unknown Test Item Value Reference Range Comments Unknown (test code = 2777-1) 3.4 mg/dL Unknown 2.5-5.0 F Ordering Physician UnknownLaboratory Rernthu6938-15-80 04:33:00Identifier [id number]- 6 Result Time 2018-10-04 04:33:00Unknown Test Item Value Reference Range Comments Unknown (test code = 99803-0) 2.0 mg/dL Unknown 1.9-2.7 F Ordering Physician UnknownLaboratory Ugrmqxx7505-29-98 04:33:00Identifier 58323- 6 Result Time 2018-10-04 04:33:00Unknown Test Item Value Reference Range Comments Unknown (test code = NullTestCode) 3.2 g/dL Unknown 2-4 F Ordering Physician UnknownLaboratory Hhfnqvu6636-87-87 04:33:00Identifier 45902- 6 Result Time 2018-10-04 04:33:00Unknown Test Item Value Reference Range Comments Unknown (test code = 1920-8) 15 U/L Unknown 13-39 F Ordering Physician UnknownLaboratory Uajxmnc2619-79-27 04:33:00Identifier 93382- 6 Result Time 2018-10-04 04:33:00Unknown Test Item Value Reference Range Comments Unknown (test code = 6768-6) 72 U/L Unknown 34-104 F Ordering Physician UnknownLaboratory Vmldywj1098-86-08 04:33:00Identifier [id number]- 6 Result Time 2018-10-04 04:33:00Unknown Test Item Value Reference Range Comments Unknown (test code = 1759-0) 1.1 Unknown 1-3 F Ordering Physician UnknownLaboratory Uaqrmfs1436-99-30 04:33:00Identifier 45714- 6 Result Time 2018-10-04 04:33:00Unknown Test Item Value Reference Range Comments Unknown (test code = 13055-1) 3.5 g/dL Unknown 3.2-5.2 F Ordering Physician UnknownLaboratory Eafbiso9460-14-91 04:33:00Identifier [id number]- 6 Result Time 2018-10-04 04:33:00Unknown Test Item Value Reference Range Comments Unknown (test code = 1742-6) 12 U/L Unknown 7-52 F Ordering Physician UnknownLaboratory Pntczjx2867-39-14 04:33:00Identifier [id number]- 6 Result Time 2018-10-04 04:33:00Unknown Test Item Value Reference Range Comments Unknown (test code = 12167-0) 6.5 10^3/uL Unknown 3.5-10.8 F Ordering Physician UnknownLaboratory Zawwvlx7683-01-20 04:33:00Identifier 74037- 6 Result Time 2018-10-04 04:33:00Unknown Test Item Value Reference Range Comments Unknown (test code = 788-0) 14 % Unknown 10.5-15 F Ordering Physician UnknownLaboratory Dygscra1230-94-53 04:33:00Identifier [id number]- 6 Result Time 2018-10-04 04:33:00Unknown Test Item Value Reference Range Comments Unknown (test code = 789-8) 3.96 10^6 /uL Unknown 4.18-5.48 F Ordering Physician UnknownLaboratory Mcsivkw2943-56-51 04:33:00Identifier [id number]- 6 Result Time 2018-10-04 04:33:00Unknown Test Item Value Reference Range Comments Unknown (test code = 777-3) 223 10^3/uL Unknown 150-450 F Ordering Physician UnknownLaboratory Asfqpma4557-80-51 04:33:00Identifier 22562- 6 Result Time 2018-10-04 04:33:00Unknown Test Item Value Reference Range Comments Unknown (test code = 33493-6) 0 Unknown Unknown F Ordering Physician UnknownLaboratory Punakxb3138-22-70 04:33:00Identifier 87113- 6 Result Time 2018-10-04 04:33:00Unknown Test Item Value Reference Range Comments Unknown (test code = 771-6) 0 10^3/ul Unknown Unknown F Ordering Physician UnknownLaboratory Nvilsbw1367-90-97 04:33:00Identifier 50981- 6 Result Time 2018-10-04 04:33:00Unknown Test Item Value Reference Range Comments Unknown (test code = 770-8) 62.0 % Unknown Unknown F Ordering Physician UnknownLaboratory Rbeuisd7628-20-28 04:33:00Identifier [id number]- 6 Result Time 2018-10-04 04:33:00Unknown Test Item Value Reference Range Comments Unknown (test code = 5905-5) 14.1 % Unknown Unknown F Ordering Physician UnknownLaboratory Phrsjgy2049-06-31 04:33:00Identifier [id number]- 6 Result Time 2018-10-04 04:33:00Unknown Test Item Value Reference Range Comments Unknown (test code = 52924-8) 8.2 fL Unknown 7.4-10.4 F Ordering Physician UnknownLaboratory Htsqsvs7275-21-02 04:33:00Identifier 05287- 6 Result Time 2018-10-04 04:33:00Unknown Test Item Value Reference Range Comments Unknown (test code = 787-2) 92 fL Unknown 80-94 F Ordering Physician UnknownLaboratory Pfauerh0011-06-25 04:33:00Identifier 20787- 6 Result Time 2018-10-04 04:33:00Unknown Test Item Value Reference Range Comments Unknown (test code = 786-4) 34 g/dL Unknown 31-36 F Ordering Physician UnknownLaboratory Gveseps0710-40-52 04:33:00Identifier [id number]- 6 Result Time 2018-10-04 04:33:00Unknown Test Item Value Reference Range Comments Unknown (test code = 785-6) 31 pg Unknown - F Ordering Physician UnknownLaboratory Aeroluy0067-44-34 04:33:00Identifier [id number]- 6 Result Time 2018-10-04 04:33:00Unknown Test Item Value Reference Range Comments Unknown (test code = 736-9) 21.1 % Unknown Unknown F Ordering Physician UnknownLaboratory Nnnpiay4249-36-40 04:33:00Identifier [id number]- 6 Result Time 2018-10-04 04:33:00Unknown Test Item Value Reference Range Comments Unknown (test code = 718-7) 12.2 g/dL Unknown 14.0-18.0 F Ordering Physician UnknownLaboratory Dhpupvk7122-39-39 04:33:00Identifier 16605- 6 Result Time 2018-10-04 04:33:00Unknown Test Item Value Reference Range Comments Unknown (test code = 4544-3) 36 % Unknown 36-46 F Ordering Physician UnknownLaboratory Cfqshxj6829-90-58 04:33:00Identifier 87605- 6 Result Time 2018-10-04 04:33:00Unknown Test Item Value Reference Range Comments Unknown (test code = 713-8) 2.4 % Unknown Unknown F Ordering Physician UnknownLaboratory Lnqpxqe9151-15-53 04:33:00Identifier 87721- 6 Result Time 2018-10-04 04:33:00Unknown Test Item Value Reference Range Comments Unknown (test code = 706-2) 0.4 % Unknown Unknown F Ordering Physician UnknownLaboratory Zznktlc2370-06-95 04:33:00Identifier 88906- 6 Result Time 2018-10-04 04:33:00Unknown Test Item Value Reference Range Comments Unknown (test code = 751-8) 4.0 10^3/ul Unknown 1.5-7.7 F Ordering Physician UnknownLaboratory Zrstume6641-05-03 04:33:00Identifier 73565- 6 Result Time 2018-10-04 04:33:00Unknown Test Item Value Reference Range Comments Unknown (test code = 742-7) 0.9 10^3/ul Unknown 0-0.8 F Ordering Physician UnknownLaboratory Dngbhqm5583-49-34 04:33:00Identifier [id number]- 6 Result Time 2018-10-04 04:33:00Unknown Test Item Value Reference Range Comments Unknown (test code = 731-0) 1.4 10^3/ul Unknown 1.0-4.8 F Ordering Physician UnknownLaboratory Aglmubs3610-13-75 04:33:00Identifier [id number]- 6 Result Time 2018-10-04 04:33:00Unknown Test Item Value Reference Range Comments Unknown (test code = 711-2) 0.2 10^3/ul Unknown 0-0.6 F Ordering Physician UnknownLaboratory Dprkxly0431-90-49 04:33:00Identifier [id number]- 6 Result Time 2018-10-04 04:33:00Unknown Test Item Value Reference Range Comments Unknown (test code = 704-7) 0 10^3/ul Unknown 0-0.2 F Ordering Physician UnknownLaboratory Hgzjwht3771-37-33 21:14:00Identifier 20757- 6 Result Time 2018-10-03 21:14:00Unknown Test Item Value Reference Range Comments Unknown (test code = 3095-7) 727 mg/dL Unknown Unknown F Ordering Physician UnknownLaboratory Pjwppjt9127-72-75 21:14:00Identifier [id number]- 6 Result Time 2018-10-03 21:14:00Unknown Test Item Value Reference Range Comments Unknown (test code = 2955-3) 54 mmol/L Unknown Unknown F Ordering Physician UnknownLaboratory Obchhuy9890-25-53 21:14:00Identifier 29549- 6 Result Time 2018-10-03 21:14:00Unknown Test Item Value Reference Range Comments Unknown (test code = 2161-8) 88.57 mg/dL Unknown Unknown F Ordering Physician UnknownLaboratory Ksotffg9000-91-83 19:37:00Identifier 90662- 6 Result Time 2018-10-03 19:37:00Unknown Test Item Value Reference Range Comments Unknown (test code = 91952-6) 0.03 ng/mL Unknown Unknown F Ordering Physician UnknownLaboratory Dyssjkw4576-80-77 06:49:00Identifier [id number]- 6 Result Time 2018-10-03 06:49:00Unknown Test Item Value Reference Range Comments Unknown (test code = NullTestCode) 5.0 Unknown 5-9 F Ordering Physician UnknownLaboratory Zgdodas1726-44-46 06:49:00Identifier [id number]- 6 Result Time 2018-10-03 06:49:00Unknown Test Item Value Reference Range Comments Unknown (test code = 88970-3) 1.011 Unknown 1.010-1.030 F Ordering Physician UnknownLaboratory Vfptjdy3191-63-12 03:30:00Identifier [id number]- 6 Result Time 2018-10-03 03:30:00Unknown Test Item Value Reference Range Comments Unknown (test code = 3016-3) 2.96 mcIU/mL Unknown 0.34-5.60 F Ordering Physician UnknownLaboratory Faczwbj2789-35-03 03:30:00Identifier [id number]- 6 Result Time 2018-10-03 03:30:00Unknown Test Item Value Reference Range Comments Unknown (test code = 2524-7) 1.2 mmol/L Unknown 0.5-2.0 F Ordering Physician Unknown
--- OUTSIDE RECORDS SUMMARY | 2019-06-08 15:20 | XMS REPORT ---
:1940 Author Organization [facility] Care Team Providers Name Role Phone Unavailable Unavailable Unavailable Problems Condition Condition Condition Status Onset Resolution Last Treating Comments Name Details Category Date Date Treatment Clinician Date Pain frequent Pain Mgmt Resolve 2018-072019-05-24 Марина pain d 0-08 14:15:00 [place] 10:15: [id number] 00 Respiratory dyspnea Respirator Active 2018-07 Марина present y 0-08 [place] 10:15: [id number] 00 Respiratory CPAP Respirator Active 2018-07 Марина treatments y 0-08 [place] in home 10:15: [id number] 00 Endo/Sundar insulin Endo/Sundar Active 2018-07 Марина admn 0-08 [place] dependence 10:15: [id number] 00 Endo/Sundar knowledge/s Endo/Sundar Active 2018-07 Марина kill 0-08 [place] deficit: pt 10:15: [id number] 00 Endo/Sundar diabetic Endo/Sudnar Active 2018-07 Марина foot care 0-08 [place] 10:15: [id number] 00 Endo/Sundar anti-coagul Endo/Sundar Active 2018-07 Марина ation 0-08 [place] therapy 10:15: [id number] 00 Sensory impaired Sensory Active 2018-07 Марина hearing 0-08 [place] 10:15: [id number] 00 Integument skin Integument Active 2018-07 Марина integrity 0-08 [place] risk 10:15: [id number] 00 Nutrition nutritional Nutrition Active 2018-07 Марина restriction 0-08 [place] s 10:15: [id number] 00 Elimination urinary Eliminatio Resolve 2018-072019-05-21 Марина incontinenc n d 0-08 09:25:00 Anna Marie e 10:15: [id number] 00 Neuro confusion Neuro/Emot Active 2018-07 Марина present ion 0-08 [place] 10:15: [id number] 00 Neuro impaired Neuro/Emot Active 2018- Марина decision-ma ion 0-08 [place] sarah 10:15: [id number] 00 Neuro memory Neuro/Emot Active 2018- Марина deficit ion 0-08 [place] needing 10:15: [id number] supervision 00 Activity ADL Activity Active 2018- Марина assistance 0-08 [place] required 10:15: [id number] 00 Activity self-care Activity Active 2018-07 Марина deficit 0-08 [place] 10:15: [id number] 00 Safety sanitation Safety Active 2018- Марина hazards 0-08 [place] present 10:15: [id number] 00 Safety cannot be Safety Active 2018-07 Марина left alone 0-08 [place] 10:15: [id number] 00 Safety knowledge/s Safety Active 2018-07 Марина kill 0-08 [place] deficit: pt 10:15: [id number] 00 Safety knowledge/s Safety Active 2018-07 Марина kill 0-08 [place] deficit: cg 10:15: [id number] 00 Safety fall risk Safety Active 2018- Марина factor 0-08 [place] present 10:15: [id number] 00 Safety risk for Safety Active 2018- Марина hospitaliza 0-08 [place] tion 10:15: [id number] 00 Medication oral med Meds Resolve 2018-072019-05-21 Марина assistance d 0-08 09:25:00 Anna Marie required 10:15: [id number] 00 Medication injectable Meds Resolve 2018-072019-05-21 Марина med d 0-08 09:25:00 [place] assistance 10:15: [id number] required 00 Medication knowledge/s Meds Active 2018-07 Марина kill 0-08 [place] deficit: pt 10:15: [id number] 00 Medication potential Meds Active 2018- Марина clinically 0-08 Anna Marie significant 10:15: [id number] medication 00 issue Musculoskel transfer Musculoske Active 2018- Марина etal assistance letal 0-08 [place] required 10:15: [id number] 00 Musculoskel requires Musculoske Active 2018- Марина etal human letal 0-08 [place] assist to 10:15: [id number] leave home 00 Elimination constipatio Eliminatio Resolve 2018-072019-05-21 Esther n n d 0-11 09:25:00 [place]rier RN 20:00: 00 OT: Self self-care OT: Active 2018-07 [place] Care deficit Self-Care 0-22 [place] 13:30: [id number] 00 Integument knowledge/s Integument Active 2018-07 Esther [...] Active 2018-07 Doreen blancas 08-01 [place] 10:46: [id number] 00 Allergies, Adverse Reactions, Alerts Allergy Allergy [...]
--- OUTSIDE RECORDS SUMMARY | 2019-06-08 15:20 | XMS REPORT ---
:1940 Author Organization [facility] Care Team Providers Name Role Phone Unavailable Unavailable Unavailable Problems Condition Condition Condition Status Onset Resolution Last Treating Comments Name Details Category Date Date Treatment Clinician Date Pain frequent Pain Mgmt Resolve 2018-072019-05-24 Марина pain d 0-08 14:15:00 [place] 10:15: [id number] 00 Respiratory dyspnea Respirator Active 2018-07 Марина present y 0-08 [place] 10:15: [id number] 00 Respiratory CPAP Respirator Active 2018-07 Марина treatments y 0-08 [place] in home 10:15: [id number] 00 Endo/Sundar insulin Endo/Sundar Active 2018-07 Марина admn 0-08 [place] dependence 10:15: [id number] 00 Endo/Sundar knowledge/s Endo/Sundar Active 2018-07 Марина kill 0-08 [place] deficit: pt 10:15: [id number] 00 Endo/Sundar diabetic Endo/Sundar Active 2018-07 Марина foot care 0-08 [place] 10:15: [id number] 00 Endo/Sundar anti-coagul Endo/Sundar Active 2018-07 Марина ation 0-08 [place] therapy 10:15: [id number] 00 Sensory impaired Sensory Active 2018-07 Марина hearing 0-08 [place] 10:15: [id number] 00 Integument skin Integument Active 2018-07 Марина integrity 0-08 [place] risk 10:15: [id number] 00 Nutrition nutritional Nutrition Active 2018-07 Марина restriction 0-08 [place] s 10:15: [id number] 00 Elimination urinary Eliminatio Resolve 2018-072019-05-21 Марина incontinenc n d 0-08 09:25:00 Anna Marie e 10:15: [id number] 00 Neuro confusion Neuro/Emot Active 2018-07 Марина present ion 0-08 [place] 10:15: [id number] 00 Neuro impaired Neuro/Emot Active 2018- Марина decision-ma ion 0-08 [place] sarah 10:15: [id number] 00 Neuro memory Neuro/Emot Active 2018- Марина deficit ion 0-08 [place] needing 10:15: [id number] supervision 00 Activity ADL Activity Active 2018- Марина assistance 0-08 [place] required 10:15: [id number] 00 Activity self-care Activity Active 2018-07 Марина deficit 0-08 [place] 10:15: [id number] 00 Safety sanitation Safety Active 2018- Марина hazards 0-08 [place] present 10:15: [id number] 00 Safety cannot be Safety Active 2018-07 Марина left alone 0-08 [place] 10:15: [id number] 00 Safety knowledge/s Safety Active 2018-07 Марина kill 0-08 [place] deficit: pt 10:15: [id number] 00 Safety knowledge/s Safety Active 2018-07 Марина kill 0-08 [place] deficit: cg 10:15: [id number] 00 Safety fall risk Safety Active 2018- Марина factor 0-08 [place] present 10:15: [id number] 00 Safety risk for Safety Active 2018- Марина hospitaliza 0-08 [place] tion 10:15: [id number] 00 Medication oral med Meds Resolve 2018-072019-05-21 Марина assistance d 0-08 09:25:00 Anna Marie required 10:15: [id number] 00 Medication injectable Meds Resolve 2018-072019-05-21 Марина med d 0-08 09:25:00 [place] assistance 10:15: [id number] required 00 Medication knowledge/s Meds Active 2018-07 Марина kill 0-08 [place] deficit: pt 10:15: [id number] 00 Medication potential Meds Active 2018- Марина clinically 0-08 [place] Marie significant 10:15: [id number] medication 00 issue Musculoskel transfer Musculoske Active 2018- Марина etal assistance letal 0-08 [place] required 10:15: [id number] 00 Musculoskel requires Musculoske Active 2018- Марина etal human letal 0-08 [place] assist to 10:15: [id number] leave home 00 Elimination constipatio Eliminatio Resolve 2018-072019-05-21 Esther n n d 0-11 09:25:00 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
--- OUTSIDE RECORDS SUMMARY | 2019-06-08 15:20 | XMS REPORT ---
:1940 Author Organization [facility] Care Team Providers Name Role Phone Unavailable [...] Result Comments Laboratory Studies 2018-10-08 07:33:00 Identifier [id number] Result Time Unknown 2018-10-08 07:33:00 Test Item Value Reference Range Comments Unknown (test code = 2339-0) 131 mg/dL Unknown 70-100 F Ordering Physician UnknownLaboratory Nmcmpqg2823-97-92 07:41:00Identifier 10646- 6 Result Time 2018-10-07 07:41:00Unknown Test Item Value Reference Range Comments Unknown (test code = 2951-2) 134 mmol/L Unknown 135-145 F Ordering Physician UnknownLaboratory Xpeqkyp6967-36-47 07:41:00Identifier 73894- 6 Result Time 2018-10-07 07:41:00Unknown Test Item Value Reference Range Comments Unknown (test code = 2823-3) 4.1 mmol/L Unknown 3.5-5.0 F Ordering Physician UnknownLaboratory Doyflnk4488-37-52 07:41:00Identifier 86898- 6 Result Time 2018-10-07 07:41:00Unknown Test Item Value Reference Range Comments Unknown (test code = 2345-7) 101 mg/dL Unknown 70-100 F Ordering Physician UnknownLaboratory Agdhacy2744-12-28 07:41:00Identifier 03306- 6 Result Time 2018-10-07 07:41:00Unknown Test Item Value Reference Range Comments Unknown (test code = 50348-0) 57.7 Unknown Unknown F Ordering Physician UnknownLaboratory Wcrgaxk6444-28-68 07:41:00Identifier 25520- 6 Result Time 2018-10-07 07:41:00Unknown Test Item Value Reference Range Comments Unknown (test code = NullTestCode) 69.8 Unknown Unknown F Ordering Physician UnknownLaboratory Mzysbht6153-71-16 07:41:00Identifier 93882- 6 Result Time 2018-10-07 07:41:00Unknown Test Item Value Reference Range Comments Unknown (test code = 2160-0) 1.21 mg/dL Unknown 0.67-1.17 F Ordering Physician UnknownLaboratory Xiamcpk6951-31-23 07:41:00Identifier 19547- 6 Result Time 2018-10-07 07:41:00Unknown Test Item Value Reference Range Comments Unknown (test code = 2075-0) 101 mmol/L Unknown 101-111 F Ordering Physician UnknownLaboratory Bufoxsc1270-85-02 07:41:00Identifier 29485- 6 Result Time 2018-10-07 07:41:00Unknown Test Item Value Reference Range Comments Unknown (test code = 2028-9) 25 mmol/L Unknown 22-32 F Ordering Physician UnknownLaboratory Vhszixg8438-56-48 07:41:00Identifier 14294- 6 Result Time 2018-10-07 07:41:00Unknown Test Item Value Reference Range Comments Unknown (test code = 48738-3) 9.1 mg/dL Unknown 8.6-10.3 F Ordering Physician UnknownLaboratory Fnleobr5746-88-05 07:41:00Identifier 93393- 6 Result Time 2018-10-07 07:41:00Unknown Test Item Value Reference Range Comments Unknown (test code = 3094-0) 14 mg/dL Unknown 6-24 F Ordering Physician UnknownLaboratory Ipgtcfi7281-76-81 07:41:00Identifier 68870- 6 Result Time 2018-10-07 07:41:00Unknown Test Item Value Reference Range Comments Unknown (test code = 3097-3) 11.6 Unknown 8-20 F Ordering Physician UnknownLaboratory Eberrmd9557-99-43 07:41:00Identifier 70577- 6 Result Time 2018-10-07 07:41:00Unknown Test Item Value Reference Range Comments Unknown (test code = 64700-5) 8 mmol/L Unknown 2-11 F Ordering Physician UnknownLaboratory Khhocvy3929-93-50 22:12:00Identifier 50641- 6 Result Time 2018-10-05 22:12:00Unknown Test Item Value Reference Range Comments Unknown (test code = 03230-1) 355 mg/dL Unknown 70-100 F Ordering Physician UnknownLaboratory Etuxkfh3101-57-97 04:45:00Identifier 44956- 6 Result Time 2018-10-05 04:45:00Unknown Test Item Value Reference Range Comments Unknown (test code = 1988-5) 23.24 mg/L Unknown 0-8.00 F Ordering Physician UnknownLaboratory Ekqdofd5579-08-23 21:41:00Identifier 61469- 6 Result Time 2018-10-04 21:41:00Unknown Test Item Value Reference Range Comments Unknown (test code = 2143-6) 6.51 mcg/dL Unknown Unknown F Ordering Physician UnknownLaboratory Qghnwxa1842-45-10 04:33:00Identifier 06442- 6 Result Time 2018-10-04 04:33:00Unknown Test Item Value Reference Range Comments Unknown (test code = 00031-3) 48 pg/mL Unknown Unknown F Ordering Physician UnknownLaboratory Knwakcy4775-38-18 04:33:00Identifier 01337- 6 Result Time 2018-10-04 04:33:00Unknown Test Item Value Reference Range Comments Unknown (test code = 2885-2) 6.7 g/dL Unknown 6.4-8.9 F Ordering Physician UnknownLaboratory Sjydswa2251-80-60 04:33:00Identifier 34970- 6 Result Time 2018-10-04 04:33:00Unknown Test Item Value Reference Range Comments Unknown (test code = 1975-2) 0.30 mg/dL Unknown 0.2-1.0 F Ordering Physician UnknownLaboratory Wxfcqwk0004-66-11 04:33:00Identifier 12778- 6 Result Time 2018-10-04 04:33:00Unknown Test Item Value Reference Range Comments Unknown (test code = 2777-1) 3.4 mg/dL Unknown 2.5-5.0 F Ordering Physician UnknownLaboratory Vwyaeux8971-69-78 04:33:00Identifier 30337- 6 Result Time 2018-10-04 04:33:00Unknown Test Item Value Reference Range Comments Unknown (test code = 95409-4) 2.0 mg/dL Unknown 1.9-2.7 F Ordering Physician UnknownLaboratory Mtxpkyx2433-98-92 04:33:00Identifier 27638- 6 Result Time 2018-10-04 04:33:00Unknown Test Item Value Reference Range Comments Unknown (test code = NullTestCode) 3.2 g/dL Unknown 2-4 F Ordering Physician UnknownLaboratory Ndlchjv8180-11-17 04:33:00Identifier 50263- 6 Result Time 2018-10-04 04:33:00Unknown Test Item Value Reference Range Comments Unknown (test code = 1920-8) 15 U/L Unknown 13-39 F Ordering Physician UnknownLaboratory Ctptwao1213-17-81 04:33:00Identifier 47874- 6 Result Time 2018-10-04 04:33:00Unknown Test Item Value Reference Range Comments Unknown (test code = 6768-6) 72 U/L Unknown 34-104 F Ordering Physician UnknownLaboratory Dichlst8912-45-06 04:33:00Identifier 33315- 6 Result Time 2018-10-04 04:33:00Unknown Test Item Value Reference Range Comments Unknown (test code = 1759-0) 1.1 Unknown 1-3 F Ordering Physician UnknownLaboratory Xcyozia6648-81-25 04:33:00Identifier 09401- 6 Result Time 2018-10-04 04:33:00Unknown Test Item Value Reference Range Comments Unknown (test code = 36440-2) 3.5 g/dL Unknown 3.2-5.2 F Ordering Physician UnknownLaboratory Geuvmym1345-69-63 04:33:00Identifier 37128- 6 Result Time 2018-10-04 04:33:00Unknown Test Item Value Reference Range Comments Unknown (test code = 1742-6) 12 U/L Unknown 7-52 F Ordering Physician UnknownLaboratory Zzcsrqs7215-27-54 04:33:00Identifier 22158- 6 Result Time 2018-10-04 04:33:00Unknown Test Item Value Reference Range Comments Unknown (test code = 80199-8) 6.5 10^3/uL Unknown 3.5-10.8 F Ordering Physician UnknownLaboratory Ietzyaq7804-63-32 04:33:00Identifier 85601- 6 Result Time 2018-10-04 04:33:00Unknown Test Item Value Reference Range Comments Unknown (test code = 788-0) 14 % Unknown 10.5-15 F Ordering Physician UnknownLaboratory Ayhhfdh4037-28-71 04:33:00Identifier 40490- 6 Result Time 2018-10-04 04:33:00Unknown Test Item Value Reference Range Comments Unknown (test code = 789-8) 3.96 10^6 /uL Unknown 4.18-5.48 F Ordering Physician UnknownLaboratory Ucoqotu4389-64-23 04:33:00Identifier 75659- 6 Result Time 2018-10-04 04:33:00Unknown Test Item Value Reference Range Comments Unknown (test code = 777-3) 223 10^3/uL Unknown 150-450 F Ordering Physician UnknownLaboratory Ohoigix4891-53-43 04:33:00Identifier 50044- 6 Result Time 2018-10-04 04:33:00Unknown Test Item Value Reference Range Comments Unknown (test code = 23102-4) 0 Unknown Unknown F Ordering Physician UnknownLaboratory Ykinfrc6633-49-91 04:33:00Identifier 68162- 6 Result Time 2018-10-04 04:33:00Unknown Test Item Value Reference Range Comments Unknown (test code = 771-6) 0 10^3/ul Unknown Unknown F Ordering Physician UnknownLaboratory Mlttmoj3496-03-87 04:33:00Identifier 20962- 6 Result Time 2018-10-04 04:33:00Unknown Test Item Value Reference Range Comments Unknown (test code = 770-8) 62.0 % Unknown Unknown F Ordering Physician UnknownLaboratory Tgewhyx1635-12-87 04:33:00Identifier 91973- 6 Result Time 2018-10-04 04:33:00Unknown Test Item Value Reference Range Comments Unknown (test code = 5905-5) 14.1 % Unknown Unknown F Ordering Physician UnknownLaboratory Gznypah9034-11-58 04:33:00Identifier 71518- 6 Result Time 2018-10-04 04:33:00Unknown Test Item Value Reference Range Comments Unknown (test code = 54623-4) 8.2 fL Unknown 7.4-10.4 F Ordering Physician UnknownLaboratory Qfcipjm6012-29-44 04:33:00Identifier 96263- 6 Result Time 2018-10-04 04:33:00Unknown Test Item Value Reference Range Comments Unknown (test code = 787-2) 92 fL Unknown 80-94 F Ordering Physician UnknownLaboratory Kqplejg8357-66-79 04:33:00Identifier 80227- 6 Result Time 2018-10-04 04:33:00Unknown Test Item Value Reference Range Comments Unknown (test code = 786-4) 34 g/dL Unknown 31-36 F Ordering Physician UnknownLaboratory Rbiifka7601-58-16 04:33:00Identifier 03493- 6 Result Time 2018-10-04 04:33:00Unknown Test Item Value Reference Range Comments Unknown (test code = 785-6) 31 pg Unknown - F Ordering Physician UnknownLaboratory Nvszrdl6375-07-48 04:33:00Identifier 57579- 6 Result Time 2018-10-04 04:33:00Unknown Test Item Value Reference Range Comments Unknown (test code = 736-9) 21.1 % Unknown Unknown F Ordering Physician UnknownLaboratory Lghyiio6880-64-01 04:33:00Identifier 15221- 6 Result Time 2018-10-04 04:33:00Unknown Test Item Value Reference Range Comments Unknown (test code = 718-7) 12.2 g/dL Unknown 14.0-18.0 F Ordering Physician UnknownLaboratory Sftyzeu5120-58-69 04:33:00Identifier 42341- 6 Result Time 2018-10-04 04:33:00Unknown Test Item Value Reference Range Comments Unknown (test code = 4544-3) 36 % Unknown 36-46 F Ordering Physician UnknownLaboratory Vtxeast1771-11-76 04:33:00Identifier 68573- 6 Result Time 2018-10-04 04:33:00Unknown Test Item Value Reference Range Comments Unknown (test code = 713-8) 2.4 % Unknown Unknown F Ordering Physician UnknownLaboratory Nvetwtk8014-55-09 04:33:00Identifier 72152- 6 Result Time 2018-10-04 04:33:00Unknown Test Item Value Reference Range Comments Unknown (test code = 706-2) 0.4 % Unknown Unknown F Ordering Physician UnknownLaboratory Mxzmmdl1782-28-61 04:33:00Identifier 46758- 6 Result Time 2018-10-04 04:33:00Unknown Test Item Value Reference Range Comments Unknown (test code = 751-8) 4.0 10^3/ul Unknown 1.5-7.7 F Ordering Physician UnknownLaboratory Bpwkdyd7107-63-67 04:33:00Identifier 56938- 6 Result Time 2018-10-04 04:33:00Unknown Test Item Value Reference Range Comments Unknown (test code = 742-7) 0.9 10^3/ul Unknown 0-0.8 F Ordering Physician UnknownLaboratory Qwknnxi3538-88-44 04:33:00Identifier 58429- 6 Result Time 2018-10-04 04:33:00Unknown Test Item Value Reference Range Comments Unknown (test code = 731-0) 1.4 10^3/ul Unknown 1.0-4.8 F Ordering Physician UnknownLaboratory Lxumoeu7066-60-09 04:33:00Identifier 47995- 6 Result Time 2018-10-04 04:33:00Unknown Test Item Value Reference Range Comments Unknown (test code = 711-2) 0.2 10^3/ul Unknown 0-0.6 F Ordering Physician UnknownLaboratory Wjbfopz1704-09-43 04:33:00Identifier 26822- 6 Result Time 2018-10-04 04:33:00Unknown Test Item Value Reference Range Comments Unknown (test code = 704-7) 0 10^3/ul Unknown 0-0.2 F Ordering Physician UnknownLaboratory Wgxopux2113-95-84 21:14:00Identifier 49181- 6 Result Time 2018-10-03 21:14:00Unknown Test Item Value Reference Range Comments Unknown (test code = 3095-7) 727 mg/dL Unknown Unknown F Ordering Physician UnknownLaboratory Oswsqmz8404-17-23 21:14:00Identifier 31590- 6 Result Time 2018-10-03 21:14:00Unknown Test Item Value Reference Range Comments Unknown (test code = 2955-3) 54 mmol/L Unknown Unknown F Ordering Physician UnknownLaboratory Tboqypd6932-41-47 21:14:00Identifier 32877- 6 Result Time 2018-10-03 21:14:00Unknown Test Item Value Reference Range Comments Unknown (test code = 2161-8) 88.57 mg/dL Unknown Unknown F Ordering Physician UnknownLaboratory Qohrmls4227-70-16 19:37:00Identifier 81670- 6 Result Time 2018-10-03 19:37:00Unknown Test Item Value Reference Range Comments Unknown (test code = 18414-9) 0.03 ng/mL Unknown Unknown F Ordering Physician UnknownLaboratory Hazhryd9774-54-19 06:49:00Identifier 59325- 6 Result Time 2018-10-03 06:49:00Unknown Test Item Value Reference Range Comments Unknown (test code = NullTestCode) 5.0 Unknown 5-9 F Ordering Physician UnknownLaboratory Ycfyvwy0816-85-25 06:49:00Identifier 65136- 6 Result Time 2018-10-03 06:49:00Unknown Test Item Value Reference Range Comments Unknown (test code = 37671-5) 1.011 Unknown 1.010-1.030 F Ordering Physician UnknownLaboratory Gpsikln0425-68-41 03:30:00Identifier 16419- 6 Result Time 2018-10-03 03:30:00Unknown Test Item Value Reference Range Comments Unknown (test code = 3016-3) 2.96 mcIU/mL Unknown 0.34-5.60 F Ordering Physician UnknownLaboratory Kxajubl0347-66-71 03:30:00Identifier 74685- 6 Result Time 2018-10-03 03:30:00Unknown Test Item Value Reference Range Comments Unknown (test code = 2524-7) 1.2 mmol/L Unknown 0.5-2.0 F Ordering Physician Unknown
--- OUTSIDE RECORDS SUMMARY | 2019-06-08 15:20 | XMS REPORT ---
:1940 Author Organization [facility] Care Team Providers Name Role Phone Unavailable [...] Result Comments Laboratory Studies 2018-10-08 07:33:00 Identifier [id number] Result Time Unknown 2018-10-08 07:33:00 Test Item Value Reference Range Comments Unknown (test code = 2339-0) 131 mg/dL Unknown 70-100 F Ordering Physician UnknownLaboratory Mfbzswk9268-97-08 07:41:00Identifier [id number]- 6 Result Time 2018-10-07 07:41:00Unknown Test Item Value Reference Range Comments Unknown (test code = 2951-2) 134 mmol/L Unknown 135-145 F Ordering Physician UnknownLaboratory Tlfofzb1651-21-75 07:41:00Identifier [id number]- 6 Result Time 2018-10-07 07:41:00Unknown Test Item Value Reference Range Comments Unknown (test code = 2823-3) 4.1 mmol/L Unknown 3.5-5.0 F Ordering Physician UnknownLaboratory Cfqyban3671-72-56 07:41:00Identifier [id number]- 6 Result Time 2018-10-07 07:41:00Unknown Test Item Value Reference Range Comments Unknown (test code = 2345-7) 101 mg/dL Unknown 70-100 F Ordering Physician UnknownLaboratory Wxiszsc3816-07-57 07:41:00Identifier [id number]- 6 Result Time 2018-10-07 07:41:00Unknown Test Item Value Reference Range Comments Unknown (test code = 92906-9) 57.7 Unknown Unknown F Ordering Physician UnknownLaboratory Bvrkfwx6420-96-06 07:41:00Identifier [id number]- 6 Result Time 2018-10-07 07:41:00Unknown Test Item Value Reference Range Comments Unknown (test code = NullTestCode) 69.8 Unknown Unknown F Ordering Physician UnknownLaboratory Hbuvpqo9955-81-34 07:41:00Identifier [id number]- 6 Result Time 2018-10-07 07:41:00Unknown Test Item Value Reference Range Comments Unknown (test code = 2160-0) 1.21 mg/dL Unknown 0.67-1.17 F Ordering Physician UnknownLaboratory Svcisly1027-71-90 07:41:00Identifier [id number]- 6 Result Time 2018-10-07 07:41:00Unknown Test Item Value Reference Range Comments Unknown (test code = 2075-0) 101 mmol/L Unknown 101-111 F Ordering Physician UnknownLaboratory Bqdhhpj5687-92-24 07:41:00Identifier [id number]- 6 Result Time 2018-10-07 07:41:00Unknown Test Item Value Reference Range Comments Unknown (test code = 2028-9) 25 mmol/L Unknown 22-32 F Ordering Physician UnknownLaboratory Yokfllj3503-03-78 07:41:00Identifier [id number]- 6 Result Time 2018-10-07 07:41:00Unknown Test Item Value Reference Range Comments Unknown (test code = 06359-4) 9.1 mg/dL Unknown 8.6-10.3 F Ordering Physician UnknownLaboratory Skisudf5191-93-31 07:41:00Identifier [id number]- 6 Result Time 2018-10-07 07:41:00Unknown Test Item Value Reference Range Comments Unknown (test code = 3094-0) 14 mg/dL Unknown 6-24 F Ordering Physician UnknownLaboratory Ashdlof7330-82-62 07:41:00Identifier [id number]- 6 Result Time 2018-10-07 07:41:00Unknown Test Item Value Reference Range Comments Unknown (test code = 3097-3) 11.6 Unknown 8-20 F Ordering Physician UnknownLaboratory Nxlqqlm6856-47-64 07:41:00Identifier [id number]- 6 Result Time 2018-10-07 07:41:00Unknown Test Item Value Reference Range Comments Unknown (test code = 79024-0) 8 mmol/L Unknown 2-11 F Ordering Physician UnknownLaboratory Fhryjgs9098-26-51 22:12:00Identifier [id number]- 6 Result Time 2018-10-05 22:12:00Unknown Test Item Value Reference Range Comments Unknown (test code = 03511-8) 355 mg/dL Unknown 70-100 F Ordering Physician UnknownLaboratory Twvoybn7591-52-69 04:45:00Identifier [id number]- 6 Result Time 2018-10-05 04:45:00Unknown Test Item Value Reference Range Comments Unknown (test code = 1988-5) 23.24 mg/L Unknown 0-8.00 F Ordering Physician UnknownLaboratory Xljsxaz9878-43-70 21:41:00Identifier [id number]- 6 Result Time 2018-10-04 21:41:00Unknown Test Item Value Reference Range Comments Unknown (test code = 2143-6) 6.51 mcg/dL Unknown Unknown F Ordering Physician UnknownLaboratory Isqywnx3329-50-80 04:33:00Identifier 84712- 6 Result Time 2018-10-04 04:33:00Unknown Test Item Value Reference Range Comments Unknown (test code = 14512-7) 48 pg/mL Unknown Unknown F Ordering Physician UnknownLaboratory Spvkvyz7492-62-96 04:33:00Identifier [id number]- 6 Result Time 2018-10-04 04:33:00Unknown Test Item Value Reference Range Comments Unknown (test code = 2885-2) 6.7 g/dL Unknown 6.4-8.9 F Ordering Physician UnknownLaboratory Iptudmq7057-16-31 04:33:00Identifier [id number]- 6 Result Time 2018-10-04 04:33:00Unknown Test Item Value Reference Range Comments Unknown (test code = 1975-2) 0.30 mg/dL Unknown 0.2-1.0 F Ordering Physician UnknownLaboratory Gbegyqt4949-78-98 04:33:00Identifier [id number]- 6 Result Time 2018-10-04 04:33:00Unknown Test Item Value Reference Range Comments Unknown (test code = 2777-1) 3.4 mg/dL Unknown 2.5-5.0 F Ordering Physician UnknownLaboratory Edqmlci1740-75-11 04:33:00Identifier [id number]- 6 Result Time 2018-10-04 04:33:00Unknown Test Item Value Reference Range Comments Unknown (test code = 54661-9) 2.0 mg/dL Unknown 1.9-2.7 F Ordering Physician UnknownLaboratory Tgzvgiz0514-44-67 04:33:00Identifier 80648- 6 Result Time 2018-10-04 04:33:00Unknown Test Item Value Reference Range Comments Unknown (test code = NullTestCode) 3.2 g/dL Unknown 2-4 F Ordering Physician UnknownLaboratory Oxddfui0782-75-60 04:33:00Identifier 70762- 6 Result Time 2018-10-04 04:33:00Unknown Test Item Value Reference Range Comments Unknown (test code = 1920-8) 15 U/L Unknown 13-39 F Ordering Physician UnknownLaboratory Fhffmef8284-17-49 04:33:00Identifier 63613- 6 Result Time 2018-10-04 04:33:00Unknown Test Item Value Reference Range Comments Unknown (test code = 6768-6) 72 U/L Unknown 34-104 F Ordering Physician UnknownLaboratory Bhilwjd2168-61-90 04:33:00Identifier [id number]- 6 Result Time 2018-10-04 04:33:00Unknown Test Item Value Reference Range Comments Unknown (test code = 1759-0) 1.1 Unknown 1-3 F Ordering Physician UnknownLaboratory Ocoehbr1884-68-81 04:33:00Identifier 99239- 6 Result Time 2018-10-04 04:33:00Unknown Test Item Value Reference Range Comments Unknown (test code = 69214-0) 3.5 g/dL Unknown 3.2-5.2 F Ordering Physician UnknownLaboratory Luoopno2083-06-94 04:33:00Identifier [id number]- 6 Result Time 2018-10-04 04:33:00Unknown Test Item Value Reference Range Comments Unknown (test code = 1742-6) 12 U/L Unknown 7-52 F Ordering Physician UnknownLaboratory Mfqtpoq2364-46-30 04:33:00Identifier [id number]- 6 Result Time 2018-10-04 04:33:00Unknown Test Item Value Reference Range Comments Unknown (test code = 56203-5) 6.5 10^3/uL Unknown 3.5-10.8 F Ordering Physician UnknownLaboratory Mwrlrug0360-41-02 04:33:00Identifier [id number]- 6 Result Time 2018-10-04 04:33:00Unknown Test Item Value Reference Range Comments Unknown (test code = 788-0) 14 % Unknown 10.5-15 F Ordering Physician UnknownLaboratory Sbtsfce0128-49-40 04:33:00Identifier [id number]- 6 Result Time 2018-10-04 04:33:00Unknown Test Item Value Reference Range Comments Unknown (test code = 789-8) 3.96 10^6 /uL Unknown 4.18-5.48 F Ordering Physician UnknownLaboratory Ukhwpvp5354-23-70 04:33:00Identifier 70514- 6 Result Time 2018-10-04 04:33:00Unknown Test Item Value Reference Range Comments Unknown (test code = 777-3) 223 10^3/uL Unknown 150-450 F Ordering Physician UnknownLaboratory Totwcbz4503-45-02 04:33:00Identifier [id number]- 6 Result Time 2018-10-04 04:33:00Unknown Test Item Value Reference Range Comments Unknown (test code = 46755-8) 0 Unknown Unknown F Ordering Physician UnknownLaboratory Qrmrvsk9290-71-43 04:33:00Identifier [id number]- 6 Result Time 2018-10-04 04:33:00Unknown Test Item Value Reference Range Comments Unknown (test code = 771-6) 0 10^3/ul Unknown Unknown F Ordering Physician UnknownLaboratory Erpkgwv7578-99-15 04:33:00Identifier 44376- 6 Result Time 2018-10-04 04:33:00Unknown Test Item Value Reference Range Comments Unknown (test code = 770-8) 62.0 % Unknown Unknown F Ordering Physician UnknownLaboratory Phmnhlc6146-40-08 04:33:00Identifier 53800- 6 Result Time 2018-10-04 04:33:00Unknown Test Item Value Reference Range Comments Unknown (test code = 5905-5) 14.1 % Unknown Unknown F Ordering Physician UnknownLaboratory Epqysnf5577-03-40 04:33:00Identifier 71493- 6 Result Time 2018-10-04 04:33:00Unknown Test Item Value Reference Range Comments Unknown (test code = 44952-4) 8.2 fL Unknown 7.4-10.4 F Ordering Physician UnknownLaboratory Kohkilh0122-52-11 04:33:00Identifier 87065- 6 Result Time 2018-10-04 04:33:00Unknown Test Item Value Reference Range Comments Unknown (test code = 787-2) 92 fL Unknown 80-94 F Ordering Physician UnknownLaboratory Jqrixlf1568-77-55 04:33:00Identifier [id number]- 6 Result Time 2018-10-04 04:33:00Unknown Test Item Value Reference Range Comments Unknown (test code = 786-4) 34 g/dL Unknown 31-36 F Ordering Physician UnknownLaboratory Hhgjxja7083-10-48 04:33:00Identifier 35783- 6 Result Time 2018-10-04 04:33:00Unknown Test Item Value Reference Range Comments Unknown (test code = 785-6) 31 pg Unknown - F Ordering Physician UnknownLaboratory Pzffjyb9719-16-09 04:33:00Identifier 21366- 6 Result Time 2018-10-04 04:33:00Unknown Test Item Value Reference Range Comments Unknown (test code = 736-9) 21.1 % Unknown Unknown F Ordering Physician UnknownLaboratory Xrttgvo3972-04-37 04:33:00Identifier [id number]- 6 Result Time 2018-10-04 04:33:00Unknown Test Item Value Reference Range Comments Unknown (test code = 718-7) 12.2 g/dL Unknown 14.0-18.0 F Ordering Physician UnknownLaboratory Lzlstqo0181-43-11 04:33:00Identifier 20342- 6 Result Time 2018-10-04 04:33:00Unknown Test Item Value Reference Range Comments Unknown (test code = 4544-3) 36 % Unknown 36-46 F Ordering Physician UnknownLaboratory Zrgeavg2851-20-84 04:33:00Identifier 98582- 6 Result Time 2018-10-04 04:33:00Unknown Test Item Value Reference Range Comments Unknown (test code = 713-8) 2.4 % Unknown Unknown F Ordering Physician UnknownLaboratory Rpyvxbu1299-20-75 04:33:00Identifier [id number]- 6 Result Time 2018-10-04 04:33:00Unknown Test Item Value Reference Range Comments Unknown (test code = 706-2) 0.4 % Unknown Unknown F Ordering Physician UnknownLaboratory Whyssmv2191-23-26 04:33:00Identifier 43194- 6 Result Time 2018-10-04 04:33:00Unknown Test Item Value Reference Range Comments Unknown (test code = 751-8) 4.0 10^3/ul Unknown 1.5-7.7 F Ordering Physician UnknownLaboratory Uykuyte4121-99-36 04:33:00Identifier 02816- 6 Result Time 2018-10-04 04:33:00Unknown Test Item Value Reference Range Comments Unknown (test code = 742-7) 0.9 10^3/ul Unknown 0-0.8 F Ordering Physician UnknownLaboratory Szngsje5501-15-30 04:33:00Identifier 03657- 6 Result Time 2018-10-04 04:33:00Unknown Test Item Value Reference Range Comments Unknown (test code = 731-0) 1.4 10^3/ul Unknown 1.0-4.8 F Ordering Physician UnknownLaboratory Kzehppx2654-27-04 04:33:00Identifier 40812- 6 Result Time 2018-10-04 04:33:00Unknown Test Item Value Reference Range Comments Unknown (test code = 711-2) 0.2 10^3/ul Unknown 0-0.6 F Ordering Physician UnknownLaboratory Xkxnxbg7812-83-35 04:33:00Identifier 30093- 6 Result Time 2018-10-04 04:33:00Unknown Test Item Value Reference Range Comments Unknown (test code = 704-7) 0 10^3/ul Unknown 0-0.2 F Ordering Physician UnknownLaboratory Truhpqv5933-96-86 21:14:00Identifier [id number]- 6 Result Time 2018-10-03 21:14:00Unknown Test Item Value Reference Range Comments Unknown (test code = 3095-7) 727 mg/dL Unknown Unknown F Ordering Physician UnknownLaboratory Mabbvwq9843-44-33 21:14:00Identifier 79371- 6 Result Time 2018-10-03 21:14:00Unknown Test Item Value Reference Range Comments Unknown (test code = 2955-3) 54 mmol/L Unknown Unknown F Ordering Physician UnknownLaboratory Pltqluk0295-48-23 21:14:00Identifier 66446- 6 Result Time 2018-10-03 21:14:00Unknown Test Item Value Reference Range Comments Unknown (test code = 2161-8) 88.57 mg/dL Unknown Unknown F Ordering Physician UnknownLaboratory Dwcxmtv2119-05-76 19:37:00Identifier [id number]- 6 Result Time 2018-10-03 19:37:00Unknown Test Item Value Reference Range Comments Unknown (test code = 50222-1) 0.03 ng/mL Unknown Unknown F Ordering Physician UnknownLaboratory Hvovbrf3362-94-32 06:49:00Identifier 17287- 6 Result Time 2018-10-03 06:49:00Unknown Test Item Value Reference Range Comments Unknown (test code = NullTestCode) 5.0 Unknown 5-9 F Ordering Physician UnknownLaboratory Fcqoqdd6925-09-12 06:49:00Identifier 36510- 6 Result Time 2018-10-03 06:49:00Unknown Test Item Value Reference Range Comments Unknown (test code = 60606-1) 1.011 Unknown 1.010-1.030 F Ordering Physician UnknownLaboratory Vitdpst2315-64-86 03:30:00Identifier 07543- 6 Result Time 2018-10-03 03:30:00Unknown Test Item Value Reference Range Comments Unknown (test code = 3016-3) 2.96 mcIU/mL Unknown 0.34-5.60 F Ordering Physician UnknownLaboratory Bvidruj8540-24-87 03:30:00Identifier [id number]- 6 Result Time 2018-10-03 03:30:00Unknown Test Item Value Reference Range Comments Unknown (test code = 2524-7) 1.2 mmol/L Unknown 0.5-2.0 F Ordering Physician Unknown
--- OUTSIDE RECORDS SUMMARY | 2019-06-08 15:21 | XMS REPORT ---
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 admn 0-08 Foster dependence 10:15: [id number] 00 Endo/Sundar knowledge/s Endo/Sundar Active 2018-07 Марина kill 0-08 Foster deficit: pt 10:15: [id number] 00 Endo/Sundar diabetic Endo/Sundar Active 2018-07 Марина foot care 0-08 Foster 10:15: [id number] 00 Endo/Sundar anti-coagul Endo/Sundar Active 2018-07 Марина ation 0-08 Foster therapy 10:15: [id number] 00 Sensory impaired Sensory Active 2018-07 Марина hearing 0-08 Foster 10:15: [id number] 00 Integument skin Integument Active 2018-07 Марина integrity 0-08 Foster risk 10:15: [id number] 00 Nutrition nutritional Nutrition Active 2018-07 Марина restriction 0-08 Foster s 10:15: [id number] 00 Elimination urinary Eliminatio Resolve 2018-072019-05-21 Марина incontinenc n d 0-08 09:25:00 Anna Marie e 10:15: [id number] 00 Neuro confusion Neuro/Emot Active 2018-07 Марина present ion 0-08 Foster 10:15: [id number] 00 Neuro impaired Neuro/Emot Active 2018- Марина decision-ma ion 0-08 Foster sarah 10:15: [id number] 00 Neuro memory Neuro/Emot Active 2018- Марина deficit ion 0-08 Foster needing 10:15: [id number] supervision 00 Activity ADL Activity Active 2018- Марина assistance 0-08 Foster required 10:15: [id number] 00 Activity self-care Activity Active 2018-07 Марина deficit 0-08 [place] 10:15: [id number] 00 Safety sanitation Safety Active 2018- Марина hazards 0-08 Foster present 10:15: [id number] 00 Safety cannot be Safety Active 2018-07 Марина left alone 0-08 Foster 10:15: [id number] 00 Safety knowledge/s Safety Active 2018-07 Марина kill 0-08 Foster deficit: pt 10:15: [id number] 00 Safety knowledge/s Safety Active 2018-07 Марина kill 0-08 Foster deficit: cg 10:15: [id number] 00 Safety fall risk Safety Active 2018- Марина factor 0-08 Foster present 10:15: [id number] 00 Safety risk for Safety Active 2018- Марина hospitaliza 0-08 Foster tion 10:15: [id number] 00 Medication oral med Meds Resolve 2018-072019-05-21 Марина assistance d 0-08 09:25:00 Anna Marie required 10:15: [id number] 00 Medication injectable Meds Resolve 2018-072019-05-21 Марина med d 0-08 09:25:00 Foster assistance 10:15: [id number] required 00 Medication knowledge/s Meds Active 2018-07 Марина kill 0-08 Foster deficit: pt 10:15: [id number] 00 Medication potential Meds Active 2018- Марина clinically 0-08 Anna Marie significant 10:15: [id number] medication 00 issue Musculoskel transfer Musculoske Active 2018- Марина etal assistance letal 0-08 Foster required 10:15: [id number] 00 Musculoskel requires Musculoske Active 2018- Марина etal human letal 0-08 Foster assist to 10:15: [id number] leave home 00 Elimination constipatio Eliminatio Resolve 2018-072019-05-21 Esther n n d 0-11 09:25:00 Carrier RN 20:00: 00 OT: Self self-care OT: Active 2018-07 [place] Care deficit Self-Care 0-22 Black 13:30: [id number] 00 Integument knowledge/s Integument Active 2018-07 Esther [...] Observation Time Observation Value Comments SYSTOLIC mm[Hg] 2019-05-24 18:08:55 122 mm[Hg] mm[Hg] Method: Sit SYSTOLIC mm[Hg] 2019-04-13 18:08:14 120 mm[Hg] mm[Hg] Method: Stand DIASTOLIC mm[Hg] 2019-05-24 18:08:55 70 mm[Hg] mm[Hg] Method: Sit DIASTOLIC mm[Hg] 2019-04-13 18:08:14 78 mm[Hg] mm[Hg] Method: Stand PULSE 2019-05-24 18:08:55 82 /min /min RESP RATE 2019-05-24 18:08:55 16 /min /min TEMP 2019-05-24 18:08:55 97.5 [degF] Procedures This patient has no known procedures. Results This patient has no known results.
--- OUTSIDE RECORDS SUMMARY | 2019-06-08 15:21 | XMS REPORT ---
:1940 Author Organization [facility] Care Team Providers Name Role Phone Unavailable Unavailable Unavailable Problems Condition Condition Condition Status Onset Resolution Last Treating Comments Name Details Category Date Date Treatment Clinician Date Pain frequent Pain Mgmt Resolve 2018-072019-05-24 Марина pain d 0-08 14:15:00 [place] 10:15: [id number] 00 Respiratory dyspnea Respirator Active 2018-07 Марина present y 0-08 [place] 10:15: [id number] 00 Respiratory CPAP Respirator Active 2018-07 Марина treatments y 0-08 [place] in home 10:15: [id number] 00 Endo/Sundar insulin Endo/Sundar Active 2018-07 Марина admn 0-08 [place] dependence 10:15: [id number] 00 Endo/Sundar knowledge/s Endo/Sundar Active 2018-07 Марина kill 0-08 [place] deficit: pt 10:15: [id number] 00 Endo/Sundar diabetic Endo/Sundar Active 2018-07 Марина foot care 0-08 [place] 10:15: [id number] 00 Endo/Sundar anti-coagul Endo/Sundar Active 2018-07 Марина ation 0-08 [place] therapy 10:15: [id number] 00 Sensory impaired Sensory Active 2018-07 Марина hearing 0-08 [place] 10:15: [id number] 00 Integument skin Integument Active 2018-07 Марина integrity 0-08 [place] risk 10:15: [id number] 00 Nutrition nutritional Nutrition Active 2018-07 Марина restriction 0-08 [place] s 10:15: [id number] 00 Elimination urinary Eliminatio Resolve 2018-072019-05-21 Марина incontinenc n d 0-08 09:25:00 Anna Marie e 10:15: [id number] 00 Neuro confusion Neuro/Emot Active 2018-07 Марина present ion 0-08 [place] 10:15: [id number] 00 Neuro impaired Neuro/Emot Active 2018- Марина decision-ma ion 0-08 [place] sarah 10:15: [id number] 00 Neuro memory Neuro/Emot Active 2018- Марина deficit ion 0-08 [place] needing 10:15: [id number] supervision 00 Activity ADL Activity Active 2018- Марина assistance 0-08 [place] required 10:15: [id number] 00 Activity self-care Activity Active 2018-07 Марина deficit 0-08 [place] 10:15: [id number] 00 Safety sanitation Safety Active 2018- Марина hazards 0-08 [place] present 10:15: [id number] 00 Safety cannot be Safety Active 2018-07 Марина left alone 0-08 [place] 10:15: [id number] 00 Safety knowledge/s Safety Active 2018-07 Марина kill 0-08 [place] deficit: pt 10:15: [id number] 00 Safety knowledge/s Safety Active 2018-07 Марина kill 0-08 [place] deficit: cg 10:15: [id number] 00 Safety fall risk Safety Active 2018- Марина factor 0-08 [place] present 10:15: [id number] 00 Safety risk for Safety Active 2018- Марина hospitaliza 0-08 [place] tion 10:15: [id number] 00 Medication oral med Meds Resolve 2018-072019-05-21 Марина assistance d 0-08 09:25:00 Anna Marie required 10:15: [id number] 00 Medication injectable Meds Resolve 2018-072019-05-21 Марина med d 0-08 09:25:00 [place] assistance 10:15: [id number] required 00 Medication knowledge/s Meds Active 2018-07 Марина kill 0-08 [place] deficit: pt 10:15: [id number] 00 Medication potential Meds Active 2018- Марина clinically 0-08 Anna Marie significant 10:15: [id number] medication 00 issue Musculoskel transfer Musculoske Active 2018- Марина etal assistance letal 0-08 [place] required 10:15: [id number] 00 Musculoskel requires Musculoske Active 2018- Марина etal human letal 0-08 [place] assist to 10:15: [id number] leave home 00 Elimination constipatio Eliminatio Resolve 2018-072019-05-21 Esther n n d 0-11 09:25:00 Carrier RN 20:00: 00 OT: Self self-care OT: Active 2018-07 [place] Care deficit Self-Care 0-22 Black 13:30: [id number] 00 Integument knowledge/s Integument Active 2018-07 Esther [...] Observation Time Observation Value Comments SYSTOLIC mm[Hg] 2019-05-25 18:08:56 108 mm[Hg] mm[Hg] Method: Sit SYSTOLIC mm[Hg] 2019-04-13 18:08:14 120 mm[Hg] mm[Hg] Method: Stand DIASTOLIC mm[Hg] 2019-05-25 18:08:56 68 mm[Hg] mm[Hg] Method: Sit DIASTOLIC mm[Hg] 2019-04-13 18:08:14 78 mm[Hg] mm[Hg] Method: Stand PULSE 2019-05-25 18:08:56 80 /min /min RESP RATE 2019-05-24 18:08:55 16 /min /min TEMP 2019-05-25 18:08:56 97.6 [degF] Procedures This patient has no known procedures. Results This patient has no known results.
--- OUTSIDE RECORDS SUMMARY | 2019-06-08 15:21 | XMS REPORT ---
:1940 Author Organization [facility] Care Team Providers Name Role Phone Unavailable [...] Result Comments Laboratory Studies 2018-10-08 07:33:00 Identifier [id number] Result Time Unknown 2018-10-08 07:33:00 Test Item Value Reference Range Comments Unknown (test code = 2339-0) 131 mg/dL Unknown 70-100 F Ordering Physician UnknownLaboratory Bttfuwh8332-05-06 07:41:00Identifier 90761- 6 Result Time 2018-10-07 07:41:00Unknown Test Item Value Reference Range Comments Unknown (test code = 2951-2) 134 mmol/L Unknown 135-145 F Ordering Physician UnknownLaboratory Flpvxip7301-01-90 07:41:00Identifier 24892- 6 Result Time 2018-10-07 07:41:00Unknown Test Item Value Reference Range Comments Unknown (test code = 2823-3) 4.1 mmol/L Unknown 3.5-5.0 F Ordering Physician UnknownLaboratory Kdqkpge6516-77-05 07:41:00Identifier 82081- 6 Result Time 2018-10-07 07:41:00Unknown Test Item Value Reference Range Comments Unknown (test code = 2345-7) 101 mg/dL Unknown 70-100 F Ordering Physician UnknownLaboratory Wkonpgr4981-83-68 07:41:00Identifier 03196- 6 Result Time 2018-10-07 07:41:00Unknown Test Item Value Reference Range Comments Unknown (test code = 85549-0) 57.7 Unknown Unknown F Ordering Physician UnknownLaboratory Ufpeahr0599-25-96 07:41:00Identifier 10342- 6 Result Time 2018-10-07 07:41:00Unknown Test Item Value Reference Range Comments Unknown (test code = NullTestCode) 69.8 Unknown Unknown F Ordering Physician UnknownLaboratory Usksvin2179-59-36 07:41:00Identifier 89871- 6 Result Time 2018-10-07 07:41:00Unknown Test Item Value Reference Range Comments Unknown (test code = 2160-0) 1.21 mg/dL Unknown 0.67-1.17 F Ordering Physician UnknownLaboratory Xwpjczh7467-22-06 07:41:00Identifier 60002- 6 Result Time 2018-10-07 07:41:00Unknown Test Item Value Reference Range Comments Unknown (test code = 2075-0) 101 mmol/L Unknown 101-111 F Ordering Physician UnknownLaboratory Jrnzgqm5018-81-78 07:41:00Identifier 62135- 6 Result Time 2018-10-07 07:41:00Unknown Test Item Value Reference Range Comments Unknown (test code = 2028-9) 25 mmol/L Unknown 22-32 F Ordering Physician UnknownLaboratory Gtikdnc0220-50-93 07:41:00Identifier 28429- 6 Result Time 2018-10-07 07:41:00Unknown Test Item Value Reference Range Comments Unknown (test code = 52728-8) 9.1 mg/dL Unknown 8.6-10.3 F Ordering Physician UnknownLaboratory Qifvbmt2951-78-90 07:41:00Identifier 79540- 6 Result Time 2018-10-07 07:41:00Unknown Test Item Value Reference Range Comments Unknown (test code = 3094-0) 14 mg/dL Unknown 6-24 F Ordering Physician UnknownLaboratory Hczuiwc4567-86-58 07:41:00Identifier 77507- 6 Result Time 2018-10-07 07:41:00Unknown Test Item Value Reference Range Comments Unknown (test code = 3097-3) 11.6 Unknown 8-20 F Ordering Physician UnknownLaboratory Zkdgxqs7678-72-48 07:41:00Identifier 93041- 6 Result Time 2018-10-07 07:41:00Unknown Test Item Value Reference Range Comments Unknown (test code = 96898-8) 8 mmol/L Unknown 2-11 F Ordering Physician UnknownLaboratory Agcdlxx3882-77-13 22:12:00Identifier 76643- 6 Result Time 2018-10-05 22:12:00Unknown Test Item Value Reference Range Comments Unknown (test code = 86182-6) 355 mg/dL Unknown 70-100 F Ordering Physician UnknownLaboratory Kgsennb0866-69-05 04:45:00Identifier 42498- 6 Result Time 2018-10-05 04:45:00Unknown Test Item Value Reference Range Comments Unknown (test code = 1988-5) 23.24 mg/L Unknown 0-8.00 F Ordering Physician UnknownLaboratory Dzzejoj4284-73-19 21:41:00Identifier 81888- 6 Result Time 2018-10-04 21:41:00Unknown Test Item Value Reference Range Comments Unknown (test code = 2143-6) 6.51 mcg/dL Unknown Unknown F Ordering Physician UnknownLaboratory Zslfmmb4102-64-15 04:33:00Identifier 81733- 6 Result Time 2018-10-04 04:33:00Unknown Test Item Value Reference Range Comments Unknown (test code = 76814-5) 48 pg/mL Unknown Unknown F Ordering Physician UnknownLaboratory Zipsofj8033-77-72 04:33:00Identifier 04803- 6 Result Time 2018-10-04 04:33:00Unknown Test Item Value Reference Range Comments Unknown (test code = 2885-2) 6.7 g/dL Unknown 6.4-8.9 F Ordering Physician UnknownLaboratory Yorocpi2468-12-97 04:33:00Identifier 16464- 6 Result Time 2018-10-04 04:33:00Unknown Test Item Value Reference Range Comments Unknown (test code = 1975-2) 0.30 mg/dL Unknown 0.2-1.0 F Ordering Physician UnknownLaboratory Whbbpox5677-53-71 04:33:00Identifier 01135- 6 Result Time 2018-10-04 04:33:00Unknown Test Item Value Reference Range Comments Unknown (test code = 2777-1) 3.4 mg/dL Unknown 2.5-5.0 F Ordering Physician UnknownLaboratory Bijzmdm6148-92-24 04:33:00Identifier 73950- 6 Result Time 2018-10-04 04:33:00Unknown Test Item Value Reference Range Comments Unknown (test code = 74897-4) 2.0 mg/dL Unknown 1.9-2.7 F Ordering Physician UnknownLaboratory Xhurdtc4776-86-12 04:33:00Identifier 12244- 6 Result Time 2018-10-04 04:33:00Unknown Test Item Value Reference Range Comments Unknown (test code = NullTestCode) 3.2 g/dL Unknown 2-4 F Ordering Physician UnknownLaboratory Riqgrsy9426-15-39 04:33:00Identifier 16420- 6 Result Time 2018-10-04 04:33:00Unknown Test Item Value Reference Range Comments Unknown (test code = 1920-8) 15 U/L Unknown 13-39 F Ordering Physician UnknownLaboratory Adtzddc6325-50-71 04:33:00Identifier 92901- 6 Result Time 2018-10-04 04:33:00Unknown Test Item Value Reference Range Comments Unknown (test code = 6768-6) 72 U/L Unknown 34-104 F Ordering Physician UnknownLaboratory Lhhaczw4897-33-84 04:33:00Identifier 01228- 6 Result Time 2018-10-04 04:33:00Unknown Test Item Value Reference Range Comments Unknown (test code = 1759-0) 1.1 Unknown 1-3 F Ordering Physician UnknownLaboratory Fyuuqbv5230-75-17 04:33:00Identifier 66564- 6 Result Time 2018-10-04 04:33:00Unknown Test Item Value Reference Range Comments Unknown (test code = 81836-4) 3.5 g/dL Unknown 3.2-5.2 F Ordering Physician UnknownLaboratory Gzkjvbl5069-02-30 04:33:00Identifier 70431- 6 Result Time 2018-10-04 04:33:00Unknown Test Item Value Reference Range Comments Unknown (test code = 1742-6) 12 U/L Unknown 7-52 F Ordering Physician UnknownLaboratory Vxncbor4925-21-88 04:33:00Identifier 74450- 6 Result Time 2018-10-04 04:33:00Unknown Test Item Value Reference Range Comments Unknown (test code = 22067-0) 6.5 10^3/uL Unknown 3.5-10.8 F Ordering Physician UnknownLaboratory Zartswf7689-10-46 04:33:00Identifier 76693- 6 Result Time 2018-10-04 04:33:00Unknown Test Item Value Reference Range Comments Unknown (test code = 788-0) 14 % Unknown 10.5-15 F Ordering Physician UnknownLaboratory Xhinmam9109-74-10 04:33:00Identifier 22675- 6 Result Time 2018-10-04 04:33:00Unknown Test Item Value Reference Range Comments Unknown (test code = 789-8) 3.96 10^6 /uL Unknown 4.18-5.48 F Ordering Physician UnknownLaboratory Kdchljq6095-41-89 04:33:00Identifier 36866- 6 Result Time 2018-10-04 04:33:00Unknown Test Item Value Reference Range Comments Unknown (test code = 777-3) 223 10^3/uL Unknown 150-450 F Ordering Physician UnknownLaboratory Nqwmmmf3375-11-17 04:33:00Identifier 55455- 6 Result Time 2018-10-04 04:33:00Unknown Test Item Value Reference Range Comments Unknown (test code = 65649-3) 0 Unknown Unknown F Ordering Physician UnknownLaboratory Pqkqnkl2446-69-95 04:33:00Identifier 77060- 6 Result Time 2018-10-04 04:33:00Unknown Test Item Value Reference Range Comments Unknown (test code = 771-6) 0 10^3/ul Unknown Unknown F Ordering Physician UnknownLaboratory Olstlmr5957-09-86 04:33:00Identifier 29407- 6 Result Time 2018-10-04 04:33:00Unknown Test Item Value Reference Range Comments Unknown (test code = 770-8) 62.0 % Unknown Unknown F Ordering Physician UnknownLaboratory Hjxdmvb2669-24-81 04:33:00Identifier 91185- 6 Result Time 2018-10-04 04:33:00Unknown Test Item Value Reference Range Comments Unknown (test code = 5905-5) 14.1 % Unknown Unknown F Ordering Physician UnknownLaboratory Vcsqcpd9462-86-74 04:33:00Identifier 26771- 6 Result Time 2018-10-04 04:33:00Unknown Test Item Value Reference Range Comments Unknown (test code = 26570-2) 8.2 fL Unknown 7.4-10.4 F Ordering Physician UnknownLaboratory Jlxhgdn7714-41-58 04:33:00Identifier 63641- 6 Result Time 2018-10-04 04:33:00Unknown Test Item Value Reference Range Comments Unknown (test code = 787-2) 92 fL Unknown 80-94 F Ordering Physician UnknownLaboratory Vmrgknw8199-87-71 04:33:00Identifier 70965- 6 Result Time 2018-10-04 04:33:00Unknown Test Item Value Reference Range Comments Unknown (test code = 786-4) 34 g/dL Unknown 31-36 F Ordering Physician UnknownLaboratory Sjmdvrg2221-35-43 04:33:00Identifier 12162- 6 Result Time 2018-10-04 04:33:00Unknown Test Item Value Reference Range Comments Unknown (test code = 785-6) 31 pg Unknown - F Ordering Physician UnknownLaboratory Mmyelnp5073-71-19 04:33:00Identifier 13922- 6 Result Time 2018-10-04 04:33:00Unknown Test Item Value Reference Range Comments Unknown (test code = 736-9) 21.1 % Unknown Unknown F Ordering Physician UnknownLaboratory Qmrxrhu9180-11-46 04:33:00Identifier 83158- 6 Result Time 2018-10-04 04:33:00Unknown Test Item Value Reference Range Comments Unknown (test code = 718-7) 12.2 g/dL Unknown 14.0-18.0 F Ordering Physician UnknownLaboratory Waptncv8276-69-07 04:33:00Identifier 63088- 6 Result Time 2018-10-04 04:33:00Unknown Test Item Value Reference Range Comments Unknown (test code = 4544-3) 36 % Unknown 36-46 F Ordering Physician UnknownLaboratory Apyfvse6210-52-60 04:33:00Identifier 80538- 6 Result Time 2018-10-04 04:33:00Unknown Test Item Value Reference Range Comments Unknown (test code = 713-8) 2.4 % Unknown Unknown F Ordering Physician UnknownLaboratory Zxrrkzp9177-27-22 04:33:00Identifier 31421- 6 Result Time 2018-10-04 04:33:00Unknown Test Item Value Reference Range Comments Unknown (test code = 706-2) 0.4 % Unknown Unknown F Ordering Physician UnknownLaboratory Sgnqlic2731-88-50 04:33:00Identifier 73596- 6 Result Time 2018-10-04 04:33:00Unknown Test Item Value Reference Range Comments Unknown (test code = 751-8) 4.0 10^3/ul Unknown 1.5-7.7 F Ordering Physician UnknownLaboratory Uaifhvv8177-05-36 04:33:00Identifier 55038- 6 Result Time 2018-10-04 04:33:00Unknown Test Item Value Reference Range Comments Unknown (test code = 742-7) 0.9 10^3/ul Unknown 0-0.8 F Ordering Physician UnknownLaboratory Wwvostm1516-44-65 04:33:00Identifier 03396- 6 Result Time 2018-10-04 04:33:00Unknown Test Item Value Reference Range Comments Unknown (test code = 731-0) 1.4 10^3/ul Unknown 1.0-4.8 F Ordering Physician UnknownLaboratory Upgimyx4455-01-94 04:33:00Identifier 97293- 6 Result Time 2018-10-04 04:33:00Unknown Test Item Value Reference Range Comments Unknown (test code = 711-2) 0.2 10^3/ul Unknown 0-0.6 F Ordering Physician UnknownLaboratory Imqpvza5424-69-41 04:33:00Identifier 49113- 6 Result Time 2018-10-04 04:33:00Unknown Test Item Value Reference Range Comments Unknown (test code = 704-7) 0 10^3/ul Unknown 0-0.2 F Ordering Physician UnknownLaboratory Uxmnmwu5022-77-17 21:14:00Identifier 55905- 6 Result Time 2018-10-03 21:14:00Unknown Test Item Value Reference Range Comments Unknown (test code = 3095-7) 727 mg/dL Unknown Unknown F Ordering Physician UnknownLaboratory Bynmrjk8621-83-87 21:14:00Identifier 98835- 6 Result Time 2018-10-03 21:14:00Unknown Test Item Value Reference Range Comments Unknown (test code = 2955-3) 54 mmol/L Unknown Unknown F Ordering Physician UnknownLaboratory Ikdshru4015-20-38 21:14:00Identifier 63049- 6 Result Time 2018-10-03 21:14:00Unknown Test Item Value Reference Range Comments Unknown (test code = 2161-8) 88.57 mg/dL Unknown Unknown F Ordering Physician UnknownLaboratory Wczobst7470-79-56 19:37:00Identifier 20778- 6 Result Time 2018-10-03 19:37:00Unknown Test Item Value Reference Range Comments Unknown (test code = 84679-0) 0.03 ng/mL Unknown Unknown F Ordering Physician UnknownLaboratory Sqhqnlr3178-77-35 06:49:00Identifier 89778- 6 Result Time 2018-10-03 06:49:00Unknown Test Item Value Reference Range Comments Unknown (test code = NullTestCode) 5.0 Unknown 5-9 F Ordering Physician UnknownLaboratory Ljhkolt6869-51-16 06:49:00Identifier 80149- 6 Result Time 2018-10-03 06:49:00Unknown Test Item Value Reference Range Comments Unknown (test code = 16693-7) 1.011 Unknown 1.010-1.030 F Ordering Physician UnknownLaboratory Qwwygup2124-63-28 03:30:00Identifier 04710- 6 Result Time 2018-10-03 03:30:00Unknown Test Item Value Reference Range Comments Unknown (test code = 3016-3) 2.96 mcIU/mL Unknown 0.34-5.60 F Ordering Physician UnknownLaboratory Ttcsilx1368-48-30 03:30:00Identifier 68344- 6 Result Time 2018-10-03 03:30:00Unknown Test Item Value Reference Range Comments Unknown (test code = 2524-7) 1.2 mmol/L Unknown 0.5-2.0 F Ordering Physician Unknown
--- OUTSIDE RECORDS SUMMARY | 2019-06-08 15:21 | XMS REPORT ---
:1940 Author Organization [facility] Care Team Providers Name Role Phone Unavailable [...] Result Comments Laboratory Studies 2018-10-08 07:33:00 Identifier [id number] Result Time Unknown 2018-10-08 07:33:00 Test Item Value Reference Range Comments Unknown (test code = 2339-0) 131 mg/dL Unknown 70-100 F Ordering Physician UnknownLaboratory Ewcxhsc7002-09-28 07:41:00Identifier 14979- 6 Result Time 2018-10-07 07:41:00Unknown Test Item Value Reference Range Comments Unknown (test code = 2951-2) 134 mmol/L Unknown 135-145 F Ordering Physician UnknownLaboratory Akhhctn2806-71-32 07:41:00Identifier 96035- 6 Result Time 2018-10-07 07:41:00Unknown Test Item Value Reference Range Comments Unknown (test code = 2823-3) 4.1 mmol/L Unknown 3.5-5.0 F Ordering Physician UnknownLaboratory Idsuoxe2671-73-42 07:41:00Identifier 18435- 6 Result Time 2018-10-07 07:41:00Unknown Test Item Value Reference Range Comments Unknown (test code = 2345-7) 101 mg/dL Unknown 70-100 F Ordering Physician UnknownLaboratory Zusmhyz8361-62-77 07:41:00Identifier 60005- 6 Result Time 2018-10-07 07:41:00Unknown Test Item Value Reference Range Comments Unknown (test code = 70906-2) 57.7 Unknown Unknown F Ordering Physician UnknownLaboratory Clrcanm1948-85-30 07:41:00Identifier 24725- 6 Result Time 2018-10-07 07:41:00Unknown Test Item Value Reference Range Comments Unknown (test code = NullTestCode) 69.8 Unknown Unknown F Ordering Physician UnknownLaboratory Nlanwtj0831-98-50 07:41:00Identifier 32758- 6 Result Time 2018-10-07 07:41:00Unknown Test Item Value Reference Range Comments Unknown (test code = 2160-0) 1.21 mg/dL Unknown 0.67-1.17 F Ordering Physician UnknownLaboratory Lhqdqef8504-19-29 07:41:00Identifier 67030- 6 Result Time 2018-10-07 07:41:00Unknown Test Item Value Reference Range Comments Unknown (test code = 2075-0) 101 mmol/L Unknown 101-111 F Ordering Physician UnknownLaboratory Whoavnm0672-63-54 07:41:00Identifier 20873- 6 Result Time 2018-10-07 07:41:00Unknown Test Item Value Reference Range Comments Unknown (test code = 2028-9) 25 mmol/L Unknown 22-32 F Ordering Physician UnknownLaboratory Yxnicwk3929-42-04 07:41:00Identifier 88449- 6 Result Time 2018-10-07 07:41:00Unknown Test Item Value Reference Range Comments Unknown (test code = 23617-3) 9.1 mg/dL Unknown 8.6-10.3 F Ordering Physician UnknownLaboratory Uhmoppa5101-47-36 07:41:00Identifier 74567- 6 Result Time 2018-10-07 07:41:00Unknown Test Item Value Reference Range Comments Unknown (test code = 3094-0) 14 mg/dL Unknown 6-24 F Ordering Physician UnknownLaboratory Nisycsp5885-90-88 07:41:00Identifier 77325- 6 Result Time 2018-10-07 07:41:00Unknown Test Item Value Reference Range Comments Unknown (test code = 3097-3) 11.6 Unknown 8-20 F Ordering Physician UnknownLaboratory Dlatrzm7370-41-56 07:41:00Identifier 44629- 6 Result Time 2018-10-07 07:41:00Unknown Test Item Value Reference Range Comments Unknown (test code = 08080-5) 8 mmol/L Unknown 2-11 F Ordering Physician UnknownLaboratory Ncrfney2818-06-20 22:12:00Identifier 46150- 6 Result Time 2018-10-05 22:12:00Unknown Test Item Value Reference Range Comments Unknown (test code = 55014-9) 355 mg/dL Unknown 70-100 F Ordering Physician UnknownLaboratory Jubqhzo9231-00-78 04:45:00Identifier 63858- 6 Result Time 2018-10-05 04:45:00Unknown Test Item Value Reference Range Comments Unknown (test code = 1988-5) 23.24 mg/L Unknown 0-8.00 F Ordering Physician UnknownLaboratory Thtyxqr2663-30-72 21:41:00Identifier 99429- 6 Result Time 2018-10-04 21:41:00Unknown Test Item Value Reference Range Comments Unknown (test code = 2143-6) 6.51 mcg/dL Unknown Unknown F Ordering Physician UnknownLaboratory Xbehyyv6224-98-59 04:33:00Identifier 09059- 6 Result Time 2018-10-04 04:33:00Unknown Test Item Value Reference Range Comments Unknown (test code = 71962-2) 48 pg/mL Unknown Unknown F Ordering Physician UnknownLaboratory Oyzlyit8785-14-46 04:33:00Identifier 27328- 6 Result Time 2018-10-04 04:33:00Unknown Test Item Value Reference Range Comments Unknown (test code = 2885-2) 6.7 g/dL Unknown 6.4-8.9 F Ordering Physician UnknownLaboratory Qtbbcfa3938-67-59 04:33:00Identifier 47668- 6 Result Time 2018-10-04 04:33:00Unknown Test Item Value Reference Range Comments Unknown (test code = 1975-2) 0.30 mg/dL Unknown 0.2-1.0 F Ordering Physician UnknownLaboratory Cdacvds8962-42-43 04:33:00Identifier 61224- 6 Result Time 2018-10-04 04:33:00Unknown Test Item Value Reference Range Comments Unknown (test code = 2777-1) 3.4 mg/dL Unknown 2.5-5.0 F Ordering Physician UnknownLaboratory Ohismts8605-97-41 04:33:00Identifier 48735- 6 Result Time 2018-10-04 04:33:00Unknown Test Item Value Reference Range Comments Unknown (test code = 53472-2) 2.0 mg/dL Unknown 1.9-2.7 F Ordering Physician UnknownLaboratory Dgtraep3653-50-63 04:33:00Identifier 42338- 6 Result Time 2018-10-04 04:33:00Unknown Test Item Value Reference Range Comments Unknown (test code = NullTestCode) 3.2 g/dL Unknown 2-4 F Ordering Physician UnknownLaboratory Irxquti5314-06-57 04:33:00Identifier 86152- 6 Result Time 2018-10-04 04:33:00Unknown Test Item Value Reference Range Comments Unknown (test code = 1920-8) 15 U/L Unknown 13-39 F Ordering Physician UnknownLaboratory Ekburmk6181-11-02 04:33:00Identifier 85188- 6 Result Time 2018-10-04 04:33:00Unknown Test Item Value Reference Range Comments Unknown (test code = 6768-6) 72 U/L Unknown 34-104 F Ordering Physician UnknownLaboratory Fizpxdl4236-97-66 04:33:00Identifier 19760- 6 Result Time 2018-10-04 04:33:00Unknown Test Item Value Reference Range Comments Unknown (test code = 1759-0) 1.1 Unknown 1-3 F Ordering Physician UnknownLaboratory Nvfchdl7647-70-05 04:33:00Identifier 81332- 6 Result Time 2018-10-04 04:33:00Unknown Test Item Value Reference Range Comments Unknown (test code = 13953-3) 3.5 g/dL Unknown 3.2-5.2 F Ordering Physician UnknownLaboratory Oobldls8555-08-98 04:33:00Identifier 31239- 6 Result Time 2018-10-04 04:33:00Unknown Test Item Value Reference Range Comments Unknown (test code = 1742-6) 12 U/L Unknown 7-52 F Ordering Physician UnknownLaboratory Huxjjiy6780-92-76 04:33:00Identifier 40920- 6 Result Time 2018-10-04 04:33:00Unknown Test Item Value Reference Range Comments Unknown (test code = 82503-6) 6.5 10^3/uL Unknown 3.5-10.8 F Ordering Physician UnknownLaboratory Juhgxyi1447-98-27 04:33:00Identifier 60434- 6 Result Time 2018-10-04 04:33:00Unknown Test Item Value Reference Range Comments Unknown (test code = 788-0) 14 % Unknown 10.5-15 F Ordering Physician UnknownLaboratory Xxlphiq9870-34-38 04:33:00Identifier 50449- 6 Result Time 2018-10-04 04:33:00Unknown Test Item Value Reference Range Comments Unknown (test code = 789-8) 3.96 10^6 /uL Unknown 4.18-5.48 F Ordering Physician UnknownLaboratory Lpwekyc7624-92-20 04:33:00Identifier 78058- 6 Result Time 2018-10-04 04:33:00Unknown Test Item Value Reference Range Comments Unknown (test code = 777-3) 223 10^3/uL Unknown 150-450 F Ordering Physician UnknownLaboratory Fpeawmq9287-95-74 04:33:00Identifier 76098- 6 Result Time 2018-10-04 04:33:00Unknown Test Item Value Reference Range Comments Unknown (test code = 70437-1) 0 Unknown Unknown F Ordering Physician UnknownLaboratory Qicopln4229-66-18 04:33:00Identifier 05280- 6 Result Time 2018-10-04 04:33:00Unknown Test Item Value Reference Range Comments Unknown (test code = 771-6) 0 10^3/ul Unknown Unknown F Ordering Physician UnknownLaboratory Kztlqtr4463-42-46 04:33:00Identifier 16279- 6 Result Time 2018-10-04 04:33:00Unknown Test Item Value Reference Range Comments Unknown (test code = 770-8) 62.0 % Unknown Unknown F Ordering Physician UnknownLaboratory Uqnrdno7168-41-49 04:33:00Identifier 78401- 6 Result Time 2018-10-04 04:33:00Unknown Test Item Value Reference Range Comments Unknown (test code = 5905-5) 14.1 % Unknown Unknown F Ordering Physician UnknownLaboratory Bsukkvb8623-59-90 04:33:00Identifier 43219- 6 Result Time 2018-10-04 04:33:00Unknown Test Item Value Reference Range Comments Unknown (test code = 38628-4) 8.2 fL Unknown 7.4-10.4 F Ordering Physician UnknownLaboratory Loukbmc5982-33-46 04:33:00Identifier 32758- 6 Result Time 2018-10-04 04:33:00Unknown Test Item Value Reference Range Comments Unknown (test code = 787-2) 92 fL Unknown 80-94 F Ordering Physician UnknownLaboratory Zbcyjcn5356-81-12 04:33:00Identifier 55979- 6 Result Time 2018-10-04 04:33:00Unknown Test Item Value Reference Range Comments Unknown (test code = 786-4) 34 g/dL Unknown 31-36 F Ordering Physician UnknownLaboratory Aonglar1823-33-42 04:33:00Identifier 98616- 6 Result Time 2018-10-04 04:33:00Unknown Test Item Value Reference Range Comments Unknown (test code = 785-6) 31 pg Unknown - F Ordering Physician UnknownLaboratory Rjjibtl2095-64-03 04:33:00Identifier 74366- 6 Result Time 2018-10-04 04:33:00Unknown Test Item Value Reference Range Comments Unknown (test code = 736-9) 21.1 % Unknown Unknown F Ordering Physician UnknownLaboratory Mpzcdzh9243-05-22 04:33:00Identifier 00192- 6 Result Time 2018-10-04 04:33:00Unknown Test Item Value Reference Range Comments Unknown (test code = 718-7) 12.2 g/dL Unknown 14.0-18.0 F Ordering Physician UnknownLaboratory Ihspznb0043-09-85 04:33:00Identifier 69845- 6 Result Time 2018-10-04 04:33:00Unknown Test Item Value Reference Range Comments Unknown (test code = 4544-3) 36 % Unknown 36-46 F Ordering Physician UnknownLaboratory Sjmpyqi8825-67-19 04:33:00Identifier 91910- 6 Result Time 2018-10-04 04:33:00Unknown Test Item Value Reference Range Comments Unknown (test code = 713-8) 2.4 % Unknown Unknown F Ordering Physician UnknownLaboratory Oazstza9374-37-21 04:33:00Identifier 52832- 6 Result Time 2018-10-04 04:33:00Unknown Test Item Value Reference Range Comments Unknown (test code = 706-2) 0.4 % Unknown Unknown F Ordering Physician UnknownLaboratory Qcqtozo1429-41-62 04:33:00Identifier 77121- 6 Result Time 2018-10-04 04:33:00Unknown Test Item Value Reference Range Comments Unknown (test code = 751-8) 4.0 10^3/ul Unknown 1.5-7.7 F Ordering Physician UnknownLaboratory Xzxaynv2117-29-33 04:33:00Identifier 55916- 6 Result Time 2018-10-04 04:33:00Unknown Test Item Value Reference Range Comments Unknown (test code = 742-7) 0.9 10^3/ul Unknown 0-0.8 F Ordering Physician UnknownLaboratory Lqmwkzw8271-58-24 04:33:00Identifier 39863- 6 Result Time 2018-10-04 04:33:00Unknown Test Item Value Reference Range Comments Unknown (test code = 731-0) 1.4 10^3/ul Unknown 1.0-4.8 F Ordering Physician UnknownLaboratory Lgjdgkv4401-86-23 04:33:00Identifier 09983- 6 Result Time 2018-10-04 04:33:00Unknown Test Item Value Reference Range Comments Unknown (test code = 711-2) 0.2 10^3/ul Unknown 0-0.6 F Ordering Physician UnknownLaboratory Iccbdud1121-93-33 04:33:00Identifier 27984- 6 Result Time 2018-10-04 04:33:00Unknown Test Item Value Reference Range Comments Unknown (test code = 704-7) 0 10^3/ul Unknown 0-0.2 F Ordering Physician UnknownLaboratory Qwjmwrb2951-88-35 21:14:00Identifier 13556- 6 Result Time 2018-10-03 21:14:00Unknown Test Item Value Reference Range Comments Unknown (test code = 3095-7) 727 mg/dL Unknown Unknown F Ordering Physician UnknownLaboratory Vwzzpiq3475-08-72 21:14:00Identifier 08144- 6 Result Time 2018-10-03 21:14:00Unknown Test Item Value Reference Range Comments Unknown (test code = 2955-3) 54 mmol/L Unknown Unknown F Ordering Physician UnknownLaboratory Ejjlcgw3800-73-55 21:14:00Identifier 60668- 6 Result Time 2018-10-03 21:14:00Unknown Test Item Value Reference Range Comments Unknown (test code = 2161-8) 88.57 mg/dL Unknown Unknown F Ordering Physician UnknownLaboratory Lxwitnl8493-50-88 19:37:00Identifier 10896- 6 Result Time 2018-10-03 19:37:00Unknown Test Item Value Reference Range Comments Unknown (test code = 32168-4) 0.03 ng/mL Unknown Unknown F Ordering Physician UnknownLaboratory Egzkvjf7448-73-39 06:49:00Identifier 67951- 6 Result Time 2018-10-03 06:49:00Unknown Test Item Value Reference Range Comments Unknown (test code = NullTestCode) 5.0 Unknown 5-9 F Ordering Physician UnknownLaboratory Lqwhzoh3187-33-65 06:49:00Identifier 98850- 6 Result Time 2018-10-03 06:49:00Unknown Test Item Value Reference Range Comments Unknown (test code = 75313-0) 1.011 Unknown 1.010-1.030 F Ordering Physician UnknownLaboratory Vixmamr3684-48-10 03:30:00Identifier 41124- 6 Result Time 2018-10-03 03:30:00Unknown Test Item Value Reference Range Comments Unknown (test code = 3016-3) 2.96 mcIU/mL Unknown 0.34-5.60 F Ordering Physician UnknownLaboratory Qrmuwpl3147-10-86 03:30:00Identifier 08024- 6 Result Time 2018-10-03 03:30:00Unknown Test Item Value Reference Range Comments Unknown (test code = 2524-7) 1.2 mmol/L Unknown 0.5-2.0 F Ordering Physician Unknown
--- OUTSIDE RECORDS SUMMARY | 2019-06-08 15:21 | XMS REPORT ---
:1940 Author Organization [facility] Care Team Providers Name Role Phone Unavailable [...] Result Comments Laboratory Studies 2018-10-08 07:33:00 Identifier [id number] Result Time Unknown 2018-10-08 07:33:00 Test Item Value Reference Range Comments Unknown (test code = 2339-0) 131 mg/dL Unknown 70-100 F Ordering Physician UnknownLaboratory Qtfdjsv7451-63-82 07:41:00Identifier 21299- 6 Result Time 2018-10-07 07:41:00Unknown Test Item Value Reference Range Comments Unknown (test code = 2951-2) 134 mmol/L Unknown 135-145 F Ordering Physician UnknownLaboratory Bgwzuuo1175-59-27 07:41:00Identifier 70618- 6 Result Time 2018-10-07 07:41:00Unknown Test Item Value Reference Range Comments Unknown (test code = 2823-3) 4.1 mmol/L Unknown 3.5-5.0 F Ordering Physician UnknownLaboratory Vuccxjf9691-18-98 07:41:00Identifier 34947- 6 Result Time 2018-10-07 07:41:00Unknown Test Item Value Reference Range Comments Unknown (test code = 2345-7) 101 mg/dL Unknown 70-100 F Ordering Physician UnknownLaboratory Juchlit3116-48-43 07:41:00Identifier 46090- 6 Result Time 2018-10-07 07:41:00Unknown Test Item Value Reference Range Comments Unknown (test code = 12623-5) 57.7 Unknown Unknown F Ordering Physician UnknownLaboratory Mbwygrt8114-02-33 07:41:00Identifier 82572- 6 Result Time 2018-10-07 07:41:00Unknown Test Item Value Reference Range Comments Unknown (test code = NullTestCode) 69.8 Unknown Unknown F Ordering Physician UnknownLaboratory Cijecef6628-59-54 07:41:00Identifier 33580- 6 Result Time 2018-10-07 07:41:00Unknown Test Item Value Reference Range Comments Unknown (test code = 2160-0) 1.21 mg/dL Unknown 0.67-1.17 F Ordering Physician UnknownLaboratory Kbjnoap4417-71-26 07:41:00Identifier 47227- 6 Result Time 2018-10-07 07:41:00Unknown Test Item Value Reference Range Comments Unknown (test code = 2075-0) 101 mmol/L Unknown 101-111 F Ordering Physician UnknownLaboratory Xwinlzd4133-79-76 07:41:00Identifier 78068- 6 Result Time 2018-10-07 07:41:00Unknown Test Item Value Reference Range Comments Unknown (test code = 2028-9) 25 mmol/L Unknown 22-32 F Ordering Physician UnknownLaboratory Ancncyx4139-27-26 07:41:00Identifier 84890- 6 Result Time 2018-10-07 07:41:00Unknown Test Item Value Reference Range Comments Unknown (test code = 27551-1) 9.1 mg/dL Unknown 8.6-10.3 F Ordering Physician UnknownLaboratory Gdlbanx7507-52-40 07:41:00Identifier 82095- 6 Result Time 2018-10-07 07:41:00Unknown Test Item Value Reference Range Comments Unknown (test code = 3094-0) 14 mg/dL Unknown 6-24 F Ordering Physician UnknownLaboratory Rbdmydd0106-89-13 07:41:00Identifier 41426- 6 Result Time 2018-10-07 07:41:00Unknown Test Item Value Reference Range Comments Unknown (test code = 3097-3) 11.6 Unknown 8-20 F Ordering Physician UnknownLaboratory Dgphvcl2298-42-69 07:41:00Identifier 12133- 6 Result Time 2018-10-07 07:41:00Unknown Test Item Value Reference Range Comments Unknown (test code = 13551-4) 8 mmol/L Unknown 2-11 F Ordering Physician UnknownLaboratory Egasjbl9737-34-68 22:12:00Identifier 72877- 6 Result Time 2018-10-05 22:12:00Unknown Test Item Value Reference Range Comments Unknown (test code = 60295-1) 355 mg/dL Unknown 70-100 F Ordering Physician UnknownLaboratory Lmarbsq3561-88-28 04:45:00Identifier 03342- 6 Result Time 2018-10-05 04:45:00Unknown Test Item Value Reference Range Comments Unknown (test code = 1988-5) 23.24 mg/L Unknown 0-8.00 F Ordering Physician UnknownLaboratory Pvbfrmf2403-84-35 21:41:00Identifier 94148- 6 Result Time 2018-10-04 21:41:00Unknown Test Item Value Reference Range Comments Unknown (test code = 2143-6) 6.51 mcg/dL Unknown Unknown F Ordering Physician UnknownLaboratory Okbrogr2222-61-35 04:33:00Identifier 71790- 6 Result Time 2018-10-04 04:33:00Unknown Test Item Value Reference Range Comments Unknown (test code = 58497-2) 48 pg/mL Unknown Unknown F Ordering Physician UnknownLaboratory Tuzjdkf7570-94-33 04:33:00Identifier 70231- 6 Result Time 2018-10-04 04:33:00Unknown Test Item Value Reference Range Comments Unknown (test code = 2885-2) 6.7 g/dL Unknown 6.4-8.9 F Ordering Physician UnknownLaboratory Abxvcec4338-91-01 04:33:00Identifier 56980- 6 Result Time 2018-10-04 04:33:00Unknown Test Item Value Reference Range Comments Unknown (test code = 1975-2) 0.30 mg/dL Unknown 0.2-1.0 F Ordering Physician UnknownLaboratory Vzafqgw7466-54-73 04:33:00Identifier 92252- 6 Result Time 2018-10-04 04:33:00Unknown Test Item Value Reference Range Comments Unknown (test code = 2777-1) 3.4 mg/dL Unknown 2.5-5.0 F Ordering Physician UnknownLaboratory Wxmavzt4501-41-81 04:33:00Identifier 92310- 6 Result Time 2018-10-04 04:33:00Unknown Test Item Value Reference Range Comments Unknown (test code = 69914-3) 2.0 mg/dL Unknown 1.9-2.7 F Ordering Physician UnknownLaboratory Iunsxmm1318-95-51 04:33:00Identifier 34749- 6 Result Time 2018-10-04 04:33:00Unknown Test Item Value Reference Range Comments Unknown (test code = NullTestCode) 3.2 g/dL Unknown 2-4 F Ordering Physician UnknownLaboratory Gitkfnv3593-28-12 04:33:00Identifier 25979- 6 Result Time 2018-10-04 04:33:00Unknown Test Item Value Reference Range Comments Unknown (test code = 1920-8) 15 U/L Unknown 13-39 F Ordering Physician UnknownLaboratory Kzcnvua1848-69-14 04:33:00Identifier 03873- 6 Result Time 2018-10-04 04:33:00Unknown Test Item Value Reference Range Comments Unknown (test code = 6768-6) 72 U/L Unknown 34-104 F Ordering Physician UnknownLaboratory Ycdhpmj8578-93-99 04:33:00Identifier 78958- 6 Result Time 2018-10-04 04:33:00Unknown Test Item Value Reference Range Comments Unknown (test code = 1759-0) 1.1 Unknown 1-3 F Ordering Physician UnknownLaboratory Uqbxtki1931-58-96 04:33:00Identifier 07781- 6 Result Time 2018-10-04 04:33:00Unknown Test Item Value Reference Range Comments Unknown (test code = 53113-2) 3.5 g/dL Unknown 3.2-5.2 F Ordering Physician UnknownLaboratory Ajpncqm0071-41-69 04:33:00Identifier 82191- 6 Result Time 2018-10-04 04:33:00Unknown Test Item Value Reference Range Comments Unknown (test code = 1742-6) 12 U/L Unknown 7-52 F Ordering Physician UnknownLaboratory Lqqrerm9764-27-91 04:33:00Identifier 83174- 6 Result Time 2018-10-04 04:33:00Unknown Test Item Value Reference Range Comments Unknown (test code = 05184-4) 6.5 10^3/uL Unknown 3.5-10.8 F Ordering Physician UnknownLaboratory Zearnrq0318-21-54 04:33:00Identifier 22972- 6 Result Time 2018-10-04 04:33:00Unknown Test Item Value Reference Range Comments Unknown (test code = 788-0) 14 % Unknown 10.5-15 F Ordering Physician UnknownLaboratory Srxvvgz1624-69-47 04:33:00Identifier 01083- 6 Result Time 2018-10-04 04:33:00Unknown Test Item Value Reference Range Comments Unknown (test code = 789-8) 3.96 10^6 /uL Unknown 4.18-5.48 F Ordering Physician UnknownLaboratory Ktdrhyr5205-11-60 04:33:00Identifier 53752- 6 Result Time 2018-10-04 04:33:00Unknown Test Item Value Reference Range Comments Unknown (test code = 777-3) 223 10^3/uL Unknown 150-450 F Ordering Physician UnknownLaboratory Hzvniik1049-92-92 04:33:00Identifier 52500- 6 Result Time 2018-10-04 04:33:00Unknown Test Item Value Reference Range Comments Unknown (test code = 85972-8) 0 Unknown Unknown F Ordering Physician UnknownLaboratory Whthozi0444-02-31 04:33:00Identifier 88079- 6 Result Time 2018-10-04 04:33:00Unknown Test Item Value Reference Range Comments Unknown (test code = 771-6) 0 10^3/ul Unknown Unknown F Ordering Physician UnknownLaboratory Eljpvvc2015-55-97 04:33:00Identifier 17426- 6 Result Time 2018-10-04 04:33:00Unknown Test Item Value Reference Range Comments Unknown (test code = 770-8) 62.0 % Unknown Unknown F Ordering Physician UnknownLaboratory Bemzoco5926-67-62 04:33:00Identifier 16318- 6 Result Time 2018-10-04 04:33:00Unknown Test Item Value Reference Range Comments Unknown (test code = 5905-5) 14.1 % Unknown Unknown F Ordering Physician UnknownLaboratory Jrvvxki2924-35-51 04:33:00Identifier 68595- 6 Result Time 2018-10-04 04:33:00Unknown Test Item Value Reference Range Comments Unknown (test code = 11138-1) 8.2 fL Unknown 7.4-10.4 F Ordering Physician UnknownLaboratory Diixepi1408-61-02 04:33:00Identifier 86573- 6 Result Time 2018-10-04 04:33:00Unknown Test Item Value Reference Range Comments Unknown (test code = 787-2) 92 fL Unknown 80-94 F Ordering Physician UnknownLaboratory Mvepkfw0783-02-00 04:33:00Identifier 31539- 6 Result Time 2018-10-04 04:33:00Unknown Test Item Value Reference Range Comments Unknown (test code = 786-4) 34 g/dL Unknown 31-36 F Ordering Physician UnknownLaboratory Smpkrsx5951-80-62 04:33:00Identifier 59418- 6 Result Time 2018-10-04 04:33:00Unknown Test Item Value Reference Range Comments Unknown (test code = 785-6) 31 pg Unknown - F Ordering Physician UnknownLaboratory Ewulqrv2454-43-38 04:33:00Identifier 59713- 6 Result Time 2018-10-04 04:33:00Unknown Test Item Value Reference Range Comments Unknown (test code = 736-9) 21.1 % Unknown Unknown F Ordering Physician UnknownLaboratory Aifaktd4424-17-54 04:33:00Identifier 16779- 6 Result Time 2018-10-04 04:33:00Unknown Test Item Value Reference Range Comments Unknown (test code = 718-7) 12.2 g/dL Unknown 14.0-18.0 F Ordering Physician UnknownLaboratory Adkccsk6615-69-35 04:33:00Identifier 82484- 6 Result Time 2018-10-04 04:33:00Unknown Test Item Value Reference Range Comments Unknown (test code = 4544-3) 36 % Unknown 36-46 F Ordering Physician UnknownLaboratory Idhgcyr8694-50-88 04:33:00Identifier 45868- 6 Result Time 2018-10-04 04:33:00Unknown Test Item Value Reference Range Comments Unknown (test code = 713-8) 2.4 % Unknown Unknown F Ordering Physician UnknownLaboratory Zdhgoxx8111-09-90 04:33:00Identifier 87275- 6 Result Time 2018-10-04 04:33:00Unknown Test Item Value Reference Range Comments Unknown (test code = 706-2) 0.4 % Unknown Unknown F Ordering Physician UnknownLaboratory Ctujloo4538-78-30 04:33:00Identifier 06116- 6 Result Time 2018-10-04 04:33:00Unknown Test Item Value Reference Range Comments Unknown (test code = 751-8) 4.0 10^3/ul Unknown 1.5-7.7 F Ordering Physician UnknownLaboratory Oyqdxpm2553-60-82 04:33:00Identifier 44658- 6 Result Time 2018-10-04 04:33:00Unknown Test Item Value Reference Range Comments Unknown (test code = 742-7) 0.9 10^3/ul Unknown 0-0.8 F Ordering Physician UnknownLaboratory Ukyjtjy9891-71-33 04:33:00Identifier 15337- 6 Result Time 2018-10-04 04:33:00Unknown Test Item Value Reference Range Comments Unknown (test code = 731-0) 1.4 10^3/ul Unknown 1.0-4.8 F Ordering Physician UnknownLaboratory Auxxjth1083-95-99 04:33:00Identifier 93743- 6 Result Time 2018-10-04 04:33:00Unknown Test Item Value Reference Range Comments Unknown (test code = 711-2) 0.2 10^3/ul Unknown 0-0.6 F Ordering Physician UnknownLaboratory Ugkcbht5511-19-21 04:33:00Identifier 68404- 6 Result Time 2018-10-04 04:33:00Unknown Test Item Value Reference Range Comments Unknown (test code = 704-7) 0 10^3/ul Unknown 0-0.2 F Ordering Physician UnknownLaboratory Qowtmfe0380-19-21 21:14:00Identifier 16953- 6 Result Time 2018-10-03 21:14:00Unknown Test Item Value Reference Range Comments Unknown (test code = 3095-7) 727 mg/dL Unknown Unknown F Ordering Physician UnknownLaboratory Oiqawaq4856-39-02 21:14:00Identifier 36136- 6 Result Time 2018-10-03 21:14:00Unknown Test Item Value Reference Range Comments Unknown (test code = 2955-3) 54 mmol/L Unknown Unknown F Ordering Physician UnknownLaboratory Cnxmobf0028-35-75 21:14:00Identifier 27593- 6 Result Time 2018-10-03 21:14:00Unknown Test Item Value Reference Range Comments Unknown (test code = 2161-8) 88.57 mg/dL Unknown Unknown F Ordering Physician UnknownLaboratory Upgwokz8352-71-41 19:37:00Identifier 59691- 6 Result Time 2018-10-03 19:37:00Unknown Test Item Value Reference Range Comments Unknown (test code = 40111-2) 0.03 ng/mL Unknown Unknown F Ordering Physician UnknownLaboratory Rvpfqbl4603-37-03 06:49:00Identifier 93708- 6 Result Time 2018-10-03 06:49:00Unknown Test Item Value Reference Range Comments Unknown (test code = NullTestCode) 5.0 Unknown 5-9 F Ordering Physician UnknownLaboratory Hjzguhc7499-59-20 06:49:00Identifier 43910- 6 Result Time 2018-10-03 06:49:00Unknown Test Item Value Reference Range Comments Unknown (test code = 57591-9) 1.011 Unknown 1.010-1.030 F Ordering Physician UnknownLaboratory Llxybho0827-19-79 03:30:00Identifier 34378- 6 Result Time 2018-10-03 03:30:00Unknown Test Item Value Reference Range Comments Unknown (test code = 3016-3) 2.96 mcIU/mL Unknown 0.34-5.60 F Ordering Physician UnknownLaboratory Gwspape0667-48-84 03:30:00Identifier 79215- 6 Result Time 2018-10-03 03:30:00Unknown Test Item Value Reference Range Comments Unknown (test code = 2524-7) 1.2 mmol/L Unknown 0.5-2.0 F Ordering Physician Unknown
== END 2019-06-05 02:38 | disposition home or self-care (01) ==
LOC: ED 22:34
DX: H81.399 Other peripheral vertigo, unspecified ear (principal); E11.9 Type 2 diabetes mellitus without complications; E78.00 Pure hypercholesterolemia, unspecified; I10 Essential (primary) hypertension; I25.2 Old myocardial infarction; Z95.2 Presence of prosthetic heart valve; Z95.0 Presence of cardiac pacemaker; Z88.1 Allergy status to other antibiotic agents; Z88.2 Allergy status to sulfonamides
CPT/HCPCS: 99282

== ENCOUNTER 2020-06-02 11:02 | Inpatient (IN) ==
[2020-06-02] MEDS ORDERED: Vancomycin 1,500 MG in NS 0.9% 250 ml 250 ML IVPB ONE (12:36)
[2020-06-02 13:37] LABS: ABS Eosinophils 0.4 10^3/ul (0-0.6); ABS Lymphocytes 2.2 10^3/ul (1.0-4.8); ABS Monocytes 1.2 10^3/ul (0-0.8); ABS Neutrophils 6.6 10^3/ul (1.5-7.7); Hematocrit 46 % (42-52); Hemoglobin 15.5 g/dL (14.0-18.0); Lymphocyte % 21.2 %; Mean Corpuscular HGB Conc 33 g/dL (31-36); Mean Corpuscular Hemoglobin 31 pg (27-31); Mean Corpuscular Volume 92 fL (80-94); Mean Platelet Volume 9.4 fL (7.4-10.4); Platelet Count 225 10^3/uL (150-450); Red Blood Count 5.05 10^6 /uL (4.18-5.48); Red Cell Distribution Width 14 % (10-15); White Blood Count 10.4 10^3/uL (3.5-10.8)
[2020-06-02 13:51] LABS: INR 1.12 (0.82-1.09)
[2020-06-02 13:57] LABS: ALT 10 U/L (7-52); Albumin 4.1 g/dL (3.2-5.2); Albumin/Globulin Ratio 0.9 (1-3); Alkaline Phosphatase 105 U/L (34-104); BUN/Creatinine Ratio 14.4 (8-20); Blood Urea Nitrogen 19 mg/dL (6-24); C Reactive Protein 17.01 mg/L (<8.01); CO2 Carbon Dioxide 26 mmol/L (22-32); Calcium 9.5 mg/dL (8.6-10.3); Chloride 99 mmol/L (101-111); EGFR Non-African American 52.1 (>60); Globulin 4.5 g/dL (2-4); Glucose 132 mg/dL (70-100); Sodium 132 mmol/L (135-145); Total Protein 8.6 g/dL (6.4-8.9)
[2020-06-02 13:59] LABS: Anion Gap 7 mmol/L (2-11); Troponin I 0.02 ng/mL (<0.03)
[2020-06-02] MEDS ORDERED: Piperacillin/Tazobac ADVAN 3.375 GM in NS 0.9% 100 ml BAG 100 ML IV ONE (16:26)
[2020-06-02] MEDS ORDERED: Zosyn per Pharmacy NOTE FOLLOW UP SCH (17:00)
[2020-06-02] MEDS ORDERED: Vancomycin per Pharmacy 1 EA NOTE FOLLOW UP SCH (17:00)
[2020-06-02] MEDS: Enoxaparin 40 MG/0.4 ML SYR SUBCUT SCH (18:38)
[2020-06-02 19:35] LABS: Potassium Redraw 4.7 mmol/L (3.5-5.0)
[2020-06-02] MEDS ORDERED: Dextrose 50% Syringe 50 ml 25 GM/50 ML SYRINGE IV PUSH PRN (20:09)
[2020-06-02] MEDS: Aspirin EC 81 mg TAB.EC (enteric coated) PO SCH (22:58)
[2020-06-02] MEDS: Insulin GLARGINE 100 un/ml 10 ml VIAL SUBCUT SCH (22:58)
[2020-06-02] MEDS: ZOSYN 3.375 GM Q8H per EXTENDED INFUSION IV SCH (23:00)
[2020-06-03] MEDS: Vancomycin 1,250 MG in NS 0.9% 250 ml 250 ML IVPB SCH ×3 (03:47→17:32)
[2020-06-03 04:54] LABS: ABS Eosinophils 0.5 10^3/ul (0-0.6); ABS Monocytes 1.1 10^3/ul (0-0.8); ABS Neutrophils 5.7 10^3/ul (1.5-7.7); Eosinophil % 5.1 %; Hematocrit 40 % (42-52); Hemoglobin 13.3 g/dL (14.0-18.0); Lymphocyte % 21.1 %; Mean Corpuscular HGB Conc 34 g/dL (31-36); Mean Corpuscular Hemoglobin 31 pg (27-31); Mean Corpuscular Volume 91 fL (80-94); Mean Platelet Volume 8.9 fL (7.4-10.4); Platelet Count 186 10^3/uL (150-450); Red Blood Count 4.33 10^6 /uL (4.18-5.48); Red Cell Distribution Width 14 % (10-15); White Blood Count 9.3 10^3/uL (3.5-10.8)
[2020-06-03 05:15] LABS: BUN/Creatinine Ratio 15.7 (8-20); Calcium 8.8 mg/dL (8.6-10.3); EGFR African American 61.9 (>60); EGFR Non-African American 51.2 (>60); Potassium 4.2 mmol/L (3.5-5.0)
[2020-06-03] MEDS: ZOSYN 3.375 GM Q8H per EXTENDED INFUSION IV SCH (06:26)
[2020-06-03] MEDS ORDERED: Dextrose 50% Syringe 50 ml 25 GM/50 ML SYRINGE IV PUSH PRN (09:46)
[2020-06-03] MEDS: Insulin GLARGINE 100 un/ml 10 ml VIAL SUBCUT SCH ×2 (11:25→20:34)
[2020-06-03] MEDS ORDERED: ZOSYN 3.375 GM Q6H per 30 MIN INFUSION IV SCH (14:30)
[2020-06-03] MEDS: ZOSYN 3.375 GM Q6H per 30 MIN INFUSION IV SCH ×2 (17:07→23:30)
[2020-06-03] MEDS: Enoxaparin 40 MG/0.4 ML SYR SUBCUT SCH (17:30)
[2020-06-03] MEDS: Aspirin EC 81 mg TAB.EC (enteric coated) PO SCH (17:30)
[2020-06-04 06:16] LABS: ABS Eosinophils 0.4 10^3/ul (0-0.6); ABS Lymphocytes 1.9 10^3/ul (1.0-4.8); ABS Monocytes 1.2 10^3/ul (0-0.8); ABS Neutrophils 5.9 10^3/ul (1.5-7.7); Eosinophil % 4.5 %; Hematocrit 39 % (42-52); Hemoglobin 13.1 g/dL (14.0-18.0); Lymphocyte % 19.8 %; Mean Corpuscular HGB Conc 33 g/dL (31-36); Mean Corpuscular Hemoglobin 31 pg (27-31); Mean Corpuscular Volume 92 fL (80-94); Mean Platelet Volume 8.9 fL (7.4-10.4); Platelet Count 195 10^3/uL (150-450); Red Blood Count 4.27 10^6 /uL (4.18-5.48); Red Cell Distribution Width 14 % (10-15); White Blood Count 9.4 10^3/uL (3.5-10.8)
[2020-06-04 06:37] LABS: BUN/Creatinine Ratio 14.7 (8-20); C Reactive Protein 22.05 mg/L (<8.01); Calcium 8.8 mg/dL (8.6-10.3); EGFR African American 54.3 (>60); EGFR Non-African American 44.9 (>60); Potassium 4.1 mmol/L (3.5-5.0)
[2020-06-04] MEDS: ZOSYN 3.375 GM Q6H per 30 MIN INFUSION IV SCH ×2 (06:37→12:19)
[2020-06-04] MEDS: Vancomycin 1,250 MG in NS 0.9% 250 ml 250 ML IVPB SCH ×2 (07:42→17:45)
[2020-06-04] MEDS: Insulin GLARGINE 100 un/ml 10 ml VIAL SUBCUT SCH ×2 (08:47→22:23)
[2020-06-04] MEDS ORDERED: Vancomycin Trough Check NOTE FOLLOW UP ONE (17:00)
[2020-06-04 17:07] LABS: EGFR Non-African American 39.7 (>60)
[2020-06-04] MEDS: Enoxaparin 40 MG/0.4 ML SYR SUBCUT SCH (17:45)
[2020-06-04] MEDS: Aspirin EC 81 mg TAB.EC (enteric coated) PO SCH (18:22)
[2020-06-04] MEDS: Cefepime 1 GM in Dextrose 1 GM/50 ML BAG IV SCH (20:04)
[2020-06-04] MEDS: metroNIDAZOLE IV 500 MG/100ML 500 MG/100 ML BAG IVPB SCH (21:30)
[2020-06-04] MEDS: Vancomycin 1000 MG in NS 0.9% 250 ML IVPB SCH (22:38)
[2020-06-05] MEDS: Cefepime 1 GM in Dextrose 1 GM/50 ML BAG IV SCH ×2 (07:59→20:36)
[2020-06-05] MEDS: metroNIDAZOLE IV 500 MG/100ML 500 MG/100 ML BAG IVPB SCH (09:08)
[2020-06-05] MEDS: Insulin GLARGINE 100 un/ml 10 ml VIAL SUBCUT SCH ×2 (10:06→20:52)
[2020-06-05] MEDS: Vancomycin 1000 MG in NS 0.9% 250 ML IVPB SCH (10:38)
[2020-06-05 11:30] LABS: ABS Eosinophils 0.5 10^3/ul (0-0.6); ABS Lymphocytes 1.7 10^3/ul (1.0-4.8); ABS Monocytes 0.8 10^3/ul (0-0.8); ABS Neutrophils 3.9 10^3/ul (1.5-7.7); Eosinophil % 6.5 %; Hematocrit 38 % (42-52); Hemoglobin 12.9 g/dL (14.0-18.0); Mean Corpuscular HGB Conc 34 g/dL (31-36); Mean Corpuscular Hemoglobin 31 pg (27-31); Mean Corpuscular Volume 91 fL (80-94); Mean Platelet Volume 8.5 fL (7.4-10.4); Nucleated Red Blood Cells % 0.1; Platelet Count 193 10^3/uL (150-450); Red Blood Count 4.19 10^6 /uL (4.18-5.48); Red Cell Distribution Width 14 % (10-15); White Blood Count 6.9 10^3/uL (3.5-10.8)
[2020-06-05 11:47] LABS: BUN/Creatinine Ratio 13.2 (8-20); Calcium 8.9 mg/dL (8.6-10.3); EGFR Non-African American 47.1 (>60)
[2020-06-05] MEDS ORDERED: Iodixanol (CONTRAST) 320 MG/ML 100 ML SDV IV ONE (16:24)
[2020-06-05] MEDS: Aspirin EC 81 mg TAB.EC (enteric coated) PO SCH (17:46)
[2020-06-05] MEDS: Enoxaparin 40 MG/0.4 ML SYR SUBCUT SCH (17:46)
[2020-06-06] MEDS: metroNIDAZOLE IV 500 MG/100ML 500 MG/100 ML BAG IVPB SCH (01:09)
[2020-06-06] MEDS: Vancomycin 1000 MG in NS 0.9% 250 ML IVPB SCH (02:44)
[2020-06-06 07:55] LABS: ABS Eosinophils 0.4 10^3/ul (0-0.6); ABS Lymphocytes 1.5 10^3/ul (1.0-4.8); ABS Monocytes 0.9 10^3/ul (0-0.8); Hematocrit 39 % (42-52); Mean Corpuscular HGB Conc 33 g/dL (31-36); Mean Corpuscular Hemoglobin 31 pg (27-31); Mean Corpuscular Volume 92 fL (80-94); Mean Platelet Volume 8.6 fL (7.4-10.4); Platelet Count 192 10^3/uL (150-450); Red Blood Count 4.26 10^6 /uL (4.18-5.48); Red Cell Distribution Width 14 % (10-15); White Blood Count 6.8 10^3/uL (3.5-10.8)
[2020-06-06 08:05] LABS: BUN/Creatinine Ratio 12.9 (8-20); Calcium 8.7 mg/dL (8.6-10.3); EGFR African American 58.9 (>60); EGFR African American 59.8 (>60); EGFR Non-African American 48.6 (>60); EGFR Non-African American 49.5 (>60); Potassium 3.8 mmol/L (3.5-5.0)
[2020-06-06] MEDS ORDERED: Vancomycin Trough Check NOTE FOLLOW UP ONE ×2 (08:30→14:30)
[2020-06-06] MEDS: Insulin GLARGINE 100 un/ml 10 ml VIAL SUBCUT SCH (08:40)
[2020-06-06] MEDS ORDERED: Glucose ORAL 15 GM TUBE PO ONE (09:27)
[2020-06-06] MEDS ORDERED: Cefepime 1 GM in Dextrose 1 GM/50 ML BAG IV SCH (12:00)
[2020-06-06] MEDS ORDERED: metroNIDAZOLE IV 500 MG/100ML 500 MG/100 ML BAG IVPB SCH (13:00)
[2020-06-06 14:58] VITALS: BP 115/59
[2020-06-06] MEDS ORDERED: Vancomycin 1000 MG in NS 0.9% 250 ML IVPB SCH (15:00)
[2020-06-06] MEDS: Enoxaparin 40 MG/0.4 ML SYR SUBCUT SCH (17:19)
[2020-06-06] MEDS: Aspirin EC 81 mg TAB.EC (enteric coated) PO SCH (18:05)
== END 2020-06-06 20:05 | disposition home or self-care (01) | DRG 637 ==
LOC: ED 11:02 → SSU 15:34 → MED 06-03 09:53
PROVIDERS: ADMIT Internal Medicine; ATTEND Internal Medicine

== ENCOUNTER 2020-12-21 18:19 | Inpatient (IN) ==
[2020-12-21 19:04] LABS: Hematocrit 39 % (42-52); Hemoglobin 12.7 g/dL (14.0-18.0); Mean Corpuscular HGB Conc 33 g/dL (31-36); Mean Corpuscular Hemoglobin 30 pg (27-31); Mean Corpuscular Volume 92 fL (80-94); Platelet Count 280 10^3/uL (150-450); Red Blood Count 4.19 10^6 /uL (4.18-5.48); Red Cell Distribution Width 15 % (10-15); White Blood Count 24.8 10^3/uL (3.5-10.8)
[2020-12-21 19:08] LABS: ABS Basophils 0.1 10^3/ul (0-0.2); ABS Eosinophils 0.1 10^3/ul (0-0.6); ABS Lymphocytes 1.1 10^3/ul (1.0-4.8); ABS Monocytes 0.9 10^3/ul (0-0.8); ABS Neutrophils 22.6 10^3/ul (1.5-7.7); Eosinophil % 0.4 %; Lymphocyte % 4.5 %
[2020-12-21 19:24] LABS: ALT 3 U/L (7-52); Albumin/Globulin Ratio 0.7 (1-3); Alkaline Phosphatase 91 U/L (35-149); Anion Gap 14 mmol/L (2-11); Blood Urea Nitrogen 10 mg/dL (6-24); C Reactive Protein 46.64 mg/L (<8.01); CO2 Carbon Dioxide 19 mmol/L (22-32); Calcium 8.8 mg/dL (8.6-10.3); Chloride 98 mmol/L (101-111); EGFR African American 118.8 (>60); EGFR Non-African American 98.2 (>60); Globulin 4.3 g/dL (2-4); Glucose 304 mg/dL (70-100); Sodium 131 mmol/L (135-145); Total Protein 7.3 g/dL (6.4-8.9); Troponin I 0.03 ng/mL (<0.03)
[2020-12-21] MEDS ORDERED: Lorazepam PYXIS KEY PRN (20:48)
[2020-12-21] MEDS ORDERED: LORazepam 2 mg VIAL 1 ml IV PUSH PRN (20:48)
[2020-12-21] MEDS ORDERED: Albuterol HFA INHALER 8 gm MDI INH PRN (20:51)
[2020-12-21] MEDS: Insulin GLARGINE 100 un/ml 10 ml VIAL SUBCUT SCH (21:59)
[2020-12-22 00:20] VITALS: BP 93/51
[2020-12-22] MEDS: Insulin GLARGINE 100 un/ml 10 ml VIAL SUBCUT SCH ×2 (08:37→19:43)
[2020-12-22] MEDS ORDERED: Morphine ORAL CONCENTRATE 5 MG/0.25 ML ORAL.SYRIN SL PRN (14:16)
[2020-12-22] MEDS: Morphine 2 MG/ML SYRINGE IV PRN ×2 (14:16→19:56)
[2020-12-22] MEDS ORDERED: Aspirin EC 81 mg TAB.EC (enteric coated) PO SCH (18:00)
[2020-12-23] MEDS: Morphine 2 MG/ML SYRINGE IV PRN ×2 (06:48→09:50)
[2020-12-23] MEDS: Insulin GLARGINE 100 un/ml 10 ml VIAL SUBCUT SCH (08:40)
== END 2020-12-23 11:00 | disposition hospice, home (50) | DRG 951 ==
LOC: ED 18:19 → MED 20:48
PROVIDERS: ADMIT Hospitalist; ATTEND Internal Medicine